=== PATIENT | male | born 1940 | race Caucasian/White ===

== ENCOUNTER 2018-02-01 01:06 | Outpatient (CLI) | payer MEDICARE, OTHER, SELFPAY ==
--- NOTE | 2018-02-01 09:41 | DI.REPORT_ITS ---
SYMPTOM/DIAGNOSIS: PLEURAL EFFUSION J90 PA AND LATERAL CHEST: There is a region of volume loss and/or infiltrate involving the left lower lobe where a small pleural effusion is seen. The right lung is clear. The heart is somewhat enlarged, unchanged when compared with previous images in this patient who is status post CABG. SUMMARY: A small left pleural effusion is demonstrated. There is a question regarding a region of atelectasis and/or infiltrate involving the left lower lobe. Findings raising the possibility of an acute pneumonitis.
== END 2018-02-01 01:07 ==
PROVIDERS: PCP Family Medicine; Visit Provider Internal Medicine Interventional Cardiology
DX: J90 Pleural effusion, not elsewhere classified (principal); J18.9 Pneumonia, unspecified organism; I51.7 Cardiomegaly; Z95.1 Presence of aortocoronary bypass graft
CPT/HCPCS: 71046

== ENCOUNTER 2018-02-06 23:43 | Emergency (ER) | payer MEDICARE, OTHER, SELFPAY ==
--- NOTE | 2018-02-06 00:30 | DI.REPORT_ITS ---
SYMPTOMS/DIAGNOSIS: CHEST PAIN PA AND LATERAL CHEST: The examination is compared with previous examination of 02/01/18. The previously noted left pleural effusion is again seen. The lungs appear grossly clear. No right pleural effusion identified. The heart is enlarged with multiple mediastinal vascular clips consistent with previous CABG surgery. CONCLUSION: Stable left pleural effusion.
[2018-02-07 00:09] VITALS: BP 118/53; PULSE 85; RESP 12; TEMP 36.6; O2SAT 97
[2018-02-07] MEDS: Aspirin 81 MG CHEW 324 MG CH (00:14)
[2018-02-07 00:39] LABS: Abs Immature Grans 0.02 k/cumm (0.0-0.09); Absolute Basophil Count 0.02 k/cumm (0.0-0.2); Absolute Eosinophil Count 0.07 k/cumm (0.0-0.7); Absolute Lymphocyte Count 0.47 k/cumm (1.2-3.4); Absolute Monocyte Count 0.66 k/cumm (0.11-0.7); Absolute Neutrophil Count 4.92 k/cumm (1.2-6.7); Basophils % 0.3; Eosinophils % 1.1; HCT 36.8 % (40.0-50.0); HGB 11.5 g/dL (13.5-17.5); Immature Grans % 0.3; Lymphocytes % 7.6; Mean Corp. HGB Concentration 31.3 g/dL (32.0-36.0); Mean Corpuscular Hemoglobin 23.7 pg (27.0-33.0); Mean Corpuscular Volume 75.7 fL (80-95); Mean Platelet Volume 9.2 fL (8.0-11.0); Monocytes % 10.7; Platelet Count 135 x1000/uL (130-400); RBC 4.86 m/cumm (4.50-6.00); RBC Distribution Width 18.1 % (11.8-14.1); White Blood Cell Count 6.16 k/cumm (4.4-10.8)
--- NOTE | 2018-02-07 00:47 | ED.GENADUL ---
Disposition Clinical Impression: NSTEMI (non-ST elevated myocardial infarction), Diaphoresis, Hypokalemia Disposition: STEVE ROBERTO ([facility]) Condition: Stable Medical Decision Making - Medical Decision Making This is a 77-year-old male who presents for evaluation of epigastric pressure. He presents with diaphoresis, subjective fever at home of 100.6, no documentation of the fever here. He has decrease in his appetite, as well as mild fatigue. Patient certainly minimizes his symptoms, he denies any chest pain arm pain or neck pain. He had no pain when he had his previous open heart surgery. With the patient's diaphoresis, as well as epigastric pressure was concern for potential myocardial infarction. EKG does show notable hyperacute T-wave changes in the lateral leads. No evidence of ST elevations at this time. Bedside ultrasound was performed and demonstrated a trace pericardial effusion, but EKG shows no signs of electrical art alterations, there is no evidence of ventricular compromise secondary to the patient's trace pericardial effusion. And concern for potential cardiac etiology for symptomatology. We have given him aspirin, chest x-ray appears to show nothing significant at this time. We are awaiting virtual radiology read. With the patient's symptomatology am concerned that he will need transfer for further cardiac evaluation as we have no current open rooms in the hospital. EKG 02/07/18 12:04 AM Rate 84, RI 218, QTc 456, QRS 100, sinus rhythm. No ST elevations or depressions. Inverted T waves in V5, V6, and lead III and aVF and lead II. Review of prior EKG from 12/25/17 reveals that these T-wave changes are all acute in nature. 1: 30 2 AM Chest x-ray results have returned from virtual radiology and show persistent suspected left pleural effusion which appears unchanged in volume, no acute findings are detected, no significant interval change. Patient's troponin has returned at 0.04, his potassium is slightly low and we will correct this year. With the patient's equivocal troponin, his EKG changes, his diaphoresis and other clinical symptoms examined concern for an N STEMI. We will contact [facility], start heparin, and transfer the patient. I feel that this is indicated secondary to his known cardiac disease, his recent CABG, other symptoms. Of note differential does include potential viral myocarditis with his mild fever that he had at home, as well as his elevated troponin EKG changes. EKG 02/07/18 time 1: 33am Rate 72, RI 230, QTc 460, QRS 102 sinus rhythm with a first-degree AV block, inverted T waves in V5 and V6, as well as 2, 3, and aVF. 1:58 am I did discuss the case with Bina, Dr. Jack who did recommend cardiology evaluation, however [facility] is completely [facility] and they were unable to accept the patient. He did recommend starting a heparin infusion at this time we will start with 1000 U/h of heparin infusion. I did contact the [facility] discussed the case with of cardiology, who agreed with the assessment and plan. They to recommended transfer to the [facility] for cardiology evaluation, serial troponins, and potential cardiac catheterization. Due to bed placement issues they have agreed to ER to ER transfer in the meantime until a bed opens up. Patient will be transferred. I have extensively reviewed the treatment plan with the patient. I have addressed all patient concerns at this time. I have also discussed the plan with the admitting physician and they agree with the current assessment and plan and have agreed to assume responsibility for the patient. All parties demonstrate verbal understanding and agreement with our assessment and plan at this time. History of Present Illness - General Chief complaint: Fever Stated complaint: UNKNOWN Time Seen by Provider: 02/06/18 23:44 - History of Present Illness Initial comments: Is a 77-year-old male with a past medical history of open heart surgery in August for which she received double bypass at [facility], pericardial effusion, polycystic kidney disease, hypertension, and sleep apnea as well as mild obesity. He presents today for evaluation of mild epigastric pain, pressure in his lower chest, decrease in appetite, as well as diaphoresis and a fever of 100.6 subjectively at home. He did take Tylenol prior to arrival. Patient's symptoms are not made worse with exertion. He has been notably diaphoretic over the last 2 hours. Patient denies any arm pain, shoulder pain or neck pain. He denies any cough or shortness of breath. He has no other complaints at this time. For his previous myocardial infarction he had no chest pain at that time, already other significant symptoms. Patient did take 81 mg of aspirin earlier today. Patient denies any other recent surgeries. He no longer smokes tobacco. He denies any IV or illicit drug use. He has no other complaints at this time. - Related Data RX: Cholecalciferol (Vitamin D3) [Vitamin D3] 1,000 unit PO DAILY NS 05/22/13 RX: Glucosamine Sulfate Dipot Chlr [Glucosamine] 1,000 mg PO DAILY NS 05/22/13 RX: Aspirin [Aspir 81] 81 mg PO DAILY 10/30/15 RX: Omeprazole [PriLOSEC] 20 mg PO DAILY 10/30/15 RX: Selenium [Selenium 200MCG] 100 mcg PO .EVERY OTHER DAY 10/30/15 RX: Chlorthalidone [Hygroton] 25 mg PO DAILY tab-cap 06/21/17 Bisoprolol Fumarate [Zebeta] 2.5 mg PO DAILY 12/05/17 RX: Acetaminophen [Pain Reliever] 1,000 mg PO Q6H PRN PRN 12/05/17 RX: Rosuvastatin [Crestor] 20 mg PO DAILY 12/05/17 RX: Allopurinol 200 mg PO DAILY 02/07/18 Allergies Allergy/AdvReac Type Severity Reaction Status Date / Time fentanyl AdvReac vomiting Unverified 02/07/18 01:02 Review of Systems Other: 10 point review of systems was performed, pertinent positives and negatives are noted in the history of present illness. Past Medical History - Past Medical History Medical history: arthritis, CAD, hyperlipidemia, hypertension Gout, obesity, MALCOM, polycystic kidney disease, esophageal stricture Surgical history: coronary bypass surgery General Exam - Other Other exam information: 1.Const: Well-nourished, Well-developed, appearing stated age, and notably diaphoretic. Patient demonstrates profuse sweating from the head. 2.Eyes: PERRL, no conjunctival injection, and symmetrical lids. 3.ENT: Atraumatic external nose and ears. Moist MM. Neck: Symmetric, trachea midline, No thyromegaly. 4.CVS: +S1/S2, No murmurs or gallops. Peripheral pulses 2+ and equal in all extremities. Brisk capillary refill in all extremities. 5.RESP: Unlabored respiratory effort. Clear to auscultation bilaterally. No wheezes rales or rhonchi, no evidence of friction rub, or other abnormality. 6.GI: Soft, Nontender/Nondistended, No hepatosplenomegaly. No guarding or rebound. Minimal pressure on palpation of the epigastric region. 7.MSK: Normocephalic/Atraumatic, Extremities w/o deformity or ttp No cyanosis or clubbing, Normal movement of all extremities 8.Skin: Warm, diaphoretic. No rashes or lesions. 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 Sensation grossly intact, no focal neurologic deficits. 10.Psych: (AAO) x3. Appropriate mood and affect Course Vital Signs - 24 hr 02/07/18 00:09 Temperature 36.6 C Pulse 85 Respiratory 12 Rate Blood Pressure 118/53 Pulse Oximetry 97
--- NOTE | 2018-02-07 00:50 | ED.GENADUL_ITS ---
Disposition Clinical Impression: NSTEMI (non-ST elevated myocardial infarction), Diaphoresis, Hypokalemia Disposition: STEVE ROBERTO ([facility]) Condition: Stable Medical Decision Making - Medical Decision Making This is a 77-year-old male who presents for evaluation of epigastric pressure. He presents with diaphoresis, subjective fever at home of 100.6, no documentation of the fever here. He has decrease in his appetite, as well as mild fatigue. Patient certainly minimizes his symptoms, he denies any chest pain arm pain or neck pain. He had no pain when he had his previous open heart surgery. With the patient's diaphoresis, as well as epigastric pressure was concern for potential myocardial infarction. EKG does show notable hyperacute T -wave changes in the lateral leads. No evidence of ST elevations at this time. Bedside ultrasound was performed and demonstrated a trace pericardial effusion , but EKG shows no signs of electrical art alterations, there is no evidence of ventricular compromise secondary to the patient's trace pericardial effusion. And concern for potential cardiac etiology for symptomatology. We have given him aspirin, chest x-ray appears to show nothing significant at this time. We are awaiting virtual radiology read. With the patient's symptomatology am concerned that he will need transfer for further cardiac evaluation as we have no current open rooms in the hospital. EKG 02/07/18 12:04 AM Rate 84, ND 218, QTc 456, QRS 100, sinus rhythm. No ST elevations or depressions. Inverted T waves in V5, V6, and lead III and aVF and lead II. Review of prior EKG from 12/25/17 reveals that these T-wave changes are all acute in nature. 1: 30 2 AM Chest x-ray results have returned from virtual radiology and show persistent suspected left pleural effusion which appears unchanged in volume, no acute findings are detected, no significant interval change. Patient's troponin has returned at 0.04, his potassium is slightly low and we will correct this year. With the patient's equivocal troponin, his EKG changes, his diaphoresis and other clinical symptoms examined concern for an N STEMI. We will contact [facility], start heparin, and transfer the patient. I feel that this is indicated secondary to his known cardiac disease, his recent CABG, other symptoms. Of note differential does include potential viral myocarditis with his mild fever that he had at home, as well as his elevated troponin EKG changes. EKG 02/07/18 time 1: 33am Rate 72, ND 230, QTc 460, QRS 102 sinus rhythm with a first-degree AV block, inverted T waves in V5 and V6, as well as 2, 3, and aVF. 1:58 am I did discuss the case with Bina, Dr. Jack who did recommend cardiology evaluation, however [facility] is completely [facility] and they were unable to accept the patient. He did recommend starting a heparin infusion at this time we will start with 1000 U/h of heparin infusion. I did contact the [facility] discussed the case with of cardiology, who agreed with the assessment and plan. They to recommended transfer to the [facility] for cardiology evaluation, serial troponins, and potential cardiac catheterization. Due to bed placement issues they have agreed to ER to ER transfer in the meantime until a bed opens up. Patient will be transferred. I have extensively reviewed the treatment plan with the patient. I have addressed all patient concerns at this time. I have also discussed the plan with the admitting physician and they agree with the current assessment and plan and have agreed to assume responsibility for the patient. All parties demonstrate verbal understanding and agreement with our assessment and plan at this time. History of Present Illness - General Chief complaint: Fever Stated complaint: UNKNOWN Time Seen by Provider: 02/06/18 23:44 - History of Present Illness Initial comments: Is a 77-year-old male with a past medical history of open heart surgery in August for which she received double bypass at [facility], pericardial effusion, polycystic kidney disease, hypertension, and sleep apnea as well as mild obesity. He presents today for evaluation of mild epigastric pain, pressure in his lower chest, decrease in appetite, as well as diaphoresis and a fever of 100.6 subjectively at home. He did take Tylenol prior to arrival. Patient's symptoms are not made worse with exertion. He has been notably diaphoretic over the last 2 hours. Patient denies any arm pain, shoulder pain or neck pain. He denies any cough or shortness of breath. He has no other complaints at this time. For his previous myocardial infarction he had no chest pain at that time, already other significant symptoms. Patient did take 81 mg of aspirin earlier today. Patient denies any other recent surgeries. He no longer smokes tobacco. He denies any IV or illicit drug use. He has no other complaints at this time. - Related Data RX: Cholecalciferol (Vitamin D3) [Vitamin D3] 1,000 unit PO DAILY NS 05/22/13 RX: Glucosamine Sulfate Dipot Chlr [Glucosamine] 1,000 mg PO DAILY NS 05/22/13 RX: Aspirin [Aspir 81] 81 mg PO DAILY 10/30/15 RX: Omeprazole [PriLOSEC] 20 mg PO DAILY 10/30/15 RX: Selenium [Selenium 200MCG] 100 mcg PO .EVERY OTHER DAY 10/30/15 RX: Chlorthalidone [Hygroton] 25 mg PO DAILY tab-cap 06/21/17 Bisoprolol Fumarate [Zebeta] 2.5 mg PO DAILY 12/05/17 RX: Acetaminophen [Pain Reliever] 1,000 mg PO Q6H PRN PRN 12/05/17 RX: Rosuvastatin [Crestor] 20 mg PO DAILY 12/05/17 RX: Allopurinol 200 mg PO DAILY 02/07/18 Allergies Allergy/AdvReac Type Severity Reaction Status Date / Time fentanyl AdvReac vomiting Unverified 02/07/18 01:02 Review of Systems Other: 10 point review of systems was performed, pertinent positives and negatives are noted in the history of present illness. Past Medical History - Past Medical History Medical history: arthritis, CAD, hyperlipidemia, hypertension Gout, obesity, MALCOM, polycystic kidney disease, esophageal stricture Surgical history: coronary bypass surgery General Exam - Other Other exam information: 1.Const: Well-nourished, Well-developed, appearing stated age, and notably diaphoretic. Patient demonstrates profuse sweating from the head. 2.Eyes: PERRL, no conjunctival injection, and symmetrical lids. 3.ENT: Atraumatic external nose and ears. Moist MM. Neck: Symmetric, trachea midline, No thyromegaly. 4.CVS: +S1/S2, No murmurs or gallops. Peripheral pulses 2+ and equal in all extremities. Brisk capillary refill in all extremities. 5.RESP: Unlabored respiratory effort. Clear to auscultation bilaterally. No wheezes rales or rhonchi, no evidence of friction rub, or other abnormality. 6.GI: Soft, Nontender/Nondistended, No hepatosplenomegaly. No guarding or rebound. Minimal pressure on palpation of the epigastric region. 7.MSK: Normocephalic/Atraumatic, Extremities w/o deformity or ttp No cyanosis or clubbing, Normal movement of all extremities 8.Skin: Warm, diaphoretic. No rashes or lesions. 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 Sensation grossly intact, no focal neurologic deficits. 10.Psych: (AAO) x3. Appropriate mood and affect Course Vital Signs - 24 hr 02/07/18 00:09 Temperature 36.6 C Pulse 85 Respiratory 12 Rate Blood Pressure 118/53 Pulse Oximetry 97
[2018-02-07 01:00] LABS: ALT 12 U/L (12-78); AST 11 U/L (15-37); Albumin 3.4 g/dL (3.4-5.0); Alkaline Phosphatase 65 U/L (46-116); Anion Gap 12.5 mmol/L (3-11); BUN 17 mg/dL (7-18); Bilirubin, Total 1.3 mg/dL (0.2-1.0); CO2 23.5 mmol/L (21.0-32.0); CREATININE 1.44 mg/dL (0.70-1.30); Calcium 9.4 mg/dL (8.5-10.1); Chloride 102 mmol/L (98-107); Estimated GFR 47.57 (mL/min/1.73m2); Glucose 145 mg/dL (70-100); Lipase 148 U/L (73-393); Potassium 3.1 mmol/L (3.5-5.1); Sodium 138 mmol/L (136-145); Troponin I 0.04 ng/mL (0.00-0.06)
[2018-02-07 01:07] LABS: Anisocytosis 1+; Diff Comment RBC Morph Reviewed
[2018-02-07] MEDS: Potassium Chloride 20 MEQ TABCR 40 MEQ PO (01:15)
--- NOTE | 2018-02-07 01:27 | DI.VRAD_ITS ---
EXAM: XR Chest, 2 Views EXAM DATE/TIME: 02/06/2018 12:33 AM CLINICAL HISTORY: 77 years old, male; Signs and symptoms; Fever; Prior surgery; Surgery date: 1-6 months; Surgery type: Bypass surgery in august; Patient HX: Fever, states no chest pain TECHNIQUE: XR of the chest, 2 views. COMPARISON: CR - CHEST 2 VIEWS PA,LAT 2018-02-01 09:40 FINDINGS: Lungs: Unremarkable. No consolidation. Pleural space: There remains obscuration of the left hemidiaphragm and opacity of the left lung base thought consistent with pleural effusion. Heart/Mediastinum: There is evidence of previous CABG surgery. Cardiac size is within normal limits. Vasculature: There is atherosclerotic plaque is seen within the aortic arch. Bones/joints: The osseous structures appear to be diffusely osteopenic and unchanged. Marginal osteophytic spurring is present throughout the thoracic vertebrae. Other findings: This finding appears unchanged in volume. IMPRESSION: 1. Persistent suspected left pleural effusion appears unchanged in volume. 2. No acute findings are detected. 3. No significant interval change. Dictated and Authenticated by: Roderick Villanueva MD. Ordering:ESCOBAR YANG MD
== END 2018-02-07 02:50 | disposition short-term general hospital (02) ==
PROVIDERS: Emergency Provider Student in an Organized Health Care Education/Training Program; PCP Family Medicine
DX: I21.4 Non-ST elevation (NSTEMI) myocardial infarction (principal); R61 Generalized hyperhidrosis; E87.6 Hypokalemia; R94.31 Abnormal electrocardiogram [ECG] [EKG]; Z95.828 Presence of other vascular implants and grafts; I10 Essential (primary) hypertension; I25.810 Atherosclerosis of coronary artery bypass graft(s) without angina pectoris; Z95.1 Presence of aortocoronary bypass graft
CPT/HCPCS: 36591; 71046; 93005; 96365; 96376; 99285 ×2; 36415; 80053; 83690; 84484; 85025; 93010

== ENCOUNTER 2018-02-12 10:24 | Outpatient (CLI) | payer MEDICARE, OTHER, SELFPAY | END 2018-02-12 10:25 | PROVIDERS: PCP Family Medicine; Visit Provider Internal Medicine Interventional Cardiology | DX: I49.3 Ventricular premature depolarization (principal); I25.10 Atherosclerotic heart disease of native coronary artery without angina pectoris | CPT/HCPCS: 93005; 93010; 99213 ==

== ENCOUNTER 2018-02-12 10:30 | Outpatient (CLI) | payer MEDICARE, OTHER, SELFPAY | END 2018-02-12 10:31 | PROVIDERS: PCP Family Medicine; Visit Provider Internal Medicine Interventional Cardiology | DX: I25.810 Atherosclerosis of coronary artery bypass graft(s) without angina pectoris (principal); I31.3 Pericardial effusion (noninflammatory); R06.09 Other forms of dyspnea; G47.30 Sleep apnea, unspecified; I10 Essential (primary) hypertension | CPT/HCPCS: 99213 ==

== ENCOUNTER 2018-02-22 14:08 | Outpatient (REF) | payer MEDICARE, OTHER, SELFPAY ==
[2018-02-22 19:23] LABS: Bilirubin Small (Negative); Blood Moderate (Negative); Clarity Cloudy; Glucose Negative (Negative); Ketones Negative (Negative); Leukocyte Esterase Moderate (Negative); Nitrite Negative (Negative); Specific Gravity 1.025 (1.005-1.025); pH 5.5 (5-8)
[2018-02-22 19:48] LABS: WBC >50 HPF (0-5)
[2018-02-22 19:49] LABS: Bacteria Many HPF (Negative); C & S Indicated? C&S Done As Ordered
== END 2018-02-22 14:09 ==
LOC: NCHCN 14:08
PROVIDERS: PCP Family Medicine; Visit Provider Family Medicine
DX: N39.0 Urinary tract infection, site not specified (principal)
CPT/HCPCS: 87077; 81003; 81015; 87086; 87186

== ENCOUNTER → 2018-03-08 10:52 | Outpatient (BNVA) | payer MEDICARE, OTHER, SELFPAY | PROVIDERS: PCP Family Medicine; Visit Provider Nurse Practitioner Gerontology | DX: N40.1 Benign prostatic hyperplasia with lower urinary tract symptoms (principal); R39.198 Other difficulties with micturition; Z80.42 Family history of malignant neoplasm of prostate; Z87.440 Personal history of urinary (tract) infections; I10 Essential (primary) hypertension | CPT/HCPCS: 36415; 81003; 84153; 99204; 99214 ==

== ENCOUNTER 2018-03-08 12:17 | Outpatient (CLI) | payer MEDICARE, OTHER, SELFPAY ==
[2018-03-09 09:09] LABS: PSA, Screening 2.1 ng/ml (0-6.5)
== END 2018-03-08 12:37 ==
PROVIDERS: PCP Family Medicine; Visit Provider Nurse Practitioner Gerontology
DX: Z12.5 Encounter for screening for malignant neoplasm of prostate (principal); Z80.42 Family history of malignant neoplasm of prostate
CPT/HCPCS: 36415; 84153

== ENCOUNTER → 2018-03-14 13:24 | Outpatient (BNVA) | payer MEDICARE, OTHER, SELFPAY | PROVIDERS: PCP Family Medicine; Visit Provider Nurse Practitioner Gerontology | DX: N40.1 Benign prostatic hyperplasia with lower urinary tract symptoms (principal); R39.198 Other difficulties with micturition | CPT/HCPCS: 99213 ==

== ENCOUNTER 2018-05-14 10:09 | Outpatient (CLI) | payer MEDICARE, OTHER, SELFPAY | END 2018-05-14 10:29 | PROVIDERS: PCP Family Medicine; Visit Provider Internal Medicine Interventional Cardiology | DX: I25.810 Atherosclerosis of coronary artery bypass graft(s) without angina pectoris (principal); I31.3 Pericardial effusion (noninflammatory); I77.819 Aortic ectasia, unspecified site; R06.00 Dyspnea, unspecified; I10 Essential (primary) hypertension; G47.30 Sleep apnea, unspecified | CPT/HCPCS: 93005; 93010; 99213 ==

== ENCOUNTER 2018-05-28 01:28 | Outpatient (CLI) | payer MEDICARE, OTHER, SELFPAY ==
[2018-05-28 14:46] LABS: Hemoglobin A1C 6.3 % (4.5-6.2)
[2018-05-28 15:44] LABS: BUN 26 mg/dL (7-18); CREATININE 1.27 mg/dL (0.70-1.30); Calcium 9.7 mg/dL (8.5-10.1); Chloride 104 mmol/L (98-107); Estimated GFR 54.99 (mL/min/1.73m2); Glucose 105 mg/dL (70-100); Potassium 4.6 mmol/L (3.5-5.1); Sodium 141 mmol/L (136-145)
[2018-06-03 08:12] LABS: Uric Acid 5.9 mg/dL (3.5-7.2)
== END 2018-05-28 01:48 ==
PROVIDERS: PCP Family Medicine; Visit Provider Family Medicine
DX: I10 Essential (primary) hypertension (principal); R73.01 Impaired fasting glucose
CPT/HCPCS: 36415; 80048; 83036; 84550

== ENCOUNTER 2018-06-07 11:00 | Outpatient (RCR) | payer SELFPAY ==
--- NOTE | 2018-06-05 12:14 | PR3E_ITS ---
77 year old male who graduated Cardiac Rehabilitation Phase 2 on January 22, 2018, s/p CABG 08/2017, voluntarily enrolled in maintenance Phase 3, 2 days per week. PMH: CABGx3 (09/11/17), HTN, HLD, CAD, MALCOM (CPAP compliant), osteoarthritis, gout , esophageal stricture, pituitary microadenoma. First day of exercise: 05/29/18: NuStep 10 minutes, UBE 10 minutes, Treadmill 10 minutes and Second UBE 10 minutes. Weight 288, BMI 31.70. BP at rest 154/80, HR rest 89bpm. HR with exercise 89-100 bpm, BP with exercise 119-165/64-72. ERI RPE scores 10-13. Tolerated exercise regimen without any adverse signs or symptoms. No concerns at this time, will continue to progress as tolerated.
== END 2018-06-25 23:59 ==
LOC: CR 11:00
PROVIDERS: PCP Family Medicine; Visit Provider Family Medicine
DX: Z95.1 Presence of aortocoronary bypass graft (principal); I25.10 Atherosclerotic heart disease of native coronary artery without angina pectoris; I10 Essential (primary) hypertension; Z51.89 Encounter for other specified aftercare

== ENCOUNTER 2018-06-21 07:56 | Outpatient (CLI) | payer MEDICARE, OTHER, SELFPAY ==
--- NOTE | 2018-06-21 11:03 | DI.RAD_ITS ---
SYMPTOM/DIAGNOSIS: ACUTE BRONCHITIS WITH BRONCHOSPASM, J20.9, DYSPNEA ON EXERTION PA AND LATERAL CHEST: The lungs are free of infiltrate. There is no pleural effusion. The cardiovascular structures are intact. The patient is status post CABG and coronary artery calcification is demonstrated. SUMMARY: No evidence of acute cardiopulmonary disease.
== END 2018-06-21 08:16 ==
PROVIDERS: PCP Family Medicine; Visit Provider Family Medicine
DX: J20.9 Acute bronchitis, unspecified (principal); R06.09 Other forms of dyspnea; Z95.1 Presence of aortocoronary bypass graft
CPT/HCPCS: 71046

== ENCOUNTER 2018-07-26 11:00 | Outpatient (RCR) | payer SELFPAY | END 2018-07-26 23:59 | disposition home or self-care (01) | LOC: CR 11:00 | PROVIDERS: PCP Family Medicine; Visit Provider Family Medicine | DX: Z95.1 Presence of aortocoronary bypass graft (principal); I25.10 Atherosclerotic heart disease of native coronary artery without angina pectoris; I10 Essential (primary) hypertension; Z51.89 Encounter for other specified aftercare ==

== ENCOUNTER 2018-08-13 20:14 | Outpatient (REF) | payer MEDICARE, OTHER, SELFPAY ==
[2018-08-13 20:28] LABS: Bilirubin Negative (Negative); Blood Moderate (Negative); Clarity Cloudy; Glucose Negative (Negative); Ketones Negative (Negative); Leukocyte Esterase Moderate (Negative); Nitrite Negative (Negative); Urobilinogen 0.2 EU/dL (Up TO 0.2); pH 5.5 (5-8)
[2018-08-13 20:40] LABS: C & S Indicated? Yes; WBC >50 HPF (0-5)
== END 2018-08-13 20:34 ==
LOC: NCHCN 20:14
PROVIDERS: PCP Family Medicine; Visit Provider Family Medicine
DX: Q61.3 Polycystic kidney, unspecified (principal)
CPT/HCPCS: 87077; 81003; 81015; 87086; 87186

== ENCOUNTER 2018-08-17 01:21 | Outpatient (CLI) | payer MEDICARE, OTHER, SELFPAY ==
--- NOTE | 2018-08-17 21:28 | PFT_ITS ---
DATE OF SERVICE: 08/17/18 REQUESTING PROVIDER: Devorah Epstein M.D. Spirometry shows no evidence of obstructive airways disease. No bronchodilator testing was carried out. Lung volumes show no evidence of restriction. Diffusion capacity mildly reduced, even when corrected to alveolar volume. Airways resistance normal. IMPRESSION: Isolated mild diffusion defect. Clinical correlation recommended. If the diagnosis of cough variant asthma is in question, proceeding with methylcholine challenge testing may prove to be useful.
== END 2018-08-17 01:41 ==
PROVIDERS: PCP Family Medicine; Visit Provider Family Medicine
DX: R05 Cough (principal)
CPT/HCPCS: 94150; 94726; 94729; 94010

== ENCOUNTER 2018-08-23 12:53 | Outpatient (RCR) | payer SELFPAY | END 2018-08-23 23:59 | disposition home or self-care (01) | LOC: CR 12:53 | PROVIDERS: PCP Family Medicine; Visit Provider Family Medicine | DX: Z95.1 Presence of aortocoronary bypass graft (principal); I25.10 Atherosclerotic heart disease of native coronary artery without angina pectoris; I10 Essential (primary) hypertension; Z51.89 Encounter for other specified aftercare ==

== ENCOUNTER 2018-09-11 11:00 | Outpatient (RCR) | payer SELFPAY | END 2018-09-23 23:59 | disposition home or self-care (01) | LOC: CR 11:00 | PROVIDERS: PCP Family Medicine; Visit Provider Family Medicine | DX: Z95.1 Presence of aortocoronary bypass graft (principal); I25.10 Atherosclerotic heart disease of native coronary artery without angina pectoris; I10 Essential (primary) hypertension; Z51.89 Encounter for other specified aftercare ==

== ENCOUNTER 2018-09-18 12:33 | Outpatient (REF) | payer MEDICARE, OTHER, SELFPAY ==
[2018-09-18 12:55] LABS: NT-proBNP 2437 pg/mL
== END 2018-09-18 12:53 ==
LOC: NCHCN 12:33
PROVIDERS: PCP Family Medicine; Visit Provider Family Medicine
DX: R06.02 Shortness of breath (principal); J20.9 Acute bronchitis, unspecified
CPT/HCPCS: 83880

== ENCOUNTER 2018-09-21 15:46 | Outpatient (CLI) | payer MEDICARE, OTHER, SELFPAY ==
--- NOTE | 2018-09-21 16:11 | DI.RAD_ITS ---
SYMPTOM/DIAGNOSIS: SOB, R06/02, ELEVATED BNAP PA AND LATERAL CHEST: There are multiple mediastinal vascular clips consistent with previous CABG surgery. Cardiac size is within normal limits. Lungs are clear. No pleural effusion is seen. CONCLUSION: No evidence of acute disease.
== END 2018-09-21 16:06 ==
PROVIDERS: PCP Family Medicine; Visit Provider Family Medicine
DX: R06.02 Shortness of breath (principal); R79.89 Other specified abnormal findings of blood chemistry
CPT/HCPCS: 71046

== ENCOUNTER 2018-09-25 03:04 | Outpatient (RCR) | payer SELFPAY | END 2018-10-23 23:59 | disposition home or self-care (01) | LOC: CR 03:04 | PROVIDERS: PCP Family Medicine; Visit Provider Family Medicine | DX: Z95.1 Presence of aortocoronary bypass graft (principal); I25.10 Atherosclerotic heart disease of native coronary artery without angina pectoris; I10 Essential (primary) hypertension; Z51.89 Encounter for other specified aftercare ==

== ENCOUNTER 2018-10-02 00:53 | Outpatient (CLI) | payer MEDICARE, SELFPAY ==
--- NOTE | 2018-10-02 10:30 | MERGE_ITS ---
*[facility]* *[facility]* [address] [place] [address] Date of study: 10/02/2018 Transthoracic Echocardiography M-mode, complete 2D, complete spectral Doppler, and color Doppler *STUDY CONCLUSIONS* Summary: 1. Left ventricle: The cavity size was normal. Wall thickness was increased in a pattern of moderate LVH. There was severe asymmetric hypertrophy of the septum. Systolic function was hyperdynamic. The estimated ejection fraction was 65-70%. There was no dynamic obstruction. Wall motion was normal; there were no regional wall motion abnormalities. Septal thickness, ED (PLAX): 2.0cm. 2. Aortic valve: Trileaflet; moderately calcified leaflets. There was mild stenosis. There was mild regurgitation. Peak velocity (S): 2.2m/sec. Mean gradient (S): 11.1mm Hg. Valve area (VTI): 2cm^2. 3. 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 The maximal diameter was 4.5cm. 4. Left atrium: The atrium was mildly dilated. 5. Right ventricle: The cavity size was dilated. Wall thickness was normal. Systolic function was normal. Minor axis dimension, ED (basilar, A4C): 5.7cm. 6. Right atrium: The atrium was dilated. Area ES (A4C): 25.3cm^2. *PATIENT PRESENTATION* Height: 182.9cm ((72in) ) S/D Pressure: 135 / 74 Weight: 126.6kg ((278.4lb) ) BSA: 2.58m^2 Test start time: 10:40 AM. Test stop time: 11:40 AM. CONSULTING Devorah Epstein PERFORMING Unknown PERFORMING [facility] PLASTIC EXTRUDING MACHINE OPERATOR Virgen Strauss RT JonelR)(CT), [facility] ORDERING Gerald Rutledge REFERRING Gerald Rutledge *PROCEDURE DATA* Procedure information: This study was interpreted by [facility]. Pertinent images and digital data are archived for permanent storage and are available for subsequent review. Comparison was made to the study of May 2017. Study status: Routine. Transthoracic echocardiography. M-mode, complete 2D, complete spectral Doppler, and color Doppler. A Transthoracic Echocardiogram was performed. Scanning was performed from the parasternal, apical, subcostal, and suprasternal notch acoustic windows. Images were obtained using an [id number] cardiac ultrasound machine. Image quality was adequate. Study completion: The patient tolerated the procedure well. There were no complications. History: PMH: Increasing SOB. elevated BNaP. r06.02 CAD. *CARDIAC ANATOMY* Left ventricle: The cavity size was normal. Wall thickness was increased in a pattern of moderate LVH. There was severe asymmetric hypertrophy of the septum. Systolic function was hyperdynamic. The estimated ejection fraction was 65-70%. There was no dynamic obstruction. Wall motion was normal; there were no regional wall motion abnormalities. Diastolic parameters were normal for age. Aortic valve: Trileaflet; moderately calcified leaflets. Valve mobility was restricted. Doppler: There was mild stenosis. There was mild regurgitation. VTI ratio of LVOT to aortic valve: 0.56. Valve area (VTI): 2cm^2. Indexed valve area (VTI): 0.8cm^2/m^2. Peak velocity ratio of LVOT to aortic valve: 0.43. Valve area (Vmax): 1.6cm^2. Indexed valve area (Vmax): 0.6cm^2/m^2. Mean velocity ratio of LVOT to aortic valve: 0.51. Valve area (Vmean): 1.8cm^2. Indexed valve area (Vmean): 0.7cm^2/m^2. Mean gradient (S): 11.1mm Hg. Peak gradient (S): 19.6mm Hg. 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 The maximal diameter was 4.5cm. Aortic root: The aortic root was moderately dilated. 4.5 cm. Ascending aorta: The ascending aorta was moderately dilated. 4.5 cm. Aortic arch: The aortic arch was normal in size. Mitral valve: Structurally normal valve. Mobility was not restricted. Doppler: Transvalvular velocity was within the normal range. There was no evidence for stenosis. There was no significant regurgitation. Valve area by pressure half-time: 3cm^2. Indexed valve area by pressure half-time: 1.1cm^2/m^2. Peak gradient (D): 3.8mm Hg. Left atrium: The atrium was mildly dilated. Right ventricle: The cavity size was dilated. Wall thickness was normal. Systolic function was normal. Pulmonic valve: Doppler: Transvalvular velocity was within the normal range. There was no evidence for stenosis. There was no significant regurgitation. Tricuspid valve: Structurally normal valve. Doppler: Transvalvular velocity was within the normal range. There was no evidence for stenosis. There was no significant regurgitation. Pulmonary artery: Systolic pressure could not be accurately estimated. Right atrium: The atrium was dilated. Pericardium: There was no pericardial effusion. Systemic veins: Inferior vena cava: Well visualized. The vessel was patent and normal in size. The respirophasic diameter changes were in the normal range (greater than or equal to 50%). Baseline ECG: Sinus bradycardia. Measurements Left ventricle Value 06/08/2017 Reference LV ID, ED, PLAX 5.0 cm 4.2 3.5 - 6.0 LV ID, ES, PLAX 3.1 cm 3.0 2.1 - 4.0 LV PW thickness, ED, PLAX 1.4 cm 1.6 LV end-diastolic volume, 119 ml 79 1-p A2C LV ejection fraction, 1-p 64 % 59 A2C LV end-diastolic volume, 103 ml 103 1-p A4C LV ejection fraction, 1-p 71 % 48 A4C LV e', lateral 0.101 m/sec LV E/e', lateral 10 LV e', medial 0.072 m/sec LV E/e', medial 14 LV e', average 0.087 m/sec LV E/e', average 11 Ventricular septum Value 06/08/2017 Reference IVS thickness, ED, PLAX 2.0 cm 1.9 LVOT Value 06/08/2017 Reference LVOT ID, A-P 2.1 cm 2.2 LVOT area 3.6 cm^2 3.9 LVOT peak velocity, S 0.96 m/sec 1.07 LVOT mean velocity, S 0.8 m/sec LVOT VTI, S 25.2 cm 24.3 LVOT peak gradient, S 3.7 mm Hg LVOT mean gradient, S 2.7 mm Hg 2.9 Stroke volume (SV), LVOT 90 ml DP Stroke index (SV/bsa), 35 ml/m^2 LVOT DP Aortic valve Value 06/08/2017 Reference Aortic valve peak 2.2 m/sec velocity, S Aortic valve mean 1.57 m/sec 0.01 velocity, S Aortic valve VTI, S 45.0 cm Aortic mean gradient, S 11.1 mm Hg 8.3 Aortic peak gradient, S 19.6 mm Hg VTI ratio, LVOT/AV 0.56 Aortic valve area, VTI 2 cm^2 Velocity ratio, peak, 0.43 LVOT/AV Aortic valve area, peak 1.6 cm^2 velocity Velocity ratio, mean, 0.51 LVOT/AV Aortic valve area, mean 1.8 cm^2 velocity Aortic valve area/bsa, 0.7 cm^2/m^2 mean velocity Aorta Value 06/08/2017 Reference Aortic root ID, ED 4.5 cm Ascending aorta ID, A-P, S 4.5 cm 4.6 Left atrium Value 06/08/2017 Reference LA ID, A-P, ES 4.1 cm LA ID/bsa, A-P 1.6 cm/m^2 <=2.2 LA area, ES, A4C (H) 24.3 cm^2 8.8 - 23.4 LA area, ES, A2C 26 cm^2 LA volume/bsa, ES, 1-p A4C 35 ml/m^2 LA volume, ES, 2-p 84 ml LA volume/bsa, ES, 2-p 32 ml/m^2 LA/aortic root ratio 0.91 1.05 Mitral valve Value 06/08/2017 Reference Mitral E-wave peak 0.98 m/sec 0.57 velocity Mitral A-wave peak 0.74 m/sec 0.85 velocity Mitral deceleration time (H) 257 ms 315 150 - 230 Mitral pressure half-time 75 ms 91 Mitral peak gradient, D 3.8 mm Hg Mitral E/A ratio, peak 1.33 0.67 Mitral valve area, PHT, DP 3 cm^2 2.4 Pulmonary veins Value 06/08/2017 Reference Pulmonary vein peak 0.43 m/sec 0.47 velocity, S Pulmonary vein peak 0.69 m/sec 0.36 velocity, D Pulmonary vein velocity 0.62 1.3 ratio, peak, S/D Tricuspid valve Value 06/08/2017 Reference Tricuspid regurg peak 2.7 m/sec 2.6 velocity Tricuspid peak RV-RA 29.2 mm Hg 26.5 gradient Right atrium Value 06/08/2017 Reference RA area, ES, A4C (H) 25.3 cm^2 8.3 - 19.5 Right ventricle Value 06/08/2017 Reference RV ID, minor axis, ED, A4C 5.7 cm base Legend: (L) and (H) issac values outside specified reference range. I have personally reviewed the images and have reviewed and edited the reported findings. Electronically signed by Maxwell Marks 10/02/2018 12:58
== END 2018-10-02 01:13 ==
PROVIDERS: PCP Family Medicine; Visit Provider Family Medicine
DX: R06.02 Shortness of breath (principal); I25.10 Atherosclerotic heart disease of native coronary artery without angina pectoris; I06.2 Rheumatic aortic stenosis with insufficiency; I71.2 Thoracic aortic aneurysm, without rupture; I51.7 Cardiomegaly
CPT/HCPCS: 93306

== ENCOUNTER 2018-10-08 09:25 | Outpatient (CLI) | payer MEDICARE, OTHER, SELFPAY | END 2018-10-08 09:45 | PROVIDERS: PCP Family Medicine; Visit Provider Internal Medicine Interventional Cardiology | DX: I25.10 Atherosclerotic heart disease of native coronary artery without angina pectoris (principal); I31.3 Pericardial effusion (noninflammatory); R06.00 Dyspnea, unspecified; I10 Essential (primary) hypertension; R05 Cough | CPT/HCPCS: 99214; 99215; 93005; 93010 ==

== ENCOUNTER 2018-10-22 12:29 | Outpatient (CLI) | payer MEDICARE, OTHER, SELFPAY ==
[2018-10-22 13:10] LABS: HCT 27.3 % (40.0-50.0); HGB 7.6 g/dL (13.5-17.5); Mean Corp. HGB Concentration 27.8 g/dL (32.0-36.0); Mean Corpuscular Hemoglobin 18.9 pg (27.0-33.0); Mean Corpuscular Volume 67.9 fL (80-95); Platelet Count 260 x1000/uL (130-400); RBC 4.02 m/cumm (4.50-6.00); RBC Distribution Width 18.8 % (11.8-14.1); White Blood Cell Count 5.56 k/cumm (4.4-10.8)
[2018-10-22 14:13] LABS: Anion Gap 13.2 mmol/L (3-11); BUN 25 mg/dL (7-18); CO2 23.8 mmol/L (21.0-32.0); CREATININE 1.44 mg/dL (0.70-1.30); Calcium 9.2 mg/dL (8.5-10.1); Chloride 103 mmol/L (98-107); Estimated GFR 47.45 (mL/min/1.73m2); Glucose 141 mg/dL (70-100); Potassium 3.8 mmol/L (3.5-5.1); Sodium 140 mmol/L (136-145)
[2018-10-22 14:16] LABS: NT-proBNP 2000 pg/mL
[2018-10-22 18:23] LABS: Iron 11 ug/dL (50-175); Total Iron Binding Capacity 329 ug/dL (250-450); Transferrin Sat 3 % (20-55)
[2018-10-22 18:50] LABS: Ferritin 37 ng/mL (8-388); Folate 19.8 ng/mL (8.6-20.0); Vitamin B12 382 pg/mL (193-986)
== END 2018-10-22 12:49 ==
PROVIDERS: PCP Family Medicine; Visit Provider Internal Medicine Interventional Cardiology
DX: I48.91 Unspecified atrial fibrillation (principal); R06.02 Shortness of breath; D64.9 Anemia, unspecified; I10 Essential (primary) hypertension
CPT/HCPCS: 36415; 80048; 80051; 84520; 85027; 82565; 82607; 82728; 82746; 83540; 83550; 83880

== ENCOUNTER 2018-10-22 16:06 | Outpatient (REF) | payer MEDICARE, OTHER, SELFPAY | END 2018-10-22 16:26 | LOC: NCHCN 16:06 | PROVIDERS: PCP Family Medicine; Visit Provider Family Medicine | DX: R05 Cough (principal) | CPT/HCPCS: 87077; 87070; 87205 ==

== ENCOUNTER 2018-10-24 01:14 | Outpatient (CLI) | payer MEDICARE, OTHER, SELFPAY ==
--- NOTE | 2018-10-24 08:00 | DI.CT_ITS ---
SYMPTOM/DIAGNOSIS: CHRONIC COUGH, R05, FEVER, ? PNEUMONIA, EMPYEMA, PLEURAL EFFUSION CHEST CT: CT scan of the chest was performed without intravenous contrast material. Comparison is made with 06/16/17 and 12/05/17. There is atherosclerosis of the thoracic aorta. Heart size is within normal limits. No significant pericardial effusion is seen. The patient appears to be status post CABG. Sternal wires are in place. No significant thoracic adenopathy is appreciated. No pleural effusion or pneumothorax is identified. There is scarring or atelectasis seen in the right lung base. No focal consolidating infiltrates or pulmonary nodules are identified. The tracheobronchial tree is unremarkable. There are degenerative changes seen in the spine. Marked degenerative changes are seen in the shoulders bilaterally. IMPRESSION: No acute pulmonary process. No evidence of pleural effusion, consolidating infiltrate or focal fluid collection to suggest an empyema.
== END 2018-10-24 01:34 ==
PROVIDERS: PCP Family Medicine; Visit Provider Family Medicine
DX: R50.9 Fever, unspecified (principal); Z95.1 Presence of aortocoronary bypass graft
CPT/HCPCS: 71250

== ENCOUNTER 2018-10-24 05:36 | Outpatient (RCR) | payer SELFPAY | END 2018-11-23 23:59 | disposition home or self-care (01) | LOC: CR 05:36 | PROVIDERS: PCP Family Medicine; Visit Provider Family Medicine | DX: Z95.1 Presence of aortocoronary bypass graft (principal); I25.10 Atherosclerotic heart disease of native coronary artery without angina pectoris; I10 Essential (primary) hypertension; Z51.89 Encounter for other specified aftercare ==

== ENCOUNTER 2018-10-25 01:25 | Outpatient (CLI) | payer MEDICARE, OTHER, SELFPAY ==
[2018-10-25 12:15] LABS: HGB 7.7 g/dL (13.5-17.5); Mean Corp. HGB Concentration 27.5 g/dL (32.0-36.0); Mean Platelet Volume 8.8 fL (8.0-11.0); Platelet Count 238 x1000/uL (130-400); RBC 4.06 m/cumm (4.50-6.00); RBC Distribution Width 19.1 % (11.8-14.1); White Blood Cell Count 4.46 k/cumm (4.4-10.8)
[2018-10-26 12:38] LABS: IgA 183 mg/dL (85-499); Interpretation SEE COMMENTS; Tissue Transglutaminase IgA <1.2 U/mL (<4.0)
== END 2018-10-25 01:45 ==
PROVIDERS: PCP Family Medicine; Visit Provider Family Medicine
DX: D64.9 Anemia, unspecified (principal)
CPT/HCPCS: 36415; 82784; 83516; 85027

== ENCOUNTER 2018-10-31 01:23 | Outpatient (CLI) | payer MEDICARE, OTHER, SELFPAY ==
[2018-10-31 12:17] LABS: HCT 31.9 % (40.0-50.0); HGB 8.7 g/dL (13.5-17.5); Mean Corp. HGB Concentration 27.3 g/dL (32.0-36.0); Mean Corpuscular Hemoglobin 19.3 pg (27.0-33.0); Mean Corpuscular Volume 70.9 fL (80-95); Mean Platelet Volume 8.7 fL (8.0-11.0); RBC Distribution Width 21.7 % (11.8-14.1); White Blood Cell Count 7.97 k/cumm (4.4-10.8)
[2018-10-31 12:22] LABS: Platelet Count 284 x1000/uL (130-400)
[2018-10-31 14:40] LABS: Ferritin 18 ng/mL (8-388)
== END 2018-10-31 01:43 ==
PROVIDERS: PCP Family Medicine; Visit Provider Family Medicine
DX: D50.9 Iron deficiency anemia, unspecified (principal)
CPT/HCPCS: 36415; 85027; 86850; 86900; 86901; 82728

== ENCOUNTER 2018-11-07 08:03 | Outpatient (CLI) | payer MEDICARE, OTHER, SELFPAY | END 2018-11-07 08:23 | PROVIDERS: PCP Family Medicine; Visit Provider Internal Medicine Interventional Cardiology | DX: I25.10 Atherosclerotic heart disease of native coronary artery without angina pectoris (principal); I31.3 Pericardial effusion (noninflammatory); I77.819 Aortic ectasia, unspecified site; I10 Essential (primary) hypertension; R06.09 Other forms of dyspnea; R05 Cough | CPT/HCPCS: 99214; 93005; 93010; 99213 ==

== ENCOUNTER 2018-11-21 02:01 | Outpatient (CLI) | payer MEDICARE, OTHER, SELFPAY ==
[2018-11-21 10:58] LABS: Abs Immature Grans 0.01 k/cumm (0.0-0.09); Absolute Basophil Count 0.02 k/cumm (0.0-0.2); Absolute Eosinophil Count 0.28 k/cumm (0.0-0.7); Absolute Lymphocyte Count 0.78 k/cumm (1.2-3.4); Absolute Monocyte Count 0.32 k/cumm (0.11-0.7); Basophils % 0.7; Eosinophils % 10.3; HCT 37.7 % (40.0-50.0); HGB 10.9 g/dL (13.5-17.5); Immature Grans % 0.4; Lymphocytes % 28.8; Mean Corp. HGB Concentration 28.9 g/dL (32.0-36.0); Mean Corpuscular Hemoglobin 23.4 pg (27.0-33.0); Mean Corpuscular Volume 81.1 fL (80-95); Mean Platelet Volume 8.4 fL (8.0-11.0); Monocytes % 11.8; Platelet Count 145 x1000/uL (130-400); RBC 4.65 m/cumm (4.50-6.00); White Blood Cell Count 2.71 k/cumm (4.4-10.8)
[2018-11-21 11:42] LABS: Anisocytosis 3+; Diff Comment Diff Reviewed; Ovalocytes 2+; Polychromasia Present
[2018-11-21 11:43] LABS: Poikilocytes 2+
[2018-11-21 11:58] LABS: Ferritin 41 ng/mL (8-388)
== END 2018-11-21 02:21 ==
PROVIDERS: PCP Family Medicine; Visit Provider Family Medicine
DX: D50.9 Iron deficiency anemia, unspecified (principal)
CPT/HCPCS: 36415; 82728; 85025

== ENCOUNTER 2018-12-20 11:26 | Outpatient (RCR) | payer SELFPAY | END 2018-12-23 23:59 | disposition home or self-care (01) | LOC: CR 11:26 | PROVIDERS: PCP Family Medicine; Visit Provider Family Medicine | DX: Z95.1 Presence of aortocoronary bypass graft (principal); I25.10 Atherosclerotic heart disease of native coronary artery without angina pectoris; I10 Essential (primary) hypertension; Z51.89 Encounter for other specified aftercare ==

== ENCOUNTER 2018-12-25 14:02 | Outpatient (CLI) | payer MEDICARE, OTHER, SELFPAY ==
[2018-12-25 16:03] LABS: Anion Gap 11.4 mmol/L (3-11); BUN 20 mg/dL (7-18); CO2 23.6 mmol/L (21.0-32.0); CREATININE 1.26 mg/dL (0.70-1.30); Calcium 9.5 mg/dL (8.5-10.1); Calculated LDL 38 mg/dL; Chloride 110 mmol/L (98-107); Cholesterol 97 mg/dL (50-200); Estimated GFR 55.35 (mL/min/1.73m2); Glucose 97 mg/dL (70-100); HDL Cholesterol 36 mg/dL (40-60); Potassium 4.3 mmol/L (3.5-5.1); Sodium 145 mmol/L (136-145); Triglyceride 116 mg/dL (30-150)
[2018-12-25 17:31] LABS: Hemoglobin A1C 5.5 % (4.5-6.2)
== END 2018-12-25 14:22 ==
PROVIDERS: PCP Family Medicine; Visit Provider Family Medicine
DX: I10 Essential (primary) hypertension (principal); R73.01 Impaired fasting glucose; N18.3 Chronic kidney disease, stage 3 (moderate); D50.9 Iron deficiency anemia, unspecified
CPT/HCPCS: 36415; 80048; 80061; 83721; 83036

== ENCOUNTER 2019-01-03 01:32 | Outpatient (CLI) | payer MEDICARE, OTHER, SELFPAY ==
[2019-01-03 12:41] LABS: HCT 45.9 % (40.0-50.0); HGB 14.4 g/dL (13.5-17.5); Mean Corp. HGB Concentration 31.4 g/dL (32.0-36.0); Mean Corpuscular Hemoglobin 27.3 pg (27.0-33.0); Mean Corpuscular Volume 87.1 fL (80-95); Mean Platelet Volume 9.7 fL (8.0-11.0); Platelet Count 140 x1000/uL (130-400); RBC 5.27 m/cumm (4.50-6.00); RBC Distribution Width 18.1 % (11.8-14.1); White Blood Cell Count 4.61 k/cumm (4.4-10.8)
== END 2019-01-03 01:52 ==
PROVIDERS: PCP Family Medicine; Visit Provider Family Medicine
DX: D50.9 Iron deficiency anemia, unspecified (principal)
CPT/HCPCS: 36415; 85027

== ENCOUNTER 2019-01-08 11:08 | Emergency (ER) | payer MEDICARE, OTHER, SELFPAY ==
[2019-01-08] VITALS (47 sets, daily range): BP systolic 148–177; BP diastolic 79–100; PULSE 60–124; RESP 10–25; TEMP 37.3; O2SAT 93–97
--- NOTE | 2019-01-08 11:25 | DI.RAD_ITS ---
SYMPTOMS/DIAGNOSIS: CHEST PAIN CHEST: Frontal and lateral views. Comparison 06/21/18 and 09/21/17. The cardiac silhouette is within normal limits. There are sternal wires and mediastinal clips in place. There is slight increased in the interstitial prominence particularly in the lung bases when compared to the prior examination. This may be due to vascular overcrowding but the possibility of an interstitial pneumonitis or edema should be considered. No focal consolidating infiltrates or effusions are seen. No pneumothorax is identified. Degenerative changes are seen in the spine. IMPRESSION: Mild interstitial prominence. This may represent an interstitial pneumonia, edema or vascular overcrowding.
--- NOTE | 2019-01-08 11:26 | W.ED.GENAD ---
Discharge Plan Disposition Patient Disposition: HOME Condition: Fair Discharge Details Chief Complaint: Chest Pain Clinical Impression: Atrial tachycardia Primary Care Provider: Devorah Epstein ED Provider: Ruth Ya Home Meds and New Rx's Prescriptions: Continued Dulera 100-5 mcg/actuation HFA aerosol inhaler 2 puff IH BID RF: 0 albuterol sulfate [ProAir HFA] 90 mcg/actuation HFA aerosol inhaler 1 puff IH Q6H PRNRF: 0 glucosamine sulfate 2KCl 1,000 MG tablet 1,000 mg PO DAILY RF: 0 cholecalciferol (vitamin D3) 1,000 UNIT tablet 1,000 unit PO DAILY RF: 0 tamsulosin [Flomax] 0.4 mg capsule 0.4 mg PO DAILY Qty: 90 RF: 2 hydralazine 10 mg tablet 20 mg PO TID Qty: 180 RF: 0 furosemide [Lasix] 20 mg tablet 20 mg PO DAILY Qty: 30 RF: 11 aspirin [Aspir-81] 81 MG tablet,delayed release (DR/EC) 81 mg PO DAILY RF: 0 omeprazole 20 MG capsule,delayed release(DR/EC) 20 mg PO DAILY RF: 0 selenium 200 mcg tablet 200 mcg PO DAILY RF: 0 bisoprolol fumarate 5 MG tablet 2.5 mg PO DAILY RF: 0 rosuvastatin [Crestor] 20 MG tablet 20 mg PO DAILY RF: 0 allopurinol 100 MG tablet 200 mg PO DAILY RF: 0 Discharge Instructions Instructions: Atrial Tachycardia (ED), Valsalva Maneuver (ED) Additional Instructions: Please continue with medications as previously prescribed. 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 Keep upcoming appointment with cardiology. If you develop recurrent symptoms please attempt valsalva technique as discussed, attached is description for this. If you develop fevers/chills, chest pain, shortness of breath, difficulty breathing or other new/worsening symptosm please seek care urgently once again. Referrals: Cristobal Marie MD [ [facility] STAFF PHYSICIAN] - Devorah Epstein MD [Primary Care Provider] - Medical Decision Making Patient is a 78-year-old male with history of CAD, gout, hypertension, hyperlipidemia, obesity, MALCOM, cystic kidney disease, esophageal stricture, pituitary microadenoma, [place]. Patient underwent a bypass at [facility] in August 2017. Patient was here being treated at cardiac rehab when he developed feeling of tightness in the right side of his upper breast. Patient initially was evaluated, he was noted to be slightly hypertensive, baseline for the patient, with normal heart rate. However, when the symptoms began the patient was reevaluated and noted to have a heart rate of 126. EKG was obtained at that time showing diffuse ST depression. Patient reports that he was sitting at the time the onset of symptoms and symptoms spontaneously resolved next 10 minutes after their onset. At this time, he is asymptomatic. Denies any chest pain or shortness of breath. No recent travel. Patient does report that after his CABG, he developed fluid around the heart and had to have 1 L taken off. States that this does not feel like he felt at that time. States at that point he was feeling quite fatigued but that he does not have any symptoms at this time. Patient states he has had one similar incident approximately 1 month ago. At that point, the patient had been exercising, had stopped and allowed his heart rate did come down and then symptoms developed. Again, the symptoms lasted approximately 10 to 15 minutes and spontaneously resolved. On exam, patient appears obese, he is in a regular rate and rhythm with a heart rate of 86 at this time. Patient is noted to be hypertensive with a blood pressure of 176/100. He has bilateral pitting edema. Oxygen is maintained at 95% on room air. He is afebrile and nontoxic-appearing EKG was reviewed by Dr. Ramos. Were able to compare a old EKG, the one from cardiac rehab as well as one obtained here. Patient at this time is in normal sinus rhythm with a rate of 86. He has nonspecific ST depression and T wave abnormality. At the time the EKG was completed in cardiac rehab, patient had similar ST depressions with a rate of 126. Patient takes 80 mg of aspirin daily, we will augment this for a full dosing for the patient. The patient is asymptomatic this time, will not pursue further treatment at this point. Plan for labs, chest x-ray and discussion with cardiology. Lab work reviewed. No blood cell count is slightly low at 3.9, patient has been low historically. PT PTT within normal limits. BUN is slightly elevated at 20. Patient's BNP is 952, this is not atypical for the patient. He has been elevated to over 2000 historically. His troponin is less than 0.05. Patient is resting comfortably, his blood pressures down. He remains asymptomatic. Plan to consult cardiology. Reviewed from radiologist is still pending. Consulted with Dr. Marks. He advised patient is demonstrating atrial tachycardia. He advised 30 day event monitor and f/u with cardiology after monitor. Advised teaching patient how to valsalva if symptoms recur. Did not recommend hospitalization, questioned this specifically with the ST depression. Repeat troponin pending. Repeat troponin 0.05. Patient remains asymptomatic. Will follow cardiology recommendations with [employer] placement. Will repeat EKG. Repeat EKG reviewed by Dr. Ramos with no acute changes noted. Patient feels comfortable with discharge, prefers discharge. Is able to return with new/worsneing symptoms. He was given strict return precautions. He has family with him in agreement iwth this plan. All of his questions and concerns were addressed, he is in agreement with this plan. HPI General Mode of arrival: ambulatory. Date/Time Provider Initiated Documentation: 01/08/19 11:15. Limitations to Documentation: no limitations. Information obtained by: patient, family, RN/MD (nursing staff from cardiac rehab) and RN notes reviewed. History of Present Illness 78 year old M presents to the emergency department with the chief complaint of chest tightness, described as similar to prior episodes (has had one similar episode one month ago), with intensity rated at 1 (denies pain). Quality is described as other (tightness), and is localized to the chest (superior right side of chest). Patient reports no radiation. Patient started experiencing this minute(s) and it has been now resolved (last 10 minutes). No relieving factors improve symptom(s), No exacerbating factors reported . Patient notes no other symptoms.. Patient did receive the following treatments prior to arrival, none Related Data Home Medications Medication Instructions Recorded Confirmed cholecalciferol (vitamin D3) 1,000 unit PO DAILY NS 05/22/13 01/08/19 glucosamine sulfate 2KCl 1,000 mg PO DAILY NS 05/22/13 01/08/19 aspirin [Aspir-81] 81 mg PO DAILY 10/30/15 01/08/19 omeprazole 20 mg PO DAILY 10/30/15 01/08/19 bisoprolol fumarate 2.5 mg PO DAILY 12/05/17 01/08/19 rosuvastatin [Crestor] 20 mg PO DAILY 12/05/17 01/08/19 allopurinol 200 mg PO DAILY 02/07/18 01/08/19 tamsulosin 0.4 mg capsule 0.4 mg PO DAILY #90 cap 08/23/18 01/08/19 albuterol sulfate 90 mcg/actuation 1 puff IH Q6H PRN 10/08/18 01/08/19 aerosol inhaler mometasone-formoterol HFA 100 2 puff IH BID 10/08/18 01/08/19 mcg-5 mcg/actuation aerosol inhaler selenium 200 mcg tablet 200 mcg PO DAILY tab 10/08/18 01/08/19 hydralazine 10 mg tablet 20 mg PO TID #180 tab 12/11/18 01/08/19 furosemide 20 mg tablet 20 mg PO DAILY #30 tab 01/03/19 01/08/19 Previous Rx's Medication Instructions Recorded tamsulosin 0.4 mg capsule 0.4 mg PO DAILY #90 cap 08/23/18 hydralazine 10 mg tablet 20 mg PO TID #180 tab 12/11/18 furosemide 20 mg tablet 20 mg PO DAILY #30 tab 01/03/19 Allergies Allergy/AdvReac Type Severity Reaction Status Date / Time fentanyl AdvReac vomiting Verified 01/08/19 11:36 General Stated Complaint: Chest Pain KEEGAN: 2 Review of Systems Constitutional Reports as per HPI, Denies chills, Denies fever(s), Denies headache(s), Denies lethargy and Denies poor appetite Eyes Denies change in vision ENT Denies dizziness and Denies headache(s) Cardiovascular Reports as per HPI, Reports chest pain (intermittent, has had 2 episodes), Reports chest pain at rest (was seated both times this has occured), Denies chest pain with activity, Denies diaphoresis, Denies syncope, Denies rapid heart rate, Reports pedal edema, Denies irregular heart rhythm, Denies claudication, Denies lightheadedness, Denies radiating jaw, neck or arm pain, Denies palpitations, Denies dyspnea and Denies dyspnea on exertion Respiratory Reports as per HPI, Denies chest congestion, Denies cough, Denies pain on inspiration, Denies pain with cough, Denies dyspnea, Denies dyspnea on exertion and Denies wheezing Gastrointestinal Reports as per HPI, Denies abdominal pain, Denies diarrhea, Denies nausea and Denies vomiting Genitourinary Denies system reviewed and no additional complaints, except as docu (denies change in urinary habits) Musculoskeletal Reports as per HPI and Denies back pain Integumentary/Breasts Reports as per HPI and Denies rash Neurologic Reports as per HPI, Denies dizziness, Denies syncope and Denies headache(s) Endocrine Denies palpitations Allergic/Immunologic Denies wheezing [facility] Surgical History Colonoscopy - MAC (06/03/16) Social History Smoking/Tobacco Use Status: Former Tobacco Use Alcohol Intake: never Drug use: Never Substance use type: does not use Do you feel safe at home: Yes Do you feel safe in your relationship?: Yes Exam Const General: cooperative, healthy appearing, comfortable, no acute distress and well developed Nutritional Appearance: average body habitus and well nourished Orientation: alert, awake and oriented x3 HENMT Head: normal to inspection Ears: hearing grossly normal bilaterally Mouth: moist mucous membranes Chest Chest: normal inspection of the chest, normal palpation of entire chest wall and no crepitus Resp Effort & Inspection: normal respiratory effort, able to speak in complete sentences and no respiratory distress Auscultation: clear to auscultation bilaterally, no rales, no rhonchi and no wheezes Cardio Rate: regular rate Rhythm: regular rhythm Heart Sounds: S1 normal and S2 normal GI Inspection: normal to inspection, no edema and non-distended Palpation: soft, no hepatosplenomegaly, not firm, no guarding, not rigid and nontender Auscultation: normal bowel sounds Back/Spine/Pelvis Back: no CVA tenderness Thoracic/Lumbar Spine: thoracic and lumbar spine normal to inspection Skin General skin exam: no rashes or lesions noted Trauma: no lacerations or abrasions Neuro General: alert, awake and oriented x3 Cognition: normal cognition Speech: speech normal Gait: normal gait Extrem General: normal to inspection, normal capillary refill, no calf tenderness, normal gait and edema Laterality: bilateral Psych Appearance: grossly normal and well kempt Mental Status: mental status grossly normal Speech and Movement: speech and movement normal Course Vital Signs Temperature 37.3 C 01/08/19 11:16 Pulse 86 01/08/19 11:16 Respiratory Rate 22 01/08/19 11:16 Blood Pressure 176/100 H 01/08/19 11:16 Pulse Oximetry 95 01/08/19 11:16 Temperature 37.3 C 01/08/19 11:16 Temperature Source Temporal Artery Scan 01/08/19 11:16 Pulse 86 01/08/19 11:16 Respiratory Rate 22 01/08/19 11:16 Blood Pressure 176/100 H 01/08/19 11:16 Blood Pressure Position Supine 01/08/19 11:16 Pulse Oximetry 95 01/08/19 11:16 Oxygen Delivery Method Room Air 01/08/19 11:16 Oxygen Flow Rate 0 01/08/19 11:16 Pain Level 0 01/08/19 11:16
[2019-01-08] MEDS: Aspirin 81 MG CHEW 243 MG CH (11:27)
[2019-01-08 11:38] LABS: Abs Immature Grans 0.01 k/cumm (0.0-0.09); Absolute Basophil Count 0.02 k/cumm (0.0-0.2); Absolute Eosinophil Count 0.16 k/cumm (0.0-0.7); Absolute Lymphocyte Count 0.66 k/cumm (1.2-3.4); Absolute Monocyte Count 0.34 k/cumm (0.11-0.7); Absolute Neutrophil Count 2.73 k/cumm (1.2-6.7); Basophils % 0.5; Eosinophils % 4.1; HCT 44.5 % (40.0-50.0); HGB 13.9 g/dL (13.5-17.5); Immature Grans % 0.3; Lymphocytes % 16.8; Mean Corp. HGB Concentration 31.2 g/dL (32.0-36.0); Mean Corpuscular Hemoglobin 27.4 pg (27.0-33.0); Mean Corpuscular Volume 87.6 fL (80-95); Monocytes % 8.7; Neutrophils % 69.6; Platelet Count 117 x1000/uL (130-400); RBC 5.08 m/cumm (4.50-6.00); RBC Distribution Width 17.2 % (11.8-14.1); White Blood Cell Count 3.92 k/cumm (4.4-10.8)
[2019-01-08 11:59] LABS: PTT Activated 24.1 sec (21.0-31.4); Prothrombin Time 10.2 sec (9.3-11.0)
[2019-01-08 12:08] LABS: ALT 23 U/L (12-78); AST 14 U/L (15-37); Albumin 3.9 g/dL (3.4-5.0); Alkaline Phosphatase 75 U/L (46-116); Anion Gap 8.9 mmol/L (3-11); BUN 20 mg/dL (7-18); Bilirubin, Total 0.6 mg/dL (0.2-1.0); CO2 26.1 mmol/L (21.0-32.0); Calcium 9.8 mg/dL (8.5-10.1); Chloride 109 mmol/L (98-107); Estimated GFR 58.56 (mL/min/1.73m2); Glucose 119 mg/dL (70-100); Magnesium 1.9 mg/dL (1.8-2.4); NT-proBNP 952 pg/mL; Potassium 4.5 mmol/L (3.5-5.1); Sodium 144 mmol/L (136-145)
[2019-01-08 12:17] LABS: Troponin I < 0.05 ng/mL (0.00-0.06)
[2019-01-08 15:49] LABS: Troponin I 0.05 ng/mL (0.00-0.06)
--- NOTE | 2019-02-12 11:56 | CER_ITS ---
[employer] MONITOR DEVICE INTERPRETATION DATE OF DICTATION February 11, [address] January 09- February 07, 2019 Baseline rhythm sinus. No atrial fibrillation. Less than 1% ventricular ectopy. No significant bradycardia. EVENTS: 11 stable events, no critical or serious events. Automatically detected events include sinus rhythm with first-degree AV block plus/minus PACs, PVCs. 4 runs NSVT identified. Longest 6 beat duration. VT events all occurred during daytime hours. 4 manually detected events during sinus rhythm plus/minus first degree AV block, PAC. SYMPTOMS Rapid heart rate noted once during sinus rhythm with PACs, 54 BPM. Cristobal Marie M.D. DARWIN/brian T - 02/12/2019
== END 2019-01-08 16:52 | disposition home or self-care (01) ==
PROVIDERS: Emergency Provider Physician Assistant; PCP Family Medicine
DX: I47.1 Supraventricular tachycardia (principal); I10 Essential (primary) hypertension; Z95.1 Presence of aortocoronary bypass graft
CPT/HCPCS: 36415; 80053; 93005; 93270; 99285; 71046; 83735; 83880; 84484; 85025; 85610; 85730; 93010

== ENCOUNTER 2019-01-14 08:40 | Outpatient (CLI) | payer MEDICARE, OTHER, SELFPAY | END 2019-01-14 09:00 | PROVIDERS: PCP Family Medicine; Visit Provider Internal Medicine Interventional Cardiology | DX: I25.10 Atherosclerotic heart disease of native coronary artery without angina pectoris (principal); I31.3 Pericardial effusion (noninflammatory); R06.09 Other forms of dyspnea; R05 Cough; I10 Essential (primary) hypertension | CPT/HCPCS: 99214 ==

== ENCOUNTER 2019-01-21 01:10 | Outpatient (CLI) | payer MEDICARE, OTHER, SELFPAY ==
[2019-01-21 16:18] LABS: Prothrombin Time 10.2 sec (9.3-11.0)
[2019-01-21 16:31] LABS: HCT 45.2 % (40.0-50.0); HGB 14.5 g/dL (13.5-17.5); Mean Corp. HGB Concentration 32.1 g/dL (32.0-36.0); Mean Corpuscular Hemoglobin 28.2 pg (27.0-33.0); Mean Corpuscular Volume 87.8 fL (80-95); Mean Platelet Volume 9.7 fL (8.0-11.0); Platelet Count 130 x1000/uL (130-400); RBC 5.15 m/cumm (4.50-6.00); RBC Distribution Width 15.1 % (11.8-14.1); White Blood Cell Count 4.41 k/cumm (4.4-10.8)
[2019-01-21 16:59] LABS: BUN 16 mg/dL (7-18); CREATININE 1.34 mg/dL (0.70-1.30); Estimated GFR 51.55 (mL/min/1.73m2)
== END 2019-01-21 01:30 ==
PROVIDERS: PCP Family Medicine; Visit Provider Internal Medicine
DX: R04.2 Hemoptysis (principal)
CPT/HCPCS: 36415; 84520; 85027; 82565; 85610; 87070; 87205

== ENCOUNTER 2019-01-21 16:07 | Outpatient (REF) | payer MEDICARE, OTHER, SELFPAY | END 2019-01-21 16:27 | LOC: LBN 16:07 | PROVIDERS: PCP Family Medicine; Visit Provider Internal Medicine | DX: R04.2 Hemoptysis (principal) | CPT/HCPCS: 87070; 87205 ==

== ENCOUNTER 2019-01-22 13:28 | Outpatient (RCR) | payer SELFPAY | END 2019-01-23 23:59 | disposition home or self-care (01) | LOC: CR 13:28 | PROVIDERS: PCP Family Medicine; Visit Provider Family Medicine | DX: Z95.1 Presence of aortocoronary bypass graft (principal); I25.10 Atherosclerotic heart disease of native coronary artery without angina pectoris; I10 Essential (primary) hypertension; Z51.89 Encounter for other specified aftercare ==

== ENCOUNTER 2019-02-11 17:51 | Outpatient (CLI) | payer MEDICARE, OTHER, SELFPAY | END 2019-02-11 18:11 | PROVIDERS: PCP Family Medicine; Referring Provider Family Medicine; Visit Provider Internal Medicine Interventional Cardiology | DX: I49.3 Ventricular premature depolarization (principal); I44.0 Atrioventricular block, first degree; I47.1 Supraventricular tachycardia | CPT/HCPCS: 93228 ==

== ENCOUNTER 2019-02-21 11:00 | Outpatient (RCR) | payer SELFPAY | END 2019-02-23 23:59 | disposition home or self-care (01) | LOC: CR 11:00 | PROVIDERS: PCP Family Medicine; Visit Provider Family Medicine | DX: Z95.1 Presence of aortocoronary bypass graft (principal); I25.10 Atherosclerotic heart disease of native coronary artery without angina pectoris; I10 Essential (primary) hypertension; Z51.89 Encounter for other specified aftercare ==

== ENCOUNTER 2019-03-13 13:31 | Outpatient (CLI) | payer MEDICARE, OTHER, SELFPAY ==
[2019-03-14 11:15] LABS: PSA, Screening 1.8 ng/ml (0-6.5)
== END 2019-03-13 13:51 ==
PROVIDERS: Nurse Practitioner Gerontology; PCP Family Medicine; Visit Provider Urology
DX: N40.0 Benign prostatic hyperplasia without lower urinary tract symptoms (principal); Z80.42 Family history of malignant neoplasm of prostate; Z12.5 Encounter for screening for malignant neoplasm of prostate
CPT/HCPCS: 36415; 51798; 84153; 99213

== ENCOUNTER 2019-03-21 11:58 | Outpatient (RCR) | payer SELFPAY | END 2019-03-25 23:59 | disposition home or self-care (01) | LOC: CR 11:58 | PROVIDERS: PCP Family Medicine; Visit Provider Family Medicine | DX: Z95.1 Presence of aortocoronary bypass graft (principal); I25.10 Atherosclerotic heart disease of native coronary artery without angina pectoris; I10 Essential (primary) hypertension; Z51.89 Encounter for other specified aftercare ==

== ENCOUNTER → 2019-04-01 09:22 | Outpatient (BNVA) | payer MEDICARE, OTHER, SELFPAY | PROVIDERS: PCP Family Medicine; Referring Provider Family Medicine; Visit Provider Internal Medicine Cardiovascular Disease | DX: I25.10 Atherosclerotic heart disease of native coronary artery without angina pectoris (principal); I51.7 Cardiomegaly; I77.810 Thoracic aortic ectasia; I10 Essential (primary) hypertension | CPT/HCPCS: 99205; 99215 ==

== ENCOUNTER 2019-04-06 13:26 | Outpatient (REF) | payer MEDICARE, OTHER, SELFPAY | END 2019-04-06 13:46 | LOC: LBN 13:26 | PROVIDERS: PCP Family Medicine; Visit Provider Internal Medicine | DX: J20.9 Acute bronchitis, unspecified (principal) | CPT/HCPCS: 87077; 87070; 87186; 87205 ==

== ENCOUNTER 2019-04-25 02:13 | Outpatient (CLI) | payer MEDICARE, OTHER, SELFPAY ==
[2019-04-25 14:29] LABS: Ferritin 92 ng/mL (8-388)
== END 2019-04-25 02:33 ==
PROVIDERS: PCP Family Medicine; Visit Provider Family Medicine
DX: D50.9 Iron deficiency anemia, unspecified (principal)
CPT/HCPCS: 36415; 82728

== ENCOUNTER 2019-04-25 12:01 | Outpatient (RCR) | payer SELFPAY | END 2019-04-25 23:59 | disposition home or self-care (01) | LOC: CR 12:01 | PROVIDERS: PCP Family Medicine; Visit Provider Family Medicine | DX: Z95.1 Presence of aortocoronary bypass graft (principal); I25.10 Atherosclerotic heart disease of native coronary artery without angina pectoris; I10 Essential (primary) hypertension; Z51.89 Encounter for other specified aftercare ==

== ENCOUNTER 2019-05-06 19:03 | Outpatient (REF) | payer MEDICARE, OTHER, SELFPAY | END 2019-05-06 19:23 | LOC: LBN 19:03 | PROVIDERS: PCP Family Medicine; Visit Provider Internal Medicine | DX: J20.9 Acute bronchitis, unspecified (principal) | CPT/HCPCS: 87070; 87205 ==

== ENCOUNTER 2019-05-21 15:16 | Outpatient (RCR) | payer SELFPAY | END 2019-05-25 23:59 | disposition home or self-care (01) | LOC: CR 15:16 | PROVIDERS: PCP Family Medicine; Visit Provider Family Medicine | DX: Z95.1 Presence of aortocoronary bypass graft (principal); I25.10 Atherosclerotic heart disease of native coronary artery without angina pectoris; I10 Essential (primary) hypertension; Z51.89 Encounter for other specified aftercare ==

== ENCOUNTER 2019-06-20 11:00 | Outpatient (RCR) | payer SELFPAY | END 2019-06-25 23:59 | disposition home or self-care (01) | LOC: CR 11:00 | PROVIDERS: PCP Family Medicine; Visit Provider Family Medicine | DX: Z95.1 Presence of aortocoronary bypass graft (principal); I25.10 Atherosclerotic heart disease of native coronary artery without angina pectoris; I10 Essential (primary) hypertension; Z51.89 Encounter for other specified aftercare ==

== ENCOUNTER → 2019-07-02 10:36 | Outpatient (BNVA) | payer MEDICARE, OTHER, SELFPAY | PROVIDERS: PCP Family Medicine; Referring Provider Family Medicine; Visit Provider Internal Medicine Cardiovascular Disease | DX: I77.810 Thoracic aortic ectasia (principal); I51.7 Cardiomegaly; I25.10 Atherosclerotic heart disease of native coronary artery without angina pectoris; I10 Essential (primary) hypertension; G47.30 Sleep apnea, unspecified; R60.0 Localized edema | CPT/HCPCS: 99214 ==

== ENCOUNTER 2019-07-15 01:13 | Outpatient (CLI) | payer MEDICARE, OTHER, SELFPAY ==
[2019-07-15 12:14] LABS: Anion Gap 9.4 mmol/L (3-11); BUN 21 mg/dL (7-18); CO2 27.6 mmol/L (21.0-32.0); CREATININE 1.46 mg/dL (0.70-1.30); Calcium 9.5 mg/dL (8.5-10.1); Chloride 107 mmol/L (98-107); Glucose 129 mg/dL (74-106); Potassium 4.5 mmol/L (3.5-5.1); Sodium 144 mmol/L (136-145)
== END 2019-07-15 01:33 ==
PROVIDERS: PCP Family Medicine; Visit Provider Internal Medicine Cardiovascular Disease
DX: I10 Essential (primary) hypertension (principal); I25.10 Atherosclerotic heart disease of native coronary artery without angina pectoris; I48.91 Unspecified atrial fibrillation; Z79.01 Long term (current) use of anticoagulants
CPT/HCPCS: 36415; 80048

== ENCOUNTER 2019-07-16 00:33 | Outpatient (CLI) | payer MEDICARE, OTHER, SELFPAY ==
--- NOTE | 2019-07-16 11:03 | DI.CT_ITS ---
EXAM: CT THORAX CTA CLINICAL HISTORY: dilated aortic root,i77.810,thoracic aortic ectasia TECHNIQUE: The exam was performed according to the usual protocol. COMPARISON: CHEST ABD PELVIS WITH CONTRAST from 12/05/2017 FINDINGS: CT angiography of the chest was performed with bolus infusion of 100 cc of Omnipaque 350. Images obt ained through the upper abdomen show probable hepatic steatosis and grossly unremarkable appearance o f the spleen. No mediastinal or hilar adenopathy. Tracheobronchial tree appears intact. No pleural effusion or pl eural-based mass. No pulmonary consolidation. Patient reportedly has a history of ectatic thoracic aorta. Ascending aorta measured at 4.5 to 4.6 c m in diameter on today's examination, this is unchanged from prior study of November 2017. Aortic arch d iameter is about 3.6 cm maximum. No evidence of dissection. Pulmonary arteries not ideally opacifie d but grossly unremarkable. 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 No additional significant findings
[2019-07-16] MEDS: Omnipaque 350 MG/ML 100 ML BTL IJ (11:22)
== END 2019-07-16 00:53 ==
PROVIDERS: PCP Family Medicine; Visit Provider Internal Medicine Cardiovascular Disease
DX: I77.810 Thoracic aortic ectasia (principal)
CPT/HCPCS: 71275; J3490

== ENCOUNTER 2019-07-25 11:00 | Outpatient (RCR) | payer SELFPAY | END 2019-07-26 23:59 | disposition home or self-care (01) | LOC: CR 11:00 | PROVIDERS: PCP Family Medicine; Visit Provider Family Medicine | DX: Z95.1 Presence of aortocoronary bypass graft (principal); I25.10 Atherosclerotic heart disease of native coronary artery without angina pectoris; I10 Essential (primary) hypertension; Z51.89 Encounter for other specified aftercare ==

== ENCOUNTER 2019-08-08 11:00 | Outpatient (RCR) | payer SELFPAY | END 2019-08-24 23:59 | disposition home or self-care (01) | LOC: CR 11:00 | PROVIDERS: PCP Family Medicine; Visit Provider Family Medicine | DX: Z95.1 Presence of aortocoronary bypass graft (principal); I25.10 Atherosclerotic heart disease of native coronary artery without angina pectoris; I10 Essential (primary) hypertension; Z51.89 Encounter for other specified aftercare ==

== ENCOUNTER 2019-08-14 23:26 | Outpatient (REF) | payer MEDICARE, OTHER, SELFPAY | END 2019-08-14 23:46 | LOC: NCHCN 23:26 | PROVIDERS: PCP Family Medicine; Visit Provider Family Medicine | DX: R05 Cough (principal) | CPT/HCPCS: 87077; 87070; 87205 ==

== ENCOUNTER 2019-08-22 13:35 | Outpatient (REF) | payer MEDICARE, OTHER, SELFPAY | END 2019-08-22 13:55 | LOC: NCHCN 13:35 | PROVIDERS: PCP Family Medicine; Visit Provider Family Medicine | DX: R05 Cough (principal) | CPT/HCPCS: 87070; 87205 ==

== ENCOUNTER 2019-08-22 14:21 | Outpatient (CLI) | payer MEDICARE, OTHER, SELFPAY ==
--- NOTE | 2019-08-22 13:45 | DI.RAD_ITS ---
EXAM: XR CHEST 2V PA AND LATERAL INDICATION: COUGH, R05, MORAXELLA CATARRHALIS. COMPARISON: XR CHEST 2V PA LATERAL from 01/08/2019 TECHNIQUE: 2D digital imaging was performed. FINDINGS: The heart size is normal. The patient is status post CABG. Mild scarring is noted at the heart apex . There has been interval clearing of previously noted infiltrates in the left lower lobe. No new a bnormalities are seen. Degenerative changes are again noted in the spine. IMPRESSION: Clearing of left lower lobe infiltrate. No acute abnormality. DATA REPOSITORY: RADIATION DOSE DELIVERED:
== END 2019-08-22 14:41 ==
PROVIDERS: PCP Family Medicine; Visit Provider Family Medicine
DX: R05 Cough (principal); R91.8 Other nonspecific abnormal finding of lung field; Z95.1 Presence of aortocoronary bypass graft
CPT/HCPCS: 71046

== ENCOUNTER 2019-08-25 03:40 | Outpatient (RCR) | payer SELFPAY | END 2019-09-24 23:59 | disposition home or self-care (01) | LOC: CR 03:40 | PROVIDERS: PCP Family Medicine; Visit Provider Family Medicine | DX: Z95.1 Presence of aortocoronary bypass graft (principal); I25.10 Atherosclerotic heart disease of native coronary artery without angina pectoris; I10 Essential (primary) hypertension; Z51.89 Encounter for other specified aftercare ==

== ENCOUNTER 2019-08-30 08:41 | Outpatient (CLI) | payer MEDICARE, OTHER, SELFPAY ==
[2019-08-30 09:54] LABS: HCT 45.1 % (40.0-50.0); HGB 15.2 g/dL (13.5-17.5); Mean Corp. HGB Concentration 33.7 g/dL (32.0-36.0); Mean Corpuscular Hemoglobin 31.4 pg (27.0-33.0); Mean Corpuscular Volume 93.2 fL (80-95); Platelet Count 117 x1000/uL (130-400); RBC 4.84 m/cumm (4.50-6.00); RBC Distribution Width 13.9 % (11.8-14.1); White Blood Cell Count 3.73 k/cumm (4.4-10.8)
[2019-08-30 10:39] LABS: COMMENT (LAB VIEW ONLY) 237.64 mg/dL; Microalb ug/mg Crea 38.1 ug/mg Cr
[2019-08-30 10:51] LABS: ALT 27 U/L (16-63); AST 16 U/L (15-37); Albumin 3.8 g/dL (3.4-5.0); Alkaline Phosphatase 73 U/L (46-116); Anion Gap 7.7 mmol/L (3-11); BUN 24 mg/dL (7-18); Bilirubin, Total 0.8 mg/dL (0.2-1.0); CO2 27.3 mmol/L (21.0-32.0); CREATININE 1.42 mg/dL (0.70-1.30); Calcium 9.3 mg/dL (8.5-10.1); Calculated LDL 44 mg/dL (<100); Chloride 109 mmol/L (98-107); Cholesterol 105 mg/dL (<200); Estimated GFR 48.09 (mL/min/1.73m2); Ferritin 126 ng/mL (26-388); Glucose 121 mg/dL (74-106); HDL Cholesterol 36 mg/dL (40-60); Potassium 4.3 mmol/L (3.5-5.1); Sodium 144 mmol/L (136-145); Total Protein 6.6 g/dL (6.4-8.2); Triglyceride 126 mg/dL (<150)
[2019-08-30 11:10] LABS: Hemoglobin A1C 6.2 % (3.8-5.6)
== END 2019-08-30 09:01 ==
PROVIDERS: PCP Family Medicine; Visit Provider Family Medicine
DX: D50.9 Iron deficiency anemia, unspecified (principal); I10 Essential (primary) hypertension; R73.03 Prediabetes; N18.3 Chronic kidney disease, stage 3 (moderate)
CPT/HCPCS: 36415; 80053; 80061; 85027; 82043; 82570; 82728; 83036

== ENCOUNTER 2019-10-03 23:07 | Outpatient (REF) | payer MEDICARE, OTHER, SELFPAY | END 2019-10-03 23:27 | LOC: NCHCN 23:07 | PROVIDERS: PCP Family Medicine; Visit Provider Internal Medicine | DX: R07.9 Chest pain, unspecified (principal) | CPT/HCPCS: 87070; 87205 ==

== ENCOUNTER → 2019-12-03 13:22 | Outpatient (BNVA) | payer MEDICARE, OTHER, SELFPAY | PROVIDERS: PCP Family Medicine; Referring Provider Family Medicine; Visit Provider Internal Medicine Cardiovascular Disease | DX: I25.10 Atherosclerotic heart disease of native coronary artery without angina pectoris (principal); I48.91 Unspecified atrial fibrillation; I10 Essential (primary) hypertension; I77.810 Thoracic aortic ectasia; I51.7 Cardiomegaly; G47.30 Sleep apnea, unspecified | CPT/HCPCS: 99214; 99443 ==

== ENCOUNTER 2019-12-06 01:53 | Outpatient (CLI) | payer MEDICARE, OTHER, SELFPAY ==
--- NOTE | 2019-12-30 09:37 | W.ZIOMONITOR ---
Date of service: 12/30/19 Time of Service: 09:37 ZIO Patch Auto Body Estimator Note: This is a 14-day ZIO patch report The predominant rhythm was sinus, average heart rate 61 bpm. There was first-degree AV block and an interventricular conduction delay. There were multiple runs of what was called supraventricular tachycardia, but what appears to be paroxysmal atrial fibrillation. The longest episode lasted 31 minutes and 58 seconds with an average heart rate of 131 bpm. These episodes corresponded to patient symptoms. There were rare ventricular ectopic beats. At least one episode labeled ventricular tachycardia appeared to be SVT with aberrancy. There were no pauses greater than 2 seconds. There was no significant bradycardia
== END 2019-12-06 02:13 ==
PROVIDERS: PCP Family Medicine; Visit Provider Internal Medicine Cardiovascular Disease
DX: I48.20 Chronic atrial fibrillation, unspecified (principal); I44.0 Atrioventricular block, first degree; I45.9 Conduction disorder, unspecified; I49.3 Ventricular premature depolarization; I47.1 Supraventricular tachycardia
CPT/HCPCS: 0296T

== ENCOUNTER 2019-12-12 23:25 | Outpatient (REF) | payer MEDICARE, OTHER, SELFPAY | END 2019-12-12 23:45 | LOC: LBN 23:25 | PROVIDERS: PCP Family Medicine; Visit Provider Internal Medicine | DX: J20.9 Acute bronchitis, unspecified (principal) | CPT/HCPCS: 87070; 87205 ==

== ENCOUNTER 2019-12-30 09:37 | Outpatient (CLI) | payer MEDICARE, OTHER, SELFPAY ==
--- NOTE | 2020-01-13 08:55 | W.ZIOMONITOR ---
Date of service: 01/13/20 Time of Service: 08:55 ZIO Patch White Kid Buffer Referring Provider:: D[place]en Indications:: Atrial fibrillation Note: There is a 2-week ZIO patch ordered for indication of atrial fibrillation. ?The patient was in normal sinus rhythm for the majority of the recording with an average heart rate of 61 bpm. ?The patient had 117 episodes of supraventricular tachycardia with the longest lasting 31 minutes (heart rate of 131). ?There were no episodes of clear atrial fibrillation, no pauses greater than 3 seconds no evidence of high degree heart block. ?There were 2 episodes of ventricular tachycardia with the longest lasting 10 beats. ?There were rare isolated supraventricular ectopic beats as well as ventricular ectopic beats. ?Patient triggered events were associated with SVT as well as sinus rhythm.
== END 2019-12-30 09:57 ==
PROVIDERS: PCP Family Medicine; Visit Provider Internal Medicine Cardiovascular Disease
DX: I48.20 Chronic atrial fibrillation, unspecified (principal); I44.0 Atrioventricular block, first degree; I45.9 Conduction disorder, unspecified; I49.3 Ventricular premature depolarization; I47.1 Supraventricular tachycardia
CPT/HCPCS: 0298T

== ENCOUNTER → 2020-01-13 14:17 | Outpatient (BNVA) | payer MEDICARE, OTHER, SELFPAY | PROVIDERS: PCP Family Medicine; Referring Provider Family Medicine; Visit Provider Internal Medicine Cardiovascular Disease | DX: I25.10 Atherosclerotic heart disease of native coronary artery without angina pectoris (principal); I51.7 Cardiomegaly; I48.0 Paroxysmal atrial fibrillation; Z95.1 Presence of aortocoronary bypass graft; I10 Essential (primary) hypertension | CPT/HCPCS: 99214 ==

== ENCOUNTER 2020-02-07 12:56 | Outpatient (REF) | payer MEDICARE, OTHER, SELFPAY ==
[2020-02-07 20:44] LABS: HCT 46.8 % (40.0-50.0); HGB 15.6 g/dL (13.5-17.5); MCH 31.3 pg (27.0-33.0); MCHC 33.3 % (32.0-36.0); MPV 10.3 fL (8.0-11.0); Platelet Count 115 10^3/uL (130-400); RBC 4.98 10^6/uL (4.36-5.78); RDW 13.4 % (11.8-14.1); RDW-SD 46.1 fL; WBC 4.14 10^3/uL (4.4-10.8)
[2020-02-07 21:15] LABS: ALT 35 U/L (16-63); AST 19 U/L (15-37); Alkaline Phosphatase 69 U/L (46-116); Anion Gap 8.9 mmol/L (3-11); BUN 27 mg/dL (7-18); Bilirubin, Total 0.7 mg/dL (0.2-1.0); CO2 25.1 mmol/L (21.0-32.0); CREATININE 1.58 mg/dL (0.70-1.30); Calcium 9.7 mg/dL (8.5-10.1); Chloride 108 mmol/L (98-107); Estimated GFR 42.52 (mL/min/1.73m2); Ferritin 91 ng/mL (26-388); Glucose 133 mg/dL (74-106); Magnesium 1.8 mg/dL (1.8-2.4); Potassium 4.3 mmol/L (3.5-5.1); Sodium 142 mmol/L (136-145); Total Protein 6.7 g/dL (6.4-8.2)
[2020-02-07 21:31] LABS: Uric Acid 6.9 mg/dL (3.5-7.2)
== END 2020-02-07 13:16 ==
LOC: NCHCN 12:56
PROVIDERS: PCP Family Medicine; Visit Provider Family Medicine
DX: I10 Essential (primary) hypertension (principal); R25.2 Cramp and spasm; Z86.2 Personal history of diseases of the blood and blood-forming organs and certain disorders involving the immune mechanism; M10.9 Gout, unspecified
CPT/HCPCS: 80053; 85027; 82728; 83735; 84550

== ENCOUNTER → 2020-02-17 13:36 | Outpatient (BNVA) | payer MEDICARE, OTHER, SELFPAY | PROVIDERS: PCP Family Medicine; Referring Provider Family Medicine; Visit Provider Internal Medicine Cardiovascular Disease | DX: I25.10 Atherosclerotic heart disease of native coronary artery without angina pectoris (principal); I48.0 Paroxysmal atrial fibrillation; I10 Essential (primary) hypertension; I77.810 Thoracic aortic ectasia | CPT/HCPCS: 99214 ==

== ENCOUNTER → 2020-07-23 12:53 | Outpatient (BNVA) | payer MEDICARE, OTHER, SELFPAY | PROVIDERS: PCP Family Medicine; Referring Provider Family Medicine; Visit Provider Internal Medicine Cardiovascular Disease | DX: I25.10 Atherosclerotic heart disease of native coronary artery without angina pectoris (principal); I48.0 Paroxysmal atrial fibrillation; I10 Essential (primary) hypertension; I77.810 Thoracic aortic ectasia; I51.7 Cardiomegaly; G47.30 Sleep apnea, unspecified; R60.0 Localized edema | CPT/HCPCS: 99214 ==

== ENCOUNTER 2020-07-27 15:21 | Outpatient (REF) | payer MEDICARE, OTHER, SELFPAY ==
[2020-07-27 19:44] LABS: Abs Immature Grans 0.03 10^3/uL (0.0-0.06); Absolute Basophil Count 0.05 10^3/uL (0.0-0.2); Absolute Eosinophil Count 0.14 10^3/uL (0.0-0.7); Absolute Lymphocyte Count 0.95 10^3/uL (1.2-3.4); Absolute Monocyte Count 0.39 10^3/uL (0.1-0.8); Absolute Neutrophil Count 3.17 10^3/uL (1.2-6.7); Basophils % 1.1; HCT 50.6 % (40.0-50.0); HGB 16.4 g/dL (13.5-17.5); Immature Grans % 0.6; Lymphocytes % 20.1; MCH 30.3 pg (27.0-33.0); MCHC 32.4 % (32.0-36.0); MCV 93.5 fL (80-95); MPV 10.1 fL (8.0-11.0); Monocytes % 8.2; Nucleated RBC 0 %; Platelet Count 121 10^3/uL (130-400); RBC 5.41 10^6/uL (4.36-5.78); RDW 13.1 % (11.8-14.1); RDW-SD 44.7 fL; WBC 4.73 10^3/uL (4.4-10.8)
[2020-07-27 20:03] LABS: Hemoglobin A1C 6.2 % (<5.7)
[2020-07-27 20:06] LABS: ALT 28 U/L (16-63); AST 19 U/L (15-37); Albumin 3.9 g/dL (3.4-5.0); Alkaline Phosphatase 76 U/L (46-116); Anion Gap 9.6 mmol/L (3-11); BUN 21 mg/dL (7-18); Bilirubin, Total 0.8 mg/dL (0.2-1.0); CO2 23.4 mmol/L (21.0-32.0); CREATININE 1.5 mg/dL (0.70-1.30); Calcium 9.5 mg/dL (8.5-10.1); Calculated LDL 23 mg/dL (<100); Chloride 109 mmol/L (98-107); Cholesterol 88 mg/dL (<200); Estimated GFR 45.14 (mL/min/1.73m2); Glucose 157 mg/dL (74-106); HDL Cholesterol 34 mg/dL (40-60); Potassium 4.6 mmol/L (3.5-5.1); Sodium 142 mmol/L (136-145); Triglyceride 157 mg/dL (<150)
[2020-07-27 20:21] LABS: Total Protein 6.8 g/dL (6.4-8.2); Uric Acid 6.4 mg/dL (3.5-7.2)
== END 2020-07-27 15:41 ==
LOC: NCHCN 15:21
PROVIDERS: PCP Family Medicine; Visit Provider Family Medicine
DX: Z86.2 Personal history of diseases of the blood and blood-forming organs and certain disorders involving the immune mechanism (principal); R73.03 Prediabetes; I10 Essential (primary) hypertension; E78.5 Hyperlipidemia, unspecified
CPT/HCPCS: 80053; 80061; 83036; 84550; 85025

== ENCOUNTER 2020-10-21 16:48 | Outpatient (REF) | payer MEDICARE, OTHER, SELFPAY | END 2020-10-21 16:49 | disposition home or self-care (01) | LOC: NCHCN 16:48 | PROVIDERS: PCP Family Medicine; Visit Provider Family Medicine | DX: R05 Cough (principal); R09.3 Abnormal sputum | CPT/HCPCS: 87070; 87205 ==

== ENCOUNTER → 2020-12-14 15:06 | Outpatient (BNVA) | payer MEDICARE, OTHER, SELFPAY | PROVIDERS: PCP Family Medicine; Referring Provider Family Medicine; Visit Provider Student in an Organized Health Care Education/Training Program | DX: M17.11 Unilateral primary osteoarthritis, right knee (principal) | CPT/HCPCS: 20610; 99213; J1040 ==

== ENCOUNTER → 2021-01-15 09:56 | Outpatient (BNVA) | payer MEDICARE, OTHER, SELFPAY | PROVIDERS: PCP Family Medicine; Referring Provider Family Medicine; Visit Provider Internal Medicine Cardiovascular Disease | DX: I25.10 Atherosclerotic heart disease of native coronary artery without angina pectoris (principal); I48.91 Unspecified atrial fibrillation; I10 Essential (primary) hypertension | CPT/HCPCS: 99214; 99213 ==

== ENCOUNTER 2021-01-25 15:42 | Outpatient (REF) | payer MEDICARE, OTHER, SELFPAY ==
[2021-01-25 20:11] LABS: Anion Gap 12.4 mmol/L (3-11); BUN 19 mg/dL (7-18); CO2 22.6 mmol/L (21.0-32.0); CREATININE 1.3 mg/dL (0.70-1.30); Calcium 9.5 mg/dL (8.5-10.1); Chloride 109 mmol/L (98-107); Estimated GFR 53.12 (mL/min/1.73m2); Glucose 149 mg/dL (74-106); Potassium 4.1 mmol/L (3.5-5.1); Sodium 144 mmol/L (136-145)
[2021-01-25 20:14] LABS: Hemoglobin A1C 6.2 % (<5.7)
== END 2021-01-25 15:43 | disposition home or self-care (01) ==
LOC: LBN 15:42
PROVIDERS: PCP Family Medicine; Visit Provider Family Medicine
DX: R73.03 Prediabetes (principal); I10 Essential (primary) hypertension; N18.30 Chronic kidney disease, stage 3 unspecified
CPT/HCPCS: 80048; 83036

== ENCOUNTER 2021-02-04 02:57 | Outpatient (CLI) | payer MEDICARE, OTHER, SELFPAY ==
--- NOTE | 2021-02-04 06:30 | DI.US_ITS ---
APPROVED REPORT EXAM: Comprehensive 2D, Doppler, and color-flow Echocardiogram Patient Location: Out-Patient Parts Facilitator: Annmarie Echavarria RDCS (AE) Indications: LVH, CAD Other Information Study Quality: Fair. Technically limited study due to body habitus. Conclusion Left Ventricle : The left ventricle is normal size. The left ventricular ejection fraction is within the normal range. Moderate to severe concentric left ventricular hypertrophy. There is normal LV segm ental wall motion. LVEF is 55%. Right Ventricle : The right ventricle is normal size. The right ventricular systolic function is norm al. The RVSP is 19.9 mmHg. Atria : The left atrium size is normal. The right atrium size is normal. Aortic Valve : Aortic valve is calcified. Aortic valve is probably trileaflet. Aortic valve is thicke ca but has adequate excursion. No hemodynamically significant valvular aortic stenosis. Trace aortic regurgitation. Great Vessels : The aortic root is normal in size. 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 A ortic arch is not well visualized. IVC is normal in size and collapses >50% with inspiration. Compared to study from 10/02/2018, the ascending aorta has increased in size from 4.5 to 4.6 cm. There are no other significant changes. Wall motion Left Ventricle The left ventricle is normal size. The left ventricular ejection fraction is within the normal range. Moderate to severe concentric left ventricular hypertrophy. There is normal LV segmental wall motion . There is no ventricular septal defect visualized. LVEF is 55%. Right Ventricle The right ventricle is normal size. The right ventricular systolic function is normal. The RVSP is 19 .9 mmHg. Atria The left atrium size is normal. The right atrium size is normal. The interatrial septum is intact wit h no evidence for an atrial septal defect. Aortic Valve Aortic valve is calcified. Aortic valve is probably trileaflet. Aortic valve is thickened but has emilee quate excursion. No hemodynamically significant valvular aortic stenosis. Trace aortic regurgitation. Mitral Valve Mild mitral annular calcification. No evidence of mitral valve stenosis. Trace mitral regurgitation. Tricuspid Valve The tricuspid valve is normal in structure. There is no tricuspid valve stenosis. Trace tricuspid reg urgitation. Pulmonic Valve The pulmonary valve is normal in structure. There is no pulmonic valvular stenosis. Trace pulmonic re gurgitation. Great Vessels The aortic root is normal in size. 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 Aortic arch is no t well visualized. IVC is normal in size and collapses >50% with inspiration. 2D Dimensions IVSD d PLAX 1.42 cm M: 0.6-1.2 LV Vol A2C d MOD 166.4 mL LVPW d PLAX 1.42 cm M: 0.6 - 1.2 LV Vol A4C d MOD 108.6 mL LVID d PLAX 4.47 cm M: 4.2 - 5.8 LA vol/ BSA A2C s A-L 25.7 mL/m2 LVDs 3.45 cm M: 2.5 - 4.0 LA vol/ BSA A4C s A-L 39.4 mL/m2 Ao Root d 3.69 cm M: 3.1 - 3.7 LA Vol/ BSA Biplane s A-L 32.2 mL/m2 RA Area A4C 17.46 cm2 LA Area A4C s MOD 25.42 cm2 RA Vol/ BSA A4C s A-L 19.8 mL/m2 LA Area A2C s MOD 20.33 cm2 Ao Asc Diam d 4.67 cm M: 2.6 - 3.4 LV EF A4C MOD 59.1 % LV EF Teichholz 45.8 % LV EF A2C MOD 55.1 % LVEF (Reilly's) 54.79 % M: 52 - 72 LV EF Biplane MOD 54.8 % LV Volume 96.55 mL M: 62 - 150 SV 74.15 mL LV Volume Index 41.26 mL/m2 M: 34 - 74 SV Index 31.66 mL/m2 LV Vol Biplane MOD 135.3 mL FS 22.70 % M-Mode TAPSE 0.97 cm (M/F) >1.7 LV Diastology MV E' medial 0.060 (>0.07 m/s) MV E Vmax 0.83 (0.4-1.3 m/s) LV E/e MED 13.85 (<14) MV E' lateral 0.082 (>0.1 m/s) LV E/e LAT 10.05 (<14) MV E/E' medial 13.85 MV E/E' lateral 10.06 Aortic Valve LVOT Area 4.32 cm2 AoV Area Vmax 2.29 cm2 LVOT Vmax 1.06 m/s AoV Area/ BSA (Vmax) 0.98 cm2/m2 LVOT Mean Juan Alberto. 0.73 m/s MICHAEL Mean Juan Alberto. 1.94 cm2 LVOT Peak Grad 4.5 mmHg MICHAEL Mean Juan Alberto. Index 0.83 cm2/m2 LVOT Mean Grad 2.4 mmHg LVOT VTI 0.194 m LVOT Diam s 2.30 cm AoV Vmax 2.00 m/s Velocity Ratio 0.53 AoV Mean Juan Alberto. 1.63 m/s AoV Peak Grad 16.1 mmHg LVOT SV 83.66 mL AoV Mean Grad 11.0 mmHg AoV VTI 0.378 m AoV Area VTI 2.22 cm2 AoV Area/ BSA (VTI) 0.95 cm/m2 Mitral Valve MV DT 314 (160-240 msec) MV PHT 91 msec MV Area PHT 2.41 cm2 MV VTI 0.190 m MV VTI Annulus 0.208 m MV Area VTI 4.86 (4.0-6.0 cm2) Pulmonary Valve PV Vmax 0.87 (0.5-1.5 m/s) RVOT Peak Gr. 1.48 mmHg PV Peak Grad 3.0 mmHg RVOT Mean Gr. 0.80 mmHg PV Mean Grad 1.9 mmHg RVOT VTI 0.109 m PV VTI 0.159 m RVOT Vmax 0.61 m/s Tricuspid Valve TR Peak Grad 16.8 mmHg TR Vmax 2.05 m/s RA Pressure 3.00 mmHg RVSP (TR) 19.9 mmHg
== END 2021-02-04 03:17 ==
PROVIDERS: PCP Family Medicine; Visit Provider Internal Medicine Cardiovascular Disease
DX: I25.10 Atherosclerotic heart disease of native coronary artery without angina pectoris (principal); I77.810 Thoracic aortic ectasia
CPT/HCPCS: 93306

== ENCOUNTER 2021-03-22 15:44 | Outpatient (REF) | payer MEDICARE, OTHER, SELFPAY ==
[2021-03-24 09:00] LABS: IgE 15 IU/mL (<158)
[2021-03-24 09:26] LABS: IgA 190 mg/dL (85-499); IgG 760 mg/dL (610-1,616); IgM 23 mg/dL (35-242)
== END 2021-03-22 15:45 | disposition home or self-care (01) ==
LOC: LBN 15:44
PROVIDERS: PCP Family Medicine; Visit Provider Student in an Organized Health Care Education/Training Program
DX: J18.9 Pneumonia, unspecified organism (principal)
CPT/HCPCS: 82784; 82785; 82787

== ENCOUNTER 2021-03-24 13:40 | Outpatient (REF) | payer MEDICARE, OTHER, SELFPAY | END 2021-03-24 13:41 | disposition home or self-care (01) | LOC: LBN 13:40 | PROVIDERS: PCP Family Medicine; Visit Provider Student in an Organized Health Care Education/Training Program | DX: J40 Bronchitis, not specified as acute or chronic (principal) | CPT/HCPCS: 87116; 87206 ==

== ENCOUNTER 2021-03-25 14:04 | Outpatient (REF) | payer MEDICARE, OTHER, SELFPAY | END 2021-03-25 14:05 | disposition home or self-care (01) | LOC: LBN 14:04 | PROVIDERS: PCP Family Medicine; Visit Provider Student in an Organized Health Care Education/Training Program | DX: J18.8 Other pneumonia, unspecified organism (principal) | CPT/HCPCS: 87116; 87206 ==

== ENCOUNTER 2021-03-26 13:21 | Outpatient (REF) | payer MEDICARE, SELFPAY | END 2021-03-26 13:22 | disposition home or self-care (01) | LOC: LBN 13:21 | PROVIDERS: PCP Family Medicine; Visit Provider Student in an Organized Health Care Education/Training Program | DX: J18.9 Pneumonia, unspecified organism (principal) | CPT/HCPCS: 87116; 87206; 87070; 87205 ==

== ENCOUNTER 2021-04-01 01:39 | Outpatient (CLI) | payer MEDICARE, OTHER, SELFPAY ==
--- NOTE | 2021-04-01 08:30 | DI.CT_ITS ---
Exam(s) CT CHEST HIGH RESOLUTION EXAM: CT CHEST HIGH RESOLUTION CLINICAL HISTORY: concern for bronchiectasis/ILD,RECURRENT PNEUMONIA, J18.9. TECHNIQUE: Imaging protocol: Axial computed tomography images were obtained and coronal and sagittal reformatted images were created and reviewed. COMPARISON: CT CHEST ABD PELVIS WITH CONTRAST from 12/05/2017 CT CHEST ABD PELVIS WITH CONTRAST from 12/05/[address] CHEST WO from 10/24/[address] THORAX CTA from 07/16/[address] THORAX CTA from 07/16/2019 FINDINGS: Tracheobronchial tree: Patent where visualized. Pulmonary parenchyma: There are scattered small opacities in the left lung base. These may represent areas of atelectasis. Pneumonia or pulmonary nodules cannot be entirely excluded. No architectural distortion. Mediastinum and Gauri: No dominant adenopathy or fluid collection. No evidence of bronchiectasis. Thyroid gland: Unremarkable. Pleura: No effusion or pneumothorax. Heart: The heart is not dilated. Coronary artery calcifications. No pericardial effusion. Aorta: Thoracic aorta non-dilated. Atherosclerosis. Upper abdomen: Fatty infiltration of the liver. Bilateral renal cysts. There is an incompletely im aged peripherally calcified mass in the left kidney. This lesion is unchanged in size compared to th e prior examination. Left renal ultrasound or MRI should be considered for re-evaluation. Lymph nodes: Within normal limits. Soft tissues: Unremarkable. Bones:Within normal limits for the patient's age. Sternal wires are in place. Marked degenerative c hanges are seen in the shoulders, right greater than left. IMPRESSION: 1. No evidence of bronchiectasis 2. Small opacities in the left lung base. Differential considerations include atelectasis, pneumonia or pulmonary nodules. A follow-up CT scan of the chest is recommended for re-evaluation. Incidental Findings RADIATION DOSE DELIVERED: 1,797.06mGy.cm Total DLP 1,797.06mGy.cm Total DLP DATA REPOSITORY: All CT scans at this facility are submitted to the National Radiology Data Registry (NRDR) Dose Index Registry (DIR) with the [employer] (A[employer]). RADIATION OPTIMIZATION: All CT scans at this facility use at least one of these dose optimization te chniques: automated exposure control; mA and/or kV adjustment per patient size (includes targeted exa ms where dose is matched to clinical indication); or iterative reconstruction.
== END 2021-04-01 01:59 ==
PROVIDERS: PCP Family Medicine; Visit Provider Student in an Organized Health Care Education/Training Program
DX: J18.9 Pneumonia, unspecified organism (principal); R91.8 Other nonspecific abnormal finding of lung field
CPT/HCPCS: 71250

== ENCOUNTER 2021-05-24 14:49 | Outpatient (REF) | payer MEDICARE, SELFPAY ==
[2021-05-24 21:39] LABS: Rheumatoid Factor <8.6 IU/mL (<12.0)
[2021-05-25 09:58] LABS: Cyclic Citrullinated Peptide <2.5 U/mL (<5.0)
[2021-05-25 11:56] LABS: ANA Interpretation Positive (Negative); ANA Titer Pattern 1:320 Homogeneous
[2021-05-25 12:51] LABS: dsDNA Ab, IgG 20.5 IU/mL (<30.0)
== END 2021-05-24 14:50 | disposition home or self-care (01) ==
LOC: LBN 14:49
PROVIDERS: PCP Family Medicine; Visit Provider Student in an Organized Health Care Education/Training Program
DX: J84.9 Interstitial pulmonary disease, unspecified (principal)
CPT/HCPCS: 86200; 86038; 86225; 86431

== ENCOUNTER 2021-05-31 02:36 | Outpatient (CLI) | payer MEDICARE, OTHER, SELFPAY ==
[2021-05-31] MEDS: Albuterol HFA 18 GM 200 PUFF INH IH (15:51)
[2021-05-31] MEDS: Inhaler, Assist Device 1 EACH MC (15:52)
--- NOTE | 2021-06-01 10:04 | W.PFT ---
Date of service: 05/31/21 Time of Service: 15:03 Pulmonary Function Test Result Requesting Provider Duchene Indications: ILD Interpretation Spirometry: There is no airflow limitation. No significant bronchodilator response. Lung Volumes: Lung volumes are normal Diffusion Capacity: Diffusion is normal Airway Pressure: Airways resistance is normal Impression Normal pulmonary function test Note: When compared to 08/17/18, the FEV1 has decreased, with FVC remaining unchanged. The diffusion has slightly decreased. There is no longer air trapping or hyperinflation present. Clinical Correlation therefore is recommended.
== END 2021-05-31 02:37 | disposition home or self-care (01) ==
LOC: RT 02:37
PROVIDERS: PCP Family Medicine; Visit Provider Student in an Organized Health Care Education/Training Program
DX: J84.9 Interstitial pulmonary disease, unspecified (principal); J47.9 Bronchiectasis, uncomplicated; Z87.891 Personal history of nicotine dependence
CPT/HCPCS: 94060; 94726; 94729

== ENCOUNTER → 2021-07-05 10:27 | Outpatient (BNVA) | payer MEDICARE, OTHER, SELFPAY | PROVIDERS: PCP Family Medicine; Referring Provider Family Medicine; Visit Provider Nurse Practitioner Gerontology | DX: N40.0 Benign prostatic hyperplasia without lower urinary tract symptoms (principal); Z80.42 Family history of malignant neoplasm of prostate; Z79.899 Other long term (current) drug therapy | CPT/HCPCS: 99214 ==

== ENCOUNTER → 2021-07-16 09:56 | Outpatient (BNVA) | payer MEDICARE, OTHER, SELFPAY | PROVIDERS: PCP Family Medicine; Visit Provider Internal Medicine Cardiovascular Disease | DX: I25.10 Atherosclerotic heart disease of native coronary artery without angina pectoris (principal); I10 Essential (primary) hypertension; I51.7 Cardiomegaly; I77.810 Thoracic aortic ectasia; J84.9 Interstitial pulmonary disease, unspecified | CPT/HCPCS: 99214 ==

== ENCOUNTER 2021-12-20 03:57 | Outpatient (CLI) | payer MEDICARE, OTHER, SELFPAY ==
[2021-12-20] MEDS: Albuterol HFA 18 GM 200 PUFF INH IH (14:06)
[2021-12-20] MEDS: Inhaler, Assist Device 1 EACH MC (14:07)
--- NOTE | 2021-12-21 10:02 | W.PFT ---
Date of service: 12/20/21 Time of Service: 13:13 Pulmonary Function Test Result Requesting Provider Duchene Indications: ILD Interpretation Spirometry: There is no airflow limitation. There is no significant bronchodilator effect. Lung Volumes: Normal lung volumes Diffusion Capacity: Normal diffusion. Airway Pressure: Normal airways resistance. Impression Normal pulmonary function testing. When compared to 12/01/21 the FVC and FEV1 are much improved lending to an erroneous prior spirometry. Clinical Correlation therefore is recommended.
== END 2021-12-20 03:58 | disposition home or self-care (01) ==
LOC: RT 03:58
PROVIDERS: PCP Family Medicine; Visit Provider Student in an Organized Health Care Education/Training Program
DX: J84.9 Interstitial pulmonary disease, unspecified (principal); R05.3 Chronic cough; Z87.891 Personal history of nicotine dependence
CPT/HCPCS: 94060; 94726; 94729

== ENCOUNTER 2022-01-14 08:33 | Outpatient (CLI) | payer MEDICARE, OTHER, SELFPAY ==
--- NOTE | 2022-01-14 08:30 | RT.EKG_ITS ---
APPROVED REPORT Exam: Resting ECG Reason for Exam: CAD, afib Patient Location: O HR:50 bpm ECG Measurements Heart Rate 50 AXIS [place] [id number] P [id number] QRSd 174 QRS 100 QT 504 T -40 QTc 460 Conclusion Atrial fibrillation...V-rate 46- 54, irreg A-activity Right bundle branch block...QRSd>120, terminal axis(90,270) LPFB
== END 2022-01-14 08:34 | disposition home or self-care (01) ==
LOC: DI.CARD 08:34
PROVIDERS: PCP Family Medicine; Visit Provider Internal Medicine Cardiovascular Disease
DX: I25.10 Atherosclerotic heart disease of native coronary artery without angina pectoris (principal); I48.91 Unspecified atrial fibrillation; R94.31 Abnormal electrocardiogram [ECG] [EKG]; I45.10 Unspecified right bundle-branch block
CPT/HCPCS: 93010

== ENCOUNTER → 2022-01-14 09:50 | Outpatient (BNVA) | payer MEDICARE, OTHER, SELFPAY | PROVIDERS: PCP Family Medicine; Visit Provider Internal Medicine Cardiovascular Disease | DX: I25.10 Atherosclerotic heart disease of native coronary artery without angina pectoris (principal); I48.91 Unspecified atrial fibrillation; I10 Essential (primary) hypertension; I51.7 Cardiomegaly; I77.810 Thoracic aortic ectasia; J84.9 Interstitial pulmonary disease, unspecified; J47.9 Bronchiectasis, uncomplicated | CPT/HCPCS: 93005; 99214; 99215 ==

== ENCOUNTER 2022-02-25 08:18 | Outpatient (REF) | payer MEDICARE, OTHER, SELFPAY ==
[2022-02-25 16:57] LABS: HGB 16.5 g/dL (13.5-17.5); MCV 94 fL (80-95); MPV 10.3 fL (8.0-11.0); Platelet Count 106 10^3/uL (130-400); RBC 5.33 10^6/uL (4.36-5.78); RDW 13.3 % (11.8-14.1); RDW-SD 45.7 fL
[2022-02-25 16:58] LABS: Anion Gap 9.3 mmol/L (3-11); BUN 26 mg/dL (7-18); CO2 27.7 mmol/L (21.0-32.0); CREATININE 1.6 mg/dL (0.70-1.30); Calcium 9.3 mg/dL (8.5-10.1); Chloride 106 mmol/L (98-107); Estimated GFR 43.02 (mL/min/1.73m2); Glucose 129 mg/dL (74-106); Potassium 4.3 mmol/L (3.5-5.1); Sodium 143 mmol/L (136-145)
[2022-02-25 17:41] LABS: Hemoglobin A1C 6.1 % (<5.7)
== END 2022-02-25 08:19 | disposition home or self-care (01) ==
LOC: NCHCN 08:18
PROVIDERS: PCP Family Medicine; Visit Provider Family Medicine
DX: I10 Essential (primary) hypertension (principal); R73.03 Prediabetes; N18.30 Chronic kidney disease, stage 3 unspecified
CPT/HCPCS: 80048; 85027; 83036

== ENCOUNTER → 2022-07-04 10:22 | Outpatient (BNVA) | payer MEDICARE, OTHER, SELFPAY | PROVIDERS: PCP Family Medicine; Visit Provider Nurse Practitioner Gerontology | DX: N40.1 Benign prostatic hyperplasia with lower urinary tract symptoms (principal); R39.89 Other symptoms and signs involving the genitourinary system | CPT/HCPCS: 36415; 51798; 81003; 99213 ==

== ENCOUNTER 2022-07-04 14:47 | Outpatient (REF) | payer MEDICARE, OTHER, SELFPAY ==
[2022-07-04 23:01] LABS: PSA, Screening 2.4 ng/mL (<=6.5)
== END 2022-07-04 14:48 | disposition home or self-care (01) ==
LOC: LBN 14:47
PROVIDERS: PCP Family Medicine; Visit Provider Nurse Practitioner Gerontology
DX: N40.0 Benign prostatic hyperplasia without lower urinary tract symptoms (principal); Z12.5 Encounter for screening for malignant neoplasm of prostate
CPT/HCPCS: 84153

== ENCOUNTER → 2022-09-08 09:52 | Outpatient (BNVA) | payer MEDICARE, OTHER, SELFPAY | PROVIDERS: PCP Family Medicine; Visit Provider Internal Medicine Cardiovascular Disease | DX: I25.10 Atherosclerotic heart disease of native coronary artery without angina pectoris (principal); I48.91 Unspecified atrial fibrillation; I77.810 Thoracic aortic ectasia; J47.9 Bronchiectasis, uncomplicated | CPT/HCPCS: 99214 ==

== ENCOUNTER 2022-09-19 11:59 | Outpatient (REF) | payer MEDICARE, OTHER, SELFPAY ==
[2022-09-19 15:23] LABS: HCT 49.1 % (40.0-50.0); HGB 15.7 g/dL (13.5-17.5); MCH 29.7 pg (27.0-33.0); MCV 93 fL (80-95); MPV 10.2 fL (8.0-11.0); Platelet Count 106 10^3/uL (130-400); RBC 5.29 10^6/uL (4.36-5.78); RDW-SD 47.4 fL; WBC 3.86 10^3/uL (4.4-10.8)
[2022-09-19 15:55] LABS: Hemoglobin A1C 6.4 % (<5.7)
[2022-09-19 17:45] LABS: Anion Gap 10.7 mmol/L (3-11); BUN 27 mg/dL (7-18); CO2 24.3 mmol/L (21.0-32.0); CREATININE 1.5 mg/dL (0.70-1.30); Calcium 9.9 mg/dL (8.5-10.1); Chloride 110 mmol/L (98-107); Estimated GFR 46.19 (mL/min/1.73m2); Glucose 135 mg/dL (74-106); Potassium 4.7 mmol/L (3.5-5.1); Sodium 145 mmol/L (136-145); Uric Acid 5.4 mg/dL (3.5-7.2)
== END 2022-09-19 12:00 | disposition home or self-care (01) ==
LOC: NCHCN 11:59
PROVIDERS: PCP Family Medicine; Visit Provider Family Medicine
DX: R73.03 Prediabetes (principal); N18.30 Chronic kidney disease, stage 3 unspecified; M10.9 Gout, unspecified
CPT/HCPCS: 80048; 85027; 83036; 84550

== ENCOUNTER 2022-10-13 17:44 | Outpatient (REF) | payer MEDICARE, OTHER, SELFPAY | END 2022-10-13 17:45 | disposition home or self-care (01) | LOC: NCHCN 17:44 | PROVIDERS: PCP Family Medicine; Visit Provider Family Medicine | DX: R04.2 Hemoptysis (principal) | CPT/HCPCS: 87077; 87070; 87186; 87205 ==

== ENCOUNTER 2022-12-30 02:37 | Outpatient (CLI) | payer MEDICARE, OTHER, SELFPAY ==
[2022-12-30] MEDS: Albuterol HFA 18 GM 200 PUFF INH IH (13:48)
[2022-12-30] MEDS: Inhaler, Assist Device 1 EACH MC (13:48)
--- NOTE | 2022-12-30 14:14 | W.PFT ---
Date of service: 12/30/22 Time of Service: 12:53 Pulmonary Function Test Result Indications: ILD Interpretation Spirometry: There is no airflow limitation. There is no significant bronchodilator response. Lung Volumes: Normal lung volumes Diffusion Capacity: Normal diffusion. Airway Pressure: Normal airways resistance Impression Normal pulmonary function testing Note: When compared to 12/20/21, lung function is stable Clinical Correlation therefore is recommended.
== END 2022-12-30 02:38 | disposition home or self-care (01) ==
LOC: RT 02:38
PROVIDERS: PCP Family Medicine; Visit Provider Physician Assistant Surgical
DX: J84.9 Interstitial pulmonary disease, unspecified (principal); J47.9 Bronchiectasis, uncomplicated
CPT/HCPCS: 94060; 94726; 94729

== ENCOUNTER → 2023-03-29 02:04 | Outpatient (CLI) | payer MEDICARE, OTHER, SELFPAY ==
--- NOTE | 2023-03-29 14:00 | DI.US_ITS ---
APPROVED REPORT EXAM: Comprehensive 2D, Doppler, and color-flow Echocardiogram Patient Location: Out-Patient Synchronous Motor Assembler: Annmarie Echavarria RDCS (AE) Indications: Aortic root dimension, Atrial fibrillation, CAD, Other Information Study Quality: Adequate Conclusion Severe concentric left ventricular hypertrophy. Ejection fraction is 45 to 50%. There are no segmen tawny wall motion abnormalities Normal right ventricular size and systolic function Both atria are moderately enlarged Aortic valve is sclerotic and probably trileaflet with mild regurgitation Mildly thickened mitral leaflets with moderate regurgitation Normal tricuspid valve with mild regurgitation. Estimated right ventricular systolic pressure is 43 mmHg Dilated ascending aorta measuring 4.5 cm Wall motion Left Ventricle The left ventricle is normal size. Left ventricular systolic function is mildly decreased Severe conc entric left ventricular hypertrophy. LV is stiff and globally hypocontractile There is no ventricular septal defect visualized. LVEF is 45-50 Right Ventricle The right ventricle is normal size. The right ventricular systolic function is normal. Atria Left atrium is moderately dilated. Right atrium is moderately dilated. The interatrial septum is inta ct with no evidence for an atrial septal defect. Aortic Valve Aortic valve is calcified. Aortic valve is probably trileaflet. No hemodynamically significant valvul ar aortic stenosis. Mild aortic regurgitation. Mitral Valve Mitral valve leaflets are mildly thickened. No evidence of mitral valve stenosis. Moderate mitral re gurgitation. Tricuspid Valve The tricuspid valve is normal in structure. There is no tricuspid valve stenosis. Mild tricuspid regu rgitation. Pulmonic Valve The pulmonary valve is normal in structure. There is no pulmonic valvular stenosis. There is no pulmo shai valvular regurgitation. Great Vessels Aortic root is mildly dilated. The ascending aorta is moderately dilated. Aortic arch is not well vis ualized. The IVC collapses <50% with inspiration. Pericardium There is no pericardial effusion. 2D Dimensions IVSD d PLAX 1.74 cm M: 0.6-1.2 Ao Root d 3.81 cm M: 3.1 - 3.7 LVPW d PLAX 1.66 cm M: 0.6 - 1.2 Ao Asc Diam d 4.50 cm M: 2.6 - 3.4 LVID d PLAX 4.33 cm M: 4.2 - 5.8 LVDs 3.52 cm M: 2.5 - 4.0 LV EF Teichholz 38.8 % FS 18.66 % LV EDV (Teich) 84.2 mL LV ESV (Teich) 51.5 mL M-Mode TAPSE 1.52 cm (M/F) >1.7 Auto EF LV EDV A4C 186.7 mL LV EDV A2C 276.5 mL LV EDV BP 227.3 mL LV ESV A4C 109.5 mL LV ESV A2C 164.1 mL LV ESV BP 132.1 mL LVEF(%) A4C 41.4 % LVEF(%) A2C 40.6 % LVEF(%) BP 41.9 % LV SV A4C 77.2 ml LV SV A2C 112.3 ml LV SV BP 95.2 ml LV CO A4C 3.8 L/min LV CO A2C 5.1 L/min LV CO BP 4.5 L/min HR A4C 49.45 BPM HR A2C 45.63 BPM LV EDV Index (BP) LV Volumes - Method of Disks (Reilly's) Single Plane 2D LV Volumes Biplane 2D LV Volumes LV EDV A4C 111.8 mL LV EDV BP LV ESV A4C 67.9 mL LV ESV BP LVEF(%) A4C 39.2 % LVEF(%) BP LA Volume LA Length A4C 5.8 cm LA Length A2C 6.1 cm LA Area A4C s 25.28 cm2 LA Area A2C s 29.27 cm2 LA Vol A4C A-L 92.76 mL LA Vol A2C A-L 119.17 mL LA Vol Biplane A-L 107.4 mL LA Vol/BSA A4C A-L LA Vol/BSA A2C A-L LA Vol/BSA BP A-L 43.1 mL/m2 LA Vol A4C MOD 83.3 mL LA Vol A2C MOD 108.7 mL LA Vol BP MOD 97.1 mL RA Volume RA Area A4C 23.2 cm2 RA ESV A4C (A-L) 76.9mL RA Vol/BSA A4C A-L RA Length A4C 5.9 cm RA ESV A4C (MOD) 72.6mL LV Diastology MV E' medial 0.043 (>0.07 m/s) MV E' lateral 0.074 (>0.1 m/s) Aortic Valve AoV Vmax 2.15 m/s LVOT Vmax 1.08 m/s AoV Peak Grad 18.4 mmHg LVOT Peak Grad 4.7 mmHg AoV Area (Vmax) 1.55 cm2 LVOT VTI 0.204 m AoV VTI 0.461 m LVOT Mean Grad 2.2 mmHg AoV Mean Juan Alberto. 1.62 m/s LVOT SV 62.97 mL AoV Mean Grad 11.7 mmHg LVOT Diam s 1.95 cm AoV Area (VTI) 1.37 cm2 Velocity Ratio 0.50 Mitral Valve MV Vmax TIPS 1.14 m/s MV Mean Grad 1.6 (<2mmHg) MV VTI 0.332 m Pulmonary Valve PV Vmax 0.83 (0.5-1.5 m/s) RVOT Vmax 0.66 m/s PV Peak Grad 2.8 mmHg RVOT Peak Gr. 1.7 mmHg PV Mean Juan Alberto 0.61 m/s RVOT VTI 0.126 m PV Mean Grad 1.7 mmHg RVOT Mean Gr. 0.8 mmHg Tricuspid Valve RA Pressure 3.00 mmHg TR Vmax 3.16 m/s TV S' 0.08 m/s TR Peak Grad 39.8 mmHg RVSP (TR) 42.9 mmHg
== END ==
PROVIDERS: PCP Family Medicine; Visit Provider Internal Medicine Cardiovascular Disease
DX: I25.10 Atherosclerotic heart disease of native coronary artery without angina pectoris (principal); I48.91 Unspecified atrial fibrillation; I77.810 Thoracic aortic ectasia
CPT/HCPCS: 93306

== ENCOUNTER 2023-04-11 19:55 | Outpatient (REF) | payer MEDICARE, OTHER, SELFPAY | END 2023-04-11 19:56 | disposition home or self-care (01) | LOC: LBN 19:55 | PROVIDERS: PCP Family Medicine; Visit Provider Student in an Organized Health Care Education/Training Program | DX: J47.9 Bronchiectasis, uncomplicated (principal) | CPT/HCPCS: 87070; 87205 ==

== ENCOUNTER → 2023-04-24 14:42 | Outpatient (BNVA) | payer MEDICARE, OTHER, SELFPAY | PROVIDERS: PCP Family Medicine; Referring Provider Family Medicine; Visit Provider Student in an Organized Health Care Education/Training Program | DX: M17.11 Unilateral primary osteoarthritis, right knee (principal) | CPT/HCPCS: 20610; J1040 ==

== ENCOUNTER → 2023-04-25 09:45 | Outpatient (BNVA) | payer MEDICARE, OTHER, SELFPAY | PROVIDERS: PCP Family Medicine; Visit Provider Internal Medicine Cardiovascular Disease | DX: I48.19 Other persistent atrial fibrillation (principal); I25.810 Atherosclerosis of coronary artery bypass graft(s) without angina pectoris; I77.810 Thoracic aortic ectasia; I10 Essential (primary) hypertension | CPT/HCPCS: 99214 ==

== ENCOUNTER → 2023-07-11 10:21 | Outpatient (BNVA) | payer MEDICARE, OTHER, SELFPAY | PROVIDERS: PCP Family Medicine; Referring Provider Family Medicine; Visit Provider Student in an Organized Health Care Education/Training Program | DX: J84.9 Interstitial pulmonary disease, unspecified (principal); J47.9 Bronchiectasis, uncomplicated; R05.3 Chronic cough; Z87.01 Personal history of pneumonia (recurrent) | CPT/HCPCS: 99214 ==

== ENCOUNTER → 2023-07-26 13:06 | Outpatient (BNVA) | payer MEDICARE, OTHER, SELFPAY | PROVIDERS: PCP Family Medicine; Visit Provider Nurse Practitioner Gerontology | DX: R39.89 Other symptoms and signs involving the genitourinary system (principal); N40.0 Benign prostatic hyperplasia without lower urinary tract symptoms | CPT/HCPCS: 51798; 99213 ==

== ENCOUNTER 2023-09-16 15:01 | Emergency (ER) | payer MEDICARE, OTHER, SELFPAY ==
[2023-09-16] VITALS (7 sets, daily range): BP systolic 131–177; BP diastolic 66–78; PULSE 57–85; RESP 14–16; TEMP 36.7; O2SAT 96–98
--- NOTE | 2023-09-16 15:45 | DI.RAD_ITS ---
Exam(s) XR TIB/FIB RT EXAM: XR TIB/FIB RT CLINICAL HISTORY: chronic wound infected, anterior mid. TECHNIQUE: 2D digital imaging was performed. Two views. COMPARISON: CR RIGHT KNEE 3 VIEWS from 03/22/2017 FINDINGS: BONES: No acute fracture is present. No bony destructive lesion is seen. Severe degenerative changes of the right knee, greater at the medial femoral tibial compartment. Chronic appearing bony densiti es beneath the malleoli. SOFT TISSUE: Vascular calcifications. No abnormal gas collection. Vascular clips medially at the le georgina of the knee. Soft tissue swelling. IMPRESSION: Soft tissue swelling. No acute bony abnormality. Advanced degenerative changes. DATA REPOSITORY: RADIATION DOSE DELIVERED:
[2023-09-16] MEDS: Cephalexin 500 MG CAP PO (16:21)
[2023-09-16] MEDS: levoFLOXacin 500 MG, levoFLOXacin 250 MG 750 MG PO (16:22)
--- NOTE | 2023-09-16 16:33 | DI.VRAD_ITS ---
PROCEDURE INFORMATION: Exam: XR Right Tibia and Fibula Exam date and time: 09/16/2023 4:03 PM Age: 83 years old Clinical indication: Other: Chronic wound infected, anterior mid TECHNIQUE: Imaging protocol: Radiologic exam of the right tibia and fibula. Views: 2 views. COMPARISON: CR RIGHT KNEE 3 VIEWS 03/22/2017 2:44 PM FINDINGS: Bones/joints: Tricompartmental joint space narrowing and osteophyte formation consistent with degenerative changes. Joint space narrowing more severe in the medial compartment. There is no evidence of acute fracture.There is no evidence of malalignment or dislocation. Degenerative changes in the medial and lateral malleolus. Degenerative changes in the tarsal bones. Well corticated ossific fragments adjacent to the distal fibula.. No definite osteolytic process Soft tissues: Soft tissue swelling of the ankle. IMPRESSION: 1. There is no evidence of acute fracture.There is no evidence of malalignment or dislocation. 2. Well corticated ossific fragments adjacent to the distal fibula consistent with old avulsion fractures.. 3 no definite osteolytic process Dictated and Authenticated by: Tan Hernandez MD. Ordering:BEULAH Hoffman MD
--- NOTE | 2023-09-16 16:42 | ED.GENADUL_ITS ---
Discharge Plan Disposition Patient Disposition: Home Condition: Stable Discharge Details Clinical Impression: Chronic wound, Cellulitis of right anterior lower leg, Wound infection Primary Care Provider: Devorah Epstein ED Provider: Dalton Ramos Home Meds and New Rx's Prescriptions: New levofloxacin 750 mg tablet 750 mg PO DAILY Qty: 7 0RF cephalexin 500 mg capsule 500 mg PO QID Qty: 39 0RF Continued aspirin 81 mg tablet,delayed release (DR/EC) 81 mg PO .QOD guaifenesin [Mucinex] 600 mg tablet extended release 12hr 1,200 mg PO BID cetirizine [Zyrtec] 10 mg tablet 10 mg PO DAILY PRN furosemide 20 mg tablet 20 mg PO Q OTHER DAY Patient Comments: opposite of 40 mg M,W, 09/07/22 RH this week taking 40 mg daily, has helped with swelling, 09/15 furosemide 20 mg tablet 40 mg PO Q OTHER DAY Patient Comments: alternated with 20 mg every other day. RH Dulera 50-5 mcg/actuation HFA aerosol inhaler 2 puff inhalation Q12H Qty: 13 12RF Patient Comments: hasn't taken r/t insurance issues cholecalciferol (vitamin D3) 1,000 UNIT tablet 1,000 unit PO DAILY tamsulosin [Flomax] 0.4 mg capsule 0.4 mg PO DAILY Qty: 90 3RF bisoprolol fumarate 5 mg tablet 5 mg PO DAILY Qty: 90 5RF losartan 100 mg tablet 100 mg PO DAILY Qty: 90 6RF omeprazole 20 MG capsule,delayed release(DR/EC) 20 mg PO DAILY selenium 200 mcg tablet 200 mcg PO DAILY rosuvastatin [Crestor] 20 MG tablet 20 mg PO DAILY allopurinol 100 MG tablet 200 mg PO DAILY No Action (DME) CPAP 0 .Route .MEDSUPPLY Qty: 1 omega 4-ixp-mkt-fish oil [Fish Oil] 60-90-500 mg capsule 1 cap PO DAILY Discharge Instructions Instructions: Wound Infection (ED), Cellulitis (ED) Additional Instructions: Please follow-up with the behavioral intervention specialist as soon as possible next week. Take full course of antibiotic as prescribed. Be sure to use probiotic while you are taking antibiotic. Please contact your primary care physician to arrange follow-up. Call on Monday. Return to the ER immediately for any worsening or new concerning symptoms. Referrals: Devorah Epstein MD [Primary Care Provider] - Discharge Data Discharge Date/Time-TO BE ENTERED AT DEPARTURE: 09/16/23 17:07 HPI General Mode of arrival: ambulatory . Date/Time Provider Initiated Documentation: 09/16/23 15:23 . Limitations to Documentation: no limitations . Information obtained by: patient and family . HPI Narrative: 83-year-old male presents with chief complaint of right leg infection. Patient notes chronic ulcer right anterior lower leg for the past few months. Wound has not been healing. He has intermittent redness around the wound. Redness worse with associated pain over the past couple weeks. Wound is now with foul- smelling discharge. He has had some increased leg swelling bilaterally and has increased his dose of Lasix over the past week and swelling has significantly improved. He has no associated fever. No shortness of breath or chest discomfort. Unsure of last tetanus shot. Related Data Home Medications Medication Instructions Recorded Confirmed cholecalciferol (vitamin D3) 25 1,000 unit PO DAILY 05/22/13 09/16/23 mcg (1,000 unit) tablet omeprazole 20 mg capsule,delayed 20 mg PO DAILY 10/30/15 09/16/23 release rosuvastatin 20 mg tablet (Crestor) 20 mg PO DAILY 12/05/17 09/16/23 allopurinol 100 mg tablet 200 mg PO DAILY 02/07/18 09/16/23 selenium 200 mcg tablet 200 mcg PO DAILY 10/08/18 09/16/23 CPAP #1 ea 03/19/21 07/11/23 tamsulosin 0.4 mg capsule (Flomax) 0.4 mg PO DAILY #90 caps 06/29/21 09/16/23 aspirin 81 mg tablet,delayed 81 mg PO .QOD 07/16/21 09/16/23 release bisoprolol fumarate 5 mg tablet 5 mg PO DAILY #90 tabs 08/19/21 09/16/23 losartan 100 mg tablet 100 mg PO DAILY #90 tabs 08/19/21 09/16/23 cetirizine 10 mg tablet (Zyrtec) 10 mg PO DAILY PRN 11/30/21 09/16/23 guaifenesin 600 mg tablet, 1,200 mg PO BID 11/30/21 09/16/23 extended release 12 hr (Mucinex) furosemide 20 mg tablet 20 mg PO Q OTHER DAY 09/08/22 09/16/23 omega 2-ovi-epv-fish oil 60 mg-90 1 cap PO DAILY 09/08/22 09/16/23 mg-500 mg capsule (Fish Oil) furosemide 20 mg tablet 40 mg PO Q OTHER DAY 04/25/23 09/16/23 mometasone-formoterol HFA 50 mcg-5 2 puff inhalation Q12H #13 grams 07/11/23 09/16/23 mcg/actuation aerosol inhaler (Dulera) cephalexin 500 mg capsule 500 mg PO QID #39 caps 09/16/23 levofloxacin 750 mg tablet 750 mg PO DAILY #7 tabs 09/16/23 Previous Rx's Medication Instructions Recorded tamsulosin 0.4 mg capsule (Flomax) 0.4 mg PO DAILY #90 caps 06/29/21 bisoprolol fumarate 5 mg tablet 5 mg PO DAILY #90 tabs 08/19/21 losartan 100 mg tablet 100 mg PO DAILY #90 tabs 08/19/21 mometasone-formoterol HFA 50 mcg-5 2 puff inhalation Q12H #13 grams 07/11/23 mcg/actuation aerosol inhaler (Dulera) cephalexin 500 mg capsule 500 mg PO QID #39 caps 09/16/23 levofloxacin 750 mg tablet 750 mg PO DAILY #7 tabs 09/16/23 Allergies Allergy/AdvReac Type Severity Reaction Status Date / Time fentanyl AdvReac vomiting Verified 09/16/23 15:24 General Stated Complaint: Cellulitis KEEGAN: 3 Review of Systems All systems reviewed & are unremarkable except as noted in HPI and below Constitutional Constitutional: Denies fever(s) Integumentary/Breasts Skin/Breast: Reports as per HPI Exam Const General: cooperative and no acute distress HENMO Mouth: moist mucous membranes Resp Auscultation: clear to auscultation bilaterally, no rales, no rhonchi and no wheezes Cardio Rate: regular rate and not tachycardic Rhythm: regular rhythm Skin Wounds: wounds noted (3cm circular ulcer with foul smelling gree/garcia discharge ) Neuro General: patient alert, patient awake and tone normal Extrem General: edema Laterality: bilateral (1+ to lower legs) Right lower extremity: lower leg Details: erythema (surrounding wound) and foot Details: normal capillary refill and vascular exam (2+ dp) Psych Appearance: grossly normal Mental Status: mental status grossly normal Course Vital Signs Vital signs: Vital Signs Temperature 36.7 C 09/16/23 15:10 Pulse 85 09/16/23 15:10 Respiratory Rate 16 09/16/23 15:10 Blood Pressure 177/66 H 09/16/23 15:10 Pulse Oximetry 97 09/16/23 15:10 Temperature 36.7 C 09/16/23 15:10 Temperature Source Temporal Artery Scan 09/16/23 15:10 Pulse 57 L 09/16/23 16:19 Respiratory Rate 16 09/16/23 15:15 Blood Pressure 142/71 H 09/16/23 16:19 Blood Pressure Mean 94 09/16/23 16:19 Blood Pressure Position Supine 09/16/23 15:15 Pulse Oximetry 97 09/16/23 16:20 Oxygen Delivery Method Room Air 09/16/23 15:15 Oxygen Flow Rate 0 09/16/23 15:10 Pain Level 5 09/16/23 15:15 Medical Decision Making 83-year-old male with chronic anterior right lower leg ulcer, now with foul- smelling discharge and surrounding erythema. Concern for wound infection. I am worried about Pseudomonas. Patient is afebrile with no systemic symptoms. Patient has history of prediabetes. Fingerstick today not significantly elevated. X-ray of the right tib-fib reviewed and interpreted by radiology: No definite osteolytic process, no acute fracture. Old avulsion fracture of the distal fibula noted. Concern for Pseudomonas versus polymicrobial. Plan to treat with Keflex and Levaquin. Patient provided informed consent to treat with antibiotics. Initial dose of antibiotics were provided here. Xeroform gauze dressing applied. Plan for outpatient follow-up with behavioral intervention specialist. Patient should be seen next week for reassessment. Tetanus immunization last known 2011 will provide booster today. Quality:SDOH Health Related Social Needs: No Data to Display PFSH All Active Problems Wound infection (Acute) Cellulitis of right anterior lower leg (Acute) Chronic wound (Acute) Sinusitis (Acute) Interstitial lung disease (Acute) Bronchiectasis (Acute) Recurrent pneumonia (Acute) Tracheobronchitis (Acute) Atrial fibrillation (Chronic) Hypertension (Chronic) Dilated aortic root (Acute) Left ventricular hypertrophy (Acute) Coronary artery disease (Chronic) Family history of prostate cancer in father (Acute) Tubular adenoma of colon (Acute 06/03/16) Primary osteoarthritis of right knee (Acute 04/26/17) injection: 12/14/2020; 04/24/23 Has had Synvisc injections previously by [facility] with minimal relief. Family history of cancer of digestive system (Acute) BPH (benign prostatic hyperplasia) (Chronic) Medical History Pericardial effusion Surgical History Colonoscopy - [facility] (06/03/16) Family History Mother Colon cancer Father Prostate cancer Social History Smoking/Tobacco Use Status: Former Tobacco Use Quit Date: 06/26/99 Pack-years: 30 Smoking risk assessment performed?: Yes Alcohol Intake: never Drug use: Never Substance use type: does not use Housing: house Do you feel safe at home: Yes Do you feel safe in your relationship?: Yes
--- NOTE | 2023-09-16 16:53 | NUR.NOTE ---
Referral given to Care Managers to assist Pt in setting up an appointment with a Alternative Energy Engineer sometime next week for an injury on lower right legNursing Note:
== END 2023-09-16 17:07 | disposition home or self-care (01) ==
PROVIDERS: Emergency Provider Student in an Organized Health Care Education/Training Program; PCP Family Medicine
DX: L03.115 Cellulitis of right lower limb (principal); L97.819 Non-pressure chronic ulcer of other part of right lower leg with unspecified severity; L08.89 Other specified local infections of the skin and subcutaneous tissue; Z86.39 Personal history of other endocrine, nutritional and metabolic disease
CPT/HCPCS: 36416; 82962; 87077; 90471; 90715; 99283; 73590; 87070; 87075; 87186

== ENCOUNTER 2023-09-20 10:15 | Emergency (ER) | payer MEDICARE, OTHER, SELFPAY ==
[2023-09-20] VITALS (30 sets, daily range): BP systolic 138; BP diastolic 64; PULSE 47–80; RESP 15–21; TEMP 36.4–37; O2SAT 95–100
--- NOTE | 2023-09-20 10:15 | RT.EKG_ITS ---
APPROVED REPORT Exam: Resting ECG Reason for Exam: SOB Patient Location: E HR:66 bpm ECG Measurements Heart Rate 66 AXIS AL [id number] P [id number] QRSd 176 QRS 109 QT 524 T -67 QTc 551 Conclusion Atrial fibrillation...V-rate 50- 57, irreg A-activity Ventricular premature complex...V complex w/ short R-R interval Right bundle branch block...QRSd>120, terminal axis(90,270) Borderline ST depression, lateral leads...ST <-0.07mV, I aVL V5 V6
--- NOTE | 2023-09-20 10:43 | ED.GENADUL_ITS ---
Discharge Plan Disposition Patient Disposition: Against Medical Advice Condition: Serious Discharge Details Clinical Impression: Atrial fibrillation, Non-ST elevation NE (NSTEMI) Primary Care Provider: Devorah Epstein ED Provider: Coleen Medina Home Meds and New Rx's Prescriptions: Continued aspirin 81 mg tablet,delayed release (DR/EC) 81 mg PO .QOD guaifenesin [Mucinex] 600 mg tablet extended release 12hr 1,200 mg PO BID (DME) CPAP 0 .Route .MEDSUPPLY Qty: 1 cetirizine [Zyrtec] 10 mg tablet 10 mg PO DAILY PRN omega 4-yta-ail-fish oil [Fish Oil] 60-90-500 mg capsule 1 cap PO DAILY furosemide 20 mg tablet 20 mg PO Q OTHER DAY Patient Comments: opposite of 40 mg M,W, 09/07/22 RH this week taking 40 mg daily, has helped with swelling, 09/15 furosemide 20 mg tablet 40 mg PO Q OTHER DAY Patient Comments: alternated with 20 mg every other day. RH Dulera 50-5 mcg/actuation HFA aerosol inhaler 2 puff inhalation Q12H Qty: 13 12RF Patient Comments: hasn't taken r/t insurance issues cholecalciferol (vitamin D3) 1,000 UNIT tablet 1,000 unit PO DAILY tamsulosin [Flomax] 0.4 mg capsule 0.4 mg PO DAILY Qty: 90 3RF bisoprolol fumarate 5 mg tablet 5 mg PO DAILY Qty: 90 5RF losartan 100 mg tablet 100 mg PO DAILY Qty: 90 6RF omeprazole 20 MG capsule,delayed release(DR/EC) 20 mg PO DAILY selenium 200 mcg tablet 200 mcg PO DAILY rosuvastatin [Crestor] 20 MG tablet 20 mg PO DAILY allopurinol 100 MG tablet 200 mg PO DAILY levofloxacin 750 mg tablet 750 mg PO DAILY Qty: 7 0RF cephalexin 500 mg capsule 500 mg PO QID Qty: 39 0RF Discharge Instructions Instructions: Heart Attack (DC), Heart Healthy Diet (ED) Additional Instructions: Please take a 81 mg chewable baby aspirin a day for the next week. Please follow-up with Dr. Duarte manpower development advisor next week. You are placed on the care management list to assist again ambulating and getting a follow-up appointment. At this time I have advised admission which you have declined at this time and you have opted to leave against medical advice. Please return to the ER if you change your mind or have any chest pain or feel shortness of breath dizziness or any other symptoms as previously discussed. At this time you have understood the risk of having worsening heart attack acuminate including disability or . Referrals: Corina Hernandez MD [ [facility] STAFF PHYSICIAN] - 5 days HPI General Mode of arrival: ambulatory . Date/Time Provider Initiated Documentation: 09/20/23 10:22 . Limitations to Documentation: no limitations . Information obtained by: patient, family, RN notes reviewed and old records reviewed . HPI Narrative: 83-year-old male with past medical history of CHF and right lower extremity cellulitis which was seen on Monday presents to the ER with a chief complaint of dyspnea, lightheadedness which began on Monday. Patient has been taking the antibiotics as prescribed for his extremity. He reports that he presented today for a PCP appointment and was feeling more dyspneic. He does have chronic back pain. History of pericardial effusion denies any cough or coughing any productive sputum up. He has been taking his home medications as prescribed. Related Data Home Medications Medication Instructions Recorded Confirmed cholecalciferol (vitamin D3) 25 1,000 unit PO DAILY 05/22/13 09/16/23 mcg (1,000 unit) tablet omeprazole 20 mg capsule,delayed 20 mg PO DAILY 10/30/15 09/16/23 release rosuvastatin 20 mg tablet (Crestor) 20 mg PO DAILY 12/05/17 09/16/23 allopurinol 100 mg tablet 200 mg PO DAILY 02/07/18 09/16/23 selenium 200 mcg tablet 200 mcg PO DAILY 10/08/18 09/16/23 CPAP #1 ea 03/19/21 07/11/23 tamsulosin 0.4 mg capsule (Flomax) 0.4 mg PO DAILY #90 caps 06/29/21 09/16/23 aspirin 81 mg tablet,delayed 81 mg PO .QOD 07/16/21 09/16/23 release bisoprolol fumarate 5 mg tablet 5 mg PO DAILY #90 tabs 08/19/21 09/16/23 losartan 100 mg tablet 100 mg PO DAILY #90 tabs 08/19/21 09/16/23 cetirizine 10 mg tablet (Zyrtec) 10 mg PO DAILY PRN 11/30/21 09/16/23 guaifenesin 600 mg tablet, 1,200 mg PO BID 11/30/21 09/16/23 extended release 12 hr (Mucinex) furosemide 20 mg tablet 20 mg PO Q OTHER DAY 09/08/22 09/16/23 omega 5-diq-tyk-fish oil 60 mg-90 1 cap PO DAILY 09/08/22 09/16/23 mg-500 mg capsule (Fish Oil) furosemide 20 mg tablet 40 mg PO Q OTHER DAY 04/25/23 09/16/23 mometasone-formoterol HFA 50 mcg-5 2 puff inhalation Q12H #13 grams 07/11/23 09/16/23 mcg/actuation aerosol inhaler (Dulera) cephalexin 500 mg capsule 500 mg PO QID #39 caps 09/16/23 levofloxacin 750 mg tablet 750 mg PO DAILY #7 tabs 09/16/23 Previous Rx's Medication Instructions Recorded tamsulosin 0.4 mg capsule (Flomax) 0.4 mg PO DAILY #90 caps 06/29/21 bisoprolol fumarate 5 mg tablet 5 mg PO DAILY #90 tabs 08/19/21 losartan 100 mg tablet 100 mg PO DAILY #90 tabs 08/19/21 mometasone-formoterol HFA 50 mcg-5 2 puff inhalation Q12H #13 grams 07/11/23 mcg/actuation aerosol inhaler (Dulera) cephalexin 500 mg capsule 500 mg PO QID #39 caps 09/16/23 levofloxacin 750 mg tablet 750 mg PO DAILY #7 tabs 09/16/23 Allergies Allergy/AdvReac Type Severity Reaction Status Date / Time fentanyl AdvReac vomiting Verified 09/16/23 15:24 General Stated Complaint: RespSymp KEEGAN: 3 Review of Systems All systems reviewed & are unremarkable except as noted in HPI and below Cardiovascular Cardiovascular: Reports as per HPI, Denies chest pain, Denies chest pain at rest, Denies chest pain with activity, Reports pedal edema and Reports dyspnea on exertion Respiratory Respiratory: Reports dyspnea on exertion Gastrointestinal Gastrointestinal: Denies diarrhea, Denies nausea and Denies vomiting Exam Narrative Exam Narrative: Constitutional: Alert and oriented x3. Appears stated age. Obese body habitus. Head: Normocephalic, no trauma. Eyes: Pupils PERRL, Red reflex noted, EOM's intact. Eyelids symmetrical without lesions, discharge, or swelling. ENT: Bilateral TM's WNL, External ear normal to inspection, no mastoid TTP, swelling, or erythema, Nasal turbinates WNL, no nasal discharge. Normal dentition, Posterior pharynx WNL, no exudate. Chest: RRR, Normal S1, S2, distal pulses intact. Resp: Lungs clear to auscultation bilaterally, no wheezes, rales, or rhonchi. Abdomen: Soft, non-distended, Normoactive bowel sounds all 4 quads. Musculoskeletal: Normal gait, Skin: No suspicious rashes or lesions. Capillary refill less than 2 sec. Neurologic: Cranial nerves II-XII intact. Alert and oriented x 3. Motor: No deficits noted. Sensory: Intact bilaterally all 4 extremities. Hematologic/Lymphatic: No ecchymosis, no lymphadenopathy. Course Vital Signs Vital signs: Vital Signs Pulse 69 09/20/23 10:20 Respiratory Rate 20 09/20/23 10:20 Blood Pressure 138/64 09/20/23 10:20 Pulse Oximetry 100 09/20/23 10:20 Temperature 37.0 C 09/20/23 10:21 Temperature Source Temporal Artery Scan 09/20/23 10:21 Pulse 69 09/20/23 10:21 Respiratory Rate 20 09/20/23 10:21 Respiratory Effort Short of Breath 09/20/23 10:21 Respiratory Depth Normal 09/20/23 10:21 Blood Pressure 138/64 09/20/23 10:21 Blood Pressure Position Sitting 09/20/23 10:21 Pulse Oximetry 100 09/20/23 10:21 Oxygen Delivery Method Room Air 09/20/23 10:21 Oxygen Flow Rate 0 09/20/23 10:20 Pain Level 0 09/20/23 10:21 Medical Decision Making 83-year-old male with past medical history of CHF and right lower extremity cellulitis which was seen on Monday presents to the ER with a chief complaint of dyspnea, lightheadedness which began on Monday. Patient has been taking the antibiotics as prescribed for his extremity. He reports that he presented today for a PCP appointment and was feeling more dyspneic. He does have chronic back pain. History of pericardial effusion denies any cough or coughing any productive sputum up. He has been taking his home medications as prescribed. Troponin is slightly bumped at a rate of 62, proBNP 3004 and 56. An additional 20 mg of furosemide IV ordered. Hemoglobin A1c is elevated at 6.6, no beau kocytosis, platelets are low at 116, patient does have a history of thrombocytopenia. BUN is 23 creatinine 1.5, glucose 139. Fluvid is negative. CT chest is negative for PE. At this time pending serial troponin. I do suspect troponin is from CHF exacerbation. Serial troponin slightly more elevated at 71, patient reports he has not had any chest pain for the remainder of his stay here. He did not take any aspirin today. 324 mg chewable baby aspirin given. Repeat EKG ordered. I did discuss my concerns. He does states cardiology here and [facility]. I told them that I would like to consult with cardiology. Patient is requesting to be discharged home he reports that he feels much better since being here. He did receive an additional 20 mg of Lasix here. Cardiology paged. They are not in house at this time, will consult [place] [facility] 1440: Transfer center contacted, they report the listing for tomorrow is full regarding capacity. Will get me cardiology, will consider heparin after speaking with Cardiology. 1529: [place]. Elma Saexna with [facility] [place], she recommends admission at the least for diuresis, and echocardiogram, trending troponins. Discussed antico agulation, however upon chart review they opted out of anticoagulation due to bloody sputum in past. Will speak with patient and offer admission and page hospitalist. Spoke at length with patient and family regarding recommendations for admission for NSTEMI. Patient is declining admission at this time. I did discuss with him and for medication including the risk of worsening heart damage and possibly and myocardial infarction, he verbalizes understanding. He does not appear to be under the influence he does appear to have the capacity to make his own decisions. His family members are at bedside and also verbalized understanding of his condition. I did recommend that he take a chewable baby aspirin daily. They are concerned due to previous bloody sputum in the past. However with his current heart condition I do recommend a 81 mg of chewable aspirin. I did also encourage them to return to ED if any worsening, they are agreeable to return or follow up with Dr. Hernandez. Will place patient on care management list to be seen by Dr. Hernandez in next 3-5 days. Patient requesting to leave AMA. The patient appears clinically sober and is not under the influence of any known substances. Discussed risks and benefits with patient. Patient verbalizes understanding of situation and the risks of leaving including worsening condition, developing disability, including but not limited to . Discussed results of labs and imaging, if they were performed and recommendations for further treatment and/or observation. The patient verbalizes understanding of the results discussed. Every effort was made to involve family and situation discussed. At this time patient has opted to leave against medical advice. Patient is alert and oriented and has the capacity to make own decisions. This text was generated using [email or web address] system, please disregard any oddities of phrase or misspellings. Medical Records Medical records reviewed: Yes I reviewed the patient's medical records. Medical records narrative: FINDINGS: Pulmonary Arteries: No evidence of filling defect to suggest pulmonary emboli. Tracheobronchial tree: No mucous plugging. Mediastinum and Gauri: No dominant adenopathy or fluid collection. Pulmonary parenchyma: Evaluation somewhat limited due to expiratory changes and respiratory motion. No consolidation or dominant measurable mass. Pleura: No effusion or pneumothorax. Heart: The heart is mildly dilated. Severe coronary artery calcifications are seen. Status post CABG. Aorta: Thoracic aorta non-dilated. No dissection. Sclerotic changes. Upper abdomen: No acute findings. Bones: Sternal wires. Degenerative changes in the spine and shoulders. Tubes, Catheters, and Lines: None Soft tissues: Unremarkable. IMPRESSION: No evidence of pulmonary embolism. No acute pulmonary abnormality. Lab Data Lab results reviewed: Yes I reviewed the patient's lab results. Labs: Laboratory Tests Range/Units 09/20/23 09/20/23 09/20/23 11:15 11:15 11:30 WBC (4.4-10.8) 10^3/uL 4.86 RBC (4.36-5.78) 10^6/uL 4.66 Hgb (13.5-17.5) g/dL 13.7 Hct (40.0-50.0) % 43.2 MCV (80-95) fL 93 MCH (27.0-33.0) pg 29.4 MCHC (32.0-36.0) % 31.7 L RDW (11.8-14.1) % 14.3 H Plt Count (130-400) 10^3/uL 116 L MPV (8.0-11.0) fL 9.9 Immature Gran % 0.4 Neutrophils % 77.0 Lymphocytes % 11.5 Monocytes % 8.4 Eosinophils % 2.3 Basophils % 0.4 Nucleated RBC % (0.0-0.3) % 0.0 Absolute Neutrophils (1.2-6.7) 10^3/uL 3.74 Absolute Lymphocytes (1.2-3.4) 10^3/uL 0.56 L Absolute Monocytes (0.1-0.8) 10^3/uL 0.41 Absolute Eosinophils (0.0-0.7) 10^3/uL 0.11 Absolute Basophils (0.0-0.2) 10^3/uL 0.02 Sodium (136-145) mmol/L 141 Potassium (3.5-5.1) mmol/L 4.4 Chloride (98-107) mmol/L 106 Carbon Dioxide (21.0-32.0) mmol/L 25.7 Anion Gap (3-11) mmol/L 9.3 BUN (7-18) mg/dL 23 H Creatinine (0.70-1.30) mg/dL 1.5 H Est GFR (CKD-EPI 2020) (mL/min/1.73m2) 45.91 Glucose (74-106) mg/dL 139 H Hemoglobin A1c (<5.7) % 6.6 H Calcium (8.5-10.1) mg/dL 9.4 Total Bilirubin (0.2-1.0) mg/dL 0.9 AST (15-37) U/L 18 ALT (16-63) U/L 19 Alkaline Phosphatase (46-116) U/L 83 Troponin I (< or =60) ng/L 62 H* Cancelled NT-Pro-B Natriuret Pep (<300) pg/mL 3456 H Total Protein (6.4-8.2) g/dL 6.6 Albumin (3.4-5.0) g/dL 3.3 L COVID-19 Source Nasopharynx SARS-CoV-2 (PCR) (Negative) Negative Influenza Type A (PCR) (Negative) Negative Influenza Type B (PCR) (Negative) Negative RSV (PCR) (Negative) Negative Range/Units 09/20/23 13:32 WBC (4.4-10.8) 10^3/uL RBC (4.36-5.78) 10^6/uL Hgb (13.5-17.5) g/dL Hct (40.0-50.0) % MCV (80-95) fL MCH (27.0-33.0) pg MCHC (32.0-36.0) % RDW (11.8-14.1) % Plt Count (130-400) 10^3/uL MPV (8.0-11.0) fL Immature Gran % Neutrophils % Lymphocytes % Monocytes % Eosinophils % Basophils % Nucleated RBC % (0.0-0.3) % Absolute Neutrophils (1.2-6.7) 10^3/uL Absolute Lymphocytes (1.2-3.4) 10^3/uL Absolute Monocytes (0.1-0.8) 10^3/uL Absolute Eosinophils (0.0-0.7) 10^3/uL Absolute Basophils (0.0-0.2) 10^3/uL Sodium (136-145) mmol/L Potassium (3.5-5.1) mmol/L Chloride (98-107) mmol/L Carbon Dioxide (21.0-32.0) mmol/L Anion Gap (3-11) mmol/L BUN (7-18) mg/dL Creatinine (0.70-1.30) mg/dL Est GFR (CKD-EPI 2020) (mL/min/1.73m2) Glucose (74-106) mg/dL Hemoglobin A1c (<5.7) % Calcium (8.5-10.1) mg/dL Total Bilirubin (0.2-1.0) mg/dL AST (15-37) U/L ALT (16-63) U/L Alkaline Phosphatase (46-116) U/L Troponin I (< or =60) ng/L 71 H* NT-Pro-B Natriuret Pep (<300) pg/mL Total Protein (6.4-8.2) g/dL Albumin (3.4-5.0) g/dL COVID-19 Source SARS-CoV-2 (PCR) (Negative) Influenza Type A (PCR) (Negative) Influenza Type B (PCR) (Negative) RSV (PCR) (Negative) Quality:SDOH Health Related Social Needs: No Data to Display Critical Care Time Critical Care Time Critical Care Time: Yes Total Critical Care Time: 30 Attestation: I spent greater than 35 minutes addressing this patient's acute life threatening illness and re-evaluation and consultations. This time was spent engaged in actions directly related to the patient's care. Failure to initiate these interventions would have likely resulted in clinically significant or life threatening deterioration in the patients condition. PFSH All Active Problems (Updated 09/20/23 @ 15:54 by Coleen Medina NP) Non-ST elevation NE (NSTEMI) (Acute) Wound infection (Acute) Cellulitis of right anterior lower leg (Acute) Chronic wound (Acute) Sinusitis (Acute) Interstitial lung disease (Acute) Bronchiectasis (Acute) Recurrent pneumonia (Acute) Tracheobronchitis (Acute) Atrial fibrillation (Chronic) Hypertension (Chronic) Dilated aortic root (Acute) Left ventricular hypertrophy (Acute) Coronary artery disease (Chronic) Family history of prostate cancer in father (Acute) Tubular adenoma of colon (Acute 06/03/16) Primary osteoarthritis of right knee (Acute 04/26/17) injection: 12/14/2020; 04/24/23 Has had Synvisc injections previously by [facility] with minimal relief. Family history of cancer of digestive system (Acute) BPH (benign prostatic hyperplasia) (Chronic) Medical History (Updated 09/20/23 @ 15:54 by Coleen Medina NP) Pericardial effusion Surgical History Colonoscopy - MAC (06/03/16) Family History Mother Colon cancer Father Prostate cancer Social History Smoking/Tobacco Use Status: Former Tobacco Use Quit Date: 06/26/99 Pack-years: 30 Smoking risk assessment performed?: Yes Alcohol Intake: never Drug use: Never Substance use type: does not use Housing: house Do you feel safe at home: Yes Do you feel safe in your relationship?: Yes
--- NOTE | 2023-09-20 10:45 | DI.CT_ITS ---
Exam(s) CT CHEST PE CTA EXAM: CT CHEST PE CTA CLINICAL HISTORY: Dyspnea,. TECHNIQUE: Imaging Protocol: Axial CT angiography was performed with multi-slice acquisition and mu lti-planar reconstructions as well as axial, coronal and sagittal MIP reconstructions. CONTRAST MATERIAL: Intravenous: Omnipaque 350 Contrast volume:100 ml COMPARISON: CT CHEST ABD PELVIS WITH CONTRAST from 12/05/[address] THORAX CTA from 07/16/[address] CHEST HIGH RESOLUTION from 04/01/2021 FINDINGS: Pulmonary Arteries: No evidence of filling defect to suggest pulmonary emboli. Tracheobronchial tree: No mucous plugging. Mediastinum and Gauri: No dominant adenopathy or fluid collection. Pulmonary parenchyma: Evaluation somewhat limited due to expiratory changes and respiratory motion. No consolidation or dominant measurable mass. Pleura: No effusion or pneumothorax. Heart: The heart is mildly dilated. Severe coronary artery calcifications are seen. Status post CAB G. Aorta: Thoracic aorta non-dilated. No dissection. Sclerotic changes. Upper abdomen: No acute findings. Bones: Sternal wires. Degenerative changes in the spine and shoulders. Tubes, Catheters, and Lines: None Soft tissues: Unremarkable. IMPRESSION: No evidence of pulmonary embolism. No acute pulmonary abnormality. RADIATION DOSE DELIVERED: Total DLP DATA REPOSITORY: All CT scans at this facility are submitted to the National Radiology Data Registry (NRDR) Dose Index Registry (DIR) with the [employer] (ACR). RADIATION OPTIMIZATION: All CT scans at this facility use at least one of these dose optimization te chniques: automated exposure control; mA and/or kV adjustment per patient size (includes targeted exa ms where dose is matched to clinical indication); or iterative reconstruction.
[2023-09-20] MEDS: Cephalexin 500 MG CAP PO (11:16)
[2023-09-20] MEDS: levoFLOXacin 500 MG, levoFLOXacin 250 MG 750 MG PO (11:16)
[2023-09-20 11:29] LABS: Abs Immature Grans 0.02 10^3/uL (0.0-0.06); Absolute Basophil Count 0.02 10^3/uL (0.0-0.2); Absolute Eosinophil Count 0.11 10^3/uL (0.0-0.7); Absolute Lymphocyte Count 0.56 10^3/uL (1.2-3.4); Absolute Monocyte Count 0.41 10^3/uL (0.1-0.8); Absolute Neutrophil Count 3.74 10^3/uL (1.2-6.7); Basophils % 0.4; Eosinophils % 2.3; HCT 43.2 % (40.0-50.0); HGB 13.7 g/dL (13.5-17.5); Immature Grans % 0.4; Lymphocytes % 11.5; MCH 29.4 pg (27.0-33.0); MCHC 31.7 % (32.0-36.0); MCV 93 fL (80-95); MPV 9.9 fL (8.0-11.0); Monocytes % 8.4; Platelet Count 116 10^3/uL (130-400); RBC 4.66 10^6/uL (4.36-5.78); RDW 14.3 % (11.8-14.1); RDW-SD 47.8 fL; WBC 4.86 10^3/uL (4.4-10.8)
[2023-09-20 11:54] LABS: ALT 19 U/L (16-63); AST 18 U/L (15-37); Albumin 3.3 g/dL (3.4-5.0); Alkaline Phosphatase 83 U/L (46-116); Anion Gap 9.3 mmol/L (3-11); BUN 23 mg/dL (7-18); Bilirubin, Total 0.9 mg/dL (0.2-1.0); CO2 25.7 mmol/L (21.0-32.0); CREATININE 1.5 mg/dL (0.70-1.30); Calcium 9.4 mg/dL (8.5-10.1); Chloride 106 mmol/L (98-107); Estimated GFR 45.91 (mL/min/1.73m2); Glucose 139 mg/dL (74-106); NT-proBNP 3456 pg/mL (<300); Potassium 4.4 mmol/L (3.5-5.1); Sodium 141 mmol/L (136-145); Total Protein 6.6 g/dL (6.4-8.2)
[2023-09-20 11:58] LABS: Troponin I 62 ng/L (< or =60)
[2023-09-20 12:03] LABS: Hemoglobin A1C 6.6 % (<5.7)
[2023-09-20 12:15] LABS: COVID-19 PCR Negative (Negative); Influenza A PCR Negative (Negative); Influenza B PCR Negative (Negative); RSV PCR Negative (Negative)
[2023-09-20 12:17] LABS: Source Nasopharynx
[2023-09-20] MEDS: Normal Saline - Diluent 50 ML VIAL IJ (12:55)
[2023-09-20] MEDS: Omnipaque 350 MG/ML 100 ML BTL IJ (12:56)
[2023-09-20] MEDS: Furosemide 20 MG/2 ML VIAL IVP (13:28)
[2023-09-20 14:05] LABS: Troponin I 71 ng/L (< or =60)
--- NOTE | 2023-09-20 14:15 | RT.EKG_ITS ---
APPROVED REPORT Exam: Resting ECG Reason for Exam: Repeat, dyspnea Patient Location: E HR:59 bpm ECG Measurements Heart Rate 59 AXIS IN [id number] P [id number] QRSd 175 QRS 104 QT 507 T -62 QTc 502 Conclusion Atrial fibrillation...V-rate 49- 63, irreg A-activity Right bundle branch block...QRSd>120, terminal axis(90,270) Borderline ST depression, lateral leads...ST <-0.07mV, I aVL V5 V6 Lateral precordial ST depression on this EKG and the one done earlier today is new compared to previo us EKGs. No STEMI criteria. RBBB is old.
[2023-09-20] MEDS: Aspirin 81 MG CHEW 324 MG CH (15:11)
--- NOTE | 2023-09-20 15:52 | NUR.NOTE ---
Referral faxed to Dr Hernandez for follow up within 3-5 days for a NSTEMI
== END 2023-09-20 16:06 | disposition left against medical advice (07) ==
PROVIDERS: Emergency Provider Registered Nurse Emergency; PCP Family Medicine
DX: I48.91 Unspecified atrial fibrillation (principal); I21.4 Non-ST elevation (NSTEMI) myocardial infarction; I11.0 Hypertensive heart disease with heart failure; I50.9 Heart failure, unspecified; I45.19 Other right bundle-branch block; Z11.52 Encounter for screening for COVID-19; Z87.891 Personal history of nicotine dependence; Z53.29 Procedure and treatment not carried out because of patient's decision for other reasons
CPT/HCPCS: 36415; 71275; 80053; 87637; 93005; 99285; 83036; 83880; 84484; 85025; 93010; 99284; J1941; J3490

== ENCOUNTER → 2023-09-22 11:39 | Outpatient (BNVA) | payer MEDICARE, OTHER, SELFPAY | PROVIDERS: PCP Family Medicine; Referring Provider Family Medicine; Visit Provider Internal Medicine Cardiovascular Disease | DX: I48.19 Other persistent atrial fibrillation (principal); I25.810 Atherosclerosis of coronary artery bypass graft(s) without angina pectoris; J84.9 Interstitial pulmonary disease, unspecified | CPT/HCPCS: 99213 ==

== ENCOUNTER → 2023-10-13 01:11 | Outpatient (CLI) | payer MEDICARE, OTHER, SELFPAY ==
--- NOTE | 2023-10-13 14:24 | DI.US_ITS ---
APPROVED REPORT EXAM: Comprehensive 2D, Doppler, and color-flow Echocardiogram Patient Location: Out-Patient Systems Security Analyst: Annmarie Echavarria RDCS (AE) Indications: LV and RV function, Atrial fibrillation Other Information Study Quality: Adequate Conclusion Concentric left ventricular hypertrophy. EF is 50%. Wall motion is normal Normal right ventricular size and function Both atria are mildly dilated The aortic valve is calcified and trileaflet with mild regurgitation Mildly thickened mitral leaflets. Mild mitral regurgitation Mild tricuspid regurgitation . Estimated right ventricular systolic pressure is 39 mmHg Dilated aortic root 3.91 cm Dilated ascending aorta 4.46 cm Wall motion Left Ventricle The left ventricle is normal size. The overall left ventricular systolic function appears normal. Sev ere concentric left ventricular hypertrophy. No segmental wall motion abnormalities There is no ventr icular septal defect visualized. LVEF is 50%. Right Ventricle The right ventricle is normal size. The right ventricular systolic function is normal. Atria Left atrium is mildly dilated. Right atrium is mildly dilated. The interatrial septum is intact with no evidence for an atrial septal defect. Aortic Valve Aortic valve is calcified. Aortic valve is trileaflet. No hemodynamically significant valvular aortic stenosis. Mild aortic regurgitation. Mitral Valve Mitral valve leaflets are mildly thickened. No evidence of mitral valve stenosis. Mild mitral regurg itation. Tricuspid Valve The tricuspid valve is normal in structure. There is no tricuspid valve stenosis. Mild tricuspid regu rgitation. The RVSP is 38.8mmHg. Pulmonic Valve The pulmonary valve is normal in structure. There is no pulmonic valvular stenosis. Trace pulmonic re gurgitation. Great Vessels Aortic root is mildly dilated. The ascending aorta is moderate to Aortic arch is not well visualized .severely dilated. The IVC collapses <50% with inspiration. Pericardium There is no pericardial effusion. 2D Dimensions IVSD d PLAX 1.67 cm M: 0.6-1.2 Ao Root d 3.91 cm M: 3.1 - 3.7 LVPW d PLAX 1.68 cm M: 0.6 - 1.2 Ao Asc Diam d 4.46 cm M: 2.6 - 3.4 LVID d PLAX 4.62 cm M: 4.2 - 5.8 LVDs 3.58 cm M: 2.5 - 4.0 LV EF Teichholz 45.2 % FS 22.43 % LV EDV (Teich) 98.4 mL LV ESV (Teich) 53.9 mL Auto EF LV EDV A4C 191.5 mL LV EDV A2C 263.0 mL LV EDV BP 224.5 mL LV ESV A4C 98.8 mL LV ESV A2C 140.4 mL LV ESV BP 118.6 mL LVEF(%) A4C 48.4 % LVEF(%) A2C 46.6 % LVEF(%) BP 47.2 % LV SV A4C 92.7 ml LV SV A2C 122.6 ml LV SV BP 105.9 ml LV CO A4C 4.4 L/min LV CO A2C 6.4 L/min LV CO BP 5.4 L/min HR A4C 47.12 BPM HR A2C 52.03 BPM LV EDV Index (BP) LA Volume LA Length A4C 6.9 cm LA Length A2C 6.2 cm LA Area A4C s 27.96 cm2 LA Area A2C s 26.56 cm2 LA Vol A4C A-L 96.65 mL LA Vol A2C A-L 96.83 mL LA Vol Biplane A-L 101.9 mL LA Vol/BSA A4C A-L LA Vol/BSA A2C A-L LA Vol/BSA BP A-L 41.3 mL/m2 LA Vol A4C MOD 84.5 mL LA Vol A2C MOD 91.8 mL LA Vol BP MOD 92.6 mL RA Volume RA Area A4C 27.0 cm2 RA ESV A4C (A-L) 93.9mL RA Vol/BSA A4C A-L RA Length A4C 6.6 cm RA ESV A4C (MOD) 90.8mL LV Diastology MV E' lateral 0.088 (>0.1 m/s) MV E Vmax 1.16 (0.4-1.3 m/s) MV E/E' LAT 13.13 (<14) Aortic Valve AoV Vmax 2.13 m/s LVOT Vmax 0.87 m/s AoV Peak Grad 36.0 mmHg LVOT Peak Grad 3.0 mmHg AoV Area (Vmax) 1.39 cm2 LVOT VTI 0.202 m AoV VTI 0.421 m LVOT Mean Grad 1.5 mmHg AoV Mean Juan Alberto. 1.52 m/s LVOT SV 68.59 mL AoV Mean Grad 10.3 mmHg LVOT Diam s 2.05 cm AoV Area (VTI) 1.63 cm2 AV Regurg Peak Gr. 53.80 mmHg Velocity Ratio 0.41 AR Decel Angelina 1.1m/sec2 AR DT 3377 msec AR PHT 979 msec AR Vmax 3.67 m/s Mitral Valve MV DT 177 (160-240 msec) MV Vmax TIPS 1.19 m/s MV Mean Grad 1.6 (<2mmHg) MV VTI 0.283 m Pulmonary Valve PV Vmax 0.93 (0.5-1.5 m/s) RVOT Vmax 0.74 m/s PV Peak Grad 3.4 mmHg RVOT Peak Gr. 2.2 mmHg PV Mean Juan Alberto 0.57 m/s RVOT VTI 0.130 m PV Mean Grad 1.6 mmHg RVOT Mean Gr. 1.0 mmHg Tricuspid Valve RA Pressure 8.00 mmHg TR Vmax 2.77 m/s TV S' 0.11 m/s TR Peak Grad 30.7 mmHg RVSP (TR) 38.8 mmHg
== END ==
PROVIDERS: PCP Family Medicine; Visit Provider Internal Medicine Cardiovascular Disease
DX: I48.91 Unspecified atrial fibrillation (principal)
CPT/HCPCS: 93306

== ENCOUNTER → 2023-10-20 13:04 | Outpatient (BNVA) | payer MEDICARE, OTHER, SELFPAY | PROVIDERS: PCP Family Medicine; Referring Provider Family Medicine; Visit Provider Internal Medicine Cardiovascular Disease | DX: I48.19 Other persistent atrial fibrillation (principal); I50.32 Chronic diastolic (congestive) heart failure | CPT/HCPCS: 99213 ==

== ENCOUNTER 2023-11-21 11:14 | Outpatient (CLI) | payer MEDICARE, OTHER, SELFPAY ==
--- NOTE | 2023-11-21 11:15 | RT.EKG_ITS ---
APPROVED REPORT Exam: Resting ECG Reason for Exam: CAD Patient Location: O HR:61 bpm ECG Measurements Heart Rate 61 AXIS IL [id number] P [id number] QRSd 186 QRS 103 QT 516 T -48 QTc 520 Conclusion Atrial fibrillation...V-rate 56- 65, irreg A-activity Right bundle branch block...QRSd>120, terminal axis(90,270) Nondiagnostic ST-T abnormalities
== END 2023-11-21 11:15 | disposition home or self-care (01) ==
LOC: DI.CARD 11:21
PROVIDERS: PCP Family Medicine; Referring Provider Family Medicine; Visit Provider Internal Medicine Cardiovascular Disease
DX: I48.19 Other persistent atrial fibrillation (principal); I25.810 Atherosclerosis of coronary artery bypass graft(s) without angina pectoris
CPT/HCPCS: 93010

== ENCOUNTER → 2023-11-21 11:14 | Outpatient (BNVA) | payer MEDICARE, OTHER, SELFPAY | PROVIDERS: PCP Family Medicine; Referring Provider Family Medicine; Visit Provider Internal Medicine Cardiovascular Disease | DX: R94.31 Abnormal electrocardiogram [ECG] [EKG] (principal); I48.19 Other persistent atrial fibrillation; I25.810 Atherosclerosis of coronary artery bypass graft(s) without angina pectoris; J84.9 Interstitial pulmonary disease, unspecified | CPT/HCPCS: 93005; 99213 ==

== ENCOUNTER 2023-12-02 15:09 | Emergency (ER) | payer MEDICARE, OTHER, SELFPAY ==
--- NOTE | 2023-12-02 15:00 | RT.EKG_ITS ---
APPROVED REPORT Exam: Resting ECG Reason for Exam: low heart rate Patient Location: E HR:30 bpm ECG Measurements Heart Rate 30 AXIS SC [id number] P [id number] QRSd 193 QRS 113 QT 678 T -57 QTc 480 Conclusion Atrial fibrillation...V-rate 30- 30, irreg A-activity Right bundle branch block...QRSd>120, terminal axis(90,270) ST depr, consider ischemia, inferior leads...ST <-0.10mV, II III aVF
[2023-12-02 15:13] VITALS: BP 163/65; PULSE 33; RESP 18; TEMP 36.7; O2SAT 96
--- NOTE | 2023-12-02 15:15 | DI.RAD_ITS ---
Exam(s) XR PORTABLE CHEST AP EXAM: XR PORTABLE CHEST AP CLINICAL HISTORY: dyspnea. TECHNIQUE: 2D digital imaging was performed. COMPARISON: Prior chest x-ray 08/22/2019 FINDINGS: Single AP portable view. Cardiac patent place and chest leads. Sternotomy wires. Heart size is upper normal. The mediastinum is not widened. Lungs are clear. No infiltrates nor obvious pleural effusions. No fractures evident. IMPRESSION: No acute pulmonary findings on this single AP portable view of the chest. Sternotomy wires. DATA REPOSITORY: RADIATION DOSE DELIVERED:
--- NOTE | 2023-12-02 15:23 | W.ED.GENAD ---
Discharge Plan Disposition Specific Acute Inpt Facility: [facility] Condition: Serious Discharge Details Chief Complaint: Dizzy/Sync Clinical Impression: Bradycardia Primary Care Provider: Devorah Epstein ED Provider: Cristobal Sanchez Home Meds and New Rx's Prescriptions: No Action aspirin 81 mg tablet,delayed release (DR/EC) 81 mg PO DAILY furosemide 20 mg tablet 40 mg PO DAILY Patient Comments: alternated with 20 mg every other day. RH guaifenesin [Mucinex] 600 mg tablet extended release 12hr 1,200 mg PO BID (DME) CPAP 0 .Route .MEDSUPPLY Qty: 1 cetirizine [Zyrtec] 10 mg tablet 10 mg PO DAILY PRN omega 2-ids-rso-fish oil [Fish Oil] 60-90-500 mg capsule 1 cap PO DAILY Dulera 50-5 mcg/actuation HFA aerosol inhaler 2 puff inhalation Q12H Qty: 13 12RF Patient Comments: hasn't taken r/t insurance issues cholecalciferol (vitamin D3) 1,000 UNIT tablet 1,000 unit PO DAILY tamsulosin [Flomax] 0.4 mg capsule 0.4 mg PO DAILY Qty: 90 3RF bisoprolol fumarate 5 mg tablet 5 mg PO DAILY Qty: 90 5RF losartan 100 mg tablet 100 mg PO DAILY Qty: 90 6RF omeprazole 20 MG capsule,delayed release(DR/EC) 20 mg PO DAILY selenium 200 mcg tablet 200 mcg PO DAILY rosuvastatin [Crestor] 20 MG tablet 20 mg PO DAILY allopurinol 100 MG tablet 200 mg PO DAILY HPI General Mode of arrival: ambulatory. Date/Time Provider Initiated Documentation: 12/02/23 15:12. Limitations to Documentation: no limitations. Information obtained by: patient. History of Present Illness 83 year old M presents to the emergency department with the chief complaint of epigastric pressure and lightheded when walking, described as moderate, and it has been constant. No relieving factors improve symptom(s), No exacerbating factors reported . Patient notes denies chest pain, fever/chills and syncope. Patient did receive the following treatments prior to arrival, none Related Data Home Medications Medication Instructions Recorded Confirmed cholecalciferol (vitamin D3) 25 1,000 unit PO DAILY 05/22/13 11/21/23 mcg (1,000 unit) tablet omeprazole 20 mg capsule,delayed 20 mg PO DAILY 10/30/15 11/21/23 release rosuvastatin 20 mg tablet (Crestor) 20 mg PO DAILY 12/05/17 11/21/23 allopurinol 100 mg tablet 200 mg PO DAILY 02/07/18 11/21/23 selenium 200 mcg tablet 200 mcg PO DAILY 10/08/18 11/21/23 CPAP #1 ea 03/19/21 11/21/23 tamsulosin 0.4 mg capsule (Flomax) 0.4 mg PO DAILY #90 caps 06/29/21 11/21/23 bisoprolol fumarate 5 mg tablet 5 mg PO DAILY #90 tabs 08/19/21 11/21/23 losartan 100 mg tablet 100 mg PO DAILY #90 tabs 08/19/21 11/21/23 cetirizine 10 mg tablet (Zyrtec) 10 mg PO DAILY PRN 11/30/21 11/21/23 guaifenesin 600 mg tablet, 1,200 mg PO BID 11/30/21 11/21/23 extended release 12 hr (Mucinex) omega 8-mag-njx-fish oil 60 mg-90 1 cap PO DAILY 09/08/22 11/21/23 mg-500 mg capsule (Fish Oil) mometasone-formoterol HFA 50 mcg-5 2 puff inhalation Q12H #13 grams 07/11/23 11/21/23 mcg/actuation aerosol inhaler (Dulera) furosemide 20 mg tablet 40 mg PO DAILY 09/22/23 11/21/23 aspirin 81 mg tablet,delayed 81 mg PO DAILY 10/20/23 11/21/23 release Previous Rx's Medication Instructions Recorded tamsulosin 0.4 mg capsule (Flomax) 0.4 mg PO DAILY #90 caps 06/29/21 bisoprolol fumarate 5 mg tablet 5 mg PO DAILY #90 tabs 08/19/21 losartan 100 mg tablet 100 mg PO DAILY #90 tabs 08/19/21 mometasone-formoterol HFA 50 mcg-5 2 puff inhalation Q12H #13 grams 07/11/23 mcg/actuation aerosol inhaler (Dulera) Allergies Allergy/AdvReac Type Severity Reaction Status Date / Time [facility] Allergy Severe Dizziness/L Verified 11/21/23 11:32 ighthead fentanyl AdvReac vomiting Verified 11/21/23 11:32 General Stated Complaint: Dizzy/Sync KEEGAN: 2 Review of Systems All systems reviewed & are unremarkable except as noted in HPI and below Constitutional Constitutional: Denies chills, Denies fever(s) and Denies weakness Cardiovascular Cardiovascular: Denies chest pain and Reports dyspnea on exertion Respiratory Respiratory: Denies cough and Reports dyspnea on exertion Gastrointestinal Gastrointestinal: Reports abdominal pain, Denies nausea and Denies vomiting Musculoskeletal Musculoskeletal: Denies joint swelling Neurologic Neurologic: Denies weakness Exam Const General: no acute distress Orientation: alert HENMT Head: normal to inspection Ears: external ears normal General nose exam: external nose normal Mouth: moist mucous membranes Eyes General: appearance normal, both eyes and all related structures Neck Neck: normal visual inspection Resp Effort & Inspection: normal respiratory effort and able to speak in complete sentences Auscultation: clear to auscultation bilaterally Cardio Jugular venous pressure: no JVD Rate: bradycardic GI Palpation: soft and nontender Skin General skin exam: no rashes or lesions noted Neuro General: patient alert and patient oriented x3 Extrem General: normal to inspection Psych Mental Status: mental status grossly normal Course Vital Signs Vital signs: Vital Signs Temperature 36.7 C 12/02/23 15:13 Pulse 33 L 12/02/23 15:13 Respiratory Rate 18 12/02/23 15:13 Blood Pressure 163/65 H 12/02/23 15:13 Pulse Oximetry 96 12/02/23 15:13 Temperature 36.7 C 12/02/23 15:13 Pulse 33 L 12/02/23 15:13 Respiratory Rate 18 12/02/23 15:13 Blood Pressure 163/65 H 12/02/23 15:13 Pulse Oximetry 96 12/02/23 15:13 Medical Decision Making 83-year-old male with a history of coronary artery disease, A-fib, who comes in with several weeks of dyspnea with exertion and gets epigastric pain with this. Today his family member checked his pulse and it was in the 30s to 40s so was brought him here. He denies any chest pain, at rest has no difficulty breathing, no fevers, no chills. He is noted to be in A-fib with rates in the 30s to low 40s. He is alert and oriented x 4 speaking in full sentences laying in the bed in no distress intermittently laughing. He says when he is laying down he has absolutely no symptoms. He has a soft nontender abdomen. Clear lung sounds. Given his dyspnea on exertion with epigastric pain concern for possible ACS equivalent. Given he has stable vital signs and is asymptomatic currently will hold on atropine and pacing. Will check a troponin, CBC, CMP and consult with cardiology. Had a negative CTA for PE and August of this year has no evidence of DVT on exam or pleuritic chest pain. So doubt PE at this time. HE is on a beta kady which could be contributing to his bradycardia. Patient continues to feel well laying in the bed, rates are still in the 30s primarily. Labs show a troponin of 80, last time was checked within the 70s, still having no active chest pain. Will consult with cardiology at [facility]. Transfer center called back, still awaiting cardiology consult as they are dealing with other consults. They are still planning on calling back and per transfer center suspect they will accept patient in transfer patient still in the heart rate of 30s, otherwise stable blood pressure and still feels well. Patient stable, still with heart rates in 30s but stable blood pressure mental status. Spoke with Dr. Madrid from cardiology at [facility], she reviewed the case and feels the patient should be transferred there. Likely will need a pacemaker. They are unsure if they will have a bed tonight however felt to wait till tomorrow. Will wait to get confirmation of bed status. Patient updated and is in agreement with this plan. Accepting provider is Dr. Oreilly Differential Diagnosis Differential Diagnosis: ACS, electrolyte abnormality, symptomatic bradycardia Medical Records Medical records reviewed: Yes I reviewed the patient's medical records. Imaging Data Radiologic Study: Attestation: I personally reviewed and interpreted this imaging study as follows: Imaging: X-Ray Radiologist's impression: No acute findings Lab Data Lab results reviewed: Yes I reviewed the patient's lab results. ECG Data Attestation: I personally reviewed and interpreted this ECG (s) as follows: Prior ECG tracings: available for review Interpretation: A-fib with a rate of 30, QTc 480, no STEMI Quality:SDOH Health Related Social Needs: No Data to Display PFSH All Active Problems (Updated 12/02/23 @ 18:13 by Cristobal Sanchez MD) Bradycardia (Acute) Diastolic heart failure (Acute) Sinusitis (Acute) Interstitial lung disease (Acute) Bronchiectasis (Acute) Recurrent pneumonia (Acute) Tracheobronchitis (Acute) Atrial fibrillation (Chronic) Hypertension (Chronic) Dilated aortic root (Acute) Left ventricular hypertrophy (Acute) Coronary artery disease (Chronic) Family history of prostate cancer in father (Acute) Tubular adenoma of colon (Acute 06/03/16) Primary osteoarthritis of right knee (Acute 04/26/17) injection: 12/14/2020; 04/24/23 Has had Synvisc injections previously by [facility] with minimal relief. Family history of cancer of digestive system (Acute) BPH (benign prostatic hyperplasia) (Chronic) Surgical History Colonoscopy - MAC (06/03/16) Family History Mother Colon cancer Father Prostate cancer Social History Smoking/Tobacco Use Status: Former Tobacco Use Quit Date: 06/26/99 Pack-years: 30 Smoking risk assessment performed?: Yes Alcohol Intake: never Drug use: Never Substance use type: does not use Housing: house Do you feel safe at home: Yes Do you feel safe in your relationship?: Yes
[2023-12-02 15:36] LABS: Abs Immature Grans 0.03 10^3/uL (0.0-0.06); Absolute Basophil Count 0.02 10^3/uL (0.0-0.2); Absolute Lymphocyte Count 0.86 10^3/uL (1.2-3.4); Absolute Monocyte Count 0.48 10^3/uL (0.1-0.8); Absolute Neutrophil Count 3.48 10^3/uL (1.2-6.7); Basophils % 0.4 %; HCT 45.6 % (40.0-50.0); HGB 14.2 g/dL (13.5-17.5); Immature Grans % 0.6 %; Lymphocytes % 17.3 %; MCHC 31.1 % (32.0-36.0); MCV 93 fL (80-95); MPV 9.9 fL (8.0-11.0); Monocytes % 9.7 %; Platelet Count 114 10^3/uL (130-400); RDW 15.3 % (11.8-14.1); RDW-SD 52.4 fL; WBC 4.97 10^3/uL (4.4-10.8)
[2023-12-02 15:48] LABS: INR 1.2 (0.9-1.1); PTT Activated 23.1 sec (23.6-32.8); Prothrombin Time 11.6 sec (9.1-11.1)
[2023-12-02 15:59] LABS: ALT 27 U/L (16-63); AST 22 U/L (15-37); Alkaline Phosphatase 81 U/L (46-116); Anion Gap 12.7 mmol/L (3-11); BUN 35 mg/dL (7-18); Bilirubin, Total 1.1 mg/dL (0.2-1.0); CO2 25.3 mmol/L (21.0-32.0); CREATININE 1.9 mg/dL (0.70-1.30); Calcium 9.9 mg/dL (8.5-10.1); Chloride 106 mmol/L (98-107); Estimated GFR 34.57 (mL/min/1.73m2); Glucose 125 mg/dL (74-106); Lipase 64 U/L (16-77); Magnesium 2.1 mg/dL (1.8-2.4); NT-proBNP 3992 pg/mL (<300); Potassium 4.5 mmol/L (3.5-5.1); Sodium 144 mmol/L (136-145); TSH (W/Ref FT4) 1.39 uIU/mL (0.36-3.74); Total Protein 7.2 g/dL (6.4-8.2)
[2023-12-02 16:00] LABS: Troponin I 82 ng/L (< or =60)
[2023-12-02] MEDS: Aspirin 81 MG CHEW 243 MG PO (16:11)
[2023-12-02 16:21] VITALS: BP 123/66; PULSE 33; RESP 16; O2SAT 95
--- NOTE | 2023-12-02 16:43 | DI.VRAD_ITS ---
PROCEDURE INFORMATION: Exam: XR Chest Exam date and time: 12/02/2023 3:43 PM Age: 83 years old Clinical indication: Dyspnea TECHNIQUE: Imaging protocol: Radiologic exam of the chest. Views: 1 view. COMPARISON: CT CHEST PE CTA 09/20/2023 12:59 PM FINDINGS: Tubes, catheters and devices: Sternal wires Lungs: Lungs are clear with no infiltrate or nodule. Pleural spaces: Unremarkable. No pleural effusion. No pneumothorax. Heart/Mediastinum: Cardiomegaly Vasculature: Calcified aorta Bones/joints: Unremarkable. IMPRESSION: Cardiomegaly with no acute abnormality. Dictated and Authenticated by: Anibal Coronado MD. Ordering:JOEY Jain MD
[2023-12-02 16:53] VITALS: RESP 16
[2023-12-02 19:34] LABS: Troponin I 85 ng/L (< or =60)
[2023-12-02 19:46] VITALS: BP 146/64; PULSE 33; RESP 16; O2SAT 98
[2023-12-02 21:42] VITALS: BP 146/64; PULSE 33; RESP 16; TEMP 36.7; O2SAT 98
[2023-12-04 10:32] LABS: Lyme Ab w Rflx to Lyme Confirm Negative (Negative)
[2023-12-05 20:26] LABS: Anaplasma phagocytophilum Negative (Negative); B. miyamotoi PCR Negative (Negative); Babesia divergens/MO-1 Negative (Negative); Babesia duncani Negative (Negative); Babesia microti Negative (Negative); Ehrlichia chaffeensis Negative (Negative); Ehrlichia ewingii/canis Negative (Negative); Ehrlichia muris eauclairensis Negative (Negative)
== END 2023-12-02 21:42 ==
LOC: ER 15:34
PROVIDERS: Emergency Provider Emergency Medicine; PCP Family Medicine
DX: R42 Dizziness and giddiness (principal); R00.1 Bradycardia, unspecified; J84.9 Interstitial pulmonary disease, unspecified; I25.10 Atherosclerotic heart disease of native coronary artery without angina pectoris; I48.91 Unspecified atrial fibrillation; Z79.82 Long term (current) use of aspirin; Z87.891 Personal history of nicotine dependence
CPT/HCPCS: 36415; 80053; 83690; 87798; 93005; 99285; 71045; 83735; 83880; 84443; 84484; 85025; 85610; 85730; 86618; 93010; 99284

== ENCOUNTER → 2023-12-13 10:53 | Outpatient (BNVA) | payer MEDICARE, OTHER, SELFPAY | PROVIDERS: PCP Family Medicine; Referring Provider Family Medicine; Visit Provider Student in an Organized Health Care Education/Training Program | DX: Z95.810 Presence of automatic (implantable) cardiac defibrillator (principal); R00.1 Bradycardia, unspecified; I48.19 Other persistent atrial fibrillation | CPT/HCPCS: 93279 ==

== ENCOUNTER → 2024-01-08 12:42 | Outpatient (BNVA) | payer MEDICARE, OTHER, SELFPAY | PROVIDERS: PCP Family Medicine; Referring Provider Family Medicine; Visit Provider Physician Assistant Surgical | DX: J84.9 Interstitial pulmonary disease, unspecified (principal); J47.9 Bronchiectasis, uncomplicated; J32.9 Chronic sinusitis, unspecified; Z87.01 Personal history of pneumonia (recurrent) | CPT/HCPCS: 99214 ==

== ENCOUNTER 2024-01-22 02:42 | Outpatient (CLI) | payer MEDICARE, OTHER, SELFPAY ==
--- OUTSIDE RECORDS SUMMARY | 2024-01-22 02:58 | XMS_ITS | Continuity of Care Document ---
Author Organization [facility] Address [address] [place] [address] Phone Care Team Providers Care Mill Oiler Name Role Phone CASSI Cabrera Primary Care Provider [phone] KAE Peres Attending Provider DAVID Muñiz Attending Provider [phone] James Su Attending Provider Unavailable [email or web address]) Attending Provider Lily Booth Attending Provider Unavailable Care Teams Patient Care Team Team Status: Active Member Role Status Dates CASSI Chaparro Primary Care Provider Active Visit Care Team Team Status: Inactive Member Role Status Dates CASSI Chaparro Primary Care Provi gavin, Referring Provider Active Start: October 25, 2023 End: October 25, 2023 Marlin Peres DPM Attending Provider Active Start: October 25, 2023 End: October 25, 2023 Visit Care Team Team Status: Inactive Member Role Status Dates CASSI Chaparro Primary Care Provi gavin, Referring Provider Active Start: November 01, 2023 End: November 01, 2023 DAVID Mckeon Attending Provider Active Start: November 01, 2023 End: November 01, 2023 Visit Care Team Team Status: Active Member Role Status Dates CASSI Chaparro Primary Care Provider Active Start: November 06, 2023 James Su Attending Provider Active Start: Vt 2023 Visit Care Team Team Status: Inactive Member Role Status Dates CASSI Chaparro Primary Care Provi gavin, Referring Provider Active Start: November 08, 2023 End: November 08, 2023 Aye Mojica([facility]) QI Liu Attending Provider Active Start: November 08, 2023 End: November 08, 2023 Visit Care Team Team Status: Inactive Member Role Status Dates CASSI Chaparro Primary Care Provi gavin, Referring Provider Active Start: November 15, 2023 End: November 15, 2023 Marlin Peres DPM Attending Provider Active Start: November 15, 2023 End: November 15, 2023 Visit Care Team Team Status: Inactive Member Role Status Dates CASSI Chaparro Primary Care Provi gavin, Referring Provider Active Start: November 22, 2023 End: November 22, 2023 Marlin Peres DPM Attending Provider Active Start: November 22, 2023 End: November 22, 2023 Visit Care Team Team Status: Inactive Member Role Status Dates CASSI Chaparro Primary Care Provi gavin, Referring Provider Active Start: November 29, 2023 End: November 29, 2023 Marlin Peres DPM Attending Provider Active Start: November 29, 2023 End: November 29, 2023 Visit Care Team Team Status: Active Member Role Status Dates CASSI Chaparro Primary Care Provider Active Start: December 13, 2023 Lily Booth Attending Provider Active Start: December 13, 2023 Visit Care Team Team Status: Inactive Member Role Status Dates CASSI Chaparro Primary Care Provi gavin, Referring Provider Active Start: December 13, 2023 End: December 13, 2023 Marlin Peres DPM Attending Provider Active Start: December 13, 2023 End: December 13, 2023 Patient Care Team Team Status: Inactive Member Role Status Dates CASSI Chaparro Primary Care Provi gavin, Referring Provider Active Start: December 20, 2023 End: December 20, 2023 Marlin Peres DPM Attending Provider Active Start: December 20, 2023 End: December 20, 2023 Chief Complaint and Reason for Visit Chief Complaint wound care wound care Amb Documentation wound care wound care wound care wound care Amb Documentation wound care wound care Allergies, Adverse Reactions, Alerts No known allergies Social History Smoking Status Unknown if ever smoked Additional Data Assigned Sex Male Family History Relationship Condition Age at Onset Recorded Date/T tari mother Malignant neoplasm of colon Unknown father Malignant neoplasm of prostate Unknown Problems Active Problems Medical Problem Onset Date Status Benign prostatic hyperplasia Act quirino Chronic venous hypertension (idiopathic) with ulcer of right lower extremity Active Chronic wound Active Primary osteoarthritis of right knee April Active Cellulitis of right anterior lower leg Active 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 Local infection of wound Active Family history of malignant neoplasm of gastrointestinal tract Active Coronary artery disease Active Atrial fibrillation Active Left ventricular hypertrophy Act quirino Non-ST elevation myocardial infarction (NSTEMI) Active Pericardial effusion Active Family history of malignant neoplasm of prostate in father Active Sinusitis Active Aortic root dilatation Active Tracheobronchitis Active Bronchiectasis Active Tubular adenoma of colon June 03, 2016 Acti ve Recurrent pneumonia Active Hypertension Active Interstitial lung disease Active Inactive/Resolved Problems Medical Problem Onset Date Status 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 Insomnia Resolved Obstructive sleep apnea Resolved H/O inguinal hernia repair Resol dariusz Cellulitis of right lower limb R esolved Osteoarthritis of knee, unspecified Resolved History of release of tendon Res olved Low back pain, unspecified Resol dariusz Family history of prostate cancer Resolved Arteriosclerosis of arterial coronary artery byp ass graft Resolved Gout Resolved Family history of malignant neoplasm of digestiv e organs Resolved Chronic kidney disease, stage 3 Resolved Cardiomegaly Resolved Amnesia Resolved ASCVD (arteriosclerotic cardiovascular disease) Resolved Dyspnea Resolved Edema Resolved History of carpal tunnel surgery of left wrist Resolved Umbilical hernia Resolved Hyperlipidemia, unspecified Reso lved Unspecified osteoarthritis, unspecified site Resolved Periodic limb movement disorder Resolved Essential hypertension Resolved Benign prostatic hyperplasia without lower urina ry tract symptoms Resolved Prediabetes Resolved Tight chest Resolved History of tonsillectomy Resolve d Pain in left shoulder Resolved History of rotator cuff surgery Resolved Venous stasis Resolved Benign neoplasm of pituitary gland Resolved Paroxysmal atrial fibrillation R esolved History of cataract surgery Reso lved History of blood disorder Resolv ed Hx of CABG Resolved Obstruction of esophagus Resolve d Allergic rhinitis Resolved Bronchitis Resolved Obesity Resolved Cholelithiasis Resolved Thoracic aortic ectasia Resolved Medications Medication Status Dose Units Route Directions Qty Days St art Date End Date Instructions Aspirin (Adult Aspirin Regimen) 81 mg tablet,delayed release (DR/EC) Active 81 MG PO daily September 27, 2023 12:00a m Furosemide Discontinu ed 20 MG PO daily September 27, 2023 12:00a m December 13, 2023 8:51a m take 2 tabs by mouth three times a week on Monday,, Monday. Take one tab daily on remaining days Omeprazole Active 20 MG PO daily September 27, 2023 12:00a m Rosuvastatin Active 20 MG PO daily Apri l 2023 12:00a m Tamsulosin Discontinu ed 0.4 MG PO daily September 27, 2023 12:00a m December 13, 2023 8:51a m Tamsulosin Active 0.8 MG PO daily December 13, 2023 8:48am Furosemide Active 40 MG PO daily December 13, 2023 8:51am Acetaminophen Active 1000 MG PO Q6H Nov 12:00a m Losartan Active 100 MG PO daily December 13, 2023 12:00a m Metoprolol Succinate Active 25 MG PO daily December 13, 2023 12:00a m Sennosides-Doc usate Sodium Active 2 TAB-CA P PO daily December 13, 2023 12:00a m Polyethylene Glycol 3350 (Miralax) 17 gram/dose powder Active 17 GM PO daily December 13, 2023 12:00a m Immunizations Immunization Event Date Not Given Reason Dose Number Cutting Machine Offbearer Lot Number Vaccine Information Statement (VIS) Detail Tdap (Boostrix, Adacel) February 01, 2012 Tdap (Boostrix, Adacel) September 16, 2023 *Pneumococcal Conjugate PCV 13 (Prevnar) October 07, 2015 *Zoster (Shingles), unspecified formulation November 29, 2012 *Pneumococcal Polysaccharide [id number] October 08, 2012 *Influenza, unspecified formulation April 04, 2018 *Influenza, unspecified formulation June 10, 2019 *Influenza, unspecified formulation March 22, 2017 *Influenza, unspecified formulation March 25, 2016 Insurance Providers Guarantor SERGE MARKS Address [address] [address] Contact Info. Home Phone: Payer Policy Id Coverage Id Subscriber's Name Subscriber Id Effective Date Expiration Date MEDICARE [id number] SERGE MARKS [id number] [place] [id number] SERGE MARKS [id number] [facility] [id number] SERGE MARKS [id number] Encounters Encounter Location(s) Arrival/Admit Date Discharge/Depart Date Provider(s) Departed Referred [facility] [place] October 25, 2023 1:31pm October 25, 2023 1:32pm Marlin Peres DPM Departed Referred [facility] [place] November 01, 2023 1:39pm November 01, 2023 1:40pm DAVID Palacios Non-patient / Non-visit [facility] Nonvisit November 06, 2023 1:44pm James Su Departed Referred [facility] November 08, 2023 1:14pm November 08, 2023 1:15pm Yovani Morales APRN Departed Referred [facility] November 15, 2023 1:22pm November 15, 2023 1:23pm Marlin Peres DPM Departed Referred [facility] November 22, 2023 1:27pm November 22, 2023 1:28pm Marlin Peres DPM Departed Referred [facility] November 29, 2023 1:24pm November 29, 2023 1:25pm Marlin Peres DPM Non-patient / Non-visit [facility] Nonvisit December 13, 2023 8:43am Lily Booth RN Departed Referred [facility] [place] December 13, 2023 12:55pm December 13, 2023 12:56pm Marlin Peres DPM Departed Referred [facility] [place] December 20, 2023 1:01pm December 20, 2023 1:02pm Marlin Peres DPM
--- OUTSIDE RECORDS SUMMARY | 2024-01-22 02:58 | XMS_ITS | Continuity of Care Document ---
Author Organization [facility] Address [address] [place] [address] Phone Care Team Providers Care Neurology Physician Name Role Phone CASSI Cabrera Primary Care Provider DAVID Muñiz Attending Provider [phone] James Su Attending Provider Unavailable [email or web address]@([email or web address]) Attending Provider KAE Peres Attending Provider Lily Booth Attending Provider Unavailable Care Teams Patient Care Team Team Status: Active Member Role Status Dates CASSI Chaparro Primary Care Provider Active Visit Care Team Team Status: Inactive Member Role Status Dates CASSI Chaparro Primary Care Provi gavin, Referring Provider Active Start: November 01, 2023 End: November 01, 2023 DAVID Mckoen Attending Provider Active Start: November 01, 2023 End: November 01, 2023 Visit Care Team Team Status: Active Member Role Status Dates CASSI Chaparro Primary Care Provider Active Start: November 06, 2023 James Su Attending Provider Active Start: [place] 2023 Visit Care Team Team Status: Inactive Member Role Status Dates CASSI Chaparro Primary Care Provi gavin, Referring Provider Active Start: November 08, 2023 End: November 08, 2023 Aye Pina@([facility]) QI Liu Attending Provider Active Start: [...] December 13, 2023 End: December 13, 2023 Visit Care Team Team Status: Inactive Member Role Status Dates CASSI Chaparro Primary Care Provi gavin, Referring Provider Active Start: December 20, 2023 End: December 20, 2023 Marlin Peres DPM Attending Provider Active Start: December 20, 2023 End: December 20, 2023 Patient Care Team Team Status: Inactive Member Role Status Dates CASSI Chaparro Primary Care Provi gavin, Referring Provider Active Start: December 27, 2023 End: December 27, 2023 Marlin Peres DPM Attending Provider Active Start: December 27, 2023 End: December 27, 2023 Chief Complaint and Reason for Visit Chief Complaint wound care Amb Documentation wound care wound care wound care wound care Amb Documentation wound care wound care wound care Allergies, Adverse Reactions, [...] Event Date Not Given Reason Dose Number Refrigeration Service Technician Lot Number Vaccine Information Statement (VIS) Detail Tdap (Boostrix, Adacel) February 01, 2012 Tdap (Boostrix, Adacel) September 16, 2023 *Pneumococcal Conjugate PCV 13 (Prevnar) October 07, 2015 *Zoster (Shingles), unspecified formulation November 29, 2012 *Pneumococcal Polysaccharide [id number] October 08, 2012 *Influenza, unspecified formulation April 04, 2018 *Influenza, unspecified formulation June 10, 2019 *Influenza, unspecified formulation March 22, 2017 *Influenza, unspecified formulation March 25, 2016 Insurance Providers Guarantor SERGE MARKS Address [address] [facility] [address] Contact Info. Home Phone: Payer Policy Id Coverage Id Subscriber's Name Subscriber Id Effective Date Expiration Date MEDICARE [id number] SERGE MARKS [id number] MED[place]VANTAGE [place] [id number] SERGE MARKS [id number] [facility] [id number] SERGE MARKS [id number] Encounters Encounter Location(s) Arrival/Admit Date Discharge/Depart Date Provider(s) Departed Referred [facility] [place] November 01, 2023 1:39pm November 01, 2023 1:40pm DAVID Palacios Non-patient / Non-visit [facility] Nonvisit November 06, 2023 1:44pm James Su Departed Referred [facility] November 08, 2023 1:14pm November 08, 2023 1:15pm Yovani Morales APRN Departed [facility]erred [facility] November 15, 2023 1:22pm November 15, 2023 1:23pm Marlin Peres DPM Departed [facility] November 22, 2023 1:27pm November 22, 2023 1:28pm Marlin Peres DPM Departed Referred [facility] November 29, 2023 1:24pm November 29, 2023 1:25pm Marlin Peres DPM Non-patient / Non-visit [facility] Nonvisit December 13, 2023 8:43am Lily Booth RN Departed Referred [facility] [place] December 13, 2023 12:55pm December 13, 2023 12:56pm Marlin Peres DPM Departed Referred [facility] [place] December 20, 2023 1:01pm December 20, 2023 1:02pm Marlin Peres DPM Departed Referred [facility] [place] December 27, 2023 12:59pm December 27, 2023 1:00pm Marlin Peres DPM
--- OUTSIDE RECORDS SUMMARY | 2024-01-22 02:58 | XMS_ITS | Continuity of Care Document ---
Author Organization [facility] Address [address] [place] [address] Phone Care Team Providers Care Sales Representative Graphic Art Name Role Phone CASSI Cabrera Primary Care Provider [phone] UNKNOWN Attending Provider Unavailable Lily Booth Attending Provider Unavailable KAE Peres Attending Provider MD Tommy Leigh Attending Provider DAVID Muñiz Attending Provider James Su Attending Provider Unavailable [email or web address]) Attending Provider Care Teams Patient Care Team Team Status: Active Member Role Status Dates CASSI Chaparro Primary Care Provider Active Visit Care Team Team Status: Active Member Role Status Dates CASSI Chaparro Primary Care Provider Active Start: September 20, 2023 UNKNOWN Attending Provider Active Start: [facility] 2023 Visit Care Team Team Status: Active Member Role Status Dates CASSI Chaparro Primary Care Provider Active Start: September 27, 2023 Lily Booth Attending Provider Active Start: September 27, 2023 Visit Care Team Team Status: Inactive Member Role Status Dates CASSI Chaparro Primary Care Provi gavin Referring Provider Active Start: October 04, 2023 End: October 04, 2023 Marlin Peres DPM Attending Provider Active Start: October 04, 2023 End: October 04, 2023 Visit Care Team Team Status: Inactive Member Role Status Dates CASSI Chaparro Primary Care Provi gavin, Referring Provider Active Start: October 10, 2023 End: October 10, 2023 Tommy Leigh MD Attending Provider Active Start: October 10, 2023 End: October 10, 2023 Visit Care Team Team Status: Inactive Member Role Status Dates CASSI Chaparro Primary Care Provi gavin, Referring Provider Active Start: October 11, 2023 End: October 11, 2023 Marlin Peres DPM Attending Provider Active Start: October 11, 2023 End: October 11, 2023 Visit Care Team Team Status: Inactive Member Role Status Dates Henrique Cabrera , PA Primary Care Provi gavin, Referring Provider Active Start: October 18, 2023 End: October 18, 2023 Marlin Peres DPM Attending Provider Active Start: October 18, 2023 End: October 18, 2023 Visit Care Team Team Status: Inactive Member Role Status Dates Henrique Cabrera , PA Primary Care Provi gavin, Referring Provider Active [...] November 01, 2023 End: November 01, 2023 Patient Care Team Team Status: Active Member Role Status Dates CASSI Chaparro Primary Care Provider Active Start: November 06, 2023 James Su Attending Provider Active Start: Ame yo 2023 Patient Care Team Team Status: Inactive Member Role Status Dates CASSI Chaparro Primary Care Provi gavin, Referring Provider Active Start: November 08, 2023 End: November 08, 2023 Aye Mojica[facility] APRN Attending Provider Active Start: November 08, 2023 End: November 08, 2023 Chief Complaint and Reason for Visit Chief Complaint Amb Documentation new patient Chronic venous hypertension WOUND CARE wound care wound care wound care Amb Documentation wound care Reason for Visit Chronic venous hyper tension (idiopathic) with ulcer of right lower extremity Allergies, Adverse Reactions, Alerts No known allergies [...] Days St art Date End Date Instructions Allopurinol Active 200 MG PO daily September 27, 2023 12:00a m Aspirin (Adult Aspirin Regimen) 81 mg tablet,delayed release (DR/EC) Active 81 MG PO daily September 27, 2023 12:00a m Bisoprolol Fumarate Active 5 MG PO daily September 27, 2023 12:00a m Cephalexin Active 500 MG PO 4 times p er day September 27, 2023 12:00a m Cetirizine (All Day Allergy (Cetirizine)) 10 mg tablet Active 10 MG PO daily September 27, 2023 12:00a m Cholecalciferol (Vitamin D3) Active 25 MCG PO daily September 27, 2023 12:00a m Furosemide Active 20 MG PO daily September 27, 2023 12:00a m take 2 tabs by mouth three times a week on Monday,, Monday. Take one tab daily on remaining days Levofloxacin Active 750 MG PO daily 2023 12:00a m Dextromethorphan- Guaifenesin (Mucinex Dm) 60-1,200 mg tablet extended release 12 hr Active 1 TAB PO Q12H September 27, 2023 12:00a m Omeprazole Active 20 MG PO daily September 27, 2023 12:00a m Rosuvastatin Active 20 MG PO daily 2023 12:00a m Tamsulosin Active 0.4 MG PO daily September 27, 2023 12:00a m Immunizations Immunization Event Date Not Given Reason Dose Number Crt Lot Number Vaccine Information Statement (VIS) Detail Tdap (Boostrix, Adacel) February 01, 2012 Tdap (Boostrix, Adacel) September 16, 2023 *Pneumococcal Conjugate PCV 13 (Prevnar) October 07, 2015 *Zoster (Shingles), unspecified formulation November 29, 2012 *Pneumococcal Polysaccharide [id number] October 08, 2012 *Influenza, unspecified formulation April 04, 2018 *Influenza, unspecified formulation June 10, 2019 *Influenza, unspecified formulation March 22, 2017 *Influenza, unspecified formulation March 25, 2016 Vital Signs Vital Reading Result Reference Range Collection Date/Time Height 73 [in_i] October 09 2:21pm Weight 168.00 [lb_av] October 09 024 2:21pm Body Temperature 97.2 [degF] 97.6-99.6 October 10, 2023 2:21pm Heart Rate 57 /min 60-100 [place] [address], 202 4 2:21pm Respiratory rate 18 /min 12-18 October 10, 2023 2:21pm Oxygen saturation by Pulse oximetry 95 % 92-100 October 10, 2023 2:2 1pm BP Systolic 118 mm[Hg] 90-130 October 09 2:21pm BP Diastolic 66 mm[Hg] 70-80 October 09 2:21pm BMI (Body Mass Index) 22.1 kg/m2 October 10, 2023 2:21pm Insurance Providers Guarantor SERGE MARKS Address [address] [facility] [address] Contact Info. Home Phone: Payer Policy Id Coverage Id Subscriber's Name Subscriber Id Effective Date Expiration Date MEDICARE [id number] SERGE MARKS [id number] [place]ANTAGE [place] [id number] SERGE MARKS [id number] [facility] [id number] SERGE MARKS [id number] Encounters Encounter Location(s) Arrival/Admit Date Discharge/Depart Date Provider(s) Non-patient / Non-visit [facility] September 20, 2023 11:59pm Unknown Non-patient / Non-visit [facility] Nonvisit September 27, 2023 8:37am Lily Booth RN Departed Referred [facility] October 04, 2023 12:57pm October 04, 2023 12:58pm Marlin Peres DPM Departed Physician/Prov ider Office Visit [facility] October 10, 2023 1:55pm October 10, 2023 11:59pm Tommy Leigh MD Departed Referred [facility] October 11, 2023 1:01pm October 11, 2023 1:02pm Marlin Peres DPM Departed Referred [facility] W[facility] October 18, 2023 1:53pm October 18, 2023 1:54pm Marlin Peres DPM Departed Referred [facility] W[facility] October 25, 2023 1:31pm October 25, 2023 1:32pm Marlin Peres DPM Departed Referred [facility]ound [place] November 01, 2023 1:39pm November 01, 2023 1:40pm DAVID Palacios Non-patient / Non-visit [facility] Nonvisit November 06, 2023 1:44pm James Su Departed Referred [facility] November 08, 2023 1:14pm November 08, 2023 1:15pm Yovani Morales APRN Recent Diagnosis Onset Date Chronic venous hypertension (idiopathic) with ulcer of right lower extremity Assessments Diagnosis Onset Date Resolution Status Chronic venous hypertension (idiopathic) with ulcer of right lower extremity acute Plan of Treatment Author Tommy Butlertatiana [facility] Authored October 10, 2023 3:3 5pm This patient has I believe c lassic venous hypertension with symptoms of chronic dependent edema and more recently a ulceration of his right pretibial area and area that is very consistent with venous hypertension. He does not have evidence of infection at this time. He has good arterial pulses both sides with biphasic posterior tibial and dorsalis pedis signals. I do not believe that he has significant arterial vascular disease. On the other hand he has a history of atherosclerotic coronary artery disease. He does not seem to be debilitated. I think that the patient should continue with his compression garment on the right side and on the left side. I am not aware of what his cardiac function is like but I think would be appropriate at this point anyhow to put him in a 20-30 mm knee-high compression stocking after healing in his right side and they are currently utilizing an Unna boot. He should have a compression garment on his left side which she does have again 20-30 mm compression. This should be worn during the course of the day. He should avoid prolonged periods of sitting or standing in 1 position. Walking is beneficial. I will see the patient back on an as-needed basis per request of the wound center. Future Tests Future scheduled test information is unavailable Pending Tests Pending diagnostic test information is unavailable Future Visits Future appointment information is unavailable Referrals to Other Providers Referral information is unavailable Future Procedures Future procedure information is unavailable Future Medications Future medication information is unavailable Patient Instructions Patient instructions are unavailable
--- OUTSIDE RECORDS SUMMARY | 2024-01-22 02:58 | XMS_ITS | Continuity of Care Document ---
Author Organization [facility] Address [address] [place] [address] Phone Care Team Providers Care Jig Operator Name Role Phone CASSI Cabrera Primary Care Provider [phone] James Su Attending Provider Unavailable [email or web address]@([email or web address]) Attending Provider KAE Peres Attending Provider Lily Booth Attending Provider Unavailable Care Teams Patient Care Team Team Status: Active Member Role Status Dates CASSI Chaparro Primary Care Provider Active Visit Care Team Team Status: Active Member Role Status Dates CASSI Chaparro Primary Care Provider Active Start: November 06, 2023 James Su Attending Provider Active Start: 2023 Visit Care Team Team Status: Inactive Member Role Status Dates CASSI Chaparro Primary Care Provi gavin, Referring Provider Active Start: November 08, 2023 End: November 08, 2023 Aye Pina@([facility]) QI Liu Attending Provider Active Start: November [...] December 20, 2023 End: December 20, 2023 Visit Care Team Team Status: Inactive Member Role Status Dates CASSI Chaparro Primary Care Provi gavin, Referring Provider Active Start: December 27, 2023 End: December 27, 2023 Marlin Peres DPM Attending Provider Active Start: December 27, 2023 End: December 27, 2023 Patient Care Team Team Status: Inactive Member Role Status Dates CASSI Chaparro Primary Care Provi gavin, Referring Provider Active Start: January 03, 2024 End: January 03, 2024 Marlin Peres DPM Attending Provider Active Start: January 03, 2024 End: January 03, 2024 Chief Complaint and Reason for Visit Chief Complaint Amb Documentation wound care wound care wound care wound care Amb Documentation wound care wound care wound care wound care Allergies, [...] 8:51am Acetaminophen Active 1000 MG PO Q6H Dagoberto e 2023 12:00a m Losartan Active 100 MG PO [...] Event Date Not Given Reason Dose Number Associate Product Manager Lot Number Vaccine Information Statement (VIS) Detail Tdap (Boostrix, Adacel) February 01, 2012 Tdap (Boostrix, Adacel) September 16, 2023 *Pneumococcal Conjugate PCV 13 (Prevnar) October 07, 2015 *Zoster (Shingles), unspecified formulation November 29, 2012 *Pneumococcal Polysaccharide [id number] October 08, 2012 *Influenza, unspecified formulation April 04, 2018 *Influenza, unspecified formulation June 10, 2019 *Influenza, unspecified formulation March 22, 2017 *Influenza, unspecified formulation March 25, 2016 Insurance Providers Guarantor SERGE MARKS Address [address] [facility] [address] Contact Info. Home Phone: Payer Policy Id Coverage Id Subscriber's Name Subscriber Id Effective Date Expiration Date MEDICARE [id number] SERGE MARKS [id number] MEDICARE ADVANTAGE [place] [id number] SERGE MARKS [id number] [facility] [id number] SERGE Thomas KENDRICK [id number] Encounters Encounter Location(s) Arrival/Admit Date Discharge/Depart Date Provider(s) Non-patient / Non-visit [facility] Nonvisit November 06, 2023 1:44pm James Su Departed Referred [facility]ound [place] November 08, 2023 1:14pm November 08, 2023 1:15pm Yovani Morales APRN Departed Referred [facility]ound [place] November 15, 2023 1:22pm November 15, 2023 1:23pm Marlin Peres DPM Departed Referred [facility] November 22, 2023 1:27pm November 22, 2023 1:28pm Marlin Peres DPM Departed Referred [facility] November 29, 2023 1:24pm November 29, 2023 1:25pm Marlin Peres DPM Non-patient / Non-visit [facility] Nonvisit December 13, 2023 8:43am Lily Booth , LENY Departed Referred [facility]ound [place] December 13, 2023 12:55pm December 13, 2023 12:56pm Marlin Peres DPM Departed Referred [facility]ound [place] December 20, 2023 1:01pm December 20, 2023 1:02pm Marlin Peres DPM Departed Referred [facility] [place] December 27, 2023 12:59pm December 27, 2023 1:00pm Marlin Peres DPM Departed Referred [facility] [place] January 03, 2024 1:07pm January 03, 2024 1:08pm Marlin Peres DPM
--- OUTSIDE RECORDS SUMMARY | 2024-01-22 02:58 | XMS_ITS | Continuity of Care Document ---
Author Organization [facility] Address [address] [place] [address] Phone Care Team Providers Care Agent Licensing Clerk Name Role Phone CASSI Cabrera Primary Care Provider [phone] KAE Peres Attending Provider Lily Booth Attending [...] December 27, 2023 End: December 27, 2023 Visit Care Team Team Status: Inactive Member Role Status Dates CASSI Chaparro Primary Care Provi gavin, Referring Provider Active Start: January 03, 2024 End: January 03, 2024 Marlin Peres DPM Attending Provider Active Start: January 03, 2024 End: January 03, 2024 Patient Care Team Team Status: Inactive Member Role Status Dates CASSI Chaparro Primary Care Provi gavin, Referring Provider Active Start: January 10, 2024 End: January 10, 2024 Marlin Peres DPM Attending Provider Active Start: January 10, 2024 End: January 10, 2024 Chief Complaint and Reason for Visit Chief Complaint wound care wound care wound care Amb Documentation wound care wound care wound care wound care wound [...] Active Primary osteoarthritis of right knee April 1s 2016 Active Cellulitis of right anterior lower leg [...] by mouth three times a week on Monday, day, Monday. Take one tab daily on remaining [...] Acetaminophen Active 1000 MG PO Q6H Dagoberto 2023 12:00a m Losartan Active 100 MG [...] Event Date Not Given Reason Dose Number Brand Designer Lot Number Vaccine Information Statement (VIS) Detail Tdap (Boostrix, Adacel) February 01, 2012 Tdap (Boostrix, Adacel) September 16, 2023 *Pneumococcal Conjugate PCV 13 (Prevnar) October 07, 2015 *Zoster (Shingles), unspecified formulation November 29, 2012 *Pneumococcal Polysaccharide [id number] October 08, 2012 *Influenza, unspecified formulation April 04, 2018 *Influenza, unspecified formulation June 10, 2019 *Influenza, unspecified formulation March 22, 2017 *Influenza, unspecified formulation March 25, 2016 Insurance Providers Guarantor SERGE MARKS Address [address] [place] [address] Contact Info. Home Phone: Payer Policy Id Coverage Id Subscriber's Name Subscriber Id Effective Date Expiration Date MEDICARE [id number] SERGE MARKS [id number] MEDICARE ADVANTAGE [place] [id number] SERGE MARKS [id number] [employer] [id number] SERGE MARKS [id number] Encounters Encounter Location(s) Arrival/Admit Date Discharge/Depart Date Provider(s) Departed [facility] November 15, 2023 1:22pm November 15, 2023 1:23pm Marlin Peres DPM Departed Referred [facility] Wound [place] November 22, 2023 1:27pm November 22, 2023 1:28pm Marlin Peres DPM Departed Referred [facility] W[facility] [place] November 29, 2023 1:24pm November 29, 2023 1:25pm Mariln Peres DPM Non-patient / Non-visit [facility] Nonvisit December 13, 2023 8:43am Lily Booth RN Departed Referred [facility] [place] December 13, 2023 12:55pm December 13, 2023 12:56pm Marlin Peres DPM Departed Referred [facility] [place] December 20, 2023 1:01pm December 20, 2023 1:02pm Marlin Peres DPM Departed Referred [facility] [place] December 27, 2023 12:59pm December 27, 2023 1:00pm Marlin Peres DPM Departed Referred [facility] [place] January 03, 2024 1:07pm January 03, 2024 1:08pm Marlin Peres DPM Departed Referred [facility] [place] January 10, 2024 1:11pm January 10, 2024 1:12pm Marlin Peres DPM
--- OUTSIDE RECORDS SUMMARY | 2024-01-22 02:58 | XMS_ITS | Continuity of Care Document ---
Author Organization [facility] Address [address] [place] [address] Phone Care Team Providers Care Top Carrier Name Role Phone CASSI Cabrera Primary Care Provider UNKNOWN Attending Provider Unavailable Lily Booth Attending Provider Unavailable KAE Peres Attending Provider MD Tommy Leigh Attending Provider [phone] Care Teams Patient Care Team Team Status: Active Member Role Status Dates CASSI Chaparro Primary Care Provider Active Visit Care Team Team Status: Active Member Role Status Dates CASSI Chaparro Primary Care Provider Active Start: September 20, 2023 UNKNOWN Attending Provider Active Start: [facility] 2023 Visit Care Team Team Status: Active Member Role Status Dates CASSI Chaparro Primary Care Provider Active Start: September 27, 2023 Lily Booth Attending Provider Active Start: September 27, 2023 Visit Care Team Team Status: Inactive Member Role Status Dates CASSI Chaparro Primary Care Provi gavin, Referring Provider Active Start: October 04, 2023 [...] October 11, 2023 End: October 11, 2023 Patient Care Team Team Status: Inactive Member Role Status Dates CASSI Chaparro Primary Care Provi gavin, Referring Provider Active Start: October 18, 2023 End: October 18, 2023 Marlin Peres DPM Attending Provider Active Start: October 18, 2023 End: October 18, 2023 Chief Complaint and Reason for Visit Chief Complaint Amb Documentation new patient Chronic venous hypertension WOUND CARE wound care Reason for Visit Chronic venous hyper tension (idiopathic) with ulcer of right lower extremity Allergies, Adverse Reactions, Alerts No known allergies Social History Smoking Status Unknown if ever smoked Additional Data Assigned Sex Male Problems Active Problems Medical Problem Onset Date Status Chronic venous hypertension (idiopathic) with ulcer of right lower extremity Active 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 Inactive/Resolved Problems Medical Problem Onset Date [...] days Levofloxacin Active 750 MG PO daily Apr2023 12:00a m Dextromethorphan- Guaifenesin (Mucinex Dm) 60-1,200 mg tablet extended release 12 hr Active 1 TAB PO Q12H September 27, 2023 12:00a m Omeprazole Active 20 MG PO daily September 27, 2023 12:00a m Rosuvastatin Active 20 MG PO daily 2023 12:00a m Tamsulosin Active 0.4 MG PO daily September 27, 2023 12:00a m Vital Signs Vital Reading Result Reference Range Collection Date/Time Height 73 [in_i] October 09 2:21pm Weight 168.00 [lb_av] October 09, 2:21pm Body Temperature 97.2 [degF] 97.6-99.6 October 10, 2023 2:21pm Heart Rate 57 /min 60-100 October 09 2:21pm Respiratory rate 18 /min 12-18 October 10, 2023 2:21pm Oxygen saturation by Pulse oximetry 95 % 92-100 October 10, 2023 2:2 1pm BP Systolic 118 mm[Hg] 90-130 October 09 2:21pm BP Diastolic 66 mm[Hg] 70-80 October 09 2:21pm BMI (Body Mass Index) 22.1 kg/m2 October 10, 2023 2:21pm Insurance Providers Guarantor SERGE MARKS Address [address] [place] [place] [address] Contact Info. Home Phone: Payer Policy Id Coverage Id Subscriber's Name Subscriber Id Effective Date Expiration Date MEDICARE [id number] SERGE MARKS [id number] [place]IC[place]ANTAGE [place] [id number] SERGE MARKS [id number] [facility] [id number] SERGE MARKS [id number] Encounters Encounter Location(s) Arrival/Admit Date Discharge/Depart Date Provider(s) Non-patient / Non-visit [facility] September 20, 2023 11:59pm Unknown Non-patient / Non-visit [facility] Nonvisit September 27, 2023 8:37am Lily Booth RN Departed Referred [facility] October 04, 2023 12:57pm October 04, 2023 12:58pm Marlin Peres DPM Departed Physician/Prov ider Office Visit [facility] General Surgery Office October 10, 2023 1:55pm October 10, 2023 11:59pm Tommy Leigh MD Departed Referred [facility] [place] October 11, 2023 1:01pm October 11, 2023 1:02pm Marlin Peres DPM Departed Referred [facility] [place] October 18, 2023 1:53pm October 18, 2023 1:54pm Marlin Peres DPM Recent Diagnosis Onset Date Chronic venous hypertension (idiopathic) with ulcer of right lower extremity Assessments Diagnosis Onset Date Resolution Status Chronic venous hypertension (idiopathic) with ulcer of right lower extremity acute Plan of Treatment Author [facility] Authored October 10, 2023 3:3 5pm [...]
--- OUTSIDE RECORDS SUMMARY | 2024-01-22 02:59 | XMS_ITS | Encounter Summary ---
Author Organization [facility] Address [address] [place] [address] Care Team Providers Care Plate Setter Name Role Phone Devorah Epstein MD Primary Care Provider [phone] Encounter Details Date Type Department Care Team (Late st Contact Info) Description 04/15/2019 Results Only [facility] [phone] Siena Valenzuela, DO [address] [phone] Social History Tobacco Use Types Packs/Day Years Used Date Smoking Tobacco: Never Smokeless Tobacco: Never Alcohol Use Standard Drinks/Week Comments No 0 (1 standard drink = 0.6 oz pur e alcohol) Sex and Gender Information Value Date Recorded Sex Assigned at Not on file Gender Identity Not on file Sexual Orientation Not on file documented as of this encounter Plan of Treatment Not on file documented as of this encounter Procedures Procedure Name Priority Date/Time Associated Diagnosis Comments SURGICAL PATHOLOGY Routine 04/15/2019 15 :59 EDT documented in this encounter Results * SURGICAL PATHOLOGY (04/15/2019 15:59 EDT) Pathology Report: SURGICAL PATHOLOGY REPORT Reports generated via electronic interface contain original data; however they are lacking the format of the original report. Caution should be taken when reading/interpret ing unformatted reports. Name: ? SERGE MARKS ? Accession #: ? [id number] ? : ? 1940 (Age: 78) ??M ? Collect Date: ? 04/15/2019 ? Location: ? [facility] ? Receive Date: ? 04/16/2019 ? Provider: SIENA VALENZUELA DO Copy to: ? Final Pathologic Diagnosis: A. SMALL INTESTINE, BIOPSY: - Duodenal mucosa with no significant diagnostic abnormality. B. ESOPHAGUS, DISTAL, BIOPSY: - Gastric-type mucosa with mild chronic inflammation. - Negative for intestinal metaplasia and dysplasia. - Squamous mucosa with mild reflux changes. Document reviewed and electronically signed by: MARTINEZ ZAYAS MD Report ??Date: 04/17/2019 14:54 By the signature above, the attending physician certifies that he/she has personally conducted a gross and/or microscopic examination of the described specimens and rendered or confirmed the above diagnosis. Specimen(s) Received: A. ??Small bowel bx B. ??Distal esophagus bx Clinical History: Fe def anemia, hx of polyps; clinical diagnosis code: Z12.11, D50.8, Z86.010 Gross Description: A. ?Received in formalin labelled with proper patient identification (initials C, P) and small bowel BX is a single pink-cruz tissue fragment (0.4 x 0.2 x 0.2 cm). Submitted intact in A1. B. ?Received in formalin labelled with proper patient identification (initials C, P) and distal esophagus BX are two pink-cruz tissues (0.1 x 0.1 x 0.1 cm and 0.3 x 0.2 x 0.2 cm). Entirely submitted in B1. CASSI Cook (ASCP) 04/16/2019 4:20 PM End of Report [facility] 04/15/2019 15:5 9 EDT 04/16/2019 15:59 EDT Siena Valenzuela DO PATHOLOGY ORDERABLES [facility] [address] [place] [address] documented in this encounter Visit Diagnoses Not on filedocumented in this encounter Care Teams Plate Setter Relationship Specialty Start Date End Date Devorah Epstein MD [address] [place] [phone] PCP - General 11/04/15 documented as of this encounter
--- OUTSIDE RECORDS SUMMARY | 2024-01-22 02:59 | XMS_ITS | Referral Summary ---
Author Organization [facility] Address [address] [place] [address] Care Team Providers Care Treasury Analyst Name Role Phone Devorah Epstein MD Primary Care Provider [phone] Encounters Date Type Department Care Team Description 12/03/2023 Lab Requisition [facility] Pathology & Laboratory Medicine - [address] [address] Outr Resulting Lab, Provider from Last 3 Months Allergies Active Allergy Reactions Criticality Noted Date Comments Fentanyl Nausea And Vomiting 02/07/2018 Medications Medication Sig Dispensed Refills Start Date End Date Status acetaminophen (TYLENOL) 500 mg tablet Take 500 mg by mouth every 6 hours as needed for Pain. Active allopurinol (ZYLOPRIM) 100 mg tablet Take 200 mg by mouth daily. Active aspirin chewable 81 mg tablet Take 81 mg by mouth daily. Active bisoprolol fumarate (ZEBETA ORAL) Take 2.5 mg by mouth daily. Active chlorthalidone (HYGROTON) 25 mg tablet Take 25 mg by mouth daily. Active ergocalciferol, vitamin D2, (VITAMIN D ORAL) Take by mouth. Active glucosamine HCl (GLUCOSAMINE, BULK, MISC) by misc (non-drug; combo route) route. Active omeprazole (PRILOSEC) 20 mg capsule Take 20 mg by mouth daily. Active rosuvastatin (CRESTOR) 10 mg tablet Take 20 mg by mouth daily. Active selenium 100 mcg tablet Take 200 mcg by mouth daily. Active losartan (COZAAR) 25 mg tablet Take 25 mg by mouth daily. Active Active Problems Problem Noted Date Diagnosed Date NSTEMI (non-ST elevated myocardial infarction) ( [facility]) 02/07/2018 MALCOM on CPAP 02/07/2018 Hypertension 02/07/2018 Polycystic kidney disease 02/07/2018 CAD (coronary artery disease) 02/07/2018 Elevated troponin 02/07/2018 Social History Tobacco Use Types Packs/Day Years Used Date Smoking Tobacco: Never Smokeless Tobacco: Never Alcohol Use Standard Drinks/Week Comments No 0 (1 standard drink = 0.6 oz pur e alcohol) Interpersonal Safety Answer Date Record ed Physically Hurt Never 01/27/2020 Verbally Threaten Not on file 01/27/2020 Sex and Gender Information Value Date Recorded Sex Assigned at Not on file Gender Identity Not on file Sexual Orientation Not on file Last Filed Vital Signs Vital Sign Reading Time Taken Comments Blood Pressure 129/71 02/07/2018 0821 EDT Pulse - - Temperature 36.9 ??C (98.4 ??F) 02/07/2018 08 EDT Respiratory Rate 18 02/07/2018 0832 EDT Oxygen Saturation 96% 02/07/2018 08 EDT Inhaled Oxygen Concentration - - Weight 125.2 kg (276 lb) 02/07/2018 041 EDT Height 182.9 cm (6') 02/07/2018 0417 EDT Body Mass Index 37.43 02/07/2018 0417 EDT Plan of Treatment Not on file Procedures Procedure Name Priority Date/Time Associated Diagnosis Comments LYME AB Routine 12/02/2023 15:25 EDT from Last 3 Months Results * LYME AB (12/02/2023 15:25 EDT) Lyme Ab Negative Negative 12/04/2023 10:26 EDT [facility] Blood VENOUS BLOOD / Unknown 12/02/2023 15:25 EDT 12/03/2023 15:46 EDT Provider Outr Resulting Lab IMMUNOLOGY A ND SEROLOGY ORDERABLES [facility] [address] [place], [place] [id number] from Last 3 Months Advance Directives For more information, please contact: [phone] * Full Code (Latest Code Status on File) Date Activated Date Inactivated Comments 02/07/2018 4:31 02/07/2018 17:44 Question Answer Comments Reason for decision includes: Full code consistent with overall plan of care Who participated in the discussion? Not Discusse d Care Teams Treasury Analyst Relationship Specialty Start Date End Date Devorah Epstein MD [address] [place] [phone] PCP - General 11/04/15
--- OUTSIDE RECORDS SUMMARY | 2024-01-22 02:59 | XMS_ITS | Encounter Summary ---
Author Organization [facility] Address [address] [place] [address] Care Team Providers Care Showroom Sales Assistant Name Role Phone Devorah Epstein MD Primary Care Provider [phone] Encounter Details Date Type Department Care Team (Late st Contact Info) Description 05/24/2021 Lab Requisition [facility] Pathology & Laboratory Medicine - [address] [address] Outr Resulting Lab, Provider Social History Tobacco Use Types Packs/Day Years [...] Procedure Name Priority Date/Time Associated Diagnosis Comments CCP ANTIBODIES Routine 05/24/2021 14:15 EST DOUBLE STRANDED DNA ANTIBODY, IGG Routine 05/24/2021 14:15 EST RHEUMATOID FACTOR Routine 05/24/2021 14: 15 EST ANTI NUCLEAR AB (CAITLIN), IFA Routine 05/24/2021 14:15 EST documented in this encounter Results * RHEUMATOID FACTOR (05/24/2021 14:15 EST) Pathologist [facility] Rheumatoid Factor <8.6 <12.0 IU/mL 05/24/2021 21:33 EST [facility] Blood VENOUS BLOOD / Unknown 05/24/2021 14:15 EST 05/24/2021 20:58 EST Provider Outr Resulting Lab CHEMISTRY & BLOOD GAS ORDERABLES Performing Organization Address [facility] de Phone Number [facility] [address] [place] [address] * ANTI DNA (DOUBLE STRANDED) (05/24/2021 14:15 EST) Pathologist [facility] Anti-DNA (Double Stranded) 20.5 <30.0 IU/mL 05/25/2021 12:46 EST [facility] Comment: ? Negative: ??<30.0 IU/mL ? Borderline Positive: ??30.0 - 75.0 IU/mL ? Positive: ??>75.0 IU/mL Results were obtained with the [employer] Lite dsDNA SC ZOEY assay on the [employer]. Blood VENOUS BLOOD / Unknown 05/24/2021 14:15 EST 05/24/2021 20:58 EST Provider Outr Resulting Lab IMMUNOLOGY A ND SEROLOGY ORDERABLES Performing Organization Address [facility] de Phone Number [facility] [address] [place] [address] * (ABNORMAL) ANTI NUCLEAR AB (CAITLIN), IFA (05/24/2021 14:15 EST) [facility] CAITLIN Interpretation Positive(A) Negative 05/25/2021 11:50 EST [facility] Comment: For titers greater than or equal to 1:160 (except the centromere and nucleolar patterns) it is recommended that specific follow-up autoantibody testing ??(such as for dsDNA and Extractable Nuclear Antigens) be performed on all diffuse and/or speckled patterns NOTE: For add-on testing dsDNA is stable for 7 days refrigerated while Extractable Nuclear Antigens are only stable for 48 hours refrigerated. CAITLIN Titer and Pattern 1 1:320 Homogeneous 05/25/2021 11:50 EST [facility] Blood VENOUS BLOOD / Unknown 05/24/2021 14:15 EST 05/24/2021 20:58 EST Narrative [facility] - 05/25/2021 11:50 EST Results were obtained with the [employer] N[employer] Lite HEp-2 CAITLIN Kit by indirect immunofluorescence. Provider Outr Resulting Lab IMMUNOLOGY A ND SEROLOGY ORDERABLES Performing Organization Address City/[facility]/ZIP Co de Phone Number [facility] [address] [place] [address] * CCP ANTIBODIES (05/24/2021 14:15 EST) CCP Antibodies <2.5 <5.0 U/mL 05/25/2021 9:54 EST [facility] Blood VENOUS BLOOD / Unknown 05/24/2021 14:15 EST 05/24/2021 20:58 EST Provider Outr Resulting Lab IMMUNOLOGY A ND SEROLOGY ORDERABLES Performing Organization Address City/[facility]/ZIP Co de Phone Number [facility] [address] [place] [phone] documented in this encounter Visit Diagnoses Not on filedocumented in this encounter Care Teams Showroom Sales Assistant Relationship Specialty Start Date End Date Devorah Epstein MD [address] [place] [phone] PCP - General 11/04/15 documented as of this encounter
--- OUTSIDE RECORDS SUMMARY | 2024-01-22 02:59 | XMS_ITS | Encounter Summary ---
Author Organization [facility] Address [address] [place] [address] Care Team Providers Care Human Resources District Manager Name Role Phone Devorah Epstein MD Primary Care Provider [phone] Encounter Details Date Type Department Care Team (Late st Contact Info) Description 03/23/2021 Lab Requisition [facility] Pathology & Laboratory Medicine - [address] [address] Outr Resulting Lab, Provider Social History Tobacco [...] Procedure Name Priority Date/Time Associated Diagnosis Comments IMMUNOGLOBULINS Routine 03/22/2021 14:23 EDT IGE Routine 03/22/2021 14:23 EDT documented in this encounter Results * IGE (03/22/2021 14:23 EDT) IgE 15 <158 IU/mL 03/24/2021 8:56 EDT [facility] Blood VENOUS BLOOD / Unknown 03/22/2021 14:23 EDT 03/23/2021 16:25 EDT Provider Outr Resulting Lab CHEMISTRY & BLOOD GAS ORDERABLES Performing Organization Address City/[facility] Co de Phone Number [facility] [address] [place] [address] * (ABNORMAL) IMMUNOGLOBULINS (03/22/2021 14:23 EDT) IgG 760 610-1,616 mg/dL 03/24/2021 9:22 EDT [facility] IgA 190 85 - 499 mg/dL 03/24/2021 9:22 EDT [facility] IgM 23(L) 35 - 242 mg/dL 03/24/2021 9:22 EDT [facility] Blood VENOUS BLOOD / Unknown 03/22/2021 14:23 EDT 03/23/2021 16:25 EDT Provider Outr Resulting Lab CHEMISTRY & BLOOD GAS ORDERABLES Performing Organization Address [facility] de Phone Number [facility] [address] [place] [address] documented in this encounter Visit Diagnoses Not on filedocumented in this encounter Care Teams Human Resources District Manager Relationship Specialty Start Date End Date Devorah Epstein MD [address] [place] [phone] PCP - General 11/04/15 documented as of this encounter
--- OUTSIDE RECORDS SUMMARY | 2024-01-22 02:59 | XMS_ITS | Encounter Summary ---
Author Organization [facility] Address [address] [place] [address] Care Team Providers Care Compliance Engineer Products Name Role Phone Devorah Epstein MD Primary Care Provider [phone] Encounter Details Date Type Department Care Team (Latest Contact Info) Description 04/15/2019 14:44 EDT - 04/15/2019 23:59 EDT Hospital Encounter [address] [address] Unknown, Provider, Discharge Disposition: Home or Self Care Social History Tobacco Use Types Packs/Day Years Used Date Smoking Tobacco: Never Smokeless Tobacco: Never Alcohol Use Standard Drinks/Week Comments No 0 (1 standard drink = 0.6 oz pur e alcohol) Sex and Gender Information Value Date Recorded Sex Assigned at Not on file Gender Identity Not on file Sexual Orientation Not on file documented as of this encounter Medications at Time of Discharge Medication Sig Dispensed Refills Start Date End Date acetaminophen (TYLENOL) 500 mg tablet Take 500 mg by mouth every 6 hours as needed for Pain. allopurinol (ZYLOPRIM) 100 mg tablet Take 200 mg by mouth daily. aspirin chewable 81 mg tablet Take 81 mg by mouth daily. bisoprolol fumarate (ZEBETA ORAL) Take 2.5 mg by mouth daily. chlorthalidone (HYGROTON) 25 mg tablet Take 25 mg by mouth daily. ergocalciferol, vitamin D2, (VITAMIN D ORAL) Take by mouth. glucosamine HCl (GLUCOSAMINE, BULK, MISC) by misc (non-drug; combo route) route. losartan (COZAAR) 25 mg tablet Take 25 mg by mouth daily. omeprazole (PRILOSEC) 20 mg capsule Take 20 mg by mouth daily. rosuvastatin (CRESTOR) 10 mg tablet Take 20 mg by mouth daily. selenium 100 mcg tablet Take 200 mcg by mouth daily. documented as of this encounter Discharge Disposition Disposition Code Departure Means Destination Home or Self [facility]dc documented in this encounter Plan of Treatment Not on file documented as of this encounter Visit Diagnoses Not on filedocumented in this encounter Care Teams Compliance Engineer Products Relationship Specialty Start Date End Date Devorah Epstein MD [address] [place] [phone] PCP - General 11/04/15 documented as of this encounter
--- OUTSIDE RECORDS SUMMARY | 2024-01-22 02:59 | XMS_ITS | Continuity of Care Document ---
Author Organization [facility] Address [address] [place] [address] Phone Care Team Providers Care Centrifugal Extractor Operator Name Role Phone CASSI Cabrera Primary Care Provider [phone] KAE Peres Attending Provider MD Tommy Leigh Attending Provider DAVID Muñiz Attending Provider James Su Attending Provider Unavailable QI Liu@([facility]) Attending Provider [phone] Care Teams Patient Care Team Team Status: [...] Team Status: Active Member Role Status Dates Henrique Cabrera PA Primary Care Provider Active Start: November 06, 2023 James Su Attending Provider Active Start: 2023 Visit Care Team Team Status: Inactive Member Role Status Dates CASSI Chaparro Primary Care Provi gavin, Referring Provider Active Start: November 08, 2023 End: November 08, 2023 Aye Mojica([facility]) QI Liu Attending Provider Active Start: November [...] November 22, 2023 End: November 22, 2023 Patient Care Team Team Status: Inactive Member Role Status Dates CASSI Chaparro Primary Care Provi gavin, Referring Provider Active Start: November 29, 2023 End: November 29, 2023 Marlin Peres DPM Attending Provider Active Start: November 29, 2023 End: November 29, 2023 Chief Complaint and Reason for Visit Chief Complaint new patient Chronic venous hypertension WOUND CARE wound care wound care wound care Amb Documentation wound care wound care wound care wound care Reason for Visit Chronic venous [...] daily Apri l 2023 12:00a m Tamsulosin Active 0.4 MG PO daily September 27, 2023 12:00a m Immunizations Immunization Event Date Not Given Reason Dose Number Search Marketing Specialist Lot Number Vaccine Information Statement (VIS) Detail Tdap (Boostrix, Adacel) February 01, 2012 Tdap (Boostrix, Adacel) September 16, 2023 *Pneumococcal Conjugate PCV 13 (Prevnar) October 07, 2015 *Zoster (Shingles), unspecified formulation November 29, 2012 *Pneumococcal Polysaccharide [id number] October 08, 2012 *Influenza, unspecified formulation April 04, 2018 *Influenza, unspecified formulation June 10, 2019 *Influenza, unspecified formulation March 22, 2017 *Influenza, unspecified formulation March 25, 2016 Vital Signs Vital Reading Result Reference Range Collection Date/Time Height 73 [in_i] October 09 2:21pm Weight 168.00 [lb_av] October 09 2:21pm Body Temperature 97.2 [degF] 97.6-99.6 October [...] 2:21pm Insurance Providers Guarantor SERGE MARKS Address [address] [place] [address] Contact Info. Home Phone: Payer Policy Id Coverage Id Subscriber's Name Subscriber Id Effective Date Expiration Date MEDICARE [id number] SERGE MARKS [id number] MEDIC[place]VANTAGE [place] [id number] SERGE MARKS [id number] [employer] [facility] [facility] [id number] SERGE MARKS [id number] Encounters Encounter Location(s) Arrival/Admit Date Discharge/Depart Date Provider(s) Departed Referred [facility] Wound Center October 04, 2023 12:57pm October 04, 2023 12:58pm Marlin Peres DPM Departed Physician/Prov ider Office Visit [facility] Practices[facility] General Surgery Office October 10, 2023 1:55pm October 10, 2023 11:59pm Tommy Leigh MD Departed Referred [facility] Wound Center October 11, 2023 1:01pm October 11, 2023 1:02pm Marlin Peres DPM Departed Referred [facility] [place] October 18, 2023 1:53pm October 18, 2023 1:54pm Marlin Peres DPM Departed Referred [facility] Wound [place] October 25, 2023 1:31pm October 25, 2023 1:32pm Marlin Peres DPM Departed Referred [facility] Wound [place] November 01, 2023 1:39pm November 01, 2023 1:40pm DAVID Palacios Non-patient / Non-visit [facility] Nonvisit November 06, 2023 1:44pm James Su Departed Referred [facility] November 08, 2023 1:14pm November 08, 2023 1:15pm Yovani Morales APRN Departed Referred [facility] Wound [place] November 15, 2023 1:22pm November 15, 2023 1:23pm Marlin Peres DPM Departed Referred [facility] Wound [place] November 22, 2023 1:27pm November 22, 2023 1:28pm Marlin Peres DPM Departed Referred [facility] Wound [place] November 29, 2023 1:24pm November 29, 2023 1:25pm Marlin Peres DPM Recent Diagnosis Onset Date Chronic venous hypertension (idiopathic) with ulcer of right lower extremity Assessments Diagnosis Onset Date Resolution Status Chronic venous hypertension (idiopathic) with ulcer of right lower extremity acute Plan of Treatment Author Tommy Leigh [facility] Authored October 10, 2023 3:3 5pm [...]
--- OUTSIDE RECORDS SUMMARY | 2024-01-22 02:59 | XMS_ITS | Continuity of Care Document ---
Author Organization [facility] Address [address] [place] [address] Phone Care Team Providers Care Director Insurance Name Role Phone CASSI Cabrera Primary Care Provider [phone] UNKNOWN Attending Provider Unavailable Lily Booth Attending Provider Unavailable KAE Peres Attending Provider MD Tommy Leigh Attending Provider DAVID Muñiz Attending Provider Care Teams Patient Care Team Team Status: Active Member Role Status Dates CASSI Chaparro Primary Care Provider Active Visit Care Team Team Status: Active Member Role Status Dates CASSI Chaparro Primary Care Provider Active Start: September 20, 2023 UNKNOWN Attending Provider Active Start: [facility] 2023 Visit Care Team Team Status: Active [...] October 25, 2023 End: October 25, 2023 Patient Care Team Team Status: Inactive Member Role Status Dates CASSI Chaparro Primary Care Provi gavin, Referring Provider Active Start: November 01, 2023 End: November 01, 2023 DAVID Mckeon Attending Provider Active Start: November 01, 2023 End: November 01, 2023 Chief Complaint and Reason for Visit Chief Complaint Amb Documentation new patient Chronic venous hypertension WOUND CARE wound care wound care wound care Reason [...] Reference Range Collection Date/Time Height 73 [in_i] [place] [address], 202 4 2:21pm Weight 168.00 [lb_av] October 09 2:21pm [...] 2:21pm Insurance Providers Guarantor SERGE MARKS Address [address] [place] [id number] Contact Info. Home Phone: Payer Policy Id Coverage Id Subscriber's Name Subscriber Id Effective Date Expiration Date MEDICARE [id number] SERGE MARKS [id number] [place] [id number] SERGE MARKS [id number] [employer] [id number] SERGE MARKS [id number] Encounters Encounter Location(s) Arrival/Admit Date Discharge/Depart Date Provider(s) Non-patient / Non-visit [facility] September 20, 2023 11:59pm Unknown Non-patient / Non-visit [facility] Nonvisit September 27, 2023 8:37am Lily Booth RN Departed Referred [facility] Wound Center October 04, 2023 12:57pm October 04, 2023 12:58pm Marlin Peres DPM Departed Physician/Prov ider Office Visit [facility] General Surgery Office October 10, 2023 1:55pm October 10, 2023 11:59pm Tommy Leigh MD Departed Referred [facility] Wound Center October 11, 2023 1:01pm October 11, 2023 1:02pm Marlin Peres DPM Departed Referred [facility] Wound Center October 18, 2023 1:53pm October 18, 2023 1:54pm Marlin Peres DPM Departed Referred [facility] Wound Center October 25, 2023 1:31pm October 25, 2023 1:32pm Marlin Peres DPM Departed Referred [facility] Wound Center November 01, 2023 1:39pm November 01, 2023 1:40pm DAVID Palacios Recent Diagnosis Onset Date Chronic venous hypertension (idiopathic) with ulcer of right lower extremity Assessments Diagnosis Onset Date Resolution Status Chronic venous hypertension (idiopathic) with ulcer of right lower extremity acute Plan of Treatment Author Tommy [facility] Authored October 10, 2023 3:3 5pm This [...]
--- OUTSIDE RECORDS SUMMARY | 2024-01-22 02:59 | XMS_ITS | Encounter Summary ---
Author Organization [facility] Address [address] [place] [address] Care Team Providers Care Radiation Safety Officer Name Role Phone Devorah Epstein MD Primary Care Provider [phone] Encounter Details Date Type Department Care Team (Late st Contact Info) Description 03/26/2021 Lab Requisition [facility] Pathology & Laboratory Medicine - [address] [address] Outr Resulting Lab, Provider Social History Tobacco [...] Procedure Name Priority Date/Time Associated Diagnosis Comments AFB CULTURE/SMEAR, OTHER Routine 03/25/2021 11:30 EDT documented in this encounter Results * AFB CULTURE/SMEAR, OTHER (03/25/2021 11:30 EDT) Organism ID No acid-fast bacilli isolated VITEK SUSCEPTIBILITY 05/24/2021 10:00 [facility] AFB Smear No Acid Fast Bacilli Seen 05/24/2021 10:00 [facility] Sputum COLLECTION OF INDUCED SPUTUM / Unknown 03/25/2021 11:30 EDT 03/26/2021 18:46 EDT Provider Outr Resulting Lab MICROBIOLOGY - GENERAL ORDERABLES [facility] [address] [place] [address] documented in this encounter Visit Diagnoses Not on filedocumented in this encounter Care Teams Radiation Safety Officer Relationship Specialty Start Date End Date Devorah Epstein MD [address] [place] [phone] PCP - General 11/04/15 documented as of this encounter
--- OUTSIDE RECORDS SUMMARY | 2024-01-22 02:59 | XMS_ITS | Encounter Summary ---
Author Organization [facility] Address [address] [place] [address] Care Team Providers Care Hairpiece Stylist Name Role Phone Devorah Epstein MD Primary Care Provider [phone] Encounter Details Date Type Department Care Team (Late st Contact Info) Description 07/04/2022 Lab Requisition [facility] Pathology & Laboratory Medicine - [address] [address] Outr Resulting Lab, Provider Social History Tobacco [...] Procedure Name Priority Date/Time Associated Diagnosis Comments PSA TOTAL, DIAGNOSTIC Routine 07/04/2022 11:15 EST documented in this encounter Results * PSA TOTAL, DIAGNOSTIC (07/04/2022 11:15 EST) PSA 2.4 <=6.5 ng/mL 07/04/2022 22:58 EST [facility] Blood VENOUS BLOOD / Unknown 07/04/2022 11:15 EST 07/04/2022 17:01 EST Narrative [facility] - 07/04/2022 22:58 EST NOTE: Serum PSA concentration should not be interpreted as absolute evidence for the presence or absence of malignant disease. Assayed on Siemens ADVIA Refined Labsaur XPT using chemiluminescent technology.??Values obtained by using different assay methods cannot be used interchangeably. Provider Outr Resulting Lab CHEMISTRY & BLOOD GAS ORDERABLES [facility] [address] [place] [address] documented in this encounter Visit Diagnoses Not on filedocumented in this encounter Care Teams Hairpiece Stylist Relationship Specialty Start Date End Date Devorah Epstein MD [address] [place] [phone] PCP - General 11/04/15 documented as of this encounter
--- OUTSIDE RECORDS SUMMARY | 2024-01-22 02:59 | XMS_ITS | Clinical Summary ---
Author Organization [facility] Address [address] [place] [address] Care Team Providers Care Equipment Operating Engineer Name Role Phone Devorah Epstein MD Primary Care Provider [phone] Allergies Active Allergy Reactions Criticality Noted Date [...] Date NSTEMI (non-ST elevated myocardial infarction) ( [facility]) 02/07/2018 MALCOM on CPAP 02/07/2018 Hypertension 02/07/2018 Polycystic kidney disease 02/07/2018 CAD (coronary artery disease) 02/07/2018 Elevated troponin 02/07/2018 Encounters Date Type Department Care Team Description 12/03/[address] [facility] Pathology & Laboratory Medicine [address] [address] Outr Resulting Lab, Provider from Last 3 Months Surgical History Surgery Date Site/Laterality Comments CORONARY ARTERY BYPASS GRAFT ROTATOR CUFF REPAIR Bilateral Medical History Medical History Date Comments Gout Hypertension GERD (gastroesophageal reflux disease) Diverticulitis Social History Tobacco Use Types Packs/Day Years [...] on file Sexual Orientation Not on file Obstetrics History Last Filed Vital Signs Vital Sign Reading Time Taken Comments Blood Pressure 129/71 02/07/2018 0821 EDT Pulse - - Temperature 36.9 ??C (98.4 ??F) 02/07/2018 0821 EDT Respiratory Rate 18 02/07/2018 0832 EDT Oxygen Saturation 96% 02/07/2018 0821 EDT Inhaled Oxygen Concentration - - Weight 125.2 kg (276 lb) 02/07/2018 0417 EDT Height 182.9 cm (6') 02/07/2018 0417 EDT Body Mass Index 37.43 02/07/2018 0417 EDT Plan of Treatment Health Maintenance Due Date Last Done Comments RSV Immunization ( o r 60+ Years) (1 - 1-dose 60+ series) 2000 Fall Risk Screening 2005 COVID-19 Vaccine ( season) 2023 Procedures Procedure Name Priority Date/Time Associated Diagnosis Comments LYME AB Routine 12/02/2023 15:25 EDT from Last 3 Months Results * LYME AB (12/02/2023 15:25 EDT) Lyme Ab Negative Negative 12/04/2023 10:26 EDT [facility] Blood VENOUS BLOOD / Unknown 12/02/2023 15:25 EDT 12/03/2023 15:46 EDT Provider Outr Resulting Lab IMMUNOLOGY A ND SEROLOGY ORDERABLES [facility] [address] [place], [place] [address] from Last 3 Months Advance Directives For more information, please contact: [phone] * Full Code (Latest Code Status on File) Date Activated Date Inactivated Comments 02/07/2018 4:31 02/07/2018 17:44 Question Answer Comments Reason for decision includes: Full code consistent with overall plan of care Who participated in the discussion? Not Discusse d Care Teams Equipment Operating Engineer Relationship Specialty Start Date End Date Devorah Epstein MD [address] [place] [phone] PCP - General 11/04/15
--- OUTSIDE RECORDS SUMMARY | 2024-01-22 02:59 | XMS_ITS | Continuity of Care Document ---
Author Organization [facility] Address [address] [place] [address] Phone Care Team Providers Care Medication Technician Name Role Phone CASSI Cabrera Primary Care Provider UNKNOWN Attending Provider Unavailable Lily Booth Attending Provider Unavailable KAE Peres Attending Provider MD Tommy Leigh Attending Provider Care Teams Patient Care Team Team Status: Active Member Role Status Dates CASSI Chaparro Primary Care Provider Active Visit Care Team Team Status: Active Member Role Status Dates CASSI Chaparro Primary Care Provider Active Start: September 20, 2023 UNKNOWN Attending Provider Active Start: [facility] 2023 Visit Care Team [...] October 10, 2023 End: October 10, 2023 Patient Care Team Team Status: Inactive Member Role Status Dates CASSI Chaparro Primary Care Provi gavin, Referring Provider Active Start: October 11, 2023 End: October 11, 2023 Marlin Peres DPM Attending Provider Active Start: October 11, 2023 End: October 11, 2023 Chief Complaint and Reason for Visit Chief Complaint Amb Documentation new patient Chronic venous hypertension WOUND CARE Reason for Visit Chronic venous hyper tension [...] 2:21pm Insurance Providers Guarantor SERGE MARKS Address [address] [place] [address] Contact Info. Home Phone: Payer Policy Id Coverage Id Subscriber's Name Subscriber Id Effective Date Expiration Date MEDICARE [id number] SERGE ELISTAN [id number] [place]AGE [place] [id number] SERGE MARKS [id number] [facility] [id number] SERGE MARKS [id number] Encounters Encounter Location(s) Arrival/Admit Date Discharge/Depart Date Provider(s) Non-patient / Non-visit [facility] September 20, 2023 11:59pm Unknown Non-patient / Non-visit [facility] Nonvisit September 27, 2023 8:37am Lily Booth RN Departed Referred [facility] Wound Center October 04, 2023 12:57pm October 04, 2023 12:58pm Marlin Peres DPM Departed Physician/Prov ider Office Visit [facility] General Surgery Office October 10, 2023 1:55pm October 10, 2023 11:59pm Tommy Leigh MD Departed Referred [facility] Wound Center October 11, 2023 1:01pm October 11, 2023 1:02pm Marlin Peres DPM Recent Diagnosis Onset Date Chronic venous hypertension (idiopathic) with ulcer of right lower extremity Assessments Diagnosis Onset Date Resolution Status Chronic venous hypertension (idiopathic) with ulcer of right lower extremity acute Plan of Treatment Author Tommy Leigh [facility] Authored October 10, 2023 3:3 5pm [...]
--- OUTSIDE RECORDS SUMMARY | 2024-01-22 02:59 | XMS_ITS | Encounter Summary ---
Author Organization [facility] Address [address] [place] [address] Care Team Providers Care Gear Grinding Machine Operator Name Role Phone Devorah Epstein MD Primary Care Provider [phone] Encounter Details Date Type Department Care Team (Late st Contact Info) Description 12/03/2023 Lab Requisition [facility] Pathology & Laboratory Medicine - [address] [address] Outr Resulting Lab, Provider Social History Tobacco [...] Comments LYME AB Routine 12/02/2023 15:25 EDT documented in this encounter Results * LYME AB (12/02/2023 15:25 EDT) Lyme Ab Negative Negative 12/04/2023 10:26 EDT [facility] Blood VENOUS BLOOD / Unknown 12/02/2023 15:25 EDT 12/03/2023 15:46 EDT Provider Outr Resulting Lab IMMUNOLOGY A ND SEROLOGY ORDERABLES [facility] [address] [place] [address] documented in this encounter Visit Diagnoses Not on filedocumented in this encounter Care Teams Gear Grinding Machine Operator Relationship Specialty Start Date End Date Devorah Epstein MD [address] [place] [phone] PCP - General 11/04/15 documented as of this encounter
--- OUTSIDE RECORDS SUMMARY | 2024-01-22 02:59 | XMS_ITS | Continuity of Care Document ---
Author Organization [facility] Address [address] [place] [address] Phone Care Team Providers Care Water Proofer Name Role Phone CASSI Cabrera Primary Care Provider UNKNOWN Attending Provider Unavailable Lily Booth Attending Provider Unavailable KAE Peres Attending Provider Care Teams Patient Care Team Team Status: Active Member Role Status Dates CASSI Chaparro Primary Care Provider Active Patient Care Team Team Status: Active Member Role Status Dates CASSI Chaparro Primary Care Provider Active Start: September 20, 2023 UNKNOWN Attending Provider Active Start: [facility] 2023 Patient Care Team Team Status: Active Member Role Status Dates CASSI Chaparro Primary Care Provider Active Start: September 27, 2023 Lily Booth Attending Provider Active Start: September 27, 2023 Patient Care Team Team Status: Inactive Member Role Status Dates CASSI Chaparro Primary Care Provi gavin, Referring Provider Active Start: October 04, 2023 End: October 04, 2023 Marlin Peres DPM Attending Provider Active Start: October 04, 2023 End: October 04, 2023 Chief Complaint and Reason for Visit Chief Complaint Amb Documentation new patient Allergies, Adverse Reactions, Alerts No known allergies [...] days Levofloxacin Active 750 MG PO daily Apr l 2023 12:00a m Dextromethorphan- Guaifenesin (Mucinex Dm) 60-1,200 mg tablet extended release 12 hr Active 1 TAB PO Q12H September 27, 2023 12:00a m Omeprazole Active 20 MG PO daily September 27, 2023 12:00a m Rosuvastatin Active 20 MG PO daily Sepi 2023 12:00a m Tamsulosin Active 0.4 MG PO daily September 27, 2023 12:00a m Insurance Providers Guarantor SERGE MARKS Address [address] [place] [address] Contact Info. Home Phone: Payer Policy Id Coverage Id Subscriber's Name Subscriber Id Effective Date Expiration Date MEDICARE [id number] SERGE MARKS [id number] [place] [id number] SERGE MARKS [id number] [facility] [id number] SERGE MARKS [id number] Encounters Encounter Location(s) Arrival/Admit Date Discharge/Depart Date Provider(s) Non-patient / Non-visit [facility] September 20, 2023 11:59pm Unknown Non-patient / Non-visit [facility] Nonvisit September 27, 2023 8:37am Lily Booth RN Departed Referred [facility] Wound Center October 04, 2023 12:57pm October 04, 2023 12:58pm Marlin Peres DPM
--- OUTSIDE RECORDS SUMMARY | 2024-01-22 02:59 | XMS_ITS | Continuity of Care Document ---
Author Organization [facility] Address [address] [place] [address] Phone Care Team Providers Care Senior Vice President Name Role Phone CASSI Cabrera Primary Care Provider [phone] KAE Peres Attending Provider Lily Booth Attending [...] January 03, 2024 End: January 03, 2024 Visit Care Team Team Status: Inactive Member Role Status Dates CASSI Chaparro Primary Care Provi gavin, Referring Provider Active Start: January 10, 2024 End: January 10, 2024 Marlin Peres DPM Attending Provider Active Start: January 10, 2024 End: January 10, 2024 Patient Care Team Team Status: Inactive Member Role Status Dates CASSI Chaparro Primary Care Provi gavin, Referring Provider Active Start: January 17, 2024 End: January 17, 2024 Marlin Peres DPM Attending Provider Active Start: January 17, 2024 End: January 17, 2024 Chief Complaint and Reason for Visit [...] Event Date Not Given Reason Dose Number Civil Cad Designer Lot Number Vaccine Information Statement (VIS) Detail Tdap (Boostrix, Adacel) February 01, 2012 Tdap (Boostrix, Adacel) September 16, 2023 *Pneumococcal Conjugate PCV 13 (Prevnar) October 07, 2015 *Zoster (Shingles), unspecified formulation November 29, 2012 *Pneumococcal Polysaccharide [id number] October 08, 2012 *Influenza, unspecified formulation April 04, 2018 *Influenza, unspecified formulation June 10, 2019 *Influenza, unspecified formulation March 22, 2017 *Influenza, unspecified formulation March 25, 2016 Insurance Providers Guarantor SERGE MARKS Address [address] [place] [address] Contact Info. Home Phone: Payer Policy Id Coverage Id Subscriber's Name Subscriber Id Effective Date Expiration Date MEDICARE [id number] SERGE MARKS [id number] MEDICARE ADVANTAGE [place] [id number] SERGE MARKS [id number] UNITED [employer] [id number] SERGE MARKS [id number] Encounters Encounter Location(s) Arrival/Admit Date Discharge/Depart Date Provider(s) [facility] November 22, 2023 1:27pm November 22, 2023 1:28pm Marlin Peres DPM Departed Referred [facility] [place] November 29, 2023 1:24pm November 29, 2023 1:25pm Marlin Peres DPM Non-patient / Non-visit [facility] Nonvisit December 13, 2023 8:43am Lily Booth RN Departed Referred [facility] [place] December 13, 2023 12:55pm December 13, 2023 12:56pm Marlin Peres DPM Departed Referred [facility] [place] December 20, 2023 1:01pm December 20, 2023 1:02pm Marlin Peres DPM Departed Referred [facility] [place] December 27, 2023 12:59pm December 27, 2023 1:00pm Marlin Peres DPM Departed Referred [facility] [place] January 03, 2024 1:07pm January 03, 2024 1:08pm Marlin Peres DPM Departed Referred [facility] [place] January 10, 2024 1:11pm January 10, 2024 1:12pm Marlin Peres DPM Departed Referred [facility] [place] January 17, 2024 1:05pm January 17, 2024 1:06pm Marlin Peres DPM
--- OUTSIDE RECORDS SUMMARY | 2024-01-22 02:59 | XMS_ITS | Encounter Summary ---
Author Organization [facility] Address [address] [place] [address] Care Team Providers Care Bread Pan Greaser Name Role Phone Devorah Epstein MD Primary Care Provider [phone] Encounter Details Date Type Department Care Team (Late st Contact Info) Description 03/24/2021 Lab Requisition [facility] Pathology & Laboratory Medicine - [address] [address] Outr Resulting Lab, Provider Social History Tobacco [...] Associated Diagnosis Comments AFB CULTURE/SMEAR, OTHER Routine 03/24/2021 10:40 EDT documented in this encounter Results * AFB CULTURE/SMEAR, OTHER (03/24/2021 10:40 EDT) Organism ID No acid-fast bacilli isolated [facility] SUSCEPTIBILITY 05/19/2021 13:29 [facility] AFB Smear No Acid Fast Bacilli Seen 05/19/2021 13:29 [facility] Sputum COLLECTION OF INDUCED SPUTUM / Unknown 03/24/2021 10:40 EDT 03/24/2021 22:23 EDT Provider Outr Resulting Lab MICROBIOLOGY - GENERAL ORDERABLES [facility] [address] [place] [address] documented in this encounter Visit Diagnoses Not on filedocumented in this encounter Care Teams Bread Pan Greaser Relationship Specialty Start Date End Date Devorah Epstein MD [address] [place] [phone] PCP - General 11/04/15 documented as of this encounter
--- OUTSIDE RECORDS SUMMARY | 2024-01-22 02:59 | XMS_ITS | Continuity of Care Document ---
Author Organization [facility] Address [address] [place] [address] Phone Care Team Providers Care Bridge Game Director Name Role Phone CASSI Cabrera Primary Care Provider Lily Booth Attending Provider Unavailable KAE Peres Attending Provider MD Tommy Leigh Attending Provider DAVID Muñiz Attending Provider James Su Attending Provider Unavailable [email or web address]([facility]) Attending Provider Care Teams Patient Care [...] Inactive Member Role Status Dates Henrique Cabrera PA Primary Care Provi gavin, Referring Provider Active Start: October 18, 2023 End: October 18, 2023 Marlin Peres DPM Attending Provider Active Start: October 18, 2023 End: October 18, 2023 Visit Care Team Team Status: Inactive Member Role Status Dates Henrique Cabrera PA Primary Care Provi gavin, Referring Provider Active Start: October 25, 2023 End: October 25, 2023 Marlin Peres DPM Attending Provider Active Start: October 25, 2023 End: October 25, 2023 Visit Care Team Team Status: Inactive Member Role Status Dates Henrique Cabrera PA Primary Care Provi gavin, Referring Provider [...] 08, 2023 End: November 08, 2023 Aye Mojica([facility] APRN Attending Provider Active Start: November 08, 2023 End: November 08, 2023 Visit Care Team Team Status: Inactive Member Role Status Dates CASSI Chaparro Primary Care Provi gavin, Referring Provider Active Start: November 15, 2023 End: November 15, 2023 Marlin Peres DPM Attending Provider Active Start: November 15, 2023 End: November 15, 2023 Patient Care Team Team Status: Inactive Member Role Status Dates CASSI Chaparro Primary Care Provi gavin, Referring Provider Active Start: November 22, 2023 End: November 22, 2023 Marlin Peres DPM Attending Provider Active Start: November 22, 2023 End: November 22, 2023 Chief Complaint and Reason for Visit Chief Complaint Amb Documentation new patient Chronic venous hypertension WOUND CARE wound care wound care wound care Amb Documentation wound care wound care wound care Reason [...] days Levofloxacin Active 750 MG PO daily Apri l 2023 12:00a m Dextromethorphan- Guaifenesin (Mucinex [...] Event Date Not Given Reason Dose Number Pipe Processor Lot Number Vaccine Information Statement (VIS) Detail Tdap (Boostrix, Adacel) February 01, 2012 Tdap (Boostrix, Adacel) September 16, 2023 *Pneumococcal Conjugate PCV 13 (Prevnar) October 07, 2015 *Zoster (Shingles), unspecified formulation November 29, 2012 *Pneumococcal Polysaccharide [id number] October 08, 2012 *Influenza, unspecified formulation April [...] 2:21pm Insurance Providers Guarantor SERGE MARKS Address [address] [place] [address] Contact Info. Home Phone: Payer Policy Id Coverage Id Subscriber's Name Subscriber Id Effective Date Expiration Date MEDICARE [id number] SERGE MARKS [id number] [place]IC[place]VANTAGE [place] [id number] SERGE MARKS [id number] [facility] [id number] SERGE MARKS [id number] Encounters Encounter Location(s) Arrival/Admit Date Discharge/Depart Date Provider(s) Non-patient / Non-visit [facility] Nonvisit September 27, 2023 8:37am Lily Booth RN Departed Referred [facility] October 04, 2023 12:57pm October 04, 2023 12:58pm Marlin Peres DPM Departed Physician/Prov ider Office Visit [facility] General Surgery Office October 10, 2023 1:55pm October 10, 2023 11:59pm Tommy Leigh MD Departed Referred [facility] October 11, 2023 1:01pm October 11, 2023 1:02pm Marlin Peres DPM Departed Referred [facility] [place] October 18, 2023 1:53pm October 18, 2023 1:54pm Marlin Peres DPM Departed Referred [facility] [place] October 25, 2023 1:31pm October 25, 2023 1:32pm Marlin Peres DPM Departed Referred [facility] [place] November 01, 2023 1:39pm November 01, 2023 1:40pm DAVID Palacios Non-patient / Non-visit [facility] Nonvisit November 06, 2023 1:44pm James Su Departed Referred [facility] November 08, 2023 1:14pm November 08, 2023 1:15pm Yovani Morales APRN Departed Referred [facility] November 15, 2023 1:22pm November 15, 2023 1:23pm Marlin Peres DPM Departed Referred [facility] [place] November 22, 2023 1:27pm November 22, 2023 1:28pm Marlin Peres DPM Recent Diagnosis Onset Date Chronic venous hypertension (idiopathic) with ulcer of right lower extremity Assessments Diagnosis Onset Date Resolution Status Chronic venous hypertension (idiopathic) with ulcer of right lower extremity acute Plan of Treatment Author [facility] Authored October 10, 2023 3:3 5pm [...]
--- OUTSIDE RECORDS SUMMARY | 2024-01-22 02:59 | XMS_ITS | Encounter Summary ---
Author Organization [facility] Address [address] [place] [address] Care Team Providers Care Photonics Engineering Technologist Name Role Phone Devorah Epstein MD Primary Care Provider [phone] Reason for Visit * Reason Onset Date Comments Other 02/09/2018 Encounter Details Date Type Department Care Team (Late st Contact Info) Description 02/09/2018 Telephone [facility] Cardiology - [address] [place] [address] Sergei Cristobal MD [address] [place] [address] [address] [place] [address] Other Social History Tobacco Use Types Packs/Day Years Used Date Smoking Tobacco: Never Smokeless Tobacco: Never Alcohol Use Standard Drinks/Week Comments No 0 (1 standard drink = 0.6 oz pur e alcohol) Sex and Gender Information Value Date Recorded Sex Assigned at Not on file Gender Identity Not on file Sexual Orientation Not on file documented as of this encounter Miscellaneous Notes * Telephone Encounter - Amparo Sim RN - 02/09/2018 0911 EDT Noted. Thanks AMPARO SIM RN * Telephone Encounter - JadeSahra - 02/09/[address] Gerald Caceres's office received 3 faxes for office notes on this patient. She wanted to alert whomever sent it over as this is not a Patient at there office. She states the office notes came from Dr. Blanc's office. documented in this encounter Plan of Treatment Not on file documented as of this encounter Visit Diagnoses Not on filedocumented in this encounter Care Teams Photonics Engineering Technologist Relationship Specialty Start Date End Date Devorah Epstein MD [address] [place] [phone] PCP - General 11/04/15 documented as of this encounter
--- OUTSIDE RECORDS SUMMARY | 2024-01-22 02:59 | XMS_ITS | Continuity of Care Document ---
Author Organization [facility] Address [address] [place] [address] Phone Care Team Providers Care Drum Filler Name Role Phone CASSI Cabrera Primary Care Provider UNKNOWN Attending Provider Unavailable Lily Booth Attending Provider Unavailable KAE Peres Attending Provider MD Tommy Leigh Attending Provider [phone] Care Teams Patient Care Team Team Status: Active Member Role Status Dates CASSI Chaparro Primary Care Provider Active Visit Care Team Team Status: Active Member Role Status Dates CASSI Chaparro Primary Care Provider Active Start: September 20, 2023 UNKNOWN Attending Provider Active Start: [facility] 2023 Visit Care Team Team Status: [...] October 18, 2023 End: October 18, 2023 Patient Care Team Team Status: Inactive Member Role Status Dates CASSI Chaparro Primary Care Provi gavin, Referring Provider Active Start: October 25, 2023 End: October 25, 2023 Marlin Peres DPM Attending Provider Active Start: October 25, 2023 End: October 25, 2023 Chief Complaint and Reason for Visit Chief Complaint Amb Documentation new patient Chronic venous hypertension WOUND CARE wound care wound care Reason for Visit [...] Insurance Providers Guarantor SERGE MARKS Address [address] [facility] [address] Contact Info. Home Phone: Payer Policy Id Coverage Id Subscriber's Name Subscriber Id Effective Date Expiration Date MEDICARE [id number] SERGE MARKS [id number] [place]IC[place]VANTAGE [place] [id number] SERGE MARKS [id number] UNITED [place] [employer] [id number] SERGE MARKS [id number] Encounters Encounter Location(s) Arrival/Admit Date Discharge/Depart Date Provider(s) Non-patient / Non-visit [facility] September 20, 2023 11:59pm Unknown Non-patient / Non-visit [facility] Nonvisit September 27, 2023 8:37am Lily Booth RN Departed Referred [facility] [place] October 04, 2023 12:57pm October 04, 2023 12:58pm Marlin Peres DPM Departed Physician/Prov ider Office Visit [facility] General Surgery Office October 10, 2023 1:55pm October 10, 2023 11:59pm Tommy Leigh MD Departed Referred [facility] [place] October 11, 2023 1:01pm October 11, 2023 1:02pm Marlin Peres DPM Departed Referred [facility] [place] October 18, 2023 1:53pm October 18, 2023 1:54pm Marlin Peres DPM Departed Referred [facility] [place] October 25, 2023 1:31pm October 25, 2023 1:32pm Marlin Peres DPM Recent Diagnosis Onset Date Chronic venous hypertension (idiopathic) with ulcer of right lower extremity Assessments Diagnosis Onset Date Resolution Status Chronic venous hypertension (idiopathic) with ulcer of right lower extremity acute Plan of Treatment Author Tommy Leigh [facility] Authored October 10, 2023 3:3 5pm This [...]
--- OUTSIDE RECORDS SUMMARY | 2024-01-22 02:59 | XMS_ITS | Continuity of Care Document ---
Author Organization [facility] Address [address] [place] [address] Phone Care Team Providers Care Real Estate Investment Analyst Name Role Phone CASSI Cabrera Primary Care Provider [phone] KAE Peres Attending Provider DAVID Muñiz Attending Provider James Su Attending Provider Unavailable [email or web address]([email or web address]) Attending Provider Lily Booth Attending Provider Unavailable [...] Team Status: Inactive Member Role Status Dates ACSSI Chaparro Primary Care Provi gavin, Referring Provider Active Start: November 01, 2023 End: November 01, 2023 DAVID Mckeon Attending Provider Active Start: November 01, 2023 End: November 01, 2023 Visit Care Team Team Status: Active Member Role Status Dates CASSI Chaparro Primary Care Provider Active Start: November 06, 2023 James Su Attending Provider Active Start: Ame yo 2023 Visit Care Team Team Status: Inactive Member Role Status Dates CASSI Chaparro Primary Care Provi gavin, Referring Provider Active Start: November 08, 2023 End: November 08, 2023 Aye Mojica([facility]) QI Liu Attending Provider Active Start: [...] November 29, 2023 End: November 29, 2023 Patient Care Team Team Status: Active Member Role Status Dates CASSI Chaparro Primary Care Provider Active Start: December 13, 2023 Lily Booth Attending Provider Active Start: December 13, 2023 Patient Care Team Team Status: Inactive Member Role Status Dates CASSI Chaparro Primary Care Provi gavin, Referring Provider Active Start: December 13, 2023 End: December 13, 2023 Marlin Peres DPM Attending Provider Active Start: December 13, 2023 End: December 13, 2023 Chief Complaint and Reason for Visit Chief Complaint wound care wound care wound care Amb Documentation wound care wound care wound care wound care Amb Documentation wound care Allergies, Adverse Reactions, Alerts No [...] Event Date Not Given Reason Dose Number Oyster Buyer Lot Number Vaccine Information Statement (VIS) Detail Tdap (Boostrix, Adacel) February 01, 2012 Tdap (Boostrix, Adacel) September 16, 2023 *Pneumococcal Conjugate PCV 13 (Prevnar) October 07, 2015 *Zoster (Shingles), unspecified formulation November 29, 2012 *Pneumococcal Polysaccharide [id number] October 08, 2012 *Influenza, unspecified formulation April 04, 2018 *Influenza, unspecified formulation June 10, 2019 *Influenza, unspecified formulation March 22, 2017 *Influenza, unspecified formulation March 25, 2016 Insurance Providers Guarantor SERGE MARKS Address [address] [facility] [address] Contact Info. Home Phone: Payer Policy Id Coverage Id Subscriber's Name Subscriber Id Effective Date Expiration Date MEDICARE [id number] SERGE MARKS [id number] MEDICARE [place]VANTAGE [place] [id number] SERGE MARKS [id number] [facility] [id number] SERGE MARKS [id number] Encounters Encounter Location(s) Arrival/Admit Date Discharge/Depart Date Provider(s) Departed Referred [facility] [place] October 18, 2023 1:53pm October 18, 2023 1:54pm Marlin Peres DPM Departed Referred [facility] [place] October 25, 2023 1:31pm October 25, 2023 1:32pm Marlin Peres DPM Departed Referred [facility] November 01, 2023 1:39pm November 01, 2023 1:40pm DAVID Palacios Non-patient / Non-visit [facility] Nonvisit November 06, 2023 1:44pm James Su Departed Referred [facility] November 08, 2023 1:14pm November 08, 2023 1:15pm Yovani Morales APRN Departed Referred [facility] November 15, 2023 1:22pm November 15, 2023 1:23pm Marlin Peres DPM Departed Referred [facility] November 22, 2023 1:27pm November 22, 2023 1:28pm Marlin Peres DPM Departed Referred [facility] [place] November 29, 2023 1:24pm November 29, 2023 1:25pm Marlin Peres DPM Non-patient / Non-visit [facility] Nonvisit December 13, 2023 8:43am Lily Booth RN Departed Referred [facility] December 13, 2023 12:55pm December 13, 2023 12:56pm Marlin Peres DPM
--- OUTSIDE RECORDS SUMMARY | 2024-01-22 02:59 | XMS_ITS | Continuity of Care Document ---
Author Organization [facility] Address [address] [place] [address] Phone Care Team Providers Care Story Editor Name Role Phone CASSI Cabrera Primary Care Provider [phone] UNKNOWN Attending Provider Unavailable Lily Booth Attending Provider Unavailable KAE Peres Attending Provider MD Tommy Leigh Attending Provider DAVID Muñiz Attending Provider James Su Attending Provider Unavailable [email or web address]) Attending Provider Care Teams Patient Care Team Team Status: Active Member Role Status Dates CASSI Chaparro Primary Care Provider Active Visit Care Team Team Status: Active Member Role Status Dates CASSI Chaparro Primary Care Provider Active Start: September 20, 2023 UNKNOWN Attending Provider Active Start: [facility] 2023 Visit Care Team [...] Active Member Role Status Dates Henrique Cabrera , PA Primary Care Provider Active Start: November 06, 2023 James Su Attending Provider Active Start: Ame yo 2023 Visit Care Team Team Status: Inactive Member Role Status Dates Henrique Cabrera PA Primary Care Provi gavin, Referring Provider Active Start: November 08, 2023 End: November 08, 2023 Aye Mojica([facility] APRN Attending Provider Active Start: November 08, 2023 End: November 08, 2023 Patient Care Team Team Status: Inactive Member Role Status Dates Henrique Cabrera , PA Primary Care Provi gavin, Referring Provider Active Start: November 15, 2023 End: November 15, 2023 Marlin Peres DPM Attending Provider Active Start: November 15, 2023 End: November 15, 2023 Chief Complaint and Reason for Visit Chief Complaint Amb Documentation new patient Chronic venous hypertension WOUND CARE wound care wound care wound care Amb Documentation wound care wound care Reason for Visit [...] Event Date Not Given Reason Dose Number Program Supervisor Lot Number Vaccine Information Statement (VIS) Detail Tdap (Boostrix, Adacel) February 01, 2012 Tdap (Boostrix, Adacel) September 16, 2023 *Pneumococcal Conjugate PCV 13 (Prevnar) October 07, 2015 *Zoster (Shingles), unspecified formulation November 29, 2012 *Pneumococcal Polysaccharide [id number] October 08, 2012 *Influenza, unspecified formulation April [...] 2:21pm Insurance Providers Guarantor SERGE MARKS Address [address] [place] [address] Contact Info. Home Phone: Payer Policy Id Coverage Id Subscriber's Name Subscriber Id Effective Date Expiration Date MEDICARE [id number] SERGE MARKS [id number] MEDIC[place]VANTAGE [place] [id number] SERGE MARKS [id number] [place] [facility] [id number] SERGE MARKS [id number] Encounters Encounter Location(s) Arrival/Admit Date Discharge/Depart Date Provider(s) Non-patient / Non-visit [facility] September 20, 2023 11:59pm Unknown Non-patient / Non-visit [facility] Nonvisit September 27, 2023 8:37am Lily Booth RN Departed Referred [facility] October 04, 2023 12:57pm October 04, 2023 12:58pm Marlin Peres DPM Departed Physician/Prov ider Office Visit [facility] General Surgery Office October 10, 2023 1:55pm October 10, 2023 11:59pm Tommy Leigh MD Departed Referred [facility] October 11, 2023 1:01pm October 11, 2023 1:02pm Marlin Peres DPM Departed Referred [facility] October 18, 2023 1:53pm October 18, 2023 1:54pm Marlin Peres DPM Departed Referred [facility] [place] October 25, 2023 1:31pm October 25, 2023 1:32pm Marlin Peres DPM Departed Referred [facility] [place] November 01, 2023 1:39pm November 01, 2023 1:40pm DAVID Palacios Non-patient / Non-visit [facility] Nonvisit November 06, 2023 1:44pm James Su Departed Referred [facility] [place] November 08, 2023 1:14pm November 08, 2023 1:15pm Yovani Morales APRN Departed Referred [facility] [place] November 15, 2023 1:22pm November 15, 2023 1:23pm Marlin Peres DPM Recent Diagnosis Onset Date Chronic venous hypertension (idiopathic) with ulcer of right lower extremity Assessments Diagnosis Onset Date Resolution Status Chronic venous hypertension (idiopathic) with ulcer of right lower extremity acute Plan of Treatment Author Tommy Leigh [facility] Authored October 10, 2023 3:3 5pm [...]
--- OUTSIDE RECORDS SUMMARY | 2024-01-22 02:59 | XMS_ITS | Encounter Summary ---
Author Organization [facility] Address [address] [place] [address] Care Team Providers Care Scarfing Machine Operator Name Role Phone Devorah Epstein MD Primary Care Provider [phone] Encounter Details Date Type Department Care Team (Late st Contact Info) Description 03/26/2021 Lab Requisition [facility] Pathology & Laboratory Medicine - [address] [address] Outr Resulting Lab, Provider Social History Tobacco [...] Procedure Name Priority Date/Time Associated Diagnosis Comments CULTURE REFERRED FOR ID, MYCOBACTERIUM Today 03/26/2021 11:15 EDT AFB CULTURE/SMEAR, OTHER Today 03/26/2021 11:15 EDT documented in this encounter Results * (ABNORMAL) CULTURE REFERRED FOR ID, MYCOBACTERIUM (03/26/2021 11:15 EDT) Mycobacteria Culture Referred for ID SEE NOTE(A) 05/06/2021 13:41 EST [facility] Comment: SOURCE: SPUTUM, Sputum- slow growing gram positive bacilli, kinyoun positive, clear and colorless colonies on 7H11 agar CULTURE REFER FOR ID, MYCOBACTERIUM ?FINAL ??MYCOBACTERIUM AVIUM COMPLEX ?? Test Performed by: [facility] [address] [facility], [place] [address] Linen Room Supervisor: Tommy Kurtz M.D. 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 05/24/2021 10:01 EST [facility] Comment:Assayed by [facility], [place], [place] AFB Smear No Acid Fast Bacilli Seen 05/24/2021 10:01 EST [facility] Sputum COLLECTION OF INDUCED SPUTUM / Unknown 03/26/2021 11:15 EDT 03/26/2021 22:31 EDT Provider Outr Resulting Lab MICROBIOLOGY - GENERAL ORDERABLES [facility] [address] [place] [address] documented in this encounter Visit Diagnoses Not on filedocumented in this encounter Care Teams Scarfing Machine Operator Relationship Specialty Start Date End Date Devorah Epstein MD [address] [place] [address] [phone] PCP - General 11/04/15 documented as of this encounter
--- OUTSIDE RECORDS SUMMARY | 2024-01-22 03:00 | XMS_ITS | Encounter Summary ---
Author Organization [facility] Address [address] [place] [address] Care Team Providers Care Engraver Flatware Name Role Phone Devorah Epstein MD Primary Care Provider [phone] Reason for Referral * Consult (Routine) - New Request Specialty Diagnoses / Procedures Referred By Contac t Referred To Contact Diagnoses Elevated troponin Coronary artery disease involving other coronary artery bypass graft without [place] [address] [place] [address] [place] [address] Cristobal Marie MD [address] [place] [id number] Referral ID Status Reason Start Date Expiration Date Visits Requested Visits Authorized [id number] New Request Specialty Services Required 02/07/2018 1 1 Question Answer Reason for Request: Follow up hospital stay for elevated troponin, normal echo Reason for Visit * Reason Comments Chest Pain arrived via EMS from [facility]. +NSTEMI. had bypass in August 2018. denies current CP. is in NAD at this time Encounter Details Date Type Department Care Team (Late st Contact Info) Description 02/07/2018 4:31 EDT - 02/07/2018 15:37 EDT Hospital Encounter [facility] Emergency Department - Main [address] [address] Lisa Ashley MD [address] [place] [address], [address] [place] [address] Sergei Cristobal MD [address] [place] [address], [address] [place] [address] NSTEMI (non-ST elevated myocardial infarction) ([facility]) (Primary Dx); Elevated troponin; Coronary artery disease involving other coronary artery bypass graft without angina pectoris; Coronary artery disease involving shoalwater coronary artery of shoalwater heart, angina presence unspecified Discharge Disposition: Home or Self Care Social [...] on file documented as of this encounter Last Filed Vital Signs Vital Sign Reading [...] Body Mass Index 37.43 02/07/2018 0417 EDT documented in this encounter Discharge Diagnoses Diagnosis R79.89 Other specified abnormal findings of blood chemistry-R79.89[ICD-10-CM] Q61.3 Polycystic kidney, unspecified-Q61.3[ICD-10-CM] I25.10 Atherosclerotic heart disease of shoalwater coronary artery without angina pectoris-I25.10[ICD-10-CM] I10 Essential (primary) hypertension-I10[ICD-10-CM] M1A.9XX0 Chronic gout, unspecified, without tophus (tophi)-M1A.9XX0[ICD-10-CM] K21.9 Gastro-esophageal reflux disease without esophagitis-K21.9[ICD-10-CM] G47.33 Obstructive sleep apnea (adult) (pediatric)-G47.33[ICD-10-CM] E66.01 Morbid (severe) obesity due to excess calories-E66.01[ICD-10-CM] Z95.1 Presence of aortocoronary bypass graft-Z95.1[ICD-10-CM] Z79.82 custodial (current) use of aspirin-Z79.82[ICD-10-CM] Z87.891 Personal history of nicotine dependence-Z87.891[ICD-10-CM] Z68.37 Body mass index (BMI) 37.0-37.9, adult-Z68.37[ICD-10-CM] documented in this encounter Discharge Summaries * Sergei Cristobal MD - 02/07/2018 1537 EDT Cardiology Discharge Summary Primary Care Provider: Devorah Epstein Attending Physician: No att. providers found Admit Date: 02/07/2018 Discharge Date: 02/07/2018 Disposition: Home or self care Problems and Procedures Admitting Diagnosis: NSTEMI (non-ST elevated myocardial infarction) ([facility]) Final Hospital Diagnosis: Elevated troponin Additional Problems Managed in the Hospital Active Hospital Problems Diagnosis Date Noted ??? *Elevated troponin 02/07/2018 ??? CAD (coronary artery disease) 02/07/2018 Resolved Hospital Problems Diagnosis Date Noted Date Resolved No resolved problems to display. Hospital Course Serge Cabrera is a 77 y.o. male with a PMHx of CAD s/p CABG x 2 08/2017, pericardial effusion requiring pericardiocentesis 11/2017, PCKD, HTN, gout, GERD and MALCOM on CPAP who presents in transfer due to concern for ACS. Upon presentation to the OSH ED, he was afebrile and hemodynamically stable. Labs showed WBC 6.1, Hb 11.5, PLT 135, K+ 3.1, CO@ 23, Cr 1.44, troponin of 0.04 (negetive per OSH lab). There was concern that his EKG had new ST depressions laterally (please refer to scanned documents) compared to priors on file and he was subsequently transferred to [facility] for further evaluation. Workup at [facility] ED showed an ECHO with EF of 65-70% with no wall motion abnormalities noted. No pericardial effusion noted. Troponin peaked at 0.103. Patient continued to remain asymptomatic and improved. Was felt that the patient was low risk for ACS at this time. Instructed to follow up primary border patrol agent Dr. Marie following hospitalization.?? Allergies and Immunizations Allergies Allergen Reactions ??? Fentanyl Nausea And Vomiting There is no immunization history on file for this patient. Transition of Care Plans Condition at Discharge Fair Assessment at Discharge Vital signs: Patient Vitals for the past 12 hrs: BP Heart Rate Resp Temp SpO2 O2 Device 02/07/18 0832 - - 18 - - None 02/07/18 0821 129/71 63 BPM 19 36.9 ??C (98.4 ??F) 96 % None 02/07/18 0628 122/64 68 BPM 16 36.3 ??C (97.3 ??F) 98 % None 02/07/18 0500 120/61 67 BPM 23 - 99 % None Discharge Medications: CONTINUE taking these medications Sig allopurinol 100 mg tablet Commonly known as: ZYLOPRIM Take 200 mg by mouth daily. aspirin chewable 81 mg tablet Take 81 mg by mouth daily. chlorthalidone 25 mg tablet Commonly known as: HYGROTON Take 25 mg by mouth daily. GLUCOSAMINE (BULK) MISC by misc (non-drug; combo route) route. losartan 25 mg tablet Commonly known as: COZAAR Take 25 mg by mouth daily. omeprazole 20 mg capsule Commonly known as: PRILOSEC Take 20 mg by mouth daily. rosuvastatin 10 mg tablet Commonly known as: CRESTOR Take 20 mg by mouth daily. selenium 100 mcg tablet Take 200 mcg by mouth daily. VITAMIN D ORAL Take by mouth. ZEBETA ORAL Take 2.5 mg by mouth daily. ASK your doctor about these medications Sig acetaminophen 500 mg tablet Commonly known as: TYLENOL Take 500 mg by mouth every 6 hours as needed for Pain. Is the patient being discharged with a diagnosis of Systolic Heart Failure? No Coumadin Management N/A Results Pending at Discharge Test results still pending from this admission Procedure Component Value Units Date/Time Bacterial Culture, Urine [[id number]] Collected: 02/07/18 0578 Lab Status: In process Updated: 02/07/18804 Last Lab Results at Discharge BUN: Lab Results Component Value Date BUN 19 02/07/2018 Creatinine: Lab Results Component Value Date CREATININE 1.14 02/07/2018 CBC: Lab Results Component Value Date WBC 7.14 02/07/2018 RBC 4.92 02/07/2018 HGB 11.8 (L) 02/07/2018 HCT 37.3 (L) 02/07/2018 MCV 76 (L) 02/07/2018 MCH 24.0 (L) 02/07/2018 MCHC 31.6 (L) 02/07/2018 PLT 150 02/07/2018 DIFFTYPE Automated 02/07/2018 Electrolytes: Lab Results Component Value Date NA 137 02/07/2018 K 3.6 02/07/2018 CL 102 02/07/2018 CO2 24 02/07/2018 Lab Results Component Value Date HGBA1C 6.3 02/07/2018 Discharge Follow Up Appointments Outside of [facility] We Will Schedule Follow-up appointments and procedures Amb Consult/Follow Up Cardiology Reason for Request: Follow up hospital stay for elevated troponin, normal echo Authorizing Provider: Jake Rene MD Joseph Boyle, MD 02/07/2018 16:36 Attestation statement::I have seen and examined this patient. I agree with the plan as outlined above. Sergei Cristobal MD documented in this encounter Medications at Time of Discharge [...] tablet Take 200 mcg by mouth daily. cephALEXin (KEFLEX) 500 mg capsule Take 1 Cap by mouth 2 times daily for 7 days. 14 Cap 02/10/2018 02/17/2018 documented as of this encounter Ordered Prescriptions Prescription Sig Dispensed Refills Start Date End Da te cephALEXin (KEFLEX) 500 mg capsule Take 1 Cap by mouth 2 times daily for 7 days. 14 Cap 02/10/2018 02/17/2018 documented in this encounter Discharge Disposition Disposition Code Departure Means Destination Home or Self Care Walk-out Home documented in this encounter Progress Notes * Minh Parra RT - 02/07/2018 2270 EDT Respiratory Consult/Progress Note Indications for Respiratory therapy: MALCOM Data Vitals: Heart Rate: 63 BPM, Resp: 18, SpO2: 96 % FIO2/O2 Device: , , O2 Device: None, RT Orders: CPAP NOC Protocol Scoring: Bronchodilator/Inhalation Therapy Frequency Bronchodialator - Clinical Indications: No clinical indications Breath Sounds: Clear Response: No change / no treatment Pulse: <100 Resp Rate: <18 SOB: None Total Score: 0 Airway Clearance Therapy Frequency Airway Clearance - Clinical Indications: No clinical indications Breath Sounds: Clear / diminished Sputum: Small (tsp) / None Consistency: None Cough Effort: Strong, non-productive Color: None Total Score: 0 Hyperinflation Therapy Frequency Hyperinflation - Clinical Indications: No clinical indications Breath Sounds: Other Surgery: No X-Ray / Atelectasis: No O2 Requirements: O2 at baseline Mobility Status: Mobile / at baseline Total: 1 Action/Events Consult complete. Breath sounds clear Patient does not take any respiratory meds, wer home 02 or smoke. Patient does wear home CPAP. RT Estrada 02/07/18 * Astrid Melendez MD - 02/07/2018 4036 EDT Head Custodian Addendum (please see international affairs vice president/resident H&P for full details) 77yo M with polycystic kidney disease, HTN, MALCOM, obesity, 2-V CABG 09/11/2017 (FRIAS-LAD and SVG-OM) c/b post-op afib on 30 days of amio and no OAC but then had pericardial effusion 11/2017 s/p tap 1100cc sent home with prednisone. He was sent here for NSTEMI given TWI inferior and anterolaterally on ECG there and mild trop elevation. No chest pain but didn't have chest pain before CABG either - hadSOB. He had been doing okay at home but he'd been diaphoretic, upset stomach with abdominal swelling andearly satiety and had a low grade temp at home (febrile at home to 100.6 per family). Trop 0.1 here. TWI inferiorly and anterolaterally stable across multiple ECGs. No orhtopnea/PND, MICHAEL. Cr 1.1, WBC7, Hgb 11.8, plt 150. INR 1.3 At OSH he was loaded with ASA and heparin, no plavix/ticag. On exam, well appearing in no distress. Morbidly obese. Normal rate, reg rhythm, no m/r/g. Can't see JVD. Chest CTAB. Ext WWP, no significant pitting edema. POC echo without significant pericardial effusion although given body habitus windows not great A/P: 77yo M with complicated recent history transferred from OSH for concern for ACS given but alsowith recent history of large pericardial effusion post-cabg and now with fevers and diaphroesis, upset stomach. No significant effusion or constrictive (effusive-constrictive) physiology on my bedside echo so will continue heparin gtt. Will obtain formal echo this AM - added on NTproBNP, hsCRP - trend trops to peak - formal echo in morning - depending on results of echo, will consider LHC to eval grafts and shoalwater vessels. Will give [id number] prior to LHC if that route is decided upon Astrid Melendez, PGY-5 Head Custodian Pager #[phone] Hernandez 01/02/18 TTE: 1. The left ventricular chamber size is normal. Moderate concentric left ventricular hypertrophy is observed. There are no left ventricular segmental wall motion abnormalities. Global left ventricular systolic function appears hyperdynamic. Ejection fraction is estimated to be 80%. 2. The right ventricle is probably normal in size. Right ventricular global systolic function is normal. 3. There is no hemodynamically significant valve disease. 4. There is a small circumferential pericardial effusion. The pericardial effusion is fibrinous. The organized echo free space in the pericardium is smaller than on the prior study from 12/01/17. There is no evidence of constrictive physiology. 5. A left pleural effusion is present. 6. See remainder of report for additional findings. documented in this encounter H&P Notes * Sergei Cristobal MD - 02/07/2018 0449 EDT Cardiology Admitting H&P Admit Date: 02/07/2018 Date of Service: 02/07/2018 PCP: Devorah Epstein Code Status: Full Code Chief Complaint: Diaphoresis HPI: Serge Cabrera is a 77 y.o. male with a PMHx of CAD s/p CABG x 2 08/2017, pericardial effusion requiring pericardiocentesis 11/2017, PCKD, HTN, gout, GERD and MALCOM on CPAP who presents in transfer due to concern for ACS. The patient reports having a stale stomach all day. He also had urinary frequency, but this is not uncommon for him. Later in the day he developed chills and sweats and his temperature was reportedly 100.6. He took Tylenol and shortly thereafter was driven to the ED by his family for further evaluation. Overall, he says that he has been feeling pretty well recently and has been able to progressively walk further distances without getting short of breath. He just finished cardiac rehab last week. Upon presentation to the OSH ED, he was afebrile and hemodynamically stable. Labs showed WBC 6.1, Hb 11.5, PLT 135, K+ 3.1, CO@ 23, Cr 1.44, troponin of 0.04 (negetive per OSH lab). There was concernthat his EKG had new ST depressions laterally (please refer to scanned documents) compared to priors on file and he was subsequently transferred to [facility] for further evaluation. During my interview in the ED, the patient denied any active issues. He stated that he no longer was having urinary frequency, chills, sweats or GI upset. He denies ever having chest pain, pressure or discomfort of any sort. He also denies headache, dizziness, palpitations, nausea, vomiting, dysuria or blood in his stool. He has swelling in his legs on and off and recently stopped taking furosemide due to his renal function. His daughter emphasized the fact that he often plays down his symptoms. She says he was extremely diaphoretic and looked ill when she brought him to the OSH ED, but agrees he looks better now. She notes that his appetite in the past few days was poor. She is very concerned about him since he tends to have subtle presentations for severe issues. The patient is a former smoker and denies alcohol use. Prior Cardiac History: - CABG (FRIAS to LAD and SVG to OM) 08/2017 at [facility] with atrial fibrillation post-operatively - Pericardiocentesis November 2017 with removal of 1100 cc serous blood-tinged fluid and treated with aprednisone tap TTE 01/02/18 at [facility]: 1. The left ventricular chamber size is normal. Moderate concentric left?? ventricular hypertrophy is observed. There are no left ventricular?? segmental wall motion abnormalities. Global left ventricular systolic?? function appears hyperdynamic.?Ejection fraction is estimated to be?? 80%.?? 2. The right ventricle is probably normal in size. Right ventricular?? global systolic function is normal.?? 3. There is no hemodynamically significant valve disease. ?? 4. There is a small circumferential pericardial effusion. The?? pericardial effusion is fibrinous. The organized echo free space in the?? pericardium is smaller than on the prior study from 12/01/17. There is no?? evidence of constrictive physiology.?? 5. A left pleural effusion is present.?? 6. See remainder of report for additional findings.?? PMH PSH Past Medical History: Diagnosis Date ??? Diverticulitis ??? GERD (gastroesophageal reflux disease) ??? Gout ??? Hypertension Past Surgical History: Procedure Laterality Date ??? CORONARY ARTERY BYPASS GRAFT ??? ROTATOR CUFF REPAIR Bilateral Social History Family History Social History Substance Use Topics ??? Smoking status: Never Smoker ??? Smokeless tobacco: Never Used ??? Alcohol use No No family history on file. Medications (Not in a hospital admission) Allergies Allergies Allergen Reactions ??? Fentanyl Nausea And Vomiting Review of Systems: A ten point review of systems was performed. Pertinent positives are listed above in HPI, all others are negative. Objective/Physical Exam: VS: Patient Vitals for the past 8 hrs: BP Heart Rate Resp Temp SpO2 O2 Device 02/07/18 0821 129/71 63 BPM 19 36.9 ??C (98.4 ??F) 96 % None 02/07/18 0628 122/64 68 BPM 16 36.3 ??C (97.3 ??F) 98 % None 02/07/18 0500 120/61 67 BPM 23 - 99 % None 02/07/18 0418 (!) 137/114 73 BPM 15 36.3 ??C (97.4 ??F) 99 % None Pain: Patient Vitals for the past 8 hrs: Numeric Pain Level (Scale 1-10) 02/07/18 0821 0 02/07/18 0648 0 02/07/18 0417 0 Weight: Weight : (!) 125.2 kg (276 lb) Body mass index is 37.43 kg/(m^2). Glucose Readings (last 8 hours): No results for input(s): GLUCOSEFINGE in the last 72 hours. Exam: General: alert, awake, NAD, resting in bed HEENT: head atraumatic, anicteric sclerae, pupils equal Heart: RRR, no murmurs appreciated Lungs: no increased work of breathing, CTAB, no wheezes or crackles Abdomen: obese, active bowel sounds, soft, non-tender to palpation Extremities: no LE edema, 2+ DP pulses Skin: warm, dry, no lesions or rashes Neuro: AAOx3, moving all extremities, no focal deficits noted Data Review: Labs: I have personally reviewed CBC: Lab Results Component Value Date WBC 7.14 02/07/2018 RBC 4.92 02/07/2018 HGB 11.8 (L) 02/07/2018 HCT 37.3 (L) 02/07/2018 MCV 76 (L) 02/07/2018 MCH 24.0 (L) 02/07/2018 MCHC 31.6 (L) 02/07/2018 PLT 150 02/07/2018 NEUTROABS 5.13 02/07/2018 BMP: Lab Results Component Value Date NA 137 02/07/2018 K 3.6 02/07/2018 CL 102 02/07/2018 CO2 24 02/07/2018 BUN 19 02/07/2018 CREATININE 1.14 02/07/2018 CALCIUM 9.9 02/07/2018 MG 1.9 02/07/2018 LABALBU 4.1 02/07/2018 Coagulation: Lab Results Component Value Date PROTIME 15.0 (H) 02/07/2018 Cardiac markers: Lab Results Component Value Date TROPONINI 0.103 (H) 02/07/2018 Other Studies: CXR pending eGFR calculation: GFR, Calculated Date Value Ref Range Status 02/07/2018 62 >60 ml/min/1.73m2 Final Comment: eGFR calculated using CKD-EPI equation for non Americans. Multiply eGFR by 1.16 for Americans. Assessment: Serge Cabrera is a 77 y.o. male with a PMHx of CAD s/p CABG x 2 08/2017, pericardial effusion requiring pericardiocentesis 11/2017, PCKD, HTN, gout, GERD and MALCOM on CPAP who presents in transfer due to concern for ACS. Plan: Elevated Troponin: Unclear if his presentation is truly consistent with ACS as he never had any chest pain. However, it sounds like he was extremely diaphoretic and had some GI upset that could be his anginal equivalent. Troponin was negative at the OSH, but elevated here which could further support NSTEMI. Recurrent pericardial effusion must be ruled out as well. - s/p ASA load - continue ASA 81 mg daily - continue heparin drip for now - hold off on loading with a platelet agent for the moment prior to echo - obtain formal echocardiogram - follow EKGs and trend troponin - add on BNP, CRP and lactate - CXR ordered - keep NPO in case he needs a cath CAD s/p CABG: As above. - continue ASA 81 mg - continue bisoprolol 2.5 mg daily - continue Crestor 20 mg daily HTN - continue chlorthalidone 25 mg daily - continue losartan 25 mg daily GERD - SENIOR MANAGEMENT CONSULTANT PPI replaced with pantoprazole Gout - continue allopurinol 200 mg daily PCKD: Baseline renal function per Care Everywhere appears to be 1.1-1.2. - follow on labs - limit nephrotoxins as able Code: FULL - discussed with the patient's daughter VTE Prophylaxis: Heparin gtt Discharge Plan: Uncertain at this time Discussed with Dr. Melendez. Lisa Champagne, DO Internal Medicine, PGY-2 02/07/2018 8:31 Attestation statement::I have seen and examined this patient. I agree with the plan as outlined above. Sergei Cristobal MD documented in this encounter ED Notes * Jaswant Spaulding - 02/07/2018 1312 EDT IJaswant, notified Dr. Garcia of Unfractionate Heparin 1.26 on 02/07/2018 at 13:12. * Mario Crowell - 02/07/2018 1236 EDT Blood drawn via saline lock per protocol, green tube(s) sent to lab per order. * Marilu Bullock - 02/07/2018 1206 EDT Blood drawn via saline lock per protocol, tiger and purple tube(s) sent to lab per order. * Lisa Ashley MD - 02/07/2018 0808 EDT DOS: 02/07/2018 Chief Complaint Patient presents with ??? Chest Pain arrived via EMS from [facility]. +NSTEMI. had bypass in August 2018. denies current CP. is in NADat this time HPI Evelia Boykin, am scribing for Lisa Ashley MD while he/she is personally performing the service. Evelia Whitmore 02/07/2018 8:08 Serge Cabrera is a 77 y.o. male with a history of MALCOM on CPAP, HTN, polycystic kidney disease,GERD, and diverticulitis presenting via transfer from [facility] with NSTEMI. Patient initially began experiencing diaphoresis and chest pressure yesterday. Troponin at OSH was positive and he wastransferred to [facility] ED for further evaluation. On arrival he endorses improvement in pain. Patienthad a previous CABG in August 2017. Patient has never smoked and does not currently drink ETOH. The history is provided by the patient, the EMS personnel and medical records. Review of Systems Review of Systems Constitutional: Positive for diaphoresis. Negative for fever. Cardiovascular: Positive for chest pain. Gastrointestinal: Negative for vomiting. Skin: Negative for color change and wound. All other systems reviewed and are negative. The patient's past medical, family and social history was reviewed and updated as needed. Allergies Allergen Reactions ??? Fentanyl Nausea And Vomiting Vital Signs Temp: 36.9 ??C (98.4 ??F) Temp src: Oral Heart Rate: 63 BPM Resp: 18 SpO2: 96 % BP: 129/71 BP MAP: 84 mm Hg BP Device: BP Machine Patient Position: Semi fowlers BP Cuff Location: Left arm Physical Exam Constitutional: He is oriented to person, place, and time. He appears well- developed and well-nourished. No distress. HENT: Head: Normocephalic and atraumatic. Eyes: Conjunctivae and EOM are normal. Pupils are equal, round, and reactive to light. Right eye exhibits no discharge. Left eye exhibits no discharge. Neck: Normal range of motion. Neck supple. No tracheal deviation present. Cardiovascular: Normal rate, regular rhythm, normal heart sounds and intact distal pulses. No murmur heard. Pulmonary/Chest: Effort normal and breath sounds normal. No respiratory distress. He has no wheezes. Abdominal: Soft. Bowel sounds are normal. He exhibits no distension. There is no tenderness. Musculoskeletal: Normal range of motion. He exhibits no edema. Neurological: He is alert and oriented to person, place, and time. He exhibits normal muscle tone. Skin: Skin is warm and dry. No rash noted. Psychiatric: He has a normal mood and affect. Nursing note and vitals reviewed. RESULTS EKG orders: EKG 12-LEAD EKG 12-LEAD Radiology orders: CHEST PA AND LATERAL ED Lab Results Labs Reviewed TROPONIN I - Abnormal Result Value Status Troponin I 0.103 (*) Final COMPLETE BLOOD COUNT AND DIFFERENTIAL - Abnormal WBC 7.14 Final RBC 4.92 Final Hemoglobin 11.8 (*) Final HCT 37.3 (*) Final MCV 76 (*) Final MCH 24.0 (*) Final Hypochromia 1+ Final MCHC 31.6 (*) Final RDW-CV 17.8 (*) Final RDW-SD 48.4 (*) Final Anisocytosis 1+ Final PLT 150 Final MPV 9.0 (*) Final Neutrophils 71.8 Final Lymphocytes 15.3 Final Monocytes 10.4 Final Eosinophils 0.8 Final Basophils 0.4 Final Immature Grans 1.3 Final ABS Neutrophils 5.13 Final ABS Lymphs 1.09 Final ABS Monocytes 0.74 Final ABS Eosinophils 0.06 Final ABS Basophils 0.03 Final ABS Immature Grans 0.09 (*) Final Type of Diff: Automated Final COMPREHENSIVE METABOLIC PANEL (CMP) - Abnormal Potassium 3.6 Final Sodium 137 Final Chloride 102 Final CO2 24 Final Total Alkaline Phosphatase 62 Final Bilirubin, Total 1.2 Final AST 19 Final ALT 17 (*) Final Albumin 4.1 Final Total Protein 6.3 Final Creatinine 1.14 Final GFR, Calculated 62 Final BUN 19 Final Calcium 9.9 Final Calculated Calcium 9.8 Final Glucose, Serum 133 (*) Final Fasting? Unknown Final UA, CHEMICAL AND SEDIMENT ANALYSIS (DIPSTICK AND MICROSCOPIC) - Abnormal Color, UA Yellow Final Clarity, UA Clear Final Glucose, UA Neg Final Bilirubin, UA Neg Final Ketones, UA Neg Final Refractometer SG,Urine 1.007 Final Blood, UA 1+ (*) Final pH, UA 6.5 Final Protein, UA Neg Final Urobilinogen, UA Normal Final Nitrite, UA Neg Final Leuk Esterase 2+ (*) Final UA Method Used Final Urine RBC Count Automated 0 to 2 Final Urine WBC Count Automated 11 to 50 (*) Final Urine Squamous Epithelial Cell Count, Automated None seen Final Urine Hyaline Casts, Automated < or = 10 Final Urine Bacteria Count, Automated Moderate (*) Final UA Comment Sediment results Final NT PRO BNP - Abnormal NT Pro BNP 2360 (*) Final PROTIME - Abnormal Pro Time 15.0 (*) Final I.N.R. 1.3 (*) Final BACTERIAL CULTURE, URINE HOLD BLUE TOP Hold Blue Top Final Value: Sample for coagulation will be discarded after 4 hours HOLD SST Hold SST Final Value: Hold for further testing. Specimen will be held for 5 days. HOLD LAVENDER TOP Hold Purple Top Final Value: EDTA for hematology will be discarded after 48 hours, differential not available after 12 hours. ED/URGENT CARE ADD-ON Tests to be added CBC WITH DIFF, CMP Final Number for problems [id number] (ED) Final URINE CULTURE IF UA POSITIVE - NON POCT URINALYSIS ONLY Culture if Indicated Culture indicated by urinalysis results. Final ED/URGENT CARE ADD-ON Tests to be added PT Final Number for problems [id number] (ED) Final MAGNESIUM Magnesium 1.9 Final TSH TSH 0.83 Final INPATIENT ADD-ON Tests to be added NTPROBNP Final Number for problems [id number] Final Accession number Final Value: [id number] FOR CRPP ONLY LET DR LISA CHAMPAGNE KNOW THAT PT HAD NTBNP AND NO OTHER SAMPLE TO ADD ANOTHER ONE TO TROPONIN I COMPLETE BLOOD COUNT HEMOGLOBIN A1C C REACTIVE PROTEIN Relevant Data Procedures ED COURSE A medical screening exam was performed. 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 The patient had an EKG which was independently reviewed and interpreted by me. ST depressions inferolaterally, not acutely changed from OSH. Patient treated with 15 units/kg/hr heparin IV. Patient had labs that were reviewed independently by myself, significant for troponin of 0.103, BNPof 2360, INR of 1.3. POCT urine with 1+ blood, 2+ leuk esterase. Urine micro with 11 to 50 WBC, moderate bacteria. Patient had chest X-ray, which was significant for moderate to large left pleural effusion. Patienthad x-rays that were obtained, reviewed, and interpreted by myself and discussed with a radiologist. Please see radiology report for further details. Patient admitted to Cardiology with telemetry under Dr. Cristobal. 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 benefit of further medications. Upon departure from the Emergency Department, the patient's pain was 0 on a zero to ten scale. Any further pain treatment will be at the discretion of the provider following up with the patient based on their clinical assessment. Condition at departure from the Emergency Department: Stable PCP: Devorah Epstein [facility] 02/08/2018 13:46 No flowsheet data found. This documentation is recorded by Evelia Whitmore acting as Scribe under the direction and presence of Lisa Ashley MD. Lisa Ashley MD: I personally performed the services recorded by the scribe in my presence. I confirm the scribe's documentation has been reviewed by me to accurately and completely record my work, treatment, procedures, and medical decision making. * Tez Hernandez - 02/07/2018 0556 EDT 12 Lead EKG Performed by TEZ HERNANDEZ and shown to Lisa Ashley MD. * Pablo Saba - 02/07/2018 0431 EDT 12 Lead EKG Performed by PABLO SABA and shown to Lisa Ashley MD. * Pablo Saba - 02/07/2018 0430 EDT Blood drawn via saline lock per protocol, rainbow tube(s) sent to lab per order. documented in this encounter Miscellaneous Notes * Plan of Care - Verónica Hamilton RN - 02/07/2018 1531 EDT Nursing Discharge Note D: Patient noted with discharge orders to: home. Hemodynamically stable. A: Reviewed discharge instructions with Patient and Family IV d/c'd. Belongings collected and sent home with patient. R: Patient and Family verbalized understanding of discharge instructions and denied further questions. Verónica Hamilton RN 02/07/2018 15:31 * Plan of Care - Verónica Hamilton RN - 02/07/2018 1429 EDT Patient seen by Cardiology team and as per Dr. Cristobal, patient does not need any intervention atthis time. Heparin gtt stopped and plavix loading dose ordered held per MD. Patient anticipating discharge to home. Awaiting d/c orders. Verónica Hamilton RN 02/07/2018 14:29 * Plan of Care - Verónica Hamilton RN - 02/07/2018 1356 EDT Problem: Daily Care Plan Goals Goal: Care Plan Documentation Outcome: Met This Shift 02/07/18 0821 Care Plan Focus Area of Focus Education Goal This Shift will have good understanding of plan of care for today Data: Patient here for NSTEMI. Denies chest pain. VSS. Afebrile, not diaphoretic, no SOB. SR on telemetry , HR in the 60's. Action: Telemetry monitoring maintained. Heparin gtt infusing per protocol. Reviewed plan of care and treatment plan. Response: Good understanding of treatment plan. Family present at bedside. Plan for heart cath tomorrow, NPO after midnight. Patient and family aware of plan. Awaiting transfer to cardiology unit when room available. Hemodynamically stable at this time. Will continue to monitor. 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 angina pectoris Ordered: 02/07/2018 documented as of this encounter Procedures Procedure Name Priority Date/Time Associated Diagnosis Comments ECG REPORT - SCANNED 02/09/2018 10:53 EDT ECG REPORT - SCANNED 02/08/2018 15:24 EDT HEPARIN LEVEL - UNFRACTIONATED HEPARIN STAT 02/07/2018 12:27 EDT TROPONIN I Routine 02/07/2018 10:54 EDT ECHOCARDIOGRAM Routine 02/07/2018 10:35 EDT CHEST PA AND LATERAL STAT 02/07/2018 6:04 EDT INPATIENT ADD-ON Routine 02/07/2018 6:00 EDT EKG 12-LEAD Routine 02/07/2018 5:55 EDT URINE CULTURE IF POSITIVE Routine 02/07/2018 5:47 EDT URINE CHEMICAL (DIP) & SEDIMENT (MICRO) WITHOUT REFLEX TO CULTURE Routine 02/07/2018 5:47 EDT BACTERIAL CULTURE, URINE Routine 02/07/2018 5:47 EDT ED/URGENT CARE ADD-ON STAT 02/07/2018 5:25 EDT ED/URGENT CARE ADD-ON STAT 02/07/2018 4:40 EDT HOLD SST Routine 02/07/2018 4:23 EDT HOLD LAVENDER TOP Routine 02/07/2018 4:2 3 EDT HOLD BLUE TOP Routine 02/07/2018 4:23 EDT TROPONIN I STAT 02/07/2018 4:23 EDT PROTIME Routine 02/07/2018 4:23 EDT COMPLETE BLOOD COUNT AND DIFFERENTIAL Routine 02/07/2018 4:23 EDT C REACTIVE PROTEIN Routine 02/07/2018 4: 23 EDT TSH Routine 02/07/2018 4:23 EDT NT PRO BNP Routine 02/07/2018 4:23 EDT MAGNESIUM Routine 02/07/2018 4:23 EDT HEMOGLOBIN A1C Routine 02/07/2018 4:23 EDT COMPREHENSIVE METABOLIC PANEL (CMP) Routine 02/07/2018 4:23 EDT EKG 12-LEAD STAT 02/07/2018 4:21 EDT documented in this encounter Results * ECG REPORT - SCANNED (02/09/2018 10:53 EDT) 02/09/2018 10:5 3 EDT Scan 2 Evp Managing Director PROCEDURE/MINOR ADITYA GICAL ORDERABLES * ECG REPORT - SCANNED (02/08/2018 15:24 EDT) 02/08/2018 15:2 4 EDT Scan 2 Evp Managing Director PROCEDURE/MINOR ADITYA GICAL ORDERABLES * (ABNORMAL) HEPARIN LEVEL - UNFRACTIONATED HEPARIN (02/07/2018 12:27 EDT) [facility] Heparin Level-UFH 1.26(HH) IU/mL 018 13:05 EDT [facility] Comment: Unfractionated heparin therapeutic range = 0.3-0.7 IU/ml This test is not intended for monitoring direct Xa inhibitors, direct thrombin inhibitors, or fondaparinux. Exogenous ATIII is NOT supplied in this assay. For unexpected or persistently low levels, consider measuring patient's ATIII level. Elevated heparin levels are due to supra-therapeutic heparin in sample. Check the following to confirm result accurately reflects the patient's unfractionated heparin level: 1. Blood sample obtained from a non-heparinized line and/or line was properly flushed. 2. Collection site was distal to heparin infusion. 3. Concentration of heparin infusion is correct. 4. Infusion rate of heparin is correct. Sample retested, result confirmed Blood specimen (specimen) BLOOD SPECIMEN / Unknown 02/07/2018 12:27 EDT 02/07/2018 12:43 EDT Lisa Ashley MD HEMATOLOGY & PF4 OR DERABLES [facility] [address] [place] [address] * (ABNORMAL) TROPONIN I (02/07/2018 10:54 EDT) Troponin I (ng/mL) 0.102(H) <0.034 ng/ml 02/07/2018 12:49 EDT [facility] Comment: The results of this assay can be falsely lowered due to the consumption of Biotin. Blood specimen (specimen) BLOOD SPECIMEN / Unknown 02/07/2018 10:54 EDT 02/07/2018 12:14 EDT Lisa Champagne DO CHEMISTRY & BLOOD GAS ORDERABLES [facility] [address] [place] [address] * ECHOCARDIOGRAM (02/07/2018 10:35 EDT) Anatomical Region Laterality Modality Other 02/07/2018 10:3 5 EDT Narrative 02/07/2018 11:10 EDT *Interpreting Group:* *[facility]* [address] [place] [address] Date of study: 02/07/2018 Transthoracic Echocardiography M-mode, complete 2D, complete spectral Doppler, and color Doppler *STUDY CONCLUSIONS* Summary: 1. Left ventricle: The cavity size was normal. Wall thickness was ?? increased in a pattern of mild LVH. Systolic function was normal. The ?? estimated ejection fraction was 65-70%. Although no diagnostic ?? regional wall motion abnormality was identified, this possibility ?? cannot be completely excluded on the basis of this study. Lateral ?? annulus E velocity: 0.097m/sec. Ratio of mitral valve peak E velocity ?? to lateral annulus peak E velocity: 8. 2. Right ventricle: The cavity size was normal. Systolic function was ?? normal. 3. Left atrium: The atrium was mildly dilated. Volume/bsa ES (2-p ?? Simpsons): 36ml/m^2. 4. Pulmonary arteries: Systolic pressure could not be accurately ?? estimated. 5. Pericardium, extracardiac: There was a left pleural effusion. *PATIENT PRESENTATION* Height: ? 182.9cm ((72in) ) S/D Pressure: 129 / 71 Weight: ? 125.2kg ((275.4lb) ) BSA: ?2.57m^2 Test start time: ??09:36 AM. Test stop time: ??10:21 AM. ADMITTING ?Sergei Cristobal MD REFERRING ?Devorah Epstein ATTENDING ?Lisa Ashley PERFORMING ?? [employer], AFTER SCHO[employer] PROGRAM ASSISTANT ??Forest Dong ORDERING ? Lisa Champagne Do REFERRING ?Lisa Champagne Do *PROCEDURE DATA* Procedure information: ??The patient was identified by two identifiers. This study was interpreted by [facility]. Pertinent images and digital data are archived for permanent storage and are available for subsequent review. ??Study status: Routine. Transthoracic echocardiography. ??M-mode, complete 2D, complete spectral Doppler, and color Doppler. A Transthoracic Echocardiogram was performed. The parasternal window was low, thus no M-mode measurements were recorded. Scanning was performed from the parasternal, apical, subcostal, and suprasternal notch acoustic windows. Images were obtained using an Lybrateq 11 cardiac ultrasound machine. Image quality was suboptimal. The study was technically limited due to body habitus. Intravenous contrast (Definity) was administered by Forest Dong to enhance delineation of left ventricular endocardial borders. Prior to administration at least two (2) contiguous segments of the left ventricular border were not visualized. Definity amount administered was a total of 2.5ml. One vial was used. ??Study completion: ??The patient tolerated the procedure well. There were no complications. *INDICATIONS AND HISTORY* Indications: ?? NSTEMI I21.4. *CARDIAC ANATOMY* Left ventricle: ??The cavity size was normal. Wall thickness was increased in a pattern of mild LVH. Systolic function was normal. The estimated ejection fraction was 65-70%. Although no diagnostic regional wall motion abnormality was identified, this possibility cannot be completely excluded on the basis of this study. Diastolic parameters were normal. Aortic valve: ??Not well visualized. ??Trileaflet; mildly thickened leaflets. Mobility was not restricted. ??Doppler: ??Transvalvular velocity was within the normal range. There was no stenosis. There was no significant regurgitation. Aorta: ??Aortic root: The aortic root was normal in size. Ascending aorta: The ascending aorta was mildly dilated. Mitral valve: ?? Structurally normal valve. ?? Mobility was not restricted. ??Doppler: ??Transvalvular velocity was within the normal range. There was no evidence for stenosis. There was no significant regurgitation. ?Peak gradient (D): 2.2mm Hg. Left atrium: ??The atrium was mildly dilated. Right ventricle: ??Not well visualized. The cavity size was normal. Systolic function was normal. Pulmonic valve: ?Doppler: ??Transvalvular velocity was within the normal range. There was no evidence for stenosis. There was no significant regurgitation. Tricuspid valve: ?? Structurally normal valve. ?Doppler: ??Transvalvular velocity was within the normal range. There was no evidence for stenosis. There was no significant regurgitation. Pulmonary artery: ?Systolic pressure could not be accurately estimated. Right atrium: ??The atrium was normal in size. Pericardium: ??There was no pericardial effusion. Systemic veins: Inferior vena cava: The vessel was normal in size. Pleura: ??There was a left pleural effusion. Measurements Left ventricle ? Value ?Reference LV ID, ED, PLAX ?4.4 ?? cm ? 3.5 - 6.0 LV ID, ES, PLAX ?3.2 ?? cm ? 2.1 - 4.0 LV PW thickness, ED, PLAX ?1.2 ?? cm ? LV end-diastolic volume, 1-p A2C ? 107 ?? ml ? LV ejection fraction, 1-p A2C ?68 ?% ? LV end-diastolic volume, 1-p A4C ? 100 ?? ml ? LV ejection fraction, 1-p A4C ?71 ?% ? LV IVRT, DP ?81 ?ms ? 60 - 100 LV e', lateral ? 0.097 m/sec ?? LV E/e', lateral ? 8 ? LV e', medial ?0.057 m/sec ?? LV E/e', medial ?13 ? LV e', average ? 0.077 m/sec ?? LV E/e', average ? 10 ? Ventricular septum ? Value ?Reference IVS thickness, ED, PLAX ?1.2 ?? cm ? LVOT ? Value ?Reference LVOT ID, S ? 2.0 ?? cm ? LVOT area ?3.1 ?? cm^2 ?? LVOT peak velocity, S ?0.98 ??m/sec ?? LVOT mean velocity, S ?0.68 ??m/sec ?? LVOT VTI, S ?25.4 ??cm ? LVOT mean gradient, S ?2 ? mm Hg ?? Stroke volume (SV), LVOT DP ?80 ?ml ? Stroke index (SV/bsa), LVOT DP ? 31 ?ml/m^2 Aorta ?Value ?Reference Aortic root ID ? 3.4 ?? cm ? Ascending aorta ID, A-P ?4.0 ?? cm ? Ascending aorta ID, A-P, S ? 4.0 ?? cm ? Left atrium ?Value ?Reference LA ID, A-P, ES ? 4.0 ?? cm ? LA ID/bsa, A-P ? 1.6 ?? cm/m^2 <=2.2 LA area, ES, A4C ? (H) ? 27.7 ??cm^2 ?? 8.8 - 23.4 LA area, ES, A2C ? 25 ?cm^2 ?? LA volume, ES, 2-p ? 92 ?ml ? LA volume/bsa, ES, 2-p ? 36 ?ml/m^2 LA/aortic root ratio ? 1.18 ? Mitral valve ? Value ?Reference Mitral E-wave peak velocity ?0.75 ??m/sec ?? Mitral A-wave peak velocity ?0.67 ??m/sec ?? Mitral deceleration time ? (H) ? 243 ?? ms ? 150 - 230 Mitral peak gradient, D ?2.2 ?? mm Hg ?? Mitral E/A ratio, peak ? 1.1 ? Legend: (L) ??and ??(H) ??issac values outside specified reference range. I have personally reviewed the images and have reviewed and edited the reported findings. Electronically signed by Tommy Mcgowan MD 02/07/2018 11:10 Procedure Note Tommy Mcgowan MD - 02/07/2018 *Interpreting Group:* *[facility]* [address] [place] [address] Date of study: 02/07/2018 Transthoracic Echocardiography M-mode, complete 2D, complete spectral Doppler, and color Doppler *STUDY CONCLUSIONS* Summary: 1. Left ventricle: The cavity size was normal. Wall thickness was increased in a pattern of mild LVH. Systolic function was normal. The estimated ejection fraction was 65-70%. Although no diagnostic regional wall motion abnormality was identified, this possibility cannot be completely excluded on the basis of this study. Lateral annulus E velocity: 0.097m/sec. Ratio of mitral valve peak E velocity to lateral annulus peak E velocity: 8. 2. Right ventricle: The cavity size was normal. Systolic function was normal. 3. Left atrium: The atrium was mildly dilated. Volume/bsa ES (2-p Simpsons): 36ml/m^2. 4. Pulmonary arteries: Systolic pressure could not be accurately estimated. 5. Pericardium, extracardiac: There was a left pleural effusion. *PATIENT PRESENTATION* Height: 182.9cm ((72in) ) S/D Pressure: 129 / 71 Weight: 125.2kg ((275.4lb) ) BSA: 2.57m^2 Test start time: 09:36 AM. Test stop time: 10:21 AM. ADMITTING Sergei Cristobal MD REFERRING Devorah Epstein ATTENDING Lisa Ashley PERFORMING [employer], AFTER S[employer] PROGRAM ASSISTANT Forest Dong ORDERING Lisa Champagne Do REFERRING Lisa Champagne Do *PROCEDURE DATA* Procedure information: The patient was identified by two identifiers. This study was interpreted by [facility]. Pertinent images and digital data are archived for permanent storage and are available for subsequent review. Study status: Routine. Transthoracic echocardiography. M-mode, complete 2D, complete spectral Doppler, and color Doppler. A Transthoracic Echocardiogram was performed. The parasternal window was low, thus no M-mode measurements were recorded. Scanning was performed from the parasternal, apical, subcostal, and suprasternal notch acoustic windows. Images were obtained using an Epiq 11 cardiac ultrasound machine. Image quality was suboptimal. The study was technically limited due to body habitus. Intravenous contrast (Definity) was administered by Forest Dong to enhance delineation of left ventricular endocardial borders. Prior to administration at least two (2) contiguous segments of the left ventricular border were not visualized. Definity amount administered was a total of 2.5ml. One vial was used. Study completion: The patient tolerated the procedure well. There were no complications. *INDICATIONS AND HISTORY* Indications: NSTEMI I21.4. *CARDIAC ANATOMY* Left ventricle: The cavity size was normal. Wall thickness was increased in a pattern of mild LVH. Systolic function was normal. The estimated ejection fraction was 65-70%. Although no diagnostic regional wall motion abnormality was identified, this possibility cannot be completely excluded on the basis of this study. Diastolic parameters were normal. Aortic valve: Not well visualized. Trileaflet; mildly thickened leaflets. Mobility was not restricted. Doppler: Transvalvular velocity was within the normal range. There was no stenosis. There was no significant regurgitation. Aorta: Aortic root: The aortic root was normal in size. Ascending aorta: The ascending aorta was mildly dilated. Mitral valve: Structurally normal valve. Mobility was not restricted. Doppler: Transvalvular velocity was within the normal range. There was no evidence for stenosis. There was no significant regurgitation. Peak gradient (D): 2.2mm Hg. Left atrium: The atrium was mildly dilated. Right ventricle: Not well visualized. The cavity size was normal. Systolic function was normal. Pulmonic valve: Doppler: Transvalvular velocity was within the normal range. There was no evidence for stenosis. There was no significant regurgitation. Tricuspid valve: Structurally normal valve. Doppler: Transvalvular velocity was within the normal range. There was no evidence for stenosis. There was no significant regurgitation. Pulmonary artery: Systolic pressure could not be accurately estimated. Right atrium: The atrium was normal in size. Pericardium: There was no pericardial effusion. Systemic veins: Inferior vena cava: The vessel was normal in size. Pleura: There was a left pleural effusion. Measurements Left ventricle Value Reference LV ID, ED, PLAX 4.4 cm 3.5 - 6.0 LV ID, ES, PLAX 3.2 cm 2.1 - 4.0 LV PW thickness, ED, PLAX 1.2 cm LV end-diastolic volume, 1-p A2C 107 ml LV ejection fraction, 1-p A2C 68 % LV end-diastolic volume, 1-p A4C 100 ml LV ejection fraction, 1-p A4C 71 % LV IVRT, DP 81 ms 60 - 100 LV e', lateral 0.097 m/sec LV E/e', lateral 8 LV e', medial 0.057 m/sec LV E/e', medial 13 LV e', average 0.077 m/sec LV E/e', average 10 Ventricular septum Value Reference IVS thickness, ED, PLAX 1.2 cm LVOT Value Reference LVOT ID, S 2.0 cm LVOT area 3.1 cm^2 LVOT peak velocity, S 0.98 m/sec LVOT mean velocity, S 0.68 m/sec LVOT VTI, S 25.4 cm LVOT mean gradient, S 2 mm Hg Stroke volume (SV), LVOT DP 80 ml Stroke index (SV/bsa), LVOT DP 31 ml/m^2 Aorta Value Reference Aortic root ID 3.4 cm Ascending aorta ID, A-P 4.0 cm Ascending aorta ID, A-P, S 4.0 cm Left atrium Value Reference LA ID, A-P, ES 4.0 cm LA ID/bsa, A-P 1.6 cm/m^2 <=2.2 LA area, ES, A4C (H) 27.7 cm^2 8.8 - 23.4 LA area, ES, A2C 25 cm^2 LA volume, ES, 2-p 92 ml LA volume/bsa, ES, 2-p 36 ml/m^2 LA/aortic root ratio 1.18 Mitral valve Value Reference Mitral E-wave peak velocity 0.75 m/sec Mitral A-wave peak velocity 0.67 m/sec Mitral deceleration time (H) 243 ms 150 - 230 Mitral peak gradient, D 2.2 mm Hg Mitral E/A ratio, peak 1.1 Legend: (L) and (H) issac values outside specified reference range. I have personally reviewed the images and have reviewed and edited the reported findings. Electronically signed by Tommy Mcgowan MD 02/07/2018 11:10 Lisa Champagne DO CARDIAC ECHO ORDER KARENA * CHEST PA AND LATERAL (02/07/2018 6:04 EDT) Anatomical Region Laterality Modality Other 02/07/2018 6:04 EDT 02/07/2018 8:24 EDT Narrative 02/07/2018 8:24 EDT CHEST 2 VIEWS ??02/07/2018 6:04 AM Clinical History/Comments: dyspnea Comparison: None. Technique: Frontal and lateral views of the chest were performed. Findings: Soft tissues: ??Normal. Bones: Sternotomy wires are intact. Degenerative changes are present of both shoulders. Cardiac and mediastinal contours: Prior CABG. Lungs: A small amount of streaky left retrocardiac opacity likely represents atelectasis. ?? Pleura/diaphragms: There is a moderate size left pleural effusion. Impression: Moderate sized left pleural effusion. I have personally reviewed the images and the above interpretation and agree with the findings. Procedure Note Seymour Rick MD - 02/07/2018 CHEST 2 VIEWS 02/07/2018 6:04 AM Clinical History/Comments: dyspnea Comparison: None. Technique: Frontal and lateral views of the chest were performed. Findings: Soft tissues: Normal. Bones: Sternotomy wires are intact. Degenerative changes are present of both shoulders. Cardiac and mediastinal contours: Prior CABG. Lungs: A small amount of streaky left retrocardiac opacity likely represents atelectasis. Pleura/diaphragms: There is a moderate size left pleural effusion. Impression: Moderate sized left pleural effusion. I have personally reviewed the images and the above interpretation and agree with the findings. Astrid Melendez MD IMG DIAGNOSTIC IMAGI NG ORDERABLES * INPATIENT ADD-ON (02/07/2018 6:00 EDT) Tests to be added NTPROBNP 02/07/2018 5:58 EDT [facility] Comment:CRP Number for problems [id number] 02/07/2018 7:26 EDT [facility] Accession number [id number] FOR CRPP ONLY LET DR LISA CHAMPAGNE KNOW THAT PT HAD NTBNP AND NO OTHER SAMPLE TO ADD ANOTHER ONE TO 02/07/2018 7:26 EDT [facility] TOPOGRAPHY UNKNOWN / Unknown 02/07/2018 6:00 EDT 02/07/2018 7:25 EDT Astrid Melendez MD HEMATOLOGY & PF4 ORD ERABLES Performing Organization Address City/State/[facility] [place] Co de Phone Number [facility] [address] [place] [address] * EKG 12-LEAD (02/07/2018 5:55 EDT) 02/07/2018 5:55 EDT Narrative [facility] EKG - 02/08/2018 15:20 EDT ?[facility] ? Test Date: ?2018-02-07 Pat Name: ? SERGE CABRERA ? Department: ?? ED ? Room: ? AC07 Gender: ? Male ? 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 [id number] : ?1940 ? Requested By: EDNA SILVERIO Order Number: [id number] ? Reading : ?? BRIGIDO CHOWDHURY MD ? Measurements Intervals ?[place] ? Rate: ? 65 ? P: ?-30 FL: ? 210 ?QRS: ?64 QRSD: ? 94 ? T: ?-73 QT: ? 437 ? QTc: ?455 ? Interpretive Statements SINUS RHYTHM WITH FIRST DEGREE AV BLOCK ST DEVIATION AND MODERATE T-WAVE ABNORMALITY, CONSIDER INFERIOR ISCHEMIA Compared to ECG 02/07/2018 04:21:24 No significant changes I reviewed the tracing and have either agreed or edited the findings in this report. Electronically Signed On 02-08-2018 15:20:11 EDT by BRIGIDO CHOWDHURY MD. Procedure Note Brigido Chowdhury MD - 02/08/2018 [facility] Emergency Test Date: 2018-02-07 Pat Name: SERGE CABRERA Department: ED Room: [facility] Gender: Male Livestock Handler: [id number] : 1940 Requested By: EDNA SILVERIO Order Number: [id number] Reading MD: BRIGIDO CHOWDHURY MD Measurements Intervals [place] Rate: 65 P: -30 FL: 210 QRS: 64 QRSD: 94 T: -73 QT: 437 QTc: 455 Interpretive Statements SINUS RHYTHM WITH FIRST DEGREE AV BLOCK ST DEVIATION AND MODERATE T-WAVE ABNORMALITY, CONSIDER INFERIOR ISCHEMIA Compared to ECG 02/07/2018 04:21:24 No significant changes I reviewed the tracing and have either agreed or edited the findings inthis report. Electronically Signed On 02-08-2018 15:20:11 EDT by BRIGIDO KAUR. Lisa Champagne DO CARDIAC ECG ORDERA BLES [facility] EKG * BACTERIAL CULTURE, URINE (02/07/2018 5:47 EDT) Result Greater than 100,000 CFU/ml ESCHERICHIA COLI 02/08/2018 13:51 EDT [facility] URINE / Unknown 02/07/2018 5 :47 EDT 02/07/2018 8:04 EDT Narrative Organism Antibiotic Method Susceptibility Greater than 100,000 cfu/ml escherichia coli Ampicillin SUSCEPTIBILITY (VERONICA) Susceptible Greater than 100,000 cfu/ml escherichia coli Gentamicin SUSCEPTIBILITY (VERONICA) Susceptible Greater than 100,000 cfu/ml escherichia coli Trimethoprim-Sulfameth oxazole SUSCEPTIBILITY (VERONICA) Susceptible Greater than 100,000 cfu/ml escherichia coli Nitrofurantoin SUSCEPTIBILITY (VERONICA) Susceptible Greater than 100,000 cfu/ml escherichia coli Tobramycin SUSCEPTIBILITY (VERONICA) Susceptible Greater than 100,000 cfu/ml escherichia coli Ceftriaxone SUSCEPTIBILITY (VERONICA) Susceptible Greater than 100,000 cfu/ml escherichia coli Ciprofloxacin SUSCEPTIBILITY (VERONICA) Susceptible Greater than 100,000 cfu/ml escherichia coli Piperacillin Tazobactam SUSCEPTIBILITY (VERONICA) Susceptible Greater than 100,000 cfu/ml escherichia coli Meropenem SUSCEPTIBILITY (VERONICA) Susceptible Greater than 100,000 cfu/ml escherichia coli Ertapenem SUSCEPTIBILITY (VERONICA) Susceptible Greater than 100,000 cfu/ml escherichia coli Cefazolin SUSCEPTIBILITY (VERONICA) Susceptible Greater than 100,000 cfu/ml escherichia coli Cefazolin SUSCEPTIBILITY (VERONICA) Cefazolin susceptibility results can be used to predict susceptibility results for the following oral cephalosporins when used for therapy of uncomplicated UTIs due to E.coli, K.pneumoniae, and P.mirabilis: cefaclor, cefdinir, cefpodoxime, cefprozil, cefuroxime , cephalexin, loracarbef. Cefdinir, cefpodoxime, and cefuroxime may be tested individually because some isolates may be susceptible to these agents while testing resistant to cefazolin. Please note that only cefpodoxime and cephalexin are on the [facility] inpatient formulary. Sergei Cristobal MD MICROBIOLOGY - GENE RAL ORDERABLES Performing Organization Address [facility] Co de Phone Number [facility] [address] [place] [address] * URINE CULTURE IF UA POSITIVE - NON POCT URINALYSIS ONLY (02/07/2018 5:47 EDT) Culture if Indicated Culture indicated by urinalysis results. 02/07/2018 6:49 EDT [facility] Urine specimen (specimen) TOPOGRAPHY UNKNOWN / Unknown 02/07/2018 5:47 EDT 02/07/2018 6:10 EDT Lisa Champagne DO MICROBIOLOGY - GEN ERAL ORDERABLES Performing Organization Address [facility]/ZIP Co de Phone Number [facility] [address] [place] [address] * (ABNORMAL) UA, CHEMICAL AND SEDIMENT ANALYSIS (DIPSTICK AND MICROSCOPIC) (02/07/2018 5:47 EDT) Color, UA Yellow 02/07/2018 6:49 EDT [facility] Clarity, UA Clear 02/07/2018 6:49 EDT [facility] Glucose, UA Neg Neg 02/07/2018 6:49 EDT [facility] Bilirubin, UA Neg Neg 02/07/2018 6:49 [facility] Ketones, UA Neg Neg 02/07/2018 6:49 [facility] Refractometer SG,Urine 1.007 1.001 - 1.035 02/07/2018 6:49 [facility] Blood, UA 1+(A) Neg 02/07/2018 6:49 [facility] pH, UA 6.5 4.6 - 8.0 02/07/2018 6:49 [facility] Protein, UA Neg Neg 02/07/2018 6:49 [facility] Urobilinogen, UA Normal Normal E.U./dl 02/07/2018 6:49 [facility] Nitrite, UA Neg Neg 02/07/2018 6:49 [facility] Leuk Esterase 2+(A) Neg 02/07/2018 6:49 [facility] UA Method Used 02/07/2018 4:52 [facility] Comment: Testing performed using [employer] AU-4050. Urine RBC Count Automated 0 to 2 0 to 2 /HPF 02/07/2018 6:49 [facility] Urine WBC Count Automated 11 to 50(A) 0 to 3 /HPF 02/07/2018 6:49 [facility] Urine Squamous Epithelial Cell Count, Automated None seen None seen /LPF 02/07/2018 6:49 [facility] Urine Hyaline Casts, Automated < or = 10 < or = 10 /LPF 02/07/2018 6:49 [facility] Urine Bacteria Count, Automated Moderate(A) None seen 02/07/2018 6:49 [facility] UA Comment Sediment results 02/07/2018 6:49 [facility] Comment: are unreliable on urines unrefrig >2hrs or refrig >8hrs. Urine specimen (specimen) URINE / Unknown 02/07/2018 5:47 EDT 02/07/2018 6:10 EDT Lisa Champagne DO URINALYSIS ORDERAB LES [facility] [address] [place] [address] * ED/URGENT CARE ADD-ON (02/07/2018 5:25 EDT) Tests to be added PT 02/07/2018 5:26 EDT [facility] Comment:GLUCOSE, SERUM,MAGNE SIUM,HGB A1C,TSH,BNP Number for problems [id number] (ED) 02/07/2018 5:26 EDT [facility] TOPOGRAPHY UNKNOWN / Unknown 02/07/2018 5:25 EDT 02/07/2018 5:28 EDT Lisa Ashley MD HEMATOLOGY & PF4 OR DERABLES Performing Organization Address [facility] Co de Phone Number [facility] [address] [place] [address] * ED/URGENT CARE ADD-ON (02/07/2018 4:40 EDT) Tests to be added CBC WITH DIFF, CMP 02/07/2018 4:39 EDT [facility] Number for problems [id number] (ED) 02/07/2018 4:39 EDT [facility] TOPOGRAPHY UNKNOWN / Unknown 02/07/2018 4:40 EDT 02/07/2018 4:41 EDT Lisa Ashley MD HEMATOLOGY & PF4 OR DERABLES Performing Organization Address [facility]/ZIP Co de Phone Number [facility] [address] [place] [address] * (ABNORMAL) C REACTIVE PROTEIN (02/07/2018 4:23 EDT) C Reactive Protein 135.4(H) <10.0 mg/L 02/07/2018 8:45 EDT [facility] BLOOD SPECIMEN / Unknown 02/07/2018 4:23 EDT 02/07/2018 4:31 EDT Lisa Ashley MD CHEMISTRY & BLOOD G ORDERABLES Performing Organization Address [facility] Co de Phone Number [facility] [address] [place] [address] * TSH (02/07/2018 4:23 EDT) Pathologist [facility] TSH 0.83 0.47 - 4.68 uIU/ml 02/07/2018 6:47 EDT [facility] Comment: The results of this assay can be falsely lowered due to the consumption of Biotin. BLOOD SPECIMEN / Unknown 02/07/2018 4:23 EDT 02/07/2018 4:31 EDT Lisa Ashley MD CHEMISTRY & BLOOD G ORDERABLES Performing Organization Address [facility] de Phone Number [facility] [address] [place] [address] * (ABNORMAL) PROTIME (02/07/2018 4:23 EDT) [facility] Pro Time 15.0(H) 10.3 - 13.4 secs 02/07/2018 5:42 EDT [facility] I.N.R. 1.3(H) 0.9 - 1.1 Ratio 02/07/2018 5:42 EDT [facility] Comment: Moderate Intensity Coumadin INR = 2.0-3.0 Adjustments in anticoagulant therapy dose should be based upon the INR and NOT the Pro Time. BLOOD SPECIMEN / Unknown 02/07/2018 4:23 EDT 02/07/2018 4:31 EDT Lisa Ashley MD HEMATOLOGY & PF4 OR DERABLES Performing Organization Address [facility] Co de Phone Number [facility] [address] [place] [address] * (ABNORMAL) NT PRO BNP (02/07/2018 4:23 EDT) [facility] NT Pro BNP 2,360(H) <300 pg/ml 02/07/2018 6:35 EDT [facility] Comment: Reference Range: NT-proBNP values less than 300 pg/ml have a 99% negative predictive value for excluding acute congestive heart failure. A diagnostic NT-proBNP cutoff of 900 pg/ml has been suggested in adults over 50 years of age in the absence of renal failure. A cutoff of 1200 pg/ml for patients with an eGFR <60 yields a diagnostic sensitivity and specificity of 89% and 72% for acute congestive failure. The results of this assay can be falsely lowered due to the consumption of Biotin. BLOOD SPECIMEN / Unknown 02/07/2018 4:23 EDT 02/07/2018 4:31 EDT Lisa Ashley MD CHEMISTRY & BLOOD G ORDERABLES Performing Organization Address [facility] Co de Phone Number [facility] [address] [place] [address] * MAGNESIUM (02/07/2018 4:23 EDT) Magnesium 1.9 1.7 - 2.8 mg/dl 02/07/2018 6:17 EDT [facility] BLOOD SPECIMEN / Unknown 02/07/2018 4:23 EDT 02/07/2018 4:31 EDT Lisa Ashley MD CHEMISTRY & BLOOD G ORDERABLES Performing Organization Address [facility] de Phone Number [facility] [address] [place] [address] * HEMOGLOBIN A1C (02/07/2018 4:23 EDT) Hemoglobin A1C 6.3 % 02/07/2018 9:39 EDT [facility] Comment: Reference Range: <5.7% Normal 5.7-6.4% Prediabetes =>6.5% Diagnostic for diabetes (if confirmed) Goals for glycemic control in diabetes ADA 2017 For non adults with diabetes: ?? Target <7.5% For children and adolescents with type 1 diabetes: ?? Target <7.0% More or less stringent targets may be appropriate for individual patients. Est Avg Glucose 134 mg/dl 8 9:39 EDT [facility] Comment: eAG represents the A1c result expressed as average glucose in mg/dl. BLOOD SPECIMEN / Unknown 02/07/2018 4:23 EDT 02/07/2018 4:31 EDT Lisa Ashley MD CHEMISTRY & BLOOD G ORDERABLES [facility] [address] [place] [address] * (ABNORMAL) COMPREHENSIVE METABOLIC PANEL (CMP) (02/07/2018 4:23 EDT) Potassium 3.6 3.5 - 5.0 mEq/L 02/07/2018 5:03 [facility] Sodium 137 136 - 145 mEq/L 02/07/2018 5:03 [facility] Chloride 102 96 - 110 mEq/L 02/07/2018 5:03 [facility] CO2 24 22 - 32 mEq/L 02/07/2018 5:03 [facility] Total Alkaline Phosphatase 62 38 - 126 U/L 02/07/2018 5:03 [facility] Bilirubin, Total 1.2 <1.4 mg/dl 02/08/20 18 5:03 [facility] AST 19 15 - 46 U/L 02/07/2018 5:03 [facility] ALT 17(L) 21 - 72 U/L 02/07/2018 5:03 [facility] Albumin 4.1 3.4 - 4.9 g/dl 02/07/2018 5:03 [facility] Total Protein 6.3 6.3 - 8.2 g/dl 02/07/2018 5:03 [facility] Creatinine 1.14 0.66 - 1.25 mg/dl 02/07/2018 5:03 [facility] GFR, Calculated 62 >60 ml/min/1.7 3m2 02/07/2018 5:03 [facility] Comment: eGFR calculated using CKD-EPI equation for non Americans. Multiply eGFR by 1.16 for Americans. BUN 19 10 - 26 mg/dl 02/07/2018 5:03 [facility] Calcium 9.9 8.5 - 10.5 mg/dl 02/07/2018 5:03 [facility] Calculated Calcium 9.8 8.5 - 10.5 mg/dl 02/07/2018 5:03 [facility] Glucose, Serum 133(H) 70 - 100 mg/dl 02/07/2018 5:03 [facility] Fasting? Unknown 02/07/2018 4:41 [facility] BLOOD SPECIMEN / Unknown 02/07/2018 4:23 EDT 02/07/2018 4:31 EDT Lisa Ashley MD CHEMISTRY & BLOOD G ORDERABLES [facility] [address] [place] [address] * (ABNORMAL) COMPLETE BLOOD COUNT AND DIFFERENTIAL (02/07/2018 4:23 EDT) WBC 7.14 4.0 - 10.4 K/cmm 02/07/2018 4:46 [facility] RBC 4.92 4.36 - 5.78 M/cmm 02/07/2018 4:46 [facility] Hemoglobin 11.8(L) 13.8 - 17.3 gm/dl 02/07/2018 4:46 [facility] HCT 37.3(L) 39.5 - 50.2 % 02/07/2018 4:46 [facility] MCV 76(L) 81 - 95 fl 02/07/2018 4:46 [facility] MCH 24.0(L) 27.6 - 33.0 pg 02/07/2018 4:46 [facility] Hypochromia 1+ 02/07/2018 4:46 [facility] MCHC 31.6(L) 32.8 - 36.4 gm/dl 02/07/2018 4:46 [facility] RDW-CV 17.8(H) <14.2 % 02/07/2018 4:46 [facility] RDW-SD 48.4(H) <46.0 fl 02/07/2018 4:46 [facility] Anisocytosis 1+ 02/07/2018 4:46 [facility] PLT 150 141 - 377 K/cmm 02/07/2018 4:46 [facility] MPV 9.0(L) 9.5 - 12.7 fl 02/07/2018 4:46 [facility] % Neutrophils 71.8 % 02/07/2018 4:46 [facility] % Lymphocytes 15.3 % 02/07/2018 4:46 [facility] % Monocytes 10.4 % 02/07/2018 4:46 [facility] % Eosinophils 0.8 % 02/07/2018 4:46 [facility] % Basophils 0.4 % 02/07/2018 4:46 [facility] % Immature Grans 1.3 % 02/08/20 18 4:46 [facility] ABS Neutrophils 5.13 2.20 - 8.85 K/cmm 02/07/2018 4:46 [facility] ABS Lymphs 1.09 1.09 - 3.30 K/cmm 02/07/2018 4:46 [facility] ABS Monocytes 0.74 0.1 - 0.8 K/cmm 02/07/2018 4:46 [facility] ABS Eosinophils 0.06 0.03 - 0.61 K/cmm 02/07/2018 4:46 [facility] ABS Basophils 0.03 0.01 - 0.11 K/cmm 02/07/2018 4:46 [facility] ABS Immature Grans 0.09(H) 0 - 0.06 K/cmm 02/07/2018 4:46 [facility] Type of Diff: Automated 02/07/2018 4:46 [facility] BLOOD SPECIMEN / Unknown 02/07/2018 4:23 EDT 02/07/2018 4:31 EDT Lisa Ashley MD PACKAGES & DNA PROB E ORDERABLES Performing Organization Address [facility] Co de Phone Number [facility] [address] [place] [address] * HOLD LAVENDER TOP (02/07/2018 4:23 EDT) Hold Purple Top EDTA for hematology will be discarded after 48 hours, differential not available after 12 hours. 02/07/2018 4:15 EDT [facility] Blood specimen (specimen) BLOOD SPECIMEN / Unknown 02/07/2018 4:23 EDT 02/07/2018 4:31 EDT Lisa Ashley MD LAB INFO SERVICE AN D SUPPORT & PHONE RESULT Performing Organization Address [facility] Co de Phone Number [facility] [address] [place] [address] * HOLD SST (02/07/2018 4:23 EDT) Hold SST Hold for further testing. Specimen will be held for 5 days. 02/07/2018 4:15 EDT [facility] Blood specimen (specimen) BLOOD SPECIMEN / Unknown 02/07/2018 4:23 EDT 02/07/2018 4:31 EDT Lisa Ashley MD LAB INFO SERVICE AN D SUPPORT & PHONE RESULT Performing Organization Address [facility]/ZIP Co de Phone Number [facility] [address] [place] [address] * HOLD BLUE TOP (02/07/2018 4:23 EDT) Hold Blue Top Sample for coagulation will be discarded after 4 hours 02/07/2018 4:52 EDT [facility] Blood specimen (specimen) BLOOD SPECIMEN / Unknown 02/07/2018 4:23 EDT 02/07/2018 4:31 EDT Lisa Ashley MD LAB INFO SERVICE AN D SUPPORT & PHONE RESULT [facility] [address] [place] [address] * (ABNORMAL) TROPONIN I (02/07/2018 4:23 EDT) Troponin I (ng/mL) 0.103(H) <0.034 ng/ml 02/07/2018 5:03 EDT [facility] Comment: The results of this assay can be falsely lowered due to the consumption of Biotin. Blood specimen (specimen) BLOOD SPECIMEN / Unknown 02/07/2018 4:23 EDT 02/07/2018 4:30 EDT Lisa Ashley MD CHEMISTRY & BLOOD G ORDERABLES [facility] [address] [place] [address] * EKG 12-LEAD (02/07/2018 4:21 EDT) 02/07/2018 4:21 EDT Narrative [facility] EKG - 02/09/2018 10:49 EDT ?[facility] Emergency ? Test Date: ?2018-02-07 Pat Name: ? SERGE CABRERA ? Department: ?? ED ? Room: ? Gender: ? Male ? 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 [id number] : ?1940 ? Requested By: DELMI Peck Number: [id number] ? Reading MD: ?? JUVE ANGEL ? Measurements Intervals ?[place] ? Rate: ? 74 ? P: ?44 FL: ? 247 ?QRS: ?61 QRSD: ? 97 ? T: ?-75 QT: ? 409 ? QTc: ?454 ? Interpretive Statements SINUS RHYTHM WITH FIRST DEGREE AV BLOCK WITH OCCASIONAL SUPRAVENTRICULAR PREMATURE COMPLEXES ST DEVIATION AND MODERATE T-WAVE ABNORMALITY, CONSIDER LATERAL ISCHEMIA ST DEVIATION AND MODERATE T-WAVE ABNORMALITY, CONSIDER INFERIOR ISCHEMIA No previous ECG available for comparison I reviewed the tracing and have either agreed or edited the findings in this report. Electronically Signed On 02-09-2018 10:49:03 EDT by JUVE ANGEL. Procedure Note Juve Angel MD - 02/09/2018 [facility] Emergency Test Date: 2018-02-07 Pat Name: SERGE CABRERA Department: ED Room: Gender: Male Livestock Handler: [id number] : 1940 Requested By: DELMI Galan Order Number: [id number] Reading MD: JUVE ANGEL Measurements Intervals [place] Rate: 74 P: 44 FL: 247 QRS: 61 QRSD: 97 T: -75 QT: 409 QTc: 454 Interpretive Statements SINUS RHYTHM WITH FIRST DEGREE AV BLOCK WITH OCCASIONAL SUPRAVENTRICULAR PREMATURE COMPLEXES ST DEVIATION AND MODERATE T-WAVE ABNORMALITY, CONSIDER LATERAL ISCHEMIA ST DEVIATION AND MODERATE T-WAVE ABNORMALITY, CONSIDER INFERIOR ISCHEMIA No previous ECG available for comparison I reviewed the tracing and have either agreed or edited the findings inthis report. Electronically Signed On 02-09-2018 10:49:03 EDT by KELSIE. 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 Coronary artery disease involving shoalwater coronary artery of shoalwater heart, angina presence unspecified CAD (coronary artery disease) Coronary atherosclerosis of unspecified type of vessel, shoalwater or graft documented in this encounter Administered Medications Inactive Administered Medications - up to 3 most recent administrations Medication Order MAR Action Action Date Dose Rate Site allopurinol (ZYLOPRIM) tablet 200 mg 200 mg, oral, DAILY, First dose on Mon02/07/18 at 0900, Until Discontinued, Routine Given 02/07/2018 8:31 EDT 200 mg aspirin chewable tablet 81 mg 81 mg, oral, DAILY, First dose on Mon02/07/18 at 0900, Until Discontinued, Routine Given 02/07/2018 8:30 EDT 81 mg bisoprolol (ZEBETA) tablet 2.5 mg 2.5 mg, oral, DAILY, First dose on Mon02/07/18 at 0900, Until Discontinued Given 02/07/2018 8:31 EDT 2.5 mg chlorthalidone (HYGROTON) tablet 25 mg 25 mg, oral, DAILY, First dose on Mon02/07/18 at 0900, Until Discontinued, Routine Given 02/07/2018 8:30 EDT 25 mg clopidogrel (PLAVIX) tablet 75 mg 75 mg, oral, DAILY, First dose on Mon02/08/18 at 0900, Until Discontinued, Routine heparin 1,000 unit/mL injection 3,400 Units 3,400 Units (rounded from 3,381 Units = 35 Units/kg ? 96.6 kg Adjusted weight), intravenous, PRN, Starting on Mon02/07/18 at 0520, Until Mon02/07/18 at 1739, Other, Per Heparin Protocol, Routine heparin 1,000 unit/mL injection 6,800 Units 6,800 Units (rounded from 6,762 Units = 70 Units/kg ? 96.6 kg Adjusted weight), intravenous, PRN, Starting on Mon02/07/18 at 0520, Until Mon02/07/18 at 1739, Other, Per Heparin Protocol, Routine heparin in 1/2 NS 25,000 unit/250 mL infusion 12 Units/kg/hr ? 96.6 kg Adjusted weight (11.592 mL/hr, rounded to 11.6 mL/hr), intravenous, CONTINUOUS, Starting on Mon02/07/18 at 0530, Until Mon02/07/18 at 1739, Routine Rate Documented 02/07/2018 10:06 EDT 15 Units/kg/hr 14.5 mL/hr New Bag 02/07/2018 5:55 EDT 15 Units/kg/hr 14.5 mL/hr losartan (COZAAR) tablet 25 mg 25 mg, oral, DAILY, First dose on Mon02/07/18 at 0900, Until Discontinued, Routine Given 02/07/2018 8:30 EDT 25 mg pantoprazole (PROTONIX) tablet 40 mg 40 mg, oral, DAILY, First dose on Mon02/07/18 at 0900, Until Discontinued Given 02/07/2018 8:30 EDT 40 mg rosuvastatin (CRESTOR) tablet 20 mg 20 mg, oral, DAILY, First dose on Mon02/07/18 at 0900, Until Discontinued, Routine Given 02/07/2018 8:30 EDT 20 mg documented in this encounter Historical Medications * This list may reflect changes made after this encounter. Medication Sig Dispensed Refills Start Date End Date losartan (COZAAR) 25 mg tablet Take 25 mg by mouth daily. selenium 100 mcg tablet Take 200 mcg by mouth daily. rosuvastatin (CRESTOR) 10 mg tablet Take 20 mg by mouth daily. omeprazole (PRILOSEC) 20 mg capsule Take 20 mg by mouth daily. glucosamine HCl (GLUCOSAMINE, BULK, MISC) by misc (non-drug; combo route) route. ergocalciferol, vitamin D2, (VITAMIN D ORAL) Take by mouth. chlorthalidone (HYGROTON) 25 mg tablet Take 25 mg by mouth daily. bisoprolol fumarate (ZEBETA ORAL) Take 2.5 mg by mouth daily. aspirin chewable 81 mg tablet Take 81 mg by mouth daily. allopurinol (ZYLOPRIM) 100 mg tablet Take 200 mg by mouth daily. acetaminophen (TYLENOL) 500 mg tablet Take 500 mg by mouth every 6 hours as needed for Pain. added in this encounter Active and Recently Administered Medications Times are shown in EDT. Scheduled Medication Order 02/05/2018 02/06/2018 02/07/2018 allopurinol (ZYLOPRIM) tablet 200 mg 200 mg, oral, DAILY, First dose on Mon02/07/18 at 0900, Until Discontinued, Routine 0831 (Given - Provid er: Verónica Hamilton RN) aspirin chewable tablet 81 mg 81 mg, oral, DAILY, First dose on Mon02/07/18 at 0900, Until Discontinued, Routine 0830 (Given - Provid er: Verónica Hamilton RN) bisoprolol (ZEBETA) tablet 2.5 mg 2.5 mg, oral, DAILY, First dose on Mon02/07/18 at 0900, Until Discontinued 0831 (Given - Provid er: Verónica Hamilton RN) chlorthalidone (HYGROTON) tablet 25 mg 25 mg, oral, DAILY, First dose on Mon02/07/18 at 0900, Until Discontinued, Routine 0830 (Given - Provid er: Verónica Hamilton RN) clopidogrel (PLAVIX) tablet 300 mg 300 mg, oral, NOW X1, 1 dose, On Mon02/07/18 at 1345, Routine 1423 (Not Given - Pr ovider: Verónica Hamilton RN - Reason: Change in condition - Comment: hold per MD, patient will not need heart cath procedure.) clopidogrel (PLAVIX) tablet 75 mg 75 mg, oral, DAILY, First dose on Kimberly 02/08/18 at 0900, Until Discontinued, Routine losartan (COZAAR) tablet 25 mg 25 mg, oral, DAILY, First dose on Mon02/07/18 at 0900, Until Discontinued, Routine 0830 (Given - Provid er: Verónica Hamilton RN) pantoprazole (PROTONIX) tablet 40 mg 40 mg, oral, DAILY, First dose on Mon02/07/18 at 0900, Until Discontinued 0830 (Given - Provid er: Verónica Hamilton RN) rosuvastatin (CRESTOR) tablet 20 mg 20 mg, oral, DAILY, First dose on Mon02/07/18 at 0900, Until Discontinued, Routine 0830 (Given - Provid er: Verónica Hamilton RN) sodium chloride 0.9 % flush 3 mL 3 mL, intravenous, EVERY 8 HOURS, First dose on Mon02/07/18 at 0800, Until Discontinued, Routine 0814 (Not Given - Pr ovider: Verónica Hamilton RN - Reason: Other - Comment: infusing IV) Continuous Medication Order 02/05/2018 02/06/2018 02/07/2018 heparin in 1/2 NS 25,000 unit/250 mL infusion 12 Units/kg/hr ? 96.6 kg Adjusted weight (11.592 mL/hr, rounded to 11.6 mL/hr), intravenous, CONTINUOUS, Starting on Mon02/07/18 at 0530, Until Mon02/07/18 at 1739, Routine 0555 (New Bag - Prov ider: Cynthia Baker RN)1006 (Rate Documented - Provider: Verónica Hamilton RN)1324 (Paused - Provider: Verónica Hamilton RN - Comment: UFH >1)1424 (Completed - Provider: Verónica Hamilton RN - Comment: hold per MD - patient no longer needs heart cath) PRN Medication Order 02/05/2018 02/06/2018 02/07/2018 acetaminophen (TYLENOL) tablet 650 mg 650 mg, oral, EVERY 4 HOURS PRN, Starting on Mon02/07/18 at 0428, Until Mon02/07/18 at 1739, Pain, Routine heparin 1,000 unit/mL injection 3,400 Units(Linked Group 1) 3,400 Units (rounded from 3,381 Units = 35 Units/kg ? 96.6 kg Adjusted weight), intravenous, PRN, Starting on Mon02/07/18 at 0520, Until Mon02/07/18 at 1739, Other, Per Heparin Protocol, Routine heparin 1,000 unit/mL injection 6,800 Units(Linked Group 1) 6,800 Units (rounded from 6,762 Units = 70 Units/kg ? 96.6 kg Adjusted weight), intravenous, PRN, Starting on Mon02/07/18 at 0520, Until Mon02/07/18 at 1739, Other, Per Heparin Protocol, Routine Linked Groups Order Group 1: heparin 1,000 unit/mL injection 6,800 UnitsJump to med 6,800 Units (rounded from 6,762 Units = 70 Units/kg ? 96.6 kg Adjusted weight), intravenous, PRN, Starting on Mon02/07/18 at 0520, Until Mon02/07/18 at 1739, Other, Per Heparin Protocol, Routine Or heparin 1,000 unit/mL injection 3,400 UnitsJump to med 3,400 Units (rounded from 3,381 Units = 35 Units/kg ? 96.6 kg Adjusted weight), intravenous, PRN, Starting on Mon02/07/18 at 0520, Until Mon02/07/18 at 1739, Other, Per Heparin Protocol, Routine documented in this encounter Orders Medications Ordered That Maxi ht Not Have Been Administered Count Last Ordered Date First Ordered Date acetaminophen (TYLENOL) tablet 650 mg clopidogrel (PLAVIX) tablet 300 mg 2017 clopidogrel (PLAVIX) tablet 75 mg 1 018 heparin 1,000 unit/mL inject ion 3,400 Units 02/07/2018 heparin 1,000 unit/mL inject ion 6,800 Units 02/07/2018 sodium chloride 0.9 % flush 3 mL 1 02/08/20 18 Diet Count Last Ordered Date First Orde red Date DISCHARGE DIET 3 02/07/2018 Nursing Count Last Ordered Date First Orde red Date ACTIVITY INSTRUCTIONS 1 02/07/2018 AMBULATE PATIENT 1 02/07/2018 BATHING INSTRUCTIONS 02/07/2018 ED TELEMETRY MONITORING 02/07/2018 HEIGHT AND WEIGHT 1 02/07/2018 INSERT SALINE LOCK 1 02/07/2018 MEASURE WEIGHT 1 02/07/2018 NOTIFY PHYSICIAN (SPECIFY) 2 02/07/2018 NURSING ORDER: HEPARIN ROQUE COL (CARDIAC INDICATION) 1 02/07/2018 PULSE OXIMETRY 1 02/07/2018 VITAL SIGNS 1 02/07/2018 VTE PHARMACOLOGIC PROPHYLAXI S CURRENTLY ORDERED OR ON ALTERNATIVE THER 1 02/07/2018 WOUND CARE INSTRUCTIONS 2 02/07/2018 Admission Count Last Ordered Date First Orde red Date STATUS: INPATIENT ACUTE ADMISSION 1 018 Transfer Count Last Ordered Date First Orde red Date CHANGE ATTENDING TO: 1 02/07/2018 UR PATIENT STATUS CHANGE 2 02/07/2018 Discharge Count Last Ordered Date First Orde red Date DISCHARGE PATIENT 1 02/07/2018 Legal Count Last Ordered Date First Orde red Date MISCELLANEOUS DISCHARGE INSTRUCTIONS 2 01/24 documented in this encounter Care Teams Engraver Flatware Relationship Specialty Start Date End Date Devorah Epstein MD [address] [place] [phone] PCP - General 11/04/15 documented as of this encounter
--- OUTSIDE RECORDS SUMMARY | 2024-01-22 03:00 | XMS_ITS | Encounter Summary ---
Author Organization [facility] Address [address] [place] [address] Care Team Providers Care Information Coder Name Role Phone Unavailable Primary Care Provider Unavailabl e Encounter Details Date Type Department Care Team (Latest Contact Info) Description 10/30/2015 8:20 EDT - 10/30/2015 23:59 EDT Hospital Encounter [address] [address] Unknown, Provider, Discharge Disposition: Home or Self Care Social History Tobacco Use Types Packs/Day Years Used Date Smoking Tobacco: Never Assessed Sex and Gender Information Value Date Recorded Sex Assigned at Not on file Gender Identity Not on file Sexual Orientation Not on file documented as of this encounter Discharge Disposition Disposition Code Departure Means Destination Home or Self [place] documented in this encounter Plan of Treatment Not on file documented as of this encounter Visit Diagnoses Not on filedocumented in this encounter
--- OUTSIDE RECORDS SUMMARY | 2024-01-22 03:00 | XMS_ITS | Encounter Summary ---
Author Organization [facility] Address [address] [place] [address] Care Team Providers Care Doctor Of Nurse Anesthesia Practice Name Role Phone Unknown, Provider Primary Care Provider [phone] Encounter Details Date Type Department Care Team ([facility] st Contact Info) Description 10/30/2015 Results Only [facility] [phone] Audi Srivastava DPM [address] [place] [phone] Social History Tobacco Use Types Packs/Day Years Used Date Smoking Tobacco: Never Assessed Sex and Gender Information Value Date Recorded Sex Assigned at Not on file Gender Identity Not on file Sexual Orientation Not on file documented as of this encounter Plan of Treatment Not on file documented as of this encounter Procedures Procedure Name Priority Date/Time Associated Diagnosis Comments SURGICAL PATHOLOGY Routine 10/30/2015 10 :38 EDT documented in this encounter Results * SURGICAL PATHOLOGY (10/30/2015 10:38 EDT) Pathology Report: SURGICAL PATHOLOGY REPORT Reports generated via electronic interface contain original data; however they are lacking the format of the original report. Caution should be taken when reading/interpreti ng unformatted reports. Name: ? SERGE MARKS ? Accession #: ? [id number] ? : ? 1940 (Age: 75) ??M ? Collect Date: ? 10/30/2015 ? Location: ? [facility] ? Receive Date: ? 10/31/2015 ? Provider: AUDI SRIVASTAVA DPM Copy to: VIRAJ BAHENA MD ? Final Pathologic Diagnosis: A. SUBMITTED CRYSTALS, RIGHT 2ND TOE: - ??Fragments of skin and soft tissue with tophi. - ??Negatively birefringent needle-shaped crystals diagnostic of urate identified. B. TOE, RIGHT 2ND, AMPUTATION: - ??Epidermal ulceration with extensive underlying tophi consistent with gout, focal acute inflammation and reactive epithelial and stromal changes. - ??Osteocartilagino us tissue with degenerative changes. - ??No evidence of osteomyelitis. - ??Margins of resections appear viable. Document reviewed and electronically signed by: DANIEL CANCINO MD Report ??Date: 11/06/2015 13:53 By the signature above, the attending physician certifies that he/she has personally conducted a gross and/or microscopic examination of the described specimens and rendered or confirmed the above diagnosis. Specimen(s) Received: A. ??Right second toe B. ??Amp right second toe Clinical History: Hammer toe, gout with chronic ulcer; A. Dry crystals, evaluate for gout; B. R/O osteomyelitis, chronic ulcer Gross Description: A. ?Received in 100% ethanol labelled with proper patient identification (initials C, P) and 1 are three cruz-white irregular firm fragments (ranging in size from 0.1 x 0.1 x 0.1 cm to 0.6 x 0.3 x 0.3 cm). The specimen is entirely submitted as A1 and A2 in 100% ethanol. B. ?Received in formalin labelled with proper patient identification (initials C, P) and 2 is a toe amputation of a nodular toe (3.5 cm from proximal to distal x 2.5 cm from medial to lateral x 2.3 cm from dorsal to plantar), that has been amputated through the distal metatarsal joint. ? On the dorsal surface there is a raised cruz-white ulcer (0.5 x 0.4 x 0.1 cm). The underlying bone is hard and intact. The ulcer is 0.9 cm from the proximal soft tissue margin. The unguis is yellow and thickened. The remaining skin is white and scaly. The bone at the proximal margin is normal appearing and the bone and soft tissue at the margin appear viable. The proximal margin is inked black. Serial sectioning reveals a deposition of chalky white firm material underlying the subcutaneous ulceration. ? Director Of Catering sections are submitted as follows: BLOCK VANEGAS B1- ??ulceration to soft tissue margin B2- ??distal bone margin, en face, submitted for decalcification B3- ??cutaneous tissue with chalky cruz-white firm material Dr. Nix 11/02/2015 4:22 PM End of Report [facility] 10/30/2015 10:3 8 EDT 10/31/2015 10:38 EDT Audi Srivastava DPJacquie PATHOLOGY ORDERA CONSUELO [facility] [address] [place] [address] documented in this encounter Visit Diagnoses Not on filedocumented in this encounter Care Teams Doctor Of Nurse Anesthesia Practice Relationship Specialty Start Date End Date Unknown, Provider, PCP - General 11/02/15 11/03/15 documented as of this encounter
--- OUTSIDE RECORDS SUMMARY | 2024-01-22 03:00 | XMS_ITS | Encounter Summary ---
[place] [address] Care Team Providers Care Site Foreman Name Role Phone Devorah Epstein MD Primary Care Provider [phone] Reason for Visit * Reason Onset Date Comments Post Procedure Call 12/12/2023 Encounter Details Date Type Department Care Team (Late st Contact Info) Description 12/12/2023 Notes Only Cardiology at [address] [phone] Jovanna Eduardo, RN Post Procedure Call (/) Social History Tobacco Use Types Packs/Day Years Used Date Smoking Tobacco: Former Smokeless Tobacco: Never Alcohol Use Standard Drinks/Week Comments No 0 (1 standard drink = 0.6 oz pur e alcohol) [facility] Utilities Answer Date Recorded In the past 12 months has [employer], gas, oil, or water [employer] threatened to shut off services in your home? No 12/04/2023 Hunger Vital Sign Answer Date Recorded Within the past 12 months, y ou worried that your food would run out before you got the money to buy more. Never true 12/04/19 24 Within the past 12 months, t he food you bought just didn't last and you didn't have money to get more. Never true 12/04/2023 PRAPARE - Transportation Answer Date Re corded In the past 12 months, has l ack of transportation kept you from medical appointments or from getting medications? No 11/24 In the past 12 months, has l ack of transportation kept you from meetings, work, or from getting things needed for daily living? No 12/04/2023 Housing Stability Vital Sign Answer Alin e Recorded In the last 12 months, was t here a time when you were not able to pay the mortgage or rent on time? No 12/04/2023 In the past 12 months, how m any times have you moved where you were living? 1 12/04/2023 At any time in the past 12 m [facility], were you homeless or living in a longterm (including now)? No 12/04/2023 DH IPV Inpatient Questions Answer Date Recorded Does Anyone Try to Keep You From Having Contact with Others or Doing Things Outside Your Home? no 12/03/2023 Feels Threatened by Someone no 02/2024 Feels Unsafe at Home or Work/School no 12/03/2023 Physical Signs of Abuse Present no 12/03/2023 Sex and Gender Information Value Date Recorded Sex Assigned at Not on file Gender Identity Not on file Sexual Orientation Not on file documented as of this encounter Progress Notes * Jovanna Eduardo, RN - 12/12/2023 9:13 AM EDTSummary: Post Procedure Call: Leadless Pacemaker Implant EP RN Post-Procedure Note: Date of Follow Up Call: 12/12/2023 Spoke With: Patient Unavailable Type: Left Voicemail Procedure Type (choose all that apply): Pacemaker Leadless Pacemaker: Yes Performing : Juanpablo Date of Procedure: 12/05/2023 Date of Discharge: 12/06/2023 Follow Up EP Visit Scheduled?: No No Follow Up Visit Reason: Note sent to EP scheduleing department Intra or Post Procedure Event: Did any Intra or Post Procedure Events Occur?: No Medications at Hospital Discharge: Aspirin: Yes P2Y12 Inhibitor: No Other Antiplatelet: No Warfarin: No DOAC: No Other Anticoagulant: No Beta Barbara (any): Yes Digoxin: No Diltiazem/Verapamil: No Amiodarone: No Dofetilide: No Dronedarone: No Flecainide: No Propafenone: No Sotalol: No PPI: Yes Other Antiarrhythmic: No Assessment: Free Text Note: Follow Up Instruction: Wound Care: Catheter Insertion Area Care - You may take a shower if you wish the morning after the procedure. Wash the area with soap and water. - Look for signs of infection over the next several days. - A little spot of blood at the catheter insertion area is not unusual. A bruise or a small lump under the skin is normal; they generally disappear in three or four days. In some cases you may develop a larger bruise that may appear to extend somewhat down your thigh; this is normal and will resolve, generally within 1-2 weeks. - Expect some mild tenderness over the area where the catheter was inserted. This should improve during the 24 to 48nhours after the procedure. - Take Tylenol if needed and contact your doctor if the discomfort worsens. Avoid higher-dose ibuprofen (greater than 400mg twice daily) due to increased bleeding risk while on blood thinners (does not include aspirin). Problems to Watch For If there is bright red blood flowing from the catheter insertion area STOP what you are doing and lie down. Hold pressure steadily on the area for fifteen minutes. Call for help. If the bleeding does not stop in fifteen minutes, call 911. If there is rapid swelling with a black and blue color at the catheter insertion area, there may be bleeding inside. Call your doctor if there is any increase in size. Check the insertion site for the next few days at home. Signs of infection are: Redness Swelling Yellow, white, green or brown, foul smelling drainage Increased soreness If you think there is an infection, take your temperature. Then call your doctor. The limb on the side where you had the catheter inserted should look and feel normal in its color, sensation and temperature. If your leg becomes cool, pale, blue or changing color with numbness and tingling, contact your doctor. If you feel faint or dizzy, lie down with your feet elevated. Have someone call the doctor. If you are alert, drink fluids. Activity - Do not bend over, strain or lift heavy objects for 48 hours after the procedure. - Do not participate in active sports for 1 week. - Avoid heavy lifting (greater than 10 pounds) for one week following your procedure. Additional discharge instructions: Pt advised to be vigilant for any of the following clinical findings (or anything else out of the ordinary): Bleeding, pain, or swelling at any sheath/catheter insertion site. Sometimes this may develop even days after discharge, and there may then be a need to examine this and alter the anticoagulation medications. It is good to be up and around after the ablation procedure, but heavy lifting and straingshould be avoided for the first 3-5 days. This is not an exhaustive list. If the patient experiences anything out of the ordinary post-procedure, he/she is encouraged to contact his/her physician or the Cardiac Electrophysiology Service ([phone]). Arm Restrictions: - Do not raise your elbow on the operated side above the shoulder for 6 weeks - Do not lift greater than 7 pounds (equal to a gallon of milk) on the operated side for 6 weeks. - Do not fully extend this arm in any direction away from the torso for 6 weeks - You may use your arm on the operated side, but do not make extreme movement (such as stretching or reaching for a heavy object) for 6 weeks - No driving for maximum of 1 week documented in this encounter Plan of Treatment Upcoming Encounters Date Type Department Care Team (Late st Contact Info) Description 03/28/2024 10:00 AM EDT Hospital Encounter Non-[place] [phone] Arrived documented as of this encounter Visit Diagnoses Not on filedocumented in this encounter Care Teams Site Foreman Relationship Specialty Start Date End Date Devorah Epstein MD [address] [place] [address] PCP - General Family Medicine 09/01/17 documented as of this encounter
--- OUTSIDE RECORDS SUMMARY | 2024-01-22 03:00 | XMS_ITS | Encounter Summary ---
Author Organization [facility] Address [address] [place] [address] Care Team Providers Care Center Director Name Role Phone Devorah Epstein MD Primary Care Provider [phone] Encounter Details Date Type Department Care Team (Late st Contact Info) Description 02/07/2018 13:20 EDT - 02/07/2018 13:23 EDT Hospital Encounter [address] [id number] Lisa Ashley MD [address] [place] [address], [address] [place] [phone] Discharge Disposition: Discharged to Other Facility Social History Tobacco Use Types Packs/Day Years Used Date Smoking Tobacco: Never Smokeless Tobacco: Never Alcohol Use Standard Drinks/Week Comments No 0 (1 standard drink = 0.6 oz pur e alcohol) Sex and Gender Information Value Date Recorded Sex Assigned at Not on file Gender Identity Not on file Sexual Orientation Not on file documented as of this encounter Discharge Diagnoses Diagnosis I21.4 Non-ST elevation (NSTEMI) myocardial infarction-I21.4[ICD-10-CM] I10 Essential (primary) hypertension-I10[ICD-10-CM] Q61.3 Polycystic kidney, unspecified-Q61.3[ICD-10-CM] K21.9 Gastro-esophageal reflux disease without esophagitis-K21.9[ICD-10-CM] 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-I25.10[ICD-10-CM] Z95.1 Presence of aortocoronary bypass graft-Z95.1[ICD-10-CM] J90 Pleural effusion, not elsewhere classified-J90[ICD-10-CM] G47.33 Obstructive sleep apnea (adult) (pediatric)-G47.33[ICD-10-CM] documented in this encounter Medications at Time [...] 02/10/2018 02/17/2018 documented as of this encounter Discharge Disposition Disposition Code Departure Means Destination Discharged to Other Facility documented in this encounter Plan of Treatment Not on file documented as of this encounter Visit Diagnoses Not on filedocumented in this encounter Care Teams Center Director Relationship Specialty Start Date End Date Devorah Epstein MD [address] [place] [phone] PCP - General 11/04/15 documented as of this encounter
--- OUTSIDE RECORDS SUMMARY | 2024-01-22 03:00 | XMS_ITS | Encounter Summary ---
Author Organization [facility] Address [address] [place] [address] Care Team Providers Care Extension Service Agent Name Role Phone Devorah Epsteni MD Primary Care Provider [phone] Encounter Details Date Type Department Care Team (Late st Contact Info) Description 08/24/2017 Historical Results Only [facility] Cardiology Clinic [address] [place] [id number] Unknown, Provider, Social History Tobacco Use Types Packs/Day Years Used Date Smoking Tobacco: Never Assessed Sex and Gender Information Value Date Recorded Sex Assigned at Not on file Gender Identity Not on file Sexual Orientation Not on file documented as of this encounter Plan of Treatment Not on file documented as of this encounter Procedures Procedure Name Priority Date/Time Associated Diagnosis Comments EXERCISE ECHOCARDIOGRAM STRESS TEST 08/24/2017 14:03 EST documented in this encounter Results * EXERCISE ECHOCARDIOGRAM STRESS TEST (08/24/2017 14:03 EST) Anatomical Region Laterality Modality Ultrasound 08/24/2017 14:0 3 EST Narrative 08/24/2017 14:03 EST ? [facility] ?[facility] ?[address] [place] [id number] ? [id number] ?C A R D I A C ?S T R E S S ?T E S T ?R E P O R T NAME: SERGE MARKS ? : 40 TELEPHONE: [phone] ? MR#: [id number] ? *[facility]* *[facility]* [address] [place] [address] Date of study: 08/24/2017 Stress Echocardiography Dario protocol 2D, limited spectral Doppler, and color Doppler *STUDY CONCLUSIONS* Impressions: ??LVOT obstruction maximum 2 m/s with Valsalva and with and after exercise. Significant EKG changes with exercise. Normal LV function with exercise; no stress echo imaging performed. This study assessed LVOT gradient with exercise. Summary: 1. Procedure narrative: Treadmill exercise testing was performed using ?? the Dario protocol. The patient exercised for 4 min, to protocol ?? stage 2, to a maximal work rate of 5mets. 2. Stress: Maximal heart rate during stress was 140bpm (98% of maximal ?? predicted heart rate). The maximal predicted heart rate was 143bpm. 3. Stress ECG conclusions: Carlson scoring: exercise time of 4min; maximum ?? ST deviation of 2mm; no angina; resulting score is -6. This score ?? predicts a moderate risk of cardiac events. *PATIENT PRESENTATION* Height: ? 182.9cm ((72in) ) S/D Pressure: Weight: ? 132.5kg ((291.4lb) ) BSA: ?2.65m S 2 ORDERING ?? Cristobal Marie MD REFERRING ??Cristobal Marie MD *PROCEDURE DATA* Procedure information: ??Cristobal Marie MD supervised and was present for the performance of the entire procedure. This study was interpreted by [facility]. Pertinent images and digital data are archived for permanent storage and are available for subsequent review. ??Study status: ? [facility] ?[facility] ?[address] [place], [place] [address] ? [id number] ?C A R D I A C ?S T R E S S ?T E S T ?R E P O R T NAME: SERGE MARKS ? : 40 TELEPHONE: [phone] ? MR#: [id number] ? Routine. Stress echocardiography. ??2D, limited spectral Doppler, and color Doppler. ??Consent: ??The risks, benefits, and alternatives to the procedure were explained to the patient and consent was verbally obtained. ??Barriers to education: ??No barriers to education identified. Initial setup. The patient was brought to the laboratory. A baseline ECG was recorded. Surface ECG leads and manual cuff blood pressure measurements were monitored. Treadmill exercise testing was performed using the Dario protocol. The patient exercised for 4 min, to protocol stage 2, to a maximal work rate of 5mets. A Transthoracic stress echocardiogram was performed. Images were captured at baseline and peak exercise. ??Study completion: ??The patient tolerated the procedure well. There were no complications. History: ?PMH: ??SCREENING TODAY FOR AN EXERCISE INDUCED LVOT GRADIENT AND OR ARRHYTHMIA. NO C/O CHEST PAIN. SOB NOTED WITH WALKING UPHILLS. 05/2017- ECHO- LVEF 55-605, SEVERE LVH, NO WMA. ??Risk factors: ??Family history of coronary artery disease. Hypertension. Dyslipidemia. MEDS: CHLORTHALIDONE 25 MG, VALSARTAN/ HCTZ 160- 12.5 MG, OMEPRAZOLE, ASA 81 MG, AMLODIPINE 5 MG, METOPROLOL 50 MG BID, DHEA. *CARDIAC ANATOMY* Baseline ECG: ??NSR- [address] WAVE ABNORMALITIES. Stress protocol: + +---+ +--------+ !Stage ?!HR !BP (mmHg) ?? !Symptoms! + +---+ +--------+ !Baseline supine ?!92 !149/88 (108)!None ?! + +---+ +--------+ !Baseline standing ?!100!158/90 (113)!--------! + +---+ +--------+ !Stage 1; 1.7mph, 10degrees; 3 min!123!177/67 (104)!--------! + +---+ +--------+ !Stage 2; 2.5mph, 12degrees; 3 min!140! !--------! + +---+ +--------+ !Peak stress ?!140! !--------! + +---+ +--------+ !Recovery; 1 min ?!124! !--------! + +---+ +--------+ !Recovery; 3 min ?!106!169/82 (111)!--------! + +---+ +--------+ !Recovery; 6 min ?!100! !--------! + +---+ +--------+ * Stress results: ?? Maximal heart rate during stress was 140bpm (98% of maximal predicted heart rate). The maximal predicted heart rate was ? [facility] ?[facility] ?[address] [place], [place] [address] ? [id number] ?C A R D I A C ?S T R E S S ?T E S T ?R E P O R T NAME: ALCIRASTANSERGE Thomas ? : 40 TELEPHONE: [phone] ? MR#: [id number] ? 143bpm. The rate-pressure product for the peak heart rate and blood pressure was 57347jz Hg/min. Stress ECG: DECREASED FUNCTIONAL CAPACITY POOR EXERCISE YENNIFER- 5 METS ( 4 MINUTES IN DARIO PROTOCOL- STOPPED DUE TO KNEE PROBLEMS) MAX HR- 140 BPM OCC PVC'S, ONE TRIPLET NORMAL BP RESPONSE NO CHEST PAIN ECG ABNORMAL AT REST- ADDITIONAL [address] HORIZONTAL DEPRESSION IN 2,3,AVF,V5,V6. Carlson scoring: exercise time of 4min; maximum ST deviation of 2mm; no angina; resulting score is -6. This score predicts a moderate risk of cardiac events. Measurements Left ventricle ?Value ?Reference LV ID, ED, PLAX ? 4.2 ?? cm 3.5 - 6.0 LV ID, ES, PLAX ? (L) ? 2.0 ?? cm 2.1 - 4.0 LV PW thickness, ED, PLAX ? 1.5 ?? cm --------- Ventricular septum ?Value ?Reference IVS thickness, ED, PLAX ? 1.5 ?? cm --------- Legend: (L) ??and ??(H) ??issac values outside specified reference range. I have personally reviewed the images and have reviewed and edited the reported findings. Electronically signed by Cristobal Marie MD 08/24/2017 18:14 Procedure Note Cristobal Marie G - 04/14/2019 [facility] [address] [place], [place] [address] [id number] C A R D I A C S T R E S S T E S T R E P O R T NAME: SERGE MARKS PDOB: [birth year] TELEPHONE: [phone] MR#: [id number] [id number] *[facility]* *[facility]* [address] [place] [address] Date of study: 08/24/2017 Stress Echocardiography Dario protocol 2D, limited spectral Doppler, and color Doppler *STUDY CONCLUSIONS* Impressions: LVOT obstruction maximum 2 m/s with Valsalva and with and after exercise. Significant EKG changes with exercise. Normal LV function with exercise; no stress echo imaging performed. This study assessed LVOT gradient with exercise. Summary: 1. Procedure narrative: Treadmill exercise testing was performed using the Dario protocol. The patient exercised for 4 min, to protocol stage 2, to a maximal work rate of 5mets. 2. Stress: Maximal heart rate during stress was 140bpm (98% of maximal predicted heart rate). The maximal predicted heart rate was 143bpm. 3. Stress ECG conclusions: Carlson scoring: exercise time of 4min; maximum ST deviation of 2mm; no angina; resulting score is -6. This score predicts a moderate risk of cardiac events. *PATIENT PRESENTATION* Height: 182.9cm ((72in) ) S/D Pressure: Weight: 132.5kg ((291.4lb) ) BSA: 2.65m S 2 ORDERING Cristobal Marie MD REFERRING Cristobal Marie MD *PROCEDURE DATA* Procedure information: Cristobal Marie MD supervised and was present for the performance of the entire procedure. This study was interpreted by [facility]. Pertinent images and digital data are archived for permanent storage and are available for subsequent review. Study status: [facility] [address] [place], [place] [address] [id number] C A R D I A C S T R E S S T E S T R E P O R T NAME: SERGE MARKS PDOB: [birth year] TELEPHONE: [phone] MR#: [id number] Routine. Stress echocardiography. 2D, limited spectral Doppler, and color Doppler. Consent: The risks, benefits, and alternatives to the procedure were explained to the patient and consent was verbally obtained. Barriers to education: No barriers to education identified. Initial setup. The patient was brought to the laboratory. A baseline ECG was recorded. Surface ECG leads and manual cuff blood pressure measurements were monitored. Treadmill exercise testing was performed using the Dario protocol. The patient exercised for 4 min, to protocol stage 2, to a maximal work rate of 5mets. A Transthoracic stress echocardiogram was performed. Images were captured at baseline and peak exercise. Study completion: The patient tolerated the procedure well. There were no complications. History: PMH: SCREENING TODAY FOR AN EXERCISE INDUCED LVOT GRADIENT AND OR ARRHYTHMIA. NO C/O CHEST PAIN. SOB NOTED WITH WALKING UPHILLS. 05/2017- ECHO- LVEF 55-605, SEVERE LVH, NO WMA. Risk factors: Family history of coronary artery disease. Hypertension. Dyslipidemia. MEDS: CHLORTHALIDONE 25 MG, VALSARTAN/ HCTZ 160- 12.5 MG, OMEPRAZOLE, ASA 81 MG, AMLODIPINE 5 MG, METOPROLOL 50 MG BID, DHEA. *CARDIAC ANATOMY* Baseline ECG: NSR- [address] WAVE ABNORMALITIES. Stress protocol: + +---+ +--------+ !Stage !HR !BP (mmHg) !Symptoms! + +---+ +--------+ !Baseline supine !92 !149/88 (108)!None ! + +---+ +--------+ !Baseline standing !100!158/90 (113)!--------! + +---+ +--------+ !Stage 1; 1.7mph, 10degrees; 3 min!123!177/67 (104)!--------! + +---+ +--------+ !Stage 2; 2.5mph, 12degrees; 3 min!140! !--------! + +---+ +--------+ !Peak stress !140! !--------! + +---+ +--------+ !Recovery; 1 min !124! !--------! + +---+ +--------+ !Recovery; 3 min !106!169/82 (111)!--------! + +---+ +--------+ !Recovery; 6 min !100! !--------! + +---+ +--------+ * Stress results: Maximal heart rate during stress was 140bpm (98% of maximal predicted heart rate). The maximal predicted heart rate was [facility] [address] [place], [place] [address] [id number] C A R D I A C S T R E S S T E S T R E P O R T NAME: SERGE MARKS PDOB: [birth year] TELEPHONE: [phone] MR#: [id number] 143bpm. The rate-pressure product for the peak heart rate and blood pressure was 90629gl Hg/min. Stress ECG: DECREASED FUNCTIONAL CAPACITY POOR EXERCISE YENNIFER- 5 METS ( 4 MINUTES IN DARIO PROTOCOL- STOPPED DUE TO KNEE PROBLEMS) MAX HR- 140 BPM OCC PVC'S, ONE TRIPLET NORMAL BP RESPONSE NO CHEST PAIN ECG ABNORMAL AT REST- ADDITIONAL [address] HORIZONTAL DEPRESSION IN 2,3,AVF,V5,V6. Carlson scoring: exercise time of 4min; maximum ST deviation of 2mm; no angina; resulting score is -6. This score predicts a moderate risk of cardiac events. Measurements Left ventricle Value Reference LV ID, ED, PLAX 4.2 cm 3.5 - 6.0 LV ID, ES, PLAX (L) 2.0 cm 2.1 - 4.0 LV PW thickness, ED, PLAX 1.5 cm --------- Ventricular septum Value Reference IVS thickness, ED, PLAX 1.5 cm --------- Legend: (L) and (H) issac values outside specified reference range. I have personally reviewed the images and have reviewed and edited the reported findings. Electronically signed by Cristobal Marie MD 08/24/2017 18:14 Provider Unknown CARDIAC ECHO ORDERAB LES documented in this encounter Visit Diagnoses Not on filedocumented in this encounter Care Teams Extension Service Agent Relationship Specialty Start Date End Date Devorah Epstein MD [address] [place] [phone] PCP - General 11/04/15 documented as of this encounter
--- OUTSIDE RECORDS SUMMARY | 2024-01-22 03:00 | XMS_ITS | Encounter Summary ---
[place] [address] Care Team Providers Care Rotary Drier Operator Name Role Phone Devorah Epstein MD Primary Care Provider [phone] Reason for Visit * Reason Onset Date Comments Other 12/06/2023 Implanted Cardia c Device Education Encounter Details Date Type Department Care Team (Late st Contact Info) Description 12/06/2023 Notes Only Cardiology at [address] [phone] Carli Foote (Implanted Cardiac Device Education) Social History Tobacco Use Types Packs/Day Years Used Date Smoking Tobacco: Former Smokeless Tobacco: Never Alcohol Use Standard Drinks/Week Comments No 0 (1 standard drink = 0.6 oz pur e alcohol) [facility] Utilities Answer Date Recorded In the past 12 months has [employer], gas, oil, or water [employer] threatened to shut off services in your [...] any time in the past 12 m [facility], were you homeless or living in a [facility] (including now)? No 12/04/2023 DH IPV Inpatient [...] as of this encounter Progress Notes * Carli Foote - 12/06/2023 10:23 AM EDT Cardiac Electrophysiology Device Clinic - Post Implant Teaching Note Keegan Cabrera : 1940 AGE: 83 y.o. Education: Reviewed the following topics with patient. - Implant ID card - Implant manual - Electromagnetic Compatibility (EMC) - Remote monitoring Answered all questions and provided implant folder containing written materials of the above topics. Patient demonstrated understanding and was instructed to call the Cardiac Device Clinic at [phone] with any questions. I am in the process of arranging for his follow up care at [facility] Plan: Post op check: to be sched 91 day check: to be sched Remote monitor: [employer]tronic home monitor provided to patient today. Monitor set up demonstrated. Patient instructed to connect monitor when they arrive home. Carli Foote 12/06/23 documented in this encounter Plan of Treatment Upcoming Encounters Date Type Department Care Team (Late st Contact Info) Description 03/28/2024 10:00 AM EDT Hospital Encounter Non-[place] [phone] Arrived documented as of this encounter Visit Diagnoses Not on filedocumented in this encounter Care Teams Rotary Drier Operator Relationship Specialty Start Date End Date Devorah Epstein MD [address] [place] [address] PCP - General Family Medicine 09/01/17 documented as of this encounter
--- OUTSIDE RECORDS SUMMARY | 2024-01-22 03:00 | XMS_ITS | Encounter Summary ---
[place] [address] Care Team Providers Care Regulatory Assistant Name Role Phone Devorah Epstein MD Primary Care Provider [phone] Reason for Referral * Consultation (Routine) - Authorized Specialty Diagnoses / Procedures Referred By Contac t Referred To Contact Cardiology Diagnoses Atrial fib/flutter, transient AF & CHB EF 63%, s/p micra placement. Darrell Gallardo MD [facility] [address] HEMATOLOGY/[place] [address] [facility] Cardiology [address] [place] [id number] Referral ID Status Reason Start Date Expiration Date Visits Requested Visits Authorized [id number] Authorized Consult, Test & Treat 12/06/2023 12/05/2024 1 1 Reason for Visit * Auth/Cert (Routine) Specialty Diagnoses / Procedures Referred By Contac t Referred To Contact Diagnoses Atrial fib/flutter, transient bradycardia Albert Oreilly MD [facility] [place] [address] [facility] Referral ID Status Reason Start Date Expiration Date Visits Re quested Visits Authorized [id number] 1 1 Encounter Details Date Type Department Care Team (Latest Contact Info) Description 12/02/2023 10:47 PM EDT - 12/06/2023 2:40 PM EDT Hospital Encounter Heart and Vascular Unit Level 4 Wing B at [facility] [place] [address] Albert Oreilly MD [facility] [place] [address] Atrial fib/flutter, transient Discharge Disposition: Home Social History Tobacco Use Types Packs/Day Years Used Date Smoking Tobacco: Former Smokeless Tobacco: Never Alcohol Use Standard Drinks/Week Comments No 0 (1 standard drink = 0.6 oz pur e alcohol) [facility] Utilities Answer Date Recorded In the past 12 months has th e electric, gas, oil, or water company threatened to shut off services in your [...] any time in the past 12 m [facility], were you homeless or living in a custodial (including now)? No 12/04/2023 DH IPV Inpatient [...] Sign Reading Time Taken Comments Blood Pressure 131/73 12/06/2023 11:57 AM EDT Pulse 67 12/06/2023 11:57 AM EDT Temperature 36.4 ??C (97.6 ??F) 12/06/2023 11:57 AM E DT Respiratory Rate 18 12/06/2023 11:57 AM EDT Oxygen Saturation 97% 12/06/2023 11:57 AM EDT Inhaled Oxygen Concentration - - Weight 125 kg (275 lb 9.6 oz) 12/06/2023 6:00 AM EDT Height 182.9 cm (6') 12/02/2023 11:00 PM EDT Body Mass Index 37.38 12/02/2023 11:00 PM EDT documented in this encounter Discharge Summaries * Darrell Gallardo MD - 12/06/2023 12:00 AM EDT Images from the original note were not included. Hospital Discharge Summary Patient Name: Serge Cabrera Patient Age: 83 y.o. Birthdate: 1940 Admit date: 12/02/2023 Discharge date and time: 12/06/2023 Attending Physician: Albert Oreilly MD ID: 83 yo M with PMH CAD s/p CABG (FRIAS-LAD, SVG-OM) in August 2017, HTN, HLD, A- fib, presented initially to [facility] for one month of episodic dyspnea on exertion and epigastric discomfort and now being transferred to [facility] for symptomatic a- fib with slow ventricular response and likely permanent pacemaker. Follow-up Recommendations: #Atrial fibrillation with slow ventricular response #Complete heart block - S/p Micra placement on 12/04 - Discharged on metop succinate 25 mg qd #HTN - Losartan increased to 100 qd #BPH - Tamsulosin increased to 0.8 mg daily Discharge Diagnoses (Hospital Problems) and Secondary Diagnoses (Chronic Problems): Active Hospital Problems Diagnosis Atrial fib/flutter, transient Resolved Hospital Problems No resolved problems to display. Active Non-Hospital Problems Diagnosis Pericardial effusion Atherosclerosis of [place] coronary artery of [place] heart with angina pectoris History of Presentation (per 12/02/2023 Admission H&P): Patient reports a month of episodic dyspnea on exertion and epigastric discomfort. Daughter checkedpulse at home and it was in the 30s, which prompted presentation to [facility]. BP 130/80s, remains in the 30s without fluctuation. Troponin elevated at 82, in August was 71, priorto that was 61, described as stably/chronically mildly elevated. Follows with Dr. Hernandez at [facility] Cardiology. No known tick bites or other recent exposures. Tick panel will be sent. Patient does not report any back or hip pain, no recent weight loss, no night sweats or B symptoms. Labs normal omitting plat 114 (chronically low), ProBNP approx 3K, which is apparently his baseline. TTE in September EF 50%, normal chamber size, no comment on wall thickness, biatrial enlargement. Hospital Course: Serge Cabrera was admitted to the Cardiology Service on 12/02/2023. The following acute and chronic medical issues were identified during this phase of their hospitalization, and managed as summarized below by problem: #Atrial fibrillation with slow ventricular response #Intermittent CHB #NSVT #IRENA on CKD #HTN #HLD #CAD After the patient presented with bradycardia, home bisoprolol was held for BB washout. He was monitored on tele with Hrs 30s-50s. Workup was conducted including screening for Lyme which returned negative. TTE was performed on 12/03 with LVEF decreased from 80% to 63% with new inferior and inferoseptal regional wall motion abnormality as compared to prior TTE in 2018. The patient decided to proceedwith leadless PM implant, which was placed on 12/04. Leadless device was chosen as patient has chronic LE wound to decrease infection risk. This was placed without complication. He did demonstrate NSVT on telemetry intermittently while admitted, and was therefore discharged on low-dose beta kady. Procedures: Micra placement (12/05/23) Pertinent diagnostic studies: TTE TTE 12/04/2023 Interpretation Summary -Wall thickness is moderately increased with a prominent basal septum measuring up to 2.4cm without LVOT obstruction.Left ventricular systolic function is normal. The left ventricular ejection fraction is 63% by Reilly's biplane. There are segmental wall motion abnormalities which are predominantly inferior and inferoseptal. (See attached PDF) -Right ventricle is mildly dilated. Right ventricular wall thickness is mildly increased. Right ventricular systolic function is mildly decreased. -There is moderate calcific aortic stenosis. Mean gradient 10mmHg, DI 0.35, MICHAEL 1.4cm2, SVi 39ml/m2. -The aortic root is dilated. The diameter at the level of the sinuses of Valsalva is 4.4 cm. The ascending aorta is dilated. The maximum diameter of the proximal ascending aorta is 4.7 cm. Compared to the prior study in 2018 the LVEF decreased from 80% to 63% with new inferior and inferoseptal regional wall motion abnormality. There is now moderate aortic stenosis by visual assessment, DI, and estimated MICHAEL. Discharge Conditions/Prognosis: Upon discharge the pt is hemodynamically stable, fully ambulatory without requiring supplemental oxygen, afebrile and pain free with stable oral regimen. Discharge to: home without services Discharge Medications: Your Medications New Medications Dose Details furosemide 40 mg tablet Commonly known as: Lasix Take 1 tablet by mouth daily. 40 mg Quantity: 30 tablet Refills: 3 metoprolol succinate XL 25 mg ER 24 hr tablet Commonly known as: Toprol-XL Take 1 tablet by mouth daily. 25 mg Quantity: 30 tablet Refills: 3 polyethylene glycoL 17 gram oral powder packet Commonly known as: Miralax Take 17 g by mouth daily as needed. 17 g Quantity: 14 each Refills: 0 senna-docusate 8.6-50 mg Tablet Commonly known as: Pericolace Take 2 tablets by mouth daily. 2 tablet Quantity: 60 tablet Refills: 11 tamsulosin 0.4 mg capsule Commonly known as: Flomax Take 2 capsules by mouth daily. 0.8 mg Quantity: 90 tablet Refills: 3 Continued medications with new dosing Dose Details losartan 100 mg tablet Commonly known as: Cozaar Take 1 tablet by mouth daily. What changed: medication strength how much to take 100 mg Quantity: 90 tablet Refills: 3 Continued medications, unchanged Dose Details acetaminophen 500 mg tablet Commonly known as: Tylenol Take 2 tablets by mouth every 6 hours as needed for Pain. 1,000 mg Quantity: 30 tablet Refills: 1 aspirin EC 81 mg EC (DR) tablet Take 81 mg by mouth daily. 81 mg Refills: [address] capsule Commonly known as: PriLOSEC Take 20 mg by mouth daily. 20 mg Refills: 0 rosuvastatin 20 mg tablet Commonly known as: Crestor Take 20 mg by mouth daily. 20 mg Refills: 0 STOPPED Medications bisoprolol 5 mg tablet Commonly known as: Zebeta chlorthalidone 25 mg tablet Commonly known as: Hygroton cholecalciferol (Vitamin D3) 25 mcg (1,000 unit) Capsule glucosamine sulfate 500 mg tablet lactobacillus rhamnosus (GG) 10 billion cell Capsule Commonly known as: CULTURELLE selenium 50 mcg tablet Instructions Given to Patient at Discharge: Patient Instructions Instructions on Discharge to Home Why you were hospitalized - You were admitted to the hospital due to slow heart rate, both due to your atrial fibrillation along with newfound complete heart block. For this, you underwent placement of a pacemaker. You were started on an alternative beta kady called metoprolol. Please take this as prescribed. Call your doctor or seek medical attention if you develop the following - chest pain, shortness of breath, fever, cough, weakness in an arm or leg Activity level - As per EP recommendations Diet - no change in previous diet Driving - as before hospitalization Shower/Bath - permitted Changes in Your Medications: New Medications: - Metoprolol succinate 25 mg daily Medication dose changes: - Losartan increased to 100 mg daily - Tamsulosin increased to 0.8 mg daily Stop these medications: Bisoprolol and chlorthalidone Follow-up: PCP follow up: December [address] Epstein Cardiology follow up: A referral was placed for follow up appointment with the cardiology department at [facility]. If you do not receive a call to schedule this, please call [facility] main line and ask for thegeneral cardiology scheduling desk in order to set this appointment. You will additionally have follow up with the EP (Electrophysiology) team for your pacemaker. Your Inpatient Doctor: MD Albert Kendrick MD Aditya Sharma, MD Your Primary Care Provider: Devorah Epstein MD [phone] For questions regarding this document or issues relating to this hospitalization on the Medical Service, please contact your inpatient physician through the [facility] Laboratory Apparatus Glass Blower . Issues afterhours and on weekends will be handled by the Hospitalist staff on-call. General Instructions DEVICE CLINIC Your device will be checked in one month and then every 3 months (either in clinic or by remote). Prior to discharge, you will be given a home monitor so that your device can send clinical data to the device clinic nurses. If you are unable to set this up at home prior to your wound check, we will review this at the time of your appointment NOTE: The device data we review from your home monitor is comparable to an in- office appointment. Therefore, your insurance company will be billed for review of your data. Depending on your coverage,you may be responsible for a portion of his charge. We recommend that you contact your insurance carrier for more details about your particular coverage. WOUND CARE There is a small incision in the right groin that is covered with a dressing. This site may be sorefor a few days. Please report any bleeding, inflammation or swelling at or near the site immediately. MOVEMENT RESTRICTIONS POST-IMPLANT For the next week after your procedure: Please avoid lifting anything heavier than 10 lbs Please avoid repeated bending or squatting Please do not exercise vigorously If you have any questions or concerns about this product, please call the office at [phone]. Future Appointments and Orders Future Orders Complete By Expires Referral to Cardiology [REF12 Custom] As directed Process Instructions: If no progress note charted, please enter Clinical details in comments. Scheduling Instructions: Questions: My question or request is: 83 yo w/ hx of AF & CHB s/p micra placement Provider Contact Information: MD [address] / [facility] [id number] Discharge References/Attachments: Discharge References/Attachments None documented in this encounter Discharge Instructions * Discharge Instructions* David Calixto MD - 12/06/2023 9:07 AM EDT DEVICE CLINIC Your device will be checked in one month and then every 3 months (either in clinic or by remote). Prior to discharge, you will be given a home monitor so that your device can send clinical data to the device clinic nurses. If you are unable to set this up at home prior to your wound check, we will review this at the time of your appointment NOTE: The device data we review from your home monitor is comparable to an in- office appointment. Therefore, your insurance company will be billed for review of your data. Depending on your coverage,you may be responsible for a portion of his charge. We recommend that you contact your insurance carrier for more details about your particular coverage. WOUND CARE There is a small incision in the right groin that is covered with a dressing. This site may be sorefor a few days. Please report any bleeding, inflammation or swelling at or near the site immediately. MOVEMENT RESTRICTIONS POST-IMPLANT For the next week after your procedure: Please avoid lifting anything heavier than 10 lbs Please avoid repeated bending or squatting Please do not exercise vigorously If you have any questions or concerns about this product, please call the office at [phone]. * Patient Instructions* Darrell Gallardo MD - 12/06/2023 5:34 AM EDT Instructions on Discharge to Home Why you were hospitalized - You were admitted to the hospital due to slow heart rate, both due to your atrial fibrillation along with newfound complete heart block. For this, you underwent placement of a pacemaker. You were started on an alternative beta kady called metoprolol. Please take this as prescribed. Call your doctor or seek medical attention if you develop the following - chest pain, shortness of breath, fever, cough, weakness in an arm or leg Activity level - As per EP recommendations Diet - no change in previous diet Driving - as before hospitalization Shower/Bath - permitted Changes in Your Medications: New Medications: - Metoprolol succinate 25 mg daily Medication dose changes: - Losartan increased to 100 mg daily - Tamsulosin increased to 0.8 mg daily Stop these medications: Bisoprolol and chlorthalidone Follow-up: PCP follow up: December [address] Epstein Cardiology follow up: A referral was placed for follow up appointment with the cardiology department at [facility]. If you do not receive a call to schedule this, please call [facility] main line and ask for [facility] cardiology scheduling desk in order to set this appointment. You will additionally have follow up with the EP (Electrophysiology) team for your pacemaker. Your Inpatient Doctor: MD Albert Kendrick MD Aditya Sharma, MD Your Primary Care Provider: Devorah Epstein MD [phone] For questions regarding this document or issues relating to this hospitalization on the Medical Service, please contact your inpatient physician through the [facility] Laboratory Apparatus Glass Blower . Issues afterhours and on weekends will be handled by the Hospitalist staff on-call. documented in this encounter Medications at Time of Discharge Medication Sig Dispensed Refills Start Date End Date tamsulosin (Flomax) 0.4 mg capsule Take 2 capsules by mouth daily. 90 tablet 3 12/06/2023 senna-docusate (Pericolace) 8.6-50 mg Tablet Take 2 tablets by mouth daily. 60 tablet 11 12/06/2023 polyethylene glycoL (Miralax) 17 gram oral powder packet Take 17 g by mouth daily as needed. 14 each 12/06/2023 losartan (Cozaar) 100 mg tablet Take 1 tablet by mouth daily. 90 tablet 3 12/06/2023 furosemide (Lasix) 40 mg tablet Take 1 tablet by mouth daily. 30 tablet 3 12/06/2023 acetaminophen (Tylenol) 500 mg tablet Take 2 tablets by mouth every 6 hours as needed for Pain. 30 tablet 1 12/06/2023 metoprolol succinate XL (Toprol-XL) 25 mg ER 24 hr tablet Take 1 tablet by mouth daily. 30 tablet 3 12/06/2023 rosuvastatin (CRESTOR) 20 mg Tablet Take 20 mg by mouth daily. omeprazole (PRILOSEC) 20 mg Capsule, Delayed Release(E.C.) Take 20 mg by mouth daily. aspirin 81 mg Tablet, Delayed Release (E.C.) Take 81 mg by mouth daily. documented as of this encounter Progress Notes * Keron Humphrey RN - 12/06/2023 2:05 PM EDT Discharge orders written, patient understands instructions and follow up visits, patient discharge to home with daughter. * David Calixto MD - 12/06/2023 8:49 AM EDT Images from the original note were not included. Leadless Pacemaker Cardiac Device Implant Progress Note Serge Cabrera [id number] 12/06/2023 Assessment/Plan: Doing well post op day 1 s/p Micra VR. Device function No unexpected events on log. Acceptable sensing, impedance and threshold. Chest x-ray shows expected device position. Groin site Stitch in right groin removed, dressed dermotomy site with clean gauze/tegaderm Continue routine wound care for groin incision with soap/water and clean dressings daily until siteis fully closed. Home monitor Micra home monitor delivered to room. Encouraged patient to reach out to provided phone number on yellow folder for any device related issues. History: Serge Cabrera is a 83 y.o. man with ICM s/p remote CABG with preserved LV function and longstanding RBBB and permanent AF who presents with symptomatic bradycardia secondary to slowly conducted AF and periods of complete heart block with ventricular escape (LBBB). Chest x-ray: Device Interrogation: Data Device: Fusebill Micra (VR2) #[id number] - Implanted 12/05/2023 Diagnostics Pacing Mode: VVIR Presenting EGMs: OUTREACH REPRESENTATIVE Underlying Rhythm: Atrial fibrillation Ventricular Pacin.2% Battery and Leads Voltage: 3.06V Longevity: >10 years Impedance (ohms) Sensing (mV) Threshold 730 15 0.25V @ 0.24 ms Comments: - Device is functioning appropriately - Programming changes None - Follow up: Per device clinic David Calixto MD 12/06/2023 Pager: [phone] Associated attestation - Nikki Serrano MD - 12/06/2023 9:44 AM EDT Staff addendum: I agree with the findings, physical examination, and assessment of Dr. Calixto as detailed below. Leadless pacemaker working appropriately. Groin site benign. EP will sign off. Nikki Serrano MD 12/06/2023 9:44 AM * Rina Douglas RN - 12/05/2023 8:02 PM EDT 1753) Patient into PACU from OR. Attached to monitors, alarms on and appropriate for patient. Rightgroin stick site dressing with suture visible and groin soft. Artem MICHELE 1850) Patient resting comfortably. Dinner choices made for later before the cafeteria closes. Shahab 1950) Patient meets PACU dc criteria. Uneventful PACU recovery. Handoff accepted to [facility] for 471-A and patient readied for transportation. Will be transported to unit by [employer]. Artem MICHELE * Nikki Serrano MD - 12/05/2023 11:24 AM EDT Brief EP Progress Note ID: Serge Cabrera is a 83 y.o. man with ICM s/p remote CABG with preserved LV function and longstanding RBBB and permanent AF who presents with symptomatic bradycardia secondary to slowly conducted AF and periods of complete heart block with ventricular escape (LBBB). Please see initial consult note for details. Interval History: Since yesterday, Mr. Cabrera's clinical status has been largely unchanged. Over the past 24 hours which follows a 48hr period of bisoprolol washout, his HR has stayed mostly in the 50s during waking hours. During sleep, it continues to dip into the 30s briefly. He reports that he has had no recurrence of the abdominal discomfort/nausea and exertional dyspnea that he had on presentation that was attributed to bradycardia. We discussed the weakening indication for permanent pacing in this setting. However, he continues to have objective bradycardia with substantial conduction disease (RBBB). It is difficult to assess how his HR will respond in his life outside the hospital, but it is likely that he would continue to have episodes of bradycardia and will likely have difficulty augmenting his HR with activity. Furthermore, if ongoing BB therapy is preferred, he will definitely need pacing to support that. Based on this discussion over multiple occasions, the patient and his daughter wish to proceed withpacemaker implantation. Leadless pacing offers some benefits over traditional pacing in light of his leg wound in setting of permanent AF and expected pacing burden that may be low to modest. Plan: - proceed with leadless PM implant today; consent signed and in hard chart; he will need anesthesiasupport to tolerate the procedure. - NPO until PPM Nikki Serrano MD 12/05/2023 11:31 AM * Albert Oreilly MD - 12/05/2023 8:27 AM EDT Inpatient Cardiology Progress Note Patient Name: Serge Cabrera Date of Admission: 12/02/2023 ( Hospital Day 3 days ) Service: S2 ID: 83 yo M with PMH CAD s/p CABG (FRIAS-LAD, SVG-OM) in August 2017, HTN, HLD, A- fib, presented initially to [facility] for one month of episodic dyspnea on exertion and epigastric discomfort and now being transferred to [facility] for symptomatic a- fib with slow ventricular response and likely permanent pacemaker. Active Problems: Active Hospital Problems Diagnosis Atrial fib/flutter, transient Resolved Hospital Problems No resolved problems to display. 24 hr events: - No acute events overnight - AFIB/flutter on tele HR 40s-50s ROS: Denies CP, SOB, palpitations, PND, Orthopnea, dizziness/LH, LE swelling or pain, n/v, abd pain. Physical Exam: Last value Range last 24 hrs Temperature Temp: 36.7 ??C (98.1 ??F) Temp: [36.4 ??C (97.6 ??F)-36.7 ??C (98.1 ??F)] Heart Rate Heart Rate: 55 Heart Rate: [45-58] Blood Pressure BP: (!) 141/99 BP: (125-163)/(63-99) Respiratory Rate Resp: 17 Resp: [16-18] SpO2 SpO2: 95 % SpO2: [93 %-96 %] Weight: Patient Vitals for the past 168 hrs: Weight 12/05/23 0600 125.8 kg (277 lb 6.4 oz) 12/04/23 0513 128.2 kg (282 lb 10.1 oz) 12/03/23 06 127.8 kg (281 lb 12.8 oz) 12/02/23 2300 127.5 kg (281 lb 1.4 oz) Admit Weight: 127.5 kg Yesterday's net I/O's: Intake/Output Summary (Last 24 hours) at 12/05/2023 1131 Last data filed at 12/05/2023 0407 Gross per 24 hour Intake 600 ml Output 0 ml Net 600 ml Net I/O's since admission: Patient Vitals for the past 168 hrs: Weight 12/05/23 0600 125.8 kg (277 lb 6.4 oz) 12/04/23 0513 128.2 kg (282 lb 10.1 oz) 12/03/23 0600 127.8 kg (281 lb 12.8 oz) 12/02/23 2300 127.5 kg (281 lb 1.4 oz) General: Pleasant, alert, appropriate, in NAD. Appears stated age. HEENT: EOMI, PERRL, anicteric sclera. Oropharynx clear w/o lesions. Moist mucous membranes Neck: Supple with normal ROM. No obvious LAD. JVD ~ Cardiac: Bradycardia, irregularly irregular Respiratory: Nonlabored. Clear to auscultation bilaterally; No rhonci/ rales. Slight wheeze R mid lobe Abd: + BS; soft, non-tender, non-distended, no obvious masses. Ext: 1+ pitting edema of Les bilaterally, DPP 2+ bilaterally. Neuro: II-XII grossly intact. Alert and orientated, no-focal deficits, sensation intact to crude touch Skin: No rashs, no lesions, no petechiae, chronic stasis skin changes Labs Recent Labs 12/05/23 0332 12/03/23 0100 WBC 4.2 5.1 HGB 13.2* 13.1* HCT 41.7 41.6 PLATELET 106* 123* Recent Labs 12/05/23 0332 12/04/23 0942 12/03/23 0100 NA 141 140 141 K 4.1 4.3 4.4 CL 108* 106 109* CO2 22 19* 20* BUN 33* 36* 35* CREATININE 1.54* 1.59* 1.86* Recent Labs 12/03/23 0100 AST 14 ALT 15 ALKPHOS 70 BILITOT 0.8 BILIDIR 0.3 Recent Labs 12/05/23 0332 12/04/23 0942 12/03/23 0100 CALCIUM 9.7 10.4 9.8 MAGNESIUM 0.90 0.96 0.92 PHOS 3.9 3.5 3.1 Recent Labs 12/03/23 0100 INR 1.3 PT 14.7* PTT 31 No results for input(s): CK, TROPONINT in the last 168 hours. Telemetry: A fib Imaging/Studies: No results found for this visit on 12/02/23. TTE: TTE 12/2017 1. The left ventricular chamber size is [...] See remainder of report for additional findings. TTE 12/04/2023 Interpretation Summary -Wall thickness is moderately increased with a prominent basal septum measuring up to 2.4cm without LVOT obstruction.Left ventricular systolic function is normal. The left ventricular ejection fraction is 63% by Reilly's biplane. There are segmental wall motion abnormalities which are predominantly inferior and inferoseptal. (See attached PDF) -Right ventricle is mildly dilated. Right ventricular wall thickness is mildly increased. Right ventricular systolic function is mildly decreased. -There is moderate calcific aortic stenosis. Mean gradient 10mmHg, DI 0.35, MICHAEL 1.4cm2, SVi 39ml/m2. -The aortic root is dilated. The diameter at the level of the sinuses of Valsalva is 4.4 cm. The ascending aorta is dilated. The maximum diameter of the proximal ascending aorta is 4.7 cm. Compared to the prior study in 2018 the LVEF decreased from 80% to 63% with new inferior and inferoseptal regional wall motion abnormality. There is now moderate aortic stenosis by visual assessment, DI, and estimated MICHAEL. Cardiac Catheterization: Na Micro: Microbiology Results (last 7 days) No results found for the last 168 hours. Assessment: 83 yo M with PMH CAD s/p CABG (FRIAS-LAD, SVG-OM) in August 2017, HTN, HLD, A-fib, presented initially to [facility] for one month of episodic dyspnea on exertion and epigastric discomfort and now being transferred to [facility] [facility] for symptomatic a-fib with slow ventricular response and likely permanent pacemaker. Plan: 12/04- Patient remains HDS despite some bradycardia and new LBBB. He had a discussion with EP today. His HR has been largely unchanged after his bisoprolol washout, remains bradycardic. Patient and his daughter wish to proceed with pacemaker implantation. Leadless PM implant planned today. TTE was performed yesterday showing new inferior and inferoseptal regional wall motion abnormality and LVEF reducedfrom prior study in 2018. LVEF still normal range at 65%. Potential cath in future to r/o ischemic etiology. #Atrial fibrillation with slow ventricular response #new LBBB -EP following about PPM -continue telemetry -Tick panel- lyme negative -SPEP normal -UPEP elevated at 53 -FLC normal -TTE with LVEF 65%, new wall motion abnormality -EP to place leadless PM implant today #HTN #HLD #CAD -C/w home losartan 100 mg -C/w home Rosuvastatin -C/w home Lasix 40 mg PO -C/w home tamsulosin -C/w home ASA -Holding home Bisoprolol Other: - DVT prophylaxis: LMWH - GI prophylaxis: Protonix - Home medications: ASA 81 mg, lasix 40 mg, 1200 mg mucinex BID, 0.4 mg Tamsulosin, allopurinol 200mg PO daily - Diet: npo for procedure - Code Status: Full code - Dispo: Pending clinical course Cyndi Archer, Internal Medicine PGY-1 Pager [phone], M1-S2 Service Cardiology Attending Note I interviewed and examined the patient during comprehensive bedside rounds. I concur with the summary of interval events, active hospital-focused problem list and plan of care as described in the note below. I personally reviewed the medications, laboratory results, treatment decisions and updated the patient. Albert Oreilly MD, FACP, FACC Section of Cardiovascular Medicine [facility] Animation Directorfront end driver [facility] [employer] [facility] This patient meets or has met medical criteria to require an inpatient level of care, i.e. a minimum of two midnights in the hospital with multiple complex problems. * Nikki Serrano MD - 12/04/2023 2:56 PM EDT Brief EP Progress Note ID: Serge Cabrera is a 83 y.o. man with permanent AF and history of CAD s/p CABG in 2018 complicated by late pericardial effusion requiring drainage who is admitted with symptomatic bradycardia. See complete consult note dated yesterday 12/03/23. Interval history: Today duncan 48 hours since last beta kady dose. His HR has come up nicely and complete heart block has resolved. He is now in conducted AF with RBBB with rate 50s. On review of outside records, his heart rhythm has been noted to be AF with v- rate in the 50s-60s for years. Thus, his current heart rate/rhythm are consistent with prior. Today, he reports that the feeling of nausea that he had on arrival has resolved. He does not feel SOB or fatigued when walking to the bathroom. He reports constipation since hospitalization; this is not a typical problem for him. Telemetry: AF with HR in the 50s; this has improved substantially since last evening. Echo: LVEF 63% with regional WMA (inferior/inferoseptal), moderate , dilated ascending aorta (4.7cm). Lab Results Component Value Date NA 140 12/04/2023 K 4.3 12/04/2023 CL 106 12/04/2023 CO2 19 (L) 12/04/2023 BUN 36 (H) 12/04/2023 CREATININE 1.59 (H) 12/04/2023 GLUCOSE 131 12/04/2023 GLUCFASTING 134 (H) 12/03/2023 CALCIUM 10.4 12/04/2023 ESTGFR 43 (L) 12/04/2023 Note - improving Cr Assessment: Serge Cabrera is a 83 y.o. man admitted with symptomatic bradycardia. On presentation, he was noted to have AF (permanent) with complete heart block and ventricular escape with LBBB morphology. Since stopping bisoprolol, his HR has improved and is now near/approaching his baseline. His case has been delayed, so we have the opportunity to monitor another 24 hours or so off beta kady. Should the patient need pacemaker, he and his daughter are still considering their options (micra vs TV PPM) and are leaning towards micra Plan: - NPO p MN for possible pacemaker tomorrow EP will continue to follow. * Albert Oreilly MD - 12/04/2023 8:57 AM EDT Inpatient Cardiology Progress Note Patient Name: Serge Cabrera Date of Admission: 12/02/2023 ( Hospital Day 2 days ) Service: S2 ID: Serge Cabrera is a 83 y.o. male with Active Problems: Active Hospital Problems Diagnosis Atrial fib/flutter, transient Resolved Hospital Problems No resolved problems to display. 24 hr events: - No acute events overnight -AFIB/flutter on tele with occasional pauses averaging around 2 seconds -Heart rates normally in 30s-40s ROS: Denies CP, SOB, palpitations, PND, Orthopnea, dizziness/LH, LE swelling or pain, n/v, abd pain. Physical Exam: Last value Range last 24 hrs Temperature Temp: 36.6 ??C (97.9 ??F) Temp: [36.6 ??C (97.8 ??F)-36.8 ??C (98.3 ??F)] Heart Rate Heart Rate: 58 Heart Rate: [30-58] Blood Pressure BP: 133/71 BP: (112-180)/(62-94) Respiratory Rate Resp: 16 Resp: [16] SpO2 SpO2: 95 % SpO2: [93 %-99 %] Weight: Patient Vitals for the past 168 hrs: Weight 12/04/23 0513 128.2 kg (282 lb 10.1 oz) 12/03/23 0600 127.8 kg (281 lb 12.8 oz) 12/02/23 2300 127.5 kg (281 lb 1.4 oz) Admit Weight: 127.5 kg Yesterday's net I/O's: Intake/Output Summary (Last 24 hours) at 12/04/2023 1409 Last data filed at 12/04/2023 0800 Gross per 24 hour Intake 680 ml Output 0 ml Net 680 ml Net I/O's since admission: Patient Vitals for the past 168 hrs: Weight 12/04/23 0513 128.2 kg (282 lb 10.1 oz) 12/03/23 0600 127.8 kg (281 lb 12.8 oz) 12/02/23 2300 127.5 kg (281 lb 1.4 oz) General: Pleasant, alert, appropriate, in NAD. Appears stated age. HEENT: EOMI, PERRL, anicteric sclera. Oropharynx clear w/o lesions. Moist mucous membranes Neck: Supple with normal ROM. No obvious LAD. JVD ~ Cardiac: Bradycardia, irregularly irregular Respiratory: Nonlabored. Clear to auscultation bilaterally; No wheezes/ rhonci/ rales. Abd: + BS; soft, non-tender, non-distended, no obvious masses. Ext: WWP without le edema, cyanosis or clubbing. DPP 2+ bilaterally. Neuro: II-XII grossly intact. Alert and orientated, no-focal deficits, sensation intact to crude touch Skin: No rashs, no lesions, no petechiae Labs Recent Labs 12/03/23 010 WBC 5.1 HGB 13.1* HCT 41.6 PLATELET 123* Recent Labs 12/04/2342 12/03/23 010 NA 140 141 K 4.3 4.4 CL 106 109* CO2 19* 20* BUN 36* 35* CREATININE 1.59* 1.86* Recent Labs 12/03/23 010 AST 14 ALT 15 ALKPHOS 70 BILITOT 0.8 BILIDIR 0.3 Recent Labs 12/04/2342 12/03/23 010 CALCIUM 10.4 9.8 MAGNESIUM 0.96 0.92 PHOS 3.5 3.1 Recent Labs 12/03/23 010 INR 1.3 PT 14.7* PTT 31 No results for input(s): CK, TROPONINT in the last 168 hours. Telemetry: a fib Imaging/Studies: No results found for this visit on 12/02/23. TTE: TTE 12/2017 1. The left ventricular chamber size is [...] See remainder of report for additional findings. TTE 12/04/2023 Interpretation Summary -Wall thickness is moderately increased with a prominent basal septum measuring up to 2.4cm without LVOT obstruction.Left ventricular systolic function is normal. The left ventricular ejection fraction is 63% by Reilly's biplane. There are segmental wall motion abnormalities which are predominantly inferior and inferoseptal. (See attached PDF) -Right ventricle is mildly dilated. Right ventricular wall thickness is mildly increased. Right ventricular systolic function is mildly decreased. -There is moderate calcific aortic stenosis. Mean gradient 10mmHg, DI 0.35, MICHAEL 1.4cm2, SVi 39ml/m2. -The aortic root is dilated. The diameter at the level of the sinuses of Valsalva is 4.4 cm. The ascending aorta is dilated. The maximum diameter of the proximal ascending aorta is 4.7 cm. Compared to the prior study in 2018 the LVEF decreased from 80% to 63% with new inferior and inferoseptal regional wall motion abnormality. There is now moderate aortic stenosis by visual assessment, DI, and estimated MICHAEL. Cardiac Catheterization: Na Micro: Microbiology Results (last 7 days) No results found for the last 168 hours. Assessment: 83 yo M with PMH CAD s/p CABG (FRIAS-LAD, SVG-OM) in August 2017, HTN, HLD, A-fib, presented initially to [facility] for one month of episodic dyspnea on exertion and epigastric discomfort and now being transferred to [facility] [place] for symptomatic a-fib with slow ventricular response and likely permanent pacemaker. Plan: 12/03- Patient remains HDS despite some bradycardia and new LBBB. Patient has indication for permanent pacemaker. EP following. TTE was performed today showing new inferior and inferoseptal regional wall motion abnormality and LVEF reduced from prior study in 2018. LVEF still normal range at 65%. Will discuss with EP. #Atrial fibrillation with slow ventricular response #new LBBB -EP following about PPM -continue telemetry -Tick panel- lyme negative -SPEP normal -UPEP elevated at 53 -FLC normal -TTE today #HTN #HLD #CAD -C/w home losartan 100 mg -C/w home Rosuvastatin -C/w home Lasix 40 mg PO -C/w home tamsulosin -C/w home ASA -Holding home Bisoprolol Other: - DVT prophylaxis: LMWH - GI prophylaxis: Protonix - Home medications: ASA 81 mg, lasix 40 mg, 1200 mg mucinex BID, 0.4 mg Tamsulosin, allopurinol 200mg PO daily - Diet: healthy cardiac - Code Status: Full code - Dispo: Pending clinical course Cyndi Archer, Internal Medicine PGY-1 Pager [phone], M1-S2 Service Cardiology Attending Note I interviewed and examined the patient during comprehensive bedside rounds. I concur with the summary of interval events, active hospital-focused problem list and plan of care as described in the note below. I personally reviewed the medications, laboratory results, treatment decisions and updated the patient. Albert Oreilly MD, FACP, FACC Section of Cardiovascular Medicine [facility] Animation Directorfront end driver [facility] This patient meets or has met medical criteria to require an inpatient level of care, i.e. a minimum of two midnights in the hospital with multiple complex problems. documented in this encounter H&P Notes * Albert Oreilly MD - 12/03/2023 12:57 AM EDT Cardiovascular Medicine Admission History and Physical Patient Name: Serge Lentzjames Service: S2 Responsible Attending: Albert Oreilly MD PCP: Devorah Epstein MD PCP phone #: [phone] ID/Chief Complaint: 83 yo M with PMH CAD s/p CABG (FRIAS-LAD, SVG-OM) in August 2017, HTN, HLD, A-fib, presented initially to [facility] for one month of episodic dyspnea on exertion and epigastric discomfort and now being transferred to [facility] [place] for symptomatic a-fib with slow ventricular response and likely permanent pacemaker. History of Present Illness: Patient reports a month of episodic dyspnea on exertion and epigastric discomfort. Daughter checkedpulse at home and it was in the 30s, which prompted presentation to [facility]. BP 130/80s, remains in the 30s without fluctuation. Troponin elevated at 82, in August was 71, priorto that was 61, described as stably/chronically mildly elevated. Follows with Dr. Hernandez at [facility] Cardiology. No known tick bites or other recent exposures. Tick panel will be sent. Patient does not report any back or hip pain, no recent weight loss, no night sweats or B symptoms. Labs normal omitting plat 114 (chronically low), ProBNP approx 3K, which is apparently his baseline. TTE in September EF 50%, normal chamber size, no comment on wall thickness, biatrial enlargement. Problem List/Past Medical History Patient Active Problem List Diagnosis Atrial fib/flutter, transient Pericardial effusion Atherosclerosis of [place] coronary artery of [place] heart with angina pectoris Meds: No current facility-administered medications on file prior to encounter. Current Outpatient Medications on File Prior to Encounter Medication Sig Dispense Refill losartan (COZAAR) 25 mg Tablet Take 25 mg by mouth daily. rosuvastatin (CRESTOR) 20 mg Tablet Take 20 mg by mouth daily. omeprazole (PRILOSEC) 20 mg Capsule, Delayed Release(E.C.) Take 20 mg by mouth daily. aspirin 81 mg Tablet, Delayed Release (E.C.) Take 81 mg by mouth daily. Allergies: No Known Allergies Vitals: Last value Range last 24 hrs Temperature Temp: 36.9 ??C (98.4 ??F) Temp: [36.9 ??C (98.4 ??F)] Heart Rate Heart Rate: (!) 32 Heart Rate: [32-36] Blood Pressure BP: 119/62 BP: (119-142)/(62-108) Respiratory Rate Resp: 19 Resp: [19] SpO2 SpO2: 93 % SpO2: [93 %] Examination: General: Pleasant, alert, appropriate, in NAD. Appears stated age. HEENT: EOMI, PERRL, anicteric sclera. Oropharynx clear w/o lesions. Moist mucous membranes Neck: Supple with normal ROM. No obvious LAD. JVD ~ Cardiac: Bradycardia, irregularly irregular Respiratory: Nonlabored. Clear to auscultation bilaterally; No wheezes/ rhonci/ rales. Abd: + BS; soft, non-tender, non-distended, no obvious masses. Ext: WWP without le edema, cyanosis or clubbing. DPP 2+ bilaterally. Neuro: II-XII grossly intact. Alert and orientated, no-focal deficits, sensation intact to crude touch Skin: No rashs, no lesions, no petechiae Laboratory: CBC: No results for input(s): WBC, HGB, PLATELET in the last 7068 hours. Chemistry: No results for input(s): NA, K, CL, CO2, BUN, CREATININE, GLUCOSE in the last 7068 hours. No results for input(s): CALCIUM, MAGNESIUM, PHOS in the last 7068 hours. LFT's: No results for input(s): BILITOT, BILIDIR, ALBUMIN, ALKPHOS, ALT, AST in the last 7068 hours. Coags: No results for input(s): PT, INR, PTT, FIBRINOGEN, DDIMER in the last 168 hours. Invalid input(s): THROMBIN TIME Cardiac enzymes: No results for input(s): TROPONINT, CK in the last 7068 hours. Endocrine: No results for input(s): TSH, CORTISOL in the last 7068 hours. Invalid input(s): [id number] Heme: No results for input(s): LDH, HAPTOGLOBIN, URICACID in the last 168 hours. Past cardiac studies: TTE 12/2017 1. The left ventricular chamber size is [...] See remainder of report for additional findings. Microbiology: None Diagnostic Studies: ASSESSMENT and PLAN: 83 yo M with PMH CAD s/p CABG (FRIAS-LAD, SVG-OM) in August 2017, HTN, HLD, A-fib, presented initially to [facility] for one month of episodic dyspnea on exertion and epigastric discomfort and now being transferred to [facility] [place] for symptomatic a-fib with slow ventricular response and likely permanent pacemaker. Plan to hold all AV guido blocking agents, will order tick panel and plan for TTE on arrival. Some concern for infiltrative cardiomyopathy based on prior view of biatrial enlargement. Will also obtain SPEP/UPEP/FLE on arrival. Admit to Cardiology, S2 Team Pager #[phone] #Atrial fibrillation with slow ventricular response -Consult EP in the am for PPM -EKG, Tele -BMP, CBC -Tick panel -SPEP, UPEP, FLC #HTN #HLD #CAD -C/w home losartan 100 mg -C/w home Rosuvastatin -C/w home Lasix 40 mg PO -C/w home tamsulosin -C/w home ASA -Holding home Bisorolol Other: - DVT prophylaxis: LMWH - GI prophylaxis: Protonix - Home medications: ASA 81 mg, lasix 40 mg, 1200 mg mucinex BID, 0.4 mg Tamsulosin, allopurinol 200mg PO daily - Diet: healthy cardiac - Code Status: Full code - Dispo: Pending clinical course Elías Duff MD PGY-2 Internal Medicine Cardiology Service Cardiology Attending Note I interviewed and examined the patient during comprehensive bedside rounds. I concur with the summary of interval events, active hospital-focused problem list and plan of care as described in the note below. I personally reviewed the medications, laboratory results, treatment decisions and updated the patient. # AF, slow ventricular response # LBBB, new - Hold bisoprolol - Will check TTE - EP consult; anticipate need for PPM # ASCVD, s/p CABG (2018) # HTN # CKD Albert Oreilly MD, FACP, FACC Section of Cardiovascular Medicine [facility] Animation Directorfront end driver [facility] This patient meets or has met medical criteria to require an inpatient level of care, i.e. a minimum of two midnights in the hospital with multiple complex problems. documented in this encounter Miscellaneous Notes * Care Management Discharge - Raiza Og RN - 12/06/2023 2:08 PM EDT CARE MANAGEMENT FINAL DISCHARGE NOTE Chart reviewed, care reviewed with primary team and at interdisciplinary rounds. Patient is medically ready for discharge to home with no home health services with daughter. Needs for Transition of Care: Plan for discharge is: Home w/o Services Transportation: family or friend will provide Functional status prior to admission: Independent Home Environment: Others in the home: child(ashley), adult (Pt lives w/ daughter & MELODIE (his granddaughter, her , and their kids also live on the property). Pt reports to have a lot of good support.). Current Living Arrangements: home/apartment/condo. Accessibility Concerns:1-level home. No TAY. No concerns.. Current Functional Ability: Independent DME used at home: respiratory supplies (CPAP ([facility])) DME Needed at Discharge: none Patient is insured through: Primary Insurance: MEDICARE Payor: MEDICARE / Plan: MEDICARE PART A & B / Product Type: *No Product type* / Secondary Insurance: [employer] Prescription Coverage: Yes This plan was formulated with input from patient, (please identify family/friend involved if applicable) and team. All are in agreement with plan. Raiza Og RN * Consult Note - Meghan Cannon RN - 12/06/2023 10:35 AM EDT Images from the original note were not included. Certified Wound Care Nurse Note Situation: Follow up to see Serge Cabrear for compression wrap change to the RLE. Background: [facility] notes reviewed for history, admitting diagnosis and active problem list. Patient seen in [facility] wound care clinic. Receives compression wraps changes on Monday and Saturdays. Wound Assessment and Care Provided: Patient seen in room 471. Permission to see patient to change compression wraps to the RLE. Supplies at bedside with daughter. Wraps taken down including dressing to the right anterior ulcer. Cleansed with normal saline. RLE cleansed with CHG wipe. Algidex Ag hydrgel gauze applied to ulcer. Coveredwith mepilex foam. Co Flex TLS Zinc Lite wraps applied. Patient request to apply light compression around ankle. Patient states they feel comfortable. RLE anterior ulcer: Bryan Score: 22 Last Pressure Ulcer Prevention assessment: Shift Pressure Injury Prevention Occiput: No Injury Thoracic Spine: No Injury Sacral: No Injury Ischial - left: No Injury Ischial - right: No Injury Heel - left: No Injury Heel - right: No Injury Elbow - left: No Injury Elbow - right: No Injury Device Sites: ECG Leads, IV sites Other Sites: other Existing Wounds: Wound 12/02/23 2300 Right;anterior;distal;lower leg (Active) Wound WDL ex 12/06/23 1034 Dressing Appearance moist drainage;intact 12/06/23 1034 Base moist;pink;clean;yellow 12/06/23 1034 Drainage Characteristics/Odor serosanguineous 12/06/23 1034 Drainage Amount small 12/06/23 1034 Wound Cleaning cleansed with;sterile normal saline 12/06/23 1034 Dressing dressing removed;dressing applied 12/06/23 1034 Wound Image 12/06/23 1034 Nutritional Status Wt Readings from Last 1 Encounters: 12/06/23 125 kg (275 lb 9.6 oz) Body mass index is 37.38 kg/m??. Labs Lab Results Component Value Date ALBUMIN 4.0 12/03/2023 HA1C 6.5 (H) 12/03/2023 WBC 7.6 12/06/2023 WBC 4.2 12/05/2023 WBC 5.1 12/03/2023 HGB 14.0 12/06/2023 HGB 13.2 (L) 12/05/2023 HGB 13.1 (L) 12/03/2023 HCT 44.2 12/06/2023 HCT 41.7 12/05/2023 HCT 41.6 12/03/2023 PLATELET 140 (L) 12/06/2023 PLATELET 106 (L) 12/05/2023 PLATELET 123 (L) 12/03/2023 INR 1.3 12/03/2023 INR 1.5 (H) 09/11/2017 PT 14.7 (H) 12/03/2023 PT 17.5 (H) 09/11/2017 Nutritional Intake Nutrition Diet/Nutrition Received: low saturated fat/low cholesterol Diet/Feeding Assistance: none Diet/Feeding Tolerance: good Intake (%): 100% Nutrition Risk Screen: no indicators present Current bed: Patient seen in chair Assessment: Patient with chronic venous ulcer since August 2023. Patient seen in outpatient clinic at [facility] and receives 2 layer wraps changes on Monday and Saturdays. Patient states wound is healing well. Periwound skin intact. Tolerated wraps well. Wound Treatment Recommendations: RLE Anterior Ulcer: Cleanse wound with NS Cleanse leg with CHG wipes Apply Algidex Ag Hydrogel Gauze to the wound bed. Cover with Mepilex Foam. CoFlex TLS Lite compression wraps to the bilateral lower legs will be applied by Wound Care Services on Wednesdays and Saturdays (daughter can do): Apply the compression system with the foot in angled position (foot at an angle of 90??). Start by wrapping the white layer around the foot starting at the base of the toes. 2. Continue wrapping it around the foot, overlapping the bandage on the back of the foot so that half of its width covers the ankle. 3. The next turn of the bandage goes over the heel. If necessary, prominent points on the leg can be additionally padded with off- cuts of the bandage. 4. Continue bandaging as far as the knee and ensure overlapping. The padded bandage should fit the shape of the leg with minimal stretching. 5. Remove excess material and press the end of the bandage on lightly. 6. An indicator on the cruz bandage helps to ensure correct tension by changing from an oval to a chemehuevi when it is stretched. 7. Start by wrapping it around the foot at the base of the toes. 8. Pass it around the ankle in two or three figures-of eight, ensuring that the heel is completely covered. Ensure that the foot is kept at a right angle. 9. Continue wrapping the bandage around the lower leg, overlapping it at least 50 %, keeping the bandage under even tension. The indicator on the bandage helps to achieve the desired pressure profile. 10. Cut of excess bandage material and press the compression bandage on lightly. This way, you willensure that the bandage adheres well to itself and to the padded bandage. If patient reports BLE pain, encourage BLE elevation and PRN pain meds. If pain is unrelieved or patient reports numbness or tingling, remove wraps. Cleanse wounds with dermal wound cleanser and apply Mepilex Border dressings. Re consult Wound Care Team via [facility]H. Patient plan to be discharged today. Patient will plan to follow up in the outpatient clinic at [facility] and daughter change the wraps at home on Monday. Please contact Meghan Cannon RN on secure chat or the wound care team at [phone] or pager [phone] with skin and wound care concerns or questions. * Plan of Care - Elma Adams RN - 12/05/2023 9:28 PM EDT OUTCOME EVALUATION NOTE: OUTCOME SUMMARY: Assumed care of Serge @1900. Pt A&Ox4, VSS on RA, paced on tele. CPAP in place while sleeping. Denies CP/SOB for this RN. Pt had pacemaker placed today, groin site CDI. Bed rest complete w/o issue. Medicated per AUG. NPO for CXR. Shift otherwise uneventful. PLAN MOVING FORWARD: Continue to monitor D/c planning as appropriate INDIVIDUALIZED FALL PREVENTION INTERVENTIONS: Patient-specific fall risk factors per assessment: [current deficits]: unfamiliar environment, telewiring, IV lines Assistance [level of assistance required for transfers and ambulation]: Independent Supervision [direct monitoring required during toileting and ADLs]: N/A Surveillance [continuous indirect monitoring]: Telemetry Patient-specific fall prevention interventions for sensory deficits provided, if applicable: Bed near unit station, nonskid socks applied, personal belongings within reach, call echeverria in reach hourly safety rounds CPG GOAL OUTCOME EVALUATION: Problem: Adult Inpatient Plan of Care Goal: Plan of Care Review Outcome: Ongoing (Interventions Implemented as Appropriate) Goal: Patient-Specific Goal (Individualized) Outcome: Ongoing (Interventions Implemented as Appropriate) Goal: Absence of Hospital-Acquired Illness or Injury Outcome: Ongoing (Interventions Implemented as Appropriate) Goal: Optimal Comfort and Wellbeing Outcome: Ongoing (Interventions Implemented as Appropriate) Goal: Readiness for Transition of Care Outcome: Ongoing (Interventions Implemented as Appropriate) Problem: Fall Injury Risk Goal: Absence of Fall and Fall-Related Injury Outcome: Ongoing (Interventions Implemented as Appropriate) Problem: Dysrhythmia Goal: Normalized Cardiac Rhythm Outcome: Ongoing (Interventions Implemented as Appropriate) Problem: Adjustment to Illness (Cardiac Rhythm Management Device) Goal: Optimal Adjustment to Device Presence Outcome: Ongoing (Interventions Implemented as Appropriate) Problem: Bleeding (Cardiac Rhythm Management Device) Goal: Absence of Bleeding Outcome: Ongoing (Interventions Implemented as Appropriate) Problem: Device-Related Complication Risk (Cardiac Rhythm Management Device) Goal: Effective Device Function Outcome: Ongoing (Interventions Implemented as Appropriate) Problem: Infection (Cardiac Rhythm Management Device) Goal: Absence of Infection Signs and Symptoms Outcome: Ongoing (Interventions Implemented as Appropriate) Problem: Pain (Cardiac Rhythm Management Device) Goal: Acceptable Pain Level Outcome: Ongoing (Interventions Implemented as Appropriate) Problem: Respiratory Compromise (Cardiac Rhythm Management Device) Goal: Effective Oxygenation and Ventilation Outcome: Ongoing (Interventions Implemented as Appropriate) Elma Adams RN 5:17 AM * Brief Op Note - Heriberto Geronimo MD - 12/05/2023 5:03 PM EDT Brief Operative Note Patient Name: Serge Cabrera : [id number] MR#: [id number] Case Date: 12/05/2023 Surgeon: Surgeons and Role: * Heriberto Geronimo MD - Primary * Fabio Pringle MD - Fellow - Assisting Preoperative diagnosis: PRESYNCOPE WITH AF Postoperative diagnosis: s/p successful leadless pacemaker implant Procedure(s) (LRB): ELECTROPHYSIOLOGY PROCEDURE (Left) Anesthesia: General Findings: acceptable pacemaker function Complications: none Intake: Intraprocedure Crystalloid Total Intake lactated ringers 800.00 mL Total Intake 800 mL Transfusion No data found in the last 1 encounters. Output: Estimated Blood Loss: Urine Output:: (no urine output recorded) Other Output: (no other output recorded) Drains: none Specimens removed during surgery: None Disposition: awakened from anesthesia, extubated and taken to the recovery room in a stable condition, having suffered no apparent untoward event. Condition: doing well without problems Attestation: Heriberto Geronimo MD Case Date: 12/05/2023 I was present and I participated during the entire procedure (does not need to include opening and closing). (Please see the Surgical Encounter Summary for any Implant and Specimen details pertinent to this patient.) Surgical Infection Prevention Bundle Used? N/A * Plan of Care - Keron Humphrey RN - 12/05/2023 3:04 PM EDT OUTCOME EVALUATION NOTE: OUTCOME SUMMARY: Patient symptomatic with slow a-fib and pauses is getting a leadless permanent pacemaker this afternoon. PLAN MOVING FORWARD: Cont to monitor, probable discharge tomorrow. INDIVIDUALIZED FALL PREVENTION INTERVENTIONS: Patient-specific fall risk factors per assessment: [current deficits]: decond Assistance [level of assistance required for transfers and ambulation]: ind Supervision [direct monitoring required during toileting and ADLs]: call echeverria Surveillance [continuous indirect monitoring]: hourly rounds Patient-specific fall prevention interventions for sensory deficits provided, if applicable: CPG GOAL OUTCOME EVALUATION: * Plan of Care - Elma Adams RN - 12/04/2023 9:28 PM EDT OUTCOME EVALUATION NOTE: OUTCOME SUMMARY: Assumed care of Serge @1900. Pt A&Ox4, VSS on RA, afib on tele w/bradycardia. CPAP in place while sleeping. Denies CP/SOB for this RN. OOB independently, ambulating w/o issue. Daughter spent night. 15 beat MD VI notified, 2g IV mag given. Medicated per MAR. Shift otherwise uneventful. PLAN MOVING FORWARD: Continue to monitor D/c planning as appropriate Possible pacemaker implant (NPO since [place]) INDIVIDUALIZED FALL PREVENTION INTERVENTIONS: Patient-specific fall risk factors per assessment: [current deficits]: unfamiliar environment, telewiring, IV lines Assistance [level of assistance required for transfers and ambulation]: Independent Supervision [direct monitoring required during toileting and ADLs]: N/A Surveillance [continuous indirect monitoring]: Telemetry, pulseox Patient-specific fall prevention interventions for sensory deficits provided, if applicable: Bed near unit station, nonskid socks applied, personal belongings within reach, call echeverria in reach, hourlysafety rounds CPG GOAL OUTCOME EVALUATION: Problem: Adult Inpatient Plan of Care Goal: Plan of Care Review Outcome: Ongoing (Interventions Implemented as Appropriate) Goal: Patient-Specific Goal (Individualized) Outcome: Ongoing (Interventions Implemented as Appropriate) Goal: Absence of Hospital-Acquired Illness or Injury Outcome: Ongoing (Interventions Implemented as Appropriate) Goal: Optimal Comfort and Wellbeing Outcome: Ongoing (Interventions Implemented as Appropriate) Goal: Readiness for Transition of Care Outcome: Ongoing (Interventions Implemented as Appropriate) Problem: Fall Injury Risk Goal: Absence of Fall and Fall-Related Injury Outcome: Ongoing (Interventions Implemented as Appropriate) Problem: Dysrhythmia Goal: Normalized Cardiac Rhythm Outcome: Ongoing (Interventions Implemented as Appropriate) Problem: Adjustment to Illness (Cardiac Rhythm Management Device) Goal: Optimal Adjustment to Device Presence Outcome: Ongoing (Interventions Implemented as Appropriate) Problem: Bleeding (Cardiac Rhythm Management Device) Goal: Absence of Bleeding Outcome: Ongoing (Interventions Implemented as Appropriate) Problem: Device-Related Complication Risk (Cardiac Rhythm Management Device) Goal: Effective Device Function Outcome: Ongoing (Interventions Implemented as Appropriate) Problem: Infection (Cardiac Rhythm Management Device) Goal: Absence of Infection Signs and Symptoms Outcome: Ongoing (Interventions Implemented as Appropriate) Problem: Pain (Cardiac Rhythm Management Device) Goal: Acceptable Pain Level Outcome: Ongoing (Interventions Implemented as Appropriate) Problem: Respiratory Compromise (Cardiac Rhythm Management Device) Goal: Effective Oxygenation and Ventilation Outcome: Ongoing (Interventions Implemented as Appropriate) Elma Adams RN 5:41 AM * Plan of Care - Niki Coronado RN - 12/04/2023 6:13 PM EDT Problem: Adult Inpatient Plan of Care Goal: Plan of Care Review Outcome: Ongoing (Interventions Implemented as Appropriate) Goal: Patient-Specific Goal (Individualized) Outcome: Ongoing (Interventions Implemented as Appropriate) Goal: Absence of Hospital-Acquired Illness or Injury Outcome: Ongoing (Interventions Implemented as Appropriate) Goal: Optimal Comfort and Wellbeing Outcome: Ongoing (Interventions Implemented as Appropriate) Goal: Readiness for Transition of Care Outcome: Ongoing (Interventions Implemented as Appropriate) Problem: Fall Injury Risk Goal: Absence of Fall and Fall-Related Injury Outcome: Ongoing (Interventions Implemented as Appropriate) Problem: Dysrhythmia Goal: Normalized Cardiac Rhythm Outcome: Ongoing (Interventions Implemented as Appropriate) Problem: Adjustment to Illness (Cardiac Rhythm Management Device) Goal: Optimal Adjustment to Device Presence Outcome: Ongoing (Interventions Implemented as Appropriate) Problem: Bleeding (Cardiac Rhythm Management Device) Goal: Absence of Bleeding Outcome: Ongoing (Interventions Implemented as Appropriate) Problem: Device-Related Complication Risk (Cardiac Rhythm Management Device) Goal: Effective Device Function Outcome: Ongoing (Interventions Implemented as Appropriate) Problem: Infection (Cardiac Rhythm Management Device) Goal: Absence of Infection Signs and Symptoms Outcome: Ongoing (Interventions Implemented as Appropriate) Problem: Pain (Cardiac Rhythm Management Device) Goal: Acceptable Pain Level Outcome: Ongoing (Interventions Implemented as Appropriate) Problem: Respiratory Compromise (Cardiac Rhythm Management Device) Goal: Effective Oxygenation and Ventilation Outcome: Ongoing (Interventions Implemented as Appropriate) * Initial Assessments - Jamilah Guillermo MSW - 12/04/2023 12:42 PM EDT Office of Care Management Initial Assessment NATIVIDAD Doshi reviewed record and discussed patient with Care Team. Source of Information: Team, bedside nurse, medical record, and Patient, Child [employer]CHO[employer] PRINCIPAL Introduced self/reviewed role; services accepted. Admitted From: Transfer from another hospital Location: [facility] Reason for Hospitalization: low heart rate, and possible pacemaker Covid Vaccination Status: Unvaccinated Last COVID test: Past medical History: No past medical history on file. Hospitalizations Within the Past 30 Days: no previous admission in last 30 days Current Decision-Making Capacity: Self If AD's have not been completed the following surrogate would be surrogate decision maker per [place] surrogate decision making law. (Only good for 180 days) Any patient receiving care in [place] must abide by [place] law. The hierarchy for surrogate decision making is: (a) Patient???s spouse or civil union partner unless there is a divorce proceeding, separation agreement, or restraining order limiting that person???s relationship with the patient. (b) Any adult son or daughter of the patient. (c) Either parent of the patient. (d) Any adult brother or sister of the patient. (e) Any adult grandchild of the patient. (f) Any grandparent of the patient. (g) Any adult aunt, uncle, niece, or nephew of the patient. (h) A close friend of the patient. (i) The agent with financial power of research attorney or a conservator appointed in accordance with RSA 464-A. (j) The guardian of the patient???s estate. Advance Care Planning: Attempt Cardiopulmonary Resuscitation - Inpatient Received -Advanced Directive: Yes, on file Who is your DPOA-HC?: Child (Sanna Aguilar (daughter)) Current Coping/Education/Information Needs: None noted Current Functional Ability: Independent Functional Status Prior to Admission: Independent Prior ADLs & IADLs: Assistance Needed with ADLs & IADLs Groceries: Family / Friends Provide Groceries Home Environment: Others in the home: child(ashley), adult (Pt lives w/ daughter & MELODIE (his granddaughter, her , and their kids also live on the property). Pt reports to have a lot of good support.). Current Living Arrangements: home/apartment/condo. Accessibility Concerns:1-level home. No TAY. No concerns.. In the last 12 months, was there a time when you were not able to pay the mortgage or rent on time?: No In the past 12 months, how many times have you moved where you were living?: 1 At any time in the past 12 months, were you homeless or living in a custodial (including now)?: No In the past 12 months has the [employer], [employer], or water [employer] threatened to shut off services in your home?: No Within the past 12 months, you worried that your food would run out before you got the money to buymore.: Never true Within the past 12 months, the food you bought just didn't last and you didn't have money to get more.: Never true Resource / Environmental Concerns: Resource/Environmental Concerns: none In the past 12 months, has lack of transportation kept you from medical appointments or from getting medications?: No In the past 12 months, has lack of transportation kept you from meetings, work, or from getting things needed for daily living?: No Current DME: respiratory supplies (CPAP ([facility])) Home Address confirmed as: [address] [facility] [address] Social & Family Supports: All names listed below confirmed with patient as current and correct Extended Emergency Contact Information Primary Emergency Contact: [place] [address] [place] Relation: Child Current Care Provided by: self Provides Primary Care For: no one Caregiver if needed: none Quality of Family relationships: helpful, involved, supportive Community Resources being provided currently: other (see comments) (Pt receives wound care from [facility] on a weekly basis. Also typically receives PT from [facility], but due to leg wound, PT has been paused. Will likely resume once wound clears.) Behavioral Health History: None noted Substance Use/Abuse confirmed: Social History Tobacco Use Smoking Status Former Smokeless Tobacco Never In the past year have you used an illegal drug or used a prescription medication for non-medical reasons?: No 0 No problems reported 1-2 Low level 3-5 Moderate level 6-8 Substantial level 9- 10 Severe level In the past year have you had 5 or more drinks a day containing alcohol?: No 0 to 7 points: Low risk 8 to 15 points: Medium risk 16 to 19 points: High risk 20 to 40 points: Addiction likely Other Pertinent/Service Specific Information: Health/Prescription Coverage: Primary Insurance: MEDICARE Payor: MEDICARE / Plan: MEDICARE PART A & B / Product Type: *No Product type* / Secondary Insurance: [place] ONLY if patient has Medicare A&B - Does this patient have secondary insurance?: Yes ; Prescription Coverage: Yes Preferred Pharmacy: [id number] [place], [place] - [address] [place] [address] AT SEC OF [facility] & [address] [id number] [place] Status: Patient is a : No Primary Care Provider confirmed: Devorah Epstein MD [phone] Patient/Caregiver Goals of Treatment: Potential Needs for Transition of Care: unable to assess Agency Referrals: TBD Transportation: no concerns Transportation Anticipated: family or friend will provide (Sanna (daughter) will provide a ride) Concerns to be Addressed: unable to assess Assessment: Patient is admitted to Cardiology service for Afib/flutter, transient. Uses a CPAP (formerly known as [facility]). Pt notes receiving wound care at [facility] on a weekly basis. Had been receiving PT at [facility] up until late last year, but had to pause PT due to leg wound. PT need remains, but dependant on wound. Pt has good supports at home (lives w/ his daughter & MELODIE; also has a granddaughter & her family living on the same property). Plan: Pending hospital course. A member of the Care Management team will continue to monitor progress, follow for continuity of care and assist with transition of care planning. NATIVIDAD Thompson Cardiology Ext. [phone] * Consult Note - Giulia Ibarra RN - 12/04/2023 11:48 AM EDT Certified Wound Care Nurse Note Situation: Asked to see Serge Cabrera by Joshua Marie RN for RLE open wound 1 inch by 1.5inch. Background: eD-H notes reviewed for history, admitting diagnosis and active problem list. ? Issues/concerns identified: Patient uses hibiclens, Algidex Ag Hydrogel Gauze and CoFlex TLS Zinc Lite. [facility] to [facility] for wound care and his does the dressing at home. Dressings are done every Monday and Monday. ? Current Wound Care Recommendations reviewed: Wound Care will follow up on Monday. Follow hospital standard for pressure injury prevention and skin care. Refer to adult/pediatric pressure ulcer prevention job aid in the clinical policy library. ?? ? Please contact Siena Ibarra RN on pager [phone] or the wound care team at [phone] with skin and wound care concerns or questions. * Plan of Care - Jaswant Thomas RN - 12/04/2023 5:47 AM EDT SHIFT EVALUATION NOTE: SHIFT SUMMARY: AOx4. VSS on RA, assessment as charted. Pt denies CP or SOB. Bradycardic AFIB/flutter on tele with occasional pauses averaging around 2 seconds, see scanned documents. Heart rates normally in 30s-40s. See flowsheets for I&O. Call echeverria within reach. Uneventful evening for pt, pt slept between care. PLAN MOVING FORWARD: NPO since midnight for pacer placement. Echo this am 12/03 for diagnostics prior to pacer type decision Continue to monitor per protocol Discharge planning as appropriate INDIVIDUALIZED FALL PREVENTION INTERVENTIONS: Patient-specific fall risk factors per assessment: [current deficits]: Tele wires, SPO2 monitor wire, unfamiliar environment Assistance [level of assistance required for transfers and ambulation]: SBA Supervision [direct monitoring required during toileting and ADLs]: No Surveillance [continuous indirect monitoring]: Telemetry, continuous pulse ox CPG GOAL OUTCOME EVALUATION: Monitoring of progress towards goals remains ongoing for remainder of shift. Problem: Adult Inpatient Plan of Care Goal: Plan of Care Review Outcome: Ongoing (Interventions Implemented as Appropriate) Goal: Patient-Specific Goal (Individualized) Outcome: Ongoing (Interventions Implemented as Appropriate) Goal: Absence of Hospital-Acquired Illness or Injury Outcome: Ongoing (Interventions Implemented as Appropriate) Goal: Optimal Comfort and Wellbeing Outcome: Ongoing (Interventions Implemented as Appropriate) Goal: Readiness for Transition of Care Outcome: Ongoing (Interventions Implemented as Appropriate) Problem: Fall Injury Risk Goal: Absence of Fall and Fall-Related Injury Outcome: Ongoing (Interventions Implemented as Appropriate) Problem: Dysrhythmia Goal: Normalized Cardiac Rhythm Outcome: Ongoing (Interventions Implemented as Appropriate) Problem: Adjustment to Illness (Cardiac Rhythm Management Device) Goal: Optimal Adjustment to Device Presence Outcome: Ongoing (Interventions Implemented as Appropriate) Problem: Bleeding (Cardiac Rhythm Management Device) Goal: Absence of Bleeding Outcome: Ongoing (Interventions Implemented as Appropriate) Problem: Device-Related Complication Risk (Cardiac Rhythm Management Device) Goal: Effective Device Function Outcome: Ongoing (Interventions Implemented as Appropriate) Problem: Infection (Cardiac Rhythm Management Device) Goal: Absence of Infection Signs and Symptoms Outcome: Ongoing (Interventions Implemented as Appropriate) Problem: Pain (Cardiac Rhythm Management Device) Goal: Acceptable Pain Level Outcome: Ongoing (Interventions Implemented as Appropriate) Problem: Respiratory Compromise (Cardiac Rhythm Management Device) Goal: Effective Oxygenation and Ventilation Outcome: Ongoing (Interventions Implemented as Appropriate) * Consult Note - Nikki Serrano MD - 12/03/2023 12:23 PM EDT Inpatient Cardiac Electrophysiology- Initial Consultation Date of Consultation: 12/03/2023 Admit Date: 12/02/2023 Patient Location: [facility] Attending Surgical Instrument Maker: Maggie Reason for Consult: We are seeing Serge Cabrera at the request of Albert Oreilly MD of the cardiology service for the evaluation of cardiac conduction disease. I have reviewed the availablerecords, interviewed, and examined the patient. Assessment: Serge Cabrera is a 83 y.o. male from electrophysiology is consulted in setting of atrial fibrillation with slow ventricular response . Mr. Cabrera likely has advanced conduction disease, given his slow ventricular rate in atrial fibrillation. 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 Underlying conduction disease is probably related to age, hypertension, chronic kidney disease, perhaps augmented by chronic dose of bisoprolol which she was taking in setting of his coronary artery disease. Given his symptoms and review of his telemetry and EKGs, he has indication for permanent pacemaker.Type of device, however, will depend on his ejection fraction for whether we consider a leadless system versus a transvenous system. If leadless, he would not need atrial tracking (Micra VR). If transvenous, he would not need an atrial lead given his persistent atrial fibrillation but would consider single chamber PPM (with or without LBBAP) versus STONE CARRIAGE OPERATOR pending echo. Recommendations: -Recommend 48 hours of bisoprolol washout at least (last dose was 6/8 AM) -Recommend TTE -Pending results, if with normal EF would strongly consider Micra VR given open wound on his leg -If HFmrEF or HFrEF, could consider transvenous device with implantation of LBBAP lead though cognizant that patient has an ongoing wound of RLE which is healing and not currently infected -Leadless and transvenous device discussed in detail with patient and daughter including risks, benefits, and indications, they are amenable to proceed; I suspect patient will need anesthesia (breathing difficult when laying flat, shoulder pain); consent has NOT yet been signed pending device selection -Left upper extremity IV Active Problem List: #Atrial Fibrillation with Slow Ventricular Response, Symptomatic #CAD s/p 2V CABG 2017 -Post-surgery pericardial effusion with 1100 mL drained #Atrial Fibrillation, Permanent (not on anticoagulation per patient preference) #CKD #HTN #HLD #GERD HPI: Mr. Cabrera is a pleasant 83 year year old gentleman with the above medical and cardiac history for whom electrophysiology was consulted in the setting of atrial fibrillation with slow ventricularresponse. History largely gathered from patient, chart review, and his daughter, Sanna who is present in the room as well. He reports initial symptoms of dizziness and lightheadedness with a sensation of presyncope going back to August 2023. At that time, I he was undergoing treatment of a right lower extremity wound (?venous stasis ulcer) and was started on Levaquin. He seems to tie this and is a instigating factor, but reports that after he he finished that medication, his symptoms went away. He then reports that inthe last month or so, he has had intermittent episodes of again dizziness, lightheadedness, presyncope, and heavy breathing seemingly precipitated by getting up and walking, or having to walk even a short distance. He says that these were not initially present every single time he would try to exert himself, but in the last few days, these symptoms have reliably occurred with any attempt to exerthimself. He went to outside hospital, where he was found to be in suspected atrial fibrillation with slow ventricular response, overnight EKG in the PM 6/8 does seem to indicate underlying atrial fibrillationwith CHB and junctional escape rhythm with a left bundle branch block pattern. Telemetry here has shown atrial fibrillation with slow ventricular response as well as periods of complete heart block with junctional escape. 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 He currently lives in [place], [place]. He is originally from [facility] [place] [facility] [place]. Review of Systems: 10 point review of systems completed, pertinent findings are noted in the HPI. Past Medical History Outpt Meds: No current facility-administered medications on file prior to encounter. Current Outpatient Medications on File Prior to Encounter Medication Sig Dispense Refill losartan (COZAAR) 25 mg Tablet Take 25 mg by mouth daily. rosuvastatin (CRESTOR) 20 mg Tablet Take 20 mg by mouth daily. omeprazole (PRILOSEC) 20 mg Capsule, Delayed Release(E.C.) Take 20 mg by mouth daily. aspirin 81 mg Tablet, Delayed Release (E.C.) Take 81 mg by mouth daily. Allergies: Allergies Allergen Reactions Levaquin [Levofloxacin] Shortness Of Breath Fentanyl Nausea And Vomiting Family history: Daughter has pacemaker (?iatrogenic from prior ablations) Social History: Retired truck caterer ([employer] / [employer]); from [place] originally Vitals: Last value Range last 24 hrs Temperature Temp: 36.4 ??C (97.6 ??F) Temp: [36.4 ??C (97.6 ??F)-36.9 ??C (98.4 ??F)] Heart Rate Heart Rate: (!) 37 Heart Rate: [29-46] Blood Pressure BP: 130/73 BP: (108-157)/(49-108) Respiratory Rate Resp: 17 Resp: [16-19] SpO2 SpO2: 99 % SpO2: [93 %-99 %] Examination: Physical Exam Constitutional: AOx3. No distress. Cardiovascular: Normal rate and regular rhythm. Pulmonary/Chest: Effort normal. No respiratory distress. Musculoskeletal: Normal range of motion. He exhibits no edema. Neurological: Oriented to person, place, and time. Skin: Skin is warm and dry. Bilateral lower extremities are wrapped. There Labs reviewed, pertinent for: Hemoglobin 13.1 Creatinine 1.86 Echocardiogram: Pending [facility] Echocardiogram Last was September 2023: EF 50% EKG: EKG here: Atrial Fibrillation, complete heart block junctional rhythm with LBBB pattern Prior ECGs: Atrial fibrillation, conducting, with RBBB pattern Telemetry shows AF with slow ventricular response Case was discussed with Dr. Serrano who agrees with recommendations as documented above. X Consult service will continue to follow patient. Recommendations are above, please page if further consultation required. Fabio Pringle MD 12/03/2023 Pager #[phone] Staff addendum: I have seen and evaluated the patient, and reviewed the available medical records. I agree with the findings, physical examination, and assessment of Dr. Pringle as detailed above. Mr. Cabrera has slow AF with, at times, CHB and junctional escape with LBBB pattern. It is prudentto allow BB washout before committing to permanent pacing, but we are skeptical that BB washout alone with result in resolution of bradycardia. Mr. Cabrera has ischemic heart disease. We await an updated echo primarily for assessment of LVEF. If normal, would strongly consider leadless pacing (micra VR) to reduce infection risk. Plan per Dr. Castaneda. Nikki Serrano MD 12/03/2023 8:05 PM * Plan of Care - Radha Camara RN - 12/03/2023 9:33 AM EDT OUTCOME EVALUATION NOTE: OUTCOME SUMMARY: VSS on RA, denies pain/SOB/lightheadedness/dizziness. Afib with slow RVR with HR in the 30s on tele, frquent 2-3 sec pauses noted - provider notified, ok to be notified for pauses more than 3 secs. EP consulted for possible pacemaker placement tomorrow 12/04/23 - for NPO after midnight. 14.33 sec ofWCT noted, pt asymptomatic and was sitting on the chair, denies chest pain - provider notified, magnesium given IV. CPG GOAL OUTCOME EVALUATION: Problem: Adult Inpatient Plan of Care Goal: Plan of Care Review Outcome: Ongoing (Interventions Implemented as Appropriate) Goal: Patient-Specific Goal (Individualized) Outcome: Ongoing (Interventions Implemented as Appropriate) Goal: Absence of Hospital-Acquired Illness or Injury Outcome: Ongoing (Interventions Implemented as Appropriate) Goal: Optimal Comfort and Wellbeing Outcome: Ongoing (Interventions Implemented as Appropriate) Goal: Readiness for Transition of Care Outcome: Ongoing (Interventions Implemented as Appropriate) Problem: Fall Injury Risk Goal: Absence of Fall and Fall-Related Injury Outcome: Ongoing (Interventions Implemented as Appropriate) Problem: Dysrhythmia Goal: Normalized Cardiac Rhythm Outcome: Ongoing (Interventions Implemented as Appropriate) Problem: Adjustment to Illness (Cardiac Rhythm Management Device) Goal: Optimal Adjustment to Device Presence Outcome: Ongoing (Interventions Implemented as Appropriate) Problem: Bleeding (Cardiac Rhythm Management Device) Goal: Absence of Bleeding Outcome: Ongoing (Interventions Implemented as Appropriate) Problem: Device-Related Complication Risk (Cardiac Rhythm Management Device) Goal: Effective Device Function Outcome: Ongoing (Interventions Implemented as Appropriate) Problem: Infection (Cardiac Rhythm Management Device) Goal: Absence of Infection Signs and Symptoms Outcome: Ongoing (Interventions Implemented as Appropriate) Problem: Pain (Cardiac Rhythm Management Device) Goal: Acceptable Pain Level Outcome: Ongoing (Interventions Implemented as Appropriate) Problem: Respiratory Compromise (Cardiac Rhythm Management Device) Goal: Effective Oxygenation and Ventilation Outcome: Ongoing (Interventions Implemented as Appropriate) * Plan of Care - Joshua Marie RN - 12/03/2023 5:33 AM EDT Pt HR rate has been in the 30 all night. Hr sometime goes to around 25-30 for a few seconds and hashad couple pauses around 3 seconds long. Patient Pressure remains above 65 map. Patient still had the epigastric discomfort to increases in size to his neck with activity. No episodes of the SOB and has remained on the RA. Patient wound care done following home routine per the MD approval. Wound note to have some new drainage per daugther and patient. Wound care consulted to further assess. Problem: Adult Inpatient Plan of Care Goal: Plan of Care Review Outcome: Ongoing (Interventions Implemented as Appropriate) Goal: Patient-Specific Goal (Individualized) Outcome: Ongoing (Interventions Implemented as Appropriate) Goal: Absence of Hospital-Acquired Illness or Injury Outcome: Ongoing (Interventions Implemented as Appropriate) Goal: Optimal Comfort and Wellbeing Outcome: Ongoing (Interventions Implemented as Appropriate) Goal: Readiness for Transition of Care Outcome: Ongoing (Interventions Implemented as Appropriate) documented in this encounter Plan of Treatment Upcoming Encounters Date Type Department Care Team (Late st Contact Info) Description 03/28/2024 10:00 AM EDT Hospital Encounter [place] [address] Arrived Scheduled Orders Name Type Priority Associated Diagnoses Orde r Schedule EKG 12 Lead ECG Routine Atrial fib/flutter, transient One Time for 1 Occurrences starting 12/04/2023 until 12/04/2023 Scheduled Referrals Name Type Priority Associated Diagnoses Order Schedule Referral to Cardiology Outpatient Referral Routine Atrial fib/flutter, transient Ordered: 12/06/2023 documented as of this encounter Procedures Procedure Name Priority Date/Time Associated Diagnosis Comments XR CHEST PA AND LATERAL Routine 12/06/19 6:59 AM EDT HC HEMOGRAM Routine 12/06/2023 1:53 AM EDT HC PHOSPHORUS, SERUM Routine 12/06/2023 1:53 AM EDT HC MAGNESIUM, SERUM Routine 12/06/2023 1 :53 AM EDT BASIC METABOLIC PANEL (NON-FASTING) Routine 12/06/2023 1:53 AM EDT ELECTROPHYSIOLOGY PROCEDURE Routine 12/05/2023 3:14 PM EDT HC HEMOGRAM Routine 12/05/2023 3:32 AM EDT HC PHOSPHORUS, SERUM Routine 12/05/2023 3:32 AM EDT HC MAGNESIUM, SERUM Routine 12/05/2023 3 :32 AM EDT BASIC METABOLIC PANEL (NON-FASTING) Routine 12/05/2023 3:32 AM EDT HC PHOSPHORUS, SERUM Routine 12/04/2023 9:42 AM EDT HC MAGNESIUM, SERUM Routine 12/04/2023 9 :42 AM EDT BASIC METABOLIC PANEL (NON-FASTING) Routine 12/04/2023 9:42 AM EDT ECHO COMPLETE W CONTRAST Routine 024 9:31 AM EDT Atrial fib/flutter, transient HC RANDOM URINE PEP Routine 12/03/2023 1 :30 AM EDT HC IMMUNOGLOBULIN FREE LIGHT CHAINS, SERUM Routine 12/03/2023 1:00 AM EDT HC ANAPLSMA PHGCYTOPHLM AMP PRB Routine 12/03/2023 1:00 AM EDT HC LYME TOTAL (SCREEN) Routine 1:00 AM EDT IMMUNOGLOBULINS, QUANTITATIVE Routine 12/03/2023 1:00 AM EDT BMP W/FASTING GLUCOSE Routine 12/03/2023 1:00 AM EDT IMMUNOFIXATION ELECTROPHORESIS Routine 12/03/2023 1:00 AM EDT HEMOGRAM Routine 12/03/2023 1:00 AM EDT DIFFERENTIAL, AUTOMATED Routine 12/03/19 1:00 AM EDT HC PARTIAL THROMBOPLASTIN TIME Routine 12/03/2023 1:00 AM EDT HC PROTHROMBIN TIME Routine 12/03/2023 1 :00 AM EDT HC CBC,PLT & AUTO DIFF Routine 1:00 AM EDT HC TRIGLYCERIDES Routine 12/03/2023 1:00 AM EDT HC THYROID STIMULATING HORMONE, SERUM Routine 12/03/2023 1:00 AM EDT HC SERUM PROT. ELECTROPHORESIS Routine 12/03/2023 1:00 AM EDT HC PHOSPHORUS, SERUM Routine 12/03/2023 1:00 AM EDT HC PROBNP Routine 12/03/2023 1:00 AM EDT HC MAGNESIUM, SERUM Routine 12/03/2023 1 :00 AM EDT HC LDL CHOLESTEROL, DIRECT Routine 12/03/2023 1:00 AM EDT HC CHOLESTEROL Routine 12/03/2023 1:00 AM EDT HC HEMOGLOBIN A1C Routine 12/03/2023 1:0 0 AM EDT HEPATIC FUNCTION PANEL Routine 1:00 AM EDT documented in this encounter Results * XR Chest PA & Lateral (Generic) (12/06/2023 6:59 AM EDT) WORKSTATION ID [id number] RAD Anatomical Region Laterality Modality Chest N/A Digital Radiogra phy Impressions 12/06/2023 9:14 AM EDT New leadless pacemaker in the right ventricle. No pneumothorax. Thank you for letting us participate in the care of this patient. ??If you are a health care provider and have any questions regarding this report, please contact the number below. ??For patients who have questions please contact the health ambulatory care that requested your imaging first. ? Narrative 12/06/2023 9:14 AM EDT EXAMINATION: XR CHEST PA AND LATERAL (GENERIC) CLINICAL HISTORY: Post CIED implantation, assess for lead placement and rule out pneumothorax TECHNIQUE: PA and lateral views of the chest COMPARISON: 01/02/2018 FINDINGS: The cardiac silhouette is stable status post median sternotomy and CABG. New leadless pacemaker in the right ventricle. Mild scarring at the left lung base. No pleural effusion or pneumothorax. Procedure Note Henrique Cheek MD - 12/06/2023 EXAMINATION: XR CHEST PA AND LATERAL (GENERIC) CLINICAL HISTORY: Post CIED implantation, assess for lead placement andrule out pneumothorax TECHNIQUE: PA and lateral views of the chest COMPARISON: 01/02/2018 FINDINGS: The cardiac silhouette is stable status post median sternotomy and CABG.New leadless pacemaker in the right ventricle. Mild scarring at the left lung base. No pleural effusion orpneumothorax. IMPRESSION New leadless pacemaker in the right ventricle. No pneumothorax. Thank you for letting us participate in the care of this patient. If youare a health care provider and have any questions regarding this report,please contact the number below. For patients who have questions please contactthe health ambulatory care that requested your imaging first. Albert Oreilly MD IMG DX ORDERABLES * (ABNORMAL) Hemogram (12/06/2023 1:53 AM EDT) WBC 7.6 4.0 - 9.5 x10(3)/[facility] RBC 4.84 4.58 - 5.54 x10(6)/[facility] Hemoglobin 14.0 13.7 - 16.5 g/dL [facility] Hematocrit 44.2 40.5 - 48.5 % [facility] MCV 91.3 82.9 - 93.1 fL [facility] MCH 28.9 27.5 - 32.1 pg [facility] MCHC 31.7(L) 32.0 - 35.7 g/dL [facility] Platelets 140(L) 145 - 357 x10(3)/[facility] RDWSD 51.2(H) 36.0 - 45.0 fL [facility] RDWCV 15.4(H) 11.4 - 13.8 % [facility] MPV 10.3 7.6 - 12.9 fL [facility] nRBC % Auto 0.0 % [facility] nRBC Abs Auto 0.000 0.000 - 0.000 x10(3)/mcL [facility] Blood 12/06/2023 1:53 AM EDT 12/06/2023 2:23 AM EDT Narrative Resulting Agency Comment Spec In Lab Albert Oreilly MD HEMATOLOGY ORDERAB LES Performing Organization Address [facility]/ZIP Co de Phone Number [facility] [place] [address] * Phosphorus (12/06/2023 1:53 AM EDT) Phosphorus 2.8 2.5 - 4.5 mg/dL [facility] Blood 12/06/2023 1:53 AM EDT 12/06/2023 2:23 AM EDT Narrative Resulting Agency Comment Spec In Lab Albert Oreilly MD CHEMISTRY ORDERABL ES Performing Organization Address [facility] Co de Phone Number [facility] [place] [address] * Magnesium (12/06/2023 1:53 AM EDT) Magnesium 0.86 0.69 - 1.07 mmol/L [facility] Blood 12/06/2023 1:53 AM EDT 12/06/2023 2:23 AM EDT Narrative Resulting Agency Comment Spec In Lab Albert Oreilly MD CHEMISTRY ORDERABL ES Performing Organization Address [facility] Co de Phone Number [facility] [place] [address] * (ABNORMAL) Basic Metabolic Panel (non-fasting) (12/06/2023 1:53 AM EDT) Glucose Lvl 254(H) 65 - 199 mg/dL [facility] Comment:Diabetes: >=200 mg/d L plus symptoms BUN 30(H) 10 - 20 mg/dL [facility] Creatinine 1.47 0.80 - 1.50 mg/dL [facility] Sodium 139 135 - 145 mmol/L [facility] Potassium 4.0 3.5 - 5.0 mmol/L [facility] Comment: Please note: ??Patients with WBC >100,000 may have falsely elevated Potassium levels. ??For accurate Potassium quantification in these patients send serum separator tube (gold top) for subsequent determinations. ??Contact the Clinical Chemistry Laboratory if there are any questions. Chloride 104 98 - 107 mmol/L [facility] CO2 19(L) 22 - 31 mmol/L [facility] Anion Gap 16(H) 5 - 15 mmol/L [facility] Calcium 9.8 8.5 - 10.5 mg/dL [facility] Estimated GFR 47(L) >=60 mL/min/1. 73 m?? [facility] Comment: This patient's estimated GFR was calculated using the 2020 CKD-EPI equation. The estimated GFR can vary from the measured GFR by up to 30% in the absence of rapidly changing kidney function. Assessment of the estimated GFR is not appropriate when creatinine concentrations are rapidly changing. For clinical situations in which a more precise estimate of GFR is necessary, consider alternative methods of GFR estimation such as a 24-hour urine creatinine clearance. Assignment of CKD stage 1-5 for patients with an eGFR near the transition point between stages may be based on clinical assessment of muscle mass and symptoms in addition to eGFR. Blood 12/06/2023 1:53 AM EDT 12/06/2023 2:23 AM EDT Narrative Resulting Agency Comment Spec In Lab Albert Oreilly MD CHEMISTRY ORDERABL ES [facility] [place] [address] * ELECTROPHYSIOLOGY PROCEDURE (12/05/2023 3:14 PM EDT) Anatomical Region Laterality Modality Other Narrative 12/06/2023 10:27 PM EDT [facility] Cardiac Electrophysiology Procedure Report Procedure: Implant leadless pacemaker Procedure Date: 12/05/2023 Laboratory Apparatus Glass Blower: Heriberto Geronimo MD Incinerator Operator: Fabio Pringle MD Primary Care physician: Devorah Epstein MD Referring physician: Mei Sanchez MD Anesthesia: general anesthesia provided by anesthesia service Background: NrDarnell Cabrera ( 40) is an 83 y.o. 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 Operative Report: After obtaining informed consent, the patient was brought to the procedure room in the fasting and nonsedated state. ??Right groin prepped with chlorhexidine scrub.The anesthesia service provided sedation. ??Local anesthesia injected in the right groin. The location of the femoral head was confirmed by fluoroscopy. ??Femoral vein accessed with ultrasound guidance and single puncture. Wire advanced and 8 Fr sheath placed into the vessel under fluoroscopic guidance. Amplatz Super Stiff wire passed into the SVC. ??Serial dilation performed with 16F, 20F, 24F dilators. ??Then, the 27Fr Micra sheath was advanced under fluoro guidance to the RA. ??3000 units of heparin IV was given. ?? The Micra device and positioning sheath was advanced across the tricuspid valve, aimed toward the septum. ??This was confirmed with contrast injection in both the RENEE and IRISH views. ??The Micra was then deployed. ?? Initial electrical parameters were borderline acceptable. Tug test confirmed engagement of at least 2 tines. Given injury seen on device EGM, a decision was made to observe with intermittent checking of device parameters. Despite 10 minutes of waiting, parameters improved slightly but remained overall unacceptable. Therefore the Micra was pulled back into the delivery sheath. It was again positioned against the septum, this time in a spot higher than the previous placement. RENEE and IRISH contrast injection views showed adequate positioning. After tug test electrical parameters remained excellent. The retention suture was cut and removed. ?? A [id number] stitch was placed around the sheath puncture site with syvek dressing underneath and the sheath removed with good hemostasis after a 20 minute manual hold. ?? Implant: Medtronic Micra VR Model [id number] Serial [id number] Programming: VVIR 60-120 Sensin.3 mV Impedance 830 ohm Threshold: 0.38V @ 0.24 ms Estimated Blood Loss: 20 cc Complications: None immediate Total Fluoroscopy Time: 8.3 minutes Total Fluoroscopy Dose: 20.3 Gy-cm^2 Conclusion / Plan: -Successful placement of Micra VR leadless pacemaker for symptomatic bradycardia due to AV block in the setting of permanent atrial fibrillation -Remove figure of 8 suture tomorrow AM -2-view CXR tomorrow AM -NPO @ MN in case retrieval is required -Device interrogation tomorrow AM -Standard 1-week activity restriction post femoral access Procedures performed: leadless pacemaker implantation (cpt 20477) Heriberto Geronimo MD S Cardiac Electrophysiology 12/06/2023 10:26 PM . Heriberto Geronimo MD EP PROCEDURE ORDERAB LES * (ABNORMAL) Hemogram (12/05/2023 3:32 AM EDT) WBC 4.2 4.0 - 9.5 x10(3)/[facility] RBC 4.54(L) 4.58 - 5.54 x10(6)/[facility] Hemoglobin 13.2(L) 13.7 - 16.5 g/dL [facility] Hematocrit 41.7 40.5 - 48.5 % [facility] MCV 91.9 82.9 - 93.1 fL [facility] MCH 29.1 27.5 - 32.1 pg [facility] MCHC 31.7(L) 32.0 - 35.7 g/dL [facility] Platelets 106(L) 145 - 357 x10(3)/[facility] RDWSD 51.9(H) 36.0 - 45.0 fL [facility] RDWCV 15.5(H) 11.4 - 13.8 % [facility] MPV 10.5 7.6 - 12.9 fL [facility] nRBC % Auto 0.0 % [facility] nRBC Abs Auto 0.000 0.000 - 0.000 x10(3)/[facility] Blood 12/05/2023 3:32 AM EDT 12/05/2023 3:53 AM EDT Narrative Resulting Agency Comment Spec In Lab Albert Oreilly MD HEMATOLOGY ORDERAB LES Performing Organization Address [facility] [place] [address] * Phosphorus (12/05/2023 3:32 AM EDT) Phosphorus 3.9 2.5 - 4.5 mg/dL [facility] Blood 12/05/2023 3:32 AM EDT 12/05/2023 3:53 AM EDT Narrative Resulting Agency Comment Spec In Lab Albert Oreilly MD CHEMISTRY ORDERABL ES Performing Organization Address [facility] de Phone Number [facility] [place] [address] * Magnesium (12/05/2023 3:32 AM EDT) Magnesium 0.90 0.69 - 1.07 mmol/L [facility] Blood 12/05/2023 3:32 AM EDT 12/05/2023 3:53 AM EDT Narrative Resulting Agency Comment Spec In Lab Albert Oreilly MD CHEMISTRY ORDERABL ES Performing Organization Address [facility] Co de Phone Number [facility] [place] [address] * (ABNORMAL) Basic Metabolic Panel (non-fasting) (12/05/2023 3:32 AM EDT) Glucose Lvl 140 65 - 199 mg/dL [facility] Comment:Diabetes: >=200 mg/d L plus symptoms BUN 33(H) 10 - 20 mg/dL [facility] Creatinine 1.54(H) 0.80 - 1.50 mg/dL [facility] Sodium 141 135 - 145 mmol/L [facility] Potassium 4.1 3.5 - 5.0 mmol/L [facility] Comment: Please note: ??Patients with WBC >100,000 may have falsely elevated Potassium levels. ??For accurate Potassium quantification in these patients send serum separator tube (gold top) for subsequent determinations. ??Contact the Clinical Chemistry Laboratory if there are any questions. Chloride 108(H) 98 - 107 mmol/L [facility] CO2 22 22 - 31 mmol/L [facility] Anion Gap 11 5 - 15 mmol/L [facility] Calcium 9.7 8.5 - 10.5 mg/dL [facility] Estimated GFR 44(L) >=60 mL/min/1. 73 m?? [facility] Comment: This patient's estimated GFR was calculated using the 2020 CKD-EPI equation. The estimated GFR can vary from the measured GFR by up to 30% in the absence of rapidly changing kidney function. Assessment of the estimated GFR is not appropriate when creatinine concentrations are rapidly changing. For clinical situations in which a more precise estimate of GFR is necessary, consider alternative methods of GFR estimation such as a 24-hour urine creatinine clearance. Assignment of CKD stage 1-5 for patients with an eGFR near the transition point between stages may be based on clinical assessment of muscle mass and symptoms in addition to eGFR. Blood 12/05/2023 3:32 AM EDT 12/05/2023 3:53 AM EDT Narrative Resulting Agency Comment Spec In Lab Albert Oreilly MD CHEMISTRY ORDERABL ES Performing Organization Address [facility] Co de Phone Number [facility] [place] [address] * Phosphorus (12/04/2023 9:42 AM EDT) Pathologist [facility] Phosphorus 3.5 2.5 - 4.5 mg/dL [facility] Blood 12/04/2023 9:42 AM EDT 12/04/2023 10:20 AM EDT Narrative Resulting Agency Comment Spec In Lab Albert Oreilly MD CHEMISTRY ORDERABL ES Performing Organization Address [facility] Co de Phone Number [facility] [place] [address] * Magnesium (12/04/2023 9:42 AM EDT) Pathologist [facility] Magnesium 0.96 0.69 - 1.07 mmol/L [facility] Blood 12/04/2023 9:42 AM EDT 12/04/2023 10:20 AM EDT Narrative Resulting Agency Comment Spec In Lab Albert Oreilly MD CHEMISTRY ORDERABL ES Performing Organization Address [facility] Co de Phone Number [facility] [place] [address] * (ABNORMAL) Basic Metabolic Panel (non-fasting) (12/04/2023 9:42 AM EDT) Glucose Lvl 131 65 - 199 mg/dL [facility] Comment:Diabetes: >=200 mg/d L plus symptoms BUN 36(H) 10 - 20 mg/dL [facility] Creatinine 1.59(H) 0.80 - 1.50 mg/dL [facility] Sodium 140 135 - 145 mmol/L [facility] Potassium 4.3 3.5 - 5.0 mmol/L [facility] Comment: Please note: ??Patients with WBC >100,000 may have falsely elevated Potassium levels. ??For accurate Potassium quantification in these patients send serum separator tube (gold top) for subsequent determinations. ??Contact the Clinical Chemistry Laboratory if there are any questions. Chloride 106 98 - 107 mmol/L [facility] CO2 19(L) 22 - 31 mmol/L [facility] Anion Gap 15 5 - 15 mmol/L [facility] Calcium 10.4 8.5 - 10.5 mg/dL [facility] Estimated GFR 43(L) >=60 mL/min/1. 73 m?? [facility] Comment: This patient's estimated GFR was calculated using the 2020 CKD-EPI equation. The estimated GFR can vary from the measured GFR by up to 30% in the absence of rapidly changing kidney function. Assessment of the estimated GFR is not appropriate when creatinine concentrations are rapidly changing. For clinical situations in which a more precise estimate of GFR is necessary, consider alternative methods of GFR estimation such as a 24-hour urine creatinine clearance. Assignment of CKD stage 1-5 for patients with an eGFR near the transition point between stages may be based on clinical assessment of muscle mass and symptoms in addition to eGFR. Blood 12/04/2023 9:42 AM EDT 12/04/2023 10:20 AM EDT Narrative Resulting Agency Comment Spec In Lab Albert Oreilly MD CHEMISTRY ORDERABL ES [facility] [place] [address] * ECHO COMPLETE W CONTRAST (12/04/2023 9:31 AM EDT) Anatomical Region Laterality Modality Cardiac Other 12/04/2023 8:27 AM EDT Narrative 12/04/2023 10:10 AM EDT [address] [place] [address] ? Echocardiogram Report Name: SERGE CABRERA ? Study Date: 12/04/2023 08:27 AMBP: 180/80 mmHg ? Patient Location: [address] : 1940 ? Height: 183 cm ? Account: [id number] Age: 83 yrs ? Weight: 127 kg Gender: Male ?BSA: 2.5 m2 Ordering Physician: ALBERT OREILLY Referring Physician: MEI SANCHEZ Performed By: Kaden Anthony RDCS Reason For Study: Atrial fib/flutter, transient Exam Location: [facility]. Interpretation Summary -Wall thickness is moderately increased with a prominent basal septum measuring up to 2.4cm without LVOT obstruction.Left ventricular systolic function is normal. The left ventricular ejection fraction is 63% by Reilly's biplane. There are segmental wall motion abnormalities which are predominantly inferior and inferoseptal. (See attached PDF) -Right ventricle is mildly dilated. Right ventricular wall thickness is mildly increased. Right ventricular systolic function is mildly decreased. -There is moderate calcific aortic stenosis. Mean gradient 10mmHg, DI 0.35, MICHAEL 1.4cm2, SVi 39ml/m2. -The aortic root is dilated. The diameter at the level of the sinuses of Valsalva is 4.4 cm. The ascending aorta is dilated. The maximum diameter of the proximal ascending aorta is 4.7 cm. Compared to the prior study in 2018 the LVEF decreased from 80% to 63% with new inferior and inferoseptal regional wall motion abnormality. There is now moderate aortic stenosis by visual assessment, DI, and estimated MICHAEL. Procedure Complete-81667. Image enhancement Optison was used for left ventricular opacification. Suboptimal quality. The rhythm is atrial fibrillation. Left Ventricle Left ventricle is of normal size. Wall thickness is moderately increased. There is no ventricular septal defect. Severely increased thickness of the basal septum with no obstruction to LV outflow. Left ventricular systolic function is normal. The left ventricular ejection fraction is 63% by Reilly's biplane. There are segmental wall motion abnormalities. Right Ventricle Right ventricle is mildly dilated. Right ventricular wall thickness is mildly increased. Right ventricular systolic function is mildly decreased. Left Atrium The left atrium is severely dilated. The interatrial septum is not well visualized. Right Atrium The right atrium is moderately dilated. Aortic Valve The aortic valve is probably trileaflet. The aortic valve is moderately calcified. There is calcification of the aortic annulus. There is moderate aortic stenosis. The peak instantaneous gradient across the aortic valve is 25.2 mmHg. The mean gradient across the aortic valve is 9.6 mmHg. The aortic valve area calculated using the continuity equation is 1.4 cm^2. The stroke volume index is 38.9 mL/m2. The dimensionless index is 0.35. The highest gradient is obtained from the right sternal border window using the imaging probe. There is trace aortic regurgitation. Mitral Valve The mitral valve is structurally and functionally normal. Leaflets appear tethered. There is mild mitral regurgitation. Tricuspid Valve The tricuspid valve is structurally and functionally normal. There is trace tricuspid regurgitation. Pulmonic Valve The pulmonic valve appears to be structurally and functionally normal. There is no pulmonic valve regurgitation. Great Arteries The aortic root is dilated. The diameter at the level of the sinuses of Valsalva is 4.4 cm. The transverse aorta is not well visualized. The ascending aorta is dilated. The maximum diameter of the proximal ascending aorta is 4.7 cm. Venous Inferior vena cava is not well visualized. Pericardium/Pleural There is no pericardial effusion. Hemodynamics Pulmonary artery hypertension could not be assessed due to inadequate tricuspid regurgitation jet. Left ventricular filling pressure is increased. Left ventricular diastolic function is abnormal. Severity indeterminate due to atrial fibrillation. Ejection Fraction ?2D Measurements ? Volumes LV Biplane EF: 63.2 % ? IVSd: 2.4 cm ? LA Volume Index: ?LVIDd: 4.8 cm ?LVPWd: 1.6 cm ?54.1 ml/m2 ?RWT: 0.67 {ratio} ?RA A4Cs_phl: 32.4 cm2 ? RA ESV Indexed: ?LV mass(C)d: 460.7 grams ?LV mass(C)dI: 187.1 grams/m2 ?? 48.7 ml/m2 ?Ao root diam: 4.4 cm ? EDV Biplane: 146.0 ml ?Ao root diam index: 1.8 ?EDV BP Indexed: ?asc Aorta Diam: 4.7 cm ? 59.3 ml/m2 ?LVOT diam: 2.3 cm ?ESV Biplane: 53.8 ml ? ESV BP Indexed: ? 21.9 ml/m2 ? SV(LVOT): 95.7 ml ? LV Stroke Volume: 95.0 ml ? SI(LVOT): 38.9 ml/m2 Doppler LV V1 VTI: 22.9 cm LVOT max Velocity: 88.9 cm/sec Ao V2 VTI: 66.2 cm Ao Max: 250.3 cm/sec Ao valve max: 25.2 mmHg Ao valve mean: 9.6 mmHg MV E max juan alberto: 126.5 cm/sec Lat Peak E' Juan Alberto: 7.0 cm/sec E/ e' (lat): 18.2 Med Peak E' Juan Alberto: 3.0 cm/sec E/e' (med): 41.5 E/e' Average: 29.8 MICHAEL(I,D): 1.4 cm2 Dimensionless index Aov: 0.35 I ?WMSI = 1.31 ? % Normal = 69 ?Segments ??Size X - Cannot ?? 1 - Normal ?? 2 - ? 3 - Akinetic 4 - ?1-2 ? small Interpret ? Hypokinetic ?Dyskinetic ?? 3-5 ? moderate 5 - ? 6-14 ?large Aneurysmal ?15-16 ?? diffuse Procedure Note Diego Hoyos MD - 12/04/2023 [address] [id number] Echocardiogram Report Name: SERGE CABRERA Study Date: 408:27 AMBP: 180/80 mmHg Patient Location: [address] : 1940 Height: 183 cm Account: [id number] Age: 83 yrs Weight: 127 kg Gender: Male BSA: 2.5 m2 Ordering Physician: ALBERT OREILLY Referring Physician: MEI SANCHEZ Performed By: Kaden Anthony RDCS Reason For Study: Atrial fib/flutter, transient Exam Location: [facility]. Interpretation Summary -Wall thickness is moderately increased with a prominent basal septummeasuring up to 2.4cm without LVOT obstruction.Left ventricular systolic function isnormal. The left ventricular ejection fraction is 63% by Reilly's biplane. Thereare segmental wall motion abnormalities which are predominantly inferior and inferoseptal. (See attached PDF) -Right ventricle is mildly dilated. Right ventricular wall thickness ismildly increased. Right ventricular systolic function is mildly decreased. -There is moderate calcific aortic stenosis. Mean gradient 10mmHg, DI0.35, MICHAEL 1.4cm2, SVi 39ml/m2. -The aortic root is dilated. The diameter at the level of the sinuses ofValsalva is 4.4 cm. The ascending aorta is dilated. The maximum diameter of theproximal ascending aorta is 4.7 cm. Compared to the prior study in 2018 the LVEF decreased from 80% to 63%with new inferior and inferoseptal regional wall motion abnormality. There is nowmoderate aortic stenosis by visual assessment, DI, and estimated MICHAEL. Procedure Complete-31142. Image enhancement Optison was used for left ventricular opacification. Suboptimal quality. The rhythm is atrial fibrillation. Left Ventricle Left ventricle is of normal size. Wall thickness is moderately increased.There is no ventricular septal defect. Severely increased thickness of the basalseptum with no obstruction to LV outflow. Left ventricular systolic function isnormal. The left ventricular ejection fraction is 63% by Reilly's biplane. Thereare segmental wall motion abnormalities. Right Ventricle Right ventricle is mildly dilated. Right ventricular wall thickness ismildly increased. Right ventricular systolic function is mildly decreased. Left Atrium The left atrium is severely dilated. The interatrial septum is not well visualized. Right Atrium The right atrium is moderately dilated. Aortic Valve The aortic valve is probably trileaflet. The aortic valve is moderatelycalcified. There is calcification of the aortic annulus. There is moderate aorticstenosis. The peak instantaneous gradient across the aortic valve is 25.2 mmHg. Themean gradient across the aortic valve is 9.6 mmHg. The aortic valve areacalculated using the continuity equation is 1.4 cm^2. The stroke volume index is 38.9mL/m2. The dimensionless index is 0.35. The highest gradient is obtained from theright sternal border window using the imaging probe. There is trace aortic regurgitation. Mitral Valve The mitral valve is structurally and functionally normal. Leafletsappear tethered. There is mild mitral regurgitation. Tricuspid Valve The tricuspid valve is structurally and functionally normal. There istrace tricuspid regurgitation. Pulmonic Valve The pulmonic valve appears to be structurally and functionally normal.There is no pulmonic valve regurgitation. Great Arteries The aortic root is dilated. The diameter at the level of the sinuses ofValsalva is 4.4 cm. The transverse aorta is not well visualized. The ascendingaorta is dilated. The maximum diameter of the proximal ascending aorta is 4.7 cm. Venous Inferior vena cava is not well visualized. Pericardium/Pleural There is no pericardial effusion. Hemodynamics Pulmonary artery hypertension could not be assessed due to inadequatetricuspid regurgitation jet. Left ventricular filling pressure is increased. Left ventricular diastolic function is abnormal. Severity indeterminate due toatrial fibrillation. Ejection Fraction 2D Measurements Volumes LV Biplane EF: 63.2 % IVSd: 2.4 cm LA VolumeIndex: LVIDd: 4.8 cm LVPWd: 1.6 cm 54.1 ml/m2 RWT: 0.67 {ratio} RA A4Cs_phl: 32.4cm2 RA ESV Indexed: LV mass(C)d: 460.7 grams LV mass(C)dI: 187.1 grams/m2 48.7 ml/m2 Ao root diam: 4.4 cm EDV Biplane:146.0 ml Ao root diam index: 1.8 EDV BP Indexed: asc Aorta Diam: 4.7 cm 59.3 ml/m2 LVOT diam: 2.3 cm ESV Biplane: 53.8ml ESV BP Indexed: 21.9 ml/m2 SV(LVOT): 95.7ml LV Stroke Volume:95.0 ml SI(LVOT): 38.9ml/m2 Doppler LV V1 VTI: 22.9 cm LVOT max Velocity: 88.9 cm/sec Ao V2 VTI: 66.2 cm Ao Max: 250.3 cm/sec Ao valve max: 25.2 mmHg Ao valve mean: 9.6 mmHg MV E max juan alberto: 126.5 cm/sec Lat Peak E' Juan Alberto: 7.0 cm/sec E/ e' (lat): 18.2 Med Peak E' Juan Alberto: 3.0 cm/sec E/e' (med): 41.5 E/e' Average: 29.8 MICHAEL(I,D): 1.4 cm2 Dimensionless index Aov: 0.35 I WMSI = 1.31 % Normal = 69 SegmentsSize X - Cannot 1 - Normal 2 - 3 - Akinetic 4 - 1-2small Interpret Hypokinetic Dyskinetic 3-5moderate 5 - 6-14large Aneurysmal 15-16diffuse Albert Oreilly MD ECHO ORDERABLES * (ABNORMAL) Protein Electrophoresis, urine, random (12/03/2023 1:30 AM EDT) U Protein Ran 53(H) 0 - 12 mg/dL [facility] U Albumin 68 % total [facility] U Globulin 32 % total [facility] U M Band None Detected [facility] U PEP Comments See Note [facility] Comment: There is no evidence of clonal free light chains in this patient's urine sample. Urine 12/03/2023 1:30 AM EDT 12/03/2023 2:48 AM EDT Narrative Resulting Agency Comment Spec In Lab Albert Oreilly MD URINE ORDERABLES [facility] [place] [address] * (ABNORMAL) Immunoglobulins, Quantitative (12/03/2023 1:00 AM EDT) Pathologist [facility] IgG 685(L) 700 - 1,600 mg/dL [facility] Comment: Pediatric Reference Intervals obtained from the Caliper Reference Interval project. http://www.FINXI.ca/caliperproject/index.html IgA 142 70 - 400 mg/dL [facility] IgM 14(L) 40 - 230 mg/dL [facility] Blood Venous Draw / Unknown 12/03/2023 1:00 AM EDT 12/03/2023 1:17 AM EDT Narrative Resulting Agency Comment Spec In Lab Elías Duff MD CHEMISTRY ORDERABLES Performing Organization Address [facility] Co de Phone Number [facility] [place] [address] * Immunofixation Electrophoresis (12/03/2023 1:00 AM EDT) [facility] RICHARD See Note [facility] Comment: RICHARD shows no evidence of a monoclonal immunoglobulin. Dr. Miguel A Park 12/06/2023 See scanned report. Blood Venous Draw / Unknown 12/03/2023 1:00 AM EDT 12/03/2023 1:17 AM EDT Narrative Resulting Agency Comment Spec In Lab Elías Duff MD CHEMISTRY ORDERABLES Performing Organization Address [facility] Co de Phone Number [facility] [place] [address] * (ABNORMAL) BMP w/fasting Glucose (12/03/2023 1:00 AM EDT) Pathologist [facility] Glucose Fasting 134(H) 65 - 99 mg/dL [facility] Comment: ?Fasting* Glucose Interpretive Criteria Normal ?65-99 mg/dL Impaired Fasting glucose ?100-125 mg/dL Consistent with Diabetes Mellitus ? >or= 126 mg/dL *Fasting is defined as no caloric intake for at least 8 hours In the absence of unequivocal hyperglycemia a plasma glucose value of >or= 126 mg/dL should be repeated on a subsequent day. Diagnosis and Classification of Diabetes Mellitus, Position Statement from the [place] [employer]. ??Diabetes Care, Volume 33, Supplement 1, Jun 2009 BUN 35(H) 10 - 20 mg/dL [facility] Creatinine 1.86(H) 0.80 - 1.50 mg/dL [facility] Sodium 141 135 - 145 mmol/L [facility] Potassium 4.4 3.5 - 5.0 mmol/L [facility] Comment: Please note: ??Patients with WBC >100,000 may have falsely elevated Potassium levels. ??For accurate Potassium quantification in these patients send serum separator tube (gold top) for subsequent determinations. ??Contact the Clinical Chemistry Laboratory if there are any questions. Chloride 109(H) 98 - 107 mmol/L [facility] CO2 20(L) 22 - 31 mmol/L [facility] Anion Gap 12 5 - 15 mmol/L [facility] Calcium 9.8 8.5 - 10.5 mg/dL [facility] Estimated GFR 35(L) >=60 mL/min/1. 73 m?? [facility] Comment: This patient's estimated GFR was calculated using the 2020 CKD-EPI equation. The estimated GFR can vary from the measured GFR by up to 30% in the absence of rapidly changing kidney function. Assessment of the estimated GFR is not appropriate when creatinine concentrations are rapidly changing. For clinical situations in which a more precise estimate of GFR is necessary, consider alternative methods of GFR estimation such as a 24-hour urine creatinine clearance. Assignment of CKD stage 1-5 for patients with an eGFR near the transition point between stages may be based on clinical assessment of muscle mass and symptoms in addition to eGFR. Blood 12/03/2023 1:00 AM EDT 12/03/2023 1:17 AM EDT Narrative Resulting Agency Comment Spec In Lab Elías Duff MD CHEMISTRY ORDERABLES Performing Organization Address City/State/[facility] Co de Phone Number [facility] [place] [address] * (ABNORMAL) Differential, Automated (12/03/2023 1:00 AM EDT) Neutrophils % 72.9 % [facility] Neutr Abs (ANC) 3.74 1.70 - 6.10 x10(3)/[facility] Lymphocytes % 14.5 % [facility] Lymphocytes Abs 0.7(L) 0.9 - 3.2 x10(3)/[facility] Monocytes % 10.4 % [facility] Monocyte Abs 0.5 0.3 - 0.9 x10(3)/[facility] Eosinophils % 1.4 % [facility] Eosinophils Abs 0.1 0.0 - 0.4 x10(3)/[facility] Basophils % 0.4 % [facility] Basophils Abs 0.0 0.0 - 0.1 x10(3)/[facility] Immature Gran % 0.40 % [facility] Comment: Immature granulocytes(IG's)percentage and absolute count will include metamyelocytes, myelocytes, and promyelocytes. Blood smears from CBCs yielding IG's will be scanned manually for concordance. If this scan disagrees with the automated IG or if promyelocytes are noted, a manual differential will be performed. Steph Gran Abs 0.02 0.00 - 0.04 x10(3)/[facility] Blood 12/03/2023 1:00 AM EDT 12/03/2023 1:17 AM EDT Narrative Resulting Agency Comment Spec In Lab Elías Duff MD HEMATOLOGY ORDERABLE S [facility] [place] [address] * (ABNORMAL) Hemogram (12/03/2023 1:00 AM EDT) Pathologist [facility] WBC 5.1 4.0 - 9.5 x10(3)/[facility] RBC 4.49(L) 4.58 - 5.54 x10(6)/[facility] Hemoglobin 13.1(L) 13.7 - 16.5 g/dL [facility] Hematocrit 41.6 40.5 - 48.5 % [facility] MCV 92.7 82.9 - 93.1 [facility] MCH 29.2 27.5 - 32.1 pg [facility] MCHC 31.5(L) 32.0 - 35.7 g/dL [facility] Platelets 123(L) 145 - 357 x10(3)/[facility] LABORATORY RDWSD 52.5(H) 36.0 - 45.0 [facility] RDWCV 15.5(H) 11.4 - 13.8 % [facility] MPV 10.1 7.6 - 12.9 [facility] nRBC % Auto 0.0 % [facility] nRBC Abs Auto 0.000 0.000 - 0.000 x10(3)/[facility] Blood 12/03/2023 1:00 AM EDT 12/03/2023 1:17 AM EDT Narrative Resulting Agency Comment Spec In Lab Elías Duff MD HEMATOLOGY ORDERABLE S [facility] [place] [address] * Free Light Chains, Serum (12/03/2023 1:00 AM EDT) Pathologist [facility] [place] Free Light Chain 2.66 0.72 - 2.75 mg/dL [facility] Lambda Free Light Chain 2.00 0.57 - 2.15 mg/dL [facility] [place] Lambda FLC Ratio 1.3300 0.4000 - 2.5800 [facility] Blood 12/03/2023 1:00 AM EDT 12/03/2023 1:17 AM EDT Narrative Resulting Agency Comment Spec In Lab Albert Oreilly MD CHEMISTRY ORDERABL ES Performing Organization Address [facility] Co de Phone Number [facility] [place] [address] * (ABNORMAL) Protein Electrophoresis, serum (12/03/2023 1:00 AM EDT) Total Prot Elec 6.0(L) 6.1 - 8.0 g/dL [facility] Albumin Elect 4.13 3.20 - 5.20 g/dL [facility] Alpha1-Globulin 0.19 0.10 - 0.30 g/dL [facility] Alpha2-Globulin 0.60 0.40 - 0.90 g/dL [facility] Beta Globulin 0.62 0.50 - 1.00 g/dL [facility] Gamma Globulin 0.46(L) 0.50 - 1.30 g/dL [facility] M1 Band Comments Below None Detected [facility] SPEP Comments See Note [facility] Comment: 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 Immunofixation (RICHARD) and quantitative immunoglobulin (NIK) testing will be performed on this sample. Blood 12/03/2023 1:00 AM EDT 12/03/2023 1:17 AM EDT Narrative Resulting Agency Comment Spec In Lab Albert Oreilly MD CHEMISTRY ORDERABL ES Performing Organization Address [facility]/ZIP Co de Phone Number [facility] [place] [address] * Lyme IgG & IgM Antibody (12/03/2023 1:00 AM EDT) [facility] Lyme Screening Antibody Negative Negative [facility] Lyme Ab Comment Negative result does not exclude possibility of infection. [facility] Comment: Please note that as of 11/01/2022 that this testing is performed by the Special Chemistry Laboratory at [facility]. This change in testing location is associated with a change in testing methodology. Blood 12/03/2023 1:00 AM EDT 12/04/2023 7:29 AM EDT Narrative Resulting Agency Comment Spec In Lab Albert Oreilly MD IMMUNOLOGY ORDERAB LES [facility] [place] [address] * Acute Tick Borne Infection Panel (12/03/2023 1:00 AM EDT) [facility] Anaplasma phagocytophilum PCR Not Detected Not Detected [facility] Comment: INTERPRETATION: A positive result indicates DNA was detected from Anaplasma phagocytophilum. A negative result indicates the absence of any detectable DNA from Anaplasma phagocytophilum. METHODS: This test was performed using multiplex real-time PCR to interrogate DNA isolated from whole blood for the groEL gene found in Anaplasma phagocytophilum. The sensitivity of the assay is approximately 10 genome equivalents per PCR reaction. LIMITATIONS AND DISCLAIMERS: Although unlikely, rare variants (known or unknown), have the potential to interfere with the performance of this test, producing false negative or false positive results. Additionally, it is possible that this test may provide positive results for species closely related to the ones tested for in this assay. When results are not consistent with other clinical observations or test results, additional testing should be considered. This test detects DNA sequences and cannot discriminate between live and organisms. This test was developed and its performance characteristics determined by the [facility] at [facility]. It has not been cleared or approved by the FDA. The laboratory is regulated under CLIA as qualified to perform high-complexity testing. This test is used for clinical purposes. It should not be regarded as investigational or for research. Ehrlichia chaffeensis PCR Not Detected Not Detected [facility] Comment: INTERPRETATION: A positive result indicates DNA was detected from Ehrlichia chaffeensis. A negative result indicates the absence of any detectable DNA from Ehrlichia chaffeensis. METHODS: This test was performed using multiplex real-time PCR to interrogate DNA isolated from whole blood for the 16S rRNA gene found in Ehrlichia chaffeensis. The sensitivity of the assay is approximately 10 genome equivalents per PCR reaction. LIMITATIONS AND DISCLAIMERS: Although unlikely, rare variants (known or unknown), have the potential to interfere with the performance of this test, producing false negative or false positive results. Additionally, it is possible that this test may provide positive results for species closely related to the ones tested for in this assay. When results are not consistent with other clinical observations or test results, additional testing should be considered. This test detects DNA sequences and cannot discriminate between live and organisms. This test was developed and its performance characteristics determined by the [employer] at [facility] [place]. It has not been cleared or approved by the FDA. The laboratory is regulated under CLIA as qualified to perform high-complexity testing. This test is used for clinical purposes. It should not be regarded as investigational or for research. Babesia microti PCR Not Detected Not Detected [facility] Comment: INTERPRETATION: A positive result indicates DNA was detected from Babesia microti. A negative result indicates the absence of any detectable DNA from Babesia microti. METHODS: This test was performed using multiplex real-time PCR to interrogate DNA isolated from whole blood for the 18S rRNA gene found in Babesia microti. The sensitivity of the assay is approximately 10 genome equivalents per PCR reaction. LIMITATIONS AND DISCLAIMERS: Although unlikely, rare variants (known or unknown), have the potential to interfere with the performance of this test, producing false negative or false positive results. Additionally, it is possible that this test may provide positive results for species closely related to the ones tested for in this assay. When results are not consistent with other clinical observations or test results, additional testing should be considered. This test detects DNA sequences and cannot discriminate between live and organisms. This test was developed and its performance characteristics determined by the [employer] [facility] at [facility] [place]. It has not been cleared or approved by the FDA. The laboratory is regulated under CLIA as qualified to perform high-complexity testing. This test is used for clinical purposes. It should not be regarded as investigational or for research. Borrelia miyamotoi PCR Not Detected Not Detected [facility] Comment: INTERPRETATION: A positive result indicates DNA was detected from Borrelia miyamotoi. A negative result indicates the absence of any detectable DNA from Borrelia miyamotoi. METHODS: This test was performed using multiplex real-time PCR to interrogate DNA isolated from whole blood for the flaB gene found in Borrelia miyamotoi. The sensitivity of the assay is approximately 10 genome equivalents per PCR reaction. LIMITATIONS AND DISCLAIMERS: Although unlikely, rare variants (known or unknown), have the potential to interfere with the performance of this test, producing false negative or false positive results. Additionally, it is possible that this test may provide positive results for species closely related to the ones tested for in this assay. When results are not consistent with other clinical observations or test results, additional testing should be considered. This test detects DNA sequences and cannot discriminate between live and organisms. This test was developed and its performance characteristics determined by the [facility] at [facility] [place]. It has not been cleared or approved by the FDA. The laboratory is regulated under CLIA as qualified to perform high-complexity testing. This test is used for clinical purposes. It should not be regarded as investigational or for research. Blood 12/03/2023 1:00 AM EDT 12/03/2023 9:01 AM EDT Narrative Resulting Agency Comment Spec In Lab Albert Oreilly MD HEMATOLOGY ORDERAB LES [facility] [place] [address] * Triglyceride (12/03/2023 1:00 AM EDT) Triglycerides 154 mg/dL [facility] Comment: Normal: ?<150 mg/dL Borderline High: 150-199 mg/dL High: ?200-499 mg/dL Very High: ? >gi=776 mg/dL Blood 12/03/2023 1:00 AM EDT 12/03/2023 1:17 AM EDT Narrative Resulting Agency Comment Spec In Lab Albert Oreilly MD CHEMISTRY ORDERABL ES [facility] [place] [address] * HDL/Cholesterol Profile (12/03/2023 1:00 AM EDT) Chol, Total 78 mg/dL [facility] Comment: Desirable: ? <200 mg/dL Borderline High: 200-239 mg/dL Higher: ?>le=530 mg/dL HDL 34 mg/dL [facility] Comment: Females: High Risk: <50 mg/dL Males: High Risk: <40 mg/dL Lipid Interpretation See Note [facility] Comment: It is important to review the results of your lipid panel with your health care provider. You can compare your lipid results to the ranges below and whether they are in the desirable range. These ranges are only meant to be used for people without known cardiac disease, history of stroke, or peripheral vascular disease (blockages in the leg arteries or diabetes). If ??you have one of these conditions, your desirable LDL-C (bad cholesterol) will likely be even lower. ACC/AHA Guidelines (most recently Tiago et al. [facility] 03/29/22): For individuals with atherosclerotic cardiovascular disease (ASCVD)or LDL >hd=777 mg/dL, use a high-intensity statin (40-80 mg atorvastatin or 20-40 mg rosuvastatin with goal >or=50% LDL reduction) For individuals with diabetes, age 40-75 without ASCVD, moderate-intensity statin (goal 30-49% LDL reduction); consider high intensity statin for those with increased risk. For adults without diabetes or ASCVD, aged 40-75 with LDL 70-189 mg/dL, estimate 10 year ASCVD risk with smartphrase .ASCVDRISK or Dynamed Decisions. If 10 year risk is 7.5%-19.9% (intermediate risk), consider moderate intensity statin based on risk enhancers and patient preference. Consider coronary artery calcium test (CT) if there is concern regarding the benefit of a statin. If ten year risk is >or=20%, initiate high-intensity statin. Evaluate for secondary causes of triglycerides >500 mg/dL or LDL >190 mg/dL. Lifestyle modification is a critical component of ASCVD risk reduction. If not reaching LDL goals on maximally tolerated statin, consider ezetimibe and/or a PCSK9 inhibitor: Target for primary prevention: LDL<100 Target for those with ASCVD or diabetes and 10-year risk >or=20%: LDL<70 Target for those with very high risk ASCVD: LDL<55 (Very high risk being the presence of 2 or more of: recent acute coronary syndrome, past myocardial infarction, ischemic stroke, symptomatic peripheral artery disease) Blood 12/03/2023 1:00 AM EDT 12/03/2023 1:17 AM EDT Narrative Resulting Agency Comment Spec In Lab Albert Oreilly MD CHEMISTRY ORDERABL ES [facility] [place] [id number] * LDL Cholesterol, Direct (12/03/2023 1:00 AM EDT) LDL Chol Direct 29 mg/dL [facility] Comment: Desirable: ? <100 mg/dL Above Desirable: 100-129 mg/dL Borderline High: 130-159 mg/dL High: ?160-189 mg/dL Very High: ? >rp=732 mg/dL If not reaching LDL goals on maximally tolerated statin, consider exetimibe and/or a PCSK9 inhibitor: ?? Target for primary prevention: LDL<100 ?? Target for those with ASCVD or diabetes and 19-year risk >or=20%: LDL<70 ?? Target for those with very high risk ASCVD: LDL<55 (Very high risk being the presence of 2 or more of: recent acute coronary syndrome, past myocardial infarction, ischemic stroke, symptomatic perpheral artery disease). Blood 12/03/2023 1:00 AM EDT 12/03/2023 1:17 AM EDT Narrative Resulting Agency Comment Spec In Lab Albert Oreilly MD CHEMISTRY ORDERABL ES Performing Organization Address [facility] Co de Phone Number [facility] [place] [address] * (ABNORMAL) Hemoglobin A1c (12/03/2023 1:00 AM EDT) Hemoglobin A1C 6.5(H) 4.3 - 5.6 % [facility] Comment: Reference Range: 4.3 - 5.6% 5.7 - 6.4% - Increased Risk of Developing Diabetes Mellitus >= 6.5% - Consistent with diagnosis of Diabetes Mellitus In the absence of hyperglycemia (i.e. plasma glucose > 200 mg/dL) or classic symptoms of hyperglycemia a repeat measurement of HbA1c should be performed on a separate sample to confirm the diagnosis. Diagnosis and Classification of Diabetes Mellitus, Diabetes Care 2013; 36: Suppl. 1, S67-74 Est Avg Gluc See note mg/dL [facility] Comment: Estimated Average Glucose not appropriate for patients over 70 years of age. Blood 12/03/2023 1:00 AM EDT 12/03/2023 1:17 AM EDT Narrative Resulting Agency Comment Spec In Lab Albert Oreilly MD CHEMISTRY ORDERABL ES Performing Organization Address [facility] Co de Phone Number [facility] [place] [address] * APTT (12/03/2023 1:00 AM EDT) PTT 31 25 - 37 sec [facility] Comment: The PTT is NOT appropriate for heparin monitoring. Use the Anti-Xa level for heparin monitoring (HEP UFH) or LMWH monitoring (HEP LMW). A PTT less than 37 seconds generally indicates adequate hemostasis. Blood 12/03/2023 1:00 AM EDT 12/03/2023 1:17 AM EDT Narrative Resulting Agency Comment Spec In Lab Albert Oreilly MD HEMATOLOGY ORDERAB LES Performing Organization Address [facility]/ZIP Co de Phone Number [facility] [place] [address] * (ABNORMAL) Prothrombin Time (12/03/2023 1:00 AM EDT) PT 14.7(H) 9.4 - 12.5 sec [facility] INR 1.3 [facility] Comment: An INR <2.0 indicates adequate procoagulant activity for hemostasis in most patients without underlying bleeding disorders, though the INR may not adequately reflect hemostatic capacity in patients with liver disease and synthetic impairment. The recommended target INR range for therapeutic anticoagulation is 2.0 ? 3.0 for most applications, though lower and higher ranges may be appropriate depending on clinical circumstances. Blood 12/03/2023 1:00 AM EDT 12/03/2023 1:17 AM EDT Narrative Resulting Agency Comment Spec In Lab Albert Oreilly MD HEMATOLOGY ORDERAB LES Performing Organization Address [facility] Co de Phone Number [facility] [place] [address] * Hepatic Function Panel (12/03/2023 1:00 AM EDT) Total Protein 6.1 6.1 - 8.0 g/dL [facility] Albumin 4.0 3.2 - 5.2 g/dL [facility] AST 14 0 - 39 unit/L [facility] ALT 15 0 - 55 unit/L [facility] Alk Phos 70 40 - 130 unit/L [facility] Total Bilirubin 0.8 0.2 - 1.3 mg/dL [facility] Bili, Direct 0.3 0.0 - 0.3 mg/dL [facility] Blood 12/03/2023 1:00 AM EDT 12/03/2023 1:17 AM EDT Narrative Resulting Agency Comment Spec In Lab Albert Oreilly MD CHEMISTRY ORDERABL ES Performing Organization Address [facility] Co de Phone Number [facility] [place] [address] * (ABNORMAL) pro-Brain Natriuretic Peptide (12/03/2023 1:00 AM EDT) ProBNP 4,344(H) <=449 pg/mL [facility] Blood 12/03/2023 1:00 AM EDT 12/03/2023 1:17 AM EDT Narrative Resulting Agency Comment Spec In Lab Albert Oreilly MD CHEMISTRY ORDERABL ES Performing Organization Address [facility] de Phone Number [facility] [place] [address] * TSH (12/03/2023 1:00 AM EDT) TSH 1.29 0.27 - 4.20 mcIU/mL [facility] Comment: Reference Interval (mcIU/mL): Females: ??First Trimester: 0.23-3.88 ??Second Trimester: 0.22-3.90 ??Third Trimester: 0.44-4.66 Blood 12/03/2023 1:00 AM EDT 12/03/2023 1:17 AM EDT Narrative Resulting Agency Comment Spec In Lab Albert Oreilly MD CHEMISTRY ORDERABL ES Performing Organization Address [facility] Co de Phone Number [facility] [place] [address] * Phosphorus (12/03/2023 1:00 AM EDT) Phosphorus 3.1 2.5 - 4.5 mg/dL [facility] Blood 12/03/2023 1:00 AM EDT 12/03/2023 1:17 AM EDT Narrative Resulting Agency Comment Spec In Lab Albert Oreilly MD CHEMISTRY ORDERABL ES [facility] [place] [address] * Magnesium (12/03/2023 1:00 AM EDT) Magnesium 0.92 0.69 - 1.07 mmol/L [facility] Blood 12/03/2023 1:00 AM EDT 12/03/2023 1:17 AM EDT Narrative Resulting Agency Comment Spec In Lab Albert Oreilly MD CHEMISTRY ORDERABL ES Performing Organization Address [facility] Co de Phone Number [facility] [place] [address] documented in this encounter Visit Diagnoses Diagnosis Atrial fib/flutter, transient- Primary Atrial fibrillation Atrial fib/flutter, transient Atrial fibrillation documented in this encounter Admitting Diagnoses Diagnosis Atrial fib/flutter, transient Atrial fibrillation documented in this encounter Administered Medications Inactive Administered Medications - up to 3 most recent administrations Medication Order MAR Action Action Date Dose Rate Site acetaminophen (Ofirmev) (1,000 mg/100 mL) infusion 1,000 mg 1,000 mg, Intravenous, at 400 mL/hr, Administer over 15 Minutes, ONCE, 1 dose, On Mon12/05/23 at 1830, Maximum dose of acetaminophen is 4,000 mg from all sources in 24 hours. When ordered for pain, acetaminophen should be given even when other ordered pain medications are indicated., PACU Recovery, Routine, Is ketorolac (Toradol) IV contraindicated? Yes, Can this patient tolerate oral medications or suppositories? No Given 12/05/2023 6:27 PM EDT 1,000 mg 400 mL/hr acetaminophen (Tylenol) tablet 650 mg 650 mg, Oral, EVERY 4 HOURS PRN, Starting on Mon12/05/23 at 1810, Until Mon12/06/23 at 1640, Pain, Fever, Mild-moderate pain (1-6), Maximum dose of acetaminophen is 4,000 mg from all sources in 24 hours. When ordered for pain, acetaminophen should be given even when other ordered pain medications are indicated., Recovery (Recovery-Hospital Unit), Routine aspirin EC tablet 81 mg 81 mg, Oral, DAILY, First dose on Mon12/03/23 at 0900, Until Discontinued, Routine Given 12/06/2023 8:12 AM EDT 81 mg Given 12/05/2023 8:34 AM EDT 81 mg Given 12/04/2023 8:05 AM EDT 81 mg BUpivacaine (pf) (Marcaine) (5 mg/mL) 0.5% injection 150 mg 150 mg (30 mL), Subcutaneous, ONCE, 1 dose, On Mon12/05/23 at 1615, EP (Intra-Procedure), Routine Given 12/05/2023 3:39 PM EDT 150 mg dextromethorphan-guaiFENesin (Robitussin DM) (2 mg-20 mg/mL) oral liquid 5 mL 5 mL, Oral, EVERY 4 HOURS PRN, Starting on Mon12/03/23 at 1256, Until Mon12/06/23 at 1640, Cough, Routine Given 12/04/2023 12:24 PM EDT 5 mLs Given 12/03/2023 9:12 PM EDT 5 mLs Given 12/03/2023 1:43 PM EDT 5 mLs enoxaparin (Lovenox) (40 mg/0.4 mL) subcutaneous injection 40 mg 40 mg, Subcutaneous, NIGHTLY, First dose on Mon12/03/23 at 2100, Until Discontinued, Routine Given 12/03/2023 9:09 PM EDT 40 mg furosemide (Lasix) tablet 40 mg 40 mg, Oral, DAILY, First dose on Mon12/03/23 at 0900, Until Discontinued, Routine Given 12/05/2023 8:35 AM EDT 40 mg Given 12/04/2023 8:04 AM EDT 40 mg Given 12/03/2023 8:36 AM EDT 40 mg guaiFENesin ER (Mucinex) tablet 1,200 mg 1,200 mg, Oral, EVERY 12 HOURS, First dose on Mon12/03/23 at 0015, Until Discontinued, DO NOT CRUSH OR OPEN, Routine Given 12/03/2023 12:57 AM EDT 1,200 mg lidocaine (Xylocaine) (20 mg/mL) 2% injection 400 mg 400 mg (20 mL), Subcutaneous, ONCE, 1 dose, On Mon12/05/23 at 1615, EP (Intra-Procedure), Routine Given 12/05/2023 3:39 PM EDT 400 mg losartan (Cozaar) tablet 100 mg 100 mg, Oral, DAILY, First dose (after last modification) on Mon12/03/23 at 0900, Until Discontinued, Please hold for SBP < 110, Routine Given 12/06/2023 8:12 AM EDT 100 mg Given 12/05/2023 8:36 AM EDT 100 mg Given 12/04/2023 8:05 AM EDT 100 mg magnesium sulfate 1 g in dextrose 5% 100 mL infusion 1 g, Intravenous, ONCE, 1 dose, On Mon12/03/23 at 1800, Administer over 60 Minutes New Bag 12/03/2023 6:02 PM EDT 1 g 100 mL/hr magnesium sulfate 2 g in sterile water 50 mL infusion 2 g, Intravenous, ONCE, 1 dose, On Mon12/05/23 at 0345, Administer over 120 Minutes New Bag 12/05/2023 3:51 AM EDT 2 g 25 mL/hr magnesium sulfate 2 g in sterile water 50 mL infusion 2 g, Intravenous, ONCE, 1 dose, On Mon12/06/23 at 0600, Administer over 120 Minutes New Bag 12/06/2023 7:32 AM EDT 2 g 25 mL/hr pantoprazole EC (Protonix) tablet 40 mg 40 mg, Oral, DAILY, First dose on Mon12/03/23 at 0900, Until Discontinued Given 12/06/2023 8:12 AM EDT 40 mg Given 12/05/2023 8:35 AM EDT 40 mg Given 12/04/2023 8:05 AM EDT 40 mg perflutren protein-A microsphers (Optison) (0.22 mg/mL) injection 3 mL 3 mL, Intravenous, ONCE PRN, 1 dose, Starting on Mon12/04/23 at 0932, Until Mon12/04/23 at 0932, prn, Routine Given 12/04/2023 9:32 AM EDT 3 mLs polyethylene glycoL (Miralax) packet 17 g 17 g, Oral, DAILY, First dose on Mon12/04/23 at 1430, Until Discontinued, Routine Given 12/04/2023 1:49 PM EDT 17 g polyethylene glycoL (Miralax) packet 17 g 17 g, Oral, DAILY PRN, Starting on Mon12/04/23 at 1438, Until Mon12/06/23 at 1640, Constipation, Routine rosuvastatin (Crestor) tablet 20 mg 20 mg, Oral, DAILY, First dose on Mon12/03/23 at 0900, Until Discontinued, Routine Given 12/06/2023 8:11 AM EDT 20 mg Given 12/05/2023 8:35 AM EDT 20 mg Given 12/04/2023 8:04 AM EDT 20 mg senna-docusate (Pericolace) 8.6-50 mg per tablet 2 tablet 2 tablet, Oral, DAILY, First dose on Mon12/04/23 at 1430, Until Discontinued, Routine Given 12/04/2023 1:49 PM EDT 2 tablets sodium chloride 0.9 % (flush) (BD PosiFlush Normal Saline 0.9) flush 5 mL 5 mL, Intravenous, 2 TIMES DAILY, First dose on Mon12/03/23 at 0015, Until Discontinued, Routine Given 12/06/2023 9:00 AM EDT 5 mLs Given 12/05/2023 9:00 PM EDT 5 mLs Given 12/05/2023 9:00 AM EDT 5 mLs tamsulosin (Flomax) capsule 0.4 mg 0.4 mg, Oral, DAILY, First dose on Mon12/03/23 at 0900, Until Discontinued, DO NOT CRUSH OR CHEW, Routine Given 12/05/2023 8:34 AM EDT 0.4 mg Given 12/04/2023 8:05 AM EDT 0.4 mg Given 12/03/2023 8:36 AM EDT 0.4 mg tamsulosin (Flomax) capsule 0.8 mg 0.8 mg, Oral, DAILY, First dose (after last modification) on Mon12/06/23 at 0900, Until Discontinued, DO NOT CRUSH OR CHEW, Routine Given 12/06/2023 8:13 AM EDT 0.8 mg documented in this encounter Active and Recently Administered Medications Times are shown in EDT. Scheduled Medication Order 12/04/2023 12/05/2023 12/06/2023 acetaminophen (Ofirmev) (1,000 mg/100 mL) infusion 1,000 mg (COMPLETED) 1,000 mg, Intravenous, at 400 mL/hr, Administer over 15 Minutes, ONCE, 1 dose, On Mon12/05/23 at 1830, Maximum dose of acetaminophen is 4,000 mg from all sources in 24 hours. When ordered for pain, acetaminophen should be given even when other ordered pain medications are indicated., PACU Recovery, Routine, Is ketorolac (Toradol) IV contraindicated? Yes, Can this patient tolerate oral medications or suppositories? No 1827 (Given - Provider: Maddie Hernandez, LENY) aspirin EC tablet 81 mg 81 mg, Oral, DAILY, First dose on Mon12/03/23 at 0900, Until Discontinued, Routine 0805 (Given - Provider: Niki Coronado, RN) 0834 (Given - Provider: Keron Humphrey, LENY)1513 (AUG Hold - Provider: Admin Adt - Reason: Transfer to a Procedural area)1957 (AUG Unhold - Provider: Admin Adt) 0812 (Given - Provider: Keron Humphrey RN) BUpivacaine (pf) (Marcaine) (5 mg/mL) 0.5% injection 150 mg (COMPLETED) 150 mg (30 mL), Subcutaneous, ONCE, 1 dose, On Mon12/05/23 at 1615, EP (Intra-Procedure), Routine 1539 (Given - Provider: Fabio Pringle MD) furosemide (Lasix) tablet 40 mg 40 mg, Oral, DAILY, First dose on Mon12/03/23 at 0900, Until Discontinued, Routine 0804 (Given - Provider: Niki Coronado RN) 0835 (Given - Provider: Keron Humphrey, LENY)151 (AUG Hold - Provider: Admin Adt - Reason: Transfer to a Procedural area)1957 (AUG Unhold - Provider: Admin Adt) 0900 (Not Given - Provider: Keron Humphrey RN - Reason: Patient/family refused) lidocaine (Xylocaine) (20 mg/mL) 2% injection 400 mg (COMPLETED) 400 mg (20 mL), Subcutaneous, ONCE, 1 dose, On Mon12/05/23 at 1615, EP (Intra-Procedure), Routine 1539 (Given - Provider: Fabio Pringle MD) losartan (Cozaar) tablet 100 mg 100 mg, Oral, DAILY, First dose (after last modification) on 12/03/23 at 0900, Until Discontinued, Please hold for SBP < 110, Routine 0805 (Given - Provider: Niki Coronado RN) 0836 (Given - Provider: Keron Humphrey, LENY)1513 (AUG Hold - Provider: Admin Adt - Reason: Transfer to a Procedural area)1957 (AUG Unhold - Provider: Admin Adt) 0812 (Given - Provider: Keron Humphrey RN) magnesium sulfate 2 g in sterile water 50 mL infusion (COMPLETED) 2 g, Intravenous, ONCE, 1 dose, On Mon12/05/23 at 0345, Administer over 120 Minutes 0351 (New Bag - Provider: Elma Adams RN)0551 (Stopped - Provider: Elma Adams RN) magnesium sulfate 2 g in sterile water 50 mL infusion (COMPLETED) 2 g, Intravenous, ONCE, 1 dose, On Mon12/06/23 at 0600, Administer over 120 Minutes 0732 (New Bag - Provider: Keron Humphrey RN)0932 (Stopped - Provider: Keron Humphrey RN) pantoprazole EC (Protonix) tablet 40 mg 40 mg, Oral, DAILY, First dose on Mon12/03/23 at 0900, Until Discontinued 0805 (Given - Provider: Niki Coronado RN) 0835 (Given - Provider: Keron Humphrey, LENY)1513 (AUG Hold - Provider: Admin Adt - Reason: Transfer to a Procedural area)1957 (AUG Unhold - Provider: Admin Adt) 0812 (Given - Provider: Keron Humphrey, LENY) polyethylene glycoL (Miralax) packet 17 g 17 g, Oral, DAILY, First dose on Mon12/04/23 at 1430, Until Discontinued, Routine 1349 (Given - Provider: Niki Coronado, LENY) 0900 (Not Given - Provider: Keron Humphrey RN - Reason: Patient/family refused)151 (AUG Hold - Provider: Admin Adt - Reason: Transfer to a Procedural area)1957 (AUG Unhold - Provider: Admin Adt) 0900 (Not Given - Provider: Keron Humphrey RN - Reason: Patient/family refused) rosuvastatin (Crestor) tablet 20 mg 20 mg, Oral, DAILY, First dose on 12/03/23 at 0900, Until Discontinued, Routine 0804 (Given - Provider: Niki Coronado RN) 0835 (Given - Provider: Keron Humphrey, LENY)1513 ([facility] Hold - Provider: Admin Adt - Reason: Transfer to a Procedural area)1957 ([facility] Unhold - Provider: Admin Adt) 0811 (Given - Provider: Keron Humphrey, LENY) senna-docusate (Pericolace) 8.6-50 mg per tablet 2 tablet 2 tablet, Oral, DAILY, First dose on Mon12/04/23 at 1430, Until Discontinued, Routine 1349 (Given - Provider: Niki Coronado RN) 0836 (Not Given - Provider: Keron Humphrey RN - Reason: Patient/family refused)151 ([facility] Hold - Provider: Admin Adt - Reason: Transfer to a Procedural area)1957 ([facility] Unhold - Provider: Admin Adt) 0900 (Not Given - Provider: Keron Humphrey RN - Reason: Patient/family refused) sodium chloride 0.9 % (flush) (BD PosiFlush Normal Saline 0.9) flush 5 mL 5 mL, Intravenous, 2 TIMES DAILY, First dose on Mon12/03/23 at 0015, Until Discontinued, Routine 0805 (Given - Provider: Niki Coronado RN)2047 (Given - Provider: Elma Adams, LENY) 0900 (Given - Provider: Keron Humphrey, LENY)1513 ([facility] Hold - Provider: Admin Adt - Reason: Transfer to a Procedural area)1957 ([facility] Unhold - Provider: Admin Adt)2100 (Given - Provider: Elma Adams RN) 0900 (Given - Provider: Keron Humphrey, LENY) tamsulosin (Flomax) capsule 0.4 mg (CANCELED) 0.4 mg, Oral, DAILY, First dose on 12/03/23 at 0900, Until Discontinued, DO NOT CRUSH OR CHEW, Routine 0805 (Given - Provider: Niki Coronado RN) 0834 (Given - Provider: Keron Humphrey, LENY) tamsulosin (Flomax) capsule 0.8 mg 0.8 mg, Oral, DAILY, First dose (after last modification) on Mon12/06/23 at 0900, Until Discontinued, DO NOT CRUSH OR CHEW, Routine 1513 ([facility] Hold - Provider: Admin Adt - Reason: Transfer to a Procedural area)1957 ([facility] Unhold - Provider: Admin Adt) 0813 (Given - Provider: Keron Humphrey, LENY) PRN Medication Order 12/04/2023 12/05/2023 12/06/2023 acetaminophen (Tylenol) tablet 650 mg 650 mg, Oral, EVERY 4 HOURS PRN, Starting on Mon12/05/23 at 1810, Until Mon12/06/23 at 1640, Pain, Fever, Mild-moderate pain (1-6), Maximum dose of acetaminophen is 4,000 mg from all sources in 24 hours. When ordered for pain, acetaminophen should be given even when other ordered pain medications are indicated., Recovery (Recovery-Hospital Unit), Routine dextromethorphan-guaiFENesi n (Robitussin DM) (2 mg-20 mg/mL) oral liquid 5 mL 5 mL, Oral, EVERY 4 HOURS PRN, Starting on Mon12/03/23 at 1256, Until Mon12/06/23 at 1640, Cough, Routine 1224 (Given - Provider: Niki Coronado, LENY) 151 ([facility] Hold - Provider: Admin Adt - Reason: Transfer to a Procedural area)1957 ([facility] Unhold - Provider: Admin Adt) lidocaine (Xylocaine) 1% (10 mg/mL) injection 3 mg 3 mg (0.3 mL), Subcutaneous, ONCE PRN, 1 dose, Starting on 12/02/23 at 2323, Until Mon12/06/23 at 1640, for discomfort with PIV insertion, Routine 1513 ([facility] Hold - Provider: Admin Adt - Reason: Transfer to a Procedural area)1957 ([facility] Unhold - Provider: Admin Adt) perflutren protein-A microsphers (Optison) (0.22 mg/mL) injection 3 mL (COMPLETED) 3 mL, Intravenous, ONCE PRN, 1 dose, Starting on Mon12/04/23 at 0932, Until Mon12/04/23 at 0932, prn, Routine 0932 (Given - Provider: Kaden Anthony) polyethylene glycoL (Miralax) packet 17 g 17 g, Oral, DAILY PRN, Starting on Mon12/04/23 at 1438, Until Mon12/06/23 at 1640, Constipation, Routine 1513 ([facility] Hold - Provider: Admin Adt - Reason: Transfer to a Procedural area)1957 ([facility] Unhold - Provider: Admin Adt) sodium chloride 0.9 % (flush) (BD PosiFlush Normal Saline 0.9) flush 5-20 mL 5-20 mL, Intravenous, EVERY 1 MIN PRN, Starting on 12/02/23 at 2323, Until Mon12/06/23 at 1640, flush, Flush pertains to all indwelling lines. Flush per protocol found in the job aid using the link provided on this medication record., Routine 1513 ([facility] Hold - Provider: Admin Adt - Reason: Transfer to a Procedural area)1957 ([facility] Unhold - Provider: Admin Adt) documented in this encounter Care Teams Regulatory Assistant Relationship Specialty Start Date End Date Devorah Epstein MD [address] [place] [address] PCP - General Family Medicine 09/01/17 documented as of this encounter
--- OUTSIDE RECORDS SUMMARY | 2024-01-22 03:00 | XMS_ITS | Clinical Summary ---
Author Organization [facility] Address [facility] [place] [address] Care Team Providers Care Medical Field Representative Name Role Phone Devorah Epstein MD Primary Care Provider [phone] Allergies Active Allergy Reactions Criticality Noted Date Comments Fentanyl Nausea And Vomiting 12/03/2023 Levofloxacin Shortness Of Breath High 12/03/2023 Medications Medication Sig Dispensed Refills Start Date End Date Status omeprazole (PRILOSEC) 20 mg Capsule, Delayed Release(E.C.) Take 20 mg by mouth daily. Active aspirin 81 mg Tablet, Delayed Release (E.C.) Take 81 mg by mouth daily. Active rosuvastatin (CRESTOR) 20 mg Tablet Take 20 mg by mouth daily. Active tamsulosin (Flomax) 0.4 mg capsule Take 2 capsules by mouth daily. 90 tablet 3 12/06/2023 Active senna-docusate (Pericolace) 8.6-50 mg Tablet Take 2 tablets by mouth daily. 60 tablet 11 12/06/2023 Active polyethylene glycoL (Miralax) 17 gram oral powder packet Take 17 g by mouth daily as needed. 14 each 12/06/2023 Active losartan (Cozaar) 100 mg tablet Take 1 tablet by mouth daily. 90 tablet 3 12/06/2023 Active furosemide (Lasix) 40 mg tablet Take 1 tablet by mouth daily. 30 tablet 3 12/06/2023 Active acetaminophen (Tylenol) 500 mg tablet Take 2 tablets by mouth every 6 hours as needed for Pain. 30 tablet 1 12/06/2023 Active metoprolol succinate XL (Toprol-XL) 25 mg ER 24 hr tablet Take 1 tablet by mouth daily. 30 tablet 3 12/06/2023 Active Active Problems Problem Noted Date Diagnosed Date Atrial fib/flutter, transient 12/02/2023 Pericardial effusion 11/30/2017 Atherosclerosis of [place] co ronary artery of [place] heart with angina pectoris 09/01/2017 Encounters Date Type Department Care Team Description 12/12/2023 Notes Only Cardiology at [place] [phone] Jovanna Eduardo RN Post Procedure Call (/) 12/06/2023 Notes Only Cardiology at [address] [phone] Carli Foote (Implanted Cardiac Device Education) 12/05/2023 3:04 PM EDT Anesthesia Event Electrophysiology Lab at [place] [phone] Drake [place] MD Milone, Connor B, MD 12/05/2023 3:00 PM EDT - 12/05/2023 5:00 PM EDT Surgery [place] [phone] Heriberto Geronimo MD ELECTROPHYSIOLOGY PROCEDURE 12/02/2023 10:47 PM EDT - 12/06/2023 2:40 PM EDT Hospital Encounter Heart and Vascular Unit Level [address] [place] [phone] Albert Oreilly MD Atrial fib/flutter, transient Discharge Disposition: Home 12/02/2023 Telephone Cardiology at [address] [phone] Sarah Madrid MD 12/02/2023 External [place] [address] from Last 3 Months Social History Tobacco Use Types Packs/Day Years Used Date Smoking Tobacco: Former Smokeless Tobacco: Never Alcohol Use Standard Drinks/Week Comments No 0 (1 standard drink = 0.6 oz pur e alcohol) [facility] Utilities Answer Date Recorded In [...] any time in the past 12 m [facility], were you homeless or living in a usp (including now)? No 12/04/2023 DH IPV Inpatient [...] Mass Index 37.38 12/02/2023 11:00 PM EDT Plan of Treatment Upcoming Encounters Date Type Department Care Team (Late st Contact Info) Description 03/28/2024 10:00 AM EDT Hospital Encounter [place] [phone] Arrived Health Maintenance Due Date Last Done Comments Tdap adult 1959 Tetanus vaccine 1959 Zoster vaccine (1 of 2) 1990 Pneumoccocal Vaccine: 65+ (1 of 1 - PCV) 2005 Covid-19 Vaccine (1 - 2022- season) 2023 Influenza (Flu) vaccine (1 o f 1 - Influenza standard series) 02/25/2024 Medical Devices Implanted Type Area Varnisher [employer] Device Identifier Shelf Expiration Date Model / Serial / Lot Cable,Cut,Edg ,Blnt,Ss,3tpr ([id number]) - [id number] Implanted:Qty : 4 on 09/11/2017 by Pablo Govea MD at [facility] IMPLANTS Midline: [employer] - [id number] 04/12/2022 [id number] / / [id number] Mdt Micra-12/05/19 Implanted:04/2024 by Heriberto Geronimo MD (Quantity not on file) Pacemaker Chest Wall [employer]tronic - [id number] / [id number] / Procedures Procedure Name Priority Date/Time Associated Diagnosis Comments SCAN DOC: TELEMETRY STRIPS 12/06/2023 8:02 AM EDT XR CHEST PA AND LATERAL Routine 12/06/19 6:59 AM EDT SCAN DOC: TELEMETRY STRIPS 12/06/2023 3:42 AM EDT HC HEMOGRAM Routine 12/06/2023 1:53 AM EDT HC PHOSPHORUS, SERUM Routine 12/06/2023 1:53 AM EDT HC MAGNESIUM, SERUM Routine 12/06/2023 1 :53 AM EDT BASIC METABOLIC PANEL (NON-FASTING) Routine 12/06/2023 1:53 AM EDT SCAN DOC: TELEMETRY STRIPS 12/05/2023 10:39 PM EDT ELECTROPHYSIOLOGY PROCEDURE Routine 12/05/2023 3:14 PM EDT SCAN DOC: TELEMETRY STRIPS 12/05/2023 8:24 AM EDT HC HEMOGRAM Routine 12/05/2023 3:32 AM EDT HC PHOSPHORUS, SERUM Routine 12/05/2023 3:32 AM EDT HC MAGNESIUM, SERUM Routine 12/05/2023 3 :32 AM EDT BASIC METABOLIC PANEL (NON-FASTING) Routine 12/05/2023 3:32 AM EDT SCAN DOC: TELEMETRY STRIPS 12/05/2023 3:08 AM EDT SCAN DOC: TELEMETRY STRIPS 12/05/2023 12:29 AM EDT SCAN DOC: TELEMETRY STRIPS 12/04/2023 9:04 PM EDT SCAN DOC: TELEMETRY STRIPS 12/04/2023 7:40 PM EDT SCAN DOC: TELEMETRY STRIPS 12/04/2023 6:38 PM EDT SCAN DOC: TELEMETRY STRIPS 12/04/2023 6:29 PM EDT HC PHOSPHORUS, SERUM Routine 12/04/2023 9:42 AM EDT HC MAGNESIUM, SERUM Routine 12/04/2023 9 :42 AM EDT BASIC METABOLIC PANEL (NON-FASTING) Routine 12/04/2023 9:42 AM EDT ECHO COMPLETE W CONTRAST Routine 024 9:31 AM EDT Atrial fib/flutter, transient SCAN DOC: TELEMETRY STRIPS 12/04/2023 8:37 AM EDT SCAN DOC: TELEMETRY STRIPS 12/04/2023 8:36 AM EDT SCAN DOC: TELEMETRY STRIPS 12/04/2023 7:30 AM EDT SCAN DOC: TELEMETRY STRIPS 12/04/2023 7:17 AM EDT SCAN DOC: TELEMETRY STRIPS 12/04/2023 4:50 AM EDT SCAN DOC: TELEMETRY STRIPS 12/03/2023 10:12 PM EDT SCAN DOC: TELEMETRY STRIPS 12/03/2023 10:12 PM EDT SCAN DOC: TELEMETRY STRIPS 12/03/2023 8:03 PM EDT SCAN DOC: TELEMETRY STRIPS 12/03/2023 4:23 PM EDT SCAN DOC: TELEMETRY STRIPS 12/03/2023 7:41 AM EDT SCAN DOC: TELEMETRY STRIPS 12/03/2023 7:38 AM EDT SCAN DOC: TELEMETRY STRIPS 12/03/2023 6:46 AM EDT SCAN DOC: TELEMETRY STRIPS 12/03/2023 6:07 AM EDT SCAN DOC: TELEMETRY STRIPS 12/03/2023 6:02 AM EDT SCAN DOC: TELEMETRY STRIPS 12/03/2023 5:27 AM EDT SCAN DOC: TELEMETRY STRIPS 12/03/2023 5:04 AM EDT SCAN DOC: TELEMETRY STRIPS 12/03/2023 1:40 AM EDT HC RANDOM URINE PEP Routine 12/03/2023 1 :30 AM EDT IMMUNOGLOBULINS, QUANTITATIVE Routine 12/03/2023 1:00 AM EDT IMMUNOFIXATION ELECTROPHORESIS Routine 12/03/2023 1:00 AM EDT BMP W/FASTING GLUCOSE Routine 12/03/2023 1:00 AM EDT DIFFERENTIAL, AUTOMATED Routine 12/03/19 24 1:00 AM EDT HEMOGRAM Routine 12/03/2023 1:00 AM EDT HC TRIGLYCERIDES Routine 12/03/2023 1:00 AM EDT HC CHOLESTEROL Routine 12/03/2023 1:00 AM EDT HC LDL CHOLESTEROL, DIRECT Routine 12/03/2023 1:00 AM EDT HC HEMOGLOBIN A1C Routine 12/03/2023 1:0 0 AM EDT HC IMMUNOGLOBULIN FREE LIGHT CHAINS, SERUM Routine 12/03/2023 1:00 AM EDT HC SERUM PROT. ELECTROPHORESIS Routine 12/03/2023 1:00 AM EDT HC LYME TOTAL (SCREEN) Routine 1:00 AM EDT HC ANAPLSMA PHGCYTOPHLM AMP PRB Routine 12/03/2023 1:00 AM EDT HC PARTIAL THROMBOPLASTIN TIME Routine 12/03/2023 1:00 AM EDT HC PROTHROMBIN TIME Routine 12/03/2023 1 :00 AM EDT HEPATIC FUNCTION PANEL Routine 1:00 AM EDT HC PROBNP Routine 12/03/2023 1:00 AM EDT HC THYROID STIMULATING HORMONE, SERUM Routine 12/03/2023 1:00 AM EDT HC PHOSPHORUS, SERUM Routine 12/03/2023 1:00 AM EDT HC MAGNESIUM, SERUM Routine 12/03/2023 1 :00 AM EDT HC CBC,PLT & AUTO DIFF Routine 1:00 AM EDT SCAN DOC: TELEMETRY STRIPS 12/02/2023 11:51 PM EDT SCAN DOC: TELEMETRY STRIPS 12/02/2023 11:38 PM EDT EKG 12-LEAD Routine 12/02/2023 11:21 PM EDT ECG SCAN Routine 12/02/2023 4:56 PM EDT from Last 3 Months Results * Scan Doc: Telemetry Strips (12/06/2023 8:02 AM EDT) Only the most recent of29 resultswithin the time period is included. Narrative 12/06/2023 8:02 AM EDT Ordered by an unspecified provider. Scanning Provider MEDIA MGR SCAN EXT O RDR/RSLT * XR Chest PA & Lateral (Generic) (12/06/2023 6:59 AM EDT) [employer] WORKSTATION ID [id number] RAD Anatomical Region Laterality Modality Chest N/A [...] who have questions please contact the health animal care technician that requested your imaging first. ? Narrative [...] patients who have questions please contactthe health animal care technician that requested your imaging first. Albert Oreilly MD IMG DX ORDERABLES * (ABNORMAL) Hemogram (12/06/2023 1:53 AM EDT) Only the most recent of3 resultswithin the time period is included. WBC 7.6 4.0 - 9.5 x10(3)/[facility] LABORATORY RBC 4.84 4.58 - 5.54 x10(6)/[facility] LABORATORY Hemoglobin 14.0 13.7 - 16.5 g/dL [facility] Hematocrit 44.2 40.5 - 48.5 % [facility] MCV 91.3 82.9 - 93.1 [facility] LABORATORY MCH 28.9 27.5 - 32.1 pg [facility] MCHC 31.7(L) 32.0 - 35.7 g/dL [facility] Platelets 140(L) 145 - 357 x10(3)/[facility] LABORATORY RDWSD 51.2(H) 36.0 - 45.0 [facility] LABORATORY RDWCV 15.4(H) 11.4 - 13.8 % [facility] MPV 10.3 7.6 - 12.9 [facility] LABORATORY nRBC % Auto 0.0 % [facility] LABORATORY nRBC Abs Auto 0.000 0.000 - 0.000 x10(3)/[facility] LABORATORY Blood 12/06/2023 1:53 AM EDT 12/06/2023 2:23 AM EDT Narrative Resulting Agency Comment Spec In Lab Albert Oreilly MD HEMATOLOGY ORDERAB LES [facility] [place] [address] * Phosphorus (12/06/2023 1:53 AM EDT) Only the most recent of4 resultswithin the time period is included. Phosphorus 2.8 2.5 - 4.5 mg/dL [facility] Blood 12/06/2023 1:53 AM EDT 12/06/2023 2:23 AM EDT Narrative Resulting Agency Comment Spec In Lab Albert Oreilly MD CHEMISTRY ORDERABL ES Performing Organization Address [facility]/ZIP Co de Phone Number [facility] [place] [address] * Magnesium (12/06/2023 1:53 AM EDT) Only the most recent of4 resultswithin the time period is included. Magnesium 0.86 0.69 - 1.07 mmol/L [facility] Blood 12/06/2023 1:53 AM EDT 12/06/2023 2:23 AM EDT Narrative Resulting Agency Comment Spec In Lab Albert Oreilly MD CHEMISTRY ORDERABL ES Performing Organization Address [facility]/ZIP Co de Phone Number [facility] [place] [address] * (ABNORMAL) Basic Metabolic Panel (non-fasting) (12/06/2023 1:53 AM EDT) Only the most recent of3 resultswithin the time period is included. Glucose Lvl 254(H) 65 - 199 mg/dL [facility] Comment:Diabetes: >=200 mg/d L plus symptoms BUN 30(H) 10 - 20 mg/dL [facility] Creatinine 1.47 0.80 - 1.50 mg/dL [facility] Sodium 139 135 - 145 mmol/L [facility] Potassium 4.0 3.5 - 5.0 mmol/L [facility] Comment: Please note: ??Patients with WBC >100,000 may have falsely elevated Potassium levels. ??For accurate Potassium quantification in these patients send serum separator tube (gold top) for subsequent determinations. ??Contact the Clinical Chemistry Laboratory if there are any questions. Chloride 104 98 - 107 mmol/L [facility] CO2 19(L) 22 - 31 mmol/L [facility] Anion Gap 16(H) 5 - 15 mmol/L [facility] Calcium 9.8 8.5 - 10.5 mg/dL [facility] Estimated GFR 47(L) >=60 mL/min/1. 73 m?? [facility] Comment: This patient's estimated [...] MD CHEMISTRY ORDERABL ES Performing Organization Address City/State/[facility] Co de Phone Number [facility] [place] [address] * ELECTROPHYSIOLOGY PROCEDURE (12/05/2023 3:14 PM EDT) Anatomical Region Laterality Modality Other Narrative 12/06/2023 10:27 PM EDT [facility] Cardiac Electrophysiology Procedure Report Procedure: Implant leadless pacemaker Procedure Date: 12/05/2023 Tax Technician: Heriberto Geronimo MD Substation Operator Transforming: Fabio Pringle MD Primary Care physician: Devorah Epstein MD Referring physician: Mei Sanchez MD Anesthesia: general anesthesia provided by anesthesia service Background: NrDarnell Cabrera ( 40) is an 83 y.o. 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 ??The Micra was then deployed. ?? [...] higher than the previous placement. RENEE and OCCITAN contrast injection views showed adequate positioning. After tug test electrical parameters remained excellent. The retention suture was cut and removed. ?? A byllrk-lb-[id number] stitch was placed around the sheath puncture site with syvek dressing underneath and the sheath removed with good hemostasis after a 20 minute manual hold. ?? Implant: Medtronic Micra VR Model [id number] Serial [id number] Programming: VVIR 60-120 Sensin.3 mV Impedance 830 [...] access Procedures performed: leadless pacemaker implantation (cpt 56489) Heriberto Geronimo MD [facility] Cardiac Electrophysiology 12/06/2023 10:26 PM . Heriberto Geronimo MD EP PROCEDURE ORDERAB LES * ECHO COMPLETE W CONTRAST (12/04/2023 9:31 AM EDT) Anatomical Region Laterality Modality Cardiac Other 12/04/2023 8:27 AM EDT Narrative 12/04/2023 10:10 AM EDT [address] [place] [address] ? Echocardiogram Report Name: SERGE CABRERA ? Study Date: 12/04/2023 08:27 AMBP: 180/80 mmHg ? Patient Location: [address] : 1940 ? Height: 183 cm ? Account: [id number] Age: 83 yrs ? Weight: 127 kg Gender: Male ?BSA: 2.5 m2 Ordering Physician: ALBERT OREILLY Referring Physician: MEI SANCHEZ Performed By: Kaden Anthony RDCS Reason For Study: Atrial fib/flutter, transient Exam Location: [facility]. Interpretation Summary -Wall thickness is moderately increased [...] visual assessment, DI, and estimated MICHAEL. Procedure Complete-[id number]. Image enhancement Optison was used for left [...] Note Diego Hoyos MD - 12/04/2023 [address] [place] [address] Echocardiogram Report Name: SERGE CABRERA Study Date: 408:27 AMBP: 180/80 mmHg Patient Location: [id number] : 1940 Height: 183 cm Account: [id number] Age: 83 yrs Weight: 127 kg Gender: Male BSA: 2.5 m2 Ordering Physician: ALBERT OREILLY Referring Physician: MEI SANCHEZ Performed By: Kaden Anthony RDCS Reason For Study: Atrial fib/flutter, transient Exam Location: [facility]. Interpretation Summary -Wall thickness is moderately increased [...] visual assessment, DI, and estimated MICHAEL. Procedure Complete-[id number]. Image enhancement Optison was used for left [...] Protein Ran 53(H) 0 - 12 mg/dL [facility] U Albumin 68 % total [facility] U Globulin 32 % total [facility] LAB[facility]ORY U M Band None Detected [facility] U PEP Comments See Note [facility] Comment: There is no evidence of clonal free light chains in this patient's urine sample. Urine 12/03/2023 1:30 AM EDT 12/03/2023 2:48 AM EDT Narrative Resulting Agency Comment Spec In Lab Albert Oreilly MD URINE ORDERABLES [facility] [place] [address] * Free Light Chains, Serum (12/03/2023 1:00 AM EDT) Guthrie Free Light Chain 2.66 0.72 - 2.75 mg/dL [facility] Lambda Free Light Chain 2.00 0.57 - 2.15 mg/dL [facility] Guthrie Lambda FLC Ratio 1.3300 0.4000 - 2.5800 [facility] Blood 12/03/2023 1:00 AM EDT 12/03/2023 1:17 AM EDT Narrative Resulting Agency Comment Spec In Lab Albert Oreilly MD CHEMISTRY ORDERABL ES [facility] [address] * Acute Tick Borne Infection Panel (12/03/2023 1:00 AM EDT) [facility] Anaplasma phagocytophilum PCR Not Detected Not Detected [facility] Comment: INTERPRETATION: A positive [...] [employer] [facility] [employer] (CG[employer]) Laboratory at [facility]. It has not been cleared or approved by the FDA. The laboratory is regulated under CLIA as qualified to perform high-complexity testing. This test is used for clinical purposes. It should not be regarded as investigational or for research. Ehrlichia chaffeensis PCR Not Detected Not Detected [facility] Comment: INTERPRETATION: A positive [...] and its performance characteristics determined by the [employer] ([employer]) Laboratory at [facility]. It has not been cleared or approved by the FDA. The laboratory is regulated under CLIA as qualified to perform high-complexity testing. This test is used for clinical purposes. It should not be regarded as investigational or for research. Babesia microti PCR Not Detected Not Detected [facility] Comment: INTERPRETATION: A positive [...] and its performance characteristics determined by the [employer] ([employer]) Laboratory at [facility]. It has not been cleared or approved by the FDA. The laboratory is regulated under CLIA as qualified to perform high-complexity testing. This test is used for clinical purposes. It should not be regarded as investigational or for research. Borrelia miyamotoi PCR Not Detected Not Detected [facility] Comment: INTERPRETATION: A positive [...] its performance characteristics determined by the Clinical [employer] (CGAT) Laboratory at [facility]. It has not been cleared or approved [...] MD HEMATOLOGY ORDERAB LES Performing Organization Address [facility] Co de Phone Number [facility] [place] [address] * Lyme IgG & IgM Antibody (12/03/2023 1:00 AM EDT) Pathologist [facility] Lyme Screening Antibody Negative Negative [facility] Lyme Ab Comment Negative result does not exclude possibility of infection. [facility] Comment: Please note that as of 11/01/2022 that this testing is performed by the Special Chemistry Laboratory at [facility]. This change in testing location is associated with a change in testing methodology. Blood 12/03/2023 1:00 AM EDT 12/04/2023 7:29 AM EDT Narrative Resulting Agency Comment Spec In Lab Albert Oreilly MD IMMUNOLOGY ORDERAB LES Performing Organization Address [facility] Co de Phone Number [facility] [place] [address] * (ABNORMAL) Immunoglobulins, Quantitative (12/03/2023 1:00 AM EDT) Pathologist [facility] IgG 685(L) 700 - 1,600 mg/dL [facility] Comment: Pediatric Reference Intervals obtained from the Caliper Reference Interval project. http://www.sickkids.ca/caliperproject/index.html IgA 142 70 - 400 mg/dL [facility] IgM 14(L) 40 - 230 mg/dL [facility] Blood Venous Draw / Unknown 12/03/2023 1:00 AM EDT 12/03/2023 1:17 AM EDT Narrative Resulting Agency Comment Spec In Lab Elías Duff MD CHEMISTRY ORDERABLES [facility] [place] [address] * (ABNORMAL) BMP w/fasting Glucose (12/03/2023 1:00 AM EDT) Glucose Fasting 134(H) 65 - 99 mg/dL [facility] Comment: ?Fasting* Glucose Interpretive [...] of Diabetes Mellitus, Position Statement from the [place] [employer] Association. ??Diabetes Care, Volume 33, Supplement 1, Jun 2009 BUN 35(H) 10 - 20 mg/dL [facility] Creatinine 1.86(H) 0.80 - 1.50 mg/dL [facility] Sodium 141 135 - 145 mmol/L [facility] Potassium 4.4 3.5 - 5.0 mmol/L [facility] Comment: Please note: ??Patients with WBC >100,000 may have falsely elevated Potassium levels. ??For accurate Potassium quantification in these patients send serum separator tube (gold top) for subsequent determinations. ??Contact the Clinical Chemistry Laboratory if there are any questions. Chloride 109(H) 98 - 107 mmol/L [facility] CO2 20(L) 22 - 31 mmol/L [facility] Anion Gap 12 5 - 15 mmol/L [facility] Calcium 9.8 8.5 - 10.5 mg/dL [facility] Estimated GFR 35(L) >=60 mL/min/1. 73 m?? [facility] Comment: This patient's estimated [...] Duff MD CHEMISTRY ORDERABLES Performing Organization Address City/[facility]/ZIP Co de Phone Number [facility] [place] [address] * Immunofixation Electrophoresis (12/03/2023 1:00 AM EDT) RICHARD See Note [facility] Comment: RICHARD shows no evidence of a monoclonal immunoglobulin. Dr. Miguel A Park 12/06/2023 See scanned report. Blood Venous Draw / Unknown 12/03/2023 1:00 AM EDT 12/03/2023 1:17 AM EDT Narrative Resulting Agency Comment Spec In Lab Elías Duff MD CHEMISTRY ORDERABLES [facility] [place] [address] * (ABNORMAL) Differential, Automated (12/03/2023 1:00 AM EDT) Neutrophils % 72.9 % [facility] Neutr Abs (ANC) 3.74 1.70 - 6.10 x10(3)/[facility] LABORATORY Lymphocytes % 14.5 % [facility] Lymphocytes Abs 0.7(L) 0.9 - 3.2 x10(3)/[facility] LABORATORY Monocytes % 10.4 % [facility]OR[facility] Monocyte Abs 0.5 0.3 - 0.9 x10(3)/[facility] LABORATORY Eosinophils % 1.4 % [facility] Eosinophils Abs 0.1 0.0 - 0.4 x10(3)/[facility] LABORATORY Basophils % 0.4 % [facility] Basophils Abs 0.0 0.0 - 0.1 x10(3)/[facility] LABORATORY Immature Gran % 0.40 % [facility] Comment: Immature granulocytes(IG's)percentage and absolute count will include metamyelocytes, myelocytes, and promyelocytes. Blood smears from CBCs yielding IG's will be scanned manually for concordance. If this scan disagrees with the automated IG or if promyelocytes are noted, a manual differential will be performed. Steph Gran Abs 0.02 0.00 - 0.04 x10(3)/[facility] LABORATORY Blood 12/03/2023 1:00 AM EDT 12/03/2023 1:17 AM EDT Narrative Resulting Agency Comment Spec In Lab Elías Duff MD HEMATOLOGY ORDERABLE S [facility] [place] [address] * APTT (12/03/2023 1:00 AM EDT) PTT 31 25 - 37 sec [facility] Comment: The PTT is NOT appropriate for heparin monitoring. Use the Anti-Xa level for heparin monitoring (HEP UFH) or LMWH monitoring (HEP LMW). A PTT less than 37 seconds generally indicates adequate hemostasis. Blood 12/03/2023 1:00 AM EDT 12/03/2023 1:17 AM EDT Narrative Resulting Agency Comment Spec In Lab Albert Oreilly MD HEMATOLOGY ORDERAB LES Performing Organization Address [facility] de Phone Number [facility] [place] [address] * (ABNORMAL) Prothrombin Time (12/03/2023 1:00 AM EDT) PT 14.7(H) 9.4 - 12.5 sec [facility] INR 1.3 [facility] Comment: An INR <2.0 indicates [...] MD HEMATOLOGY ORDERAB LES Performing Organization Address [facility] Phone Number [facility] [place] [address] * Triglyceride (12/03/2023 1:00 AM EDT) Triglycerides 154 mg/dL [facility] [facility] Comment: Normal: ?<150 mg/dL Borderline High: 150-199 mg/dL High: ?200-499 mg/dL Very High: ? >ey=439 mg/dL Blood 12/03/2023 1:00 AM EDT 12/03/2023 1:17 AM EDT Narrative Resulting Agency Comment Spec In Lab Albert Oreilly MD CHEMISTRY ORDERABL ES Performing Organization Address [facility] Co de Phone Number [facility] [place] [address] * TSH (12/03/2023 1:00 AM EDT) TSH 1.29 0.27 - 4.20 mcIU/mL [facility] Comment: Reference Interval (mcIU/mL): Females: ??First Trimester: 0.23-3.88 ??Second Trimester: 0.22-3.90 ??Third Trimester: 0.44-4.66 Blood 12/03/2023 1:00 AM EDT 12/03/2023 1:17 AM EDT Narrative Resulting Agency Comment Spec In Lab Albert Oreilly MD CHEMISTRY ORDERABL ES Performing Organization Address [facility] Co de Phone Number [facility] [place] [address] * (ABNORMAL) Protein Electrophoresis, serum (12/03/2023 1:00 AM EDT) Total Prot Elec 6.0(L) 6.1 - 8.0 g/dL [facility] Albumin Elect 4.13 3.20 - 5.20 g/dL [facility] Alpha1-Globulin 0.19 0.10 - 0.30 g/dL [facility] Alpha2-Globulin 0.60 0.40 - 0.90 g/dL [facility] Beta Globulin 0.62 0.50 - 1.00 g/dL [facility] Gamma Globulin 0.46(L) 0.50 - 1.30 g/dL [facility] M1 Band Comments Below None Detected [facility] SPEP Comments See Note [facility] Comment: 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 Immunofixation (RICHARD) and quantitative immunoglobulin (NIK) testing will be performed on this sample. Blood 12/03/2023 1:00 AM EDT 12/03/2023 1:17 AM EDT Narrative Resulting Agency Comment Spec In Lab Albert Oreilly MD CHEMISTRY ORDERABL ES Performing Organization Address City/[facility]/ZIP Co de Phone Number [facility] [place] [address] * (ABNORMAL) pro-Brain Natriuretic Peptide (12/03/2023 1:00 AM EDT) ProBNP 4,344(H) <=449 pg/mL [facility] Blood 12/03/2023 1:00 AM EDT 12/03/2023 1:17 AM EDT Narrative Resulting Agency Comment Spec In Lab Albert Oreilly MD CHEMISTRY ORDERABL ES Performing Organization Address [facility] Co de Phone Number [facility] [place] [address] * LDL Cholesterol, Direct (12/03/2023 1:00 AM EDT) LDL Chol Direct 29 mg/dL [facility] Comment: Desirable: ? <100 mg/dL Above Desirable: 100-129 mg/dL Borderline High: 130-159 mg/dL High: ?160-189 mg/dL Very High: ? >ex=345 mg/dL If not reaching LDL goals on [...] Lab Albert Oreilly MD CHEMISTRY ORDERABL ES [facility] [place] [address] * HDL/Cholesterol Profile (12/03/2023 1:00 AM EDT) Chol, Total 78 mg/dL [facility] Comment: Desirable: ? <200 mg/dL Borderline High: 200-239 mg/dL Higher: ?>ia=219 mg/dL HDL 34 mg/dL [facility] Comment: Females: High Risk: <50 mg/dL Males: High Risk: <40 mg/dL Lipid Interpretation See Note [facility] Comment: It is important [...] ACC/AHA Guidelines (most recently Tiago et al. [facility] 03/29/22): For individuals with atherosclerotic cardiovascular disease (ASCVD)or LDL >ay=947 mg/dL, use a high-intensity statin (40-80 mg [...] MD CHEMISTRY ORDERABL ES Performing Organization Address [facility] Co de Phone Number [facility] [place] [address] * (ABNORMAL) Hemoglobin A1c (12/03/2023 1:00 AM EDT) Hemoglobin A1C 6.5(H) 4.3 - 5.6 % [facility] Comment: Reference Range: 4.3 [...] [id number] Est Avg Gluc See note mg/dL [facility] Comment: Estimated Average Glucose not appropriate for patients over 70 years of age. Blood 12/03/2023 1:00 AM EDT 12/03/2023 1:17 AM EDT Narrative Resulting Agency Comment Spec In Lab Albert Oreilly MD CHEMISTRY ORDERABL ES Performing Organization Address [facility] Co de Phone Number [facility] [place] [address] * Hepatic Function Panel (12/03/2023 1:00 AM EDT) Total Protein 6.1 6.1 - 8.0 g/dL [facility] Albumin 4.0 3.2 - 5.2 g/dL [facility] AST 14 0 - 39 unit/L [facility] ALT 15 0 - 55 unit/L [facility] Alk Phos 70 40 - 130 unit/L [facility] Total Bilirubin 0.8 0.2 - 1.3 mg/dL [facility] Bili, Direct 0.3 0.0 - 0.3 mg/dL [facility] Blood 12/03/2023 1:00 AM EDT 12/03/2023 1:17 AM EDT Narrative Resulting Agency Comment Spec In Lab Albert Oreilly MD CHEMISTRY ORDERABL ES Performing Organization Address City/[facility]/ZIP Co de Phone Number [facility] [place] [address] * EKG 12 Lead (12/02/2023 11:21 PM EDT) Pathologist [facility] Ventricular rate 32 BPM MUSE SYSTEM QRS Duration 188 ms MUSE SYSTEM Q-T Interval 698 ms MUSE SYSTEM QTC Calculated (Bezet) 509 ms MUSE SYSTEM Calculated R Galt -94 degrees MUSE SYSTEM Calculated T Galt 133 degrees MUSE SYSTEM INTERPRETATION Idioventricular rhythm Indeterminate axis Left bundle branch block Abnormal ECG When compared with ECG of 17-OCT-2017 14:33, Idioventricular rhythm has replaced Sinus rhythm Vent. 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 Advance Directives and Living Will 09/01/2017 4:24 PM Personal [employer]o Mechanical Engineer 09/01/2017 2:38 PM Sanna Cabrera * Attempt Cardiopulmonary Resuscitation - Inpatient (Latest Code Status on File) Date Activated Date Inactivated Comments 12/05/2023 5:22 PM 12/06/2023 4:45 PM Question Answer Comments Code Status decision made by: Patient * Attempt Cardiopulmonary Resuscitation - Inpatient Date Activated Date Inactivated Comments 12/02/2023 11:22 PM 12/05/2023 5:22 PM Question Answer Comments Code Status decision made by: Patient * Full Code Date Activated Date Inactivated Comments 11/30/2017 9:22 AM 12/01/2017 4:42 PM Question Answer Comments Does patient have capacity to make decision: Yes * Full Code Date Activated Date Inactivated Comments 09/11/2017 11:06 AM 09/15/2017 12:59 PM Question Answer Comments Does patient have capacity to make decision: Yes * Full Code Date Activated Date Inactivated Comments 09/11/2017 7:05 AM 09/11/2017 11:06 AM Question Answer Comments Does patient have capacity to make decision: Yes Healthcare Agents on File Name Relationship Healthcare Agent Relationship Communication Sanna Cabrera-Jeff Child Health Care Agent [phone] (Mobile ) Care Teams Medical Field Representative Relationship Specialty Start Date End Date Devorah Epstein MD [address] [place] [address] PCP - General Family Medicine 09/01/17
--- OUTSIDE RECORDS SUMMARY | 2024-01-22 03:00 | XMS_ITS | Encounter Summary ---
Author Organization [facility] Address [address] [place] [address] Care Team Providers Care Pad Machine Feeder Name Role Phone Devorah Epstein MD Primary Care Provider [phone] Encounter Details Date Type Department Care Team (Latest Contact Info) Description 06/03/2016 7:19 EST - 06/03/2016 23:59 EST Hospital Encounter [address] [address] Unknown, Provider, Discharge Disposition: Home or Self Care Social History Tobacco Use Types Packs/Day Years Used Date Smoking Tobacco: Never Assessed Sex and Gender Information Value Date Recorded Sex Assigned at Not on file Gender Identity Not on file Sexual Orientation Not on file documented as of this encounter Discharge Disposition Disposition Code Departure Means Destination Home or Self Senior Living documented in this encounter Plan of Treatment Not on file documented as of this encounter Visit Diagnoses Not on filedocumented in this encounter Care Teams Pad Machine Feeder Relationship Specialty Start Date End Date Devorah Epstein MD [address] [place] [phone] PCP - General 11/04/15 documented as of this encounter
--- OUTSIDE RECORDS SUMMARY | 2024-01-22 03:00 | XMS_ITS | Encounter Summary ---
Author Organization [facility] Address [address] [place] [address] Care Team Providers Care High Density Talc Coater Operator Name Role Phone Devorah Bahena MD Primary Care Provider [phone] Encounter Details Date Type Department Care Team (Late st Contact Info) Description 06/03/2016 Results Only [facility] [phone] Roberto Rock, DO [address] [place] [address] Social History Tobacco Use Types Packs/Day Years Used Date Smoking Tobacco: Never Assessed Sex and Gender Information Value Date Recorded Sex Assigned at Not on file Gender Identity Not on file Sexual Orientation Not on file documented as of this encounter Plan of Treatment Not on file documented as of this encounter Procedures Procedure Name Priority Date/Time Associated Diagnosis Comments SURGICAL PATHOLOGY Routine 06/03/2016 18 :47 EST documented in this encounter Results * SURGICAL PATHOLOGY (06/03/2016 18:47 EST) Pathology Report: SURGICAL PATHOLOGY REPORT Reports generated via electronic interface contain original data; however they are lacking the format of the original report. Caution should be taken when reading/interpret ing unformatted reports. Name: ? KENDRICK SERGE Martha ? Accession #: ? [id number] ? : ? 1940 (Age: 75) ??M ? Collect Date: ? 06/03/2016 ? Location: ? [facility] ? Receive Date: ? 06/06/2016 ? Provider: ROBERTO ROCK DO Copy to: DEVORAH BAHENA MD ? Final Pathologic Diagnosis: COLON, ASCENDING, POLYP, BIOPSY: - ??Fragments of tubular adenoma. Document reviewed and electronically signed by: RENNY REAL MD Report ??Date: 06/09/2016 06:06 By the signature above, the attending physician certifies that he/she has personally conducted a gross and/or microscopic examination of the described specimens and rendered or confirmed the above diagnosis. Specimen(s) Received: Ascending colon polyp Clinical History: Colorectal screening; clinical diagnosis code: ??Z80.0 Gross Description: ? Received in formalin labelled with proper patient identification (initials C, P) and ascending colon polyp is a single pink-cruz tissue fragment (0.3 x 0.3 x 0.3 cm). Submitted intact in block 1. CASSI Carcamo (ASCP) 06/07/2016 8:48 AM End of Report [facility] 06/03/2016 18:4 7 EST 06/06/2016 18:47 EST Roberto Rock DO PATHOLOGY ORDERABLES [facility] [address] [place] [address] documented in this encounter Visit Diagnoses Not on filedocumented in this encounter Care Teams High Density Talc Coater Operator Relationship Specialty Start Date End Date Devorah Bahena MD [address] [place] [phone] PCP - General 11/04/15 documented as of this encounter
--- OUTSIDE RECORDS SUMMARY | 2024-01-22 03:01 | XMS_ITS | Encounter Summary ---
[place] [address] Care Team Providers Care Watch Parts Inspector Name Role Phone Devorah Epstein MD Primary Care Provider [phone] Reason for Visit * Auth/Cert Specialty Diagnoses / Procedures Referred By Binh taylor Referred To Contact Diagnoses Pericardial effusion Pericardial effusion [I31.3] n/a Procedures CARDIAC CATHETERIZATION Referral ID Status Reason Start Date Expiration Date Visits Re quested Visits Authorized [id number] 1 1 Encounter Details Date Type Department Care Team (Late st Contact Info) Description 11/30/2017 9:30 AM EDT - 11/30/2017 10:30 AM EDT Surgery [place] [address] Kathie Panchal MD [facility] [place] [address] CARDIAC CATHETERIZATION Social History Tobacco Use Types Packs/Day Years Used Date Smoking Tobacco: Former Smokeless Tobacco: Never Alcohol Use Standard Drinks/Week Comments No 0 (1 standard drink = 0.6 oz pur e alcohol) Sex and Gender Information Value Date Recorded Sex Assigned at Not on file Gender Identity Not on file Sexual Orientation Not on file documented as of this encounter Discharge Summaries * Vikash Smith, QI - 12/01/2017 10:55 AM EDT Inpatient - Discharge Summary Patient Name: Keegan ALICEAN: [id number] Patient Age: 77 y.o. Birthdate: 1940 Language: Bulgarian Race: White Ethnicity: Not nor Admit Date: 11/30/2017 Discharge Date: 12/01/17 Attending Physician: Pablo Govea MD Follow-up Recommendations for Providers: Please continue routine management of cardiovascular risk factors including blood pressure, lipids,glucose, etc. Please note any changes to medications. Patient to follow-up with PCP, Devorah Epstein MD, in 1-2 weeks. Patient to follow-up with Floating Operator, Dr Marie, in two weeks. Patient to follow-up with Cardiac Surgery, Dr. Pablo Govea, in ~ 4 weeks with an Echo. Inpatient Provider Contact Information: [facility] Section of Cardiac Surgery [facility] [address] FAX [phone] Discharge Diagnoses (Hospital Problems) Primary Diagnoses: Pericardial effusion s/p pericardiocentesis 11/30/17 Secondary Diagnoses: SVT Other Diagnoses (Chronic Problems): Active Non-Hospital Problems Diagnosis ??? Atherosclerosis of [place] coronary artery of [place] heart with angina pectoris Discharged to: Patient discharged to home Functional and Cognitive Status: stable Discharge Conditions/Prognosis: stable No past medical history on file. Past Surgical History: Procedure Laterality Date ??? PRO CABG, ARTERIAL, SINGLE N/A 09/11/2017 @CABG, USING ARTERIAL GRAFT;SINGLE ARTERIAL GRAFT (WRVU 33.75) performed by Pablo Govea MD at [facility] MAIN OR ??? PRO CABG, ARTERY-VEIN, SINGLE N/A 09/11/2017 @CABG, VENOUS & ARTERIAL GRAFT;SINGLE VEIN GRAFT (WRVU 3.61) performed by Pablo Govea MD at [facility] MAIN OR ??? PRO ENDOSCOPY W/VIDEO-ASST VEIN HARVEST, CABG Right 09/11/2017 ENDOSCOPIC HARVEST VEIN(S) FOR CABG (WRVU 0.31) performed by Pablo Govea MD at [facility] MAIN OR Prior To Admission Medications Prescriptions Prior to Admission Medication Sig Dispense Refill Last Dose ??? meTOPROLOL tartrate (LOPRESSOR) 25 mg Tablet Take 1 tablet by mouth every 8 hours. 180 tablet at Unknown time ??? rosuvastatin (CRESTOR) 20 mg Tablet Take 20 mg by mouth daily. Taking at Unknown time ??? acetaminophen (TYLENOL) 500 mg Tablet Take 2 tablets by mouth every 6 hours as needed for Pain.30 tablet 1 Taking at Unknown time ??? chlorthalidone (HYGROTEN) 25 mg Tablet Take 25 mg by mouth daily. Taking at Unknown time ??? selenium 50 mcg Tablet Take 200 mcg by mouth. Taking at Unknown time ??? omeprazole (PRILOSEC) 20 mg Capsule, Delayed Release(E.C.) Take 20 mg by mouth daily. Taking atUnknown time ??? lactobacillus rhamnosus, GG, (CULTURELLE) 10 billion cell Capsule Take 1 capsule by mouth daily. Taking at Unknown time ??? aspirin 81 mg Tablet, Delayed Release (E.C.) Take 81 mg by mouth daily. Taking at Unknown time ??? cholecalciferol, Vitamin D3, 1,000 unit Capsule Take by mouth. Taking at Unknown time ??? glucosamine sulfate 500 mg Tablet Take 1,000 mg by mouth. Taking at Unknown time Updated Allergies/ADRs: No Known Allergies History of Presentation: Keegan Cabrera is a 77 y.o. male who is s/p CABGx2 in august who was discharged, participating in cardiac rehab and noted progressive fatigue and non productive cough. He was evaluated at OSH and found to have a pericardial effusion on echo. He presented to cardiac surgery clinic today, planned for drainage of pericardial effusion in photo lab technician later today. Major Procedures/Operations: 11/30/17 Pericardiocentesis Hospital Course: Keegan Cabrera was admitted to [facility] on 11/30/2017 via the cardiac surgery clinic. He was brought to the photo lab technician where Dr. Panchal performed echo guided pericardiocentesis with 1100cc serous blood tinged fluid removed. Drain was removed in the photo lab technician. He tolerated the procedure and was brought to the [facility]. His home medication were resumed. 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 His discharge plan at this time is to home. The remainder of the his hospital course was uneventfuland by postoperative day #1 he had met all criteria for discharge. Pain was controlled on oral medications. He had walked 5 minutes and gone up and down stairs. He was tolerating a regular diet and had a bowel movement. Postoperatively his cough continued and it was determined that at discharge his metoprolol would bestopped and Bisoprolol, a beta 1-selective bb was started. Vital Signs at Discharge: Last set of vitals: BP 130/67 (BP Location (NBP): Left arm, Patient Position: Sitting) Pulse 68 Temp 36.7 ??C (98.1 ??F) (Oral) Resp 18 Ht 182.9 cm (6') Wt 130.6 kg (288 lb) SpO2 99% BMI 39.06 kg/m2 Patient Vitals for the past 168 hrs: Weight 11/30/17 1107 130.6 kg (288 lb) Current weight: Admit/Preop weight: 130.6kg Pertinent physical exam findings prior to discharge: General: A&Ox3. NAD Lungs: CTABL Heart: RRR. Diminished heart sounds Abdomen: +BS. NT, ND Ext: Moves all extremities. Incisions: C/D/I Important Studies and Lab Data: Lab Results Component Value Date WBC 5.9 11/30/2017 RBC 4.43 (L) 11/30/2017 HGB 11.4 (L) 11/30/2017 HCT 36.8 (L) 11/30/2017 PLATELET 179 11/30/2017 No results for input(s): INR in the last 168 hours. Lab Results Component Value Date NA 142 11/30/2017 K 3.7 11/30/2017 CL 103 11/30/2017 CO2 26 11/30/2017 BUN 17 11/30/2017 CREATININE 1.29 11/30/2017 Pending Studies and Lab Data: none Immunizations Given this Hospitalization: There is no immunization history on file for this patient. Smoking Status at Discharge: History Smoking Status ??? Former Smoker Smokeless Tobacco ??? Never Used Discharge Medications: Your Medications New Medications Dose Details bisoprolol 5 mg Tab Commonly known as: ZEBETA Take 1 tablet by mouth daily. 5 mg Quantity: 30 tablet Refills: 3 * predniSONE 20 mg Tab Commonly known as: DELTASONE Take 1 tablet by mouth daily for 6 days. Start taking on: 12/02/2017 20 mg Quantity: 6 tablet Refills: 0 * predniSONE 10 mg Tab Commonly known as: DELTASONE Take 1.5 tablets by mouth daily for 7 days. Start 12/08/17 Start taking on: 12/08/2017 15 mg Quantity: 11 tablet Refills: 0 * predniSONE 10 mg Tab Commonly known as: DELTASONE Take 1 tablet by mouth daily for 7 days. Start 12/15/17 for 7 days Start taking on: 12/15/2017 10 mg Quantity: 7 tablet Refills: 0 * predniSONE 5 mg Tab Commonly known as: DELTASONE Take 1 tablet by mouth daily for 7 days. Start 12/22/17 for 7 days Start taking on: 12/22/2017 5 mg Quantity: 7 tablet Refills: 0 * Notice: This list has 4 medication(s) that are the same as other medications prescribed for you. Read the directions carefully, and ask your doctor or other care provider to review them with you. Continued medications, unchanged Dose Details acetaminophen 500 mg Tab Commonly known as: TYLENOL Take 2 tablets by mouth every 6 hours as needed for Pain. 1000 mg Quantity: 30 tablet Refills: 1 aspirin 81 mg Tbec Take 81 mg by mouth daily. 81 mg Refills: 0 chlorthalidone 25 mg Tab Commonly known as: HYGROTEN Take 25 mg by mouth daily. 25 mg Refills: 0 cholecalciferol (Vitamin D3) 1,000 unit Cap Take by mouth. Refills: 0 glucosamine sulfate 500 mg Tab Take 1,000 mg by mouth. 1000 mg Refills: 0 lactobacillus rhamnosus (GG) 10 billion cell Cap Commonly known as: CULTURELLE Take 1 capsule by mouth daily. 1 capsule Refills: 0 omeprazole 20 mg Cpdr Commonly known as: PriLOSEC Take 20 mg by mouth daily. 20 mg Refills: 0 rosuvastatin 20 mg Tab Commonly known as: CRESTOR Take 20 mg by mouth daily. 20 mg Refills: 0 selenium 50 mcg Tab Take 200 mcg by mouth. 200 mcg Refills: 0 STOPPED Medications metoprolol tartrate 25 mg Tab Commonly known as: LOPRESSOR Instructions Given to Patient at Discharge: General Instructions None Discharge Instructions: Call your doctor if: You have a fever of greater than 101 degrees, shaking chills, if you develop redness or drainage from your incision sites, or if you have questions. Please call your surgeon's office if you have any discharge or drainage from your chest incision. Your surgeon, Dr. Pablo Govea and/or the Cardiac Surgery Physician Guard Chief Team may be reached at . Weight: Weigh yourself daily. Please call the office if you notice increasing weight, increasing fluid retention (edema), and/or SOB. Activity level: May return to cardiac rehab Medications: Take only those medications listed on your discharge information. Keep your pain undercontrol so you can be active, do your coughing and breathing exercises and sleep. Contact us if thepain medication isn't working for you. Do not take any herbal preparations until after you return to see the surgeon. Diet: You should follow a low fat, low cholesterol, [place] Heart [employer] Diet. Shower/Bath: You may shower daily. No baths, soaking, or swimming until cleared by your surgeon. Wound care: Wash your incisions daily with antibacterial soap and rinse well, pat dry. Assess for any signs of infection such as increased redness, pain, warmth or drainage. Please call your surgeon's office if you have any discharge or drainage from your chest incision. If there is a lot of swelling, apply kathrin wraps during the day and remove at bedtime. Elevate your legs when you are sitting. Home oxygen therapy: N/A Follow up appointments: Patient to follow-up with PCP, Devorah Epstein MD, in 1-2 weeks. Patient to follow-up with Floating Operator, Dr. Marie, in two weeks. Patient to follow-up with Cardiac Surgery, Dr. Pablo Govea as needed Future Appointments and Orders Future Orders Complete By Expires Echocardiogram Transthoracic([place]) [[id number] Custom] 12/02/2017 06/03/2018 Process Instructions: If the Echocardiogram is to be PERFORMED in a [facility] location other than [place]--STOP and order [id number], Echocardiogram South/External. Scheduling Instructions: Questions: Is a Bubble Study requested?: Does the patient have Congenital Heart Disease?: Does patient require sedation?: GA rationale: Arrangements for VNA/home care: As above. Signed: VIKASH SMITH APRN [facility] Section of Cardiac Surgery [facility] [address] FAX [phone] Date: 12/01/2017 CC: Devorah Epstein MD No referring provider defined for this encounter. documented in this encounter Discharge Instructions * Patient Instructions* Vikash Smith, BOTTOM MAN - 12/01/2017 1:45 PM EDT Discharge Instructions: ?? Call your doctor if: You have a fever of greater than 101 degrees, shaking chills, if you develop redness or drainage from your incision sites, or if you have questions. Please call your surgeon's office if you have any discharge or drainage from your chest incision. Your surgeon, Dr. Pablo Govea and/or the Cardiac Surgery Physician Guard Chief Team may be reached at . ?? Weight: Weigh yourself daily. Please call the office if you notice increasing weight, increasing fluid retention (edema), and/or SOB. ?? Activity level: May return to cardiac rehab ?? Medications: Take only those medications listed on your discharge information. Keep your pain undercontrol so you can be active, do your coughing and breathing exercises and sleep. Contact us if thepain medication isn't working for you. Do not take any herbal preparations until after you return to see the surgeon. ? Diet: You should follow a low fat, low cholesterol, [place] [employer] Diet. ? Shower/Bath: You may shower daily. No baths, soaking, or swimming until cleared by your surgeon. ?? Wound care: Wash your incisions daily with antibacterial soap and rinse well, pat dry. Assess for any signs of infection such as increased redness, pain, warmth or drainage. Please call your surgeon's office if you have any discharge or drainage from your chest incision. If there is a lot of swelling, apply kathrin wraps during the day and remove at bedtime. Elevate your legs when you are sitting. ? Home oxygen therapy: N/A ?? Follow up appointments: ? Patient to follow-up with PCP, Devorah Epstein MD, in 1-2 weeks. ?? Patient to follow-up with Floating Operator, Dr. Marie, in two weeks. ?? Patient to follow-up with Cardiac Surgery, Dr. Pablo Govea in 4 wks with an Echo documented in this encounter Medications at Time of Discharge Medication Sig Dispensed Refills Start Date End Date rosuvastatin (CRESTOR) 20 mg Tablet Take 20 mg by mouth daily. omeprazole (PRILOSEC) 20 mg Capsule, Delayed Release(E.C.) Take 20 mg by mouth daily. aspirin 81 mg Tablet, Delayed Release (E.C.) Take 81 mg by mouth daily. predniSONE (DELTASONE) 20 mg Tablet Take 1 tablet by mouth daily for 6 days. 6 tablet 12/02/2017 12/08/2017 predniSONE (DELTASONE) 10 mg Tablet Take 1.5 tablets by mouth daily for 7 days. Start 12/08/17 11 tablet 12/08/2017 12/15/2017 predniSONE (DELTASONE) 10 mg Tablet Take 1 tablet by mouth daily for 7 days. Start 12/15/17 for 7 days 7 tablet 12/15/2017 12/22/2017 predniSONE (DELTASONE) 5 mg Tablet Take 1 tablet by mouth daily for 7 days. Start 12/22/17 for 7 days 7 tablet 12/22/2017 12/29/2017 bisoprolol (ZEBETA) 5 mg Tablet Take 1 tablet by mouth daily. 30 tablet 3 12/01/2017 12/02/2023 acetaminophen (TYLENOL) 500 mg Tablet Take 2 tablets by mouth every 6 hours as needed for Pain. 30 tablet 1 09/15/2017 12/02/2023 chlorthalidone (HYGROTEN) 25 mg Tablet Take 25 mg by mouth daily. 12/02/2023 selenium 50 mcg Tablet Take 200 mcg by mouth. 12/02/2023 lactobacillus rhamnosus, GG, (CULTURELLE) 10 billion cell Capsule Take 1 capsule by mouth daily. 12/02/2023 cholecalciferol, Vitamin D3, 1,000 unit Capsule Take by mouth. 12/02/2023 glucosamine sulfate 500 mg Tablet Take 1,000 mg by mouth. 12/02/2023 documented as of this encounter Progress Notes * Mara Moon RN - 12/01/2017 2:37 PM EDT Patient has been alert and oriented this shift. VSS. No reports of pain or discomfort. Has been ambulating SBA on unit. Discharge order acknowledged. IV and telemetry d/c'd. AVS printed and provided to patient. AVS and medications reviewed with patient. All questions answered. Pt discharged via wheel chair to [facility] with daughter in stable condition. * Sherlyn Tamayo RN - 11/30/2017 6:34 PM EDT Keegan arrived on the unit around 1500. He is A&Ox4. Denies any CP or SOB. Drain sites covered. On RA. Family at bedside. NSR with HR 90s * Kathie Panchal MD - 11/30/2017 2:14 PM EDT Preliminary Cardiac Catheterization Procedure Note: Procedure(s) performed: Right heart cath, US guided Pericardiocentesis Baseline Frailty Assessment: Definitions from [place] [employer] Health and Aging Clinical Frailty Scale: 2: WELL: no active disease symptoms, exercising occasionally or seasonally Access: Venous: Right Femoral Pericardial: Subxiphoid Right Heart Hemodynamics RA: RV: 38/-/10 PA: PCW: Mean = 15 Pericardiocentesis Under ultrasound guidance access to the pericardial space was obtained utilizing a modification of the Selidinger Technique. Pericardial pressure opening pressure ~ 2 mmHg ~1100 ml of blood tinged straw colored fluid was removed. Repeat TTE demonstrated no pericardial fluid. Hemostasis: Right femoral venous sheath was removed at case completion with hemostasis obtained by manual compression The patient tolerated the procedure well and was transferred from the cardiac catheterization lab to the the CRU in stable condition without apparent complications. Full report to follow. KATHIE PANCHAL MD auto bumper mechanic Pager [phone] * Dalton Stevens MD - 11/30/2017 11:47 AM EDT IC PRE-PROCEDURE NOTE ADDENDUM Name: Keegan Cabrera Date of : 1940 Procedure: Pericardial drain, cardiac catheterization The patient's history and physical exam have been reviewed and completed. There has been no interval change from that of the pre-operative history and physical exam done within the last 30 days. Physical Examination: GEN: AAO, NAD Chest: Non dyspneic at rest, CTAB Heart: RRR, no MRG ASA 3 - Patient with moderate systemic disease with functional limitations Mallampati III (soft palate, base of uvula visible) The planned procedure, its benefits/risks and alternatives were discussed with the patient and consent was given. -Dalton Stevens MD (Pager #[phone]) documented in this encounter H&P Notes * Pablo Govea MD - 11/30/2017 4:06 PM EDT Please see the office note from today for details. Pt is s/p cabgx2 now will a cough and archuleta afeb vss Wound cdi Legs no swelling Lung clear cxr clear but enlarged cardiac silouette Echo moderate size effusion Imp: pericardial effusion of unknown consequence to his coughing Plan: drainage Begin steroid taper for this. documented in this encounter Miscellaneous Notes * Initial Assessments - Parvin Sim RN - 12/01/2017 12:33 PM EDT Office of Care Management Initial Assessment ?? Vaishali Escobar RN reviewed record and discussed patient with Care Team. ?? Source of Information: daughter Introduced self/reviewed role; services accepted. ?? Reason for Hospitalization: Patient seen at OSH for pericardial effusion seen on chest CT. He had acabg x 2 on 09/11/17. Comes in with increased SOB. No syncope. S/p Right heart cath, US guided Pericardiocentesis 11/30 at 2:14 ?? Past??Medical??History No past medical history on file. ?? Hospitalizations Within the Past 30 Days: no ?? Anticipated Length Of Stay (If known): 4-7 days ?? Current Decision-Making Capacity: able to make decisions ?? Advance Care Planning: on chart ?? Current Coping/Education/Information Needs: updated by team ?? Current Functional Ability: needs minimal assist ?? Functional Status Prior to Admission: independent ?? Home Environment: lives with niece and daughter, no stairs ?? Social & Family Supports/Community Resources: family close and supportive ?? Behavioral Health History: none ?? Substance Use/Abuse: Social History Substance Use Topics ??? Smoking status: Former Smoker ??? Smokeless tobacco: Never Used ??? Alcohol use No ? Other Pertinent/Service Specific Information: none ?? Health/Prescription Coverage: Primary Insurance: MEDICARE Secondary Insurance: [employer] Prescription Coverage: yes Preferred Pharmacy: [facility] ? Primary Care Provider: Devorah Epstein MD [phone] ?? Patient/Caregiver Goals of Treatment: discharge to home no anticipated need ?? Potential Needs for Transition of Care: Rehab/SNF: not anticipated Home Health:NA DME: has a cane Dialysis: no Community Resources: none involved Transportation: daughter ? Anticipated Barriers to Discharge/Special Considerations: none ?? Assessment: patient S/P ?? Plan: home no anticipated needs ? A member of the Care Management team will continue to monitor progress, follow for continuity of care and assist with transition of care planning. ?? Parvin Sim RN Pager [phone] * Plan of Care - Alley Martinez RN - 12/01/2017 1:36 AM EDT Problem: Patient Care Overview Goal: Plan of Care Review Outcome: Ongoing (Interventions Implemented as Appropriate) 12/01/17 0133 Coping/Psychosocial Plan Of Care Reviewed With patient Plan of Care Review Progress improving OUTCOME EVALUATION NOTE: OUTCOME SUMMARY: SR/ST w 1* on tele (HR 74-107), 8 seconds of SVT while ambulating in room HR 105- team notified. [place] of CP or SOB. Frequent and productive cough. Cpap worn while sleeping. Daughter at bedside. PLAN MOVING FORWARD: Echo INDIVIDUALIZED FALL PREVENTION INTERVENTIONS: Patient-specific fall risk factors per assessment: [current deficits]: Unfamiliar environment Assistance [level of assistance required for transfers and ambulation]: SBA Supervision [direct monitoring required during toileting and ADLs]: SBA Surveillance [continuous indirect monitoring]: Hourly rounding, tele CPG GOAL OUTCOME EVALUATION: ongoing documented in this encounter Plan of Treatment Upcoming Encounters Date Type Department Care Team (Late st Contact Info) Description 03/28/2024 10:00 AM EDT Hospital Encounter Non-[place] [address] Arrived documented as of this encounter Procedures Procedure Name Priority Date/Time Associated Diagnosis Comments 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 12/04/2017 12:00 AM EDT ECHO LMTD W/O CONTRAST W LMTD SPEC DOPP COLOR DOPP Routine 12/01/2017 9:27 AM EDT Pericardial effusion XR CHEST ONE VIEW Routine 11/30/2017 7:0 2 PM EDT FLUID REVIEW REPORT Routine 11/30/2017 4 :29 PM EDT AFB CULTURE Routine 11/30/2017 3:42 PM EDT BODY FLUID HOLD STAT 11/30/2017 2:10 PM EDT CHOLESTEROL LEVEL BODY FLUID STAT 11/30/2017 2:10 PM EDT CELL COUNT BODY FLUID STAT 11/30/2017 2:10 PM EDT PROTEIN LEVEL BODY FLUID STAT 11/30/2017 2:10 PM EDT LACTATE DEHYDROGENASE BODY FLUID STAT 11/30/2017 2:10 PM EDT GLUCOSE LEVEL BODY FLUID STAT 11/30/2017 2:10 PM EDT ABORH RECHECK STATUS Routine 11/30/2017 10:20 AM EDT HEMOGRAM Routine 11/30/2017 10:20 AM EDT Pericardial effusion DIFFERENTIAL, AUTOMATED Routine 11/30/2017 10:20 AM EDT Pericardial effusion ABO/RH TYPING Routine 11/30/2017 10:20 AM EDT Pericardial effusion CBC (WITH DIFF) Routine 11/30/2017 10:20 AM EDT Pericardial effusion ANTIBODY SCREEN Routine 11/30/2017 10:20 AM EDT Pericardial effusion TYPE AND SCREEN ([facility]/CGP/REYES) Routine 11/30/2017 10:20 AM EDT Pericardial effusion BASIC METABOLIC PANEL (NON-FASTING) Routine 11/30/2017 10:20 AM EDT Pericardial effusion documented in this encounter Results * ECHO LMTD W/O CONTRAST W LMTD SPEC DOPP COLOR DOPP (01/02/2018 1:36 PM EDT) Pathologist [facility] EF 80 HEARTLAB SYSTEM Anatomical Region Laterality Modality Other 01/02/2018 Narrative 01/02/2018 2:01 PM EDT Procedure: ?Transthoracic Echocardiogram Patient: ?KENDRICK VALENTINE P ?(Age): 1940(77y) Med Rec#: ? [id number] ?Sex: ?M ? Site Loc: ? [facility] [place] ?Ht / Wt: ??183(cm)/130.6(k Pt. Loc: ?Echo Lab ?BSA: ?2.49 Study Date: ?? 01/02/2018 ?Pt. Type: Outpatient Tape: ? Referring: TOMMIERACHAELLON Reading: Sergei Chambers ([id number]) Noc Engineer: Gracia Banegas Interpreting Fellow: Carol Gallardo Diagnosis: *Pericardial effusion (noninflammatory) (I31.3) BP: ? 148/66 SUMMARY: 1. The left ventricular chamber size is normal. Moderate concentric left ventricular hypertrophy is observed. There are no left ventricular segmental wall motion abnormalities. Global left ventricular systolic function appears hyperdynamic. ??Ejection fraction is estimated to be 80%. 2. [...] See remainder of report for additional findings. Findings ? : Left Ventricle: ? The left ventricular chamber size is normal. ?Moderate concentric left ventricular hypertrophy is observed. ?Global left ventricular systolic function appears hyperdynamic. Ejection fraction is estimated to be 80%. ?There are no left ventricular segmental wall motion abnormalities. Right Ventricle: ? The right ventricle is probably normal in size. ?Right ventricular global systolic function is normal. ?Pulmonary artery hypertension could not be assessed due to inadequate tricuspid regurgitation jet. ?The estimated right atrial pressure is 8 mmHg. Aortic Valve: ? The aortic valve is tricuspid. ?The aortic valve leaflets are mildly thickened. ?There is aortic annular calcification. ?There is no evidence of aortic valve stenosis. ?There is no evidence of aortic regurgitation. Mitral Valve: ? The mitral valve leaflets are mildly thickened. ?There is mitral annular calcification. ?There is no evidence of mitral stenosis. ?There is no evidence of mitral regurgitation. Tricuspid Valve: ? The tricuspid valve leaflets are morphologically normal. ?There is trace tricuspid regurgitation present. Pericardium: ? There is a small circumferential pericardial effusion. ?The pericardial effusion is fibrinous. ?A left pleural effusion is present. Aorta: ? There is mild dilatation of the ascending aorta. Venous: ? The inferior vena cava appears dilated. ?There is a greater than 50% respiratory change in the inferior vena cava dimension. Misc: ? Two-dimensional echo, limited spectral Doppler and color Doppler performed. Chambers 2D ?Value ?Units (Range) ? IVSd (2D) ? 1.7 ?cm ? LVPWd (2D) ?1.7 ?cm ? IVS:LVPW ratio (2D) 1 ?ratio ? RWT (2D) ?1 ?ratio ? RWT PW (2D) ? 1 ?ratio ? LVIDd (2D) ?3.4 ?cm ? LVIDs (2D) ?1.9 ?cm ? LVIDd (2D) index ?1.4 ?cm/m2 ? LVIDs (2D) index ?0.8 ?cm/m2 ? LV FS (2D) ?45 ? % ? EF Teichholz (2D) ?? 77 ? % ? Ascending Ao ?3.9 ?cm (2 - 3.5) ? Volumes/Mass ?Value ?Units (Range) ? LV mass (2D) ?231.1 ?g ? LV mass (2D) index ??92.8 ? g/m2 ? Diastolic/Systolic Function ?Value ?Units (Range) ? MV E-wave Vmax ?0.8 ?m/sec ? MV deceleration bnpb878.3 ?msec ? MV A-wave Vmax ?0.6 ?m/sec ? MV E:A ratio ?1.3 ?ratio ? LV septal e' Vmax ?? 0.1 ?m/sec ? LV lateral e' Vmax ??0.1 ?m/sec ? LV average e' Vmax ??0.1 ?m/sec ? LV E:e' septal ratio15.5 ? ratio ? LV E:e' lateral rati12.9 ? ratio ? LV average E:e' rati12.9 ? ratio ? Tricuspid Valve ?Value ?Units (Range) ? RAP ? 8 ?mmHg ? Wall Motion: Segment Name ?Rest ? Base-Anteroseptal ?? Normal ? Base-Anterior ? Normal ? Base-Anterolateral ??Normal ? Base-Posterolateral Normal ? Base-Inferior ? Normal ? Base-Inferoseptal ?? Normal ? Mid-Anteroseptal ?Normal ? Mid-Anterior ?Normal ? Mid-Anterolateral ?? Normal ? Mid-Posterolateral ??Normal ? Mid-Inferior ?Normal ? Mid-Inferoseptal ?Normal ? [place]-Septal ? Normal ? [place]-Anterior ? Normal ? [place]-Lateral ?Normal ? [place]-Inferior ? Normal ? [place]-Tip ?Normal ? This report has been electronically signed by: Sergei Chambers MD ? 01/02/2018 14:01:14 Images reviewed and interpretation verified [facility]ound [facility] Procedure Note Sergei Chambers MD - 01/02/2018 Procedure: Transthoracic Echocardiogram Patient: KENDRICK Thomas DOB(Age): 1940(77y) Med Rec#: [id number] Sex: M [place] [facility] [place]t / Wt: 183(cm)/130.6(k Pt. Loc: Echo Lab BSA: 2.49 Study Date: 01/02/2018 Pt. Type: Outpatient Tape: Referring: MIHAI Reading: Sergei Chambers ([id number]) Noc Engineer: Gracia Banegas Interpreting Fellow: Carol Gallardo Diagnosis: *Pericardial effusion (noninflammatory) (I31.3) BP: 148/66 SUMMARY: 1. The left ventricular chamber size is [...] See remainder of report for additional findings. Findings : Left Ventricle: The left ventricular chamber size is normal. Moderate concentric left ventricular hypertrophy is observed. Global left ventricular systolic function appears hyperdynamic. Ejection fraction is estimated to be 80%. There are no left ventricular segmental wall motion abnormalities. Right Ventricle: The right ventricle is probably normal in size. Right ventricular global systolic function is normal. Pulmonary artery hypertension could not be assessed due to inadequate tricuspid regurgitation jet. The estimated right atrial pressure is 8 mmHg. Aortic Valve: The aortic valve is tricuspid. The aortic valve leaflets are mildly thickened. There is aortic annular calcification. There is no evidence of aortic valve stenosis. There is no evidence of aortic regurgitation. Mitral Valve: The mitral valve leaflets are mildly thickened. There is mitral annular calcification. There is no evidence of mitral stenosis. There is no evidence of mitral regurgitation. Tricuspid Valve: The tricuspid valve leaflets are morphologically normal. There is trace tricuspid regurgitation present. Pericardium: There is a small circumferential pericardial effusion. The pericardial effusion is fibrinous. A left pleural effusion is present. Aorta: There is mild dilatation of the ascending aorta. Venous: The inferior vena cava appears dilated. There is a greater than 50% respiratory change in the inferior vena cava dimension. Misc: Two-dimensional echo, limited spectral Doppler and color Doppler performed. Chambers 2D Value Units (Range) IVSd (2D) 1.7 cm LVPWd (2D) 1.7 cm IVS:LVPW ratio (2D) 1 ratio RWT (2D) 1 ratio RWT PW (2D) 1 ratio LVIDd (2D) 3.4 cm LVIDs (2D) 1.9 cm LVIDd (2D) index 1.4 cm/m2 LVIDs (2D) index 0.8 cm/m2 LV FS (2D) 45 % EF Teichholz (2D) 77 % Ascending Ao 3.9 cm (2 - 3.5) Volumes/Mass Value Units (Range) LV mass (2D) 231.1 g LV mass (2D) index 92.8 g/m2 Diastolic/Systolic Function Value Units (Range) MV E-wave Vmax 0.8 m/sec MV deceleration zdca464.3 msec MV A-wave Vmax 0.6 m/sec MV E:A ratio 1.3 ratio LV septal e' Vmax 0.1 m/sec LV lateral e' Vmax 0.1 m/sec LV average e' Vmax 0.1 m/sec LV E:e' septal ratio15.5 ratio LV E:e' lateral rati12.9 ratio LV average E:e' rati12.9 ratio Tricuspid Valve Value Units (Range) RAP 8 mmHg Wall Motion: Segment Name Rest Base-Anteroseptal Normal Base-Anterior Normal Base-Anterolateral Normal Base-Posterolateral Normal Base-Inferior Normal Base-Inferoseptal Normal Mid-Anteroseptal Normal Mid-Anterior Normal Mid-Anterolateral Normal Mid-Posterolateral Normal Mid-Inferior Normal Mid-Inferoseptal Normal [place]-Septal Normal [place]-Anterior Normal [place]-Lateral Normal [place]-Inferior Normal [place]-Tip Normal This report has been electronically signed by: Sergei Chambers MD 01/02/2018 14:01:14 Images reviewed and interpretation verified [facility] Vikash Smith APRN ECHO ORDERABLES * SCAN DOC: [employer] (12/04/2017 12:00 AM EDT) Anatomical Region Laterality Modality Other Narrative 12/04/2017 12:00 AM EDT Ordered by an unspecified provider. Scanning Provider MEDIA MGR SCAN EXT O RDR/RSLT * ECHO LMTD W/O CONTRAST W LMTD SPEC DOPP COLOR DOPP (12/01/2017 9:27 AM EDT) EF 65 HEARTLAB SYSTEM Anatomical Region Laterality Modality Other 12/01/2017 Narrative 12/01/2017 10:11 AM EDT Procedure: ?Transthoracic Echocardiogram Patient: ?KENDRICK Thomas ?(Age): 1940(77y) Med Rec#: ? [id number] ?Sex: ?M ? [place] Loc: ? [facility] [place]Ht / Wt: ??182(cm)/131(kg) Pt. Loc: ?Adult Floor ? BSA: ?2.48 Study Date: ?? 12/01/2017 ?Pt. Type: Inpatient Tape: ? Referring: Pablo Govea Reading: Sam Ricci ([id number]) Noc Engineer: Jaswant Mata JASKARAN Diagnosis: *Limited post pericardiocentesis BP: ? 142/67 HR: ? 70 SUMMARY: 1. There is a moderate anterior pericardial effusion adjacent to RA/RV. There is a small posterior pericardial effusion. ??There is no evidence of tamponade. 2. Moderate concentric left ventricular hypertrophy is observed. ??There is normal global left ventricular systolic function. ??Ejection fraction is estimated to be 65%. ??There are no left ventricular segmental wall motion abnormalities. 3. The right ventricle is probably normal in size. Right ventricular global systolic function is normal. 4. When compared with prior study dated 11/30/2017, the effusion is smaller. Findings ? : Study Quality: ? Technically limited Left Ventricle: ? The left ventricle appears underfilled. ?Moderate concentric left ventricular hypertrophy is observed. ?There is no evidence of LVOT obstruction. ?No ventricular septal defect is visualized. ?There is normal global left ventricular systolic function. ??Ejection fraction is estimated to be 65%. ?There are no left ventricular segmental wall motion abnormalities. Right Ventricle: ? The right ventricle is probably normal in size. ?Right ventricular global systolic function is normal. ?There is evidence that pulmonary hypertension may be underestimated. ?The estimated pulmonary artery systolic pressure is 18 mmHg. ?The estimated right atrial pressure is 3 mmHg. Tricuspid Valve: ? The tricuspid valve leaflets are morphologically normal. ?There is trace tricuspid regurgitation present. Pericardium: ? There is a moderate anterior pericardial effusion. This is associated with RA dimpling. ??No clear RV compression noted. ?There is a small posterior pericardial effusion. ?There is no echo evidence of pericardial tamponade. Venous: ? The inferior vena cava appears normal in size. ?There is a greater than 50% respiratory change in the inferior vena cava dimension. ?Hepatic vein systolic flow is blunted. Misc: ? There is no hemodynamically significant valve disease. ?See remainder of report for additional findings. ?Two-dimensional echo, limited spectral Doppler and color Doppler performed. Tricuspid Valve ?Value ?Units (Range) ? TR Vmax ? 1.9 ?m/sec ? TR peak gradient ?14.9 ? mmHg ? RAP ? 3 ?mmHg ? RVSP ?18 ? mmHg ? This report has been electronically signed by: Sam Ricci M.D. ? 12/01/2017 10:10:49 Images reviewed and interpretation verified [facility]ound [facility] Procedure Note Sam Ricci MD - 12/01/2017 Procedure: Transthoracic Echocardiogram Patient: KENDRICK BALL(Age): 1940(77y) Med Rec#: [id number] Sex: M [place] Loc[place] [facility] [place]t / Wt: 182(cm)/131(kg) Pt. Loc: Adult Floor BSA: 2.48 Study Date: 12/01/2017 Pt. Type: Inpatient Tape: Referring: Pablo Govea Reading: Sam Ricci ([id number]) Noc Engineer: Jaswant Mata [facility] Diagnosis: *Limited post pericardiocentesis BP: 142/67 HR: 70 SUMMARY: 1. There is a moderate anterior pericardial effusion adjacent to RA/RV. There is a small posterior pericardial effusion. There is no evidence of tamponade. 2. Moderate concentric left ventricular hypertrophy is observed. There is normal global left ventricular systolic function. Ejection fraction is estimated to be 65%. There are no left ventricular segmental wall motion abnormalities. 3. The right ventricle is probably normal in size. Right ventricular global systolic function is normal. 4. When compared with prior study dated 11/30/2017, the effusion is smaller. Findings : Study Quality: Technically limited Left Ventricle: The left ventricle appears underfilled. Moderate concentric left ventricular hypertrophy is observed. There is no evidence of LVOT obstruction. No ventricular septal defect is visualized. There is normal global left ventricular systolic function. Ejection fraction is estimated to be 65%. There are no left ventricular segmental wall motion abnormalities. Right Ventricle: The right ventricle is probably normal in size. Right ventricular global systolic function is normal. There is evidence that pulmonary hypertension may be underestimated. The estimated pulmonary artery systolic pressure is 18 mmHg. The estimated right atrial pressure is 3 mmHg. Tricuspid Valve: The tricuspid valve leaflets are morphologically normal. There is trace tricuspid regurgitation present. Pericardium: There is a moderate anterior pericardial effusion. This is associated with RA dimpling. No clear RV compression noted. There is a small posterior pericardial effusion. There is no echo evidence of pericardial tamponade. Venous: The inferior vena cava appears normal in size. There is a greater than 50% respiratory change in the inferior vena cava dimension. Hepatic vein systolic flow is blunted. Misc: There is no hemodynamically significant valve disease. See remainder of report for additional findings. Two-dimensional echo, limited spectral Doppler and color Doppler performed. Tricuspid Valve Value Units (Range) TR Vmax 1.9 m/sec TR peak gradient 14.9 mmHg RAP 3 mmHg RVSP 18 mmHg This report has been electronically signed by: Sam Ricci M.D. 12/01/2017 10:10:49 Images reviewed and interpretation verified [facility] Pablo Govea MD ECHO ORDERABLES * XR Chest PA or AP 1 view (11/30/2017 7:02 PM EDT) Anatomical Region Laterality Modality Chest N/A Digital Radiogra phy Impressions 11/30/2017 8:08 PM EDT Decreased cardiac mediastinal silhouette Narrative 11/30/2017 8:08 PM EDT EXAMINATION: XR CHEST PA OR AP 1 VIEW CLINICAL HISTORY: Post-pericardial effusion drainage TECHNIQUE: PA COMPARISON: 11/29/2017 FINDINGS: Slight decrease in the cardiac silhouette status post pericardiocentesis. No air in the pericardium. The heart size now appears normal. Lungs are clear. No pulmonary edema. Postsurgical changes in mediastinum Procedure Note Priscilla Box MD - 11/30/2017 EXAMINATION: XR CHEST PA OR AP 1 VIEW CLINICAL HISTORY: Post-pericardial effusion drainage TECHNIQUE: PA COMPARISON: 11/29/2017 FINDINGS: Slight decrease in the cardiac silhouette status post pericardiocentesis.No air in the pericardium. The heart size now appears normal. Lungs are clear.No pulmonary edema. Postsurgical changes in mediastinum IMPRESSION Decreased cardiac mediastinal silhouette Pablo Govea MD IMG DX ORDERABLES * Fluid Review Report (11/30/2017 4:29 PM EDT) Fluid Review Report [id number] ? Location: [facility]; [facility]; The signing pathologist has (i) examined the relevant preparation(s) for the specimen(s) and (ii) rendered or confirmed the diagnosis(es). . ? Fluid Review DIAGNOSIS Atypical lymphoid infiltrate seen. Electronically signed by: ??Vivian DORSEY, Miguel A Verified: ??12/01/2017 ?Hematopathologist Performed at: ??-[facility] [place] Dept. of Pathology, [place], [place] DISCUSSION An atypical appearing lymphoid infiltrate is noted, as described below. This may represent a reactive process, however flow cytometry is required to rule out the presence of a lymphoproliferative disorder. ADDITIONAL STUDIES Microscopic Description: ?? WBC/ul: ?2089 ?2089 cells counted by automated analyzer. ?# ?? PMN: ?? 22 ?? MN: ?2066 ?? Other: 0 Lymphocytes predominate the cellularity, a large subset of which display slightly enlarged nuclei, somewhat dispersed chromatin, and inconspicuous to prominent nucleoli. Polymorphonuclear cells (PMN) include neutrophils, eosinophils and basophils. Mononuclear cells (MN) include mesothelial cells, lymphocytes, and monocytes. Abnormalities, if any, are described above. CLINICAL INFORMATION Specimen: ? pericardial fluid Clinical Diagnosis: ? 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 Indication for Study: ?? Diagnostic/therapeutic . [facility] 11/30/2017 4:29 PM EDT Gerald Arroyo MD PATHOLOGY/CYTOLOGY O RDERABLES Performing Organization Address [facility] de Phone Number [facility] [place] [address] * AFB culture (11/30/2017 3:42 PM EDT) Acid Fast Bacilli Culture No Acid Fast Bacilli isolated [facility] Acid Fast Stain No Acid Fast Bacilli seen [facility] Pericardial fluid specimen (specimen) 11/30/2017 3:42 PM EDT 11/30/2017 3:42 PM EDT Narrative Resulting Agency Comment Spec In Lab Pablo Govea MD MICROBIOLOGY - GENE RAL ORDERABLES Performing Organization Address [facility] Co de Phone Number [facility] [place] [address] * Body Fluid HOLD (11/30/2017 2:10 PM EDT) Hold BF Type Sample in lab. [facility] Body fluid specimen (specimen) Other / Unknown 11/30/2017 2:10 PM EDT 11/30/2017 3:45 PM EDT Pablo Govea MD BODY FLUIDS AND STO OLS ORDERABLES Performing Organization Address [facility] Co de Phone Number [facility] [place] [address] * Cholesterol Level Body Fluid Pericardial Fluid (11/30/2017 2:10 PM EDT) Chol, BF 77 mg/dL [facility] Comment: No reference range is available for the specimen type submitted. ??The performance of this assay for the submitted type has not been validated and results should be interpreted accordingly and with regard to the patient's clinical status. Chol, BF Type Pericardial fl M [facility] Pericardial fluid specimen (specimen) 11/30/2017 2:10 PM EDT 11/30/2017 3:28 PM EDT Narrative Resulting Agency Comment Spec In Lab Pablo Govea MD BODY FLUIDS AND STO OLS ORDERABLES Performing Organization Address [facility] Phone Number [facility] [place] [address] * Lactate Dehydrogenase Body Fluid Pericardial Fluid (11/30/2017 2:10 PM EDT) LDH BF 247 unit/L [facility] Comment: No reference range is available for the specimen type submitted. ??The performance of this assay for the submitted type has not been validated and results should be interpreted accordingly and with regard to the patient's clinical status. LDH, BF Type Pericardial fl MA [facility] Pericardial fluid specimen (specimen) 11/30/2017 2:10 PM EDT 11/30/2017 3:28 PM EDT Narrative Resulting Agency Comment Spec In Lab Pablo Govea MD BODY FLUIDS AND STO OLS ORDERABLES Performing Organization Address [facility] Co de Phone Number [facility] [place] [address] * Protein Level Body Fluid Pericardial Fluid (11/30/2017 2:10 PM EDT) Protein, BF 5.3 gm/dL [facility] Comment: There is no reference range available for the specimen type submitted. For determination of transudative vs. exudative pleural effusions: Transudates: Pleural Total Protein/Serum Total Protein <0.5 g/dL. Exudates: Pleural Total Protein/Serum Total Protein >0.5 g/dL. Protein BF Type Pericardial fl [facility] Pericardial fluid specimen (specimen) 11/30/2017 2:10 PM EDT 11/30/2017 3:28 PM EDT Narrative Resulting Agency Comment Spec In Lab Pablo Govea MD BODY FLUIDS AND STO OLS ORDERABLES Performing Organization Address [facility] Co de Phone Number [facility] [place] [address] * Glucose Level Body Fluid Pericardial Fluid (11/30/2017 2:10 PM EDT) Glucose, BF 117 mg/dL [facility] Comment: No reference range is available for the specimen type submitted. ??The performance of this assay for the submitted type has not been validated and results should be interpreted accordingly and with regard to the patient's clinical status. Gluc, BF Type Pericardial fl M [facility] Pericardial fluid specimen (specimen) 11/30/2017 2:10 PM EDT 11/30/2017 3:28 PM EDT Narrative Resulting Agency Comment Spec In Lab Pablo Govea MD BODY FLUIDS AND STO OLS ORDERABLES Performing Organization Address [facility] Co de Phone Number [facility] [place] [address] * Cell Count Body Fluid Pericardial Fluid (11/30/2017 2:10 PM EDT) Spec Type BF Pericardial Fl MA [facility] Color BF Red [facility] Appearance BF Cloudy [facility] WBC BF Ct 2,089 /mcl [facility] Comment: Guideline listed below apply to all body fluids. Differentials on BAL specimens are performed by the Cytology lab section. When Body Fluid WBC count is greater than Zero, a smear is made and scanned. All scan information is correlated with numeric results prior to being released to patients chart. Polymorph % 1 % [facility] Comment: Polymorphonuclear cell percent and absolute values may contain Neutrophils, Eosinophils, and Basophils. Body fluid smear will be scanned manually for concordance. Mononuc % 99 % [facility] Comment: Mononuclear cell percent and absolute values may contain Lymphocytes and Monocytes. Body fluid smear will be scanned manually for concordance. Polymorph BF ABS 22 /[facility] Comment: Polymorphonuclear cell percent and absolute values may contain Neutrophils, Eosinophils, and Basophils. Body fluid smear will be scanned manually for concordance. Mononuc ABS 2,067 /[facility] Comment: Mononuclear cell percent and absolute values may contain Lymphocytes and Monocytes. Body fluid smear will be scanned manually for concordance. Pericardial fluid specimen (specimen) 11/30/2017 2:10 PM EDT 11/30/2017 3:28 PM EDT Narrative Resulting Agency Comment Spec In Lab Pablo Govea MD BODY FLUIDS AND STO OLS ORDERABLES [facility] [place] [address] * ABORH Recheck Status (11/30/2017 10:20 AM EDT) ABORH Type Recheck Completed [facility] Blood specimen (specimen) 11/30/2017 10:20 AM EDT 11/30/2017 10:31 AM EDT Narrative Resulting Agency Comment Spec In Lab David YE BLOOD B[facility] LAB O RDERABLES [facility] [place] [address] * Antibody screen (11/30/2017 10:20 AM EDT) Ab Screen Interp Negative [facility] Expires at [id number] on: 12/03/2017 [facility] Blood specimen (specimen) 11/30/2017 10:20 AM EDT 11/30/2017 10:31 AM EDT Narrative Resulting Agency Comment Spec In Lab David YE BLOOD BANK LAB O RDERABLES [facility] [place] [address] * ABO/Rh Typing (11/30/2017 10:20 AM EDT) ABORH Type B Pos [facility] Blood specimen (specimen) 11/30/2017 10:20 AM EDT 11/30/2017 10:31 AM EDT Narrative Resulting Agency Comment Spec In Lab David YE BLOOD B[facility] LAB O RDERABLES Performing Organization Address City/[facility]/ZIP Co de Phone Number [facility] [place] [address] * (ABNORMAL) Differential, Automated (11/30/2017 10:20 AM EDT) Neutrophils % 73.4 % [facility] Neutr Abs (ANC) 4.30 1.70 - 6.10 x10(3)/[facility] LABORATORY Lymphocytes % 13.3 % [facility] Lymphocytes Abs 0.8(L) 0.9 - 3.2 x10(3)/[facility] LABORATORY Monocytes % 9.2 % [facility] Monocyte Abs 0.5 0.3 - 0.9 x10(3)/ L [facility] Eosinophils % 3.1 % [facility] Eosinophils Abs 0.2 0.0 - 0.4 x10(3)/[facility] LABORATORY Basophils % 0.5 % [facility] Basophils Abs 0.0 0.0 - 0.1 x10(3)/[facility] LABOR[facility]ORY Immature Gran % 0.50 % [facility] Comment: Immature granulocytes(IG's)percentage and absolute count will include metamyelocytes, myelocytes, and promyelocytes. Blood smears from CBCs yielding IG's will be scanned manually for concordance. If this scan disagrees with the automated IG or if promyelocytes are noted, a manual differential will be performed. Steph Gran Abs 0.03 0.00 - 0.04 x10(3)/mc L [facility] Blood specimen (specimen) 11/30/2017 10:20 AM EDT 11/30/2017 10:31 AM EDT Narrative Resulting Agency Comment Spec In Lab David YE HEMATOLOGY ORDER KARENA [facility] [place] [address] * (ABNORMAL) Hemogram (11/30/2017 10:20 AM EDT) WBC 5.9 4.0 - 9.5 x10(3)/[facility] LAB[facility]ATORY RBC 4.43(L) 4.58 - 5.54 x10(6)/[facility] Hemoglobin 11.4(L) 13.7 - 16.5 gm/dL [facility] Hematocrit 36.8(L) 40.5 - 48.5 % [facility] MCV 83.1 82.9 - 93.1 fL [facility] MCH 25.7(L) 27.5 - 32.1 pg [facility] MCHC 31.0(L) 32.0 - 35.7 gm/dL [facility] Platelets 179 145 - 357 x10(3)/[facility] LABORATORY RDWSD 41.1 36.0 - 45.0 [facility] LABORATORY RDWCV 13.6 11.4 - 13.8 % [facility] MPV 9.5 7.6 - 12.9 fL [facility] nRBC % Auto 0.0 % [facility] nRBC Abs Auto 0.000 0.000 - 0.000 x10(3)/mcL [facility] Blood specimen (specimen) 11/30/2017 10:20 AM EDT 11/30/2017 10:31 AM EDT Narrative Resulting Agency Comment Spec In Lab David YE HEMATOLOGY ORDER KARENA [facility] [place] [address] * (ABNORMAL) Basic Metabolic Panel (non-fasting) (11/30/2017 10:20 AM EDT) Glucose Lvl 128 65 - 199 mg/dL [facility] Comment:Diabetes: >=200 mg/d L plus symptoms BUN 17 10 - 20 mg/dL [facility] Creatinine 1.29 0.80 - 1.50 mg/dL [facility] Sodium 142 135 - 145 mmol/L [facility] Potassium 3.7 3.5 - 5.0 mmol/L [facility] Comment: Please note: ??Patients with WBC >100,000 may have falsely elevated Potassium levels. ??For accurate Potassium quantification in these patients send serum separator tube (gold top) for subsequent determinations. ??Contact the Clinical Chemistry Laboratory if there are any questions. Chloride 103 98 - 107 mmol/L [facility] CO2 26 22 - 31 mmol/L [facility] Anion Gap 13 5 - 15 mmol/L [facility] Calcium 10.0 8.5 - 10.5 mg/dL [facility] Estimated GFR 54(L) >=60 [facility] Comment: The reported eGFR should be multiplied by 1.2 for patients. The MDRD is not an appropriate measure of renal function for patients with body mass extremes or in patients with acute kidney failure. http://[employer]/DHnkdep http://[employer]/DHMCnkf Blood specimen (specimen) 11/30/2017 10:20 AM EDT 11/30/2017 10:31 AM EDT Narrative Resulting Agency Comment Spec In Lab Pablo Govea MD CHEMISTRY ORDERABLE S [facility] [place] [address] documented in this encounter Visit Diagnoses Diagnosis Pericardial effusion Unspecified disease of pericardium Pericardial effusion- Primary Unspecified disease of pericardium Pericardial effusion Unspecified disease of pericardium Pericardial effusion Unspecified disease of pericardium documented in this encounter Admitting Diagnoses Diagnosis Pericardial effusion Unspecified disease of pericardium documented in this encounter Administered Medications Inactive Administered Medications - up to 3 most recent administrations Medication Order MAR Action Action Date Dose Rate Site aspirin EC tablet 81 mg 81 mg, Oral, DAILY, First dose on Mon12/01/17 at 0900, Until Discontinued, Routine Given 12/01/2017 9:50 AM EDT 81 mg chlorthalidone (HYGROTEN) tablet 25 mg 25 mg, Oral, DAILY, First dose on Mon12/01/17 at 0900, Until Discontinued, Routine Given 12/01/2017 9:50 AM EDT 25 mg fentaNYL 50 mcg/mL multi-dose injection ONCE PRN, Starting on Kimberly 11/30/17 at 1321, Until Kimberly 11/30/17 at 1413, Cath (Intra-Procedure), Routine Given 11/30/2017 1:21 PM EDT 25 mcg lidocaine (XYLOCAINE) 10 mg/mL (1 %) injection ONCE PRN, Starting on Kimberly 11/30/17 at 1235, Until Kimberly 11/30/17 at 1413, Cath (Intra-Procedure), Routine Given 11/30/2017 12:35 PM EDT 10 mLs metoprolol tartrate (LOPRESSOR) tablet 25 mg 25 mg, Oral, EVERY 8 HOURS, First dose (after last modification) on Kimberly 11/30/17 at 1630, Until Discontinued, Routine Given 12/01/2017 9:50 AM EDT 25 mg Given 11/30/2017 11:53 PM EDT 25 mg Given 11/30/2017 4:37 PM EDT 25 mg midazolam (PF) (VERSED) 1 mg/mL multi-dose injection ONCE PRN, Starting on Kimberly 11/30/17 at 1321, Until Kimberly 18 at 1413, Cath (Intra-Procedure), Routine Given 11/30/2017 1:21 PM EDT 1 mg ondansetron (ZOFRAN) injection 4-8 mg 4-8 mg, Intravenous, EVERY 8 HOURS PRN, Starting on Mon11/30/17 at 1600, Until Mon12/01/17 at 1637, Nausea, Start with 4mg and if ineffective in 30 minutes, give an additional 4mg If multiple antiemetics are ordered, give ondansetron first. ondansetron (ZOFRAN) tablet 4-8 mg 4-8 mg, Oral, EVERY 8 HOURS PRN, Starting on Mon11/30/17 at 1600, Until Mon12/01/17 at 1637, Nausea, Vomiting, If multiple antiemetics are ordered, use ondansetron first. PO Preferred. If patient unable to take PO, may give IV if ordered. Start with 4mg and if ineffective in 45 minutes, give an additional 4mg. If unable to take PO, may give IV., Routine predniSONE (DELTASONE) tablet 20 mg 20 mg, Oral, DAILY, First dose on Mon12/01/17 at 0900, Until Discontinued, Routine Given 12/01/2017 9:00 AM EDT 20 mg rosuvastatin (CRESTOR) tablet 20 mg 20 mg, Oral, EVERY EVENING, First dose on Mon11/30/17 at 1700, Until Discontinued, Routine Given 11/30/2017 4:41 PM EDT 20 mg senna-docusate (PERICOLACE) 8.6-50 mg per tablet 2 tablet 2 tablet, Oral, DAILY, First dose on Mon11/30/17 at 1630, Until Discontinued, Routine Given 11/30/2017 4:38 PM EDT 2 tablets sodium chloride 0.9 % flush 5 mL 5 mL, Intravenous, 2 TIMES DAILY, First dose on Mon11/30/17 at 2100, Until Discontinued, Routine Given 12/01/2017 9:51 AM EDT 5 mLs Given 11/30/2017 9:00 PM EDT 5 mLs documented in this encounter Active and Recently Administered Medications Times are shown in EDT. Scheduled Medication Order 11/29/2017 11/30/2017 12/01/2017 aspirin EC tablet 81 mg 81 mg, Oral, DAILY, First dose on Mon12/01/17 at 0900, Until Discontinued, Routine 0950 (Given - Provid er: Mara Moon RN) chlorthalidone (HYGROTEN) tablet 25 mg 25 mg, Oral, DAILY, First dose on Mon12/01/17 at 0900, Until Discontinued, Routine 0950 (Given - Provid er: Mara Moon RN) metoprolol tartrate (LOPRESSOR) tablet 25 mg 25 mg, Oral, EVERY 8 HOURS, First dose (after last modification) on Mon11/30/17 at 1630, Until Discontinued, Routine 1637 (Given - Provider: Sherlyn Tamayo RN)2353 (Given - Provider: Alley Martinez RN) 0950 (Given - Provider: Mara Moon RN) predniSONE (DELTASONE) tablet 20 mg 20 mg, Oral, DAILY, First dose on Mon12/01/17 at 0900, Until Discontinued, Routine 0900 (Given - Provid er: Mara Moon RN) predniSONE (DELTASONE) tablet 40 mg (COMPLETED) 40 mg, Oral, ONCE, 1 dose, On Mon11/30/17 at 1630, Routine 1641 (Given - Provider: Sherlyn Tamayo RN) rosuvastatin (CRESTOR) tablet 20 mg 20 mg, Oral, EVERY EVENING, First dose on Mon11/30/17 at 1700, Until Discontinued, Routine 1641 (Given - Provider: Sherlyn Tamayo, LENY) senna-docusate (PERICOLACE) 8.6-50 mg per tablet 2 tablet 2 tablet, Oral, DAILY, First dose on Mon11/30/17 at 1630, Until Discontinued, Routine 1638 (Given - Provider: Sherlyn Tamayo RN) 0900 (Not Given - Provider: Mara Moon RN - Reason: Patient/family refused) sodium chloride 0.9 % flush 5 mL 5 mL, Intravenous, 2 TIMES DAILY, First dose on Mon11/30/17 at 2100, Until Discontinued, Routine 2100 (Given - Provider: Alley Martinez RN) 0951 (Given - Provider: Mara Moon RN) PRN Medication Order 11/29/2017 11/30/2017 12/01/2017 acetaminophen (TYLENOL) tablet 1,000 mg 1,000 mg, Oral, EVERY 6 HOURS PRN, Starting on Kimberly 11/30/17 at 1600, Until Mon12/01/17 at 1637, Pain, Maximum dose of acetaminophen is 4000 mg from all sources in 24 hours., Routine fentaNYL 50 mcg/mL multi-dose injection (CANCELED) ONCE PRN, Starting on Kimberly 11/30/17 at 1321, Until Kimberly 11/30/17 at 1413, Cath (Intra-Procedure), Routine 1321 (Given - Provider: Edgar Thorpe RN) lidocaine (XYLOCAINE) 10 mg/mL (1 %) injection 3 mg 3 mg (0.3 mL), Subcutaneous, ONCE PRN, 1 dose, Starting on Kimberly 11/30/17 at 1600, Until Mon12/01/17 at 1637, for discomfort with PIV insertion, Routine lidocaine (XYLOCAINE) 10 mg/mL (1 %) injection (CANCELED) ONCE PRN, Starting on Kimberly 11/30/17 at 1235, Until Kimberly 11/30/17 at 1413, Cath (Intra-Procedure), Routine 1235 (Given - Provider: Wily Arroyo MD - Comment: right groin) midazolam (PF) (VERSED) 1 mg/mL multi-dose injection (CANCELED) ONCE PRN, Starting on Kimberly 11/30/17 at 1321, Until Kimberly 11/30/17 at 1413, Cath (Intra-Procedure), Routine 1321 (Given - Provider: Edgar Thorpe RN) ondansetron (ZOFRAN) injection 4-8 mg(Linked Group 1) 4-8 mg, Intravenous, EVERY 8 HOURS PRN, Starting on Kimberly 11/30/17 at 1600, Until Mon12/01/17 at 1637, Nausea, Start with 4mg and if ineffective in 30 minutes, give an additional 4mg If multiple antiemetics are ordered, give ondansetron first. ondansetron (ZOFRAN) tablet 4-8 mg(Linked Group 1) 4-8 mg, Oral, EVERY 8 HOURS PRN, Starting on Mon11/30/17 at 1600, Until Mon12/01/17 at 1637, Nausea, Vomiting, If multiple antiemetics are ordered, use ondansetron first. PO Preferred. If patient unable to take PO, may give IV if ordered. Start with 4mg and if ineffective in 45 minutes, give an additional 4mg. If unable to take PO, may give IV., Routine sodium chloride 0.9 % flush 5-20 mL 5-20 mL, Intravenous, EVERY 1 MIN PRN, Starting on Kimberly 11/30/17 at 1600, Until Mon12/01/17 at 1637, flush, Flush pertains to all indwelling lines. Flush per protocol found in the job aid using the link provided on this medication record., Routine Linked Groups Order Group 1: ondansetron (ZOFRAN) tablet 4-8 mgJump to med 4-8 mg, Oral, EVERY 8 HOURS PRN, Starting on Kimberly 11/30/17 at 1600, Until 12/01/17 at 1637, Nausea, Vomiting, If multiple antiemetics are ordered, use ondansetron first. PO Preferred. If patient unable to take PO, may give IV if ordered. Start with 4mg and if ineffective in 45 minutes, give an additional 4mg. If unable to take PO, may give IV., Routine Or ondansetron (ZOFRAN) injection 4-8 mgJump to med 4-8 mg, Intravenous, EVERY 8 HOURS PRN, Starting on Kimberly 11/30/17 at 1600, Until 12/01/17 at 1637, Nausea, Start with 4mg and if ineffective in 30 minutes, give an additional 4mg If multiple antiemetics are ordered, give ondansetron first. documented in this encounter Care Teams Watch Parts Inspector Relationship Specialty Start Date End Date Devorah Epstein MD [address] [place] [address] PCP - General Family Medicine 09/01/17 documented as of this encounter
--- OUTSIDE RECORDS SUMMARY | 2024-01-22 03:01 | XMS_ITS | Encounter Summary ---
[facility] [place] [address] Care Team Providers Care Casino Supervisor Name Role Phone Devorah Epstein MD Primary Care Provider [phone] Reason for Visit * Auth/Cert Specialty Diagnoses / Procedures Referred By Binh taylor Referred To Contact Diagnoses Pericardial effusion Pericardial effusion [I31.3] n/a Procedures CARDIAC CATHETERIZATION Referral ID Status Reason Start Date Expiration Date Visits Re quested Visits Authorized [id number] 1 1 Encounter Details Date Type Department Care Team (Latest Contact Info) Description 11/30/2017 9:00 AM EDT - 11/30/2017 10:00 AM EDT Hospital Encounter Non-[place] [id number] Pablo Govea MD [facility] [place] [address] Discharge Disposition: Home Social History Tobacco Use [...] for Pain. 30 tablet 1 09/15/2017 12/02/2023 meTOPROLOL tartrate (LOPRESSOR) 25 mg Tablet Take 1 tablet by mouth every 8 hours. 180 tablet 3 09/15/2017 12/01/2017 chlorthalidone (HYGROTEN) 25 mg Tablet Take 25 mg by mouth daily. 12/02/2023 selenium 50 mcg Tablet Take 200 mcg by mouth. 12/02/2023 lactobacillus rhamnosus, GG, (CULTURELLE) 10 billion cell Capsule Take 1 capsule by mouth daily. 12/02/2023 cholecalciferol, Vitamin D3, 1,000 unit Capsule Take by mouth. 12/02/2023 glucosamine sulfate 500 mg Tablet Take 1,000 mg by mouth. 12/02/2023 documented as of this encounter Plan of Treatment Upcoming Encounters Date Type Department Care Team (Late st Contact Info) Description 03/28/2024 10:00 AM EDT Hospital Encounter Non[place] [address] Arrived documented as of this encounter Procedures Procedure Name Priority Date/Time Associated Diagnosis Comments ECHO COMPLETE STAT 11/30/2017 9:50 AM EDT Pericardial effusion documented in this encounter Results * ECHO COMPLETE (11/30/2017 9:50 AM EDT) Anatomical Region Laterality Modality Other 11/30/2017 Narrative 11/30/2017 10:33 AM EDT Procedure: ?Transthoracic Echocardiogram Patient: ?KENDRICK VALENTINE P ?(Age): 1940(77y) Med Rec#: ? [id number] ?Sex: ?M ? Site Loc: ? [facility] ?Ht / Wt: ??183(cm)/131(kg) Pt. Loc: ?Adult Floor ? BSA: ?2.49 Study Date: ?? 11/30/2017 ?Pt. Type: Outpatient Tape: ? Referring: CHENTORYCKIDANIELJ Reading: Grant Rubin ([id number]) Public Health Physician: Grant Hoffman Public Health Physician: Shai Louann Diagnosis: *ICD-10-PCS Pericardial effusion (noninflammatory) (I31.3) BP: ? 138/90 SUMMARY: 1. Technically limited 2. The left ventricle appears underfilled. Moderate concentric left ventricular hypertrophy is observed. ??There is normal global left ventricular systolic function. ??The quantitative left ventricular ejection fraction by biplane Reilly's method is 70%. 3. The right ventricle is probably normal in size. ??Right ventricular global systolic function is normal. 4. There is a moderate circumferential pericardial effusion. This is associated with RA dimpling. ??No clear RV compression noted. ??The IVC looks dilated. ??No clear compression noted with inspiration. Findings ? : Study Quality: ? Technically limited Left Ventricle: ? The left ventricle appears underfilled. ?Moderate concentric left ventricular hypertrophy is observed. ?There is no evidence of LVOT obstruction. ?No ventricular septal defect is visualized. ?There is normal global left ventricular systolic function. ?The quantitative left ventricular ejection fraction by biplane Reilly's method is 70%. ?There are no left ventricular segmental wall motion abnormalities. Left Atrium: ? The left atrium is probably normal in size. Right Ventricle: ? The right ventricle is probably normal in size. ?Right ventricular global systolic function is normal. ?Pulmonary artery hypertension could not be assessed due to inadequate tricuspid regurgitation jet. Right Atrium: ? The right atrium is normal in size. Aortic Valve: ? The aortic valve is not well visualized. ?The aortic valve is tricuspid. ?Systolic excursion of the aortic valve is normal. ?There is no evidence of aortic valve stenosis. ?There is no evidence of aortic regurgitation. Mitral Valve: ? The mitral valve leaflets are mildly thickened. ?There is trace mitral regurgitation present. Tricuspid Valve: ? The tricuspid valve leaflets are morphologically normal. ?There is trace tricuspid regurgitation present. Pulmonic Valve: ? The pulmonic valve appears normal in structure and function. Pericardium: ? There is a moderate circumferential pericardial effusion. This is associated with RA dimpling. ??No clear RV compression noted. Aorta: ? There is mild dilatation of the aortic root. 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 Pulmonary Artery: ? The main pulmonary artery appears normal. Venous: ? The inferior vena cava appears normal in size. ?There is less than 50% respiratory change in the inferior vena cava dimension consistent with elevated right atrial pressure. ?Hepatic vein systolic flow is blunted. Misc: ? Two-dimensional echo, spectral Doppler and color Doppler performed. Chambers 2D ?Value ?Units (Range) ? IVSd (2D) ? 1.6 ?cm ? LVPWd (2D) ?1.5 ?cm ? LVIDd (2D) ?3.7 ?cm ? LVIDs (2D) ?1.8 ?cm ? LV FS (2D) ?50.9 ? % ? EF Teichholz (2D) ?? 82.9 ? % ? Ao root diameter (2D4 ?cm (2.1 - 3.6) ? Ascending Ao ?4.6 ?cm (2 - 3.5) ? Volumes/Mass ?Value ?Units (Range) ? LV ESV SP 4CH (MOD) 21.2 ? ml ? LV ESV SP 2CH (MOD) 25.6 ? ml ? LV EDV BP ? 77.7 ? ml ? LV ESV BP ? 23 ? ml ? BP EF (MOD) ? 70.4 ? % ? Aortic Valve ?Value ?Units (Range) ? LVOT diameter ? 2.5 ?cm ? This report has been electronically signed by: Grant Rubin M.D. ? 11/30/2017 10:32:38 Images reviewed and interpretation verified [facility] Procedure Note Grant Rubin MD - 11/30/2017 Procedure: Transthoracic Echocardiogram Patient: KENDRICK Thomas (Age): 1940(77y) Med Rec#: [id number] Sex: M Site Loc: [facility] Ht / Wt: 183(cm)/131(kg) Pt. Loc: Adult Floor BSA: 2.49 Study Date: 11/30/2017 Pt. Type: Outpatient Tape: Referring: CHENTORYCKIDANIELJ Reading: Grant Rubin ([id number]) Public Health Physician: Grant Hoffman Public Health Physician: Louann Gibbons Diagnosis: *ICD-10-PCS Pericardial effusion (noninflammatory) (I31.3) BP: 138/90 SUMMARY: 1. Technically limited 2. The left ventricle appears underfilled. Moderate concentric left ventricular hypertrophy is observed. There is normal global left ventricular systolic function. The quantitative left ventricular ejection fraction by biplane Reilly's method is 70%. 3. The right ventricle is probably normal in size. Right ventricular global systolic function is normal. 4. There is a moderate circumferential pericardial effusion. This is associated with RA dimpling. No clear RV compression noted. The IVC looks dilated. No clear compression noted with inspiration. Findings : Study Quality: Technically limited Left Ventricle: The left ventricle appears underfilled. Moderate concentric left ventricular hypertrophy is observed. There is no evidence of LVOT obstruction. No ventricular septal defect is visualized. There is normal global left ventricular systolic function. The quantitative left ventricular ejection fraction by biplane Reilly's method is 70%. There are no left ventricular segmental wall motion abnormalities. Left Atrium: The left atrium is probably normal in size. Right Ventricle: The right ventricle is probably normal in size. Right ventricular global systolic function is normal. Pulmonary artery hypertension could not be assessed due to inadequate tricuspid regurgitation jet. Right Atrium: The right atrium is normal in size. Aortic Valve: The aortic valve is not well visualized. The aortic valve is tricuspid. Systolic excursion of the aortic valve is normal. There is no evidence of aortic valve stenosis. There is no evidence of aortic regurgitation. Mitral Valve: The mitral valve leaflets are mildly thickened. There is trace mitral regurgitation present. Tricuspid Valve: The tricuspid valve leaflets are morphologically normal. There is trace tricuspid regurgitation present. Pulmonic Valve: The pulmonic valve appears normal in structure and function. Pericardium: There is a moderate circumferential pericardial effusion. This is associated with RA dimpling. No clear RV compression noted. Aorta: There is mild dilatation of the aortic root. 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 Pulmonary Artery: The main pulmonary artery appears normal. Venous: The inferior vena cava appears normal in size. There is less than 50% respiratory change in the inferior vena cava dimension consistent with elevated right atrial pressure. Hepatic vein systolic flow is blunted. Misc: Two-dimensional echo, spectral Doppler and color Doppler performed. Chambers 2D Value Units (Range) IVSd (2D) 1.6 cm LVPWd (2D) 1.5 cm LVIDd (2D) 3.7 cm LVIDs (2D) 1.8 cm LV FS (2D) 50.9 % EF Teichholz (2D) 82.9 % Ao root diameter (2D4 cm (2.1 - 3.6) Ascending Ao 4.6 cm (2 - 3.5) Volumes/Mass Value Units (Range) LV ESV SP 4CH (MOD) 21.2 ml LV ESV SP 2CH (MOD) 25.6 ml LV EDV BP 77.7 ml LV ESV BP 23 ml BP EF (MOD) 70.4 % Aortic Valve Value Units (Range) LVOT diameter 2.5 cm This report has been electronically signed by: Grant Rubin M.D. 11/30/2017 10:32:38 Images reviewed and interpretation verified [facility] Pablo Govea MD ECHO ORDERABLES documented in this encounter Visit Diagnoses Not on filedocumented in this encounter Care Teams Casino Supervisor Relationship Specialty Start Date End Date Devorah Epstein MD [address] [facility] [address] [place] [address] PCP - General Family Medicine 09/01/17 documented as of this encounter
--- OUTSIDE RECORDS SUMMARY | 2024-01-22 03:01 | XMS_ITS | Encounter Summary ---
[facility] [place] [address] Care Team Providers Care Powertrain Control Systems Engineer Name Role Phone Devorah Epstein MD Primary Care Provider [phone] Reason for Visit * Auth/Cert (Routine) Specialty Diagnoses / Procedures Referred By Binh taylor Referred To Contact Diagnoses Atrial fib/flutter, transient bradycardia Albert Oreilly MD [facility] [place] [address] [facility] Referral ID Status Reason Start Date Expiration Date Visits Re quested Visits Authorized [id number] 1 1 Encounter Details Date Type Department Care Team (Late st Contact Info) Description 12/05/2023 3:00 PM EDT - 12/05/2023 5:00 PM EDT Surgery [place] [address] Heriberto Geronimo MD [facility] [place] [address] ELECTROPHYSIOLOGY PROCEDURE Social History Tobacco Use Types Packs/Day Years Used Date Smoking Tobacco: Former Smokeless Tobacco: Never Alcohol Use Standard Drinks/Week Comments No 0 (1 standard drink = 0.6 oz pur e alcohol) [facility] Utilities Answer Date Recorded In the past 12 months has [employer] electric, gas, oil, or water [employer] threatened to shut off services in your [...] any time in the past 12 m [facility], were you homeless or living in [...] Sign Reading Time Taken Comments Blood Pressure 153/73 12/05/2023 11:48 AM EDT Pulse 59 12/05/2023 11:48 AM EDT Temperature 36.6 ??C (97.9 ??F) 12/05/2023 1 1:48 AM EDT Respiratory Rate 18 12/05/2023 11:4 8 AM EDT Oxygen Saturation 96% 12/05/2023 11: 48 AM EDT Inhaled Oxygen Concentration - - Weight 125.8 kg (277 lb 6.4 oz) 12/05/2023 6:00 AM EDT Height 182.9 cm (6') [...] HTN, HLD, A- fib, presented initially to [facility] for one month of episodic dyspnea on exertion and epigastric discomfort and now being transferred to [facility] for symptomatic a- fib with slow ventricular [...] Non-Hospital Problems Diagnosis Pericardial effusion Atherosclerosis of [place] coronary artery of [place] heart with angina pectoris History of Presentation (per 12/02/2023 Admission H&P): Patient reports a month of episodic dyspnea on exertion and epigastric discomfort. Daughter checkedpulse at home and it was in the 30s, which prompted presentation to [facility]. BP 130/80s, remains in the 30s without fluctuation. Troponin elevated at 82, in August was 71, priorto that was 61, described as stably/chronically mildly elevated. Follows with Dr. Hernandez at [facility] Cardiology. No known tick bites [...] up appointment with the cardiology department at [facility]. If you do not receive a call to schedule this, please call [facility] main line and ask for [facility] cardiology scheduling desk in order to set this appointment. You will additionally have follow up with the EP (Electrophysiology) team for your pacemaker. Your Inpatient Doctor: MD Albert Kendrick MD Aditya Sharma, MD Your Primary Care Provider: Devorah Epstein MD [phone] For questions regarding this document or issues relating to this hospitalization on the Medical Service, please contact your inpatient physician through the [facility] Clinical Lab Scientist . Issues afterhours and on weekends will [...] this product, please call the office at [phone]. Future Appointments and Orders Future Orders Complete By Expires Referral to Cardiology [REF12 Custom] As directed Process Instructions: If no progress note charted, please enter Clinical details in comments. Scheduling Instructions: Questions: My question or request is: 83 yo w/ hx of AF & CHB s/p micra placement Provider Contact Information: Devorah Epstein MD [address] / [facility] [address] Discharge References/Attachments: Discharge References/Attachments None documented in [...] this product, please call the office at [phone]. * Patient Instructions* Darrell Gallardo MD - [...] up appointment with the cardiology department at [facility]. If you do not receive a call to schedule this, please call [facility] main line and ask for [facility] cardiology scheduling desk in order to set this appointment. You will additionally have follow up with the EP (Electrophysiology) team for your pacemaker. Your Inpatient Doctor: MD Albert Kendrick MD Aditya Sharma, MD Your Primary Care Provider: Devorah Epstein MD [phone] For questions regarding this document or issues relating to this hospitalization on the Medical Service, please contact your inpatient physician through the [facility] Clinical Lab Scientist . Issues afterhours and on weekends will [...] Cardiac Device Implant Progress Note Serge Cabrera [id number] 12/06/2023 Assessment/Plan: Doing well post op day [...] (LBBB). Chest x-ray: Device Interrogation: Data Device: Medtronic Micra (VR2) #[id number] - Implanted 12/05/2023 Diagnostics Pacing Mode: VVIR Presenting EGMs: CABLE SWAGER Underlying Rhythm: Atrial fibrillation Ventricular Pacin.2% Battery and Leads Voltage: 3.06V Longevity: >10 years Impedance (ohms) Sensing (mV) Threshold 730 15 0.25V @ 0.24 ms Comments: - Device is functioning appropriately - Programming changes None - Follow up: Per device clinic David Calixto MD 12/06/2023 Pager: [phone] Associated attestation - Nikki Serrano MD - [...] transportation. Will be transported to unit by INDUSTRIAL LOCOMOTIVE OPERATOR. Artem MICHELE * Nikki Serrano MD - [...] HTN, HLD, A- fib, presented initially to [facility] for one month of episodic dyspnea on exertion and epigastric discomfort and now being transferred to [facility] for symptomatic a- fib with slow ventricular [...] 125.8 kg (277 lb 6.4 oz) 12/04/23 05 128.2 kg (282 lb 10.1 oz) 12/03/23 [...] cm. Compared to the prior study in 2017 the LVEF decreased from 80% to 63% [...] 2017, HTN, HLD, A-fib, presented initially to [facility] for one month of episodic dyspnea on exertion and epigastric discomfort and now being transferred to [facility] for symptomatic a-fib with slow ventricular response [...] course Cyndi Archer, Internal Medicine PGY-1 Pager [phone], M1-S2 Service Cardiology Attending Note I interviewed and examined the patient during comprehensive bedside rounds. I concur with the summary of interval events, active hospital-focused problem list and plan of care as described in the note below. I personally reviewed the medications, laboratory results, treatment decisions and updated the patient. Albert Oreilly MD, FACP, FACC Section of Cardiovascular Medicine [facility] Medical Case Managerlibrary acquisitions technician [facility] This patient meets or has met medical [...] lesions, no petechiae Labs Recent Labs 12/03/23 0100 WBC 5.1 HGB 13.1* HCT 41.6 PLATELET 123* Recent Labs 12/04/23 0942 12/03/23 0100 NA 140 141 K 4.3 4.4 CL 106 109* CO2 19* 20* BUN 36* 35* CREATININE 1.59* 1.86* Recent Labs 12/03/23 0100 AST 14 ALT 15 ALKPHOS 70 BILITOT 0.8 BILIDIR 0.3 Recent Labs 12/04/23 0942 12/03/23 0100 CALCIUM 10.4 9.8 MAGNESIUM 0.96 0.92 PHOS 3.5 3.1 Recent Labs 12/03/23 0100 INR [...] 2017, HTN, HLD, A-fib, presented initially to [facility] for one month of episodic dyspnea on exertion and epigastric discomfort and now being transferred to [facility] for symptomatic a-fib with slow ventricular response [...] course Cyndi Archer, Internal Medicine PGY-1 Pager [phone], M1-S2 Service Cardiology Attending Note I interviewed and examined the patient during comprehensive bedside rounds. I concur with the summary of interval events, active hospital-focused problem list and plan of care as described in the note below. I personally reviewed the medications, laboratory results, treatment decisions and updated the patient. Albert Oreilly MD, FACP, FACC Section of Cardiovascular Medicine [facility] Medical Case Managerlibrary acquisitions technician [facility] This patient meets or has met medical criteria to require an inpatient level of care, i.e. a minimum of two midnights in the hospital with multiple complex problems. documented in this encounter H&P Notes * Albert Oreilly MD - 12/03/2023 12:57 AM EDT Cardiovascular Medicine Admission History and Physical Patient Name: Serge Cabrera Service: S2 Responsible Attending: Albert Oreilly MD PCP: Devorah Epstein MD PCP phone #: [phone] ID/Chief Complaint: 83 yo M with H CAD s/p CABG (FRIAS-LAD, SVG-OM) in August 2017, HTN, HLD, A-fib, presented initially to [facility] for one month of episodic dyspnea on exertion and epigastric discomfort and now being transferred to [facility] for symptomatic a-fib with slow ventricular response and likely permanent pacemaker. History of Present Illness: Patient reports a month of episodic dyspnea on exertion and epigastric discomfort. Daughter checkedpulse at home and it was in the 30s, which prompted presentation to [facility]. BP 130/80s, remains in the 30s without fluctuation. Troponin elevated at 82, in August was 71, priorto that was 61, described as stably/chronically mildly elevated. Follows with Dr. Hernandez at [facility] Cardiology. No known tick bites [...] Atrial fib/flutter, transient Pericardial effusion Atherosclerosis of [place] coronary artery of [place] heart with angina pectoris Meds: No current [...] in the last 7068 hours. Invalid input(s): [id number] Heme: No results for input(s): LDH, HAPTOGLOBIN, [...] 2017, HTN, HLD, A-fib, presented initially to [facility] for one month of episodic dyspnea on exertion and epigastric discomfort and now being transferred to [facility] for symptomatic a-fib with slow ventricular response and likely permanent pacemaker. Plan to hold all AV guido blocking agents, will order tick panel and plan for TTE on arrival. Some concern for infiltrative cardiomyopathy based on prior view of biatrial enlargement. Will also obtain SPEP/UPEP/FLE on arrival. Admit to Cardiology, S2 Team Pager #[phone] #Atrial fibrillation with slow ventricular response -Consult [...] MD, FACP, FACC Section of Cardiovascular Medicine [facility] Medical Case Managerlibrary acquisitions technician [facility] This patient meets or has met medical [...] DME used at home: respiratory supplies (CPAP ([employer])) DME Needed at Discharge: none Patient is insured through: Primary Insurance: MEDICARE Payor: MEDICARE / Plan: MEDICARE PART A & B / Product Type: *No Product type* / Secondary Insurance: [employer] [place] Prescription Coverage: Yes This plan was formulated with input from patient, (please identify family/friend involved if applicable) and team. All are in agreement with plan. Raiza Og RN * Consult Note - Meghan Cannon RN - 12/06/2023 10:35 AM EDT Images from the original note were not included. Certified Wound Care Nurse Note Situation: Follow up to see Serge Cabrera for compression wrap change to the RLE. [...] moist;pink;clean;yellow 12/06/23 1034 Drainage Characteristics/Odor serosanguineous 12/06/23 103 Drainage Amount small 12/06/23 103 Wound Cleaning cleansed with;sterile normal saline 12/06/23 103 Dressing dressing removed;dressing applied 12/06/23 103 Wound Image 12/06/23 103 Nutritional Status Wt Readings from Last 1 [...] 2023. Patient seen in outpatient clinic at [facility] and receives 2 layer wraps changes on [...] by changing from an oval to a afognak when it is stretched. 7. Start by [...] dressings. Re consult Wound Care Team via ED. Patient plan to be discharged today. Patient will plan to follow up in the outpatient clinic at [facility] and daughter change the wraps at home on Monday. Please contact Meghan Cannon RN on secure chat or the wound care team at [phone] or pager [phone] with skin and wound care concerns or [...] Operative Note Patient Name: Serge Cabrera : [id number] MR#: [id number] Case Date: 12/05/2023 Surgeon: Surgeons and Role: [...] Surgical Infection Prevention Bundle Used? N/A * [facility] [place] - Kreon Humphrey RN - 12/05/2023 3:04 PM EDT [...] w/o issue. Daughter spent night. 15 beat NSVTMD notified, 2g IV mag given. Medicated per AUG. Shift otherwise uneventful. PLAN MOVING FORWARD: Continue [...] bedside nurse, medical record, and Patient, Child NATIVIDAD Introduced self/reviewed role; services accepted. Admitted From: Transfer from another hospital Location: [facility] Reason for Hospitalization: low heart rate, and possible pacemaker Covid Vaccination Status: Unvaccinated Last COVID test: Past medical History: No past medical history on file. Hospitalizations Within the Past 30 Days: no previous admission in last 30 days Current Decision-Making Capacity: Self If AD's have not been completed the following surrogate would be surrogate decision maker per [place] surrogate decision making law. (Only good for 180 days) Any patient receiving care in [place] must abide by [place] law. The hierarchy for surrogate decision making [...] (i) The agent with financial power of civil litigation attorney or a conservator appointed in accordance [...] homeless or living in a usp (including now)?: No In the past 12 months has the [employer] gas, oil, or water [employer] threatened to shut off services in your [...] living?: No Current DME: respiratory supplies (CPAP ([facility])) Home Address confirmed as: [address] [place] [id number] Social & Family Supports: All names listed below confirmed with patient as current and correct Extended Emergency Contact Information Primary Emergency Contact: [place] [address] [place] Mobile Relation: Child Current Care Provided by: self Provides Primary Care For: no one Caregiver if needed: none Quality of Family relationships: helpful, involved, supportive Community Resources being provided currently: other (see comments) (Pt receives wound care from [facility] on a weekly basis. Also typically receives PT from [facility], but due to leg wound, [...] *No Product type* / Secondary Insurance: [place] ONLY if patient has Medicare A&B - Does this patient have secondary insurance?: Yes ; Prescription Coverage: Yes Preferred Pharmacy: [id number] AT [address] [address] Status: Patient is a : No Primary Care Provider confirmed: Devorah Epstein MD [phone] Patient/Caregiver Goals of Treatment: Potential Needs for Transition of Care: unable to assess Agency Referrals: TBD Transportation: no concerns Transportation Anticipated: family or friend will provide (Sanna (daughter) will provide a ride) Concerns to be Addressed: unable to assess Assessment: Patient is admitted to Cardiology service for Afib/flutter, transient. Uses a CPAP (formerly known as [employer]). Pt notes receiving wound care at [facility] on a weekly basis. Had been receiving PT at [facility] up until late last year, [...] of care planning. NATIVIDAD [facility] Ext. [phone] * Consult Note - Giulia Ibarra RN - 12/04/2023 11:48 AM EDT Certified Wound Care Nurse Note Situation: Asked to see Serge Cabrera by Joshua Marie, LENY for RLE open wound 1 inch by 1.5inch. Background: eD-H notes reviewed for history, admitting diagnosis and active problem list. ? Issues/concerns identified: Patient uses hibiclens, Algidex Ag Hydrogel Gauze and CoFlex TLS Zinc Lite. He goes to [facility] for wound care and his does the dressing at home. Dressings are done every Monday and Monday. ? Current Wound Care Recommendations reviewed: Wound Care will follow up on Monday. Follow hospital standard for pressure injury prevention and skin care. Refer to adult/pediatric pressure ulcer prevention job aid in the clinical policy library. ?? ? Please contact Siena Ibarra RN on pager [phone] or the wound care team at [phone] with skin and wound care concerns or [...] midnight for pacer placement. Echo this am 6/10 for diagnostics prior to pacer type decision [...] Consultation: 12/03/2023 Admit Date: 12/02/2023 Patient Location: [facility] Attending Power Mule Operator: Maggie Reason for Consult: We are seeing [...] chamber PPM (with or without LBBAP) versus HAIRSPRING INSPECTOR pending echo. Recommendations: -Recommend 48 hours of [...] Ventricular Response, Symptomatic #CAD s/p 2V CABG 2018 -Post-surgery pericardial effusion with 1100 mL drained [...] with junctional escape. 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 He currently lives in [place], [place]. He is originally from the [facility] [place]. 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 Fabio Pringle MD 12/03/2023 Pager #[phone] Staff addendum: I have seen and evaluated the patient, and reviewed the available medical records. I agree with the findings, physical examination, and assessment of Dr. Pringle as detailed above. Mr. Caberra has slow AF with, at times, CHB [...] AM EDT Hospital Encounter [place] [address] Arrived Scheduled Orders Name Type [...] XR CHEST PA AND LATERAL Routine 12/06/19 24 6:59 AM EDT HC HEMOGRAM Routine 12/06/2023 [...] & Lateral (Generic) (12/06/2023 6:59 AM EDT) Left of the [employer] Signature WORKSTATION ID [id number] RAD Anatomical Region Laterality Modality Chest N/A [...] who have questions please contact the health senior care manager that requested your imaging first. ? Electronically signed by: Henrique Cheek MD, [facility] ??([phone]), at 12/06/2023 9:14 AM Narrative 12/06/2023 9:14 AM EDT EXAMINATION: XR [...] patients who have questions please contactthe health senior care manager that requested your imaging first. Albert Oreilly MD IMG DX ORDERABLES * (ABNORMAL) Hemogram (12/06/2023 1:53 AM EDT) WBC 7.6 4.0 - 9.5 x10(3)/[facility] RBC 4.84 4.58 - 5.54 x10(6)/[facility] Hemoglobin 14.0 13.7 - 16.5 g/dL [facility] Hematocrit 44.2 40.5 - 48.5 % [facility] MCV 91.3 82.9 - 93.1 [facility] MCH 28.9 27.5 - 32.[address] [facility] MCHC 31.7(L) 32.0 - 35.7 g/dL [facility] Platelets 140(L) 145 - 357 x10(3)/[facility] RDWSD 51.2(H) 36.0 - 45.0 [facility] RDWCV 15.4(H) 11.4 - 13.8 % [facility] MPV 10.3 7.6 - 12.9 [facility] nRBC % Auto 0.0 % [facility] nRBC Abs Auto 0.000 0.000 - 0.000 x10(3)/[facility] Blood 12/06/2023 1:53 AM EDT 12/06/2023 2:23 AM EDT Narrative Resulting Agency Comment Spec In Lab Albert Oreilly MD HEMATOLOGY ORDERAB LES [facility] [place] [place] [address] * Phosphorus (12/06/2023 1:53 AM EDT) Phosphorus 2.8 2.5 - 4.5 mg/dL [facility] Blood 12/06/2023 1:53 AM EDT 12/06/2023 2:23 AM EDT Narrative Resulting Agency Comment Spec In Lab Albert Oreilly MD CHEMISTRY ORDERABL ES Performing Organization Address [facility] Co de Phone Number [facility] [place] [address] * Magnesium (12/06/2023 1:53 AM EDT) Pathologist [facility] Magnesium 0.86 0.69 - 1.07 mmol/L [facility] Blood 12/06/2023 1:53 AM EDT 12/06/2023 2:23 AM EDT Narrative Resulting Agency Comment Spec In Lab Albert Oreilly MD CHEMISTRY ORDERABL ES Performing Organization Address [facility] Co de Phone Number [facility] [place] [address] * (ABNORMAL) Basic Metabolic Panel (non-fasting) (12/06/2023 1:53 AM EDT) Pathologist [facility] Glucose Lvl 254(H) 65 - 199 mg/dL [facility] Comment:Diabetes: >=200 mg/d L plus symptoms BUN 30(H) 10 - 20 mg/dL [facility] Creatinine 1.47 0.80 - 1.50 mg/dL [facility] Sodium 139 135 - 145 mmol/L [facility] Potassium 4.0 3.5 - 5.0 mmol/L [facility] Comment: Please note: ??Patients with WBC >100,000 may have falsely elevated Potassium levels. ??For accurate Potassium quantification in these patients send serum separator tube (gold top) for subsequent determinations. ??Contact the Clinical Chemistry Laboratory if there are any questions. Chloride 104 98 - 107 mmol/L [facility] CO2 19(L) 22 - 31 mmol/L [facility] Anion Gap 16(H) 5 - 15 mmol/L [facility] Calcium 9.8 8.5 - 10.5 mg/dL [facility] Estimated GFR 47(L) >=60 mL/min/1. 73 m?? [facility] Comment: This patient's estimated GFR [...] Lab Albert Oreilly MD CHEMISTRY ORDERABL ES [facility] [place] [address] * ELECTROPHYSIOLOGY PROCEDURE (12/05/2023 3:14 PM EDT) Anatomical Region Laterality Modality Other Narrative 12/06/2023 10:27 PM EDT [facility] Cardiac Electrophysiology Procedure Report Procedure: Implant leadless pacemaker Procedure Date: 12/05/2023 Clinical Lab Scientist: Heriberto Geronimo MD Dye Range Feeder: Fabio Pringle MD Primary Care physician: Devorah Epstein MD Referring physician: Mei Sanchez MD Anesthesia: general anesthesia provided by anesthesia service Background: Nr. Serge Cabrera ( 40) is an 83 y.o. 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 ??The Micra was then deployed. ?? [...] higher than the previous placement. RENEE and KHMER contrast injection views showed adequate positioning. After tug test electrical parameters remained excellent. The retention suture was cut and removed. ?? A [id number] stitch was placed around the sheath puncture site with syvek dressing underneath and the sheath removed with good hemostasis after a 20 minute manual hold. ?? Implant: Medtronic Micra VR Model [id number] Serial [id number] Programming: VVIR 60-120 Sensin.3 mV Impedance 830 [...] access Procedures performed: leadless pacemaker implantation (cpt 40325) Heriberto Geronimo MD S Cardiac Electrophysiology 12/06/2023 10:26 PM . Heriberto Geronimo MD EP PROCEDURE ORDERAB LES * (ABNORMAL) Hemogram (12/05/2023 3:32 AM EDT) WBC 4.2 4.0 - 9.5 x10(3)/[facility] RBC 4.54(L) 4.58 - 5.54 x10(6)/[facility] Hemoglobin 13.2(L) 13.7 - 16.5 g/dL [facility] Hematocrit 41.7 40.5 - 48.5 % [facility] MCV 91.9 82.9 - 93.1 [facility] MCH 29.1 27.5 - 32.[address] [facility] MCHC 31.7(L) 32.0 - 35.7 g/dL [facility] Platelets 106(L) 145 - 357 x10(3)/[facility] RDWSD 51.9(H) 36.0 - 45.0 [facility] RDWCV 15.5(H) 11.4 - 13.8 % [facility] MPV 10.5 7.6 - 12.9 [facility] nRBC % Auto 0.0 % [facility] nRBC Abs Auto 0.000 0.000 - 0.000 x10(3)/[facility] Blood 12/05/2023 3:32 AM EDT 12/05/2023 3:53 AM EDT Narrative Resulting Agency Comment Spec In Lab Albert Oreilly MD HEMATOLOGY ORDERAB LES [facility] [place] [address] * Phosphorus (12/05/2023 3:32 AM EDT) Pathologist [facility] Phosphorus 3.9 2.5 - 4.5 mg/dL [facility] Blood 12/05/2023 3:32 AM EDT 12/05/2023 3:53 AM EDT Narrative Resulting Agency Comment Spec In Lab Albert Oreilly MD CHEMISTRY ORDERABL ES Performing Organization Address [facility] Co de Phone Number [facility] [place] [address] * Magnesium (12/05/2023 3:32 AM EDT) Pathologist [facility] Magnesium 0.90 0.69 - 1.07 mmol/L [facility] Blood 12/05/2023 3:32 AM EDT 12/05/2023 3:53 AM EDT Narrative Resulting Agency Comment Spec In Lab Albert Oreilly MD CHEMISTRY ORDERABL ES Performing Organization Address [facility] Co de Phone Number [facility] [place] [address] * (ABNORMAL) Basic Metabolic Panel (non-fasting) (12/05/2023 3:32 AM EDT) Pathologist [facility] Glucose Lvl 140 65 - 199 mg/dL [facility] Comment:Diabetes: >=200 mg/d L plus symptoms BUN 33(H) 10 - 20 mg/dL [facility] Creatinine 1.54(H) 0.80 - 1.50 mg/dL [facility] Sodium 141 135 - 145 mmol/L [facility] Potassium 4.1 3.5 - 5.0 mmol/L [facility] Comment: Please note: ??Patients with WBC >100,000 may have falsely elevated Potassium levels. ??For accurate Potassium quantification in these patients send serum separator tube (gold top) for subsequent determinations. ??Contact the Clinical Chemistry Laboratory if there are any questions. Chloride 108(H) 98 - 107 mmol/L [facility] CO2 22 22 - 31 mmol/L [facility] Anion Gap 11 5 - 15 mmol/L [facility] Calcium 9.7 8.5 - 10.5 mg/dL [facility] Estimated GFR 44(L) >=60 mL/min/1. 73 m?? [facility] Comment: This patient's estimated GFR [...] MD CHEMISTRY ORDERABL ES Performing Organization Address [facility] Co de Phone Number [facility] [place] [address] * Phosphorus (12/04/2023 9:42 AM EDT) Phosphorus 3.5 2.5 - 4.5 mg/dL [facility] Blood 12/04/2023 9:42 AM EDT 12/04/2023 10:20 AM EDT Narrative Resulting Agency Comment Spec In Lab Albert Oreilly MD CHEMISTRY ORDERABL ES Performing Organization Address [facility] Co de Phone Number [facility] [place] [address] * Magnesium (12/04/2023 9:42 AM EDT) Magnesium 0.96 0.69 - 1.07 mmol/L [facility] Blood 12/04/2023 9:42 AM EDT 12/04/2023 10:20 AM EDT Narrative Resulting Agency Comment Spec In Lab Albert Oreilly MD CHEMISTRY ORDERABL ES [facility] [place] [address] * (ABNORMAL) Basic Metabolic Panel (non-fasting) (12/04/2023 9:42 AM EDT) Pathologist [facility] Glucose Lvl 131 65 - 199 mg/dL [facility] Comment:Diabetes: >=200 mg/d L plus symptoms BUN 36(H) 10 - 20 mg/dL [facility] Creatinine 1.59(H) 0.80 - 1.50 mg/dL [facility] Sodium 140 135 - 145 mmol/L [facility] Potassium 4.3 3.5 - 5.0 mmol/L [facility] Comment: Please note: ??Patients with WBC >100,000 may have falsely elevated Potassium levels. ??For accurate Potassium quantification in these patients send serum separator tube (gold top) for subsequent determinations. ??Contact the Clinical Chemistry Laboratory if there are any questions. Chloride 106 98 - 107 mmol/L [facility] CO2 19(L) 22 - 31 mmol/L [facility] Anion Gap 15 5 - 15 mmol/L [facility] Calcium 10.4 8.5 - 10.5 mg/dL [facility] Estimated GFR 43(L) >=60 mL/min/1. 73 m?? [facility] Comment: This patient's estimated GFR [...] Lab Albert Oreilly MD CHEMISTRY ORDERABL ES [facility] [place] [address] * ECHO COMPLETE W CONTRAST (12/04/2023 9:31 AM EDT) Anatomical Region Laterality Modality Cardiac Other 12/04/2023 8:27 AM EDT Narrative 12/04/2023 10:10 AM EDT [address] [place] [address] ? Echocardiogram Report Name: SERGE CABRERA ? Study Date: 12/04/2023 08:27 AMBP: 180/80 mmHg ? Patient [facility] A : 1940 ? Height: 183 cm ? Account: [id number] Age: 83 yrs ? Weight: 127 kg Gender: Male ?BSA: 2.5 m2 Ordering Physician: ALBERT OREILLY Referring Physician: MEI SANCHEZ Performed By: Kaden Anthony RDCS Reason For Study: Atrial fib/flutter, transient Exam Location: [facility]. Interpretation Summary -Wall thickness is moderately increased [...] visual assessment, DI, and estimated MICHAEL. Procedure Complete-00903. Image enhancement Optison was used for left [...] Procedure Note Diego Hoyos MD - 12/04/[address] [place] [address] Echocardiogram Report Name: SERGE CABRERA Study Date: 408:27 AMBP: 180/80 mmHg Patient Location: [address] : 1940 Height: 183 cm Account: [id number] Age: 83 yrs Weight: 127 kg Gender: Male BSA: 2.5 m2 Ordering Physician: ALBERT OREILLY Referring Physician: MEI SANCHEZ Performed By: Kaden Anthony RDCS Reason For Study: Atrial fib/flutter, transient Exam Location: [facility]. Interpretation Summary -Wall thickness is moderately increased [...] visual assessment, DI, and estimated MICHAEL. Procedure Complete-[id number]. Image enhancement Optison was used for left [...] Protein Ran 53(H) 0 - 12 mg/dL [facility] U Albumin 68 % total [facility] U Globulin 32 % total [facility] U M Band None Detected [facility] U PEP Comments See Note [facility] Comment: There is no evidence of clonal free light chains in this patient's urine sample. Urine 12/03/2023 1:30 AM EDT 12/03/2023 2:48 AM EDT Narrative Resulting Agency Comment Spec In Lab Albert Oreilly MD URINE ORDERABLES [facility] [place] [address] * (ABNORMAL) Immunoglobulins, Quantitative (12/03/2023 1:00 AM EDT) Pathologist [facility] IgG 685(L) 700 - 1,600 mg/dL [facility] Comment: Pediatric Reference Intervals obtained from the Cal[employer] Reference Interval project. http://www.sickkids.ca/caliperproject/index.html IgA 142 70 - 400 mg/dL [facility] IgM 14(L) 40 - 230 mg/dL [facility] Blood Venous Draw / Unknown 12/03/2023 1:00 AM EDT 12/03/2023 1:17 AM EDT Narrative Resulting Agency Comment Spec In Lab Elías Duff MD CHEMISTRY ORDERABLES [facility] [place] [address] * Immunofixation Electrophoresis (12/03/2023 1:00 AM EDT) RICHARD See Note [facility] Comment: RICHARD shows no evidence of a monoclonal immunoglobulin. Dr. Miguel A Park 12/06/2023 See scanned report. Blood Venous Draw / Unknown 12/03/2023 1:00 AM EDT 12/03/2023 1:17 AM EDT Narrative Resulting Agency Comment Spec In Lab Elías Duff MD CHEMISTRY ORDERABLES [facility] [place] [address] * (ABNORMAL) BMP w/fasting Glucose (12/03/2023 1:00 AM EDT) Pathologist [facility] Glucose Fasting 134(H) 65 - 99 mg/dL [facility] Comment: ?Fasting* Glucose Interpretive Criteria [...] of Diabetes Mellitus, Position Statement from the [place] [employer]. ??Diabetes Care, Volume 33, Supplement 1, Jun 2009 BUN 35(H) 10 - 20 mg/dL [facility] Creatinine 1.86(H) 0.80 - 1.50 mg/dL [facility] Sodium 141 135 - 145 mmol/L [facility] Potassium 4.4 3.5 - 5.0 mmol/L [facility] Comment: Please note: ??Patients with WBC >100,000 may have falsely elevated Potassium levels. ??For accurate Potassium quantification in these patients send serum separator tube (gold top) for subsequent determinations. ??Contact the Clinical Chemistry Laboratory if there are any questions. Chloride 109(H) 98 - 107 mmol/L [facility] CO2 20(L) 22 - 31 mmol/L [facility] Anion Gap 12 5 - 15 mmol/L [facility] Calcium 9.8 8.5 - 10.5 mg/dL [facility] Estimated GFR 35(L) >=60 mL/min/1. 73 m?? [facility] Comment: This patient's estimated GFR [...] In Lab Elías Duff MD CHEMISTRY ORDERABLES [facility] [place] [address] * (ABNORMAL) Differential, Automated (12/03/2023 1:00 AM EDT) Neutrophils % 72.9 % [facility] Neutr Abs (ANC) 3.74 1.70 - 6.10 x10(3)/mc L [facility] Lymphocytes % 14.5 % [facility] Lymphocytes Abs 0.7(L) 0.9 - 3.2 x10(3)/mc L [facility] Monocytes % 10.4 % [facility] Monocyte Abs 0.5 0.3 - 0.9 x10(3)/[facility] Eosinophils % 1.4 % [facility] Eosinophils Abs 0.1 0.0 - 0.4 x10(3)/[facility] Basophils % 0.4 % [facility] Basophils Abs 0.0 0.0 - 0.1 x10(3)/[facility] Immature Gran % 0.40 % [facility] Comment: Immature granulocytes(IG's)percentage and absolute count will include metamyelocytes, myelocytes, and promyelocytes. Blood smears from CBCs yielding IG's will be scanned manually for concordance. If this scan disagrees with the automated IG or if promyelocytes are noted, a manual differential will be performed. Steph Gran Abs 0.02 0.00 - 0.04 x10(3)/[facility] Blood 12/03/2023 1:00 AM EDT 12/03/2023 1:17 AM EDT Narrative Resulting Agency Comment Spec In Lab Elías Duff MD HEMATOLOGY ORDERABLE S [facility] [place] [address] * (ABNORMAL) Hemogram (12/03/2023 1:00 AM EDT) WBC 5.1 4.0 - 9.5 x10(3)/[facility] RBC 4.49(L) 4.58 - 5.54 x10(6)/[facility] Hemoglobin 13.1(L) 13.7 - 16.5 g/dL [facility] Hematocrit 41.6 40.5 - 48.5 % [facility] [place] [place] MCV 92.7 82.9 - 93.[address] [facility] MCH 29.2 27.5 - 32.[address] [facility] MCHC 31.5(L) 32.0 - 35.7 g/dL [facility] Platelets 123(L) 145 - 357 x10(3)/[facility] RDWSD 52.5(H) 36.0 - 45.0 [facility] RDWCV 15.5(H) 11.4 - 13.8 % [facility] MPV 10.1 7.6 - 12.9 [facility] nRBC % Auto 0.0 % [facility] nRBC Abs Auto 0.000 0.000 - 0.000 x10(3)/[facility] Blood 12/03/2023 1:00 AM EDT 12/03/2023 1:17 AM EDT Narrative Resulting Agency Comment Spec In Lab Elías Duff MD HEMATOLOGY ORDERABLE S Performing Organization Address [facility] Co de Phone Number [facility] [place] [address] * Free Light Chains, Serum (12/03/2023 1:00 AM EDT) [facility] Free Light Chain 2.66 0.72 - 2.75 mg/dL [facility] Lambda Free Light Chain 2.00 0.57 - 2.15 mg/dL [facility] [place] Lambda FLC Ratio 1.3300 0.4000 - 2.5800 [facility] Blood 12/03/2023 1:00 AM EDT 12/03/2023 1:17 AM EDT Narrative Resulting Agency Comment Spec In Lab Albert Oreilly MD CHEMISTRY ORDERABL ES Performing Organization Address [facility] Co de Phone Number [facility] [place] [address] * (ABNORMAL) Protein Electrophoresis, serum (12/03/2023 1:00 AM EDT) Pathologist [facility] Total Prot Elec 6.0(L) 6.1 - 8.0 g/dL [facility] Albumin Elect 4.13 3.20 - 5.20 g/dL [facility] Alpha1-Globulin 0.19 0.10 - 0.30 g/dL [facility] Alpha2-Globulin 0.60 0.40 - 0.90 g/dL [facility] Beta Globulin 0.62 0.50 - 1.00 g/dL [facility] Gamma Globulin 0.46(L) 0.50 - 1.30 g/dL [facility] M1 Band Comments Below None Detected [facility] SPEP Comments See Note [facility] Comment: 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 Immunofixation (RICHARD) and quantitative immunoglobulin (NIK) testing will be performed on this sample. Blood 12/03/2023 1:00 AM EDT 12/03/2023 1:17 AM EDT Narrative Resulting Agency Comment Spec In Lab Albert Oreilly MD CHEMISTRY ORDERABL ES Performing Organization Address City/[facility]/ZIP Co de Phone Number [facility] [place] [address] * Lyme IgG & IgM Antibody (12/03/2023 1:00 AM EDT) Lyme Screening Antibody Negative Negative [facility] Lyme Ab Comment Negative result does not exclude possibility of infection. [facility] Comment: Please note that as of 11/01/2022 that this testing is performed by the Special [facility] Laboratory at [facility] This change in testing location is associated with a change in testing methodology. Blood 12/03/2023 1:00 AM EDT 12/04/2023 7:29 AM EDT Narrative Resulting Agency Comment Spec In Lab Albert Oreilly MD IMMUNOLOGY ORDERAB LES Performing Organization Address City/[facility]/ZIP Co de Phone Number [facility] [place] [place] [address] * Acute Tick Borne Infection Panel (12/03/2023 1:00 AM EDT) [facility] Anaplasma phagocytophilum PCR Not Detected Not Detected [facility] Comment: INTERPRETATION: A positive result [...] [employer] ([facility]) Laboratory at [facility]. It has not been cleared or approved by the FDA. The laboratory is regulated under CLIA as qualified to perform high-complexity testing. This test is used for clinical purposes. It should not be regarded as investigational or for research. Ehrlichia chaffeensis PCR Not Detected Not Detected [facility] Comment: INTERPRETATION: A positive result [...] and its performance characteristics determined by the [employer] at [facility]. It has not been cleared or approved by the FDA. The laboratory is regulated under CLIA as qualified to perform high-complexity testing. This test is used for clinical purposes. It should not be regarded as investigational or for research. Babesia microti PCR Not Detected Not Detected [facility] Comment: INTERPRETATION: A positive result [...] and its performance characteristics determined by the [employer] [facility] at [facility]. It has not been cleared or approved by the FDA. The laboratory is regulated under CLIA as qualified to perform high-complexity testing. This test is used for clinical purposes. It should not be regarded as investigational or for research. Borrelia miyamotoi PCR Not Detected Not Detected [facility] Comment: INTERPRETATION: A positive result [...] [facility] ([facility]) Laboratory at [facility]. It has not been cleared or approved [...] MD HEMATOLOGY ORDERAB LES Performing Organization Address [facility] Phone Number [facility] [place] [address] * Triglyceride (12/03/2023 1:00 AM EDT) Triglycerides 154 mg/dL [facility] Comment: Normal: ?<150 mg/dL Borderline High: 150-199 mg/dL High: ?200-499 mg/dL Very High: ? >af=577 mg/dL Blood 12/03/2023 1:00 AM EDT 12/03/2023 1:17 AM EDT Narrative Resulting Agency Comment Spec In Lab Albert Oreilly MD CHEMISTRY ORDERABL ES Performing Organization Address [facility] Phone Number [facility] [place] [address] * HDL/Cholesterol Profile (12/03/2023 1:00 AM EDT) Chol, Total 78 mg/dL [facility] Comment: Desirable: ? <200 mg/dL Borderline High: 200-239 mg/dL Higher: ?>vd=114 mg/dL HDL 34 mg/dL [facility] Comment: Females: High Risk: <50 mg/dL Males: High Risk: <40 mg/dL Lipid Interpretation See Note [facility] Comment: It is important to [...] ACC/AHA Guidelines (most recently Tiago et al. [facility] 03/29/22): For individuals with atherosclerotic cardiovascular disease (ASCVD)or LDL >dg=313 mg/dL, use a high-intensity statin (40-80 mg [...] MD CHEMISTRY ORDERABL ES Performing Organization Address [facility] de Phone Number [facility] [place] [address] * LDL Cholesterol, Direct (12/03/2023 1:00 AM EDT) LDL Chol Direct 29 mg/dL [facility] Comment: Desirable: ? <100 mg/dL Above Desirable: 100-129 mg/dL Borderline High: 130-159 mg/dL High: ?160-189 mg/dL Very High: ? >rl=468 mg/dL If not reaching LDL goals on [...] MD CHEMISTRY ORDERABL ES Performing Organization Address [facility] de Phone Number [facility] [place] [address] * (ABNORMAL) Hemoglobin A1c (12/03/2023 1:00 AM EDT) Hemoglobin A1C 6.5(H) 4.3 - 5.6 % [facility] Comment: Reference Range: 4.3 - [...] Mellitus, Diabetes Care 2013; 36: Suppl. 1, S67-49 Est Avg Gluc See note mg/dL [facility] Comment: Estimated Average Glucose not appropriate for patients over 70 years of age. Blood 12/03/2023 1:00 AM EDT 12/03/2023 1:17 AM EDT Narrative Resulting Agency Comment Spec In Lab Albert Orielly MD CHEMISTRY ORDERABL ES Performing Organization Address [facility] de Phone Number [facility] [place] [address] * APTT (12/03/2023 1:00 AM EDT) PTT 31 25 - [address] [facility] Comment: The PTT is NOT appropriate for heparin monitoring. Use the Anti-Xa level for heparin monitoring (HEP UFH) or LMWH monitoring (HEP LMW). A PTT less than 37 seconds generally indicates adequate hemostasis. Blood 12/03/2023 1:00 AM EDT 12/03/2023 1:17 AM EDT Narrative Resulting Agency Comment Spec In Lab Albert Oreilly MD HEMATOLOGY ORDERAB LES Performing Organization Address [facility] de Phone Number [facility] [place] [address] * (ABNORMAL) Prothrombin Time (12/03/2023 1:00 AM EDT) PT 14.7(H) 9.4 - 12.[address] [facility] INR 1.3 [facility] Comment: An INR <2.0 indicates [...] MD HEMATOLOGY ORDERAB LES Performing Organization Address [facility] Co de Phone Number [facility] [place] [address] * Hepatic Function Panel (12/03/2023 1:00 AM EDT) Total Protein 6.1 6.1 - 8.0 g/dL [facility] Albumin 4.0 3.2 - 5.2 g/dL [facility] AST 14 0 - 39 unit/L [facility] ALT 15 0 - 55 unit/L [facility] Alk Phos 70 40 - 130 unit/L [facility] Total Bilirubin 0.8 0.2 - 1.3 mg/dL [facility] Bili, Direct 0.3 0.0 - 0.3 mg/dL [facility] Blood 12/03/2023 1:00 AM EDT 12/03/2023 1:17 AM EDT Narrative Resulting Agency Comment Spec In Lab Albert Oreilly MD CHEMISTRY ORDERABL ES Performing Organization Address [facility] de Phone Number [facility] [place] [address] * (ABNORMAL) pro-Brain Natriuretic Peptide (12/03/2023 1:00 AM EDT) ProBNP 4,344(H) <=449 pg/mL [facility] Blood 12/03/2023 1:00 AM EDT 12/03/2023 1:17 AM EDT Narrative Resulting Agency Comment Spec In Lab Albert Oreilly MD CHEMISTRY ORDERABL ES Performing Organization Address [facility] Co de Phone Number [facility] [place] [address] * TSH (12/03/2023 1:00 AM EDT) TSH 1.29 0.27 - 4.20 mcIU/mL [facility] Comment: Reference Interval (mcIU/mL): Females: ??First Trimester: 0.23-3.88 ??Second Trimester: 0.22-3.90 ??Third Trimester: 0.44-4.66 Blood 12/03/2023 1:00 AM EDT 12/03/2023 1:17 AM EDT Narrative Resulting Agency Comment Spec In Lab Albert Oreilly MD CHEMISTRY ORDERABL ES Performing Organization Address [facility] Co de Phone Number [facility] [place] [address] * Phosphorus (12/03/2023 1:00 AM EDT) Phosphorus 3.1 2.5 - 4.5 mg/dL [facility] Blood 12/03/2023 1:00 AM EDT 12/03/2023 1:17 AM EDT Narrative Resulting Agency Comment Spec In Lab Albert Oreilly MD CHEMISTRY ORDERABL ES Performing Organization Address [facility] Co de Phone Number [facility] [place] [address] * Magnesium (12/03/2023 1:00 AM EDT) Magnesium 0.92 0.69 - 1.07 mmol/L [facility] Blood 12/03/2023 1:00 AM EDT 12/03/2023 1:17 AM EDT Narrative Resulting Agency Comment Spec In Lab Albert Oreilly MD CHEMISTRY ORDERABL ES Performing Organization Address [facility] Co de Phone Number [facility] [place] [address] documented in this encounter Visit Diagnoses Not on filedocumented in this encounter Admitting Diagnoses Diagnosis Atrial fib/flutter, transient Atrial fibrillation documented in this encounter Administered Medications Inactive Administered Medications - up to 3 most recent administrations Medication Order MAR Action Action Date Dose Rate Site acetaminophen (Tylenol) tablet 650 mg 650 mg, [...] Given 12/04/2023 8:05 AM EDT 81 mg dextromethorphan-guaiFENesin (Robitussin DM) (2 mg-20 mg/mL) oral liquid 5 mL 5 mL, Oral, EVERY 4 HOURS PRN, Starting on Mon12/03/23 at 1256, Until Mon12/06/23 at 1640, Cough, Routine Given 12/04/2023 12:24 PM EDT 5 mLs Given 12/03/2023 9:12 PM EDT 5 mLs Given 12/03/2023 1:43 PM EDT 5 mLs furosemide (Lasix) tablet 40 mg 40 mg, Oral, DAILY, First dose on Mon12/03/23 at 0900, Until Discontinued, Routine Given 12/05/2023 8:35 AM EDT 40 mg Given 12/04/2023 8:04 AM EDT 40 mg Given 12/03/2023 8:36 AM EDT 40 mg losartan (Cozaar) tablet 100 mg 100 mg, Oral, DAILY, First dose (after last modification) on Mon12/03/23 at 0900, Until Discontinued, Please hold for SBP < 110, Routine Given 12/06/2023 8:12 AM EDT 100 mg Given 12/05/2023 8:36 AM EDT 100 mg Given 12/04/2023 8:05 AM EDT 100 mg pantoprazole EC (Protonix) tablet 40 mg 40 mg, Oral, DAILY, First dose on Mon12/03/23 at 0900, Until Discontinued Given 12/06/2023 8:12 AM EDT 40 mg Given 12/05/2023 8:35 AM EDT 40 mg Given 12/04/2023 8:05 AM EDT 40 mg polyethylene glycoL (Miralax) packet 17 g 17 [...] AM EDT 5 mLs tamsulosin (Flomax) capsule 0.8 mg 0.8 mg, [...] Routine 0805 (Given - Provider: Niki Coronado, LENY) 0834 (Given - Provider: Keron Humphrey, RN)1513 (AUG Hold - Provider: Admin Adt - Reason: Transfer to a Procedural area)1957 ([facility] Unhold - Provider: Admin Adt) 08 (Given - Provider: Keron Humphrey, RN) BUpivacaine (pf) (Marcaine) (5 mg/mL) 0.5% injection 150 mg (COMPLETED) 150 mg (30 mL), Subcutaneous, ONCE, 1 dose, On Mon12/05/23 at 1615, EP (Intra-Procedure), Routine 1539 (Given - Provider: Fabio Pringle MD) furosemide (Lasix) tablet 40 mg 40 mg, Oral, DAILY, First dose on Mon12/03/23 at 0900, Until Discontinued, Routine 0804 (Given - Provider: Niki Coronado, LENY) 0835 (Given - Provider: Keron Humphrey, LENY)1513 (AUG Hold - Provider: Admin Adt - Reason: Transfer to a Procedural area)1957 ([facility] Unhold - Provider: Admin Adt) 09 (Not Given - Provider: Keron Humphrey, LENY - Reason: Patient/family refused) lidocaine (Xylocaine) (20 [...] 110, Routine 0805 (Given - Provider: Niki Coronado, RN) 0836 (Given - Provider: Keron Humphrey, RN)1513 (AUG Hold - Provider: Admin Adt - Reason: Transfer to a Procedural area)1957 ([facility] Unhold - Provider: Admin Adt) 0812 (Given - Provider: Keron Humphrey, RN) magnesium sulfate 2 g in sterile water 50 mL infusion (COMPLETED) 2 g, Intravenous, ONCE, 1 dose, On Mon12/05/23 at 0345, Administer over 120 Minutes 0351 (New Bag - Provider: Elma Adams, LENY)0551 (Stopped - Provider: Elma Adams RN) magnesium sulfate 2 g in sterile water 50 mL infusion (COMPLETED) 2 g, Intravenous, ONCE, 1 dose, On Mon12/06/23 at 0600, Administer over 120 Minutes 0732 (New Bag - Provider: Keron Humphrey RN)0932 (Stopped - Provider: Keron Humphrey, LENY) pantoprazole EC (Protonix) tablet 40 mg 40 mg, Oral, DAILY, First dose on 12/03/23 at 0900, Until Discontinued 0805 (Given - Provider: Niki Coronado, LENY) 0835 (Given - Provider: Keron Humphrey, LENY)151 (AUG Hold - Provider: Admin Adt - Reason: Transfer to a Procedural area)1957 ([facility] Unhold - Provider: Admin Adt) 0812 (Given - Provider: Keron Humphrey, RN) polyethylene glycoL (Miralax) packet 17 g 17 g, Oral, DAILY, First dose on Mon12/04/23 at 1430, Until Discontinued, Routine 1349 (Given - Provider: Niki Coronado, LENY) 0900 (Not Given - Provider: Keron Humphrey, LENY - Reason: Patient/family refused)1513 (AUG Hold - Provider: Admin Adt - Reason: Transfer to a Procedural area)1957 ([facility] Unhold - Provider: Admin Adt) 09 (Not Given - Provider: Keron Humphrey RN - Reason: Patient/family refused) rosuvastatin (Crestor) tablet 20 mg 20 mg, Oral, DAILY, First dose on 12/03/23 at 0900, Until Discontinued, Routine 0804 (Given - Provider: Niki Coronado RN) 0835 (Given - Provider: Keron Humphrey RN)1513 ([facility] Hold - Provider: Admin Adt - Reason: Transfer to a Procedural area)1957 ([facility] Unhold - Provider: Admin Adt) 0811 (Given - Provider: Keron Humphrey RN) senna-docusate (Pericolace) 8.6-50 mg per tablet 2 tablet 2 tablet, Oral, DAILY, First dose on Mon12/04/23 at 1430, Until Discontinued, Routine 1349 (Given - Provider: Niki Coronado RN) 0836 (Not Given - Provider: Keron Humphrey RN - Reason: Patient/family refused)151 ([facility] Hold - Provider: Admin Adt - Reason: Transfer to a Procedural area)1957 ([facility] Unhold - Provider: Admin Adt) 09 (Not Given - Provider: Keron Humphrey RN - Reason: Patient/family refused) sodium chloride 0.9 % (flush) (BD PosiFlush Normal Saline 0.9) flush 5 mL 5 mL, Intravenous, 2 TIMES DAILY, First dose on 12/03/23 at 0015, Until Discontinued, Routine 0805 (Given - Provider: Niki Coronado RN)2047 (Given - Provider: Elma Adams RN) 0900 (Given - Provider: Keron Humphrey RN)151 ([facility] Hold - Provider: Admin Adt - Reason: Transfer to a Procedural area)1957 ([facility] Unhold - Provider: Admin Adt)2100 (Given - Provider: Elma Adams RN) 0900 (Given - Provider: Keron Humphrey RN) tamsulosin (Flomax) capsule 0.4 mg (CANCELED) 0.4 mg, Oral, DAILY, First dose on 12/03/23 at 0900, Until Discontinued, DO NOT CRUSH OR CHEW, Routine 0805 (Given - Provider: Niki Coronado RN) 0834 (Given - Provider: Keron Humphrey RN) tamsulosin (Flomax) capsule 0.8 mg 0.8 mg, Oral, DAILY, First dose (after last modification) on Mon12/06/23 at 0900, Until Discontinued, DO NOT CRUSH OR CHEW, Routine 1513 ([facility] Hold - Provider: Admin Adt - Reason: Transfer to a Procedural area)1957 ([facility] Unhold - Provider: Admin Adt) 0813 (Given - Provider: Keron Humphrey, LENY) PRN Medication Order 12/04/2023 12/05/2023 12/06/2023 acetaminophen (Tylenol) tablet 650 mg 650 mg, Oral, EVERY 4 HOURS PRN, Starting on Tu12/05/23 at 1810, Until Mon12/06/23 at 1640, Pain, [...] Oral, EVERY 4 HOURS PRN, Starting on 12/03/23 at 1256, Until Mon12/06/23 at 1640, Cough, Routine 1224 (Given - Provider: Niki Coronado, LENY) 1512 ([facility] Hold - Provider: Admin Adt - Reason: Transfer to a Procedural area)1957 ([facility] Unhold - Provider: Admin Adt) lidocaine (Xylocaine) 1% (10 mg/mL) injection 3 mg 3 mg (0.3 mL), Subcutaneous, ONCE PRN, 1 dose, Starting on 12/02/23 at 2323, Until Mon12/06/23 at 1640, for discomfort with PIV insertion, Routine 1513 ([facility] Hold - Provider: Admin Adt - Reason: Transfer to a Procedural area)1957 ([facility] Unhold - Provider: Admin Adt) perflutren protein-A microsphers (Optison) (0.22 mg/mL) injection 3 mL (COMPLETED) 3 mL, Intravenous, ONCE PRN, 1 dose, Starting on 12/04/23 at 0932, Until 12/04/23 at 0932, prn, Routine 0932 (Given - Provider: Kaden Anthony) polyethylene glycoL (Miralax) packet 17 g 17 g, Oral, DAILY PRN, Starting on 12/04/23 at 1438, Until Mon12/06/23 at 1640, Constipation, [...] link provided on this medication record., Routine 151 ([facility] Hold - Provider: Admin Adt - Reason: Transfer to a Procedural area)1957 ([facility] Unhold - Provider: Admin Adt) documented in this encounter 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
--- OUTSIDE RECORDS SUMMARY | 2024-01-22 03:01 | XMS_ITS | Encounter Summary ---
Author Organization [facility] [place] [address] Care Team Providers Care Supervisor Ditching Name Role Phone Devorah Epstein MD Primary Care Provider [phone] Encounter Details Date Type Department Care Team (Late st Contact Info) Description 09/20/2023 3:10 PM EDT Ancillary Procedure [place] [address] Mary Gregg MD [facility] [place] [address] [place] [address] Social History Tobacco Use Types Packs/Day Years [...] AM EDT Hospital Encounter Non[place] [id number] Arrived documented as of this encounter Procedures Procedure Name Priority Date/Time Associated Diagnosis Comments FILM LIBRARY STORAGE ONLY CT CHEST Routine 09/20/2023 3:09 PM EDT documented in this encounter Results * Film Library- Storage Only CT Chest (09/20/2023 3:09 PM EDT) Narrative [facility] - 09/20/2023 3:09 PM EDT This exam is auto-finalizing. It's purpose is for storage only. Mary Gregg MD IMG FILM LIBRARY ORD ERABLES Performing Organization Address City/State/[facility] Co de Phone Number [place], [place] documented in this encounter Visit Diagnoses Not on filedocumented in this encounter Care Teams Supervisor Ditching Relationship Specialty Start Date End Date Devorah Epstein MD [address] [place] [address] PCP - General Family Medicine 09/01/17 documented as of this encounter
--- OUTSIDE RECORDS SUMMARY | 2024-01-22 03:01 | XMS_ITS | Encounter Summary ---
Author [place] [address] Care Team Providers Care Online Advertising Analyst Name Role Phone Devorah Epstein MD Primary Care Provider [phone] Encounter Details Date Type Department Care Team (Late st Contact Info) Description 02/07/2018 External [place] [address] Ramon Jack MD [facility] [place] [address] Social History Tobacco Use Types Packs/Day Years [...] AM EDT Hospital Encounter Non-[place] [phone] Arrived documented as of this encounter Procedures Procedure Name Priority Date/Time Associated Diagnosis Comments ECG SCAN Routine 02/07/2018 documented in this encounter Results * Scan Doc: ECG (02/07/2018) Ramon Jack MD MEDIA MGR SCAN EXT O RDR/RSLT documented in this encounter Visit Diagnoses Not on filedocumented in this encounter Care Teams Online Advertising Analyst Relationship Specialty Start Date End Date Devorah Epstein MD [facility] [address] [place] [address] PCP - General Family Medicine 09/01/17 documented as of this encounter
--- OUTSIDE RECORDS SUMMARY | 2024-01-22 03:01 | XMS_ITS | Encounter Summary ---
Author Organization [place] [address] Care Team Providers Care Residential Treatment Specialist Name Role Phone Devorah Epstein MD Primary Care Provider [phone] Encounter Details Date Type Department Care Team (Late st Contact Info) Description 12/02/2023 Telephone Cardiology at [address] [address] Sarah Madrid MD [facility] [place] [address] Social History Tobacco Use Types Packs/Day Years Used Date Smoking Tobacco: Former Smokeless Tobacco: Never Alcohol Use Standard Drinks/Week Comments No 0 (1 standard drink = 0.6 oz pur e alcohol) [facility] Inpatient Questions Answer Date Recorded Does Anyone [...] encounter Miscellaneous Notes * Telephone Encounter - Sarah Madrid MD - 12/02/2023 5:44 PM EDT Images from the original note were not included. 12/02/2023 Keegan Cabrera Initial Contact Date: 12/02/2023 Initial contact time: 5:44 PM Referring Provider: [facility], Cristobal Sanchez MD CAD s/p CABG (FRIAS-LAD, 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 Daughter checked pulse & it was in the 30s prompting presentation to [facility]. BP 130/80s, remains in the 30s without fluctuation. Troponin elevated at 82, in August was 71, priorto that was 61, described as stably/chronically mildly elevated. Follows with Dr. Hernandez at [facility] Cardiology. No known tick bites or other recent exposures. Tick panel will be sent. Labs normal omitting plat 114 (chronically low), ProBNP approx 3K, which is apparently his baseline. TTE in September EF 50%, normal chamber size, no comment on wall thickness, biatrial enlargement. Initial vitals: 160/65 - 18 - 36.7 - 96 RA Past cardiac studies: TTE 12/2017 1. The [...] See remainder of report for additional findings. Plan: Keegan Cabrera is a 83 y.o. gentleman presenting with symptomatic atrial fibrillation with slowventricular response. 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 Hold all AV guido blocking therapies. Tickpanel. 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 Above recommendations were based on my discussion with the outside provider; I have not personally interviewed or examined this patient. Advised to call the transfer center back with any changes in the patient condition. Sarah Madrid MD Cardiology PGY 6 12/02/2023 documented in this encounter Plan of Treatment Upcoming Encounters Date Type Department Care Team (Late st Contact Info) Description 03/28/2024 10:00 AM EDT Hospital Encounter Non-[place] [address] Arrived documented as of this encounter Visit Diagnoses Not on filedocumented in this encounter Care Teams Residential Treatment Specialist Relationship Specialty Start Date End Date Devorah Epstein MD [address] [facility] [address] [place] [address] PCP - General Family Medicine 09/01/17 documented as of this encounter
--- OUTSIDE RECORDS SUMMARY | 2024-01-22 03:01 | XMS_ITS | Encounter Summary ---
Author Organization [facility] [place] [address] Care Team Providers Care Marketing Rotation Associate Name Role Phone Devorah Epstein MD Primary Care Provider Encounter Details Date Type Department Care Team (Latest Contact Info) Description 10/17/2017 1:19 PM EDT - 10/17/2017 11:59 PM EDT Hospital Encounter XRay at [address] [place] [address] Flower Smith APRN [facility] [place] [address] S/P CABG x 2 Discharge Disposition: Home Social History Tobacco Use [...] Sig Dispensed Refills Start Date End Date omeprazole (PRILOSEC) 20 mg Capsule, Delayed Release(E.C.) Take 20 mg by mouth daily. aspirin 81 mg Tablet, Delayed Release (E.C.) Take 81 mg by mouth daily. acetaminophen (TYLENOL) 500 mg Tablet Take 2 [...] AM EDT Hospital Encounter Non-[place] [address] Arrived documented as of this encounter Procedures Procedure Name Priority Date/Time Associated Diagnosis Comments XR CHEST PA AND LATERAL Routine 10/17/2017 1:29 PM EDT S/P CABG x 2 documented in this encounter Results * XR Chest PA & Lateral (Generic) (10/17/2017 1:29 PM EDT) Anatomical Region Laterality Modality Chest N/A Digital Radiogra phy Impressions 10/17/2017 3:01 PM EDT Stable to slightly decreased blunting of the left costophrenic angle due to any combination of small pleural effusion, scarring, and mild atelectasis. Narrative 10/17/2017 3:01 PM EDT EXAMINATION: XR CHEST PA AND LATERAL (GENERIC) CLINICAL HISTORY: s/p cabg TECHNIQUE: PA and lateral chest. COMPARISON: 09/14/2017. FINDINGS: Sternal wires and mediastinal surgical clips consistent with given history of CABG are seen again. Slightly decreased blunting of the left costophrenic angle. Stable cardiomediastinal silhouette. No acute airspace disease. Degenerative changes of the spine as before. Procedure Note Tania Milligan MD - 10/17/2017 EXAMINATION: XR CHEST PA AND LATERAL (GENERIC) CLINICAL HISTORY: s/p cabg TECHNIQUE: PA and lateral chest. COMPARISON: 09/14/2017. FINDINGS: Sternal wires and mediastinal surgical clips consistent with given historyof CABG are seen again. Slightly decreased blunting of the left costophrenicangle. Stable cardiomediastinal silhouette. No acute airspace disease.Degenerative changes of the spine as before. IMPRESSION Stable to slightly decreased blunting of the left costophrenic angle dueto any combination of small pleural effusion, scarring, and mild atelectasis. Electronically signed by: Tania [facility], at10/17/2017 3:01 PM [place] [facility] IMG DX ORDERABLES documented in this encounter Visit Diagnoses Diagnosis S/P CABG x 2 Postsurgical aortocoronary bypass status documented in this encounter Care Teams Marketing Rotation Associate Relationship Specialty Start Date End Date Devorah Epstein MD [facility] [address] [place] [address] PCP - General Family Medicine 09/01/17 documented as of this encounter
--- OUTSIDE RECORDS SUMMARY | 2024-01-22 03:01 | XMS_ITS | Encounter Summary ---
Author Organization [facility] [place] [address] Care Team Providers Care Computer Processing Scheduler Name Role Phone Devorah Epstein MD Primary Care Provider [phone] Encounter Details Date Type Department Care Team (Late st Contact Info) Description 09/16/2023 Ancillary Procedure [place] [address] Mary Gregg MD [facility] [place] [address] Social History Tobacco Use Types Packs/Day Years [...] AM EDT Hospital Encounter Non-Invasive [place] [phone] Arrived documented as of this encounter Procedures Procedure Name Priority Date/Time Associated Diagnosis Comments FILM LIBRARY STORAGE ONLY DX LOWER EXTREMITY Routine 09/16/2023 12:00 AM EDT documented in this encounter Results * Film Library- Storage Only DX Lower Extremity (09/16/2023 12:00 AM EDT) Narrative [facility] - 09/20/2023 3:10 PM EDT This exam is auto-finalizing. It's purpose is for storage only. Mary Gregg MD IMG FILM LIBRARY ORD ERABLES Performing Organization Address City/State/[facility] Co de Phone Number [place], [place] documented in this encounter Visit Diagnoses Not on filedocumented in this encounter Care Teams Computer Processing Scheduler Relationship Specialty Start Date End Date Devorah Epstein MD [address] [place] [address] PCP - General Family Medicine 09/01/17 documented as of this encounter
--- OUTSIDE RECORDS SUMMARY | 2024-01-22 03:01 | XMS_ITS | Encounter Summary ---
[facility] [place] [address] Care Team Providers Care Regional Extension Service Specialist Name Role Phone Devorah Epstein MD Primary Care Provider [phone] Encounter Details Date Type Department Care Team (Late st Contact Info) Description 01/02/2018 2:10 PM EDT Office [place] [address] Pablo Govea MD [facility] [place] [address] Pericardial effusion Social History Tobacco Use Types Packs/Day Years [...] Sign Reading Time Taken Comments Blood Pressure 138/90 01/02/2018 2:03 PM EDT Pulse 38 01/02/2018 2:03 PM EDT Temperature - - Respiratory Rate - - Oxygen Saturation 93% 01/02/2018 2:03 PM EDT Inhaled Oxygen Concentration - - Weight 105.7 kg (233 lb) 01/02/2018 2:03 PM EDT Height 182.9 cm (6') 01/02/2018 2:03 PM EDT Body Mass Index 31.6 01/02/2018 2:03 PM EDT documented in this encounter Progress Notes * Alana France PA - 01/02/2018 2:10 PM EDT Cardiac Surgery Clinic Note: ID: [id number] Cardiac Surgery Attending: Dr. Govea Wood Processing Worker: Dr. Marie PCP: Dr. Epstein S: -Overall is feeling better since hospitalization. -Dry cough initially resolved after pericardiocentesis, however this has returned over the past week or two. Also reports dyspnea on exertion. -Last saw small package and bundle sorter clerk Dr. Marie 1 week ago, bispropolol was increased and losartan was added on. -Occasionally feels very lightheaded upon standing with HR in the 30s. -Is continuing cardiac rehab 3x weekly at [facility]. TTE: Small circumferential pericardial effusion, fibrinous. No evidence of constrictive physiology CXR: New small to moderate pleural effusion, no consolidation, sternal wires unchanged Current medications: Outpatient Prescriptions Marked as Taking for the 01/02/18 encounter (Office Visit) with Pablo Govea MD Medication Sig Dispense Refill ??? losartan (COZAAR) 25 mg Tablet Take 25 mg by mouth daily. ??? bisoprolol (ZEBETA) 5 mg Tablet Take 1 tablet by mouth daily. 30 tablet 3 ??? rosuvastatin (CRESTOR) 20 mg Tablet Take 20 mg by mouth daily. ??? acetaminophen (TYLENOL) 500 mg Tablet Take 2 tablets by mouth every 6 hours as needed for Pain.30 tablet 1 ??? chlorthalidone (HYGROTEN) 25 mg Tablet Take 25 mg by mouth daily. ??? selenium 50 mcg Tablet Take 200 mcg by mouth. ??? omeprazole (PRILOSEC) 20 mg Capsule, Delayed Release(E.C.) Take 20 mg by mouth daily. ??? lactobacillus rhamnosus, GG, (CULTURELLE) 10 billion cell Capsule Take 1 capsule by mouth daily. ??? aspirin 81 mg Tablet, Delayed Release (E.C.) Take 81 mg by mouth daily. ??? cholecalciferol, Vitamin D3, 1,000 unit Capsule Take by mouth. ??? glucosamine sulfate 500 mg Tablet Take 1,000 mg by mouth. O: Vitals: 01/02/18 1403 BP: 138/90 BP Location (NBP): Left arm Patient Position: Sitting BP Cuff Sizes: Adult (25-34 cm) Pulse: (!) 38 SpO2: 93% Weight: 105.7 kg (233 lb) Height: 182.9 cm (6') Physical exam: General: alert, conversant, sitting up on exam table Lungs: CTAB, non-labored breathing on RA, mildly decreased lung sounds throughout left lung dominguez Heart: Regular rate, regular rhythm, S1 S2 heard Abdomen: soft, NTND Ext: WWP, BLE with 2+ edema Incisions: sternotomy, pericardiocenteseis, and EVH sites well-healed Assessment/Plan: -Medication changes: -Discontinue Prednisone. -Decrease Bisoprolol to 2.5mg daily. -Add Lasix 20mg daily and potassium 20mEq K daily x 7 days. Was prescribed 14 pills of each in casepatient needs to increase to BID. -Patient to follow-up with Wood Processing Worker as discussed/arranged: 2 months from last visit. DW Attending Surgeon. Signed: Alana France PA-C [facility] Section of Cardiac Surgery 01/02/2018 documented in this encounter Plan of Treatment Upcoming Encounters Date Type Department Care Team (Late st Contact Info) Description 03/28/2024 10:00 AM EDT Hospital Encounter [place] [phone] Arrived documented as of this encounter Results * XR Chest PA & Lateral (Generic) (01/02/2018 3:05 PM EDT) Anatomical Region Laterality Modality Chest N/A Digital Radiogra phy Impressions 01/02/2018 3:21 PM EDT New small to moderate-sized left pleural effusion, accompanied by basilar opacity likely representing atelectasis. Preliminary report signed by: Henrique Prado at 01/02/2018 3:17 PM I have personally reviewed the image(s) and the residents interpretation and agree with the findings, Jesica Mann at 01/02/2018 3:21 PM Narrative 01/02/2018 3:21 PM EDT EXAMINATION: XR CHEST PA AND LATERAL (GENERIC) CLINICAL HISTORY: s/p CABGx2 (08/2017), pericardiocentesis (11/2017). ??Echo today with L pleural effusion, please eval for effusion TECHNIQUE: Standing PA and lateral chest radiograph COMPARISON: Chest radiograph 11/30/2017 FINDINGS: Unchanged median sternotomy wires. The right lung is clear with normal pulmonary vascular markings. New streaky left lung base opacity obscures the left hemidiaphragm. New small to moderate left pleural effusion. No right-sided pleural effusion. No pneumothorax. Unchanged cardiomegaly. Procedure Note Jesica Mann MD - 01/02/2018 EXAMINATION: XR CHEST PA AND LATERAL (GENERIC) CLINICAL HISTORY: s/p CABGx2 (08/2017), pericardiocentesis (11/2017). Echotoday with L pleural effusion, please eval for effusion TECHNIQUE: Standing PA and lateral chest radiograph COMPARISON: Chest radiograph 11/30/2017 FINDINGS: Unchanged median sternotomy wires. The right lung is clear with normal pulmonary vascular markings. New streaky left lung base opacity obscures the left hemidiaphragm. New small to moderate left pleural effusion. No right-sided pleural effusion. No pneumothorax. Unchanged cardiomegaly. IMPRESSION New small to moderate-sized left pleural effusion, accompanied bybasilar opacity likely representing atelectasis. Preliminary report signed by: Henrique Prado at 01/02/2018 3:17 PM I have personally reviewed the image(s) and the residents interpretationand agree with the findings, Jesica Mann at 01/02/2018 3:21 PM Pablo Govea MD IMG DX ORDERABLES documented in this encounter Visit Diagnoses Diagnosis Pericardial effusion Unspecified disease of pericardium Pericardial effusion Unspecified disease of pericardium documented in this encounter Care Teams Regional Extension Service Specialist Relationship Specialty Start Date End Date Devorah Epstein MD [address] [place] [address] PCP - General Family Medicine 09/01/17 documented as of this encounter
--- OUTSIDE RECORDS SUMMARY | 2024-01-22 03:01 | XMS_ITS | Encounter Summary ---
[place] [address] Care Team Providers Care Milanese Knitting Machine Operator Name Role Phone Devorah Epstein MD Primary Care Provider [phone] Encounter Details Date Type Department Care Team (Late st Contact Info) Description 12/02/2023 External [place] [id number] Social History Tobacco Use Types Packs/Day Years Used Date Smoking Tobacco: Former Smokeless Tobacco: Never Alcohol Use Standard Drinks/Week Comments No 0 (1 standard drink = 0.6 oz pur e alcohol) [facility] Utilities Answer Date Recorded In the [...] any time in the past 12 m ont, were you homeless or living in a residential (including now)? No 12/04/2023 DH IPV Inpatient [...] AM EDT Hospital Encounter Non-Invasive [place] [address] Arrived documented as of this encounter Procedures Procedure Name Priority Date/Time Associated Diagnosis Comments ECG SCAN Routine 12/02/2023 4:56 PM EDT documented in this encounter Results * Scan Doc: ECG (12/02/2023 4:56 PM EDT) Historical Provider MD RAMEY MGR SCAN EX T ORDR/RSLT documented in this encounter Visit Diagnoses Not on filedocumented in this encounter Care Teams Milanese Knitting Machine Operator Relationship Specialty Start Date End Date Devorah Epstein MD [facility] [address] [place] [address] PCP - General Family Medicine 09/01/17 documented as of this encounter
--- OUTSIDE RECORDS SUMMARY | 2024-01-22 03:01 | XMS_ITS | Encounter Summary ---
Author Organization [facility] [address] Care Team Providers Care Rn Military Name Role Phone Devorah Epstein MD Primary Care Provider [phone] Reason for Referral * Diagnostic Test (Routine) - Closed Specialty Diagnoses / Procedures Referred By Binh taylor Referred To Contact Cardiology Diagnoses Pericardial effusion Procedures Echocardiogram Transthoracic(Leb) Flower Smith PROJECT INSPECTOR [facility] [place] [address] [facility] [address] Referral ID Status Reason Start Date Expiration Date V isits Requested Visits Authorized [id number] Closed Specialty Service Requested 12/01/2017 12/01/2018 1 1 Reason for Visit * Diagnostic Test (Routine) - Closed Specialty Diagnoses / Procedures Referred By Binh taylor Referred To Contact Cardiology Diagnoses Pericardial effusion Procedures Echocardiogram Transthoracic(Leb) Flower Smith PROJECT INSPECTOR [facility] [place] [address] [facility] [place] [address] Referral ID Status Reason Start Date Expiration Date V isits Requested Visits Authorized [id number] Closed Specialty Service Requested 12/01/2017 12/01/2018 1 1 Encounter Details Date Type Department Care Team (Latest Contact Info) Description 01/02/2018 12:48 PM EDT - 01/02/2018 2:52 PM EDT Hospital Encounter Non-Invasive Cardiology Lab [facility] [place] [address] Flower Smith APRN [facility] [place] [address] Pericardial effusion Discharge Disposition: Home Social History Tobacco Use [...] (E.C.) Take 81 mg by mouth daily. furosemide (LASIX) 20 mg Tablet Take 1 tablet by mouth daily for 7 days. 14 tablet 01/02/2018 01/09/2018 potassium chloride (K-DUR/KLOR-CON) 20 mEq Tab Sust.Rel. Particle/Crystal Take 1 tablet by mouth daily for 7 days. 14 tablet 01/02/2018 01/09/2018 losartan (COZAAR) 25 mg Tablet Take 25 mg by mouth daily. 12/06/2023 bisoprolol (ZEBETA) 5 mg Tablet Take 1 [...] AM EDT Hospital Encounter Non[place] [phone] Arrived documented as of this encounter Procedures Procedure Name Priority Date/Time Associated Diagnosis Comments ECHO LMTD W/O CONTRAST W LMTD SPEC DOPP COLOR DOPP Routine 01/02/2018 1:36 PM EDT Pericardial effusion documented in this encounter Results * ECHO LMTD W/O CONTRAST W LMTD SPEC DOPP COLOR DOPP (01/02/2018 1:36 PM EDT) EF 80 HEARTLAB SYSTEM Anatomical Region Laterality Modality Other 01/02/2018 Narrative 01/02/2018 2:01 PM EDT Procedure: ?Transthoracic Echocardiogram Patient: ?KENDRICK VALENTINE P ?(Age): 1940(77y) Med Rec#: ? [id number] ?Sex: ?M ? Site Loc: ? [facility] [place] ?Ht / Wt: ??183(cm)/130.6(k Pt. Loc: ?Echo Lab ?BSA: ?2.49 Study Date: ?? 01/02/2018 ?Pt. Type: Outpatient Tape: ? Referring: MIHAI Reading: Sergei Chambers ([id number]) Ice Seller: Gracia Banegas Interpreting Fellow: Carol Gallardo Diagnosis: [...] E-wave Vmax ?0.8 ?m/sec ? MV deceleration [id number] ?msec ? MV A-wave Vmax ?0.6 ?m/sec [...] ? Mid-Inferior ?Normal ? Mid-Inferoseptal ?Normal ? Lyon-Septal ? Normal ? Lyon-Anterior ? Normal ? Lyon-Lateral ?Normal ? Lyon-Inferior ? Normal ? Lyon-Tip ?Normal ? This report has been electronically signed by: Sergei Chambers MD ? 01/02/2018 14:01:14 Images reviewed and interpretation verified [facility] Cardiac Ultrasound Laboratory Procedure Note Sergei Chambers MD - 01/02/2018 Procedure: Transthoracic Echocardiogram Patient: KENDRICK BALL(Age): 1940(77y) Med Rec#: [id number] Sex: M Site Loc: [facility] [place] Ht / Wt: 183(cm)/130.6(k Pt. Loc: Echo Lab BSA: 2.49 Study Date: 01/02/2018 Pt. Type: Outpatient Tape: Referring: MIHAI Reading: Sergei Chambers ([id number]) Ice Seller: Gracia Banegas Interpreting Fellow: Carol Gallardo Diagnosis: [...] MV E-wave Vmax 0.8 m/sec MV deceleration [id number] msec MV A-wave Vmax 0.6 m/sec MV [...] Normal Mid-Posterolateral Normal Mid-Inferior Normal Mid-Inferoseptal Normal Lyon-Septal Normal Lyon-Anterior Normal Lyon-Lateral Normal Lyon-Inferior Normal Lyon-Tip Normal This report has been electronically signed by: Sergei Chambers MD 01/02/2018 14:01:14 Images reviewed and interpretation verified [facility] Cardiac Ul[facility]ound [facility] documented in this encounter Visit Diagnoses Diagnosis Pericardial effusion Unspecified disease of pericardium documented in this encounter Care Teams Rn Military Relationship Specialty Start Date End Date Devorah Epstein MD [address] [place] [address] PCP - General Family Medicine 09/01/17 documented as of this encounter
--- OUTSIDE RECORDS SUMMARY | 2024-01-22 03:01 | XMS_ITS | Encounter Summary ---
[facility] Organization [facility] [place] [address] Care Team Providers Care Patient Ambassador Name Role Phone Devorah Epstein MD Primary Care Provider [phone] Reason for Referral * Diagnostic Test (Routine) - Closed Specialty Diagnoses / Procedures Referred By Binh taylor Referred To Contact Cardiology Diagnoses Pericardial effusion Procedures Echocardiogram Transthoracic(Leb) Vikash Smith APRN [facility] [place] [address] [facility] [place] [address] Referral ID Status Reason Start Date Expiration Date V isits Requested Visits Authorized [id number] Closed Specialty Service Requested 12/01/2017 12/01/2018 1 1 Reason for Visit * Auth/Cert Specialty Diagnoses / Procedures Referred By Binh taylor Referred To Contact Diagnoses Pericardial effusion Pericardial effusion [I31.3] n/a Procedures CARDIAC CATHETERIZATION Referral ID Status Reason Start Date Expiration Date Visits Re quested Visits Authorized [id number] 1 1 Encounter Details Date Type Department Care Team (Latest Contact Info) Description 11/30/2017 10:01 AM EDT - 12/01/2017 2:37 PM EDT Hospital Encounter Intermediate [place] [address] Kathie Panchal MD [facility] [place] [address] Pablo Govea MD [facility] [place] [address] Pericardial effusion (Primary Dx) Discharge Disposition: Home Social History Tobacco Use [...] Sign Reading Time Taken Comments Blood Pressure 130/67 12/01/2017 11:16 AM EDT Pulse 68 12/01/2017 11:16 AM EDT Temperature 36.7 ??C (98.1 ??F) 12/01/2017 11:16 AM E DT Respiratory Rate 18 12/01/2017 11:16 AM EDT Oxygen Saturation 99% 12/01/2017 11:16 AM EDT Inhaled Oxygen Concentration - - Weight 130.6 kg (288 lb) 11/30/2017 11:07 AM EDT Height 182.9 cm (6') 11/30/2017 11:07 AM EDT Body Mass Index 39.06 11/30/2017 11:07 AM EDT documented in this encounter Discharge Summaries * Vikash Smith, QI - 12/01/2017 10:55 AM EDT Inpatient - Discharge Summary Patient Name: Keegan Cabrera Patient Age: 77 y.o. Birthdate: 1940 Language: Frisian Race: White Ethnicity: Not nor Admit Date: 11/30/2017 Discharge Date: 12/01/17 Attending Physician: Pablo Govea MD Follow-up Recommendations for Providers: Please continue routine management of cardiovascular risk factors including blood pressure, lipids,glucose, etc. Please note any changes to medications. Patient to follow-up with PCP, Devorah Epstein MD, in 1-2 weeks. Patient to follow-up with Diesel Pile Hammer Operator, Dr Marie, in two weeks. Patient to follow-up with Cardiac Surgery, Dr. Pablo Govea, in ~ 4 weeks with an Echo. Inpatient Provider Contact Information: [facility] [address] FAX [phone] Discharge Diagnoses (Hospital Problems) Primary Diagnoses: Pericardial effusion s/p pericardiocentesis 11/30/17 Secondary Diagnoses: SVT Other Diagnoses (Chronic Problems): Active Non-Hospital Problems Diagnosis ??? Atherosclerosis of [place] coronary artery of [place] heart with angina pectoris Discharged to: Patient discharged to home Functional and Cognitive Status: stable Discharge Conditions/Prognosis: stable No past medical history on file. Past Surgical History: Procedure Laterality Date ??? PRO CABG, ARTERIAL, SINGLE N/A 09/11/2017 @CABG, USING ARTERIAL GRAFT;SINGLE ARTERIAL GRAFT (WRVU 33.75) performed by Pablo Govea MD at [facility] MAIN OR ??? PRO CABG, ARTERY-VEIN, SINGLE N/A 09/11/2017 @CABG, VENOUS & ARTERIAL GRAFT;SINGLE VEIN GRAFT (WRVU 3.61) performed by Pablo Govea MD at [facility] MAIN OR ??? PRO ENDOSCOPY W/VIDEO-ASST VEIN HARVEST, CABG Right 09/11/2017 ENDOSCOPIC HARVEST VEIN(S) FOR CABG (WRVU 0.31) performed by Pablo Govea MD at [facility] MAIN OR Prior To Admission Medications [...] planned for drainage of pericardial effusion in clinical lab assistant later today. Major Procedures/Operations: 11/30/17 Pericardiocentesis Hospital Course: Keegan Cabrera was admitted to [facility] on 11/30/2017 via the cardiac surgery clinic. He was brought to the clinical lab assistant where Dr. Panchal performed echo guided pericardiocentesis with 1100cc serous blood tinged fluid removed. Drain was removed in the clinical lab assistant. He tolerated the procedure and was brought [...] Pablo Govea and/or the Cardiac Surgery Physician Diesel Pile Hammer Operator Team may be reached at . Weight: [...] in 1-2 weeks. Patient to follow-up with Diesel Pile Hammer Operator, Dr. Marie, in two weeks. Patient to follow-up with Cardiac Surgery, Dr. Pablo Thomas. Jeferson as needed Future Appointments and Orders Future Orders Complete By Expires Echocardiogram Transthoracic(Leb) [[id number] Custom] 12/02/2017 06/03/2018 Process Instructions: If the Echocardiogram is to be PERFORMED in a DH location other than [place]--STOP and order [id number], Echocardiogram South/External. Scheduling Instructions: Questions: Is a Bubble Study requested?: Does the patient have Congenital Heart Disease?: Does patient require sedation?: GA rationale: Arrangements for VNA/home care: As above. Signed: VIKASH SMITH APRN [facility] [address] FAX [phone] Date: 12/01/2017 CC: Devorah Epstein MD No referring provider defined for this encounter. documented in this encounter Discharge Instructions * Patient Instructions* Vikash Smith APRN - 12/01/2017 1:45 PM EDT Discharge Instructions: ?? Call your doctor if: You have a fever of greater than 101 degrees, shaking chills, if you develop redness or drainage from your incision sites, or if you have questions. Please call your surgeon's office if you have any discharge or drainage from your chest incision. Your surgeon, Dr. Pablo Gvoea and/or the Cardiac Surgery Physician Diesel Pile Hammer Operator Team may be reached at . ?? [...] 1-2 weeks. ?? Patient to follow-up with Diesel Pile Hammer Operator, Dr. Marie, in two weeks. ?? [...] of this encounter Progress Notes * Mara Moon, RN - 12/01/2017 2:37 PM EDT Patient has been alert and oriented this shift. VSS. No reports of pain or discomfort. Has been ambulating SBA on unit. Discharge order acknowledged. IV and telemetry d/c'd. AVS printed and provided to patient. AVS and medications reviewed with patient. All questions answered. Pt discharged via wheel chair to [facility] with daughter in stable condition. * Sherlyn [...] guided Pericardiocentesis Baseline Frailty Assessment: Definitions from [place] Study of Health and Aging Clinical Frailty [...] Full report to follow. KATHIE PANCHAL MD search specialist Pager [phone] * Dalton Stevens MD - [...] consent was given. -Dalton Stevens MD (Pager #[phone]) documented in this encounter H&P Notes * [...] Health/Prescription Coverage: Primary Insurance: MEDICARE Secondary Insurance: BRANDON CYMRAES Prescription Coverage: yes Preferred Pharmacy: [facility] ? Primary Care Provider: Devorah Epstein MD [phone] ?? Patient/Caregiver Goals of Treatment: discharge to [...] of care planning. ?? Parvin Sim RN CM Pager [phone] / [phone] * Plan of Care - Alley Martinez [...] AM EDT Hospital Encounter Non[place] [address] Arrived documented as of this encounter Procedures Procedure Name Priority Date/Time Associated Diagnosis Comments OIL PIPELINE DISPATCHER SCAN 12/04/2017 12:00 AM EDT ECHO LMTD [...] 2:01 PM EDT Procedure: ?Transthoracic Echocardiogram Patient: ?DEBORAH VALENTINE P ?(Age): 1940(77y) Med Rec#: ? [id number] ?Sex: ?M ? Site Loc: ? [facility] ?Ht / Wt: ??183(cm)/130.6(k Pt. Loc: ?Echo Lab ?BSA: ?2.49 Study Date: ?? 01/02/2018 ?Pt. Type: Outpatient Tape: ? Referring: MIHAI Reading: Sergei Chambers ([id number]) Food Service Driver: Gracia Banegas Interpreting Fellow: Carol Gallardo Diagnosis: [...] E-wave Vmax ?0.8 ?m/sec ? MV deceleration ghan545.3 ?msec ? MV A-wave Vmax ?0.6 ?m/sec [...] ? Mid-Inferior ?Normal ? Mid-Inferoseptal ?Normal ? [place]-Septal ? Normal ? [place]-Anterior ? Normal ? [place]-Lateral ?Normal ? [place]-Inferior ? Normal ? [place]-Tip ?Normal ? This report has been electronically signed by: Sergei Chambers MD ? 01/02/2018 14:01:14 Images reviewed and interpretation verified [facility] Procedure Note Sergei Chambers MD - 01/02/2018 Procedure: Transthoracic Echocardiogram Patient: DEBORAH BALL(Age): 1940(77y) Med Rec#: [id number] Sex: M Site Loc: [facility] Ht / Wt: 183(cm)/130.6(k Pt. Loc: Echo Lab BSA: 2.49 Study Date: 01/02/2018 Pt. Type: Outpatient Tape: Referring: MIHAI Reading: Sergei Chambers ([id number]) Food Service Driver: Gracia Banegas Interpreting Fellow: Carol Gallardo Diagnosis: [...] MV E-wave Vmax 0.8 m/sec MV deceleration rzbb752.3 msec MV A-wave Vmax 0.6 m/sec MV [...] Normal Mid-Posterolateral Normal Mid-Inferior Normal Mid-Inferoseptal Normal [place]-Septal Normal [place]-Anterior Normal [place]-Lateral Normal [place]-Inferior Normal [place]-Tip Normal This report has been electronically signed by: Sergei Chambers MD 01/02/2018 14:01:14 Images reviewed and interpretation verified [facility] Vikash Smith APRN ECHO ORDERABLES * SCAN DOC: OIL PIPELINE DISPATCHER (12/04/2017 12:00 AM EDT) Anatomical Region Laterality Modality Other Narrative 12/04/2017 12:00 AM EDT Ordered by an unspecified provider. Scanning Provider MEDIA MGR SCAN EXT O RDR/RSLT * ECHO LMTD W/O CONTRAST W LMTD SPEC DOPP COLOR DOPP (12/01/2017 9:27 AM EDT) Pathologist [facility] EF [facility]ART[facility] Anatomical Region Laterality Modality Other 12/01/2017 Narrative 12/01/2017 10:11 AM EDT Procedure: ?Transthoracic Echocardiogram Patient: ?DEBORAH VALENTINE P ?(Age): 1940(77y) Med Rec#: ? [id number] ?Sex: ?M ? Site Loc: ? [facility] ?Ht / Wt: ??182(cm)/131(kg) Pt. Loc: ?Adult Floor ? BSA: ?2.48 Study Date: ?? 12/01/2017 ?Pt. Type: Inpatient Tape: ? Referring: Pablo Govea Reading: Sam Ricci ([id number]) Food Service Driver: Jaswant Mata RDCS Diagnosis: *Limited post pericardiocentesis BP: ? 142/67 [...] 12/01/2017 10:10:49 Images reviewed and interpretation verified [facility] Procedure Note Sam Ricci MD - 12/01/2017 Procedure: Transthoracic Echocardiogram Patient: DEBORAH BALL(Age): 1940(77y) Med Rec#: [id number] Sex: M Site Loc: [facility] Ht / Wt: 182(cm)/131(kg) Pt. Loc: Adult Floor BSA: 2.48 Study Date: 12/01/2017 Pt. Type: Inpatient Tape: Referring: Pablo Govea Reading: Sam Ricci ([id number]) Food Service Driver: Jaswant Mata RDCS Diagnosis: *Limited post pericardiocentesis BP: 142/67 HR: [...] 12/01/2017 10:10:49 Images reviewed and interpretation verified [facility] Pablo Govea MD ECHO [...] (11/30/2017 4:29 PM EDT) Fluid Review Report [id number] ? Location: [facility]; [facility]; The signing pathologist has (i) examined the relevant preparation(s) for the specimen(s) and (ii) rendered or confirmed the diagnosis(es). . ? Fluid Review DIAGNOSIS Atypical lymphoid infiltrate seen. Electronically signed by: ??Vivian DORSEY, Miguel A Verified: ??12/01/2017 ?Hematopathologist Performed at: ??-[facility] Dept. of Pathology, [place], [place] DISCUSSION An atypical appearing lymphoid infiltrate is noted, as described below. This may represent a reactive process, however flow cytometry is required to rule out the presence of a lymphoproliferative disorder. ADDITIONAL STUDIES Microscopic Description: ?? WBC/ul: ?2088 ?2088 cells counted by automated analyzer. ?# ?? [...] effusion. Indication for Study: ?? Diagnostic/therapeutic . [facility] 11/30/2017 4:29 PM EDT Gerald Arroyo MD PATHOLOGY/CYTOLOGY O RDERABLES Performing Organization Address City/[facility]/ZIP Co de Phone Number [facility] [place] [address] * AFB culture (11/30/2017 3:42 PM EDT) Acid Fast Bacilli Culture No Acid Fast Bacilli isolated [facility] Acid Fast Stain No Acid Fast Bacilli seen [facility] Pericardial fluid specimen (specimen) 11/30/2017 3:42 PM EDT 11/30/2017 3:42 PM EDT Narrative Resulting Agency Comment Spec In Lab Pablo Govea MD MICROBIOLOGY - GENE RAL ORDERABLES Performing Organization Address [facility]/ZIP Co de Phone Number [facility] [place] [address] * Body Fluid HOLD (11/30/2017 2:10 PM EDT) Hold BF Type Sample in lab. [facility] Body fluid specimen (specimen) Other / Unknown 11/30/2017 2:10 PM EDT 11/30/2017 3:45 PM EDT Pablo Govea MD BODY FLUIDS AND STO OLS ORDERABLES Performing Organization Address [facility]/ZIP Co de Phone Number [facility] [place] [address] * Cholesterol Level Body Fluid Pericardial Fluid (11/30/2017 2:10 PM EDT) Chol, BF 77 mg/dL [facility] Comment: No reference range is available for the specimen type submitted. ??The performance of this assay for the submitted type has not been validated and results should be interpreted accordingly and with regard to the patient's clinical status. Chol, BF Type Pericardial fl M [facility] Pericardial fluid specimen (specimen) 11/30/2017 2:10 PM EDT 11/30/2017 3:28 PM EDT Narrative Resulting Agency Comment Spec In Lab Pablo Govea MD BODY FLUIDS AND STO OLS ORDERABLES Performing Organization Address [facility] Phone Number [facility] [place] [address] * Lactate Dehydrogenase Body Fluid Pericardial Fluid (11/30/2017 2:10 PM EDT) LDH BF 247 unit/L [facility] Comment: No reference range is available for the specimen type submitted. ??The performance of this assay for the submitted type has not been validated and results should be interpreted accordingly and with regard to the patient's clinical status. LDH, BF Type Pericardial fl [facility] Pericardial fluid specimen (specimen) 11/30/2017 2:10 PM EDT 11/30/2017 3:28 PM EDT Narrative Resulting Agency Comment Spec In Lab Pablo Govea MD BODY FLUIDS AND STO OLS ORDERABLES Performing Organization Address [facility] Number [facility] [place] [address] * Protein Level Body Fluid Pericardial Fluid (11/30/2017 2:10 PM EDT) Protein, BF 5.3 gm/dL [facility] Comment: There is no reference range available for the specimen type submitted. For determination of transudative vs. exudative pleural effusions: Transudates: Pleural Total Protein/Serum Total Protein <0.5 g/dL. Exudates: Pleural Total Protein/Serum Total Protein >0.5 g/dL. Protein BF Type Pericardial fl [facility] Pericardial fluid specimen (specimen) 11/30/2017 2:10 PM EDT 11/30/2017 3:28 PM EDT Narrative Resulting Agency Comment Spec In Lab Pablo Govea MD BODY FLUIDS AND STO OLS ORDERABLES Performing Organization Address [facility]/ZIP Co de Phone Number [facility] [place] [address] * Glucose Level Body Fluid Pericardial Fluid (11/30/2017 2:10 PM EDT) Glucose, BF 117 mg/dL [facility] Comment: No reference range is available for the specimen type submitted. ??The performance of this assay for the submitted type has not been validated and results should be interpreted accordingly and with regard to the patient's clinical status. Gluc, BF Type Pericardial fl M [facility] Pericardial fluid specimen (specimen) 11/30/2017 2:10 PM EDT 11/30/2017 3:28 PM EDT Narrative Resulting Agency Comment Spec In Lab Pablo Govea MD BODY FLUIDS AND STO OLS ORDERABLES Performing Organization Address [facility] Co de Phone Number [facility] [place] [address] * Cell Count Body Fluid Pericardial Fluid (11/30/2017 2:10 PM EDT) Spec Type BF Pericardial Fl MA [facility] Color BF Red [facility] Appearance BF Cloudy [facility] WBC BF Ct 2,089 /[facility] Comment: Guideline listed below apply to all body fluids. Differentials on BAL specimens are performed by the Cytology lab section. When Body Fluid WBC count is greater than Zero, a smear is made and scanned. All scan information is correlated with numeric results prior to being released to patients chart. Polymorph % 1 % [facility] Comment: Polymorphonuclear cell percent and absolute values may contain Neutrophils, Eosinophils, and Basophils. Body fluid smear will be scanned manually for concordance. Mononuc % 99 % [facility] Comment: Mononuclear cell percent and absolute values may contain Lymphocytes and Monocytes. Body fluid smear will be scanned manually for concordance. Polymorph BF ABS 22 /[facility] Comment: Polymorphonuclear cell percent and absolute values may contain Neutrophils, Eosinophils, and Basophils. Body fluid smear will be scanned manually for concordance. Mononuc ABS 2,067 /mcl [facility] Comment: Mononuclear cell percent and absolute values may contain Lymphocytes and Monocytes. Body fluid smear will be scanned manually for concordance. Pericardial fluid specimen (specimen) 11/30/2017 2:10 PM EDT 11/30/2017 3:28 PM EDT Narrative Resulting Agency Comment Spec In Lab Pablo Govea MD BODY FLUIDS AND STO OLS ORDERABLES Performing Organization Address [facility]/ZIP Co de Phone Number [facility] [place] [address] * ABORH Recheck Status (11/30/2017 10:20 AM EDT) ABORH Type Recheck Completed [facility] Blood specimen (specimen) 11/30/2017 10:20 AM EDT 11/30/2017 10:31 AM EDT Narrative Resulting Agency Comment Spec In Lab David YE BLOOD BANK LAB O RDERABLES Performing Organization Address [facility] Co de Phone Number [facility] [place] [address] * Antibody screen (11/30/2017 10:20 AM EDT) Ab Screen Interp Negative [facility] Expires at [id number] on: 12/03/2017 [facility] Blood specimen (specimen) 11/30/2017 10:20 AM EDT 11/30/2017 10:31 AM EDT Narrative Resulting Agency Comment Spec In Lab David YE BLOOD B[facility] LAB O RDERABLES Performing Organization Address City/[facility]/ZIP Co de Phone Number [facility] [place] [address] * ABO/Rh Typing (11/30/2017 10:20 AM EDT) ABORH Type B Pos [facility] Blood specimen (specimen) 11/30/2017 10:20 AM EDT 11/30/2017 10:31 AM EDT Narrative Resulting Agency Comment Spec In Lab David Larissa YE BLOOD BANK LAB O RDERABLES [facility] [place] [address] * (ABNORMAL) Differential, Automated (11/30/2017 10:20 AM EDT) Neutrophils % 73.4 % [facility] Neutr Abs (ANC) 4.30 1.70 - 6.10 x10(3)/[facility] Lymphocytes % 13.3 % [facility] Lymphocytes Abs 0.8(L) 0.9 - 3.2 x10(3)/[facility] Monocytes % 9.2 % [facility] Monocyte Abs 0.5 0.3 - 0.9 x10(3)/[facility] Eosinophils % 3.1 % [facility] Eosinophils Abs 0.2 0.0 - 0.4 x10(3)/[facility] Basophils % 0.5 % [facility] Basophils Abs 0.0 0.0 - 0.1 x10(3)/[facility] Immature Gran % 0.50 % [facility] Comment: Immature granulocytes(IG's)percentage and absolute count will include metamyelocytes, myelocytes, and promyelocytes. Blood smears from CBCs yielding IG's will be scanned manually for concordance. If this scan disagrees with the automated IG or if promyelocytes are noted, a manual differential will be performed. Steph Gran Abs 0.03 0.00 - 0.04 x10(3)/[facility] Blood specimen (specimen) 11/30/2017 10:20 AM EDT 11/30/2017 10:31 AM EDT Narrative Resulting Agency Comment Spec In Lab David YE HEMATOLOGY ORDER KARENA Performing Organization Address City/[facility]/ZIP Co de Phone Number [facility] [place] [address] * (ABNORMAL) Hemogram (11/30/2017 10:20 AM EDT) WBC 5.9 4.0 - 9.5 x10(3)/[facility] RBC 4.43(L) 4.58 - 5.54 x10(6)/[facility] Hemoglobin 11.4(L) 13.7 - 16.5 gm/dL [facility] Hematocrit 36.8(L) 40.5 - 48.5 % [facility] MCV 83.1 82.9 - 93.1 [facility] MCH 25.7(L) 27.5 - 32.1 pg [facility] MCHC 31.0(L) 32.0 - 35.7 gm/dL [facility] Platelets 179 145 - 357 x10(3)/[facility] LABORATORY RDWSD 41.1 36.0 - 45.0 [facility] RDWCV 13.6 11.4 - 13.8 % [facility] MPV 9.5 7.6 - 12.9 [facility] nRBC % Auto 0.0 % [facility] nRBC Abs Auto 0.000 0.000 - 0.000 x10(3)/[facility] Blood specimen (specimen) 11/30/2017 10:20 AM EDT 11/30/2017 10:31 AM EDT Narrative Resulting Agency Comment Spec In Lab David YE HEMATOLOGY ORDER KARENA Performing Organization Address City/[facility]/ZIP Co de Phone Number [facility] [place] [address] * (ABNORMAL) Basic Metabolic Panel (non-fasting) (11/30/2017 10:20 AM EDT) Glucose Lvl 128 65 - 199 mg/dL [facility] Comment:Diabetes: >=200 mg/d L plus symptoms BUN 17 10 - 20 mg/dL [facility] Creatinine 1.29 0.80 - 1.50 mg/dL [facility] Sodium 142 135 - 145 mmol/L [facility] Potassium 3.7 3.5 - 5.0 mmol/L [facility] Comment: Please note: ??Patients with WBC >100,000 may have falsely elevated Potassium levels. ??For accurate Potassium quantification in these patients send serum separator tube (gold top) for subsequent determinations. ??Contact the Clinical Chemistry Laboratory if there are any questions. Chloride 103 98 - 107 mmol/L [facility] CO2 26 22 - 31 mmol/L [facility] Anion Gap 13 5 - 15 mmol/L [facility] Calcium 10.0 8.5 - 10.5 mg/dL [facility] Estimated GFR 54(L) >=60 [facility] Comment: The reported eGFR should be multiplied by 1.2 for patients. The MDRD is not an appropriate measure of renal function for patients with body mass extremes or in patients with acute kidney failure. [email or web address] Blood specimen (specimen) 11/30/2017 10:20 AM EDT 11/30/2017 10:31 AM EDT Narrative Resulting Agency Comment Spec In Lab Pablo Govea MD CHEMISTRY ORDERABLE S [facility] [place] [address] documented in this encounter Visit Diagnoses Diagnosis Pericardial effusion- Primary Unspecified disease of pericardium [...] Given 12/01/2017 9:50 AM EDT 25 mg metoprolol tartrate (LOPRESSOR) tablet 25 mg 25 mg, Oral, EVERY 8 HOURS, First dose (after last modification) on Mon11/30/17 at 1630, Until Discontinued, Routine Given 12/01/2017 9:50 AM EDT 25 mg Given 11/30/2017 11:53 PM EDT 25 mg Given 11/30/2017 4:37 PM EDT 25 mg ondansetron (ZOFRAN) injection 4-8 mg 4-8 [...] Given 12/01/2017 9:00 AM EDT 20 mg predniSONE (DELTASONE) tablet 40 mg 40 mg, Oral, ONCE, 1 dose, On Mon11/30/17 at 1630, Routine Given 11/30/2017 4:41 PM EDT 40 mg rosuvastatin (CRESTOR) tablet 20 [...] 1630, Routine 1641 (Given - Provider: Sherlyn Tamayo, LENY) rosuvastatin (CRESTOR) tablet 20 mg 20 mg, Oral, EVERY EVENING, First dose on Kimberly 11/30/17 at 1700, Until Discontinued, Routine 1641 (Given - Provider: Sherlyn Tamayo, LENY) senna-docusate (PERICOLACE) 8.6-50 mg per tablet 2 tablet 2 tablet, Oral, DAILY, First dose on Mon11/30/17 at 1630, Until Discontinued, Routine 1638 (Given - Provider: Sherlyn Tamayo RN) 0900 (Not Given - Provider: Mara Moon, LENY - Reason: Patient/family refused) sodium chloride 0.9 % flush 5 mL 5 mL, Intravenous, 2 TIMES DAILY, First dose on Kimberly 11/30/17 at 2100, Until Discontinued, Routine 2100 (Given - Provider: Alley Martinez RN) 0951 (Given - Provider: Mara Moon, LENY) PRN Medication Order 11/29/2017 11/30/2017 12/01/2017 acetaminophen [...] first. documented in this encounter Care Teams Patient Ambassador Relationship Specialty Start Date End Date Devorah Epstein MD [address] [place] [address] PCP - General Family Medicine 09/01/17 documented as of this encounter
--- OUTSIDE RECORDS SUMMARY | 2024-01-22 03:01 | XMS_ITS | Encounter Summary ---
[facility] [place] [address] Care Team Providers Care Supervisor Blood Name Role Phone Devorah Epstein MD Primary Care Provider [phone] Reason for Referral * Diagnostic Test (Emergency) - Closed Specialty Diagnoses / Procedures Referred By Binh taylor Referred To Contact Cardiology Diagnoses Pericardial effusion Procedures Echocardiogram Transthoracic(Leb) David Green PA [facility] [place] [address] [facility] [place] [address] Referral ID Status Reason Start Date Expiration Date V isits Requested Visits Authorized [id number] Closed Specialty Service Requested 11/30/2017 11/30/2018 1 1 Reason for Visit * Auth/Cert Specialty Diagnoses / Procedures Referred By Binh taylor Referred To Contact Diagnoses Pericardial effusion Pericardial effusion [I31.3] n/a Procedures CARDIAC CATHETERIZATION Referral ID Status Reason Start Date Expiration Date Visits Re quested Visits Authorized [id number] 1 1 Encounter Details Date Type Department Care Team (Late st Contact Info) Description 11/30/2017 8:15 AM EDT Office Visit [place] [address] David Green PA [facility] [place] [address] Pericardial effusion (Primary Dx) Social History Tobacco Use Types Packs/Day Years [...] Sign Reading Time Taken Comments Blood Pressure 148/90 11/30/2017 8:52 AM EDT Pulse 92 11/30/2017 8:52 AM EDT Temperature - - Respiratory Rate - - Oxygen Saturation 96% 11/30/2017 8:52 AM EDT Inhaled Oxygen Concentration - - Weight 130.6 kg (288 lb) 11/30/2017 8:52 AM EDT Height 182.9 cm (6') 11/30/2017 8:52 AM EDT Body Mass Index 39.06 11/30/2017 8:52 AM EDT documented in this encounter Progress Notes * David Green PA - 11/30/2017 8:15 AM EDT Cardiac Surgery Clinic Note: ID: [id number] Cardiac Surgery Attending: Dr. Govea S: Patient seen at OSH for pericardial effusion seen on chest CT. He had a cabg x 2 on 09/11/17. Comes in with increased SOB. No syncope. Current medications: No outpatient prescriptions have been marked as taking for the 11/30/17 encounter (Appointment) with Pablo Govea MD. O: There were no vitals filed for this visit. Physical exam: General: A&Ox3. NAD Lungs: CTABL Heart: RRR. Diminished heart sounds Abdomen: +BS. NT, ND Ext: Moves all extremities. Incisions: C/D/I Assessment/Plan: - Will obtain TTE this AM. - Will obtain labs, T&S. 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 - Admit to Cardiac Surgery. DW Attending Surgeon. Signed: CASSI NICHOLS [facility] Section of Cardiac Surgery 11/30/2017 documented in this encounter Plan of Treatment Upcoming Encounters Date Type Department Care Team (Late st Contact Info) Description 03/28/2024 10:00 AM EDT Hospital Encounter Non-Invasive [place] [address] Arrived documented as of this encounter Procedures Procedure Name Priority Date/Time Associated Diagnosis Comments CARDIAC CATHETERIZATION Routine 12/01/19 18 2:25 PM EDT Pericardial effusion ECHO COMPLETE STAT 11/30/2017 9:50 AM EDT Pericardial effusion documented in this encounter Results * CARDIAC CATHETERIZATION (11/30/2017 2:25 PM EDT) Anatomical Region Laterality Modality Other Narrative 12/05/2017 10:14 AM EDT ?[facility] ? Cardiac Catheterization/Intervention Report ? Patient Name: Keegan Cabrera Ivan ? Procedure Date: 11/30/2017 ? A #: [id number] ? Primary Physician: Ansley, Mario V ? Case #: [id number] ? File Name: [id number] ? Catheterization Order Number: [id number] ? [facility] ? Final Report [place], [place] ? Patient Name: ? Peter P. Chernovetz ?ID#: ?[id number] ? : ?1940 ? Procedure Date: ? November 30, 2017 ? Case #: ? [id number] ? Room: ? 2 ? Case Physician: ? Mario Panchal M.D. ? Start: ?12:36 ? Admission: ??11/30/2017 ? Referring Physician: ??Devorah Epstein M.D. ? Procedures: ?* Right Heart Catheterization ?* Oximetry ?* Pericardiocentesis ?* Transthoracic Echo During Cath ? History ?Keegan Cabrera is a 77 year old man. He has hypertension. The ?patient has hypercholesterolemia managed with lipid therapy. He has a ?prior history of coronary artery disease. The patient had recent coronary ?artery bypass surgery. He has a history of dyspnea. The patient also has ?a history of a heart murmur. Prior to the initiation of this procedure, ?the patient was designated as ASA Class III. ? Patient Status at Catheterization: ?The status of the diagnostic procedure was Elective. ? Technique: ?A 7Fr sheath was inserted in the right femoral vein utilizing the ?Seldinger technique. A 5Fr sheath was inserted in the sub-xyphoid ?utilizing the Seldinger technique. Right heart catheterization was ?performed utilizing a 7Fr Balloon wedge catheter. Radiation: Fluoro time ?was 10.3 minutes, dose area product was 47,096 mGYcm2 and air kerma was ?419 mGY. ? Hemodynamics: ?Right Heart Pressures ? Hemodynamics: ? Syst Diast ? EDP ?a ?v ? m ?RA ? 12 ?10 ? 8 ?RV 38 ?10 ?PA 39 ?17 ?26 ?PCW ?19 ?19 ?15 ? Hemodynamic Profile: ?Profile 1 ?CO ? 7.12 ?CI ? 2.86 ?TSR ? 1,213 ?SVR ? 1,124 ?TPR ?292 ?PVR ?124 ?Technique ?Estimated Jose Miguel ?Left Heart Pressures ? Resting: ? Syst Diast ? EDP ?a ?v ? m ?Ao 142 ?? 95 ?108 ?Comments: ??AO pressure is NIBP. ? Oximetry: ?Location ? %Sat ?Location ?%Sat ?Superior Vena Cava ? 68.0 ?Main Pulmonary Artery ?? 65.0 ?O2 sat on room air ? 95.0 ?No evidence of a significant shunt was noted. ? Indication for Selected Procedures: ?Right Heart catheterization was initiated for Other heart disease. ? Conclusions: ?* No evidence of a significant shunt ?* Mild pulmonary hypertension ? Complications/Events: ?The patient had no complications during these procedures. ? Comments: ?Under ultrasound guidance, utilizing a modification of the Seldinger ?Technique via the sub-xiphoid approach a pigtail drain was placed in the ?pericardial space. ??A total of ~1200 ml of blood tinged pericardial fluid ?was drained. ??At case completion the repeat TTE demonstrated absence of a ?percardial effusion. ??The drain was then removed. ?Successful pericardiocentesis. ?The attending physician was present for the entire procedure. ?Dr. Mario Panchal M.D. was present during the moderate sedation ?intraservice time as documented by the sedation nurse. ??Case time = 01:39. ?Dr. Mario Panchal M.D. performed the right heart catheterization, ?pericardiocentesis, transthoracic echo ??and oximetry. ? Mario Panchal M.D. ? Electronically Signed by: Mario Panchal M.D. ? Report Finalized: 12/05/2017 ??10:08 ? Report Last Ammended: 01/22/2018 ??12:14 ? Procedure Note Mario Panchal MD - 01/22/2018 [facility] Cardiac Catheterization/Intervention Report Patient Name: Keegan Cabrera Procedure Date: 11/30/2017 A #: [id number] Primary Physician: Mario Panchal V Case #: [id number] File Name: [id number] Catheterization Order Number: [id number] [facility] FinalReport [place], [place] Patient Name: Keegan Cabrera ID#:[id number] :1940 Procedure Date: November 30, 2017 Case #: [id number] Room: 2 Case Physician: Mario Panchal M.D. Start: 12:36 Admission:11/30/2017 Referring Physician: Devorah Epstein M.D. Procedures: * Right Heart Catheterization * Oximetry * Pericardiocentesis * Transthoracic Echo During Cath History Keegan Cabrera is a 77 year old man. He has hypertension. The patient has hypercholesterolemia managed with lipid therapy. He hasa prior history of coronary artery disease. The patient had recentcoronary artery bypass surgery. He has a history of dyspnea. The patient alsohas a history of a heart murmur. Prior to the initiation of thisprocedure, the patient was designated as ASA Class III. Patient Status at Catheterization: The status of the diagnostic procedure was Elective. Technique: A 7Fr sheath was inserted in the right femoral vein utilizing the Seldinger technique. A 5Fr sheath was inserted in the sub-xyphoid utilizing the Seldinger technique. Right heart catheterization was performed utilizing a 7Fr Balloon wedge catheter. Radiation: Fluorotime was 10.3 minutes, dose area product was 47,096 mGYcm2 and air kermawas 419 mGY. Hemodynamics: Right Heart Pressures Hemodynamics: Syst Diast EDP a v m RA 12 10 8 RV 38 10 PA 39 17 26 PCW 19 19 15 Hemodynamic Profile: Profile 1 CO 7.12 CI 2.86 TSR 1,213 SVR 1,124 TPR 292 PVR 124 Technique Estimated Jose Miguel Left Heart Pressures Resting: Syst Diast EDP a v m Ao 142 95 108 Comments: AO pressure is NIBP. Oximetry: Location %Sat Location %Sat Superior Vena Cava 68.0 Main Pulmonary Artery 65.0 O2 sat on room air 95.0 No evidence of a significant shunt was noted. Indication for Selected Procedures: Right Heart catheterization was initiated for Other heart disease. Conclusions: * No evidence of a significant shunt * Mild pulmonary hypertension Complications/Events: The patient had no complications during these procedures. Comments: Under ultrasound guidance, utilizing a modification of the Seldinger Technique via the sub-xiphoid approach a pigtail drain was placed inthe pericardial space. A total of ~1200 ml of blood tinged pericardialfluid was drained. At case completion the repeat TTE demonstrated absenceof a percardial effusion. The drain was then removed. Successful pericardiocentesis. The attending physician was present for the entire procedure. Dr. Mario Panchal M.D. was present during the moderate sedation intraservice time as documented by the sedation nurse. Case time =01:39. Dr. Mario Panchal M.D. performed the right heart catheterization, pericardiocentesis, transthoracic echo and oximetry. Mario Panchal M.D. Electronically Signed by: Mario Panchal M.D. Report Finalized: 12/05/2017 10:08 Report Last Ammended: 01/22/2018 12:14 Pablo Govea MD CARDIAC CATH ORDERA BLES * (ABNORMAL) Basic Metabolic Panel (non-fasting) (11/30/2017 10:20 AM EDT) Glucose Lvl 128 65 - 199 mg/dL [facility] Comment:Diabetes: >=200 mg/d L plus symptoms BUN 17 10 - 20 mg/dL [facility] Creatinine 1.29 0.80 - 1.50 mg/dL [facility] Sodium 142 135 - 145 mmol/L [facility] Potassium 3.7 3.5 - 5.0 mmol/L [facility] Comment: Please note: ??Patients with WBC >100,000 may have falsely elevated Potassium levels. ??For accurate Potassium quantification in these patients send serum separator tube (gold top) for subsequent determinations. ??Contact the Clinical Chemistry Laboratory if there are any questions. Chloride 103 98 - 107 mmol/L [facility] CO2 26 22 - 31 mmol/L [facility] Anion Gap 13 5 - 15 mmol/L [facility] Calcium 10.0 8.5 - 10.5 mg/dL [facility] Estimated GFR 54(L) >=60 [facility] Comment: The reported eGFR should be multiplied by 1.2 for patients. The MDRD is not an appropriate measure of renal function for patients with body mass extremes or in patients with acute kidney failure. http://SupplyBid/DHnkdep http://SupplyBid/DHMCnkf Blood specimen (specimen) 11/30/2017 10:20 AM EDT 11/30/2017 10:31 AM EDT Narrative Resulting Agency Comment Spec In Lab Pablo Govea MD CHEMISTRY ORDERABLE S Performing Organization Address City/State/[facility] Co de Phone Number [facility] [place] [address] * ECHO COMPLETE (11/30/2017 9:50 AM EDT) Anatomical Region Laterality Modality Other 11/30/2017 Narrative 11/30/2017 10:33 AM EDT Procedure: ?Transthoracic Echocardiogram Patient: ?DEBORAH Thomas ?(Age): 1940(77y) Med Rec#: ? [id number] ?Sex: ?M ? Site Loc: ? [place] ?Ht / Wt: ??183(cm)/131(kg) Pt. Loc: ?Adult Floor ? BSA: ?2.49 Study Date: ?? 11/30/2017 ?Pt. Type: Outpatient Tape: ? Referring: CHENTORYCKIDANIELJ Reading: Grant Rubin ([id number]) Solution Strategist: Grant Hoffman Solution Strategist: Louann Gibbons Diagnosis: *ICD-10-PCS Pericardial effusion (noninflammatory) [...] 11/30/2017 10:32:38 Images reviewed and interpretation verified [facility] Cardiac Ultrasound Laboratory Procedure Note Grant Rubin MD - 11/30/2017 Procedure: Transthoracic Echocardiogram Patient: DEBORAH Thomas DOB(Age): 1940(77y) Med Rec#: [id number] Sex: M Site Loc: [place] Ht / Wt: 183(cm)/131(kg) Pt. Loc: Adult Floor BSA: 2.49 Study Date: 11/30/2017 Pt. Type: Outpatient Tape: Referring: [facility] Reading: Grant Rubin ([id number]) Solution Strategist: Grant Hoffman Solution Strategist: Louann Gibbons Diagnosis: *ICD-10-PCS Pericardial effusion (noninflammatory) [...] 11/30/2017 10:32:38 Images reviewed and interpretation verified [facility] Cardiac Ultrasound Laboratory Pablo Govea MD ECHO ORDERABLES documented in this encounter Visit Diagnoses Diagnosis Pericardial effusion- Primary Unspecified disease of pericardium Pericardial effusion Unspecified disease of pericardium documented in this encounter Care Teams Supervisor Blood Relationship Specialty Start Date End Date Devorah Epstein MD [facility] [address] [place] [address] PCP - General Family Medicine 09/01/17 documented as of this encounter
--- OUTSIDE RECORDS SUMMARY | 2024-01-22 03:01 | XMS_ITS | Encounter Summary ---
[facility] [place] [address] Care Team Providers Care Automation Engineering Manager Name Role Phone Devorah Epstein MD Primary Care Provider [phone] Encounter Details Date Type Department Care Team (Late st Contact Info) Description 10/17/2017 2:40 PM EDT Office Visit [place] [address] Pablo Govea MD [facility] DR [place] [address] S/P CABG (coronary artery bypass graft) Social History Tobacco Use Types Packs/Day Years [...] Sign Reading Time Taken Comments Blood Pressure 140/65 10/17/2017 2:24 PM EDT Pulse 82 10/17/2017 2:24 PM EDT Temperature - - Respiratory Rate - - Oxygen Saturation 98% 10/17/2017 2:24 PM EDT Inhaled Oxygen Concentration - - Weight 127 kg (280 lb) 10/17/2017 2:24 PM EDT Height 185.4 cm (6' 1) 10/17/2017 2:24 PM EDT Body Mass Index 36.94 10/17/2017 2:24 PM EDT documented in this encounter Progress Notes * Pablo Govea MD - 10/17/2017 2:40 PM EDT Cardiac surgery follow-up note Mr. Woods visits is status post his CABG He has minimal pain No new dyspnea on exertion No anginal type symptoms He is eating food moving his bowels without difficulty He is afebrile vital signs are stable His lungs are clear His wound is clean dry and intact Sternum feels stable He has a chest x-ray is clear His EKG shows no acute changes Overall impression Mr. Alvares of its is recovering as expected from his CABG Plan he is okay to drive He can lift things that are up to 20 pounds for 1 month then he has no restrictions He should participate in cardiac rehab He should follow-up if he has any new questions or concerns documented in this encounter Plan of Treatment Upcoming Encounters Date Type Department Care Team (Late st Contact Info) Description 03/28/2024 10:00 AM EDT Hospital Encounter Non[place] [address] Arrived documented as of this encounter Procedures Procedure Name Priority Date/Time Associated Diagnosis Comments EKG 12-LEAD Routine 10/17/2017 2:33 PM EDT documented in this encounter Results * EKG 12 Lead (10/17/2017 2:33 PM EDT) Ventricular rate 79 BPM MUSE SYSTEM Atrial Rate 79 BPM MUSE SYSTEM P-R Interval 144 ms MUSE SYSTEM QRS Duration 98 ms MUSE SYSTEM Q-T Interval 392 ms MUSE SYSTEM QTC Calculated (Bezet) 449 ms MUSE SYSTEM Calculated R [place] 58 degrees MUSE SYSTEM Calculated T [place] -159 degrees MUSE SYSTEM INTERPRETATION Normal sinus rhythm T wave abnormality, consider inferolateral ischemia Abnormal ECG When compared with ECG of 11-SEP-2017 11:24, Sinus rhythm has replaced Atrial fibrillation Non-specific change in ST segment in Anterior leads T wave inversion now evident in Anterolateral leads Confirmed by MD AFSHAN, ISABEL ([id number]) on 10/17/2017 5:05:59 PM MUSE SYSTEM 10/17/2017 2:33 PM EDT 10/17/2017 5:05 PM EDT Unknown ECG ORDERABLES MUSE SYSTEM documented in this encounter Visit Diagnoses Diagnosis S/P CABG (coronary artery bypass graft) Postsurgical aortocoronary bypass status documented in this encounter Care Teams Automation Engineering Manager Relationship Specialty Start Date End Date Devorah Epstein MD [address] [place] [address] PCP - General Family Medicine 09/01/17 documented as of this encounter
--- OUTSIDE RECORDS SUMMARY | 2024-01-22 03:01 | XMS_ITS | Encounter Summary ---
Author Organization [facility] Address [facility] [place] [address] Care Team Providers Care Pharmacy Associate Name Role Phone Devorah Epstein MD Primary Care Provider [phone] Encounter Details Date Type Department Care Team (Late st Contact Info) Description 12/05/2017 [place] [address] Scott Watts PA [facility] [place] [address] Social History Tobacco Use Types Packs/Day Years [...] encounter Miscellaneous Notes * Telephone Encounter - Scott Watts PA - 12/05/2017 9:56 AM EDT I spoke with Mr. Cabrera's daughter today. She was concerned that his HR was in the high 50s after walking and his BP was 150s/80-90s. He is on chlorthalidone 25 daily and bisoprolol 5 daily. He is due to see his travel accommodations rater Dr. Marie this week so I deferred to his management. She also stated that he was having some groin tenderness and belly pain. Upon further questioning his groin is soft with mild redness. No edema or drainage. However, he has had inguinal hernia surgery in the past and was told previously that he may have an umbilical hernia, but nothing was done. He does have a mass near his belly button that is not reducible. She tells me he admits to tenderness around his belly button and his belly is firm. I told her that he should be seen in the emergency room as his hernia may be incarcerated and that needs to be taken care of immediately if it is. She understood and agreed with the plan. CASSI DIAZ 12/05/2017 documented in this encounter Plan of Treatment Upcoming Encounters Date Type Department Care Team (Late st Contact Info) Description 03/28/2024 10:00 AM EDT Hospital Encounter Non[place] [address] Arrived documented as of this encounter Visit Diagnoses Not on filedocumented in this encounter Care Teams Pharmacy Associate Relationship Specialty Start Date End Date Devorah Epstein MD [address] [place] [address] PCP - General Family Medicine 09/01/17 documented as of this encounter
--- OUTSIDE RECORDS SUMMARY | 2024-01-22 03:01 | XMS_ITS | Encounter Summary ---
[place] [address] Care Team Providers Care Cargo Vessel Stewardess Name Role Phone Devorah Epstein MD Primary Care Provider [phone] Reason for Visit * Auth/Cert (Routine) Specialty Diagnoses / Procedures Referred By Binh taylor Referred To Contact Diagnoses Atrial fib/flutter, transient bradycardia Albert Oreilly MD [facility] [place] [address] [facility] Referral ID Status Reason Start Date Expiration Date Visits Re quested Visits Authorized [id number] 1 1 Encounter Details Date Type Department Care Team (Late st Contact Info) Description 12/05/2023 3:04 PM EDT Anesthesia Event [place] [address] Drake Lake MD [facility] [place] [address] Tez Daniel MD [facility] [place] [address] Anesthesia Record Procedure Summary Procedure Name Responsible Anesthesiologist Anesthesia Start Time Anesthesia Stop Time ELECTROPHYSIOLOGY PROCEDURE (Left) Drake Lake MD 12/05/23 1504 12/05/23 1749 Events Date Time Event Comment 12/05/2023 1457 1504 AN Verify 1504 Start 1504 An Start Data 1521 An Induction 1523 An Intubation 1525 Anesthesia Ready 1632 Break/Relief In I assumed ca re for Break Relief before which we: 1. Identified the patient 2. Identified the responsible provider(s) 3. Reviewed the pertinent medical history 4. Discussed the surgical plan and course 5. Reviewed intra-op anesthesia management and issues during anesthesia 6. Set expectations for the relief (and/or post-procedure) period 7. Allowed opportunity for questions and acknowledgement of understanding Nikki Ashton CRNA 1654 Extubation/LMA Out 1656 Quick Note PACU hold 1703 Break/Relief Out 1749 an stop data 1749 Recovery or ICU Handoff Inga ent care was transferred to the destination unit staff after review of the patient's medical history, current anesthetic/surgical status and plan, according to the Provider Handoff Checklist. 1749 Stop Meds Name Total Propofol 200 mg Rocuronium 50 mg PHENYLephrine 400 mcg ePHEDrine 25 mg Ondansetron 4 mg Dexamethasone 4 mg ceFAZolin 2 g PHENYLephrine INF 3,220 mcg heparin 3,000 Units sugammadex 200 mg lactated ringers 800 mL * Agents Name O2 Air N2O Sevoflurane (et) * Blood No blood administrations on file. Lines, Drains, and Airways Type Details Placement Removal Wound 12/02/23; 2300; Righ t, anterior, distal, lower; leg 12/02/23 2300 by Joshua Marie RN PIV 12/02/23; 18 gauge; median cubital vein (antecubital fossa), right; removed per policy/procedure, catheter/device intact; 12/06/23; 1435 12/02/23 0000 by Joshua Marie RN 12/06/23 1435 by Cathy Naqvi LNA ETT Mask Ventilation: Jason ordoñez (1); ETT Type: Cuffed, Oral; ETT Size: 7.5 mm; Notes: Asleep, Pre-O2, Stylette; Attempts: 1; Laryngoscopy Grade: 2; ETT Placement Verified By: Auscultation, Capnometry; Secured at Teeth: 23 cm; Inserted by: Tez Kim MD; Removal Date: 12/05/23; Removal Time: 16512/05/23 1523 by Tez Daniel MD 12/05/23 1654 by Nikki Ashton CRNA LDA Cath/EP Sheath 12/05/23; 1548; 26 Polish (Fr) (Upsized from 8F); Right; Femoral; Venous 12/05/23 1548 by Flaquita Camarena RN 12/05/23 1644 by Flaquita Camarena RN documented in this encounter Social History Tobacco Use Types Packs/Day Years Used Date Smoking Tobacco: Former Smokeless Tobacco: Never Alcohol Use Standard Drinks/Week Comments No 0 (1 standard drink = 0.6 oz pur e alcohol) [facility] Utilities Answer Date Recorded In the [...] any time in the past 12 m [facility], were you homeless or living in a correction (including now)? No 12/04/2023 DH IPV Inpatient [...] on file documented as of this encounter OR Notes * Anesthesia Postprocedure Evaluation - Drake Lake MD - 12/06/2023 5:06 PM EDT Department of Anesthesiology Post-procedure Note Patient: Keegan Cabrera Procedure Summary Date: 12/05/23 Room / Location: [facility] B-LAB ROOM 4 / [facility] EP LABS Anesthesia Start: 1504 Anesthesia Stop: 1749 Procedure: ELECTROPHYSIOLOGY PROCEDURE (Left) Diagnosis: (PRESYNCOPE WITH AF) Providers: Heriberto Geronimo MD Responsible Provider: Drake Lake MD Anesthesia Type: general ASA Status: 3 All Anesthesia Providers: Anesthesiologist: Drake Lake MD 2ND PRESSMAN: Partha Milner CRNA Parking Lot Signaler: Tez Daniel MD Vitals Value Taken Time BP 122/69 12/05/231944 Temp 36.4 ??C (97.5 ??F) 12/05/23 1930 Pulse 61 12/05/235 Resp 13 12/05/231944 SpO2 100 % 12/05/231945 Pain Level 2 12/05/231944 Vitals shown include unfiled device data. Patient Location: PACU/[facility] Level of Consciousness: Awake and Alert Pain Management: Satisfactory Analgesia PONV: None Cardiovascular Status: At Baseline and Hemodynamically Stable Respiratory Status: At Baseline and Room Air Postoperative Fluid Status: Intravascular EUvolemia Possible Anesthetic Complications: NONE apparent at time of evaluation Final Primary Anesthesia Type: General (The anesthetic type performed was the same as planned.) Comments: Drake Lake MD * Anesthesia Preprocedure Evaluation - Drake Lake MD - 12/04/2023 6:31 PM EDT Pre-Anesthesia Evaluation for: Keegan Cabrera a 83 y.o. male. Procedure(s): ELECTROPHYSIOLOGY PROCEDURE Patient Active Problem List Diagnosis Date Noted ??? *Atrial fib/flutter, transient 12/02/2023 ??? Pericardial effusion 11/30/2017 ??? 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 Past Surgical History: Procedure Laterality Date ??? PRO CABG, ARTERIAL, SINGLE N/A 09/11/2017 @CABG, USING ARTERIAL GRAFT;SINGLE ARTERIAL GRAFT (WRVU 33.75) performed by Pablo Govea MD at [facility] MAIN OR ??? PRO CABG, ARTERY-VEIN, SINGLE N/A 09/11/2017 @CABG, VENOUS & ARTERIAL GRAFT;SINGLE VEIN GRAFT (WRVU 3.61) performed by Pablo Govea MD at [facility] MAIN OR ??? PRO ENDOSCOPY W/VIDEO-ASST VEIN HARVEST, CABG Right 09/11/2017 ENDOSCOPIC HARVEST VEIN(S) FOR CABG (WRVU 0.31) performed by Pablo Govea MD at [facility] MAIN OR Social History Tobacco Use ??? Smoking status: Former ??? Smokeless tobacco: Never Substance Use Topics ??? Alcohol use: No Social History Substance and Sexual Activity Drug Use No Allergies Allergen Reactions ??? Levaquin [Levofloxacin] Shortness Of Breath ??? Fentanyl Nausea And Vomiting Medications: MAR and/or home medications have been reviewed. Physical Exam: Preprocedure Vitals Current as of 12/04/23 1831 BP: 125/63 Pulse: 50 Resp: 17 SpO2: 93 Temp: 36.4 ??C (97.6 ??F) Height: 182.9 cm (6') (12/02/23) Weight: 128.2 kg (282 lb 10.1 oz) (12/04/23) BMI: 38.33 IBW: 77.6 kg (171 lb 1.9 oz) Last edited 12/04/23 1633 by HB Airway Assessment: Mallampati: II TM distance: >3 FB Neck ROM: full Cardiovascular Assessment: Rhythm: irregular Rate: abnormal Pulmonary Assessment: unlabored breathing Dental Assessment: Misc Assessment: Patient is wearing No contact(s). IV access: Peripheral line Last Filed Perioperative Cognitive Screening None Anesthesia Plan: ASA 3 general, with a(n) intravenous induction Keegan Cabrera is a 83 y.o. male with BMI of 38.33 kg/m2 scheduled for the following: Procedure(s): ELECTROPHYSIOLOGY PROCEDURE Medical History: - Afib - ASCVD s/p CABG 2018 on ASA - Symptomatic afib with slow ventricular escape now resolved in conducted AF w RBBB - New LBBB - HTN, HLD on Losartan, Statin, Lasix Social History: former-smoker, occasional alcohol use Surgical History: CABG Anesthetic History: Mask Ventilation: Easy (1); ETT Type: Cuffed, Oral; ETT Size: 8 mm; Mac Blade: 4; Notes: Asleep, Pre-O2, Stylette; Attempts: 1; Laryngoscopy Grade: 2;?? Off-pump on Levo 8 Relevant allergies: Reviewed Notable Labs: Lab Results Component Value Date HGB 13.1 (L) 12/03/2023 PLATELET 123 (L) 12/03/2023 INR 1.3 12/03/2023 NA 140 12/04/2023 K 4.3 12/04/2023 CO2 19 (L) 12/04/2023 CREATININE 1.59 (H) 12/04/2023 HA1C 6.5 (H) 12/03/2023 ABORH B Pos 11/30/2017 Exercise tolerance: >4 mets per chart review EKG: Slow ventricular rhythm, LBBB ECHO: TTE 12/04/2023 Interpretation Summary -Wall thickness is [...] by visual assessment, DI, and estimated MICHAEL. NPO status at time of surgery: NPO > 8 hours Anesthetic Plan: -GA w/ ETT - A-line -Standard ASA monitoring -PIV access Tez B Fredy, MD Parking Lot Signaler, PGY2/CA1 Pager # [phone] Region - Other Informed Consent: Anesthetic plan and risks discussed with patient. Plan discussed with attending, resident and 2ND PRESSMAN. Anesthesia Screening documented in this encounter Plan of Treatment Upcoming Encounters Date Type Department Care Team (Late st Contact Info) Description 03/28/2024 10:00 AM EDT Hospital Encounter [place] [phone] Arrived documented as of this encounter Visit Diagnoses Not on filedocumented in this encounter Administered Medications Inactive Administered Medications - up to 3 most recent administrations Medication Order MAR Action Action Date Dose Rate Site ceFAZolin (Ancef) (100 mg/mL) injection solution Intravenous, PRN, Starting on Mon12/05/23 at 1530, Until Mon12/05/23 at 1749, Anesthesia Intra-op, Routine Given 12/05/2023 3:30 PM EDT 2 g dexAMETHasone (Decadron) injection Intravenous, PRN, Starting on Mon12/05/23 at 1542, Until Mon12/05/23 at 1749, Anesthesia Intra-op, Routine Given 12/05/2023 3:42 PM EDT 4 mg ePHEDrine sulfate (5 mg/mL) multi-dose injection Intravenous, PRN, Starting on Mon12/05/23 at 1540, Until Mon12/05/23 at 1749, Anesthesia Intra-op, Routine Given 12/05/2023 3:43 PM EDT 10 mg Given 12/05/2023 3:40 PM EDT 10 mg Given 12/05/2023 3:35 PM EDT 5 mg heparin (porcine) (1,000 units/mL) injection Intravenous, PRN, Starting on Mon12/05/23 at 1556, Until Mon12/05/23 at 1749, Anesthesia Intra-op, Routine Given 12/05/2023 3:56 PM EDT 3,000 Units lactated ringers infusion Intravenous, CONTINUOUS PRN, Starting on Mon12/05/23 at 1504, Until Mon12/05/23 at 1749, Anesthesia Intra-op New Bag 12/05/2023 3:04 PM EDT ondansetron (pf) (Zofran) (2 mg/mL) injection Intravenous, PRN, Starting on Mon12/05/23 at 1542, Until Mon12/05/23 at 1749, Anesthesia Intra-op, Routine Given 12/05/2023 3:42 PM EDT 4 mg PHENYLephrine (Gee-Synephrine) (80 mcg/mL) in sodium chloride 0.9% 250 mL infusion Intravenous, CONTINUOUS PRN, Starting on Mon12/05/23 at 1537, Until Mon12/05/23 at 1749, Anesthesia Intra-op, Routine Rate/Dose Change 12/05/2023 4:47 PM EDT 20 mcg/min 15 mL/hr Rate/Dose Change 12/05/2023 4:44 PM EDT 40 mcg/min 30 mL/h r Rate/Dose Change 12/05/2023 3:46 PM EDT 50 mcg/min 37.5 mL /hr PHENYLephrine in NS (PF) (GEE-SYNEPHRINE) 0.8 mg/10 mL (80 mcg/mL) multi-dose injection Syringe Intravenous, PRN, Starting on Mon12/05/23 at 1532, Until Mon12/05/23 at 1749, Anesthesia Intra-op, Routine Given 12/05/2023 3:39 PM EDT 160 mcg Given 12/05/2023 3:35 PM EDT 160 mcg Given 12/05/2023 3:32 PM EDT 80 mcg propofoL (Diprivan) 10 mg/mL bolus injection (Anesthesia) Intravenous, PRN, Starting on Mon12/05/23 at 1521, Until Mon12/05/23 at 1749, Anesthesia Intra-op Given 12/05/2023 3:22 PM EDT 50 mg Given 12/05/2023 3:21 PM EDT 150 mg rocuronium (Zemuron) (10 mg/mL) multi-dose injection Intravenous, PRN, Starting on Mon12/05/23 at 1521, Until Mon12/05/23 at 1749, Anesthesia Intra-op, Routine Given 12/05/2023 3:21 PM EDT 50 mg sugammadex (Bridion) 100 mg/mL injection Intravenous, PRN, Starting on Mon12/05/23 at 1648, Until Mon12/05/23 at 1749, Anesthesia Intra-op, Routine Given 12/05/2023 4:48 PM EDT 200 mg documented in this encounter Care Teams Cargo Vessel Stewardess Relationship Specialty Start Date End Date Devorah Epstein MD [address] [facility] [address] [place] [address] PCP - General Family Medicine 09/01/17 documented as of this encounter
--- OUTSIDE RECORDS SUMMARY | 2024-01-22 03:01 | XMS_ITS | Encounter Summary ---
Author Organization [facility] [address] Care Team Providers Care Engineer Technical Staff Name Role Phone Devorah Epstein MD Primary Care Provider [phone] Encounter Details Date Type Department Care Team (Latest Contact Info) Description 01/02/2018 2:53 PM EDT - 01/02/2018 11:59 PM EDT Hospital Encounter XRay at [address] [place] [address] Pablo Govea MD [facility] [place] [address] Pericardial effusion Discharge Disposition: Home Social History [...] AM EDT Hospital Encounter Non-[place] [phone] Arrived documented as of this encounter Procedures Procedure Name Priority Date/Time Associated Diagnosis Comments XR CHEST PA AND LATERAL Routine 01/02/2018 3:05 PM EDT Pericardial effusion documented in this encounter Results * XR [...] pericardium documented in this encounter Care Teams Engineer Technical Staff Relationship Specialty Start Date End Date Devorah Epstein MD [address] [place] [address] PCP - General Family Medicine 09/01/17 documented as of this encounter
--- OUTSIDE RECORDS SUMMARY | 2024-01-22 03:01 | XMS_ITS | Encounter Summary ---
Author Organization [facility] [place] [address] Care Team Providers Care Headlight Assembler Name Role Phone Devorah Epstein MD Primary Care Provider [phone] Encounter Details Date Type Department Care Team (Latest Contact Info) Description 11/29/2017 12:05 AM EDT - 11/29/2017 12:09 AM EDT Hospital Encounter [place] [phone] Pablo Sue MD [facility] [place] [address] Discharge Disposition: Home Social History Tobacco Use [...] AM EDT Hospital Encounter Non-[place] [address] Arrived documented as of this encounter Procedures Procedure Name Priority Date/Time Associated Diagnosis Comments FILM LIBRARY STORAGE ONLY CT ABDOMEN Routine 11/29/2017 12:05 AM EDT documented in this encounter Results * Film Library- Storage Only CT Abdomen (11/29/2017 12:05 AM EDT) Narrative [facility] - 11/29/2017 4:21 PM EDT This exam is for storage only and is auto-finalizing. Pablo Sue MD IMG FILM LIBRARY OR DERABLES [place], [place] documented in this encounter Visit Diagnoses Not on filedocumented in this encounter Care Teams Headlight Assembler Relationship Specialty Start Date End Date Devorah Epstein MD [address] [place] [address] PCP - General Family Medicine 09/01/17 documented as of this encounter
--- OUTSIDE RECORDS SUMMARY | 2024-01-22 03:01 | XMS_ITS | Encounter Summary ---
Author Organization [facility] [place] [address] Care Team Providers Care Political Cartoonist Name Role Phone Devorah Epstein MD Primary Care Provider [phone] Encounter Details Date Type Department Care Team (Latest Contact Info) Description 11/29/2017 - 11/29/2017 12:04 AM EDT Hospital Encounter [place] [phone] Pablo Sue MD [facility] [place] [address] Discharge Disposition: Home Social History Tobacco Use [...] AM EDT Hospital Encounter Non-Invasive [place] [address] Arrived documented as of this encounter Procedures Procedure Name Priority Date/Time Associated Diagnosis Comments FILM LIBRARY STORAGE ONLY ULTRASOUND STUDY Routine 11/29/2017 12:00 AM EDT documented in this encounter Results * Film Library- Storage Only Ultrasound Study (11/29/2017 12:00 AM EDT) Narrative [facility] - 11/29/2017 4:21 PM EDT This exam is for storage only and is auto-finalizing. Pablo Sue MD IMG FILM LIBRARY OR DERABLES [place], [place] documented in this encounter Visit Diagnoses Not on filedocumented in this encounter Care Teams Political Cartoonist Relationship Specialty Start Date End Date Devorah Epstein MD [address] [place] [address] PCP - General Family Medicine 09/01/17 documented as of this encounter
--- OUTSIDE RECORDS SUMMARY | 2024-01-22 03:01 | XMS_ITS | Encounter Summary ---
[place] [address] Care Team Providers Care Sole Trimmer Name Role Phone Devorah Epstein MD Primary Care Provider Encounter Details Date Type Department Care Team (Late st Contact Info) Description 09/20/2023 External [place] [address] Social History Tobacco Use Types Packs/Day Years [...] AM EDT Hospital Encounter Non-[place] [address] Arrived documented as of this encounter Procedures Procedure Name Priority Date/Time Associated Diagnosis Comments ECG SCAN Routine 09/20/2023 3:11 PM EDT documented in this encounter Results * Scan Doc: ECG (09/20/2023 3:11 PM EDT) Historical Provider MD RAMEY MGR SCAN EX T ORDR/RSLT documented in this encounter Visit Diagnoses Not on filedocumented in this encounter Care Teams Sole Trimmer Relationship Specialty Start Date End Date Devorah Epstein MD [facility] [address] [facility] [address] [place] [address] PCP - General Family Medicine 09/01/17 documented as of this encounter
--- OUTSIDE RECORDS SUMMARY | 2024-01-22 03:01 | XMS_ITS | Encounter Summary ---
Author Organization [facility] [place] [address] Care Team Providers Care Marketing Financial Analyst Name Role Phone Devorah Epstein MD Primary Care Provider [phone] Encounter Details Date Type Department Care Team (Late st Contact Info) Description 09/20/2023 Telephone Cardiology at [address] [address] Elma Downs PA [facility] [place] [address] Social History Tobacco Use Types Packs/Day Years [...] encounter Miscellaneous Notes * Telephone Encounter - Elma Downs PA - 09/20/2023 3:22 PM EDT Images from the original note were not included. Patient: Keegan Cabrera 83 y.o. Initial Contact Date: 09/20/2023 Initial contact time: 3:23 PM Referring Provider: [facility] Patient Location: Coleen Medina APRN Past Medical History: ASCVD s/p CABG 08/2017 (FRIAS-LAD, SVG-OM) Persistent AF: not on OAC due to ? friable lung tissue HFpEF (LVEF 55%) HTN HLD GERD Presenting Symptoms per OSH: Presented with LOYOLA x few days with chest pressure. Recently has increased his oral diuretic from Lasix 20mg every other day to 40mg daily. Continues to have symptoms. Was seen recently in the ER for RLE swelling and erythema, treated for cellulitis. Exam: LE edema Vital Signs: HR 70s, BP 138/64, RR 17, O2 97% RA, HR 70s Pertinent Diagnostic Findings: EKG: Troponin: 62 > 71 (ULN <60) ProBNP ~3,000 CTA PE negative for PE Past cardiac studies: TTE 12/2017 1. The [...] See remainder of report for additional findings. Cath 2018 >>> CABG Hemodynamics: Right Heart Pressures Hemodynamics: Syst Diast EDP a v m RA 5 4 2 RV 35 5 PA 24 14 18 PCW 9 8 6 Hemodynamic Profile: Profile 1 CO 8.42 CI 3.40 TSR 912 SVR 893 TPR 171 PVR 114 Technique Estimated Jose Miguel Left Heart Pressures Resting: Syst Diast EDP a v m Ao 126 75 96 LV 129 8 Comments: Opening AO: 142 / 70 (92). Oximetry: Location %Sat Location %Sat Main Pulmonary Artery 72.0 Pulmonary Capillary 95.0 Wedge Peripheral Arterial 92.0 Coronary Angiography: Dominance: Right Left Main There was a 40% calcified single discrete stenosis of the proximal segment of the left main artery. The left main was large. Left Anterior Descending There was a 40% calcified long segmental stenosis of the proximal segment of the left anterior descending artery (LAD). The LAD was large. The mid segment of the LAD had a single discrete 80% stenosis. Left Circumflex There was a 70% eccentric single discrete stenosis of the proximal segment of the left circumflex artery (LCX). The LCX was large. Right Coronary Artery There was moderate diffuse (<=50% stenosis) disease of the entire vessel segment of the right coronary artery (RCA) and it was calcified. The RCA was large. There was a 45% calcified single discrete stenosis of the ostial segment of the right posterior descending branch (RPDA) of the RCA. The RPDA was moderate in size. OSH Interventions: ASA 324mg Assessment & Plan: Keegan Cabrera is a 83 y.o. male with a history of ASCVD s/p CABG 08/2017 (FRIAS-LAD, SVG-OM), persistent AF (not on OAC due to ? friable lung tissue), HFpEF (LVEF 55%), HTN, HLD, and GERD who presented to [facility] ER with LOYOLA and chest tightness for a few days despite escalating oral diuretic dosingin the outpatient setting. ProBNP elevated. CTA chest negative for PE. Troponin trend with slight uptrend; third pending. EKG with lateral STD reportedly new. Our prior EKG is from 2018 and no RBBB seen at that time which is reportedly not new compared to their priors making this EKG difficult to interpret new/old changes. Requested old EKG be sent. Presentation most consistent with acute on chronic HFpEF and NSTEMI type 1 versus 2. Recommended admission locally for IV diuresis. Obtain TTE in the morning. Would trend troponin. Start IV heparin per ACS protocol for now given uncertainty of type 1 versus 2 with slight up-trending troponin. Already loaded with ASA. Consider ischemic evaluation(invasive vs noninvasive) pending clinical course. Patient follows with Dr. Hernandez locally and provider believes she would be available for consult tomorrow. Plan for provider to call back tomorrow with updates and reconsideration for transfer if indicated. Additionally, discussed that atrial fibrillation is seen on EKG today. There is documentation from 2018 for post-CABG AF however no further reports. Per Dr. Hernandez's notes patient has persistent atrialfibrillation. He remains rate controlled today and therefore seems unlikely to be a canal driver for the above. Discussed historically he is not on OAC for ?friable lung tissue. Would review further with patient and primary team if OAC benefits > risks. [id number] score is 5 (age +2, HTN, CHF, CAD). I encouraged Coleen Medina APRN to contact us if there is any change in symptoms, decision-making, or further need for guidance in management. The above recommendations were based on my discussion with Coleen Medina APRN; I have not personally interviewed or examined this patient. Elma Downs PA-C Cardiovascular Medicine Pager [phone] 09/20/2023 documented in this encounter Plan of Treatment Upcoming Encounters Date Type Department Care Team (Late st Contact Info) Description 03/28/2024 10:00 AM EDT Hospital Encounter Non-[place] [phone] Arrived documented as of this encounter Visit Diagnoses Not on filedocumented in this encounter Care Teams Marketing Financial Analyst Relationship Specialty Start Date End Date Devorah Epstein MD [facility] [address] [place] [address] PCP - General Family Medicine 09/01/17 documented as of this encounter
--- OUTSIDE RECORDS SUMMARY | 2024-01-22 03:01 | XMS_ITS | Encounter Summary ---
[place] [address] Care Team Providers Care Heavy Repairer Name Role Phone Devorah Epstein MD Primary Care Provider [phone] Encounter Details Date Type Department Care Team (Late st Contact Info) Description 02/07/2018 [place] [address] Ramon Jack MD [facility] [place] [address] Social History Tobacco Use Types Packs/Day Years [...] encounter Miscellaneous Notes * Telephone Encounter - Ramon Jack - 02/07/2018 1:46 AM EDT Received a phone call from Dr. Caceres at [facility] regarding Mr. Cabrera who is a 77 year old man with history of CAD s/p CABG (FRIAS-LAD, SVG-OM) in August 2017 who presented to [facility] with several day history of feeling unwell with acute worsening tonight of epigastric pain, diaphoresis, subjective fevers. Per provider, CXR with unchanged pleural effusion but no acute changes. Tn 0.04 (ULN 0.02). ECGwith inferolateral ST-T wave changes (more prominent compared to prior ECG). We have no beds available at this point and are not keeping an accepted patient list due to being at capacity. I think it is reasonable to consider a cardiac cause of his symptoms. Would recheck a troponin and if increases compared to initial one, reasonable to start IV heparin, give Plavix. The provider will contact [facility] to try to transfer there. I made the above recommendations with the information provided to me over the phone and not able tointerview or examine the patient myself. documented in this encounter Plan of Treatment Upcoming Encounters Date Type Department Care Team (Late st Contact Info) Description 03/28/2024 10:00 AM EDT Hospital Encounter Non-Invasive [place] [phone] Arrived documented as of this encounter Visit Diagnoses Not on filedocumented in this encounter Care Teams Heavy Repairer Relationship Specialty Start Date End Date Devorah Epstein MD [address] [place] [address] PCP - General Family Medicine 09/01/17 documented as of this encounter
--- OUTSIDE RECORDS SUMMARY | 2024-01-22 03:01 | XMS_ITS | Encounter Summary ---
Author Organization [facility] [place] [address] Care Team Providers Care Director Data Processing Name Role Phone Devorah Epstein MD Primary Care Provider [phone] Encounter Details Date Type Department Care Team (Latest Contact Info) Description 11/29/2017 12:10 AM EDT - 11/29/2017 11:59 PM EDT Hospital Encounter [place] [phone] Pablo Sue MD [facility] [place] [address] Discharge Disposition: Home Social History Tobacco Use [...] AM EDT Hospital Encounter Non-Invasive [place] [address] Arrived documented as of this encounter Procedures Procedure Name Priority Date/Time Associated Diagnosis Comments FILM LIBRARY STORAGE ONLY DX CHEST Routine 11/29/2017 12:10 AM EDT documented in this encounter Results * Film Library- Storage Only DX Chest (11/29/2017 12:10 AM EDT) Narrative [facility] - 11/29/2017 4:22 PM EDT This exam is for storage only and is auto-finalizing. Pablo Sue MD IMG FILM LIBRARY OR DERABLES [place], [place] documented in this encounter Visit Diagnoses Not on filedocumented in this encounter Care Teams Director Data Processing Relationship Specialty Start Date End Date Devorah Epstein MD [address] [place] [address] PCP - General Family Medicine 09/01/17 documented as of this encounter
--- OUTSIDE RECORDS SUMMARY | 2024-01-22 03:02 | XMS_ITS | Encounter Summary ---
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 UNKNOWN Procedures PRO CABG, ARTERIAL, SINGLE PRO CABG, ARTERY-VEIN, SINGLE PRO ENDOSCOPY W/VIDEO-ASST VEIN HARVEST, CABG @CABG, USING ARTERIAL GRAFT;SINGLE ARTERIAL GRAFT (WRVU 33.75) @CABG, VENOUS & ARTERIAL GRAFT;SINGLE VEIN GRAFT (WRVU 3.61) ENDOSCOPIC HARVEST VEIN(S) FOR CABG (WRVU 0.31) Referral ID Status Reason Start Date Expiration Date Visits Re quested Visits Authorized [id number] 1 1 Encounter Details Date Type Department Care Team (Late st Contact Info) Description 09/11/2017 7:22 AM EDT Anesthesia [place] [address] Kalyan Tinsley MD [facility] [place] [address] Keegan Woodard MD [facility] [place] [address] Anesthesia Record Procedure Summary Procedure Name Responsible Anesthesiologist Anesthesia Start Time Anesthesia Stop Time @CABG, USING ARTERIAL GRAFT;SINGLE ARTERIAL GRAFT (WRVU 33.75) (Chest) Kalyan Tinsley MD 09/11/17 0722 09/11/17 1103 Events Date Time Event Comment 09/11/2017 0637 0722 Start 0724 AN Verify 0725 An Start Data 0739 An Induction 0744 An Intubation 0747 TONIE PROBE ONLY 0753 Anesthesia Ready 0815 Procedure Start 0818 Sternotomy 0836 Heparin 5000u 0846 Heparin 19,000u 0854 AN AORTIC CANNULA 0857 AN Venous Cannula 0858 Heparin 0902 CV Bypass init 0906 An Clamp start 0928 Quick Note OM 0946 Quick Note LAD 0951 Undercar Specialist 0954 An Clamp Remove 0959 CP Bypass Ended 1002 Protamine 1035 Chest Closed 1048 an stop data 1103 Recovery or ICU Handoff Inga ent care was transferred to the destination unit staff after review of the patient's medical history, current anesthetic/surgical status and plan, according to the Provider Handoff Checklist. 1103 Stop Meds Name Total Midazolam 5 mg fentaNYL 1,000 mcg Propofol 100 mg Propofol INF 269.1 mg PHENYLephrine 160 mcg PHENYLephrine INF 3,420 mcg Vecuronium 30 mg Protamine 210 mg Tranexamic Acid 1,300 mg Tranexamic Acid INF 411.67 mg Insulin Regular Human 9 Units cefTRIAXone 2 g heparin (porcine) injection 34,000 Units NORepinephrine INF 390 mcg Sodium Chloride 0.9% 1,500 mL lactated Ringers infusion 1,000 mL 600 m L * Agents Name O2 Air N2O Isoflurane (et) * Blood No blood administrations on file. Lines, Drains, and Airways Type Details Placement Removal LDA Cath/EP Sheath 09/01/17; 1009; 6 Uzbek (Fr); Right; Femoral 09/01/17 1009 by Keegan Woodson 09/11/17 1900 by Dolly Staley RN Chest Tube 09/11/17; Right; anterior; mediastinum; ([address] chest tube); 09/12/17; 0800 09/11/17 0000 by Siena Villavicencio RN 09/12/17 0800 by Milla Messer RN (RETIRED) Peripheral IV Line - Single Lumen 09/11/17; 0639; median cubital vein (antecubital fossa), right; [id number]-him-[id number] catheter system; 20 gauge; Kaylah MICHELE; distraction, intradermal injection, tolerated well; 1; Location1: (select this item first), metacarpal vein (top of hand), right; 09/14/17; 1200 09/11/17 0639 by Parvin Romero RN 09/14/17 1200 by Dolly Staley RN Urethral Catheter 09/11/17; 0745; Surg diamond longer than 2 hours; other (see comments) ([facility] indwelling catheter with core temperature probe; latex; 14; inserted at this facility; 1; 10; 10; 09/12/17; 0930 09/11/17 0745 by Siena Villavicencio RN 09/12/17 0930 by Milla Messer RN ETT Mask Ventilation: Ea sy (1); ETT Type: Cuffed, Oral; ETT Size: 8 mm; Mac Blade: 4; Notes: Asleep, Pre-O2, Stylette; Attempts: 1; Laryngoscopy Grade: 2; ETT Placement Verified By: Auscultation, Capnometry, Visual; Secured at Teeth: 24 cm; Inserted by: waldmear ji; Removal Date: 09/11/17; Removal Time: 1434 09/11/17 0749 by Keegan Woodard MD 09/11/17 1434 by Ju Reyes RCP Arterial Line 09/11/17; 0801; radi al artery, left (2 attempts right side, unable to pass wire); 20 gauge; kurt ji; Sterile Prep, Sterile Gloves; 09/12/17; 1200 09/11/17 0801 by Keegan Woodard MD 09/12/17 1200 by Mar Nash RN (RETIRED) Percutaneous Central Line - Single Lumen 09/11/17; 0801; internal jugular vein, right; Ultrasound Guidance; Yes; 9 Fr; waldemar ji; TONIE; CVC Protocol Performed; 09/12/17; 119909/11/17 0801 by Keegan Woodard MD 09/12/17 1200 by Mar Nash, RN (RETIRED) Pulmonary Artery Catheter - Triple Lumen 03/19/18; 0801; jugular vein, right internal; VIP; 8 Fr; CVC Protocol Performed; waldemar ji; 09/11/17; 19309/11/17 08 by Keegan Woodard MD 09/11/17 193 by Christel Moreira RN Incision 09/11/17; 0816; knee ; horizontal, arthroscopic punctures (specify); 02/21/22 (LDA cleanup utility RA#[id number]); 1715 (LDA cleanup utility RA#[id number]) 09/11/17 0816 by Siena Villavicencio RN 02/21/22 1715 by Vincent Kearns Incision 09/11/17; 0817; ches t; vertical; 02/21/22 (LDA cleanup utility RA#[id number]); 1715 (LDA cleanup utility RA#[id number]) 09/11/17 0817 by Siena Villavicencio RN 02/21/22 1715 by Vincent Kearns Chest Tube 09/11/17; 0955; Left ; anterior; mediastinum; (28 fr angled chest tube); 09/12/17; 0800 09/11/17 0955 by Siena Villavicencio RN 09/12/17 0800 by Milla Messer RN documented in this encounter Social History [...] OR Notes * Anesthesia Postprocedure Evaluation - Keegan Woodard MD - 09/11/2017 3:49 PM EDT [facility] Anesthesiology Post-procedure Note Patient: Keegan Thomas Deborah Procedure Summary Date Anesthesia Start Anesthesia Stop Room / Location 09/11/17 0722 1103 [facility] OR 16 / [facility] MAIN OR Procedure Diagnosis Surgeon Responsible Provider @CABG, USING ARTERIAL GRAFT;SINGLE ARTERIAL GRAFT (WRVU 33.75) (N/A Chest); @CABG, VENOUS & ARTERIAL GRAFT;SINGLE VEIN GRAFT (WRVU 3.61) (N/A Chest); ENDOSCOPIC HARVEST VEIN(S) FOR CABG (WRVU 0.31) (Right Leg) 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 (cad) Pablo Govea MD Spence, Brian C, MD All Anesthesia Providers: Anesthesiologist: Kalyan Tinsley MD [employer] Machine Feeder: Keegan Woodard MD Most Recent Vitals: 09/11/17 1500 BP: Pulse: (!) 46 Resp: 22 Temp: 36.3 ??C (97.3 ??F) SpO2: 96% Pain Patient Location: [facility] Level of Consciousness: Awake and Alert Pain Management: Satisfactory Analgesia PONV: PONV Resolved with Rx Cardiovascular Status: Hemodynamically Stable and Hypotension (received treatment) Respiratory Status: Stable Respiratory Status and Supplemental O2 (NC or FM) Postoperative Fluid Status: Intravascular EUvolemia Possible Anesthetic Complications: NONE apparent at time of evaluation Final Primary Anesthesia Type: General (The anesthetic type performed was the same as planned.) Comments: Extubated to NC, levo remains on. Pain well controlled but with ongoing nausea. * Anesthesia Preprocedure Evaluation - Kalyan Tinsley MD - 09/10/2017 9:52 AM EDT Images from the original note were not included. Pre-Anesthesia Evaluation for: Keegan Cabrera a 77 y.o. male. Procedure(s): @CABG, USING ARTERIAL GRAFT;SINGLE ARTERIAL GRAFT (WRVU 33.75) @CABG, VENOUS & ARTERIAL GRAFT;SINGLE VEIN GRAFT (WRVU 3.61) ENDOSCOPIC HARVEST VEIN(S) FOR CABG (WRVU 0.31) Patient Active Problem List Diagnosis ??? 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 No past surgical history on file. Social History Substance Use Topics ??? Smoking status: Former Smoker ??? Smokeless tobacco: Never Used ??? Alcohol use No History Drug Use No No Known Allergies Medications: MAR and/or home medications have been reviewed. Physical Exam: There were no vitals filed for this visit. There is no height or weight on file to calculate BMI. Airway Assessment: Mallampati: II TM distance: >3 FB Neck ROM: full Cardiovascular Assessment: cardiovascular exam normal Pulmonary Assessment: pulmonary exam normal Dental Assessment: (+) upper dentures Misc Assessment: IV access: Peripheral line Anesthesia Plan: ASA 3 general, with a(n) intravenous induction 77 yo F with CAD discovered after postive stress test to OR for CABG x2. Hx HTN on amlodipine/valsartan/hctz No SSRI No esophageal pathology LAD and OM disease No . 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 Ef 55% Cr 1.12 Plan GA/ETT/CAP/CVL/PAC/TONIE Region - Intrathoracic Cardiac Informed Consent: Anesthetic plan and risks discussed with patient and daughter/son. Plan discussed with resident. PAT Staff Note documented in this encounter Plan of Treatment Upcoming Encounters Date Type Department Care Team (Late st Contact Info) Description 03/28/2024 10:00 AM EDT Hospital Encounter [place] [address] Arrived documented as of this encounter Visit Diagnoses Not on filedocumented in this encounter Administered Medications Inactive Administered Medications - up to 3 most recent administrations Medication Order MAR Action Action Date Dose Rate Site cefTRIAXone (ROCEPHIN) injection PRN, Starting on Mon09/11/17 at 0753, Until Mon09/11/17 at 1103, Anesthesia Intra-op, Routine Given 09/11/2017 7:53 AM EDT 2 g fentaNYL 50 mcg/mL multi-dose injection PRN, Starting on Mon09/11/17 at 0739, Until Mon09/11/17 at 1103, Pain, Anesthesia Intra-op, Routine Given 09/11/2017 8:15 AM EDT 250 mcg Given 09/11/2017 8:10 AM EDT 250 mcg Given 09/11/2017 7:39 AM EDT 500 mcg heparin (porcine) injection ONCE PRN, Starting on Mon09/11/17 at 0808, Until Mon09/11/17 at 1052, Intra-Operative (Intra-Procedure), Routine Given 09/11/2017 9:01 AM EDT 5,000 Units Given 09/11/2017 8:57 AM EDT 10,000 Units Given 09/11/2017 8:46 AM EDT 19,000 Units insulin regular human VIAL injection PRN, Starting on Mon09/11/17 at 0920, Until Mon09/11/17 at 1103, Anesthesia Intra-op, Routine Given 09/11/2017 9:42 AM EDT 2 Units Given 09/11/2017 9:20 AM EDT 7 Units lactated Ringers infusion 1,000 mL 1,000 mL, at 100 mL/hr, Intravenous, CONTINUOUS, Starting on Mon09/11/17 at 0630, Until Mon09/11/17 at 1109, Day of Surgery (Day of Procedure) New Bag 09/11/2017 7:22 AM EDT midazolam (PF) (VERSED) 1 mg/mL multi-dose injection PRN, Starting on Mon09/11/17 at 0731, Until Mon09/11/17 at 1103, Sleep, Anesthesia Intra-op, Routine Given 09/11/2017 7:39 AM EDT 3 mg Given 09/11/2017 7:31 AM EDT 2 mg NORepinephrine 16 mcg/mL (standard ADULT and Pedi greater than 20 kg) infusion CONTINUOUS PRN, Starting on Mon09/11/17 at 0954, Until Mon09/11/17 at 1103, Anesthesia Intra-op, Routine Rate/Dose Change 09/11/2017 10:55 AM EDT 3 mcg/min 11.3 mL/hr Rate/Dose Change 09/11/2017 10:48 AM EDT 6 mcg/min 22.5 m L/hr Rate/Dose Change 09/11/2017 10:28 AM EDT 8 mcg/min 30 mL/ hr PHENYLephrine (CHENCHO-SYNEPHRINE) 20 mg in sodium chloride 250 mL (standard ADULT & Pedi greater than 20kg) infusion CONTINUOUS PRN, Starting on Mon09/11/17 at 0748, Until Mon09/11/17 at 1103, Anesthesia Intra-op, Routine Rate/Dose Change 09/11/2017 8:21 AM EDT 15 mcg/min 11.3 mL/hr New Bag 09/11/2017 7:48 AM EDT 30 mcg/min 22.5 mL/hr PHENYLephrine in NS (PF) (CHENCHO-SYNEPHRINE) 0.8 mg/10 mL (80 mcg/mL) multi-dose injection Syrg PRN, Starting on Mon09/11/17 at 0847, Until Mon09/11/17 at 1103, Anesthesia Intra-op, Routine Given 09/11/2017 8:47 AM EDT 160 mcg propofol (DIPRIVAN) 10 mg/mL bolus injection (Anesthesia) PRN, Starting on Mon09/11/17 at 0739, Until Mon09/11/17 at 1103, Anesthesia Intra-op Given 09/11/2017 7:39 AM EDT 100 mg propofol (DIPRIVAN) infusion CONTINUOUS PRN, Starting on Mon09/11/17 at 0959, Until Mon09/11/17 at 1103, Anesthesia Intra-op, Routine Rate/Dose Change 09/11/2017 10:48 AM EDT 40 mcg/kg/min 31.2 mL/hr New Bag 09/11/2017 9:59 AM EDT 30 mcg/kg/min 23.4 mL/hr protamine injection PRN, Starting on Mon09/11/17 at 1002, Until Mon09/11/17 at 1103, Anesthesia Intra-op, Routine Given 09/11/2017 10:02 AM EDT 210 mg sodium chloride 0.9% infusion CONTINUOUS PRN, Starting on Mon09/11/17 at 0919, Until Mon09/11/17 at 1103, Anesthesia Intra-op New Bag 09/11/2017 9:19 AM EDT New Bag 09/11/2017 7:53 AM EDT tranexamic acid (CYKLOKAPRON) 100 mg/mL bolus injection (Anesthesia) PRN, Starting on Mon09/11/17 at 0753, Until Mon09/11/17 at 1103, Anesthesia Intra-op, Routine Given 09/11/2017 7:53 AM EDT 1,300 mg tranexamic acid (CYKLOKAPRON) injection CONTINUOUS PRN, Starting on Mon09/11/17 at 0753, Until Mon09/11/17 at 1103, Anesthesia Intra-op, Routine New Bag 09/11/2017 7:53 AM EDT 1 mg/kg/hr 1.3 mL/hr vecuronium (NORCURON) injection PRN, Starting on Mon09/11/17 at 0739, Until Mon09/11/17 at 1103, Anesthesia Intra-op, Routine Given 09/11/2017 9:19 AM EDT 10 mg Given 09/11/2017 8:23 AM EDT 7 mg Given 09/11/2017 7:39 AM EDT 13 mg documented in this encounter Care Teams Digital Research Analyst Relationship Specialty Start Date End Date Devorah Epstein MD [facility] [address] [place] [address] PCP - General Family Medicine 09/01/17 documented as of this encounter
--- OUTSIDE RECORDS SUMMARY | 2024-01-22 03:02 | XMS_ITS | Encounter Summary ---
[place] [address] Care Team Providers Care Wound Specialist Name Role Phone Devorah Epstein MD Primary Care Provider Encounter Details Date Type Department Care Team (Late st Contact Info) Description 09/01/2017 2:10 PM EST Laboratory Appointment [place] [address] Social History Tobacco Use Types Packs/Day Years [...] AM EDT Hospital Encounter [place] [address] Arrived documented as of this encounter Visit Diagnoses Not on filedocumented in this encounter Care Teams Wound Specialist Relationship Specialty Start Date End Date Devorah Epstein MD [address] [place] [address] PCP - General Family Medicine 09/01/17 documented as of this encounter
--- OUTSIDE RECORDS SUMMARY | 2024-01-22 03:02 | XMS_ITS | Encounter Summary ---
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 cad UNKNOWN Procedures PRO CABG, ARTERIAL, SINGLE PRO CABG, ARTERY-VEIN, SINGLE PRO ENDOSCOPY W/VIDEO-ASST VEIN HARVEST, CABG @CABG, USING ARTERIAL GRAFT;SINGLE ARTERIAL GRAFT (WRVU 33.75) @CABG, VENOUS & ARTERIAL GRAFT;SINGLE VEIN GRAFT (WRVU 3.61) ENDOSCOPIC HARVEST VEIN(S) FOR CABG (WRVU 0.31) Referral ID Status Reason Start Date Expiration Date Visits Re quested Visits Authorized [id number] 1 1 Encounter Details Date Type Department Care Team (Late st Contact Info) Description 09/11/2017 7:30 AM EDT - 09/11/2017 11:43 AM EDT Surgery [place] [id number] Pablo Govea MD [facility] [place] [address] @CABG, USING ARTERIAL GRAFT;SINGLE ARTERIAL GRAFT (WRVU 33.75) Social History Tobacco Use Types Packs/Day Years [...] Sign Reading Time Taken Comments Blood Pressure 148/65 09/11/2017 6:19 AM EDT lef t arm Pulse 80 09/11/2017 11:30 AM EDT Temperature 35.6 ??C (96.1 ??F) 09/11/2017 11:15 AM E DT Respiratory Rate 14 09/11/2017 11:30 AM EDT Oxygen Saturation 100% 09/11/2017 11:30 AM EDT Inhaled Oxygen Concentration - - Weight 130 kg (286 lb 9.6 oz) 09/11/2017 6:16 AM EDT Height 182.9 cm (6') 09/11/2017 6:16 AM EDT Body Mass Index 40.87 09/11/2017 6:16 AM EDT documented in this encounter Discharge Summaries * Flower Smith, QI - 09/15/2017 9:27 AM EDT Inpatient - Discharge Summary Patient Name: Keegan Cabrera Patient Age: 77 y.o. Birthdate: 1940 Language: Gibraltarian Race: White Ethnicity: Not nor Admit Date: 09/11/2017 Discharge Date: 09/15/2017 Attending Physician: Pablo Govea MD Follow-up Recommendations for Providers: Please continue routine management of cardiovascular risk factors including blood pressure, lipids,glucose, etc. Please note any changes to medications. Patient to follow-up with PCP, Devorah Epstein MD, in 1-2 weeks. Patient to follow-up with Chemistry Physics Teacher, Dr. Marie, in two weeks. Patient to follow-up with Cardiac Surgery, Dr. Pablo Govea, in ~ 4 weeks with CXR, EKG. Inpatient Provider Contact Information: [facility] Section of Cardiac Surgery [facility] [place] [address] FAX [phone] Discharge Diagnoses (Hospital Problems) Primary Diagnoses: CAD s/p CABGx2 Secondary Diagnoses: Post-operative atrial fibrillation Other Diagnoses (Chronic Problems): There are no active non-hospital problems to display for this patient. Discharged to: Patient discharged to home Functional and Cognitive Status: stable Discharge Conditions/Prognosis: stable No past medical history on file. Past Surgical History: Procedure Laterality Date ??? PRO CABG, ARTERIAL, SINGLE N/A 09/11/2017 @CABG, USING ARTERIAL GRAFT;SINGLE ARTERIAL GRAFT (WRVU 33.75) performed by Pablo Govea MD at [facility] MAIN OR ??? PRO CABG, ARTERY-VEIN, SINGLE N/A 09/11/2017 @CABG, VENOUS & ARTERIAL GRAFT;SINGLE VEIN GRAFT (WRVU 3.61) performed by Pablo Govea MD at [facility] MAIN OR ??? PRO ENDOSCOPY W/VIDEO-ASST VEIN HARVEST, CABG Right 09/11/2017 ENDOSCOPIC HARVEST VEIN(S) FOR CABG (WRVU 0.31) performed by Pablo Govea MD at [facility] MAIN OR Prior To Admission Medications Prescriptions Prior to Admission Medication Sig Dispense Refill Last Dose ??? chlorhexidine (HIBICLENS) 4 % Liquid Apply topically daily as needed. Shower from head to toe with Chlorhexidine the night before surgery . 120 mL 0 ??? chlorthalidone (HYGROTEN) 25 mg Tablet Take 25 mg by mouth daily. 08/31/2017 ??? valsartan-hydrochlorothiazide (DIOVAN-HCT) 160-12.5 mg Tablet Take 1 tablet by mouth daily. 08/31/2017 ??? simvastatin (ZOCOR) 40 mg Tablet Take 40 mg by mouth nightly. 08/31/2017 ??? selenium 50 mcg Tablet Take 200 mcg by mouth. 08/31/2017 ??? UNABLE TO FIND Isr[place] jordan 08/31/2017 ??? omeprazole (PRILOSEC) 20 mg Capsule, Delayed Release(E.C.) Take 20 mg by mouth daily. 08/31/2017 ??? lactobacillus rhamnosus, GG, (CULTURELLE) 10 billion cell Capsule Take 1 capsule by mouth daily. 08/31/2017 ??? aspirin 81 mg Tablet, Delayed Release (E.C.) Take 81 mg by mouth daily. Past Week at Unknown time ??? amLODIPine (NORVASC) 5 mg Tablet Take 5 mg by mouth daily. 08/31/2017 ??? meTOPROLOL succinate (TOPROL-XL) 50 mg Tablet Sustained Release 24 hr Take 50 mg by mouth daily. 08/31/2017 ??? cholecalciferol, Vitamin D3, 1,000 unit Capsule Take by mouth. 08/31/2017 ??? glucosamine sulfate 500 mg Tablet Take 1,000 mg by mouth. 08/31/2017 Updated Allergies/ADRs: No Known Allergies History of Presentation: This is a 77-year-old male who had been having symptoms of dyspnea on exertion who had a stress test done at [facility] that revealed moderate risk for a cardiac event. ??In light of his symptoms and his positive stress test moved on to a cardiac catheterization which was positive. ??He currently is having no symptoms of angina. ??His symptoms are brought on by minimal amounts of activity and relievedwith rest. ??He currently does not have symptoms at rest. ? His past medical history significant for hypertension and hyperlipidemia ? His past surgical history has a pertinent negative of no previous thoracic procedures or vein strippings. ? He has no known drug allergies ? Major Procedures/Operations: 09/11/17 CABG times 2: ALFREDO to LAD, SVG to om. ?? Endoscopic vein harvest ?? Hospital Course: Keegan Cabrera was admitted to [facility] on 09/11/2017via the Same Day Program. He was brought to the operating room where Dr. Pablo Govea performed cabgx2. He tolerated the procedure and was brought to the Cardiovascular Intensive Care Unit for recovery. He initially required the pharmacologic support of intravenous levo. He was extubated fromthe ventilator on the day of surgery. All drips were weaned to off. Routine postoperative and home medications were started and a diet was advanced. He was started on beta blockade and this was optimized. Diuretics were started and he responded appropriately. By postoperative day # 1 he was transferred to the Intermediate Cardiac Care Unit for continued rehabilitation. All tubes, lines, and epicardial pacing wires were removed without incident. He voided normally after his [place] was removed. POD#2 he went into AFIB. He was started on amiodarone and converted to SR. He will remain on amio po for 30 days. No need for coumadin at this time. He was seen by Physical Therapy and Cardiac Rehabilitation. Sternal precaution education was provided. His discharge plan at this time is to home. The remainder of the his hospital course was uneventful and by postoperative day #4 he had met all criteria for discharge. Pain was controlled on oral medications. He had walked 5 minutes and gone up and down stairs. He was tolerating a regular diet and had a bowel movement. Vital Signs at Discharge: Last set of vitals: BP 146/79 (BP Location (NBP): Left arm, Patient Position: Sitting) Pulse 74 Temp 36.7 ??C (98.1 ??F) (Oral) Resp 17 Ht 182.9 cm (6') Wt (!) 136.7 kg (301 lb 5.9 oz) SpO2 98% BMI 40.87 kg/m2 Patient Vitals for the past 168 hrs: Weight 03/ 0620 (!) 136.7 kg (301 lb 5.9 oz) 09/14/18 0500 (!) 136.2 kg (300 lb 4.3 oz) 09/13/17 0700 135.5 kg (298 lb 11.6 oz) 09/12/17 0601 (!) 136.8 kg (301 lb 9.4 oz) 09/11/17 0616 130 kg (286 lb 9.6 oz) Current weight: 136.7 kg Admit/Preop weight: 130 kg Pertinent physical exam findings prior to discharge: General:well appearing, pleasant Neuro:awake and alert, oriented x 3, no motor/neuro deficits Lungs:clear bilaterally, dim bibasilar Heart:S1 S2 audible and regular Abdomen:soft, obese, non-tender, +bowel sounds Ext: no evidence of edema, (+) distal pulses palpable : urine clear yellow Incisions: sternotomy CDI Important Studies and Lab Data: Lab Results Component Value Date WBC 5.6 09/14/2017 RBC 3.49 (L) 09/14/2017 HGB 10.5 (L) 09/14/2017 HCT 31.2 (L) 09/14/2017 PLATELET 114 (L) 09/14/2017 Recent Labs 09/11/17 1015 INR 1.5* Lab Results Component Value Date NA 138 09/14/2017 K 3.5 09/15/2017 CL 102 09/14/2017 CO2 25 09/14/2017 BUN 27 (H) 09/14/2017 CREATININE 1.19 09/14/2017 Pending Studies and Lab Data: none Immunizations Given this Hospitalization: There is no immunization history on file for this patient. Smoking Status at Discharge: History Smoking Status ??? Former Smoker Smokeless Tobacco ??? Never Used STS Data Medications: Pre-operative beta kady? Given Discharge beta kady? Given Discharge lipid therapy? Given Discharge anti-platelet therapy? Given Discharge Medications: Your Medications New Medications Dose Details acetaminophen 500 mg Tab Commonly known as: TYLENOL Take 2 tablets by mouth every 6 hours as needed for Pain. 1000 mg Quantity: 30 tablet Refills: 1 AMIOdarone 200 mg Tab Commonly known as: CORDARONE; PACERONE Take 1 tablet by mouth 2 times daily. 200 mg Quantity: 60 tablet Refills: 0 furosemide 20 mg Tab Commonly known as: LASIX Take one tablet twice a day for 14 days, then daily Quantity: 45 tablet Refills: 3 meTOPROLOL tartrate 25 mg Tab Commonly known as: LOPRESSOR Take 1 tablet by mouth every 8 hours. 25 mg Quantity: 180 tablet Refills: 3 potassium chloride 10 mEq Tbsr Commonly known as: K-DUR/KLOR-CON Take One tablet by mouth twice a day for 14 days then daily Quantity: 45 tablet Refills: 3 senna-docusate 8.6-50 mg Tab Commonly known as: PERICOLACE Take 2 tablets by mouth daily as needed for Constipation. 2 tablet Quantity: 60 tablet Refills: 11 Continued medications with new dosing Dose Details simvastatin 20 mg Tab Commonly known as: ZOCOR Take 1 tablet by mouth nightly. What changed: - medication strength - how much to take 20 mg Quantity: 90 tablet Refills: 3 Continued medications, unchanged Dose Details aspirin 81 mg Tbec Take 81 mg [...] mouth. 200 mcg Refills: 0 STOPPED Medications amLODIPine 5 mg Tab Commonly known as: NORVASC chlorhexidine 4 % Liqd Commonly known as: HIBICLENS meTOPROLOL succinate 50 mg Tablet sr Commonly known as: TOPROL-XL UNABLE TO FIND valsartan-hydrochlorothiazide 160-12.5 mg Tab Commonly known as: DIOVAN-HCT Instructions Given to Patient at Discharge: General [...] Pablo Govea and/or the Cardiac Surgery Physician Customer Sales Advisor Team may be reached at . Weight: Weigh yourself daily. Please call the office if you notice increasing weight, increasing fluid retention (edema), and/or SOB. Sternal (breast bone) precautions: No lifting greater than 7-10 pounds; no pushing or pulling with upper extremities; no excessive chest stretching for the first 4 weeks. Further instructions will begiven to you at your follow-up appointment. Activity level: Walk three times a day. You should continue to increase your walks by 1-2 minutes each day. It is expected that you will be walking 20-30 minutes twice a day within 3-4 weeks after discharge to home. Rest between activities and after meals. Use common sense, don't exhaust yourself. Biking: You may use a stationary bicycle whenever you are comfortable enough to permit this. Tighten the resistance slightly. Increase the amount of time on the bicycle as you would do for your walks, a minute or two each day. No biking outside until after your return appointment with Dr. Pablo Swenson. You may use a [place] Track or treadmill but avoid any pulling motion with the arms. Home activities: You may do light housework, e.g. dusting, setting the table, washing dishes, preparing a meal. Light carpentry and gardening are allowed. Avoid trying to open tight jars and stuck windows. No vacuuming, mopping, raking, shoveling, digging or hoeing until after your return visit with the surgeon. Sexual activity: You may engage in sexual activity when you feel ready. Use a position that protects your sternum (breastbone). Do not have your partner lie on your chest. Stairs: There are no restrictions on stair climbing. Use common sense. Don't exhaust yourself. Activities outside the home: After the first week home you may go out to dinner, visit friends, go to a movie, go to lutheran, etc. Heavy activities: No hunting, skiing, jogging, snow shoveling, snowmobiling, lawn mowing, swimming,golf or tennis until after your return appointment with the surgeon. Do not ride motorcycles, [employer]'stractors or horses. Avoid the use of a rifle with kickback against the shoulder for six months. Sleep: Try to establish normal sleep patterns. Long naps during the day may make it hard for you tosleep at night. Use the pain medication at bedtime for the first week at home. If you have nightmares, contact us. Some medications make this worse and these can be changed. Smoking: It is very important that you not smoke after surgery. Smoking cessation education was provided as appropriate. If you need further assistance with this please call and you will be referred to a smoking cessation specialist. Medications: Take only those medications listed on your discharge information. Keep your pain undercontrol so you can be active, do your coughing and breathing exercises and sleep. Contact us if thepain medication isn't working for you. Do not take any herbal preparations until after you return to see the surgeon. Special Physician Instructions: DO NOT USE ANY IBUPROFEN (ADVIL, MOTRIN, ETC) OR OTHER NSAIDS (NONSTEROIDAL ANTI-INFLAMMATORY DRUGS) FOR A TOTAL OF 10 DAYS AFTER SURGERY. PLEASE CONTACT THE CARDIOTHORACIC SURGERY OFFICE IF YOU HAVE QUESTIONS ABOUT WHICH DRUGS YOU SHOULD NOT USE. . Diet: You should follow a regular diet until your appetite returns to normal. At that point in timeyou should resume a low fat, low cholesterol, [place] Heart Association Diet Driving: No driving until cleared by your surgeon. Avoid long trips if possible. If you must go on a long trip, stop the car and walk every hour. Shower/Bath: You may shower daily. No baths, [...] Elevate your legs when you are sitting. REMOVE CHEST TUBE SUTURES ON OR AFTER 09/21/17 Home oxygen therapy: N/A Follow up appointments: Patient to follow-up with PCP, Devorah Epstein MD, in 1-2 weeks. Patient to follow-up with Chemistry Physics Teacher, Dr. Marie, in two weeks. Patient to follow-up with Cardiac Surgery, Dr. Pablo Govea, in ~ 4 weeks with CXR, EKG. Cardiac Rehabilitation: Keegan Thomas Deborah was seen today regarding participation in the outpatientPhase 2 Cardiac [facility] at [facility] . The patient agrees to a referral to this program. The referral will be sent at discharge and the patient should be contacted by the Program within 1- 2 weeks from discharge. Future Appointments and Orders Future Orders Complete By Expires XR Chest PA & Lateral (Generic) [[id number] Custom] 09/16/2017 03/18/2018 Process Instructions: Scheduling Instructions: Questions: Where will study be performed?: [place] [facility] Portable exam?: Reason for exam and clinical history: s/p cabg Other pertinent information: Stat read required?: Date of injury if applicable: Requested Time: EKG 12 Lead [EKG1 Custom] As directed Process Instructions: Scheduling Instructions: Questions: Which DH location will this be performed?: [place] Is a rhythm strip needed?: No If EKG Reason is Pre-op Evaluation, indicate diagnosis for surgery.: Referral to Cardiac Rehab [VUF299 Custom] As directed Process Instructions: If no progress note charted, please enter Clinical details in comments. Scheduling Instructions: Questions: My question or request is: s/p CABG. Cardiac rehab at [facility]. 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 In discussion with the attending physician, it is certified that this patient is under their care and that they, or a Nurse Practitioner, or Physician Customer Sales Advisor who is working directly with them, hada face to face encounter that meets the physician face to face encounter requirements with this patient on 09/14/2017 The encounter with the patient was in whole, or in part, for the following medical condition, whichis the primary reason for home health care services: 09/12/17 In discussion with the provider, it is certified that, based on their findings, the following services are medically necessary for home health services. To provide the following care/treatments with the clinical findings supporting the need for services as follows: HOME HEALTH AGENCY: [facility] PHONE: [phone] FAX: [phone] RN orders: Cardiopulmonary assessment, incisional assessment, assess vital signs, assessment of rehab progress, medication management and effectiveness, home safety evaluation. PT ORDERS: Continue rehab for endurance, gait stability and strength with mobility and transfers. Home safety evaluation. Home exercise program if appropriate. Start of Care Date:24-48 hours from discharge SPECIAL INSTRUCTIONS: For any follow up questions, needs, or issues please call the Cardiac SurgeryOffice at [phone] FOR MEDICARE ONLY: (please delete this section if not Medicare) In discussion with the attending physician, it is certified that the clinical findings support thatthis patient is homebound i.e. absences from home require considerable and taxing effort due to: Restricted mobility and poor activity tolerance due to recent cardiac surgery. Patient requires assistance of another person to leave the home. Home Health agencies which cover the area of patient's residence have been reviewed, either verbally or in writing, and patient/family have chosen the agency as noted. Questions: Agency name and contact information: [place] Patient location post discharge: home What services are requested: Registered Nurse Physical Therapy Start date: Responsible MD post discharge contact info: PCP Arrangements for VNA/home care: As above. VN RN OR PCP TO PLEASE REMOVE CHEST TUBE SUTURES ON OR AFTER 09/21/17 Signed: FLOWER SMITH APRN [facility] Section of Cardiac Surgery [facility] [place] [address] FAX [phone] Date: 09/15/2017 CC: MD Lucian Henry Dana C, MD [address] [place] [address] documented in this encounter Discharge Instructions * Patient Instructions* Flower Smith APRN - 09/15/2017 9:34 AM EDT Discharge Instructions: ?? Call your doctor if: You have a fever of greater than 101 degrees, shaking chills, if you develop redness or drainage from your incision sites, or if you have questions. Please call your surgeon's office if you have any discharge or drainage from your chest incision. Your surgeon, Dr. Pablo Thomas. Jeferson and/or the Cardiac Surgery Physician Customer Sales Advisor Team may be reached at . ?? Weight: Weigh yourself daily. Please call the office if you notice increasing weight, increasing fluid retention (edema), and/or SOB. ?? Sternal (breast bone) precautions: No lifting greater than 7-10 pounds; no pushing or pulling with upper extremities; no excessive chest stretching for the first 4 weeks. Further instructions will begiven to you at your follow-up appointment. ?? Activity level: Walk three times a day. You should continue to increase your walks by 1-2 minutes each day. It is expected that you will be walking 20-30 minutes twice a day within 3-4 weeks after discharge to home. Rest between activities and after meals. Use common sense, don't exhaust yourself. ?? Biking: You may use a stationary bicycle whenever you are comfortable enough to permit this. Tighten the resistance slightly. Increase the amount of time on the bicycle as you would do for your walks, a minute or two each day. No biking outside until after your return appointment with Dr. Pablo Swenson. You may use a [place] Track or treadmill but avoid any pulling motion with the arms. ?? Home activities: You may do light housework, e.g. dusting, setting the table, washing dishes, preparing a meal. Light carpentry and gardening are allowed. Avoid trying to open tight jars and stuck windows. No vacuuming, mopping, raking, shoveling, digging or hoeing until after your return visit with the surgeon. ?? Sexual activity: You may engage in sexual activity when you feel ready. Use a position that protects your sternum (breastbone). Do not have your partner lie on your chest. ?? Stairs: There are no restrictions on stair climbing. Use common sense. Don't exhaust yourself. ?? Activities outside the home: After the first week home you may go out to dinner, visit friends, go to a movie, go to lutheran, etc. ?? Heavy activities: No hunting, skiing, jogging, snow shoveling, snowmobiling, lawn mowing, swimming,golf or tennis until after your return appointment with the surgeon. Do not ride motorcycles, ATV'stractors or horses. Avoid the use of a rifle with kickback against the shoulder for six months. ?? Sleep: Try to establish normal sleep patterns. Long naps during the day may make it hard for you tosleep at night. Use the pain medication at bedtime for the first week at home. If you have nightmares, contact us. Some medications make this worse and these can be changed. ?? Smoking: It is very important that you not smoke after surgery. Smoking cessation education was provided as appropriate. If you need further assistance with this please call and you will be referred to a smoking cessation specialist. ?? Medications: Take only those medications listed on your discharge information. Keep your pain undercontrol so you can be active, do your coughing and breathing exercises and sleep. Contact us if thepain medication isn't working for you. Do not take any herbal preparations until after you return to see the surgeon. ?? Special Physician Instructions: DO NOT USE ANY IBUPROFEN (ADVIL, MOTRIN, ETC) OR OTHER NSAIDS (NONSTEROIDAL ANTI-INFLAMMATORY DRUGS) FOR A TOTAL OF 10 DAYS AFTER SURGERY. PLEASE CONTACT THE CARDIOTHORACIC SURGERY OFFICE IF YOU HAVE QUESTIONS ABOUT WHICH DRUGS YOU SHOULD NOT USE. . ? Diet: You should follow a regular diet until your appetite returns to normal. At that point in timeyou should resume a low fat, low cholesterol, [employer] Heart Association Diet ?? Driving: No driving until cleared by your surgeon. Avoid long trips if possible. If you must go on a long trip, stop the car and walk every hour. ?? Shower/Bath: You may shower daily. No baths, [...] Elevate your legs when you are sitting. ?? REMOVE CHEST TUBE SUTURES ON OR AFTER 09/21/17 ?? Home oxygen therapy: N/A ?? Follow up appointments: ? Patient to follow-up with PCP, Devorah Epstein MD, in 1-2 weeks. ?? Patient to follow-up with Chemistry Physics Teacher, Dr. Marie, in two weeks. ?? Patient to follow-up with Cardiac Surgery, Dr. Pablo Govea, in ~ 4 weeks with CXR, EKG. ?? Cardiac Rehabilitation: Keegan Cabrera??was seen today regarding participation in the outpatient Phase 2 Cardiac Rehabilitation at [facility]??Hospital . ?? The patient agrees to a referral to this program.? The referral will be sent at discharge and the patient should be contacted by the Program within 1- 2 weeks from discharge. documented in this encounter Medications at Time [...] of this encounter Progress Notes * Mara Hood RN - 09/15/2017 9:57 AM EDT Pt dc'd off tele, IV's removed intact. Faxed a copy of discharge instructions to VNA, followed up with phonecall. Pt and family stated an understanding of dischargew instructions, follow up appointments, medications and activity tolerance. Pt dc'd to home with VNA * Joan Garza PTA - 09/15/2017 9:35 AM EDT Physical Therapy Treatment Treatment Number PT: 2 Pertinent History of Current Problem: S/p CABG x2 Precautions/Restrictions: fall, sternal Assessment: Pt seen for functional mobility, strength, endurance and pt education. Pt ambulated around unit with FWW and decreased gait speed. Pt reported gait speed and increased comfort with use ofFWW due to discomfort in R knee from arthritis. Performed step up to a stair with 1 railing for balance and no LOB. Pt has bed features at home and was able to independently get in/out of bed with HOB elevated and hugging heart pillow. Pt was able to maintain sternal precautions throughout treatment and was educated on appropriate/inapporopriate household activities with sternal precautions with good understanding. Pt has met PT goals set by primary PT. Will continue to monitor until medically ready for D/C. Please see the flow sheet below for patient details and mobility. Pt would benefit from ongoing physical therapy interventions after D/C. Staff Mobility Recommendations Ambulated in sebastian 3-4x/day with FWW CARLOS Jackman Pager: [phone] Inpatient Physical Therapy SPTA observed while treating patient and POC and Rx discussed prior to Rx. Joan Garza PTA Pager: [phone] 09/15/17 0961 Rehab Evaluation Document Type therapy note (daily note) Total Evaluation Minutes, Physical Therapy 11 (TE-F x1) Patient Effort excellent Symptoms Noted During/After Treatment fatigue General Information Patient Profile Review yes Patient/Family/Caregiver Comments/Observations Is this bump on my scar going to go away? Pertinent History of Current Problem S/p CABG x2 Precautions/Restrictions fall;sternal Treatment Number PT 2 Vital Signs O2 Device RA Pain Scale/Rating Pain Assessment Scale Numbers (Numeric Rating Pain Scale) Pain Level 0 Mobility Assessment/Training Additional Documentation Bed Mobility Assessment/Treatment (Group);Gait Assessment/Treatment (Group);Stairs Assessment/Treatment (Group);Transfer Assessment/Treatment (Group) Bed Mobility Assessment/Treatment Zrgezu-vx-Ksq [place] (Bed Mobility) independent Hez-me-Hmzriq [place] (Bed Mobility) independent Comment (Bed Mobility) HOB elevated, pt has bed features at home Transfer Assessment/Treatment [place] (Sit-Stand Transfers) independent [place] (Stand-Sit Transfers) independent Rpv-Ankfy-Mdc Assistive Device (Transfers) rolling walker Comment (Transfers) no LOB, up from recliner and EOB Gait Assessment/Treatment [place] (Gait) conditional independence Assistive Device (Gait) rolling walker Distance in Feet (Gait) 160 Gait Pattern Analysis swing-through gait Deviations (Gait) step length decreased Comment (Gait) decreased gait speed due to R knee discomfort Stairs Assessment/Treatment Number of Stairs (Stairs) 1 Handrail Location (Stairs) left side (ascending) [place] (Stairs) supervision required Technique (Stairs) [id number]-ji-[id number] (ascending);rkkw-ik-kmag (descending) Comment (Stairs) no LOB, good control Plan of Care Review Plan Of Care Reviewed With patient;family Progress progress toward functional goals as expected Bed Mobility Goal Bed Mobility Goal, Date Established 09/13/17 Bed Mobility Goal, Time to Achieve 5 days Bed Mobility Goal, Activity Type supine to sit/sit to supine Bed Mobility Goal, [place] Level independent Bed Mobility Goal, Outcome Achieved goal met Gait Training Goal Gait Training Goal, Date Established 09/13/17 Gait Training Goal, Time to Achieve 5 days Gait Training Goal, [place] Level conditional independence Gait Training Goal, Assist Device (LRD) Gait Training Goal, Distance to Achieve 300ft Gait Training Goal, Additional Goal Pt up and down 1 step without rail and supervision Gait Training Goal, Outcome goal partially met Transfer Training Goal Transfer Training Goal, Date Established 09/13/17 Transfer Training Goal, Time to Achieve 5 days Transfer Training Goal, Activity Type ddt-kj-fxeot/stiwl-tl-rdu;fmh-vg-qwzfx/zfyul-zr-sgj Transfer Train Goal, [place] Level conditional independence Transfer Training Goal, Assist Device (LRD) Transfer Training Goal, Outcome goal met Physical Therapy Goal PT Goal, Date Established 09/13/17 PT Goal, Time to Achieve 5 days PT Goal, Activity Type Pt indep with all sternal precuations with all transfers without cues PT Goal, Outcome goal met Clinical Impression Therapy Frequency (Cleared from PT) Anticipated Equipment Needs at Discharge (no device, has rollator at home) Anticipated Discharge Disposition home with assist * Mara Hood RN - 09/14/2017 1:47 PM EDT OCCUPATIONAL PSYCHOLOGIST Flower notified, pt had a 10 beat run of Vtach, asymptomatic, VSS. Magnesium given, will continue to monitor. * Flower Smith APRN - 09/14/2017 9:08 AM EDT Cardiac Surgery Progress Note: ID: [id number] POD #3, s/p CABG x 2. Pmhx: HTN, HLD, former smoker, obesity EF-60% 24 Hour Events: afib noc converted after amio started Voiding post madison removal without issue S: pt has no complaints. Denies any pain. Is passing flatus, + bm. O: Temperature Temp: 37 ??C (98.6 ??F) Temp: [36.7 ??C (98.1 ??F)-37.6 ??C (99.7 ??F)] Heart Rate Heart Rate: 82 Heart Rate: [73-121] Blood Pressure BP: 122/61 BP: (100-131)/(49-67) Respiratory Rate Resp: 18 Resp: [16-20] SpO2 SpO2: 95 % SpO2: [91 %-100 %] I/O last 3 completed shifts: In: 2277.4 [P.O.:1961; I.V.:316.4] Out: 2700 [Urine:2700] Admit weight 130 kg Current Weight Weight: (!) 136.2 kg (300 lb 4.3 oz) Patient Vitals for the past 168 hrs: Weight 09/14/17 0500 (!) 136.2 kg (300 lb 4.3 oz) 09/13/17 0700 135.5 kg (298 lb 11.6 oz) 09/12/17 0601 (!) 136.8 kg (301 lb 9.4 oz) 09/11/17 0616 130 kg (286 lb 9.6 oz) Physical exam: General:well appearing, pleasant Neuro:awake and alert, oriented x 3, no motor/neuro deficits Lungs:clear bilaterally, dim bibasilar Heart:S1 S2 audible and regular Abdomen:soft, obese, non-tender, +bowel sounds Ext: no evidence of edema, (+) distal pulses palpable : urine clear yellow Incisions: sternotomy dressing CDI Tubes/Lines/Drains:PIV LABS: Recent Labs 09/14/17 0415 09/12/17 0425 09/11/17 1700 09/11/17 1015 09/11/17 0930 WBC 5.6 5.6 -- 9.3 -- HGB 10.5* 10.7* 11.6* 10.0* 9.9* HCT 31.2* 31.8* -- 30.3* 29.2* PLATELET 114* 113* -- 161 176 PT -- -- -- 17.5* -- INR -- -- -- 1.5* -- PTT -- -- -- 34 -- FIBRINOGEN -- -- -- 193 182 Recent Labs 09/14/17 0415 09/13/17 0338 09/12/17 0425 09/11/17 1700 NA 138 -- 139 -- K 3.4* 4.1 4.0 4.0 4.1 CL 102 -- 107 -- CO2 25 -- 21* -- BUN 27* -- 21* -- CREATININE 1.19 -- 1.13 -- GLUCOSE 157 -- -- -- CALCIUM 8.6 -- -- -- Assessment/Plan: POD #3, s/p CABG x 2. Pt has afib noc. Will continue amio gtt for the day and transition to po tonight. Pt has weaned to RA, continue IS, Ambulation. Will review day 3 cxr,. Labs reviewed. Neuro:routine neuro exams, scheduled APAP, oxycodone prn CV: metoprolol 25mg PO BID, nightly statin, amio to po later today Resp: RA CPAP at night, pulse oximetry, hourly IS GI: ADAT daily protonix, RBOs : VOIDING Renal: replete K+ per protocol ID:intra-op antibiotics COMPLETE Heme:daily ASA Endo: IDA Dispo:[facility] Attending Surgeon on rounds. FLOWERAdama SMITH, DIE ENGRAVER Date: 09/14/2017 * Vaishali Escobar RN - 09/14/2017 8:24 AM EDT The patient/herbicide service sales representative has been provided a list of Home Health Agencies/DME vendors which servetheir preferred geographic area. A letter describing our affiliations was reviewed with them and they were educated about their right to choose where referrals are placed. Patient requests referral to [facility]. PHONE: [phone] FAX: [phone] Expected date of discharge: 09/15/17 Referral routed to the Sourcing [employer]ship for matching with agency/vendor and to provide any required information. * Mar Nash, RN - 09/14/2017 4:40 AM EDT OUTCOME EVALUATION NOTE: OUTCOME SUMMARY: Shay had a good night, slept between care. SR on tele with non-sustained conversion to AFib (Amio gtt initiated), 1'AVB (0.23), rare - frequent PVCs, P- wave changes, rare PACs, HR 60-90. Pt sats wellon RA while awake, utilized CPAP overnight. Pt received scheduled tylenol for slight MSI pain/discomfort. Endorsed some SOB while ambulating while in AFib. Amio gtt infusing @ 0.5 mg/min. POD 3 AM CXR to be obtained. PLAN MOVING FORWARD: Continue pathway and Amio load INDIVIDUALIZED FALL PREVENTION INTERVENTIONS: Patient-specific fall risk factors per assessment: [current deficits]: New environment, tele wires,IV pole/tubing, recent surgery Assistance [level of assistance required for transfers and ambulation]: SBA with FWW Supervision [direct monitoring required during toileting and ADLs]: Arms reach, call echeverria within reach Surveillance [continuous indirect monitoring]: Hourly rounding, room near nurses station, telemetrymonitoring Patient-specific fall prevention interventions for sensory deficits provided, if applicable: N/A CPG GOAL OUTCOME EVALUATION: On-going * Flower Smith, QI - 09/13/2017 8:29 AM EDT Cardiac Surgery Progress Note: ID: [id number] POD #2, s/p CABG x 2. Pmhx: HTN, HLD, former smoker, obesity EF-60% 24 Hour Events: tx to floor Pathway Urology replaced madison with coude tip catheter, hematuria resolved S: pt has no complaints. Denies any pain. Is passing flatus, no bm. Has ambulated this am already. O: Temperature Temp: 37.3 ??C (99.1 ??F) Temp: [36.9 ??C (98.4 ??F)-37.3 ??C (99.1 ??F)] Heart Rate Heart Rate: 76 Heart Rate: [68-86] Blood Pressure BP: 121/60 BP: (105-129)/(56-65) Respiratory Rate Resp: 18 Resp: [18-21] SpO2 SpO2: 94 % SpO2: [91 %-100 %] I/O last 3 completed shifts: In: 1372.7 [P.O.:710; I.V.:660.7; IV Piggyback:2] Out: 2925 [Urine:2695; Other:230] Admit weight 130 kg Current Weight Weight: 135.5 kg (298 lb 11.6 oz) Patient Vitals for the past 168 hrs: Weight 09/13/17 0700 135.5 kg (298 lb 11.6 oz) 09/12/17 0601 (!) 136.8 kg (301 lb 9.4 oz) 09/11/17 0616 130 kg (286 lb 9.6 oz) Physical exam: General:well appearing, pleasant Neuro:awake and alert, oriented x 3, no motor/neuro deficits Lungs:clear bilaterally, dim t/o Heart:S1 S2 audible and regular Abdomen:soft, obese, non-tender, +bowel sounds Ext: no evidence of edema, (+) distal pulses palpable : urine clear yellow Incisions:sternotomy dressing CDI Tubes/Lines/Drains:ADRIAN, Srinivasa LABS: Recent Labs 09/12/17 0425 09/11/17 1700 09/11/17 1015 09/11/17 0930 WBC 5.6 -- 9.3 -- HGB 10.7* 11.6* 10.0* 9.9* HCT 31.8* -- 30.3* 29.2* PLATELET 113* -- 161 176 PT -- -- 17.5* -- INR -- -- 1.5* -- PTT -- -- 34 -- FIBRINOGEN -- -- 193 182 Recent Labs 09/13/17 0338 09/12/17 0425 09/11/17 1700 NA -- 139 -- K 4.1 4.0 4.0 4.1 CL -- 107 -- CO2 -- 21* -- BUN -- 21* -- CREATININE -- 1.13 -- Assessment/Plan: POD #2, s/p CABG x 2. Pathway. Hematuria has resolved. Will d/c srinivasa cullen, d/c pw. Increase bb to 25 bid for run of atach. Pt has first degree of 0.24, similar to first degree preop. Neuro:routine neuro exams, scheduled APAP, oxycodone prn CV: metoprolol 25mg PO BID, nightly statin Resp:2L NC, wean as tolerated, CPAP at night, pulse oximetry, hourly IS GI: ADAT daily protonix, RBOs :SRINIVASA D/C Renal: replete K+ per protocol ID:intra-op antibiotics COMPLETE Heme:daily ASA Endo: IDA Dispo:[facility] DW Attending Surgeon on rounds. FLOWER SMITH APRN Date: 09/13/2017 * Mona Nix RCP - 09/13/2017 5:09 AM EDT Pt compliant with home NIV overnight. Will continue to monitor pt. * Analia Shannon APRN - 09/12/2017 9:42 AM EDT Cardiac Surgery Progress Note: ID: [id number] POD #1, s/p CABG x 2. Pmhx: HTN, HLD, former smoker, obesity EF-60% 24 Hour Events: extubated @ 2:15p yestereday, CPAP overnight, 4L NC otherwise, comfortable S:I have no pain surprisingly. Review of Systems - General ROS: negative for - chills or fever Respiratory ROS: negative for - cough or shortness of breath Cardiovascular ROS: negative for - chest pain, palpitations or rapid heart rate Gastrointestinal ROS: negative for - abdominal pain or nausea/vomiting Neurological ROS: negative for - acute TIA or stroke symptoms O: Temperature Temp: 37.2 ??C (99 ??F) Temp: [35.6 ??C (96.1 ??F)-37.3 ??C (99.1 ??F)] Heart Rate Heart Rate: 69 Heart Rate: [46-85] Blood Pressure BP: 101/45 BP: (101-115)/(45-51) Respiratory Rate Resp: 10 Resp: [0-27] SpO2 SpO2: 97 % SpO2: [93 %-100 %] Drips: NTG @ 50mcg/min I/O last 3 completed shifts: In: 6081.4 [I.V.:4741.4; Blood:840; Other:500] Out: 1810 [Urine:1550; Other:260] I/O this shift: In: 184.5 [P.O.:50; I.V.:132.5; IV Piggyback:2] Out: 140 [Other:140] I- O- 1550cc Net - (+) 4.2L Admit weight 130 kg Current Weight Weight: (!) 136.8 kg (301 lb 9.4 oz) Patient Vitals for the past 168 hrs: Weight 09/12/17 0601 (!) 136.8 kg (301 lb 9.4 oz) 09/11/17 0616 130 kg (286 lb 9.6 oz) Physical exam: General:well appearing, pleasant Neuro:awake and alert, oriented x 3, no motor/neuro deficits Lungs:clear bilaterally, chest tubes to atrium with suction, no evidence of airleak Heart:S1 S2 audible and regular Abdomen:soft, obese, non-tender, hypoactive bowel sounds Ext:no evidence of edema, (+) distal pulses palpable : gross hematuria noted from madison Incisions:sternotomy dressing CDI Tubes/Lines/Drains:LRAL, right IJ introducer, PW, madison, chest tubes LABS: Recent Labs 09/12/17 0425 09/11/17 1700 09/11/17 1015 09/11/17 0930 WBC 5.6 -- 9.3 -- HGB 10.7* 11.6* 10.0* 9.9* HCT 31.8* -- 30.3* 29.2* PLATELET 113* -- 161 176 PT -- -- 17.5* -- INR -- -- 1.5* -- PTT -- -- 34 -- FIBRINOGEN -- -- 193 182 Recent Labs 09/12/17 0425 09/11/17 1700 NA 139 -- K 4.0 4.0 4.1 CL 107 -- CO2 21* -- BUN 21* -- CREATININE 1.13 -- ABG (Arterial Blood Gas) Lab Results Component Value Date pH Art 7.32 (L) 09/11/2017 pO2 Art 101 09/11/2017 pCO2 Art 39 09/11/2017 Assessment/Plan: POD #1, s/p CABG x 2. Pathway. Gross hematuria noted from madison, urology consult called. Will dc CTs today and start BB. Will transfer to floor when bed available. Neuro:routine neuro exams, scheduled APAP, oxycodone prn CV:continue cardiac monitoring, wean NTG drip to off (off 7a), start metoprolol 12.5mg PO BID, nightly statin Resp:4L NC, wean as tolerated, CPAP at night, pulse oximetry, hourly IS, dc chest tubes GI:sips and chips this morning, daily protonix, RBOs :urology consult, in to see patient and madison catheter changed to coude catheter, manual irrigation prn Renal: replete K+ per protocol ID:intra-op antibiotics Heme:daily ASA Endo:insulin as per protocol Dispo:[facility], full code, possible transfer later in shift DW Attending Surgeon on rounds. Signed: Analia Shannon APRN [facility] Section of Cardiac Surgery Date: 09/12/2017 * Ju Witt, [facility] - 09/11/2017 12:45 PM EDT AMV Protocol: No CTICU Protocol: Yes SBT Protocol: Yes Vent Settings: Servo I Ventilator Mode: SIMV Vol + PS Tidal Volume Set: 620 Resp Rate Set: (S) 14 PEEP Set: 8 FiO2: (S) 40 % PSV: 10 Ventilator Measurements: Resp: 14 Vt Exhaled: 619 PIP: 25 Vt Spontaneous: MAP: 12 Plateau Press: 18 Ve: 6.8 PEEP: 8 cmH20 SpO2: 98 % EtCO2: 33 mmHg Airway: 8.0 @ 26 cm at the Teeth. Skin Integrity: WDL Breath Sounds: Clear, Diminished Secretions: Small amount of thin white, clear Assessment / Events / Plan of the Day: Pt received intubated post op was placed on SIMV Vol + PS VT 620 ( 8 cc/Kg) RR 14 PEEP 8 (Per Anesthesia ) PS above PEEP 10 and 100% FIO2 CXR obtained ETT advanced From 24 to 26 cm at teeth , ABG obtained 30 min On 100% FIO2 Results: 7.30/45/260/21.7 PF ratio 260 Vent changes made: FIO2 weaned to 40% Pt weaned Per CTICU protocol ~13:36 Pt placed on SBT on PS 5 PEEP 8 ( per MD request PEEP remains set at 8 ) and 40% FIO2 ~14:09 ABG obtained 30 min post SBT Results : 7.32/39/101/19.8 Orders in placed for extubation Pt was extubated without issues to 5L NC SPO2 98% RR 18 negative strider and was able to talk Pt home CPAP present at beside , pt wear nocturnally for MALCOM Pt placed on Home CPAP in afternoon for nap with 3L bled in pt tolerated Well Plan: Cont to monitor and support CPAP nocturnally for MALCOM documented in this encounter H&P Notes * Pablo Govea MD - 09/11/2017 7:04 AM EDT No interval change, pt ready for surgery. Source Note - Pablo Govea MD - 09/11/2017 7:04 AM EDT This is a patient of Dr. Marie that we are seeing for consideration of CABG surgery. ?? This is a 77-year-old male who had been having symptoms of dyspnea on exertion who had a stress test done at [facility] that revealed moderate risk for a cardiac event. In light of his symptoms and his positive stress test moved on to a cardiac catheterization which was positive. He currently is having no symptoms of angina. His symptoms are brought on by minimal amounts of activity and relieved with rest. He currently does not have symptoms at rest. ?? His past medical history significant for hypertension and hyperlipidemia ?? His past surgical history has a pertinent negative of no previous thoracic procedures or vein strippings. ?? He has no known drug allergies ?? He is afebrile his vital signs are stable He is normocephalic atraumatic He has no jugular venous distention at 45?? His lungs are clear I hear no murmurs His abdomen soft nontender In a lying position he has no varicosities ?? I seen his echo his EF is 55-60% he does have an enlarged aorta at about 4.6 cm he has no evidence of aortic stenosis and has 1+ AI. ?? I seen his cardiac catheterization he has significant disease of his LAD and its obtuse marginal. These are both good targets. His RCA is heavily calcified but there is no significant disease read bythe telecommunications line installer. ?? Impression 77-year-old gentleman who is a reasonable candidate for CABG surgery. The plan will be an MIAH to his LAD and a vein to the obtuse marginal. He and I have discussed the risks and benefits of the surgery and that the risks include but are not limited to bleeding infection organ failure stroke he has had the opportunity ask questions as well as his daughter these were answered and th ere appeared to be no barriers to learning ?? The plan is CABG surgery unless his symptoms accelerate he will remain outpatient. ?? This was a 30 minute visit 20 minutes were spent [id number] discussing the risks and benefits of CABG surgery ? * Pablo Govea MD - 09/11/2017 7:04 AM EDT This is a patient of Dr. Marie that we are seeing for consideration of CABG surgery. ?? This is a 77-year-old male who had been having symptoms of dyspnea on exertion who had a stress test done at [facility] that revealed moderate risk for a cardiac event. In light of his symptoms and his positive stress test moved on to a cardiac catheterization which was positive. He currently is having no symptoms of angina. His symptoms are brought on by minimal amounts of activity and relieved with rest. He currently does not have symptoms at rest. ?? His past medical history significant for hypertension and hyperlipidemia ?? His past surgical history has a pertinent negative of no previous thoracic procedures or vein strippings. ?? He has no known drug allergies ?? He is afebrile his vital signs are stable He is normocephalic atraumatic He has no jugular venous distention at 45?? His lungs are clear I hear no murmurs His abdomen soft nontender In a lying position he has no varicosities ?? I seen his echo his EF is 55-60% he does have an enlarged aorta at about 4.6 cm he has no evidence of aortic stenosis and has 1+ AI. ?? I seen his cardiac catheterization he has significant disease of his LAD and its obtuse marginal. These are both good targets. His RCA is heavily calcified but there is no significant disease read bythe telecommunications line installer. ?? Impression 77-year-old gentleman who is a reasonable candidate for CABG surgery. The plan will be an MIAH to his LAD and a vein to the obtuse marginal. He and I have discussed the risks and benefits of the surgery and that the risks include but are not limited to bleeding infection organ failure stroke he has had the opportunity ask questions as well as his daughter these were answered and th ere appeared to be no barriers to learning ?? The plan is CABG surgery unless his symptoms accelerate he will remain outpatient. ?? This was a 30 minute visit 20 minutes were spent [id number] discussing the risks and benefits of CABG surgery ? documented in this encounter Procedure Notes * Jasper Tinajero MD - 09/12/2017 9:47 AM EDTProcedure(s): PRO INSERT, TEMP INDWELLING BLAD CATH, SIMPLE Pre-Procedure Diagnose(s): Gross hematuria Post-Procedure Diagnose(s): Gross hematuria Images from the original note were not included. Urology Procedure Note Procedure: Madison placement Pre-op diagnosis: Gross hematuria, ? incorrect intraoperative madison placement Post-op diagnosis: same Indications: Gross hematuria, malpositioned catheter Physicians: Jasper Tinajero MD Anesthesia: Lidocaine jelly Urojet x2 Description: Old 3 way madison catheter with no urine in tubing, dark red/merlot colored output into madison bag. A detailed inspection of the dark red urine showed zero clots in the bag. No clots were present in the entirety of the tube. Old madison was removed; no clots were appreciated on extraction. Sterile prep and drape of genitals. 2x Urojets were used and 18Fr coude tip catheter was placed easily with absolutely no resistance. After hubbing catheter, immediate return of light clear hue urine. No clots were present. No indication for manual irrigation. 10cc's of water placed in balloon. Findings: Normal urine Specimens: None Complications: None Fluids: None EBL: None Drains: 18Fr madison to gravity Post-procedure photograph: Clear yellow urine output. No clots. No hematuria. Assessment: - Light prostatic irritation or trauma in the setting of intraoperative madison placement with some bleeding at the time; now normalized, clear output Recommendations: - Madison management per primary team - No further urologic management is necessary documented in this encounter Nursing Notes * Siena Villavicencio RN - 09/11/2017 7:11 AM EDT 20 mls Nitroglycerin (200mcg) mixed with 20 mls Nacl. documented in this encounter Miscellaneous Notes * Plan of Care - Юлия Chacon RN - 09/15/2017 3:33 AM EDT OUTCOME EVALUATION NOTE: OUTCOME SUMMARY: Patient A+O x4. Midsternal chest incision well approximated. No chest pain or SOB reported. atbedside throughout shift. CPAP on overnight. Amio drip D/C'd by previous RN per orders. Patient's call echeverria in reach and patient calling appropriately. VSS. Telemetry report showed 1st degree AV block with HR 65-95 bpm and rare PVC's. Patient asymptomatic throughout shift and VSS. No reports of chest pain or SOB. PLAN MOVING FORWARD: Mobilize, monitor potassium, D/C home with VNA INDIVIDUALIZED FALL PREVENTION INTERVENTIONS: Patient-specific fall risk factors per assessment: [current deficits]: Tubing, generalized weakness, surgery Assistance [level of assistance required for transfers and ambulation]: Standby assist Supervision [direct monitoring required during toileting and ADLs]: Eyes on w/ ADL's Surveillance [continuous indirect monitoring]: Purposeful Rounding and at Bedside Patient-specific fall prevention interventions for sensory deficits provided, if applicable: N/A CPG GOAL OUTCOME EVALUATION: Progress Problem: Cardiac Surgery (Adult) Goal: Signs and Symptoms of Listed Potential Problems Will be Absent, Minimized or Managed (CardiacSurgery) Signs and symptoms of listed potential problems will be absent, minimized or managed by discharge/transition of care (reference Cardiac Surgery (Adult) CPG). 09/13/172036 Cardiac Surgery Problems Assessed (Cardiac Surgery) all Problems Present (Cardiac Surgery) dysrhythmia/arrhythmia;fluid imbalance;situational response Problem: Skin Integrity Impairment, Risk/Actual (Adult) Goal: Skin Integrity/Wound Healing Patient will demonstrate the desired outcomes by discharge/transition of care. 09/13/172245 Skin Integrity Impairment, Risk/Actual (Adult) Skin Integrity/Wound Healing making progress toward outcome Problem: Patient Care Overview Goal: Plan of Care Review 09/13/17224509/14/172138 Coping/Psychosocial Plan Of Care Reviewed With -- patient Plan of Care Review Progress progress towards functional goals is fair -- Goal: Fall Prevention-Safe Patient Handling 09/13/17203609/14/17 1226 09/14/172138 Daily Care Interventions Self-Care Promotion independence encouraged;BADL personal objects within reach;BADL personal routines maintained;meal setup provided;safe use of adaptive equipment encouraged -- -- Sosa Fall Risk History of Falling -- -- 0 Secondary Diagnosis -- -- 15 Ambulatory Aids -- -- 15 Intravenous Therapy/Heparin/Saline Lock -- -- 20 Gait/Transferring -- -- 10 Mental Status -- -- 0 Score -- -- 60 OTHER Sosa Fall Risk -- -- High Restraint Interventions Safety Promotion/Fall Prevention -- -- activity supervised;fall prevention program maintained;nonskid shoes/slippers when out of bed;safety round/check completed Positioning Body Position -- -- independent Activity Activity Type -- -- activity adjusted per tolerance;activity encouraged Activity Assistance Provided -- -- assistance, stand-by Assistive Device Utilized -- front-wheel walker -- Goal: Infection Control 09/14/172138 Safety Interventions Isolation Precautions standard precautions maintained Infection Prevention rest/sleep promoted Coping Strategies Supportive Measures active listening utilized;verbalization of feelings encouraged Goal: Discharge Needs Assessment 09/15/17316 Discharge Needs Assessment Concerns To Be Addressed denies needs/concerns at this time Readmission Within The Last 30 Days no previous admission in last 30 days Equipment Needed After Discharge none Discharge Disposition still a patient;home healthcare service Current Health Outpatient/Agency/Support Group Needs homecare agency (specify level of care) Activity/Self Care Review of Systems Equipment Currently Used at Home none Living Environment Transportation Available family or friend will provide;car Problem: Arrhythmia/Dysrhythmia (Symptomatic) (Adult) Goal: Signs and Symptoms of Listed Potential Problems Will be Absent, Minimized or Managed (Arrhythmia/Dysrhythmia) Signs and symptoms of listed potential problems will be absent, minimized or managed by discharge/transition of care (reference Arrhythmia/Dysrhythmia (Symptomatic) (Adult) CPG). 09/15/17316 Arrhythmia/Dysrhythmia (Symptomatic) Problems Assessed (Arrhythmia/Dysrhythmia) all * Plan of Care - Mara Hood RN - 09/13/2017 6:00 PM EDT Problem: Patient Care Overview Goal: Plan of Care Review Outcome: Ongoing (Interventions Implemented as Appropriate) 09/13/17 1741 Coping/Psychosocial Plan Of Care Reviewed With patient Plan of Care Review Progress improving OUTCOME EVALUATION NOTE: OUTCOME SUMMARY: Pt is following pathway, pt is on RA, showered, BM, ambulated x 3, worked with cardiac rehab and PT PLAN MOVING FORWARD: Continue to monitor for any changes in rhythm FALL PREVENTION INTERVENTIONS: Patient-specific fall risk factors per assessment: [current deficits]: rhythm changes Assistance [level of assistance required for transfers and ambulation]: 1 assist Supervision [direct monitoring required during toileting and ADLs]: purposeful hourly rounding Surveillance [continuous indirect monitoring]: Continuous hourly rounding Patient-specific fall prevention interventions for sensory deficits provided, if applicable: CPG GOAL OUTCOME EVALUATION: * Plan of Care - Giovanna Abreu PT - 09/13/2017 2:15 PM EDT Physical Therapy Evaluation Pertinent History of Current Problem: S/p CABG x 2 Precautions/Restrictions: sternal, fall Assessment: Pt seen today for evaluation in the [facility]. Pt presents with sternal precautions, impaired breathing mechanics, impaired transfers, impaired gait and impaired activity tolerance from his baseline level of independence. 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 Pt would benefit from ongoing physical therapy interventions. Staff Mobility Recommendations Ambulate 4x/daily with nursing, 1 assist, rolling walker GIOVANNA ABREU, PT Pager: [phone] Inpatient Physical Therapy 09/13/17 1035 Rehab Evaluation Document Type evaluation Total Evaluation Minutes, Physical Therapy 35 (eval; te-f) Patient Effort good Symptoms Noted During/After Treatment fatigue;shortness of breath General Information Patient Profile Review yes Patient/Family/Caregiver Comments/Observations I feel like it goes better with the walker. Pertinent History of Current Problem S/p CABG x 2 Precautions/Restrictions sternal;fall Treatment Number PT 1 Living Environment Patient population Adult Living Environment Living Environment Comment Pt reports his dtr, son-in-law and grand-dtr are gong to assist upon d/c. Pt lives in 1 level home with threshold step to enter. Pt was indep [employer]ON[employer], He is indep wihtout a device. 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 Vital Signs Heart Rate (88 rest; 106 with amb) BP 100/49 SpO2 (95% on RA at rest; 91% on RA with amb) Pain Scale/Rating Pain Level 0 ROM (Range of Motion) Additional Documentation (B shoulders to 90 degrees; old RC injuries per pt and dtr) MMT (Manual Muscle Testing) Additional Documentation (B LEs 4/5) Mobility Assessment/Training Additional Documentation Gait Assessment/Treatment (Group);Transfer Assessment/Treatment (Group) Transfer Assessment/Treatment [place] (Sit-Stand Transfers) contact guard assist;verbal cues required [place] (Stand-Sit Transfers) contact guard assist Mtf-Shvee-G[facility] Assistive Device (Transfers) rolling walker Gait Assessment/Treatment [place] (Gait) contact guard assist Assistive Device (Gait) rolling walker Distance in Feet (Gait) 160 ft Comment (Gait) decreased stance R knee Plan of Care Review Plan Of Care Reviewed With patient;daughter Physical Therapy Goal Types Physical Therapy Goal Types Gait Training Goal (Group);Bed Mobility Goal (Group);Transfer Training Goal (Group);Physical Therapy Goal (Group) Bed Mobility Goal Bed Mobility Goal, Date Established 09/13/17 Bed Mobility Goal, Time to Achieve 5 days Bed Mobility Goal, Activity Type supine to sit/sit to supine Bed Mobility Goal, [place] Level independent Gait Training Goal Gait Training Goal, Date Established 09/13/17 Gait Training Goal, Time to Achieve 5 days Gait Training Goal, [place] Level conditional independence Gait Training Goal, Assist Device (LRD) Gait Training Goal, Distance to Achieve 300 ft Gait Training Goal, Additional Goal Pt up and down 1 step without rail with supervision Transfer Training Goal Transfer Training Goal, Date Established 09/13/17 Transfer Training Goal, Time to Achieve 5 days Transfer Training Goal, Activity Type zcb-ek-hsftm/wopnc-km-mnf;vkg-cc-mofvl/tsljo-gj-qlu Transfer Train Goal, [place] Level conditional independence Transfer Training Goal, Assist Device (LRD) Physical Therapy Goal PT Goal, Date Established 09/13/17 PT Goal, Time to Achieve 5 days PT Goal, Activity Type Pt indep with all sternal precuations with all transfers without cues Clinical Impression Therapy Frequency 1-3 more visits Anticipated Equipment Needs at Discharge (TBD ? cane vs walker vs no device) Anticipated Discharge Disposition home with assist General Interventions Additional Documentation Planned Therapy Interventions (Group) Planned Therapy Interventions balance training;bed mobility training;gait training;patient/family education;stair training;transfer training 2016 PT Evaluation Code Rationale: ?? Diagnosis & Pertinent Co-Morbidities, personal factors, and present illness affecting Plan of Care: Patient Active Problem List Diagnosis Code ??? 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 Total # of Factors: 0 1-2 3+ x ?? Examination of body system impairments, functional limitations and behaviors, and/or participation restrictions. Addressing 1-2 elements Addressing 3 + elements Addressing 4 + elements x ?? Clinical presentation: See assessment above. Stable/Uncomplicated Evolving/Fluctuating Symptoms Unstable/Unpredictable x ?? Clinical decision making of high complexity based on pt's functional performance as outlined in this evaluation. * Consult Note - Ro Hamlin RN - 09/13/2017 12:15 PM EDT [facility] Keegan Cabrera was seen today regarding participation in the outpatient Phase 2 Cardiac Rehabilitation at [facility] . The patient agrees to a referral to this program. The referral will be sent at discharge and the patient should be contacted by the Program within 1- 2 weeks from discharge. * Plan of Care - Belgica Olson RN - 09/13/2017 1:13 AM EDT Problem: Cardiac Surgery (Adult) Goal: Signs and Symptoms of Listed Potential Problems Will be Absent, Minimized or Managed (CardiacSurgery) Signs and symptoms of listed potential problems will be absent, minimized or managed by discharge/transition of care (reference Cardiac Surgery (Adult) CPG). Outcome: Ongoing (Interventions Implemented as Appropriate) 09/13/17 0107 Cardiac Surgery Problems Assessed (Cardiac Surgery) all Problems Present (Cardiac Surgery) none Problem: Skin Integrity Impairment, Risk/Actual (Adult) Goal: Identify Related Risk Factors and Signs and Symptoms Related risk factors and signs and symptoms are identified upon initiation of Human Response Clinical Practice Guideline (CPG) Outcome: Ongoing (Interventions Implemented as Appropriate) 09/13/17 0107 Skin Integrity Impairment, Risk/Actual Skin Integrity Impairment, Risk/Actual: Related Risk Factors surgery/procedure Problem: Patient Care Overview Goal: Plan of Care Review Outcome: Ongoing (Interventions Implemented as Appropriate) 09/12/17 2130 09/13/17 010 Coping/Psychosocial Plan Of Care Reviewed With patient -- Plan of Care Review Progress -- progress toward functional goals as expected OUTCOME EVALUATION NOTE: OUTCOME SUMMARY: No acute complications overnight. Patient complained of chest tightness at beginning of shift, OCCUPATIONAL PSYCHOLOGIST Shiva notified. Madison catheter draining brown/tea colored urine. No complaints of discomfort. No reports of SOB. Cpap used overnight. Daughter remained at bedside. Reviewed sternal precautions w/ pa tient. Slept well through night. PLAN MOVING FORWARD: Pathway, encourage ambulation, pain control INDIVIDUALIZED FALL PREVENTION INTERVENTIONS: Patient-specific fall risk factors per assessment: [current deficits]: Unfamiliar environment, generalized weakness, IVs, telemetry, sternal precautions, urinary catheter Assistance [level of assistance required for transfers and ambulation]: 1x assist w/ walker Supervision [direct monitoring required during toileting and ADLs]: 1x assist Surveillance [continuous indirect monitoring]: Telemetry, hourly rounding, call echeverria in reach, roomnear unit station Patient-specific fall prevention interventions for sensory deficits provided, if applicable: N/a CPG GOAL OUTCOME EVALUATION: Ongoing Goal: Fall Prevention-Safe Patient Handling Outcome: Ongoing (Interventions Implemented as Appropriate) 09/12/17212909/13/176 09/13/17106 Daily Care Interventions Self-Care Promotion -- -- independence encouraged;BADL personal objects within reach;BADL personal routines maintained Sosa Fall Risk History of Falling 0 -- -- Secondary Diagnosis 15 -- -- Ambulatory Aids 15 -- -- Intravenous Therapy/Heparin/Saline Lock 20 -- -- Gait/Transferring 10 -- -- Mental Status 0 -- -- Score 60 -- -- OTHER Sosa Fall Risk Med -- -- Restraint Interventions Safety Promotion/Fall Prevention -- safety round/check completed -- Positioning Body Position independent -- -- Activity Activity Type activity adjusted per tolerance -- -- Activity Assistance Provided assistance, 1 person -- -- Goal: Infection Control Outcome: Ongoing (Interventions Implemented as Appropriate) 09/12/172129 Safety Interventions Isolation Precautions standard precautions maintained Infection Prevention environmental surveillance performed;equipment surfaces disinfected;single patient room provided;rest/sleep promoted Coping Strategies Supportive Measures active listening utilized;decision-making supported;positive reinforcement provided;problem solving facilitated;relaxation techniques promoted;self-care encouraged;self-reflectionpromoted;self-responsibility promoted;verbalization of feelings encouraged Goal: Discharge Needs Assessment Outcome: Ongoing (Interventions Implemented as Appropriate) 09/13/17106 Discharge Needs Assessment Concerns To Be Addressed no discharge needs identified Readmission Within The Last 30 Days no previous admission in last 30 days Equipment Needed After Discharge none Discharge Disposition still a patient Current Health Anticipated Changes Related to Illness none Activity/Self Care Review of Systems Equipment Currently Used at Home none Living Environment Transportation Available family or friend will provide * Initial Assessments - Vaishali Escobar RN - 09/12/2017 4:11 PM EDT Office of Care Management Initial Assessment Vaishali Escobar RN reviewed record and discussed patient with Care Team. Source of Information: daughter Introduced self/reviewed role; services accepted. Reason for Hospitalization: chest pain No past medical history on file. Hospitalizations Within the Past 30 Days: no Anticipated Length Of Stay (If known): 4-7 days Current Decision-Making Capacity: able to make decisions Advance Care Planning: on chart Current Coping/Education/Information Needs: updated by team Current Functional Ability: needs minimal assist Functional Status Prior to Admission: independent Home Environment: lives with niece and daughter, no stairs Social & Family Supports/Community Resources: family close and supportive Behavioral Health History: none Substance Use/Abuse: Social History Substance Use Topics ??? Smoking status: Former Smoker ??? Smokeless tobacco: Never Used ??? Alcohol use No Other Pertinent/Service Specific Information: none Health/Prescription Coverage: Primary Insurance: MEDICARE Secondary Insurance: [employer] Prescription Coverage: yes Preferred Pharmacy: [facility] Primary Care Provider: Devorah Epstein MD [phone] Patient/Caregiver Goals of Treatment: discharge to home with VNA Potential Needs for Transition of Care: Rehab/SNF: not anticipated Home Health: need to obtain choice DME: has a cane Dialysis: no Community Resources: none involved Transportation: daughter Anticipated Barriers to Discharge/Special Considerations: none Assessment: patient S/P CABG X2, post op day 1 up in chair Plan: home with VNA A member of the Care Management team will continue to monitor progress, follow for continuity of care and assist with transition of care planning. Vaishali Escobar RN Pager: [phone] * Plan of Care - Lenora Ibrahim RN - 09/12/2017 3:37 PM EDT Problem: Patient Care Overview Goal: Plan of Care Review Outcome: Ongoing (Interventions Implemented as Appropriate) 09/12/17 0435 09/12/17 1400 Coping/Psychosocial Plan Of Care Reviewed With -- spouse Plan of Care Review Progress improving -- OUTCOME EVALUATION NOTE: OUTCOME SUMMARY: S/P CABG x2- POD#1. Incisional discomfort tolerable with tylenol. Up ambulating inthe hallway with rolling oxygen tank- 2l with sats in the mid 90's. Using IS independently. Madison cath inplace- draining dark urine- no clots noted. PLAN MOVING FORWARD: Up OOB for all meals/3 walks daily/madison cath d/c POD #2. Close monitoring of I&O's INDIVIDUALIZED FALL PREVENTION INTERVENTIONS: Patient-specific fall risk factors per assessment: [current deficits]: New surroundings/recent OR Assistance [level of assistance required for transfers and ambulation]: SBA x1 Supervision [direct monitoring required during toileting and ADLs]: Call echeverria within reachSurveillance [continuous indirect monitoring]: hourly rounds Patient-specific fall prevention interventions for sensory deficits provided, if applicable: CPG GOAL OUTCOME EVALUATION: Goal: Fall Prevention-Safe Patient Handling Outcome: Ongoing (Interventions Implemented as Appropriate) 09/12/17 1000 09/12/17 1200 09/12/17 1400 Sosa Fall Risk History of Falling -- -- 0 Secondary Diagnosis -- -- 15 Ambulatory Aids -- -- 15 Intravenous Therapy/Heparin/Saline Lock -- -- 20 Gait/Transferring -- -- 10 Mental Status -- -- 0 Score -- -- 60 OTHER Sosa Fall Risk -- -- Med Restraint Interventions Safety Promotion/Fall Prevention -- -- activity supervised Positioning Body Position supine -- -- Activity Activity Type -- bedrest -- Activity Assistance Provided assistance, 2 people -- -- Goal: Infection Control Outcome: Ongoing (Interventions Implemented as Appropriate) 09/12/17 1400 Safety Interventions Isolation Precautions standard precautions maintained Infection Prevention environmental surveillance performed Coping Strategies Supportive Measures active listening utilized * Plan of Care - Montse Maldonado RN - 09/12/2017 4:43 AM EDT Problem: Cardiac Surgery (Adult) Goal: Signs and Symptoms of Listed Potential Problems Will be Absent, Minimized or Managed (CardiacSurgery) Signs and symptoms of listed potential problems will be absent, minimized or managed by discharge/transition of care (reference Cardiac Surgery (Adult) CPG). Outcome: Ongoing (Interventions Implemented as Appropriate) 09/12/17 0435 Cardiac Surgery Problems Assessed (Cardiac Surgery) all Problems Present (Cardiac Surgery) none Problem: Patient Care Overview Goal: Plan of Care Review Outcome: Ongoing (Interventions Implemented as Appropriate) 09/12/17 0435 Coping/Psychosocial Plan Of Care Reviewed With patient Plan of Care Review Progress improving OUTCOME EVALUATION NOTE: OUTCOME SUMMARY: As per flow sheets and assessments. Pacer in VVI at 50. Intrinsic rate mostly 60's 70's 1st degree AVB. Occasional paced beats noted. Nitro required to maintain SBP <130. Denies c/o pain. C/o nausea on one occasion. No emesis noted. Zofran with good effect. Urine is dark red. Becoming oliguric more recently with 50cc out in the last 2 hours. PLAN MOVING FORWARD: Monitor, assessments, intervene prn. Rehab as tolerated. Continue to monitor urine output. 0630: No urine output [id number]. Bladder scan yield 64cc. C/o need to void. Madison balloon deflated,re inflated. Leaked urine around (dessert plate size area). Relief of symptoms. * Plan of Care - Christel Moreira RN - 09/11/2017 10:42 PM EDT Problem: Cardiac Surgery (Adult) Goal: Signs and Symptoms of Listed Potential Problems Will be Absent, Minimized or Managed (CardiacSurgery) Signs and symptoms of listed potential problems will be absent, minimized or managed by discharge/transition of care (reference Cardiac Surgery (Adult) CPG). Outcome: Ongoing (Interventions Implemented as Appropriate) . Comments: OUTCOME EVALUATION NOTE: OUTCOME SUMMARY: Post op CABGx2 arrived to [facility] at 1100. Total chest tube output 250mL. Cardiovascular: 100% AAI paced at 80 b/min, pilot station rhythm is sinus jasmeet with pauses 50-70. CI 2.6,no inotropes, PA out at 1930. BPsys 100-120 maintained with intermittent NorEpi or Nitroglycerin. Respiratory: ETT advanced post CXR, extubated at 1430 with PEEP 8. Home BiPap nasal pillows while sleeping, SPO2 95-98% with 3 L/min O2. Strong cough. : Traumatic madison insertion pre-op, mu blood in urine, no discomfort. GI: Persistant nausea not resolved with 8 mg ondansetron. Pain: Fentanyl paused at 1900 with mild relief of nausea. Pain is 0/10 at rest, 4-5/10 while coughing. Skin: dressings dry and intact. Large family supportive at bedside. PLAN MOVING FORWARD: Patient reports unprovoked episodes of transient lightheadedness more frequently in recent months. Continue on pathway, ambulate and advance diet as tolerated. * Op Note - Pablo Govea MD - 09/11/2017 11:01 AM EDT 09/11/2017 Keegan Cabrera 1940 [id number] Preoperative Diagnosis: Coronary artery disease Stable Angina Postoperative Diagnosis: Coronary artery diseaseStable Angina Procedure: CABG times 2: ALFREDO to LAD, SVG to om. Endoscopic vein harvest Surgeon: Pablo Govea M.D. Customer Sales Advisor: ashwin flores Anesthesia: General endotracheal anesthesia Drains: Two mediastinal tubes Pacing Wires: Two A-wires, two V-wires. EBL: 200 mL Findings: good targets, good conduit, low nl function Procedure: The patient was taken to the Operating Room and had a radial A-line placed. All the proper lines and monitors were placed by Anesthesia. The patient was then prepped and draped in the normal sterile fashion. The right leg was used to harvest the greater saphenous vein using an endoscopic technique. A vertical incision was made on the medial aspect of the knee. The Lab4UView XB7 system was used to dissect out the vein anterior and posteriorly. All the side branches were cauterized. The vein was ligated distally and proximally. It was removed through the incision at the knee. The vein was flushed with heparinized saline in a reverse direction. All the side branches were clipped. The vein was untwistedand striped with a sterile pen. The leg had a MARCIAL drain placed in it. It was irrigated out with antibiotic solution and closed immediately. The chest was opened along the midline. Cautery was used on the sternal edges and bone wax was lightly applied to the divided marrow of the sternum. The left daryl-sternum was elevated. The pleura were taken down, and the mammary artery was dissected free clipping all side branches. Heparin was given. Several minutes later the distal end of the mammary was clipped and tied on the chest wall, and the bleeding end had a bulldog placed across it. It was prepared for bypass by spatulating it open, injecting it with verapamil, and rolling it up into a nitroglycerin-soaked sponge. The MIAH had excellent flow. The Rultract was removed. Two antibiotic-soaked towels were used to bumper the sternum. The sternal retractor was used to open the sternum. The overlying pericardium was opened in an inverse-T fashion and hung to the edge of the sternal retractor. Full-dose heparin was given. The aorta was cannulated. The right atrium had the venous cannula placed through the IVC. A retrograde was placed through the right atrium into the coronary sinus. The antegrade was place mid ascending aorta which also doubled as the root vent. With the ACT above 450, we went on bypass. The targets were inspected. The aorta was crossclamped and the heart was arrested with cold blood cardioplegia antegrade and retrograde. We drifted to 32 degrees Celsius. The bypasses were as follows: The om target was identified and opened and in an end to side fashion the SVG was anastomosed with a running 7.0 prolene. Cardiopelegia was given down the graft and there were no leaks. The heart wasfilled and the graft was measured for length and trimmed. A punch was made in the aorta and a proximal anastomosis was created with a 6-0. A washer was used to identify the proximal. The miah was taken out of the left chest and a slit was created in the L side of the pericardium making sure to identify the L phrenic nerve. The miah was anastomosed to the LAD with a running 8-0 prolene. The bulldog was removed to test the graft then replaced. At this point, hotshots were given. The heart began beating in a sinus rhythm. The crossclamp was removed. The grafts were inspected. The heart was allowed to re-perfuse. The retrograde was removed and oversewn; so was the antegrade. An angled chest tube was placed behind the heart. Both chests were suctioned out, and the lungs were re-inflated. After a period of rewarming and allowing the heart to re-perfuse, we from bypass. The venous cannula was removed and the pursestring was tieddown and oversewn. Protamine was given. The aortic cannula was removed. Both pursestrings were tieddown and oversewn. We had no further bleeding. A straight chest tube was placed in front of the heart. Vanco paste was applied to the sternum. Interrupted steel cables were used to close the chest, several layers of Vicryl, and a 4-0 Monocryl were used to close the overlying soft tissue. Glue and clean dry sterile dressings were applied. The patient was transported to the [facility] on levo. All counts were correct. * OR Attestation - Pablo Govea MD - 09/11/2017 10:55 AM EDT Attestation: Case Date: 09/11/2017 I performed this procedure without the involvement of a resident. Pablo Govea MD 09/11/2017 * Brief Op Note - Pablo Govea MD - 09/11/2017 10:54 AM EDT Brief Operative Note Patient Name: Keegan Cabrera : [id number] MR#: [id number] Case Date: 09/11/2017 Surgeon: Surgeon(s) and Role: * Pablo Govea MD - Primary * David Green PA - Physician Customer Sales Advisor Preoperative diagnosis: cad Postoperative diagnosis: cad Procedure: Cabgx2: alfredo to lad, svg to om Endo vein harvest Anesthesia: General Findings: good targets and conduit, low normal ef Complications: none Estimated Blood Loss: * No values recorded between 09/11/2017 8:16 AM and 09/11/2017 10:43 AM * Specimens removed during surgery: None Fluids: Intraprocedure Crystalloid Total None PRBCs: none (See Anesthesia Record/Report for Other Blood Products) Urine Output: 75 mL Drains: 2 med tubes Disposition: taken directly to the ICU, intubated and in a critical condition. Condition: doing well without problems (Please see the Surgical Encounter Summary for any Implant and Specimen details pertinent to this patient.) Infection Bundle used? No documented in this encounter Plan of Treatment Upcoming Encounters Date Type Department Care Team (Late st Contact Info) Description 03/28/2024 10:00 AM EDT Hospital Encounter [place] [id number] Arrived Scheduled Orders Name Type Priority Associated Diagnoses Orde r Schedule EKG 12 Lead ECG Routine S/P CABG x 2 Ordered: 09/15/2017 Scheduled Referrals Name Type Priority Associated Diagnoses Orde r Schedule Referral to Cardiac Rehab Outpatient Referral Routine S/P CABG x 2 Ordered: 09/15/2017 documented as of this encounter Procedures Procedure Name Priority Date/Time Associated Diagnosis Comments LAB SCAN 09/18/2017 12:00 AM EDT MANAGER RELATIONSHIP SCAN 09/18/2017 12:00 AM EDT POTASSIUM Routine 09/15/2017 4:43 AM EDT XR CHEST PA AND LATERAL Routine 09/14/2017 9:08 AM EDT HEMOGRAM Routine 09/14/2017 4:15 AM EDT DIFFERENTIAL, AUTOMATED Routine 09/14/2017 4:15 AM EDT CBC (WITH DIFF) Routine 09/14/2017 4:15 AM EDT BASIC METABOLIC PANEL (NON-FASTING) Routine 09/14/2017 4:15 AM EDT POCT GLUCOSE Routine 09/13/2017 7:40 AM EDT POTASSIUM Routine 09/13/2017 3:38 AM EDT POCT GLUCOSE Routine 09/12/2017 8:54 PM EDT POCT GLUCOSE Routine 09/12/2017 4:15 PM EDT POCT GLUCOSE Routine 09/12/2017 11:39 AM EDT POCT GLUCOSE Routine 09/12/2017 10:05 AM EDT POCT GLUCOSE Routine 09/12/2017 7:47 AM EDT POCT GLUCOSE Routine 09/12/2017 4:25 AM EDT HEMOGRAM Routine 09/12/2017 4:25 AM EDT DIFFERENTIAL, AUTOMATED Routine 09/12/2017 4:25 AM EDT CARDIAC ENZYMES ([facility]) Routine 09/12/2017 4:25 AM EDT CREATININE Routine 09/12/2017 4:25 AM EDT CBC (WITH DIFF) Routine 09/12/2017 4:25 AM EDT BUN Routine 09/12/2017 4:25 AM EDT POTASSIUM Routine 09/12/2017 4:25 AM EDT GLUCOSE, FASTING Routine 09/12/2017 4:25 AM EDT ELECTROLYTES PANEL Routine 09/12/2017 4: 25 AM EDT POCT GLUCOSE Routine 09/12/2017 2:16 AM EDT POCT GLUCOSE Routine 09/11/2017 11:31 PM EDT POCT GLUCOSE Routine 09/11/2017 7:05 PM EDT POCT GLUCOSE Routine 09/11/2017 5:58 PM EDT HEMOGLOBIN Routine 09/11/2017 5:00 PM EDT POTASSIUM Routine 09/11/2017 5:00 PM EDT EXTUBATE Routine 09/11/2017 2:27 PM EDT BLOOD GAS 2 ARTERIAL Routine 09/11/2017 2:09 PM EDT POCT GLUCOSE Routine 09/11/2017 1:33 PM EDT PREPARE ALBUMIN 5% IN 250 ML Routine 09/11/2017 11:56 AM EDT BLOOD GAS 2 ARTERIAL Routine 09/11/2017 11:37 AM EDT XR CHEST ONE VIEW STAT 09/11/2017 11: 35 AM EDT EKG 12-LEAD STAT 09/11/2017 11:24 AM EDT S/P CABG x 2 HEMOGRAM STAT 09/11/2017 10:15 AM EDT APTT STAT 09/11/2017 10:15 AM EDT THROMBIN TIME STAT 09/11/2017 10:15 AM EDT PROTHROMBIN TIME STAT 09/11/2017 10:1 5 AM EDT FIBRINOGEN STAT 09/11/2017 10:15 AM EDT BLOOD GAS 2 ARTERIAL Routine 09/11/2017 10:13 AM EDT BLOOD GAS 2 ARTERIAL Routine 09/11/2017 9:36 AM EDT HEMOGLOBIN AND HEMATOCRIT, BLOOD STAT 09/11/2017 9:30 AM EDT FIBRINOGEN STAT 09/11/2017 9:30 AM EDT PLATELET COUNT STAT 09/11/2017 9:30 AM EDT BLOOD GAS 2 ARTERIAL Routine 09/11/2017 9:15 AM EDT BLOOD GAS 2 ARTERIAL Routine 09/11/2017 8:12 AM EDT ENDOSCOPIC HARVEST VEIN(S) FOR CABG (WRVU 0.31) 09/11/2017 7:24 AM EDT 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 Electronically signed by: PRUDENCE [facility], at10/17/2017 3:01 PM F[place] Smith DIE ENGRAVER IMG DX ORDERABLES * SCAN DOC: LAB (09/18/2017 12:00 AM EDT) Narrative 09/18/2017 12:00 AM EDT Ordered by an unspecified provider. Scanning Provider MEDIA MGR SCAN EXT O RDR/RSLT * SCAN DOC: MANAGER RELATIONSHIP (09/18/2017 12:00 AM EDT) Anatomical Region Laterality Modality Other Narrative 09/18/2017 12:00 AM EDT Ordered by an unspecified provider. Scanning Provider MEDIA MGR SCAN EXT O RDR/RSLT * Potassium (09/15/2017 4:43 AM EDT) Potassium 3.5 3.5 - 5.0 mmol/L [facility] Comment: Please note: ??Patients with WBC >100,000 may have falsely elevated Potassium levels. ??For accurate Potassium quantification in these patients send serum separator tube (gold top) for subsequent determinations. ??Contact the Clinical Chemistry Laboratory if there are any questions. Blood specimen (specimen) 09/15/2017 4:43 AM EDT 09/15/2017 5:13 AM EDT Narrative Resulting Agency Comment Spec In Lab Analia Shannon APRN CHEMISTRY ORDERABL ES [facility] [place] [address] * XR Chest PA & Lateral (Generic) (09/14/2017 9:08 AM EDT) Anatomical Region Laterality Modality Chest N/A Digital Radiogra phy Impressions 09/14/2017 10:34 AM EDT 1. ??Interval removal of lines and tubes. 2. ??Improved aeration of the lungs. 3. ??Persistent trace right and small left pleural effusions. I have personally reviewed the image(s) and the residents interpretation and agree with the findings, Tommy Ba at 09/14/2017 10:34 AM Narrative 09/14/2017 10:34 AM EDT EXAMINATION: XR CHEST PA AND LATERAL (GENERIC) CLINICAL HISTORY: s/p CABG TECHNIQUE: Standing PA and lateral chest radiographs COMPARISON: None FINDINGS: Interval removal of right IJ PA catheter, endotracheal tube, and enteric tube. Improved aeration of the lungs, due to greater degree of inspiration. Persistent trace right and small left pleural effusions and associated atelectasis. No pneumothorax. The cardiomediastinal silhouette, ha, and pulmonary vascular markings are within normal limits. Again noted are sternotomy wires and multiple mediastinal surgical clips. Procedure Note Tommy Ba MD - 09/14/2017 EXAMINATION: XR CHEST PA AND LATERAL (GENERIC) CLINICAL HISTORY: s/p CABG TECHNIQUE: Standing PA and lateral chest radiographs COMPARISON: None FINDINGS: Interval removal of right IJ PA catheter, endotracheal tube, and enterictube. Improved aeration of the lungs, due to greater degree of inspiration.Persistent trace right and small left pleural effusions and associated atelectasis.No pneumothorax. The cardiomediastinal silhouette, ha, and pulmonaryvascular markings are within normal limits. Again noted are sternotomy wires andmultiple mediastinal surgical clips. IMPRESSION 1. Interval removal of lines and tubes. 2. Improved aeration of the lungs. 3. Persistent trace right and small left pleural effusions. I have personally reviewed the image(s) and the residents interpretationand agree with the findings, Tommy Ba at 09/14/2017 10:34 AM Analia Shannon APRN IMG DX ORDERABLES * (ABNORMAL) Differential, Automated (09/14/2017 4:15 AM EDT) Neutrophils % 73.5 % [facility] Neutr Abs (ANC) 4.13 1.70 - 6.10 x10(3)/[facility] Lymphocytes % 14.6 % [facility] Lymphocytes Abs 0.8(L) 0.9 - 3.2 x10(3)/[facility] Monocytes % 9.8 % [facility] Monocyte Abs 0.6 0.3 - 0.9 x10(3)/[facility] Eosinophils % 1.2 % [facility] Eosinophils Abs 0.1 0.0 - 0.4 x10(3)/[facility] Basophils % 0.2 % [facility] Basophils Abs 0.0 0.0 - 0.1 x10(3)/[facility] Immature Gran % 0.70 % [facility] Comment: Immature granulocytes(IG's)percentage and absolute count will include metamyelocytes, myelocytes, and promyelocytes. Blood smears from CBCs yielding IG's will be scanned manually for concordance. If this scan disagrees with the automated IG or if promyelocytes are noted, a manual differential will be performed. Steph Gran Abs 0.04 0.00 - 0.04 x10(3)/[facility] Blood specimen (specimen) 09/14/2017 4:15 AM EDT 09/14/2017 4:21 AM EDT Narrative Resulting Agency Comment Spec In Lab Analia Shannon APRN HEMATOLOGY ORDERAB LES [facility] [place] [address] * (ABNORMAL) Hemogram (09/14/2017 4:15 AM EDT) WBC 5.6 4.0 - 9.5 x10(3)/[facility] RBC 3.49(L) 4.58 - 5.54 x10(6)/[facility] Hemoglobin 10.5(L) 13.7 - 16.5 gm/dL [facility] Hematocrit 31.2(L) 40.5 - 48.5 % [facility] MCV 89.4 82.9 - 93.1 [facility] MCH 30.1 27.5 - 32.[address] [facility] MCHC 33.7 32.0 - 35.7 gm/dL [facility] Platelets 114(L) 145 - 357 x10(3)/[facility] RDWSD 43.9 36.0 - 45.0 [facility] RDWCV 13.4 11.4 - 13.8 % [facility] MPV 9.6 7.6 - 12.9 [facility] nRBC % Auto 0.0 % [facility] nRBC Abs Auto 0.000 0.000 - 0.000 x10(3)/[facility] Blood specimen (specimen) 09/14/2017 4:15 AM EDT 09/14/2017 4:21 AM EDT Narrative Resulting Agency Comment Spec In Lab Analia Shannon APRN HEMATOLOGY ORDERAB LES [facility] [place] [address] * (ABNORMAL) Basic Metabolic Panel (non-fasting) (09/14/2017 4:15 AM EDT) Glucose Lvl 157 65 - 199 mg/dL [facility] Comment:Diabetes: >=200 mg/d L plus symptoms BUN 27(H) 10 - 20 mg/dL [facility] Creatinine 1.19 0.80 - 1.50 mg/dL [facility] Sodium 138 135 - 145 mmol/L [facility] Potassium 3.4(L) 3.5 - 5.0 mmol/L [facility] Comment: Please note: ??Patients with WBC >100,000 may have falsely elevated Potassium levels. ??For accurate Potassium quantification in these patients send serum separator tube (gold top) for subsequent determinations. ??Contact the Clinical Chemistry Laboratory if there are any questions. Chloride 102 98 - 107 mmol/L [facility] CO2 25 22 - 31 mmol/L [facility] Anion Gap 11 5 - 15 mmol/L [facility] Calcium 8.6 8.5 - 10.5 mg/dL [facility] Estimated GFR 59(L) >=60 [facility] Comment: The reported eGFR should be multiplied by 1.2 for patients. The MDRD is not an appropriate measure of renal function for patients with body mass extremes or in patients with acute kidney failure. http://[employer] [place] - [employer]/DHnkdep http://[employer] [place] - [employer]/DHMCnkf Blood specimen (specimen) 09/14/2017 4:15 AM EDT 09/14/2017 4:21 AM EDT Narrative Resulting Agency Comment Spec In Lab Analia Shannon APRN CHEMISTRY ORDERABL ES [facility] [place] [address] * POCT Glucose (09/13/2017 7:40 AM EDT) POC Glucose 144 65 - 199 mg/dL [facility] Comment: Supplemental ranges: <140 mg/dL before meals <180 mg/dL all other times of the day Blood specimen (specimen) 09/13/2017 7:40 AM EDT 09/13/2017 7:40 AM EDT Pablo Govea MD POINT OF CARE TEST ORDERABLES [facility] [place] [address] * Potassium (09/13/2017 3:38 AM EDT) Potassium 4.1 3.5 - 5.0 mmol/L [facility] Comment: Please note: ??Patients with WBC >100,000 may have falsely elevated Potassium levels. ??For accurate Potassium quantification in these patients send serum separator tube (gold top) for subsequent determinations. ??Contact the Clinical Chemistry Laboratory if there are any questions. Blood specimen (specimen) 09/13/2017 3:38 AM EDT 09/13/2017 4:00 AM EDT Narrative Resulting Agency Comment Spec In Lab Analia Shannon APRN CHEMISTRY ORDERABL ES Performing Organization Address City/[facility]/ZIP Co de Phone Number [facility] [place] [address] * POCT Glucose (09/12/2017 8:54 PM EDT) POC Glucose 141 65 - 199 mg/dL [facility] Comment: Supplemental ranges: <140 mg/dL before meals <180 mg/dL all other times of the day Blood specimen (specimen) 09/12/2017 8:54 PM EDT 09/12/2017 8:54 PM EDT Pablo Govea MD POINT OF CARE TEST ORDERABLES Performing Organization Address [facility] Co de Phone Number [facility] [place] [address] * POCT Glucose (09/12/2017 4:15 PM EDT) POC Glucose 139 65 - 199 mg/dL [facility] Comment: Supplemental ranges: <140 mg/dL before meals <180 mg/dL all other times of the day Blood specimen (specimen) 09/12/2017 4:15 PM EDT 09/12/2017 4:15 PM EDT Pablo Govea MD POINT OF CARE TEST ORDERABLES Performing Organization Address City/[facility]/ZIP Co de Phone Number [facility] [place] [address] * POCT Glucose (09/12/2017 11:39 AM EDT) POC Glucose 122 65 - 199 mg/dL [facility] Comment: Supplemental ranges: <140 mg/dL before meals <180 mg/dL all other times of the day Blood specimen (specimen) 09/12/2017 11:39 AM EDT 09/12/2017 11:39 AM EDT Pablo Govea MD POINT OF CARE TEST ORDERABLES [facility] [place] [address] * POCT Glucose (09/12/2017 10:05 AM EDT) POC Glucose 135 65 - 199 mg/dL [facility] Comment: Supplemental ranges: <140 mg/dL before meals <180 mg/dL all other times of the day Blood specimen (specimen) 09/12/2017 10:05 AM EDT 09/12/2017 10:05 AM EDT Pablo Govea MD POINT OF CARE TEST ORDERABLES Performing Organization Address City/[facility] Co de Phone Number [facility] [place] [address] * POCT Glucose (09/12/2017 7:47 AM EDT) POC Glucose 143 65 - 199 mg/dL [facility] Comment: Supplemental ranges: <140 mg/dL before meals <180 mg/dL all other times of the day Blood specimen (specimen) 09/12/2017 7:47 AM EDT 09/12/2017 7:47 AM EDT Pablo Govea MD POINT OF CARE TEST ORDERABLES Performing Organization Address City/[facility] Co de Phone Number [facility] [place] [address] * (ABNORMAL) Differential, Automated (09/12/2017 4:25 AM EDT) Neutrophils % 82.3 % [facility] Neutr Abs (ANC) 4.63 1.70 - 6.10 x10(3)/[facility] Lymphocytes % 7.3 % [facility] Lymphocytes Abs 0.4(L) 0.9 - 3.2 x10(3)/[facility] Monocytes % 9.8 % [facility] Monocyte Abs 0.6 0.3 - 0.9 x10(3)/[facility] Eosinophils % 0.0 % [facility] Eosinophils Abs 0.0 0.0 - 0.4 x10(3)/[facility] Basophils % 0.2 % [facility] Basophils Abs 0.0 0.0 - 0.1 x10(3)/[facility] Immature Gran % 0.40 % [facility] Comment: Immature granulocytes(IG's)percentage and absolute count will include metamyelocytes, myelocytes, and promyelocytes. Blood smears from CBCs yielding IG's will be scanned manually for concordance. If this scan disagrees with the automated IG or if promyelocytes are noted, a manual differential will be performed. Steph Gran Abs 0.02 0.00 - 0.04 x10(3)/[facility] Blood specimen (specimen) 09/12/2017 4:25 AM EDT 09/12/2017 4:39 AM EDT Narrative Resulting Agency Comment Spec In Lab David YE HEMATOLOGY ORDER KARENA [facility] [place] [address] * (ABNORMAL) Hemogram (09/12/2017 4:25 AM EDT) Pathologist [facility] WBC 5.6 4.0 - 9.5 x10(3)/[facility] RBC 3.56(L) 4.58 - 5.54 x10(6)/[facility] Hemoglobin 10.7(L) 13.7 - 16.5 gm/dL [facility] Hematocrit 31.8(L) 40.5 - 48.5 % [facility] MCV 89.3 82.9 - 93.1 [facility] MCH 30.1 27.5 - 32.[address] [facility] MCHC 33.6 32.0 - 35.7 gm/dL [facility] Platelets 113(L) 145 - 357 x10(3)/[facility] RDWSD 44.1 36.0 - 45.0 [facility] RDWCV 13.5 11.4 - 13.8 % [facility] MPV 9.7 7.6 - 12.9 [facility] nRBC % Auto 0.0 % [facility] nRBC Abs Auto 0.000 0.000 - 0.000 x10(3)/[facility] Blood specimen (specimen) 09/12/2017 4:25 AM EDT 09/12/2017 4:39 AM EDT Narrative Resulting Agency Comment Spec In Lab David YE HEMATOLOGY ORDER KARENA Performing Organization Address City/[facility]/ZIP Co de Phone Number [facility] [place] [address] * POCT Glucose (09/12/2017 4:25 AM EDT) POC Glucose 155 65 - 199 mg/dL [facility] Comment: Supplemental ranges: <140 mg/dL before meals <180 mg/dL all other times of the day Blood specimen (specimen) 09/12/2017 4:25 AM EDT 09/12/2017 4:25 AM EDT Pablo Govea MD POINT OF CARE TEST ORDERABLES [facility] [place] [address] * (ABNORMAL) Electrolytes panel (09/12/2017 4:25 AM EDT) Pathologist [facility] Sodium 139 135 - 145 mmol/L [facility] Potassium 4.0 3.5 - 5.0 mmol/L [facility] Comment: Please note: ??Patients with WBC >100,000 may have falsely elevated Potassium levels. ??For accurate Potassium quantification in these patients send serum separator tube (gold top) for subsequent determinations. ??Contact the Clinical Chemistry Laboratory if there are any questions. Chloride 107 98 - 107 mmol/L [facility] CO2 21(L) 22 - 31 mmol/L [facility] Anion Gap 11 5 - 15 mmol/L [facility] Blood specimen (specimen) 09/12/2017 4:25 AM EDT 09/12/2017 4:40 AM EDT Narrative Resulting Agency Comment Spec In Lab Pablo Govea MD CHEMISTRY ORDERABLE S [facility] [place] [address] * (ABNORMAL) Cardiac Enzymes (LEB/CGP) (09/12/2017 4:25 AM EDT) [facility] Troponin-T 0.13(H) 0.00 - 0.00 ng/mL [facility] Comment: The 99th percentile for Troponin T is less than 0.01 ng/mL, any detectable cTnT concentration using this assay should be considered elevated. According to the third universal definition of myocardial infarction the following criteria with a clinical presentation consistent with acute myocardial ischemia meets the diagnosis for a myocardial infarction (UT). Detection of a rise and/or fall of cTnT, with at least one value greater than the 99th percentile (> or = 0.01) and with at least one of the following ?? Symptoms of ischemia ?? New or presumed new significant VC-jrouilj-E wave (ST-T) changes or new left bundle branch block (LBBB) ?? Development of pathologic Q waves in the ECG ?? Imaging evidence of new loss of viable myocardium or new regional wall motion abnormality ?? Identification of an intracoronary thrombus by angiography or autopsy Samples for cTnT testing should be obtained serially upon first assessment and again 3 to 6 hours later. If the clinical suspicion is high and previous samples have been negative an additional sample may be indicated. Reference: Third [place] Definition of Myocardial Infarction. Journal of the [place] [employer] 2012;60:1581-98 CK, Total 290(H) 0 - 200 unit/L [facility] Blood specimen (specimen) 09/12/2017 4:25 AM EDT 09/12/2017 4:39 AM EDT Narrative Resulting Agency Comment Spec In Lab Pablo Govea MD CHEMISTRY ORDERABLE S Performing Organization Address [facility] de Phone Number [facility] [place] [address] * Potassium (09/12/2017 4:25 AM EDT) Potassium 4.0 3.5 - 5.0 mmol/L [facility] Comment: Please note: ??Patients with WBC >100,000 may have falsely elevated Potassium levels. ??For accurate Potassium quantification in these patients send serum separator tube (gold top) for subsequent determinations. ??Contact the Clinical Chemistry Laboratory if there are any questions. Blood specimen (specimen) 09/12/2017 4:25 AM EDT 09/12/2017 4:39 AM EDT Narrative Resulting Agency Comment Spec In Lab Pablo Govea MD CHEMISTRY ORDERABLE S Performing Organization Address [facility] de Phone Number [facility] [place] [address] * (ABNORMAL) Glucose, fasting (09/12/2017 4:25 AM EDT) Glucose Fasting 155(H) 65 - 99 mg/dL [facility] Comment: ?Fasting* Glucose Interpretive Criteria [...] of Diabetes Mellitus, Position Statement from the [place] [employer]. ??Diabetes Care, Volume 33, Supplement 1, Jun 2009 Blood specimen (specimen) 09/12/2017 4:25 AM EDT 09/12/2017 4:39 AM EDT Narrative Resulting Agency Comment Spec In Lab Pablo Govea MD CHEMISTRY ORDERABLE S Performing Organization Address [facility] de Phone Number [facility] [place] [address] * Creatinine (09/12/2017 4:25 AM EDT) Creatinine 1.13 0.80 - 1.50 mg/dL [facility] Estimated GFR >60 >=60 [facility] Comment: The reported eGFR should be multiplied by 1.2 for patients. The MDRD is not an appropriate measure of renal function for patients with body mass extremes or in patients with acute kidney failure. http://[employer]/DHnkdep http://[employer]/DHMCnkf Blood specimen (specimen) 09/12/2017 4:25 AM EDT 09/12/2017 4:39 AM EDT Narrative Resulting Agency Comment Spec In Lab Pablo Govea MD CHEMISTRY ORDERABLE S Performing Organization Address [facility] de Phone Number [facility] [place] [address] * (ABNORMAL) BUN (09/12/2017 4:25 AM EDT) BUN 21(H) 10 - 20 mg/dL [facility] Blood specimen (specimen) 09/12/2017 4:25 AM EDT 09/12/2017 4:39 AM EDT Narrative Resulting Agency Comment Spec In Lab Pablo Govea MD CHEMISTRY ORDERABLE S Performing Organization Address City/[facility]/ZIP Co de Phone Number [facility] [place] [address] * POCT Glucose (09/12/2017 2:16 AM EDT) POC Glucose 139 65 - 199 mg/dL [facility] Comment: Supplemental ranges: <140 mg/dL before meals <180 mg/dL all other times of the day Blood specimen (specimen) 09/12/2017 2:16 AM EDT 09/12/2017 2:16 AM EDT Pablo Govea MD POINT OF CARE TEST ORDERABLES Performing Organization Address [facility]/ZIP Co de Phone Number [facility] [place] [address] * POCT Glucose (09/11/2017 11:31 PM EDT) POC Glucose 156 65 - 199 mg/dL [facility] Comment: Supplemental ranges: <140 mg/dL before meals <180 mg/dL all other times of the day Blood specimen (specimen) 09/11/2017 11:31 PM EDT 09/11/2017 11:31 PM EDT Pablo Govea MD POINT OF CARE TEST ORDERABLES Performing Organization Address City/[facility]/ZIP Co de Phone Number [facility] [place] [address] * POCT Glucose (09/11/2017 7:05 PM EDT) POC Glucose 145 65 - 199 mg/dL [facility] Comment: Supplemental ranges: <140 mg/dL before meals <180 mg/dL all other times of the day Blood specimen (specimen) 09/11/2017 7:05 PM EDT 09/11/2017 7:05 PM EDT Pablo Govea MD POINT OF CARE TEST ORDERABLES Performing Organization Address [facility]/ZIP Co de Phone Number [facility] [place] [address] * POCT Glucose (09/11/2017 5:58 PM EDT) POC Glucose 157 65 - 199 mg/dL [facility] Comment: Supplemental ranges: <140 mg/dL before meals <180 mg/dL all other times of the day Blood specimen (specimen) 09/11/2017 5:58 PM EDT 09/11/2017 5:58 PM EDT Pablo Govea MD POINT OF CARE TEST ORDERABLES Performing Organization Address [facility] Co de Phone Number [facility] [place] [address] * (ABNORMAL) Hemoglobin (09/11/2017 5:00 PM EDT) Hemoglobin 11.6(L) 13.7 - 16.5 gm/dL [facility] Blood specimen (specimen) 09/11/2017 5:00 PM EDT 09/11/2017 5:25 PM EDT Narrative Resulting Agency Comment Spec In Lab Pablo Govea MD HEMATOLOGY ORDERABL ES Performing Organization Address [facility] Co de Phone Number [facility] [place] [address] * Potassium (09/11/2017 5:00 PM EDT) Potassium 4.1 3.5 - 5.0 mmol/L [facility] Comment: Please note: ??Patients with WBC >100,000 may have falsely elevated Potassium levels. ??For accurate Potassium quantification in these patients send serum separator tube (gold top) for subsequent determinations. ??Contact the Clinical Chemistry Laboratory if there are any questions. Blood specimen (specimen) 09/11/2017 5:00 PM EDT 09/11/2017 5:25 PM EDT Narrative Resulting Agency Comment Spec In Lab Pablo Govea MD CHEMISTRY ORDERABLE S [facility] [place] [address] * (ABNORMAL) BLOOD GAS 2 ARTERIAL (09/11/2017 2:09 PM EDT) pH Art 7.32(L) 7.35 - 7.45 [facility] pCO2 Art 39 35 - [address] [facility] pO2 Art 101 85 - [address] [facility] HCO3 Art 19.8(L) 20.0 - 26.0 mmol/L [facility] BE Art -6.2(L) -3.0 - 3.0 mmol/L [facility] Hgb Blood Gas 13.8 13.7 - 16.5 gm/dL [facility] O2HB Art 95.1 94.0 - 97.0 % [facility] COHB Art 0.9 % [facility] Comment: Nonsmokers: 0.5-1.5% COHB Smokers: Variable, but usually less than 10% Toxic: 20-30% COHB Lethal: Greater than 60% COHB METHB Art 0.7 <=1.5 % [facility] Na Whole Blood 138 135 - 145 mmol/L [facility] K Whole Blood 4.1 3.5 - 5.0 mmol/L [facility] Comment: Please note: Patients with WBC >100,000 may have falsely elevated Potassium levels. Contact the Clinical Chemistry Laboratory if there are any questions. ICa Whole Blood 1.23 1.15 - 1.33 mmol/L [facility] Comment: Note: ??Total bilirubin higher than 20 mg/dL may lead to falsely low ionized calcium. CL Whole Blood 111(H) 98 - 107 mmol/L [facility] Gluc Whole Bld 155 65 - 199 mg/dL [facility] Comment:Diabetes: >=200 mg/d L plus symptoms. Lactate WB 1.3 0.5 - 2.2 mmol/L [facility] FIO2 Art 40 % [facility] PF Ratio Art 252 [facility] Blood specimen (specimen) 09/11/2017 2:09 PM EDT 09/11/2017 2:09 PM EDT Pablo Govea MD CHEMISTRY ORDERABLE S Performing Organization Address [facility]/ZIP Co de Phone Number [facility] [place] [address] * POCT Glucose (09/11/2017 1:33 PM EDT) [facility] POC Glucose 138 65 - 199 mg/dL [facility] Comment: Supplemental ranges: <140 mg/dL before meals <180 mg/dL all other times of the day Blood specimen (specimen) 09/11/2017 1:33 PM EDT 09/11/2017 1:33 PM EDT Pablo Govea MD POINT OF CARE TEST ORDERABLES Performing Organization Address [facility] Co de Phone Number [facility] [place] [address] * Prepare Albumin 5% in 250 mL (09/11/2017 11:56 AM EDT) Pathologist [facility] Dispensed? Yes [facility] Blood specimen (specimen) No Charge / Unknown 09/11/2017 11:56 AM EDT 09/11/2017 11:58 AM EDT Narrative Resulting Agency Comment Spec In Lab David YE BLOOD BANK LAB O RDERABLES Performing Organization Address City/[facility]/ZIP Co de Phone Number [facility] [place] [address] * (ABNORMAL) BLOOD GAS 2 ARTERIAL (09/11/2017 11:37 AM EDT) pH Art 7.30(L) 7.35 - 7.45 [facility] pCO2 Art 45 35 - [address] [facility] pO2 Art 260(H) 85 - [address] [facility] HCO3 Art 21.7 20.0 - 26.0 mmol/L [facility] BE Art -4.7(L) -3.0 - 3.0 mmol/L [facility] Hgb Blood Gas 12.9(L) 13.7 - 16.5 gm/dL [facility] O2HB Art 97.7(H) 94.0 - 97.0 % [facility] COHB Art 0.4 % [facility] Comment: Nonsmokers: 0.5-1.5% COHB Smokers: Variable, but usually less than 10% Toxic: 20-30% COHB Lethal: Greater than 60% COHB METHB Art 0.8 <=1.5 % [facility] Na Whole Blood 138 135 - 145 mmol/L [facility] K Whole Blood 4.0 3.5 - 5.0 mmol/L [facility] Comment: Please note: Patients with WBC >100,000 may have falsely elevated Potassium levels. Contact the Clinical Chemistry Laboratory if there are any questions. ICa Whole Blood 1.21 1.15 - 1.33 mmol/L [facility] Comment: Note: ??Total bilirubin higher than 20 mg/dL may lead to falsely low ionized calcium. CL Whole Blood 112(H) 98 - 107 mmol/L [facility] Gluc Whole Bld 139 65 - 199 mg/dL [facility] Comment:Diabetes: >=200 mg/d L plus symptoms. Lactate WB 1.4 0.5 - 2.2 mmol/L [facility] FIO2 Art 100 % [facility] PF Ratio Art 260 [facility] Blood specimen (specimen) 09/11/2017 11:37 AM EDT 09/11/2017 11:37 AM EDT Pablo Govea MD CHEMISTRY ORDERABLE S [facility] [place] [address] * XR Chest PA or AP 1 view (09/11/2017 11:35 AM EDT) Anatomical Region Laterality Modality Chest N/A Digital Radiogra phy Impressions 09/11/2017 11:37 AM EDT Expected postoperative findings. No large pneumothorax. Narrative 09/11/2017 11:37 AM EDT EXAMINATION: XR CHEST PA OR AP 1 VIEW CLINICAL HISTORY: [id number] TECHNIQUE: Portable AP supine chest COMPARISON: 09/01/2017 FINDINGS: There are postsurgical findings including sternotomy wires and multiple support devices. The endotracheal tube is in satisfactory position with the tip projecting about 6 cm above the tianna. There is a new right-sided PA catheter with the tip superimposed over the RIGHT main pulmonary artery. Also noted are mediastinal tubes. There are low lung volumes with bibasilar atelectasis but otherwise the lungs are clear. No large pneumothorax is seen. Procedure Note Tommy Ba MD - 09/11/2017 EXAMINATION: XR CHEST PA OR AP 1 VIEW CLINICAL HISTORY: [id number] TECHNIQUE: Portable AP supine chest COMPARISON: 09/01/2017 FINDINGS: There are postsurgical findings including sternotomy wires and multiplesupport devices. The endotracheal tube is in satisfactory position with the tip projecting about 6 cm above the tianna. There is a new right-sided PAcatheter with the tip superimposed over the RIGHT main pulmonary artery. Also notedare mediastinal tubes. There are low lung volumes with bibasilar atelectasisbut otherwise the lungs are clear. No large pneumothorax is seen. IMPRESSION Expected postoperative findings. No large pneumothorax. Pablo Govea MD IMG DX ORDERABLES * EKG 12 Lead (09/11/2017 11:24 AM EDT) Ventricular rate 59 BPM MUSE SYSTEM Atrial Rate 67 BPM MUSE SYSTEM QRS Duration 90 ms MUSE SYSTEM Q-T Interval 428 ms MUSE SYSTEM QTC Calculated (Bezet) 423 ms MUSE SYSTEM Calculated R Hurley 49 degrees MUSE SYSTEM Calculated T Hurley 42 degrees MUSE SYSTEM INTERPRETATION Atrial fibrillation with slow ventricular response T wave abnormality, consider inferior ischemia Abnormal ECG When compared with ECG of 01-SEP-2017 09:11, Atrial fibrillation has replaced Sinus rhythm Confirmed by MD Afia, Albert Zaldivar ([id number]) on 09/11/2017 10:06:48 PM MUSE SYSTEM 09/11/2017 11:2 4 AM EDT 09/11/2017 10:06 PM EDT Pablo Govea MD ECG ORDERABLES Performing Organization Address [facility] de Phone Number MUSE SYSTEM * (ABNORMAL) Thrombin time (09/11/2017 10:15 AM EDT) Thrombin Time 22(H) 15 - [address] [facility] Comment: A prolongation in the thrombin time (>20 seconds) may be indicative of hypofibrinogenemia or dysfibrinogenemia. The thrombin time will be prolonged, often markedly so, by the presence of heparin or direct thrombin inhibitors (argatroban, bivalirudin, dabigatran) in the specimen. Blood specimen (specimen) 09/11/2017 10:15 AM EDT 09/11/2017 10:19 AM EDT Narrative Resulting Agency Comment Spec In Lab Pablo Govea MD HEMATOLOGY ORDERABL ES Performing Organization Address [facility] Co de Phone Number [facility] [place] [address] * Fibrinogen (09/11/2017 10:15 AM EDT) Fibrinogen 193 180 - 510 mg/dL [facility] Comment: Called by: ambreen, Read back by: Molly Villavicencio, Date/Time:09/11/17 10:36. A fibrinogen level >100 mg/dL is adequate for hemostasis in most patients without underlying bleeding disorders. Blood specimen (specimen) 09/11/2017 10:15 AM EDT 09/11/2017 10:19 AM EDT Narrative Resulting Agency Comment Spec In Lab Pablo Govea MD HEMATOLOGY ORDERABL ES Performing Organization Address [facility] de Phone Number [facility] [place] [address] * APTT (09/11/2017 10:15 AM EDT) PTT 34 25 - [address] [facility] Comment: The recommended therapeutic range for full dose, unfractionated heparin at [facility] is 80 ? 114 seconds. The use of the anti-Xa (heparin) level rather than the PTT is recommended for monitoring anticoagulation intensity in critically ill patients receiving unfractionated heparin by continuous IV infusion. Blood specimen (specimen) 09/11/2017 10:15 AM EDT 09/11/2017 10:19 AM EDT Narrative Resulting Agency Comment Spec In Lab Pablo Govea MD HEMATOLOGY ORDERABL ES Performing Organization Address [facility] de Phone Number [facility] [place] [address] * (ABNORMAL) Prothrombin Time (09/11/2017 10:15 AM EDT) PT 17.5(H) 11.8 - 14.[address] [facility] INR 1.5(H) 0.9 - 1.1 [facility] Comment: An INR <2.0 [...] be appropriate depending on clinical circumstances. Blood specimen (specimen) 09/11/2017 10:15 AM EDT 09/11/2017 10:19 AM EDT Narrative Resulting Agency Comment Spec In Lab Pablo Govea MD HEMATOLOGY ORDERABL ES Performing Organization Address [facility]/State/ZIP Co de Phone Number [facility] [place] [address] * (ABNORMAL) Hemogram (09/11/2017 10:15 AM EDT) WBC 9.3 4.0 - 9.5 x10(3)/[facility] LABORATORY RBC 3.32(L) 4.58 - 5.54 x10(6)/[facility] Hemoglobin 10.0(L) 13.7 - 16.5 gm/dL [facility] Hematocrit 30.3(L) 40.5 - 48.5 % [facility] Comment: This result has been called to ADWOA ORELLANA by RO LOVE on 09 11 2017 at 1028, and has been read back. MCV 91.3 82.9 - 93.1 [facility] MCH 30.1 27.5 - 32.[address] [facility] MCHC 33.0 32.0 - 35.7 gm/dL [facility] Platelets 161 145 - 357 x10(3)/[facility] LABORATORY RDWSD 43.3 36.0 - 45.0 [facility] RDWCV 13.0 11.4 - 13.8 % [facility] MPV 9.4 7.6 - 12.9 [facility] nRBC % Auto 0.0 % [facility] nRBC Abs Auto 0.000 0.000 - 0.000 x10(3)/[facility] Blood specimen (specimen) 09/11/2017 10:15 AM EDT 09/11/2017 10:19 AM EDT Narrative Resulting Agency Comment Spec In Lab Pablo Govea MD HEMATOLOGY ORDERABL ES [facility] [place] [address] * (ABNORMAL) BLOOD GAS 2 ARTERIAL (09/11/2017 10:13 AM EDT) pH Art 7.29(Criti krishna) 7.35 - 7.45 [facility] Comment:Noted by [employer]. pCO2 Art 45 35 - [address] [facility] pO2 Art 87 85 - [address] [facility] HCO3 Art 21.3 20.0 - 26.0 mmol/L [facility] BE Art -5.3(L) -3.0 - 3.0 mmol/L [facility] Hgb Blood Gas 10.7(L) 13.7 - 16.5 gm/dL [facility] O2HB Art 94.1 94.0 - 97.0 % [facility] COHB Art 0.3 % [facility] Comment: Nonsmokers: 0.5-1.5% COHB Smokers: Variable, but usually less than 10% Toxic: 20-30% COHB Lethal: Greater than 60% COHB METHB Art 0.3 <=1.5 % [facility] Na Whole Blood 136 135 - 145 mmol/L [facility] K Whole Blood 4.2 3.5 - 5.0 mmol/L [facility] Comment: Please note: Patients with WBC >100,000 may have falsely elevated Potassium levels. Contact the Clinical Chemistry Laboratory if there are any questions. ICa Whole Blood 1.22 1.15 - 1.33 mmol/L [facility] Comment: Note: ??Total bilirubin higher than 20 mg/dL may lead to falsely low ionized calcium. CL Whole Blood 110(H) 98 - 107 mmol/L [facility] Gluc Whole Bld 165 65 - 199 mg/dL [facility] Comment:Diabetes: >=200 mg/d L plus symptoms. Lactate WB 1.8 0.5 - 2.2 mmol/L [facility] Blood specimen (specimen) 09/11/2017 10:13 AM EDT 09/11/2017 10:13 AM EDT Pablo Govea MD CHEMISTRY ORDERABLE S [facility] [place] [address] * (ABNORMAL) BLOOD GAS 2 ARTERIAL (09/11/2017 9:36 AM EDT) pH Art 7.30(L) 7.35 - 7.45 [facility] pCO2 Art 45 35 - [address] [facility] pO2 Art 227(H) 85 - [address] [facility] HCO3 Art 21.5 20.0 - 26.0 mmol/L [facility] BE Art -4.9(L) -3.0 - 3.0 mmol/L [facility] Hgb Blood Gas 10.6(L) 13.7 - 16.5 gm/dL [facility] O2HB Art 98.5(H) 94.0 - 97.0 % [facility] COHB Art 0.3 % [facility] Comment: Nonsmokers: 0.5-1.5% COHB Smokers: Variable, but usually less than 10% Toxic: 20-30% COHB Lethal: Greater than 60% COHB METHB Art 0.3 <=1.5 % [facility] Na Whole Blood 134(L) 135 - 145 mmol/L [facility] K Whole Blood 4.6 3.5 - 5.0 mmol/L [facility] Comment: Please note: Patients with WBC >100,000 may have falsely elevated Potassium levels. Contact the Clinical Chemistry Laboratory if there are any questions. ICa Whole Blood 1.07(L) 1.15 - 1.33 mmol/L [facility] Comment: Note: ??Total bilirubin higher than 20 mg/dL may lead to falsely low ionized calcium. CL Whole Blood 107 98 - 107 mmol/L [facility] Gluc Whole Bld 183 65 - 199 mg/dL [facility] Comment:Diabetes: >=200 mg/d L plus symptoms. Lactate WB 1.8 0.5 - 2.2 mmol/L [facility] Blood specimen (specimen) 09/11/2017 9:36 AM EDT 09/11/2017 9:36 AM EDT Pablo Govea MD CHEMISTRY ORDERABLE S [facility] [place] [address] * Platelet count (09/11/2017 9:30 AM EDT) Platelets 176 145 - 357 x10(3)/mc L [facility] Plat Immature % 1.4 0.0 - 7.4 % [facility] Comment: Limitation of the Immature Platelet Fraction (IPF)-May be less reliable when the platelet count is less than 57w437/uL due to statistical imprecision. The IPF value provides an assessment of the Bone Marrow production status. ??It is useful in differentiating Thrombocytopenia caused by platelet destruction/consumption versus decreased production. It also helps to determine the imminent release of platelets and can be therefore a helpful parameter in Chemotherapy and Bone marrow transplant patients. ELEVATED IPF value: ?? When the bone marrow is in a state of over production such as when increased destruction and consumption are the underlying issue. ?? When the marrow is recovering post chemotherapy or bone marrow transplant. LOW to NORMAL IPF value: ?? When the bone marrow in not responding and is in a decreased state of production. References: [employer] The Clinical Value of the Immature Platelet Fraction (IPF) in Cell Recovery Document Number 10-1143 11/2010 [employer] The Role of the Immature Platelet Fraction (IPF) in the Differential Diagnosis of Thrombocytopenia, Document [id number] V05/06/08 P05/14 Blood specimen (specimen) 09/11/2017 9:30 AM EDT 09/11/2017 9:38 AM EDT Narrative Resulting Agency Comment Spec In Lab Pablo Govea MD HEMATOLOGY ORDERABL ES Performing Organization Address City/[facility]/ZIP Co de Phone Number [facility] [place] [address] * (ABNORMAL) Hemoglobin and Hematocrit, blood (09/11/2017 9:30 AM EDT) Pathologist [facility] Hemoglobin 9.9(L) 13.7 - 16.5 gm/dL [facility] Hematocrit 29.2(L) 40.5 - 48.5 % [facility] Comment: This result has been called to SIENA VILLAVICENCIO by DILLAN NASCIMENTO on 09 11 2017 at 0954, and has been read back. Blood specimen (specimen) 09/11/2017 9:30 AM EDT 09/11/2017 9:38 AM EDT Narrative Resulting Agency Comment Spec In Lab Pablo Govea MD HEMATOLOGY ORDERABL ES Performing Organization Address City/[facility]/ZIP Co de Phone Number [facility] [place] [address] * Fibrinogen (09/11/2017 9:30 AM EDT) Pathologist [facility] Fibrinogen 182 180 - 510 mg/dL [facility] Comment: Called by: eds, Read back by: Molly Villavicencio, Date/Time:09/11/17 09:51. A fibrinogen level >100 mg/dL is adequate for hemostasis in most patients without underlying bleeding disorders. Blood specimen (specimen) 09/11/2017 9:30 AM EDT 09/11/2017 9:38 AM EDT Narrative Resulting Agency Comment Spec In Lab Pablo Govea MD HEMATOLOGY ORDERABL ES [facility] [place] [address] * (ABNORMAL) BLOOD GAS 2 ARTERIAL (09/11/2017 9:15 AM EDT) Pathologist [facility] pH Art 7.31(L) 7.35 - 7.45 [facility] pCO2 Art 46(H) 35 - [address] [facility] pO2 Art 317(H) 85 - [address] [facility] HCO3 Art 22.2 20.0 - 26.0 mmol/L [facility] BE Art -4.1(L) -3.0 - 3.0 mmol/L [facility] Hgb Blood Gas 10.8(L) 13.7 - 16.5 gm/dL [facility] O2HB Art 98.5(H) 94.0 - 97.0 % [facility] COHB Art 0.3 % [facility] Comment: Nonsmokers: 0.5-1.5% COHB Smokers: Variable, but usually less than 10% Toxic: 20-30% COHB Lethal: Greater than 60% COHB METHB Art 0.3 <=1.5 % [facility] Na Whole Blood 134(L) 135 - 145 mmol/L [facility] K Whole Blood 5.0 3.5 - 5.0 mmol/L [facility] Comment: Please note: Patients with WBC >100,000 may have falsely elevated Potassium levels. Contact the Clinical Chemistry Laboratory if there are any questions. ICa Whole Blood 0.96(L) 1.15 - 1.33 mmol/L [facility] Comment: Note: ??Total bilirubin higher than 20 mg/dL may lead to falsely low ionized calcium. CL Whole Blood 106 98 - 107 mmol/L [facility] Gluc Whole Bld 188 65 - 199 mg/dL [facility] Comment:Diabetes: >=200 mg/d L plus symptoms. Lactate WB 1.5 0.5 - 2.2 mmol/L [facility] Blood specimen (specimen) 09/11/2017 9:15 AM EDT 09/11/2017 9:15 AM EDT Pablo Govea MD CHEMISTRY ORDERABLE S [facility] [place] [address] * (ABNORMAL) BLOOD GAS 2 ARTERIAL (09/11/2017 8:12 AM EDT) pH Art 7.35(L) 7.35 - 7.45 [facility] pCO2 Art 41 35 - [address] [facility] pO2 Art 148(H) 85 - [address] [facility] HCO3 Art 22.3 20.0 - 26.0 mmol/L [facility] BE Art -3.3(L) -3.0 - 3.0 mmol/L [facility] Hgb Blood Gas 13.1(L) 13.7 - 16.5 gm/dL [facility] O2HB Art 97.8(H) 94.0 - 97.0 % [facility] COHB Art 0.6 % [facility] Comment: Nonsmokers: 0.5-1.5% COHB Smokers: Variable, but usually less than 10% Toxic: 20-30% COHB Lethal: Greater than 60% COHB METHB Art 0.1 <=1.5 % [facility] Na Whole Blood 140 135 - 145 mmol/L [facility] K Whole Blood 3.9 3.5 - 5.0 mmol/L [facility] Comment: Please note: Patients with WBC >100,000 may have falsely elevated Potassium levels. Contact the Clinical Chemistry Laboratory if there are any questions. ICa Whole Blood 1.23 1.15 - 1.33 mmol/L [facility] Comment: Note: ??Total bilirubin higher than 20 mg/dL may lead to falsely low ionized calcium. CL Whole Blood 110(H) 98 - 107 mmol/L [facility] Gluc Whole Bld 118 65 - 199 mg/dL [facility] Comment:Diabetes: >=200 mg/d L plus symptoms. Lactate WB 2.1 0.5 - 2.2 mmol/L [facility] FIO2 Art 70 % [facility] PF Ratio Art 211 [facility] Blood specimen (specimen) 09/11/2017 8:12 AM EDT 09/11/2017 8:12 AM EDT Pablo Govea MD CHEMISTRY ORDERABLE S [facility] [place] [address] * Prepare RBC (09/11/2017 6:30 AM EDT) Dispensed? Yes [facility] Blood specimen (specimen) 09/11/2017 6:30 AM EDT 09/11/2017 6:25 AM EDT Pablo Govea MD BLOOD BANK PRODUCT ORDERABLES 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 documented in this encounter Administered Medications Inactive Administered Medications - up to 3 most recent administrations Medication Order MAR Action Action Date Dose Rate Site acetaminophen (TYLENOL) tablet 1,000 mg 1,000 mg, Oral, EVERY 6 HOURS SCHEDULED, First dose on Mon09/12/17 at 1200, Until Discontinued, For pain when taking by mouth , Routine Given 09/15/2017 9:25 AM EDT 1,000 mg Given 09/15/2017 4:08 AM EDT 1,000 mg Given 09/14/2017 8:18 PM EDT 1,000 mg AMIOdarone (CORDARONE; PACERONE) tablet 200 mg 200 mg, Oral, 2 TIMES DAILY, First dose on Mon09/14/17 at 2100, Until Discontinued, Routine Given 09/15/2017 9:25 AM EDT 200 mg Given 09/14/2017 8:19 PM EDT 200 mg aspirin chewable tablet 81 mg 81 mg, Oral, DAILY, First dose (after last modification) on Mon09/11/17 at 1615, Until Discontinued, Routine Given 09/15/2017 9:26 AM EDT 81 mg Given 09/14/2017 8:28 AM EDT 81 mg Given 09/13/2017 9:25 AM EDT 81 mg aspirin suppository 300 mg 300 mg, Rectal, DAILY, First dose (after last modification) on Mon09/11/17 at 1615, Until Discontinued, Give VA if unable to take PO, Routine Given 09/11/2017 9:15 PM EDT 300 mg calcium chloride 100 mg/mL (10 %) injection ONCE PRN, Starting on Mon09/11/17 at 0953, Until Mon09/11/17 at 1052, Intra-Operative (Intra-Procedure), Routine Given 09/11/2017 9:53 AM EDT 1 g cardioplegic solution (PLEGISOL) induction solution CONTINUOUS PRN, Starting on Mon09/11/17 at 0911, Until Mon09/11/17 at 1052, Intra-Operative (Intra-Procedure) New Bag 09/11/2017 9:11 AM EDT 300 mLs cardioplegic solution (PLEGISOL) maintenance solution CONTINUOUS PRN, Starting on Mon09/11/17 at 0934, Until Mon09/11/17 at 1052, Intra-Operative (Intra-Procedure) Restarted 09/11/2017 9:37 AM EDT 100 mLs New Bag 09/11/2017 9:34 AM EDT 100 mLs cardioplegic solution (PLEGISOL) reperfusion solution CONTINUOUS PRN, Starting on Mon09/11/17 at 0955, Until Mon09/11/17 at 1052, Intra-Operative (Intra-Procedure) New Bag 09/11/2017 9:55 AM EDT 75 mLs electrolyte (pH 7.4) (NORMOSOL-R; PLASMALYTE-A) injection CONTINUOUS PRN, Starting on Mon09/11/17 at 0807, Until Mon09/11/17 at 1052, Intra-Operative (Intra-Procedure) New Bag 09/11/2017 9:01 AM EDT 1.5 L furosemide (LASIX) injection 20 mg 20 mg, Intravenous, 2 TIMES DAILY, First dose on Mon09/12/17 at 1700, Until Discontinued Given 09/15/2017 9:26 AM EDT 20 mg Given 09/14/2017 5:18 PM EDT 20 mg Given 09/14/2017 8:35 AM EDT 20 mg heparin (porcine) injection ONCE PRN, Starting on Mon09/11/17 at 0808, Until Mon09/11/17 at 1052, Intra-Operative (Intra-Procedure), Routine Given 09/11/2017 9:01 AM EDT 5,000 Units Given 09/11/2017 8:57 AM EDT 10,000 Units Given 09/11/2017 8:46 AM EDT 19,000 Units lidocaine (PF) (XYLOCAINE) 100 mg/5 mL (2 %) injection ONCE PRN, Starting on Mon09/11/17 at 0953, Until Mon09/11/17 at 1052, Intra-Operative (Intra-Procedure), Routine Given 09/11/2017 9:53 AM EDT 200 mg magnesium hydroxide (MILK OF MAGNESIA) oral suspension 10 mL 10 mL, Oral, DAILY, First dose on Mon09/13/17 at 0900, Until Discontinued, Post-op day 2. Do not use with renal insufficiency., Routine Given 09/13/2017 9:20 AM EDT 10 mLs magnesium sulfate 4 mEq/mL (50 %) injection ONCE PRN, Starting on Mon09/11/17 at 0953, Until Mon09/11/17 at 1052, Intra-Operative (Intra-Procedure), Routine Given 09/11/2017 9:53 AM EDT 2 g mannitol (50 grams and over) 100 g/500 mL (20%) infusion CONTINUOUS PRN, Starting on Mon09/11/17 at 0927, Until Mon09/11/17 at 1052, Intra-Operative (Intra-Procedure) New Bag 09/11/2017 9:27 AM EDT 50 g meTOPROLOL tartrate (LOPRESSOR) tablet 25 mg 25 mg, Oral, EVERY 8 HOURS SCHEDULED, First dose (after last modification) on Kimberly 09/14/17 at 1400, Until Discontinued, Routine Given 09/15/2017 5:02 AM EDT 25 mg Given 09/14/2017 9:39 PM EDT 25 mg Given 09/14/2017 1:19 PM EDT 25 mg ondansetron (ZOFRAN) injection 8 mg 8 mg, Intravenous, EVERY 8 HOURS PRN, Starting on Mon09/11/17 at 1505, Until Mon09/15/17 at 1254, Nausea Given 09/12/2017 7:30 AM EDT 4 mg Given 09/12/2017 3:30 AM EDT 4 mg Given 09/11/2017 8:10 PM EDT 8 mg pantoprazole (PROTONIX) injection 40 mg 40 mg, Intravenous, DAILY, First dose on Mon09/11/17 at 1130, Until Discontinued, Reconstitute with 10 mL of normal saline to a concentration of 4 mg/mL and infuse slowly over 2 minutes. , Routine Given 09/11/2017 12:12 PM EDT 40 mg pantoprazole (PROTONIX) tablet 40 mg 40 mg, Oral, DAILY, First dose on Mon09/11/17 at 1130, Until Discontinued, DO NOT CRUSH OR OPEN If unable to take PO, may give IV Given 09/15/2017 9:27 AM EDT 40 mg Given 09/14/2017 8:28 AM EDT 40 mg Given 09/13/2017 9:24 AM EDT 40 mg senna-docusate (PERICOLACE) 8.6-50 mg per tablet 2 tablet 2 tablet, Oral, DAILY, First dose on Mon09/12/17 at 2100, Until Discontinued, Post-op day 1, Routine Given 09/12/2017 9:13 PM EDT 2 tablets simvastatin (ZOCOR) tablet 20 mg 20 mg, Oral, NIGHTLY, First dose (after last modification) on Kimberly 09/14/17 at 2100, Until Discontinued Given 09/14/2017 8:18 PM EDT 20 mg sodium chloride 0.9 % flush 5 mL 5 mL, Intravenous, EVERY 8 HOURS, First dose on Mon09/12/17 at 1100, Until Discontinued, Routine Given 09/15/2017 3:00 AM EDT 5 mLs Given 09/14/2017 7:00 PM EDT 5 mLs Given 09/14/2017 11:00 AM EDT 5 mLs vancomycin (VANCOCIN) injection ONCE PRN, Starting on Mon09/11/17 at 0709, Until Mon09/11/17 at 1052, Intra-Operative (Intra-Procedure), Routine Given 09/11/2017 7:09 AM EDT 1 g 19- Surgical Site verapamil (ISOPTIN) injection ONCE PRN, Starting on Mon09/11/17 at 0710, Until Mon09/11/17 at 1052, Administer over 2 Minutes, Intra-Operative (Intra-Procedure) Given 09/11/2017 7:10 AM EDT 5 mg 19- Surgical Site documented in this encounter Active and Recently Administered Medications Times are shown in EDT. Scheduled Medication Order 09/13/2017 09/14/2017 09/15/2017 acetaminophen (TYLENOL) tablet 1,000 mg 1,000 mg, Oral, EVERY 6 HOURS SCHEDULED, First dose on Mon09/12/17 at 1200, Until Discontinued, For pain when taking by mouth , Routine 040 (Given - Provider: Belgica Olson RN)09 (Given - Provider: Mara Hood, LENY)163 (Given - Provider: Mara Hood, LENY)2007 (Not Given - Provider: Mar Nash RN - Reason: Patient/family refused) 0542 (Given - Provider: Mar Nash, RN)103 (Given - Provider: Mara Hood, LENY)172 (Given - Provider: Mara Hood, LENY)2017 (Given - Provider: Elías Smith RN) 407 (Given - Provider: Юлия Chacon RN)09 (Given - Provider: Mara Hood, LENY) AMIOdarone (CORDARONE) bolus from bag 150 mg (COMPLETED)(Linked Group 1) 150 mg, Intravenous, Administer over 30 Minutes, ONCE, 1 dose, On Mon09/13/17 at 2200, Rapid Load. Bolus from Bag, Routine 2222 (Bolus from Bag - Provider: Mar Nash RN) AMIOdarone (CORDARONE; PACERONE) tablet 200 mg 200 mg, Oral, 2 TIMES DAILY, First dose on Mon09/14/17 at 2100, Until Discontinued, Routine 2018 (Given - Provider: Elías Smith RN - Comment: .47) 09 (Given - Provider: Mara Hood, LENY - Comment: QTC .46) aspirin chewable tablet 81 mg(Linked Group 2) 81 mg, Oral, DAILY, First dose (after last modification) on Mon09/11/17 at 1615, Until Discontinued, Routine 09 (Given - Provider: Mara Hood RN) 0828 (Given - Provider: Mara Hood, LENY) 09 (Given - Provider: Mara Hood, LENY) aspirin suppository 300 mg(Linked Group 2) 300 mg, Rectal, DAILY, First dose (after last modification) on Mon09/11/17 at 1615, Until Discontinued, Give VA if unable to take PO, Routine 0925 (See Alternative - Provider: Mara Hood RN) 0828 (See Alternative - Provider: Mara Hood RN) 09 (See Alternative - Provider: Mara Hood RN) furosemide (LASIX) injection 20 mg 20 mg, Intravenous, 2 TIMES DAILY, First dose on Mon09/12/17 at 1700, Until Discontinued 09 (Given - Provider: Mara Hood RN)1633 (Given - Provider: Mara Hood RN) 0835 (Given - Provider: Mara Hood, LENY)1718 (Given - Provider: Mara Hood RN) 09 (Given - Provider: Mara Hood RN) insulin lispro (humaLOG) VIAL injection 1-4 Units (CANCELED)(Linked Group 3) 1-4 Units, Subcutaneous, 3 TIMES DAILY BEFORE MEALS, First dose on Mon09/12/17 at 1130, Until Discontinued, CORRECTION BOLUS Sensitive to insulin lean patient or total daily dose of all insulin needed to achieve glycemic control less than 30 units BG 140 - 160 Give 1 unit BG 161 - 200 Give 2 units BG 201 - 240 Give 3 units BG greater than 240, give 4 units and recheck BG in 2 hours. If less than 240 after two hours, give no insulin and resume prior schedule. If BG remains greater than 240, repeat 4 units (no more than three times) & call for new basal insulin orders. DO NOT hold if NPO, unless specifically told to do so., Routine 0755 (Given - Provider: Mara Hood RN) magnesium hydroxide (MILK OF MAGNESIA) oral suspension 10 mL 10 mL, Oral, DAILY, First dose on Mon09/13/17 at 0900, Until Discontinued, Post-op day 2. Do not use with renal insufficiency., Routine 0920 (Given - Provider: Mara Hood RN) 0900 (Not Given - Provider: Mara Hood RN - Reason: Contraindicated) 0900 (Not Given - Provider: Mara Hood RN - Reason: Patient/family refused) magnesium sulfate 2 g in sterile water 50 mL (COMPLETED) 2 g, Intravenous, ONCE, 1 dose, On Mon09/13/17 at 2200, Administer over 120 Minutes 2225 (New Bag - Provider: Mar Nash RN) 0025 (Stopped - Provider: Mar Nash RN) magnesium sulfate 2 g in sterile water 50 mL (COMPLETED) 2 g, Intravenous, ONCE, 1 dose, On Kimberly 09/14/17 at 1315, Administer over 120 Minutes 1319 (New Bag - Provider: Juan Pinzon RN)1519 (Stopped - Provider: Mara Hood, LENY) meTOPROLOL tartrate (LOPRESSOR) tablet 25 mg (CANCELED) 25 mg, Oral, EVERY 12 HOURS SCHEDULED (2 times per day), First dose (after last modification) on Mon09/13/17 at 0900, Until Discontinued, Routine 0925 (Given - Provider: Mara Hood RN)2007 (Given - Provider: Mar Nash, LENY) 08 (Given - Provider: Mara Hood, LENY) meTOPROLOL tartrate (LOPRESSOR) tablet 25 mg 25 mg, Oral, EVERY 8 HOURS SCHEDULED, First dose (after last modification) on Kimberly 09/14/17 at 1400, Until Discontinued, Routine 1319 (Given - Provider: Juan Pinzon RN)213 (Given - Provider: Юлия Chacon, LENY) 050 (Given - Provider: Юлия Chacon, RN) pantoprazole (PROTONIX) injection 40 mg(Linked Group 4) 40 mg, Intravenous, DAILY, First dose on Mon09/11/17 at 1130, Until Discontinued, Reconstitute with 10 mL of normal saline to a concentration of 4 mg/mL and infuse slowly over 2 minutes. , Routine 0924 (See Alternative - Provider: Mara Hood, LENY) 0828 (See Alternative - Provider: Mara Hood, LENY) 09 (See Alternative - Provider: Mara Hood, LENY) pantoprazole (PROTONIX) tablet 40 mg(Linked Group 4) 40 mg, Oral, DAILY, First dose on Mon09/11/17 at 1130, Until Discontinued, DO NOT CRUSH OR OPEN If unable to take PO, may give IV 0924 (Given - Provider: Mara Hood RN) 0828 (Given - Provider: Mara Hood RN) 09 (Given - Provider: Mara Hood RN) potassium chloride (K-DUR/KLOR-CON) extended release tablet 40 mEq (CANCELED) 40 mEq, Oral, 2 TIMES DAILY, 2 doses, First dose (after last modification) on Mon09/14/17 at 0900, Last dose on Mon09/15/17 at 0700, Routine 0827 (Given - Provider: Mara Hood RN) potassium chloride (K-DUR/KLOR-CON) extended release tablet 40 mEq (COMPLETED) 40 mEq, Oral, 2 TIMES DAILY, 1 dose, First dose (after last modification) on Mon09/14/17 at 1515, Routine 1726 (Given - Provider: Mara Hood RN) potassium chloride (K-DUR/KLOR-CON) extended release tablet 40 mEq (COMPLETED) 40 mEq, Oral, ONCE, 1 dose, On Mon09/15/17 at 0930, Routine 1039 (Given - Provider: Mara Hood RN) senna-docusate (PERICOLACE) 8.6-50 mg per tablet 2 tablet 2 tablet, Oral, DAILY, First dose on Mon09/12/17 at 2100, Until Discontinued, Post-op day 1, Routine 2100 (Not Given - Provider: Mar Nash RN - Reason: Patient/family refused) 2017 (Not Given - Provider: Elías Smith RN - Reason: Patient/family refused) simvastatin (ZOCOR) tablet 20 mg 20 mg, Oral, NIGHTLY, First dose (after last modification) on Mon09/14/17 at 2100, Until Discontinued 2017 (Given - Provider: Elías Smith RN) simvastatin (ZOCOR) tablet 40 mg (CANCELED) 40 mg, Oral, NIGHTLY, First dose on Mon09/11/17 at 2100, Until Discontinued 2007 (Given - Provider: Mar Nash RN) sodium chloride 0.9 % flush 5 mL 5 mL, Intravenous, EVERY 8 HOURS, First dose on Mon09/12/17 at 1100, Until Discontinued, Routine 0300 (Not Given - Provider: Belgica Olson RN - Reason: See comment - Comment: given earlier)1100 (Not Given - Provider: Mara Hood RN - Reason: Contraindicated)2007 (Given - Provider: Mar Nash, LENY) 0300 (Not Given - Provider: Mar Nash RN - Reason: Order parameters not met - Comment: IV infusing)1100 (Given - Provider: Mara Hood, RN)1900 (Given - Provider: Elías Smith, LENY) 0300 (Given - Provider: Юлия Chacon RN) Continuous Medication Order 09/13/2017 09/14/2017 09/15/2017 AMIOdarone (CORDARONE) 360 mg in dextrose 5% 200 mL infusion ()(Linked Group 1) 0.5-1 mg/min (16.6667-33.3333 mL/hr, rounded to 16.7-33.3 mL/hr), Intravenous, CONTINUOUS, Starting on 09/13/17 at 2200, Until Kimberly 09/14/17 at 2200, Initiate loading infusion (slow): 1 mg/minute over 6 hours, then decrease to maintenance Infusion: 0.5 mg/minute over 18 hours. At 24 hours from start time, call MD regarding infusion or change to oral dosing. 2253 (New Bag - Provider: Mar Nash RN) 0144 (New Bag - Provider: Mar Nash RN)0500 (Rate/Dose Change - Provider: Mar Nash RN)2114 (Stopped - Provider: Elías Smith RN) PRN Medication Order 09/13/2017 09/14/2017 09/15/2017 bisacodyl (DULCOLAX) suppository 10 mg 10 mg, Rectal, DAILY PRN, Starting on Kimberly 09/14/17 at 0000, Until Mon09/15/17 at 1254, Constipation, Starting post-op day 3., Routine ondansetron (ZOFRAN) injection 8 mg 8 mg, Intravenous, EVERY 8 HOURS PRN, Starting on 09/11/17 at 1505, Until Mon09/15/17 at 1254, Nausea oxyCODONE (ROXICODONE) immediate release tablet 5-10 mg 5-10 mg, Oral, EVERY 4 HOURS PRN, Starting on 09/11/17 at 1109, Until Mon09/15/17 at 1254, Pain, - When tolerating oral medications. - Initial dose 5 mg. - If pain control not adequate in 60 minutes, give additional 5 mg., Routine Linked Groups Order Group 1: AMIOdarone (CORDARONE) bolus from bag 150 mg (COMPLETED)Jump to med 150 mg, Intravenous, Administer over 30 Minutes, ONCE, 1 dose, On Mon09/13/17 at 2200, Rapid Load. Bolus from Bag, Routine And AMIOdarone (CORDARONE) 360 mg in dextrose 5% 200 mL infusion ()Jump to med 0.5-1 mg/min (16.6667-33.3333 mL/hr, rounded to 16.7-33.3 mL/hr), Intravenous, CONTINUOUS, Starting on Mon09/13/17 at 2200, Until Mon09/14/17 at 2200, Initiate loading infusion (slow): 1 mg/minute over 6 hours, then decrease to maintenance Infusion: 0.5 mg/minute over 18 hours. At 24 hours from start time, call MD regarding infusion or change to oral dosing. Group 2: aspirin chewable tablet 81 mgJump to med 81 mg, Oral, DAILY, First dose (after last modification) on Mon09/11/17 at 1615, Until Discontinued, Routine Or aspirin suppository 300 mgJump to med 300 mg, Rectal, DAILY, First dose (after last modification) on Mon09/11/17 at 1615, Until Discontinued, Give VA if unable to take PO, Routine Group 3: POCT Fingerstick Glucose (CANCELED) Routine, 4 TIMES DAILY BEFORE MEALS & AT BEDTIME, First occurrence on Mon09/12/17 at 1100, Until Specified, Consider choosing FOUR TIMES A DAY BEFORE MEALS AND AT BEDTIME as frequency for: Patients who have good hypoglycemia awareness: -Patients who are eating meals during the day and sleeping at night -Patient who are otherwise stable And insulin lispro (humaLOG) VIAL injection 1-4 Units (CANCELED)Jump to med 1-4 Units, Subcutaneous, 3 TIMES DAILY BEFORE MEALS, First dose on Mon09/12/17 at 1130, Until Discontinued, CORRECTION BOLUS Sensitive to insulin lean patient or total daily dose of all insulin needed to achieve glycemic control less than 30 units BG 140 - 160 Give 1 unit BG 161 - 200 Give 2 units BG 201 - 240 Give 3 units BG greater than 240, give 4 units and recheck BG in 2 hours. If less than 240 after two hours, give no insulin and resume prior schedule. If BG remains greater than 240, repeat 4 units (no more than three times) & call for new basal insulin orders. DO NOT hold if NPO, unless specifically told to do so., Routine Group 4: pantoprazole (PROTONIX) tablet 40 mgJump to med 40 mg, Oral, DAILY, First dose on Mon09/11/17 at 1130, Until Discontinued, DO NOT CRUSH OR OPEN If unable to take PO, may give IV Or pantoprazole (PROTONIX) injection 40 mgJump to med 40 mg, Intravenous, DAILY, First dose on Mon09/11/17 at 1130, Until Discontinued, Reconstitute with 10 mL of normal saline to a concentration of 4 mg/mL and infuse slowly over 2 minutes. , Routine documented in this encounter Care Teams Ship Manager Relationship Specialty Start Date End Date Devorah Epstein MD [address] [place] [id number] PCP - General Family Medicine 09/01/17 documented as of this encounter
--- OUTSIDE RECORDS SUMMARY | 2024-01-22 03:02 | XMS_ITS | Encounter Summary ---
Author Organization [facility] [place] [address] Care Team Providers Care Swing Manager Name Role Phone Dveorah Epstein MD Primary Care Provider [phone] Encounter Details Date Type Department Care Team (Late st Contact Info) Description 09/01/2017 9:30 AM EST - 09/01/2017 10:30 AM EST Surgery [place] [id number] [place] [address] CARDIAC CATHETERIZATION Social History Tobacco Use Types [...] Sign Reading Time Taken Comments Blood Pressure 157/67 09/01/2017 9:04 AM EST Pulse 83 09/01/2017 9:04 AM EST Temperature 36.2 ??C (97.2 ??F) 09/01/2017 9:04 AM ES T Respiratory Rate 18 09/01/2017 9:04 AM EST Oxygen Saturation 97% 09/01/2017 9:04 AM EST Inhaled Oxygen Concentration - - Weight 129.9 kg (286 lb 6.4 oz) 09/01/2017 9:04 AM EST Height 182.9 cm (6') 09/01/2017 9:04 AM EST Body Mass Index 38.84 09/01/2017 9:04 AM EST documented in this encounter Discharge Instructions * Discharge Instructions* Mya Ortez V RN - 09/01/2017 1:36 PM EST Activity If you are discharged the same day as your procedure, do not drive yourself home. Arrange to have another person drive. You may walk around when you get home, but keep your activity at a minimum until the morning. Do not bend over, strain, or lift heavy objects for 24 hours after the procedure. Do not participate in active sports for 48 hours. You may engage in sexual activity after 48 hours. These restrictions will not apply if the catheter was placed in a blood vessel in your arm. Catheter Insertion Area Care Take the band-aid off the catheter insertion area the morning following the procedure. You may takea shower if you wish. Wash the area with soap and water. Look for signs of infection over the next several days. A little spot of blood at the catheter insertion area is not unusual. A bruise or small lump under the skin is normal; they generally disappear in 3-4 days. For the first several days at home if you cough or sneeze, hold your groin to help prevent bleeding. Expect some mild tenderness over the area where the catheter was inserted. You will notice this after the local anesthetic (numbing medicine) wears off. This should improve during the 24-48 hours after the procedure. Take tylenol if needed. Contact your doctor if the discomfort worsens. Problems to Watch For If there is bright red blood flowing from the catheter insertion area: *stop what you are doing and lie down *Hold pressure steadily on the area for 15 minutes *Call for Help *If the bleeding does not stop in 15 minutes call 911 for an ambulance. If there is swelling with black and blue color at the catheter insertion area, there may be bleeding inside. Contact the doctor if there is any increase in size. Look at the insertion site for the first few days at home. Signs of infection are: *redness *Swelling *Yellow, white, green or brown foul smelling drainage. *increased soreness If you think there is an infection, take your temperature. Then call your doctor. The limb on the side where you had your catheterization should look and feel normal in its color, sensation, and temperature. If your leg becomes cool, pale, blue or changing color with numbness and tingling, contact your doctor. If you feel faint or dizzy, lie down with your feet elevated. Have someone call the doctor. If you are alert, drink fluids. How to Deal with Chest pain If you had only the cardiac catheterization, treat any angina or chest discomfort as instructed. Stop what you are doing, and sit or lie down. If prescribed, take nitroglycerin under your tongue. If the angina isn't relieved, take another nitroglycerine in 5 minutes. After another 5 minutes, a third nitroglycerine may be taken. If the angina isn't improved you should call for an ambulance to bring you to the nearest hospital emergency room. If your angina is more frequent or more sever than before, contact your doctor. We usually would not expect to have angina after an angioplasty. If you do get angina, treat it as you did before but also contact your doctor. Return to Work The doctor will usually have told you when to return to work. If you do not perform heavy physical labor, most people can return to work in a few days. Diet Follow your previous diet unless otherwise instructed. Cardiac Risk Factors If you have coronary artery disease, it is important that you help control it by reducing your cardiac risk factors. If you smoke, we urge you to stop now. If you think this is going to be a problem,let us know so that we may help you. We have dieticians who can help you learn about low fat, low cholesterol diet. Cardiac rehabilitation programs can help you set up a regular exercise program. Work with your doctor if you have high blood pressure or sugar diabetes to keep these under control. Medications ____Take your usual medications ____Medication changes: If you are taking medicines prescribed by your doctor, do not take any [id number] medicines or herbal preparations without first discussing this with your doctor or pharmacist. There is the possibility of side effect and interactions when these are combined. Follow up Care Who to Call with Questions or Problems If there are any questions or problems that you think might be related to your cardiac cath or angioplasty, contact the transmission supervisor construction services technician by calling [facility] at . documented in this encounter Medications at Time [...] 8 hours. 180 tablet 3 09/15/2017 12/01/2017 chlorhexidine (HIBICLENS) 4 % Liquid Apply topically daily as needed. Shower from head to toe with Chlorhexidine the night before surgery . 120 mL 09/01/2017 09/15/2017 chlorthalidone (HYGROTEN) 25 mg Tablet Take 25 mg by mouth daily. 12/02/2023 valsartan-hydrochlor othiazide (DIOVAN-HCT) 160-12.5 mg Tablet Take 1 tablet by mouth daily. 09/15/2017 simvastatin (ZOCOR) 40 mg Tablet Take 40 mg by mouth nightly. 09/15/2017 selenium 50 mcg Tablet Take 200 mcg by mouth. 12/01 UNABLE TO FIND Isrrael jordan 09/15/2017 lactobacillus rhamnosus, GG, (CULTURELLE) 10 billion cell Capsule Take 1 capsule by mouth daily. 12/02/2023 amLODIPine (NORVASC) 5 mg Tablet Take 5 mg by mouth daily. 09/15/2017 meTOPROLOL succinate (TOPROL-XL) 50 mg Tablet Sustained Release 24 hr Take 50 mg by mouth daily. 09/15/2017 cholecalciferol, Vitamin D3, 1,000 unit Capsule Take by mouth. 12/02/2023 glucosamine sulfate 500 mg Tablet Take 1,000 mg by mouth. 12/02/2023 documented as of this encounter Progress Notes * Mya Ortez RN - 09/01/2017 2:05 PM EST Peter offering no complaints. Declines offer of food or drink. Ambulated to bathroom and voided large amount. Dr. Vinesone over to visit with Patient and family . Patient will go to [facility] and xray prior to discharge from hospital documented in this encounter H&P Notes * Marcell Gilman MD - 09/01/2017 8:54 AM EST Complete Adult Pre-Procedural H&P Patient Name: Keegan Cabrera : 1940 77 y.o. MR#: [id number] Chief Complaint: Dyspnea Planned Procedure: Left heart catheterization with coronary angiography History of Present Illness: Keegan Cabrera is a 77 y.o. male with history of Htn, HLD, former tobacco use, obesity who is referred for cardiac catheterization by Dr. Marie for evaluation of dyspnea on exertion. Patient reports progressive dyspnea on exertion over the past 2 years but worsening recently. An echocardiogram was completed which demonstrated normal LV systolic function with no significant valve disease. There was an asymmetrically thickened septum. 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 A follow up stress echocardiogram was completed to evaluate for intra-cavitary gradient. The patient achieved 5 METs of activity and there were up to [address] segment depression on EKG. The intracavitary velocity only reached 2 m/s. Stress echo imaging of the LV was not performed. Given his low functional capacity with ST segment abnormalities on exertion, he is now referred for left heart catheterization with coronary angiography for further assessment of coronary anatomy and disease. There have not been any changes in health status since last seen in clinic. No fevers, no chills, no bleeding. I have reviewed and updated as necessary the Medical, Surgical, Family, and Social History capturedwithin the EMR. I have reviewed and updated as necessary the patient's allergies and current medication list withinthe EMR. Outpatient Prescriptions Marked as Taking for the 09/01/17 encounter (Hospital Encounter) Medication Sig Dispense Refill ??? chlorthalidone (HYGROTEN) 25 mg Tablet Take 25 mg by mouth daily. ??? valsartan-hydrochlorothiazide (DIOVAN-HCT) 160-12.5 mg Tablet Take 1 tablet by mouth daily. ??? simvastatin (ZOCOR) 40 mg Tablet Take 40 mg by mouth nightly. ??? selenium 50 mcg Tablet Take 200 mcg by mouth. ??? UNABLE TO FIND Saw nikki ??? omeprazole (PRILOSEC) 20 mg Capsule, Delayed Release(E.C.) Take 20 mg by mouth daily. ??? lactobacillus rhamnosus, GG, (CULTURELLE) 10 billion cell Capsule Take 1 capsule by mouth daily. ??? aspirin 81 mg Tablet, Delayed Release (E.C.) Take 81 mg by mouth daily. ??? amLODIPine (NORVASC) 5 mg Tablet Take 5 mg by mouth daily. ??? meTOPROLOL succinate (TOPROL-XL) 50 mg Tablet Sustained Release 24 hr Take 50 mg by mouth daily. ??? cholecalciferol, Vitamin D3, 1,000 unit Capsule Take by mouth. ??? glucosamine sulfate 500 mg Tablet Take 1,000 mg by mouth. Review of Systems: Review of Systems Physical Exam: BP 157/67 Pulse 83 Temp 36.2 ??C (97.2 ??F) (Temporal) Resp 18 Ht 182.9 cm (6') Wt 129.9 kg (286 lb 6.4 oz) SpO2 97% BMI 38.84 kg/m2 Physical Exam Gen: Alert, comfortable appearing, obese, WM in NAD HEENT: EOMI, MMM Neck: Supple, no JVD CV: RRR, II/ systolic murmur heard throughout precordium, normal S1/S2, PMI not palpated Resp: CTAB, no W/R/R Abd: Soft, NT/ND, +BS Ext: No edema, clubbing, or cyanosis. Warm and well perfused. Neuro: CN grossly intact, moving all extremities Psych: Appropriate affect Pulses: 2+ bilateral radial pulses, Type D Barbeau test on the right, 2+ bilateral femoral pulses, no femoral bruit appreciated, 2+ bilateral DP pulses ASA: 3: Patient with severe systemic disease Mallampati: IV: none of the structures can be seen Labs reviewed and notable for: No results found for: WBC, HGB, HCT, MCV, PLATELET No results found for: CREATININE, BUN, NA, K, CL, CO2 Assessment and Plan: 77 y.o. male here for cardiac catheterization for dyspnea on exertion with abnormal stress test. Will proceed with left heart catheterization with coronary angiography for further assessment of coronary anatomy and disease. Sedation Plan: moderate (conscious sedation) Marcell Gilman MD Fellow, Interventional Cardiology 09/01/2017 8:54 AM documented in this encounter Plan of Treatment Upcoming Encounters Date Type Department Care Team (Late st Contact Info) Description 03/28/2024 10:00 AM EDT Hospital Encounter Non-Invasive [place] [phone] Arrived documented as of this encounter Procedures Procedure Name Priority Date/Time Associated Diagnosis Comments ABORH RECHECK STATUS Routine 09/01/2017 3:15 PM EST HEMOGRAM Routine 09/01/2017 3:15 PM EST Atherosclerosis of [place] coronary artery of [place] heart with angina pectoris DIFFERENTIAL, AUTOMATED Routine 09/01/2017 3:15 PM EST Atherosclerosis of [place] coronary artery of [place] heart with angina pectoris TYPE AND SCREEN, SDP (FUTURE SURGERY, [facility] [place] PROGRAM ONLY) Routine 09/01/2017 3:15 PM EST Atherosclerosis of [place] coronary artery of [place] heart with angina pectoris ABO/RH TYPING Routine 09/01/2017 3:15 PM EST Atherosclerosis of [place] coronary artery of [place] heart with angina pectoris CBC (WITH DIFF) Routine 09/01/2017 3:15 PM EST Atherosclerosis of [place] coronary artery of [place] heart with angina pectoris ANTIBODY SCREEN Routine 09/01/2017 3:15 PM EST Atherosclerosis of [place] coronary artery of [place] heart with angina pectoris BASIC METABOLIC PANEL (NON-FASTING) Routine 09/01/2017 3:15 PM EST Atherosclerosis of [place] coronary artery of [place] heart with angina pectoris EKG 12-LEAD Routine 09/01/2017 9:11 AM EST Abnormal stress test LOYOLA (dyspnea on exertion) documented in this encounter Results * ABORH Recheck Status (09/01/2017 3:15 PM EST) ABORH Recheck Order Order Placed [facility] ABORH Type Recheck Complete [facility] Blood specimen (specimen) 09/01/2017 3:15 PM EST 09/01/2017 4:27 PM EST Narrative Resulting Agency Comment Spec In Lab Pablo Govea MD BLOOD BANK LAB ZAY PURI [facility] [place] [address] * Differential, Automated (09/01/2017 3:15 PM EST) Neutrophils % 71.6 % [facility] Neutr Abs (ANC) 4.17 1.70 - 6.10 x10(3)/[facility] Lymphocytes % 16.5 % [facility] Lymphocytes Abs 1.0 0.9 - 3.2 x10(3)/[facility] Monocytes % 8.8 % [facility] Monocyte Abs 0.5 0.3 - 0.9 x10(3)/[facility] Eosinophils % 1.9 % [facility] Eosinophils Abs 0.1 0.0 - 0.4 x10(3)/[facility] Basophils % 0.7 % [facility] Basophils Abs 0.0 0.0 - 0.1 x10(3)/[facility] Immature Gran % 0.50 % [facility] Comment: Immature granulocytes(IG's)percentage and absolute count will include metamyelocytes, myelocytes, and promyelocytes. Blood smears from CBCs yielding IG's will be scanned manually for concordance. If this scan disagrees with the automated IG or if promyelocytes are noted, a manual differential will be performed. Steph Gran Abs 0.03 0.00 - 0.04 x10(3)/[facility] Blood specimen (specimen) 09/01/2017 3:15 PM EST 09/01/2017 3:30 PM EST Narrative Resulting Agency Comment Spec In Lab Pablo Govea MD HEMATOLOGY ORDERABL ES [facility] [place] [address] * Hemogram (09/01/2017 3:15 PM EST) Pathologist [facility] WBC 5.8 4.0 - 9.5 x10(3)/[facility] RBC 4.90 4.58 - 5.54 x10(6)/[facility] Hemoglobin 14.9 13.7 - 16.5 gm/dL [facility] Hematocrit 43.8 40.5 - 48.5 % [facility] MCV 89.4 82.9 - 93.1 [facility] MCH 30.4 27.5 - 32.1 pg [facility] MCHC 34.0 32.0 - 35.7 gm/dL [facility] Platelets 157 145 - 357 x10(3)/[facility] RDWSD 43.4 36.0 - 45.0 [facility] RDWCV 13.5 11.4 - 13.8 % [facility] MPV 9.3 7.6 - 12.9 [facility] nRBC % Auto 0.0 % [facility] nRBC Abs Auto 0.000 0.000 - 0.000 x10(3)/[facility] Blood specimen (specimen) 09/01/2017 3:15 PM EST 09/01/2017 3:30 PM EST Narrative Resulting Agency Comment Spec In Lab Pablo Govea MD HEMATOLOGY ORDERABL ES [facility] [place] [address] * Antibody screen (09/01/2017 3:15 PM EST) Pathologist [facility] Ab Screen Interp Negative [facility] Expires at [id number] on: 09/14/2017 [facility] Blood specimen (specimen) 09/01/2017 3:15 PM EST 09/01/2017 3:41 PM EST Narrative Resulting Agency Comment Spec In Lab Pablo Govea MD BLOOD BANK LAB ZAY CORDONFAYE Performing Organization Address City/[facility]/ZIP Co de Phone Number [facility] [place] [address] * ABO/Rh Typing (09/01/2017 3:15 PM EST) Pathologist [facility] ABORH Type B Pos [facility] Blood specimen (specimen) 09/01/2017 3:15 PM EST 09/01/2017 3:41 PM EST Narrative Resulting Agency Comment Spec In Lab Pablo Govea MD BLOOD BANK LAB ZAY KHUSHI Performing Organization Address [facility] Co de Phone Number [facility] [place] [address] * (ABNORMAL) Basic Metabolic Panel (non-fasting) (09/01/2017 3:15 PM EST) [facility] Glucose Lvl 119 65 - 199 mg/dL [facility] Comment:Diabetes: >=200 mg/d L plus symptoms BUN 21(H) 10 - 20 mg/dL [facility] Creatinine 1.12 0.80 - 1.50 mg/dL [facility] Sodium 141 135 - 145 mmol/L [facility] Potassium 3.9 3.5 - 5.0 mmol/L [facility] Comment: Please note: ??Patients with WBC >100,000 may have falsely elevated Potassium levels. ??For accurate Potassium quantification in these patients send serum separator tube (gold top) for subsequent determinations. ??Contact the Clinical Chemistry Laboratory if there are any questions. Chloride 103 98 - 107 mmol/L [facility] CO2 24 22 - 31 mmol/L [facility] Anion Gap 14 5 - 15 mmol/L [facility] Calcium 10.1 8.5 - 10.5 mg/dL [facility] Estimated GFR >60 >=60 [facility] Comment: The reported eGFR should be multiplied by 1.2 for patients. The MDRD is not an appropriate measure of renal function for patients with body mass extremes or in patients with acute kidney failure. [email or web address] [email or web address] Blood specimen (specimen) 09/01/2017 3:15 PM EST 09/01/2017 3:30 PM EST Narrative Resulting Agency Comment Spec In Lab Pablo Govea MD CHEMISTRY ORDERABLE S Performing Organization Address [facility] Co de Phone Number [facility] [place] [address] * EKG 12 Lead (09/01/2017 9:11 AM EST) Ventricular rate 78 BPM MUSE SYSTEM Atrial Rate 78 BPM MUSE SYSTEM P-R Interval 240 ms MUSE SYSTEM QRS Duration 94 ms MUSE SYSTEM Q-T Interval 408 ms MUSE SYSTEM QTC Calculated (Bezet) 465 ms MUSE SYSTEM Calculated P [place] 56 degrees MUSE SYSTEM Calculated R [place] 43 degrees MUSE SYSTEM Calculated T [place] -2 degrees MUSE SYSTEM INTERPRETATION Sinus rhythm with 1st degree A-V block Nonspecific ST and T wave abnormality Abnormal ECG No previous ECGs available I personally reviewed the tracing and edited the fellows interpretation Confirmed by fellow MD Don, Grant ([id number]) on 09/01/2017 11:44:57 AM Confirmed by MD AFSHAN, ISABEL ([id number]) on 09/02/2017 3:03:24 PM MUSE SYSTEM 09/01/2017 9:11 AM EST 09/02/2017 3:03 PM EST Brianna Brock MD ECG ORDERABLES Performing Organization Address [facility] Co de Phone Number MUSE SYSTEM documented in this encounter Visit Diagnoses Diagnosis Abnormal stress test Other nonspecific abnormal cardiovascular system function study LOYOLA (dyspnea on exertion) Other dyspnea and respiratory abnormality Atherosclerosis of [place] coronary artery of [place] heart with angina pectoris LOYOLA (dyspnea on exertion) Other dyspnea and respiratory abnormality Abnormal stress test Other nonspecific abnormal cardiovascular system function study documented in this encounter Administered Medications Inactive Administered Medications - up to 3 most recent administrations Medication Order MAR Action Action Date Dose Rate Site fentaNYL 50 mcg/mL multi-dose injection ONCE PRN, Starting on Mon09/01/17 at 0954, Until Mon09/01/17 at 1100, Cath (Intra-Procedure), Routine Given 09/01/2017 10:44 AM EST 25 mcg Given 09/01/2017 10:24 AM EST 25 mcg Given 09/01/2017 10:13 AM EST 25 mcg heparin (porcine) injection ONCE PRN, Starting on Mon09/01/17 at 1028, Until Mon09/01/17 at 1100, Cath (Intra-Procedure), Routine Given 09/01/2017 10:28 AM EST 2,500 Units iohexol (OMNIPAQUE) 350 mg/mL solution ONCE PRN, Starting on Mon09/01/17 at 1100, Until Mon09/01/17 at 1100, Cath (Intra-Procedure), Routine Given 09/01/2017 11:00 AM EST 113 mLs midazolam (PF) (VERSED) 1 mg/mL multi-dose injection ONCE PRN, Starting on Mon09/01/17 at 0955, Until Mon09/01/17 at 1100, Cath (Intra-Procedure), Routine Given 09/01/2017 10:13 AM EST 1 mg Given 09/01/2017 9:55 AM EST 1 mg ondansetron (ZOFRAN) injection ONCE PRN, Starting on Mon09/01/17 at 1055, Until Mon09/01/17 at 1100, Cath (Intra-Procedure), Routine Given 09/01/2017 10:55 AM EST 4 mg sodium chloride 0.9% infusion 125 mL/hr, Intravenous, CONTINUOUS, Starting on Mon09/01/17 at 1145, Until Mon09/01/17 at 1344, Recovery (Recovery-Hospital Unit) New Bag 09/01/2017 11:34 AM EST 125 mL/hr 125 m L/hr documented in this encounter Active and Recently Administered Medications Times are shown in EST. Continuous Medication Order 08/30/2017 08/31/2017 09/01/2017 sodium chloride 0.9% infusion 50 mL/hr, Intravenous, CONTINUOUS, Starting on Mon09/01/17 at 0915, Until Mon09/01/17 at 1014, Cath (Day of Procedure) 0915 (Due) sodium chloride 0.9% infusion 125 mL/hr, Intravenous, CONTINUOUS, Starting on Mon09/01/17 at 1145, Until Mon09/01/17 at 1344, Recovery (Recovery-Hospital Unit) 1134 (New Bag - Prov ider: Stephanie Masters RN) PRN Medication Order 08/30/2017 08/31/2017 09/01/2017 acetaminophen (TYLENOL) tablet 650 mg 650 mg, Oral, EVERY 6 HOURS PRN, Starting on Mon09/01/17 at 1129, Until Mon09/01/17 at 1423, Pain, For Mild Pain (1-3), Maximum dose of acetaminophen is 4000 mg from all sources in 24 hours., Recovery (Recovery-Hospital Unit), Routine fentaNYL 50 mcg/mL multi-dose injection (CANCELED) ONCE PRN, Starting on Mon09/01/17 at 0954, Until Mon09/01/17 at 1100, Cath (Intra-Procedure), Routine 0954 (Given - Provid er: Grant Domínguez RN)1013 (Given - Provider: Grant Domínguez RN)1024 (Given - Provider: Grant Domínguez RN)1044 (Given - Provider: Navin Stringer RN) heparin (porcine) injection (CANCELED) ONCE PRN, Starting on Mon09/01/17 at 1028, Until Mon09/01/17 at 1100, Cath (Intra-Procedure), Routine 1028 (Given - Provid er: Navin Stringer RN) iohexol (OMNIPAQUE) 350 mg/mL solution (CANCELED) ONCE PRN, Starting on Mon09/01/17 at 1100, Until Mon09/01/17 at 1100, Cath (Intra-Procedure), Routine 1100 (Given - Provid er: Marcell Gilman MD) midazolam (PF) (VERSED) 1 mg/mL multi-dose injection (CANCELED) ONCE PRN, Starting on Mon09/01/17 at 0955, Until Mon09/01/17 at 1100, Cath (Intra-Procedure), Routine 0955 (Given - Provid er: Grant Domínguez RN)1013 (Given - Provider: Grant Domínguez RN) nitroGLYcerin (NITROSTAT) SL tablet 0.4 mg 0.4 mg, Sublingual, EVERY 5 MIN PRN, Starting on Mon09/01/17 at 1129, Until Mon09/01/17 at 1423, Chest pain, May repeat every 5 minutes for a total of three doses. Notify provider if chest pain not relieved with nitroglycerin. Do not administer nitroglycerin if the patient has received or taken phosphodiesterase (PDE-5) inhibitors such as sildenafil, tadalafil or vardenafil within the last 24 to 72 hours., Recovery (Recovery-Hospital Unit), Routine ondansetron (ZOFRAN) injection (CANCELED) ONCE PRN, Starting on Mon09/01/17 at 1055, Until Mon09/01/17 at 1100, Cath (Intra-Procedure), Routine 1055 (Given - Provid er: Grant Domínguez RN) documented in this encounter Care Teams Swing Manager Relationship Specialty Start Date End Date Devorah Epstein MD [address] [place] [address] PCP - General Family Medicine 09/01/17 documented as of this encounter
--- OUTSIDE RECORDS SUMMARY | 2024-01-22 03:02 | XMS_ITS | Encounter Summary ---
Author Organization [facility] Address [facility] [place] [address] Care Team Providers Care Lead Caster Name Role Phone Devorah Epstein MD Primary Care Provider [phone] Reason for Referral * Consultation (Routine) - Specialty Diagnoses / Procedures Referred By Contact Referred To Contact Cardiac Rehabilitation Diagnoses S/P CABG x 2 Pablo Govea MD [facility] CARDIOTHORACIC [place] [address] Cardiac Rehab, [address] [place] [address] Referral ID Status Reason Start Date Expiration Date V isits Requested Visits Authorized [id number] Consult, Test & Treat 09/15/2017 03/14/2018 36 36 Reason for Visit * Auth/Cert Specialty Diagnoses / Procedures Referred By Contac t Referred To Contact Diagnoses 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 cad UNKNOWN Procedures PRO CABG, ARTERIAL, SINGLE PRO CABG, ARTERY-VEIN, SINGLE PRO ENDOSCOPY W/VIDEO-ASST VEIN HARVEST, CABG @CABG, USING ARTERIAL GRAFT;SINGLE ARTERIAL GRAFT (WRVU 33.75) @CABG, VENOUS & ARTERIAL GRAFT;SINGLE VEIN GRAFT (WRVU 3.61) ENDOSCOPIC HARVEST VEIN(S) FOR CABG (WRVU 0.31) Referral ID Status Reason Start Date Expiration Date Visits Re quested Visits Authorized [id number] 1 1 Encounter Details Date Type Department Care Team (Latest Contact Info) Description 09/11/2017 5:55 AM EDT - 09/15/2017 10:54 AM EDT Hospital Encounter Intermediate Cardiac Care Unit [facility] [place] [address] Pablo Govea MD [facility] DR CARDIOTHORACIC [place] [address] 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; S/P CABG x 2 Discharge Disposition: Home with VNA Social History Tobacco Use Types Packs/Day Years [...] Sign Reading Time Taken Comments Blood Pressure 146/79 09/15/2017 7:30 AM EDT Pulse 74 09/15/2017 7:30 AM EDT Temperature 36.7 ??C (98.1 ??F) 09/15/2017 7:30 AM ED T Respiratory Rate 17 09/15/2017 7:30 AM EDT Oxygen Saturation 98% 09/15/2017 7:30 AM EDT Inhaled Oxygen Concentration - - Weight 136.7 kg (301 lb 5.9 oz) 09/15/2017 6:20 AM EDT Height 182.9 cm (6') 09/11/2017 6:16 AM EDT Body Mass Index 40.87 09/11/2017 6:16 AM EDT documented in this encounter Discharge Summaries * Vikash Smith APRN - 09/15/2017 9:27 AM EDT Inpatient - Discharge Summary Patient Name: Keegan Cabrera Patient Age: 77 y.o. Birthdate: 1940 Language: Italian Race: White Ethnicity: Not nor Admit Date: 09/11/2017 Discharge Date: 09/15/2017 Attending Physician: Pablo Govea MD Follow-up Recommendations for Providers: Please continue routine management of cardiovascular risk factors including blood pressure, lipids,glucose, etc. Please note any changes to medications. Patient to follow-up with PCP, Devorah Epstein MD, in 1-2 weeks. Patient to follow-up with Physical Security Engineer, Dr. Marie, in two weeks. Patient to follow-up with Cardiac Surgery, Dr. Pablo Govea, in ~ 4 weeks with CXR, EKG. Inpatient Provider Contact Information: [facility] Section of Cardiac Surgery [facility] [address] FAX [phone] Discharge Diagnoses (Hospital Problems) Primary Diagnoses: CAD [...] 33.75) performed by Pablo Govea MD at [facility] MAIN OR ??? PRO CABG, ARTERY-VEIN, SINGLE N/A 09/11/2017 @CABG, VENOUS & ARTERIAL GRAFT;SINGLE VEIN GRAFT (WRVU 3.61) performed by Pablo Govea MD at [facility] MAIN OR ??? PRO ENDOSCOPY W/VIDEO-ASST VEIN HARVEST, CABG Right 09/11/2017 ENDOSCOPIC HARVEST VEIN(S) FOR CABG (WRVU 0.31) performed by Pablo Govea MD at [facility] MAIN OR Prior To Admission Medications [...] who had a stress test done at [facility] that revealed moderate risk for a cardiac [...] Hospital Course: Keegan Cabrera was admitted to [facility] on 09/11/2017via the Same Day Program. He [...] without incident. He voided normally after his Tello was removed. POD#2 he went into AFIB. [...] Vitals for the past 168 hrs: Weight 09/15/17 0620 (!) 136.7 kg (301 lb 5.9 oz) 09/14/17 0500 (!) 136.2 kg (300 lb [...] Pablo Govea and/or the Cardiac Surgery Physician Manager Diabetes Team may be reached at . Weight: [...] Dr. Pablo Swenson. You may use a Victoria Vera Track or treadmill but avoid any pulling [...] friends, go to a movie, go to yarsanism, etc. Heavy activities: No hunting, skiing, jogging, [...] should resume a low fat, low cholesterol, [place] [employer] Diet Driving: No driving until [...] in 1-2 weeks. Patient to follow-up with Physical Security Engineer, Dr. Marie, in two weeks. Patient to follow-up with Cardiac Surgery, Dr. Pablo Govea, in ~ 4 weeks with CXR, EKG. Cardiac Rehabilitation: Keegan Thomas Deborah was seen today regarding participation in the outpatientPhase 2 Cardiac Rehabilitation at [facility] . The patient agrees to a referral to this program. The referral will be sent at discharge and the patient should be contacted by the Program within 1- 2 weeks from discharge. Future Appointments and Orders Future Orders Complete By Expires XR Chest PA & Lateral (Generic) [48418 [id number] Custom] 09/16/2017 03/18/2018 Process Instructions: Scheduling Instructions: Questions: Where will study be performed?: [facility] Portable exam?: Reason for exam and clinical history: s/p cabg Other pertinent information: Stat read required?: Date of injury if applicable: Requested Time: EKG 12 Lead [EKG1 Custom] As directed Process Instructions: Scheduling Instructions: Questions: Which [facility] location will this be performed?: [facility] Is a rhythm strip needed?: No If EKG Reason is Pre-op Evaluation, indicate diagnosis for surgery.: Referral to Cardiac Rehab [NYZ328 Custom] As directed Process Instructions: If no progress note charted, please enter Clinical details in comments. Scheduling Instructions: Questions: My question or request is: s/p CABG. Cardiac rehab at [facility]. Referral to Home Health - at DISCHARGE [[id number] CPT(R)] As directed Process Instructions: Scheduling Instructions: Comments: DOCUMENTATION FOR VNA SERVICES (INCLUDING THOSE PATIENTS WITH MEDICARE COVERAGE REQUIRING HOME VNA SERVICES AND/OR HOSPICE SERVICES) PATIENT'S LOCATION: Keegan Cabrera [address] [place] [phone] (home) Telephone Information: Yarn Finisher's Name: self In discussion with the attending physician, it is certified that this patient is under their care and that they, or a Nurse Practitioner, or Physician Manager Diabetes who is working directly with them, hada [...] for services as follows: HOME HEALTH AGENCY: [facility]. PHONE: [phone] FAX: [phone] RN orders: Cardiopulmonary assessment, incisional assessment, assess [...] issues please call the Cardiac SurgeryOffice at [phone] FOR MEDICARE ONLY: (please delete this section [...] TUBE SUTURES ON OR AFTER 09/21/17 Signed: VIKASH SMITH APRN [facility] Section of Cardiac Surgery [facility] [address] FAX [phone] Date: 09/15/2017 CC: MD Lucian Henry Dana C, MD [address] [address] documented in this encounter Discharge Instructions * Patient Instructions* Vikash Smith APRN - 09/15/2017 9:34 AM EDT [...] Thomas. Jeferson and/or the Cardiac Surgery Physician Manager Diabetes Team may be reached at . ?? [...] Dr. Pablo Swenson. You may use a Victoria Vera Track or treadmill but avoid any pulling [...] friends, go to a movie, go to yarsanism, etc. ?? Heavy activities: No hunting, skiing, [...] should resume a low fat, low cholesterol, [place] [employer] Diet ?? Driving: No driving [...] 1-2 weeks. ?? Patient to follow-up with Physical Security Engineer, Dr. Marie, in two weeks. ?? Patient to follow-up with Cardiac Surgery, Dr. Pablo Govea, in ~ 4 weeks with CXR, EKG. ?? Cardiac Rehabilitation: Keegan Cabrera??was seen today regarding participation in the outpatient Phase 2 Cardiac Rehabilitation at [facility]??Hospital . ?? The patient agrees to a [...] sebastian 3-4x/day with FWW CARLOS Jackman Pager: [phone] Inpatient Physical Therapy SPTA observed while treating patient and POC and Rx discussed prior to Rx. Joan Garza PTA Pager: [phone] 09/15/17 09 Rehab Evaluation Document Type therapy note (daily [...] Assessment/Treatment (Group);Transfer Assessment/Treatment (Group) Bed Mobility Assessment/Treatment Yzefke-ys-Fjb Dakota (Bed Mobility) independent Zdo-mk-Ryxwvr Dakota (Bed Mobility) independent Comment (Bed Mobility) HOB elevated, pt has bed features at home Transfer Assessment/Treatment Dakota (Sit-Stand Transfers) independent Dakota (Stand-Sit Transfers) independent Fbd-Vryih-Mqq Assistive Device (Transfers) rolling walker Comment (Transfers) no LOB, up from recliner and EOB Gait Assessment/Treatment Dakota (Gait) conditional independence Assistive Device (Gait) rolling walker Distance in Feet (Gait) 160 Gait Pattern Analysis swing-through gait Deviations (Gait) step length decreased Comment (Gait) decreased gait speed due to R knee discomfort Stairs Assessment/Treatment Number of Stairs (Stairs) 1 Handrail Location (Stairs) left side (ascending) Dakota (Stairs) supervision required Technique (Stairs) iheq-ru-ayae (ascending);ecux-fi-hmzg (descending) Comment (Stairs) no LOB, good control Plan of Care Review Plan Of Care Reviewed With patient;family Progress progress toward functional goals as expected Bed Mobility Goal Bed Mobility Goal, Date Established 09/13/17 Bed Mobility Goal, Time to Achieve 5 days Bed Mobility Goal, Activity Type supine to sit/sit to supine Bed Mobility Goal, Dakota Level independent Bed Mobility Goal, Outcome Achieved goal met Gait Training Goal Gait Training Goal, Date Established 09/13/17 Gait Training Goal, Time to Achieve 5 days Gait Training Goal, Dakota Level conditional independence Gait Training Goal, Assist Device (LRD) Gait Training Goal, Distance to Achieve 300ft Gait Training Goal, Additional Goal Pt up and down 1 step without rail and supervision Gait Training Goal, Outcome goal partially met Transfer Training Goal Transfer Training Goal, Date Established 09/13/17 Transfer Training Goal, Time to Achieve 5 days Transfer Training Goal, Activity Type xuk-du-snhto/gfsbz-rw-dgc;uro-os-eklkl/txaty-ru-jeo Transfer Train Goal, Dakota Level conditional independence Transfer Training Goal, Assist [...] Hood RN - 09/14/2017 1:47 PM EDT CLINICAL CYTOGENETICIST SCIENTIST Vikahs notified, pt had a 10 beat run of Vtach, asymptomatic, VSS. Magnesium given, will continue to monitor. * Vikash Smith APRN - 09/14/2017 9:08 AM EDT Cardiac Surgery Progress Note: ID: [id number] POD #3, s/p CABG x 2. Pmhx: HTN, HLD, former smoker, obesity EF-60% 24 Hour Events: afib noc converted after amio started Voiding post tello removal without issue S: pt has no [...] IDA Dispo:[facility] Attending Surgeon on rounds. VIKASH SMITH, WINDER OPERATOR Date: 09/14/2017 * Vaishali Escobar, RN - 09/14/2017 8:24 AM EDT The patient/insurance account representative has been provided a list of Home Health Agencies/DME vendors which servetheir preferred geographic area. A letter describing our affiliations was reviewed with them and they were educated about their right to choose where referrals are placed. Patient requests referral to [facility]. PHONE: [phone] FAX: [phone] Expected date of discharge: 09/15/17 Referral routed to the F[employer]ger for matching with agency/vendor and to provide any required information. * Mar Nash RN - 09/14/2017 4:40 AM EDT OUTCOME [...] N/A CPG GOAL OUTCOME EVALUATION: On-going * Vikash Smith, WINDER OPERATOR - 09/13/2017 8:29 AM EDT Cardiac Surgery Progress Note: ID: [id number] POD #2, s/p CABG x 2. Pmhx: HTN, HLD, former smoker, obesity EF-60% 24 Hour Events: tx to floor Pathway Urology replaced tello with coude tip catheter, hematuria resolved S: [...] : urine clear yellow Incisions:sternotomy dressing CDI Tubes/Lines/Drains:Gricelda CAMPBELL LABS: Recent Labs 09/12/17 0425 09/11/17 1700 [...] 2. Pathway. Hematuria has resolved. Will d/c gricelda today, d/c pw. Increase bb to 25 bid for run of atach. Pt has first degree of 0.24, similar to first degree preop. Neuro:routine neuro exams, scheduled APAP, oxycodone prn CV: metoprolol 25mg PO BID, nightly statin Resp:2L NC, wean as tolerated, CPAP at night, pulse oximetry, hourly IS GI: ADAT daily protonix, RBOs :TELLO D/C Renal: replete K+ per protocol ID:intra-op antibiotics COMPLETE Heme:daily ASA Endo: IDA Dispo:[facility] DW Attending Surgeon on rounds. VIKASH SMITH APRN Date: 09/13/2017 * Mona Nix RCP - 09/13/2017 5:09 AM EDT Pt compliant with home NIV overnight. Will continue to monitor pt. * Analia Shannon APRN - 09/12/2017 9:42 AM EDT Cardiac Surgery Progress Note: ID: [id number] POD #1, s/p CABG x 2. Pmhx: [...] pulses palpable : gross hematuria noted from tello Incisions:sternotomy dressing CDI Tubes/Lines/Drains:LRAL, right IJ introducer, PW, tello, chest tubes LABS: Recent Labs 09/12/17 0425 [...] x 2. Pathway. Gross hematuria noted from tello, urology consult called. Will dc CTs today [...] :urology consult, in to see patient and tello catheter changed to coude catheter, manual irrigation prn Renal: replete K+ per protocol ID:intra-op antibiotics Heme:daily ASA Endo:insulin as per protocol Dispo:[facility], full code, possible transfer later in shift DW Attending Surgeon on rounds. 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 ?? Impression 77-year-old gentleman who is a [...] 30 minute visit 20 minutes were spent laxl-si-aisu discussing the risks and benefits of CABG surgery ? * Pablo Govea MD - 09/11/2017 7:04 AM EDT This is a patient of Dr. Marie that we are seeing for consideration of CABG surgery. ?? This is a 77-year-old male who had been having symptoms of dyspnea on exertion who had a stress test done at [facility] that revealed moderate risk for a cardiac [...] there is no significant disease read bythe supervisor metal furniture fabrication. ?? Impression 77-year-old gentleman who is a [...] 30 minute visit 20 minutes were spent ycqd-of-hqxt discussing the risks and benefits of CABG surgery ? documented in this encounter Procedure Notes * Jasper Tinajero MD - 09/12/2017 9:47 AM EDTProcedure(s): PRO INSERT, TEMP INDWELLING BLAD CATH, SIMPLE Pre-Procedure Diagnose(s): Gross hematuria Post-Procedure Diagnose(s): Gross hematuria Images from the original note were not included. Urology Procedure Note Procedure: Tello placement Pre-op diagnosis: Gross hematuria, ? incorrect intraoperative tello placement Post-op diagnosis: same Indications: Gross hematuria, malpositioned catheter Physicians: Jasper Tinajero MD Anesthesia: Lidocaine jelly Urojet x2 Description: Old 3 way tello catheter with no urine in tubing, dark red/merlot colored output into tello bag. A detailed inspection of the dark red urine showed zero clots in the bag. No clots were present in the entirety of the tube. Old tello was removed; no clots were appreciated on [...] None Fluids: None EBL: None Drains: 18Fr tello to gravity Post-procedure photograph: Clear yellow urine output. No clots. No hematuria. Assessment: - Light prostatic irritation or trauma in the setting of intraoperative tello placement with some bleeding at the time; now normalized, clear output Recommendations: - Tello management per primary team - No further urologic management is necessary documented in this encounter Nursing Notes * Momo Villavicencio RN - 09/11/2017 7:11 AM EDT [...] Outcome: Ongoing (Interventions Implemented as Appropriate) 09/13/17 0441 Coping/Psychosocial Plan Of Care Reviewed With patient [...] OUTCOME EVALUATION: * Plan of Care - Gavi Abreu, PT - 09/13/2017 2:15 PM EDT Physical Therapy Evaluation Pertinent History of Current Problem: S/p CABG x 2 Precautions/Restrictions: sternal, fall Assessment: Pt seen today for evaluation in the ICCU. Pt presents with sternal precautions, impaired breathing mechanics, impaired transfers, impaired gait and impaired activity tolerance from his baseline level of independence. 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 Pt would benefit from ongoing physical therapy interventions. Staff Mobility Recommendations Ambulate 4x/daily with nursing, 1 assist, rolling walker GAVI ABREU, PT Pager: [phone] Inpatient Physical Therapy 09/13/17 1035 Rehab Evaluation [...] threshold step to enter. 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 He [...] Gait Assessment/Treatment (Group);Transfer Assessment/Treatment (Group) Transfer Assessment/Treatment Dakota (Sit-Stand Transfers) contact guard assist;verbal cues required Dakota (Stand-Sit Transfers) contact guard assist Hjw-Hjwdx-Hou Assistive Device (Transfers) rolling walker Gait Assessment/Treatment Dakota (Gait) contact guard assist Assistive Device (Gait) [...] to sit/sit to supine Bed Mobility Goal, Dakota Level independent Gait Training Goal Gait Training Goal, Date Established 09/13/17 Gait Training Goal, Time to Achieve 5 days Gait Training Goal, Dakota Level conditional independence Gait Training Goal, Assist Device (LRD) Gait Training Goal, Distance to Achieve 300 ft Gait Training Goal, Additional Goal Pt up and down 1 step without rail with supervision Transfer Training Goal Transfer Training Goal, Date Established 09/13/17 Transfer Training Goal, Time to Achieve 5 days Transfer Training Goal, Activity Type coh-ek-ibzpe/gijei-dh-tjo;cbr-nn-mjvqq/bqxxq-gh-orc Transfer Train Goal, Dakota Level conditional independence Transfer Training Goal, Assist [...] Problem List Diagnosis Code ??? 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 I25.119 Additional personal [...] Hamlin RN - 09/13/2017 12:15 PM EDT [facility] CARDIAC REHABILITATION Keegan Cabrera was seen today regarding participation in the outpatient Phase 2 Cardiac Rehabilitation at [facility] . The patient agrees to [...] CPG). Outcome: Ongoing (Interventions Implemented as Appropriate) 09/13/17106 Cardiac Surgery Problems Assessed (Cardiac Surgery) all Problems Present (Cardiac Surgery) none Problem: Skin Integrity Impairment, Risk/Actual (Adult) Goal: Identify Related Risk Factors and Signs and Symptoms Related risk factors and signs and symptoms are identified upon initiation of Human Response Clinical Practice Guideline (CPG) Outcome: Ongoing (Interventions Implemented as Appropriate) 09/13/17106 Skin Integrity Impairment, Risk/Actual Skin Integrity Impairment, Risk/Actual: Related Risk Factors surgery/procedure Problem: Patient Care Overview Goal: Plan of Care Review Outcome: Ongoing (Interventions Implemented as Appropriate) 09/12/17212909/13/17106 Coping/Psychosocial Plan Of Care Reviewed With patient -- Plan of Care Review Progress -- progress toward functional goals as expected OUTCOME EVALUATION NOTE: OUTCOME SUMMARY: No acute complications overnight. Patient complained of chest tightness at beginning of shift, CLINICAL CYTOGENETICIST SCIENTIST Shiva notified. Tello catheter draining brown/tea colored urine. No complaints [...] Handling Outcome: Ongoing (Interventions Implemented as Appropriate) 09/12/17212909/13/17 0026 09/13/17106 Daily Care Interventions Self-Care Promotion -- [...] Assessment Outcome: Ongoing (Interventions Implemented as Appropriate) 09/13/17 0107 Discharge Needs Assessment Concerns To Be Addressed [...] Office of Care Management Initial Assessment Vaishali Escobar, RN reviewed record and discussed patient with [...] Health/Prescription Coverage: Primary Insurance: MEDICARE Secondary Insurance: [employer] [place] Prescription Coverage: yes Preferred Pharmacy: [facility] Primary Care Provider: Devorah Epstein MD [phone] Patient/Caregiver Goals of Treatment: discharge to home [...] assist with transition of care planning. Vaishali Escobar, RN Pager: [phone] * Plan of Care - Lenora Ibrahim [...] in the mid 90's. Using IS independently. Tello cath inplace- draining dark urine- no clots noted. PLAN MOVING FORWARD: Up OOB for all meals/3 walks daily/tello cath d/c POD #2. Close monitoring of [...] Outcome: Ongoing (Interventions Implemented as Appropriate) 09/12/17 043 Coping/Psychosocial Plan Of Care Reviewed With patient [...] monitor urine output. 0630: No urine output [id number]. Bladder scan yield 64cc. C/o need to void. Tello balloon deflated,re inflated. Leaked urine around (dessert [...] OUTCOME SUMMARY: Post op CABGx2 arrived to [facility] at 1100. Total chest tube output 250mL. Cardiovascular: 100% AAI paced at 80 b/min, ouzinkie rhythm is sinus jasmeet with pauses 50-70. CI 2.6,no inotropes, PA out at 1930. BPsys 100-120 maintained with intermittent NorEpi or Nitroglycerin. Respiratory: ETT advanced post CXR, extubated at 1430 with PEEP 8. Home BiPap nasal pillows while sleeping, SPO2 95-98% with 3 L/min O2. Strong cough. : Traumatic tello insertion pre-op, mu blood in urine, no [...] 11:01 AM EDT 09/11/2017 Keegan Cabrera 1940 [id number] Preoperative Diagnosis: Coronary artery disease Stable Angina Postoperative Diagnosis: Coronary artery diseaseStable Angina Procedure: CABG times 2: ALFREDO to LAD, SVG to om. Endoscopic vein harvest Surgeon: Pablo Govea M.D. Manager Diabetes: ashwin flores Anesthesia: General endotracheal anesthesia Drains: [...] the medial aspect of the knee. The [facility] Health FoundationView XB7 system was used to dissect out [...] applied. The patient was transported to the CV on levo. All counts were correct. * OR Attestation - Pablo Govea MD - 09/11/2017 10:55 AM EDT Attestation: Case Date: 09/11/2017 I performed this procedure without the involvement of a resident. Pablo Govea MD 09/11/2017 * Brief Op Note - Pablo Govea MD - 09/11/2017 10:54 AM EDT Brief Operative Note Patient Name: Keegan Cabrera : [id number] MR#: [id number] Case Date: 09/11/2017 Surgeon: Surgeon(s) and Role: * Pablo Govea MD - Primary * David Green PA - Physician Manager Diabetes Preoperative diagnosis: cad Postoperative diagnosis: cad Procedure: [...] AM EDT Hospital Encounter Non-In[place] [address] Arrived Scheduled Orders Name Type [...] Comments LAB SCAN 09/18/2017 12:00 AM EDT HOSPITAL FOOD SERVICE WORKER SCAN 09/18/2017 12:00 AM EDT POTASSIUM Routine [...] Routine 09/12/2017 4:25 AM EDT CARDIAC ENZYMES ([facility]) Routine 09/12/2017 4:25 AM EDT CREATININE Routine [...] 0.31) 09/11/2017 7:24 AM EDT 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 Scanning Provider MEDIA MGR SCAN EXT O RDR/RSLT * SCAN DOC: HOSPITAL FOOD SERVICE WORKER (09/18/2017 12:00 AM EDT) Anatomical Region Laterality Modality Other Narrative 09/18/2017 12:00 AM EDT Ordered by an unspecified provider. Scanning Provider MEDIA MGR SCAN EXT O RDR/RSLT * Potassium (09/15/2017 4:43 AM EDT) Potassium 3.5 3.5 - 5.0 mmol/L [facility] Comment: Please note: ??Patients with WBC >100,000 may have falsely elevated Potassium levels. ??For accurate Potassium quantification in these patients send serum separator tube (gold top) for subsequent determinations. ??Contact the Clinical Chemistry Laboratory if there are any questions. Blood specimen (specimen) 09/15/2017 4:43 AM EDT 09/15/2017 5:13 AM EDT Narrative Resulting Agency Comment Spec In Lab Analia Shanonn APRN CHEMISTRY ORDERABL ES [facility] [place] [address] * XR Chest PA & Lateral (Generic) [...] Tommy Ba at 09/14/2017 10:34 AM Analia S Shiva BUSBY IMG DX ORDERABLES * (ABNORMAL) Differential, Automated (09/14/2017 4:15 AM EDT) Neutrophils % 73.5 % [facility] Neutr Abs (ANC) 4.13 1.70 - 6.10 x10(3)/[facility] Lymphocytes % 14.6 % [facility] Lymphocytes Abs 0.8(L) 0.9 - 3.2 x10(3)/[facility] LAB[facility] Monocytes % 9.8 % [facility] Monocyte Abs 0.6 0.3 - 0.9 x10(3)/[facility] Eosinophils % 1.2 % [facility] Eosinophils Abs 0.1 0.0 - 0.4 x10(3)/[facility] LAB[facility] Basophils % 0.2 % [facility] Basophils Abs 0.0 0.0 - 0.1 x10(3)/[facility] LABORATORY Immature Gran % 0.70 % [facility] Comment: Immature granulocytes(IG's)percentage and absolute count will include metamyelocytes, myelocytes, and promyelocytes. Blood smears from CBCs yielding IG's will be scanned manually for concordance. If this scan disagrees with the automated IG or if promyelocytes are noted, a manual differential will be performed. Steph Gran Abs 0.04 0.00 - 0.04 x10(3)/[facility] Blood specimen (specimen) 09/14/2017 4:15 AM EDT 09/14/2017 4:21 AM EDT Narrative Resulting Agency Comment Spec In Lab Analia Shannon APRN HEMATOLOGY ORDERAB LES Performing Organization Address City/[facility]/ZIP Co de Phone Number [facility] [place] [address] * (ABNORMAL) Hemogram (09/14/2017 4:15 AM EDT) WBC 5.6 4.0 - 9.5 x10(3)/[facility] LABORATORY RBC 3.49(L) 4.58 - 5.54 x10(6)/[facility] LABORATORY Hemoglobin 10.5(L) 13.7 - 16.5 gm/dL [facility] Hematocrit 31.2(L) 40.5 - 48.5 % [facility] MCV 89.4 82.9 - 93.1 [facility]ORY MCH 30.1 27.5 - 32.1 pg [facility] MCHC 33.7 32.0 - 35.7 gm/dL [facility] Platelets 114(L) 145 - 357 x10(3)/[facility] LABORATORY RDWSD 43.9 36.0 - 45.0 [facility] RDWCV 13.4 11.4 - 13.8 % [facility] MPV 9.6 7.6 - 12.9 [facility] nRBC % Auto 0.0 % [facility] nRBC Abs Auto 0.000 0.000 - 0.000 x10(3)/[facility] LAB[facility]ORY Blood specimen (specimen) 09/14/2017 4:15 AM EDT 09/14/2017 4:21 AM EDT Narrative Resulting Agency Comment Spec In Lab Analia Shannon APRN HEMATOLOGY ORDERAB LES [facility] [place] [address] * (ABNORMAL) Basic Metabolic Panel (non-fasting) (09/14/2017 4:15 AM EDT) [facility] Glucose Lvl 157 65 - 199 mg/dL [facility] Comment:Diabetes: >=200 mg/d L plus symptoms BUN 27(H) 10 - 20 mg/dL [facility] Creatinine 1.19 0.80 - 1.50 mg/dL [facility] Sodium 138 135 - 145 mmol/L [facility] Potassium 3.4(L) 3.5 - 5.0 mmol/L [facility] Comment: Please note: ??Patients with WBC >100,000 may have falsely elevated Potassium levels. ??For accurate Potassium quantification in these patients send serum separator tube (gold top) for subsequent determinations. ??Contact the Clinical Chemistry Laboratory if there are any questions. Chloride 102 98 - 107 mmol/L [facility] CO2 25 22 - 31 mmol/L [facility] Anion Gap 11 5 - 15 mmol/L [facility] Calcium 8.6 8.5 - 10.5 mg/dL [facility] Estimated GFR 59(L) >=60 [facility] Comment: The reported eGFR should be multiplied by 1.2 for patients. The MDRD is not an appropriate measure of renal function for patients with body mass extremes or in patients with acute kidney failure. http://[facility] [employer].TruckTrack/DHnkdep [email or web address].TruckTrack/DHMCnkf Blood specimen (specimen) 09/14/2017 4:15 AM EDT 09/14/2017 4:21 AM EDT Narrative Resulting Agency Comment Spec In Lab Analia Shannon APRN CHEMISTRY ORDERABL ES [facility] [place] [address] * POCT Glucose (09/13/2017 7:40 AM EDT) POC Glucose 144 65 - 199 mg/dL [facility] Comment: Supplemental ranges: <140 mg/dL before meals <180 mg/dL all other times of the day Blood specimen (specimen) 09/13/2017 7:40 AM EDT 09/13/2017 7:40 AM EDT Pablo Govea MD POINT OF CARE TEST ORDERABLES Performing Organization Address [facility] Co de Phone Number [facility] [place] [address] * Potassium (09/13/2017 3:38 AM EDT) Potassium 4.1 3.5 - 5.0 mmol/L [facility] Comment: Please note: ??Patients with [...] APRN CHEMISTRY ORDERABL ES Performing Organization Address [facility] Co de Phone Number [facility] [place] [address] * POCT Glucose (09/12/2017 8:54 PM EDT) POC Glucose 141 65 - 199 mg/dL [facility] Comment: Supplemental ranges: <140 mg/dL before meals <180 mg/dL all other times of the day Blood specimen (specimen) 09/12/2017 8:54 PM EDT 09/12/2017 8:54 PM EDT Pablo Govea MD POINT OF CARE TEST ORDERABLES Performing Organization Address City/[facility]/ZIP Co de Phone Number [facility] [place] [address] * POCT Glucose (09/12/2017 4:15 PM EDT) POC Glucose 139 65 - 199 mg/dL [facility] Comment: Supplemental ranges: <140 mg/dL before meals <180 mg/dL all other times of the day Blood specimen (specimen) 09/12/2017 4:15 PM EDT 09/12/2017 4:15 PM EDT Pablo Govea MD POINT OF CARE TEST ORDERABLES [facility] [place] [address] * POCT Glucose (09/12/2017 11:39 AM EDT) POC Glucose 122 65 - 199 mg/dL [facility] Comment: Supplemental ranges: <140 mg/dL before meals <180 mg/dL all other times of the day Blood specimen (specimen) 09/12/2017 11:39 AM EDT 09/12/2017 11:39 AM EDT Pablo Govea MD POINT OF CARE TEST ORDERABLES [facility] [place] [address] * POCT Glucose (09/12/2017 10:05 AM EDT) POC Glucose 135 65 - 199 mg/dL [facility] Comment: Supplemental ranges: <140 mg/dL before meals <180 mg/dL all other times of the day Blood specimen (specimen) 09/12/2017 10:05 AM EDT 09/12/2017 10:05 AM EDT Pablo Govea MD POINT OF CARE TEST ORDERABLES [facility] [place] [address] * POCT Glucose (09/12/2017 7:47 AM EDT) Pathologist [facility] POC Glucose 143 65 - 199 mg/dL [facility] Comment: Supplemental ranges: <140 mg/dL before meals <180 mg/dL all other times of the day Blood specimen (specimen) 09/12/2017 7:47 AM EDT 09/12/2017 7:47 AM EDT Pablo Govea MD POINT OF CARE TEST ORDERABLES Performing Organization Address City/State/[facility] Co de Phone Number [facility] [place] [place] [address] * (ABNORMAL) Differential, Automated (09/12/2017 4:25 AM EDT) [facility] Neutrophils % 82.3 % [facility] Neutr Abs (ANC) 4.63 1.70 - 6.10 x10(3)/[facility] Lymphocytes % 7.3 % [facility] Lymphocytes Abs 0.4(L) 0.9 - 3.2 x10(3)/[facility] Monocytes % 9.8 % [facility] Monocyte Abs 0.6 0.3 - 0.9 x10(3)/[facility] Eosinophils % 0.0 % [facility] Eosinophils Abs 0.0 0.0 - 0.4 x10(3)/[facility] Basophils % 0.2 % [facility] Basophils Abs 0.0 0.0 - 0.1 x10(3)/[facility] Immature Gran % 0.40 % [facility] Comment: Immature granulocytes(IG's)percentage and absolute count will include metamyelocytes, myelocytes, and promyelocytes. Blood smears from CBCs yielding IG's will be scanned manually for concordance. If this scan disagrees with the automated IG or if promyelocytes are noted, a manual differential will be performed. Steph Gran Abs 0.02 0.00 - 0.04 x10(3)/ L [facility] Blood specimen (specimen) 09/12/2017 4:25 AM EDT 09/12/2017 4:39 AM EDT Narrative Resulting Agency Comment Spec In Lab David YE HEMATOLOGY ORDER KARENA Performing Organization Address City/[facility]/ZIP Co de Phone Number [facility] [place] [address] * (ABNORMAL) Hemogram (09/12/2017 4:25 AM EDT) WBC 5.6 4.0 - 9.5 x10(3)/[facility] LABORATORY RBC 3.56(L) 4.58 - 5.54 x10(6)/[facility]ORY Hemoglobin 10.7(L) 13.7 - 16.5 gm/dL [facility] Hematocrit 31.8(L) 40.5 - 48.5 % [facility] MCV 89.3 82.9 - 93.1 [facility] MCH 30.1 27.5 - 32.1 pg [facility] MCHC 33.6 32.0 - 35.7 gm/dL [facility] Platelets 113(L) 145 - 357 x10(3)/[facility] LABORATORY RDWSD 44.1 36.0 - 45.0 [facility] RDWCV 13.5 11.4 - 13.8 % [facility] MPV 9.7 7.6 - 12.9 [facility] nRBC % Auto 0.0 % [facility] nRBC Abs Auto 0.000 0.000 - 0.000 x10(3)/[facility] Blood specimen (specimen) 09/12/2017 4:25 AM EDT 09/12/2017 4:39 AM EDT Narrative Resulting Agency Comment Spec In Lab David YE HEMATOLOGY ORDER KARENA [facility] [place] [address] * POCT Glucose (09/12/2017 4:25 AM EDT) [facility] POC Glucose 155 65 - 199 mg/dL [facility] Comment: Supplemental ranges: <140 mg/dL before meals <180 mg/dL all other times of the day Blood specimen (specimen) 09/12/2017 4:25 AM EDT 09/12/2017 4:25 AM EDT Pablo Govea MD POINT OF CARE TEST ORDERABLES Performing Organization Address [facility] Co de Phone Number [facility] [place] [address] * (ABNORMAL) Electrolytes panel (09/12/2017 4:25 AM EDT) [facility] Sodium 139 135 - 145 mmol/L [facility] Potassium 4.0 3.5 - 5.0 mmol/L [facility] Comment: Please note: ??Patients with WBC >100,000 may have falsely elevated Potassium levels. ??For accurate Potassium quantification in these patients send serum separator tube (gold top) for subsequent determinations. ??Contact the Clinical Chemistry Laboratory if there are any questions. Chloride 107 98 - 107 mmol/L [facility] CO2 21(L) 22 - 31 mmol/L [facility] Anion Gap 11 5 - 15 mmol/L [facility] Blood specimen (specimen) 09/12/2017 4:25 AM EDT 09/12/2017 4:40 AM EDT Narrative Resulting Agency Comment Spec In Lab Pablo Govea MD CHEMISTRY ORDERABLE S Performing Organization Address [facility] Co de Phone Number [facility] [place] [address] * (ABNORMAL) Cardiac Enzymes (LEB/CGP) (09/12/2017 4:25 AM EDT) [facility] Troponin-T 0.13(H) 0.00 - 0.00 ng/mL [facility] Comment: The 99th percentile for Troponin T is less than 0.01 ng/mL, any detectable cTnT concentration using this assay should be considered elevated. According to the third universal definition of myocardial infarction the following criteria with a clinical presentation consistent with acute myocardial ischemia meets the diagnosis for a myocardial infarction (MO). Detection of a rise and/or fall of cTnT, with at least one value greater than the 99th percentile (> or = 0.01) and with at least one of the following ?? Symptoms of ischemia ?? New or presumed new significant PL-eabenii-C wave (ST-T) changes or new left bundle [...] additional sample may be indicated. Reference: Third [place] Definition of Myocardial Infarction. Journal of the [place] [employer] 2012;60:1581-98 CK, Total 290(H) 0 - 200 unit/L [facility] Blood specimen (specimen) 09/12/2017 4:25 AM EDT 09/12/2017 4:39 AM EDT Narrative Resulting Agency Comment Spec In Lab Pablo Govea MD CHEMISTRY ORDERABLE S [facility] [place] [address] * Potassium (09/12/2017 4:25 AM EDT) Pathologist [facility] Potassium 4.0 3.5 - 5.0 mmol/L [facility] Comment: Please note: ??Patients with [...] MD CHEMISTRY ORDERABLE S Performing Organization Address [facility] de Phone Number [facility] [place] [address] * (ABNORMAL) Glucose, fasting (09/12/2017 4:25 AM EDT) Glucose Fasting 155(H) 65 - 99 mg/dL [facility] Comment: ?Fasting* Glucose Interpretive Criteria [...] of Diabetes Mellitus, Position Statement from the [place] [employer]. ??Diabetes Care, Volume 33, Supplement 1, Jun 2009 Blood specimen (specimen) 09/12/2017 4:25 AM EDT 09/12/2017 4:39 AM EDT Narrative Resulting Agency Comment Spec In Lab Pablo Govea MD CHEMISTRY ORDERABLE S Performing Organization Address [facility] Co de Phone Number [facility] [place] [address] * Creatinine (09/12/2017 4:25 AM EDT) Creatinine 1.13 0.80 - 1.50 mg/dL [facility] Estimated GFR >60 >=60 [facility] Comment: The reported eGFR should be multiplied by 1.2 for patients. The MDRD is not an appropriate measure of renal function for patients with body mass extremes or in patients with acute kidney failure. http://[email or web address].TruckTrack/DHnkdep [email or web address] Blood specimen (specimen) 09/12/2017 4:25 AM EDT 09/12/2017 4:39 AM EDT Narrative Resulting Agency Comment Spec In Lab Pablo Govea MD CHEMISTRY ORDERABLE S Performing Organization Address [facility] Co de Phone Number [facility] [place] [address] * (ABNORMAL) BUN (09/12/2017 4:25 AM EDT) BUN 21(H) 10 - 20 mg/dL [facility] Blood specimen (specimen) 09/12/2017 4:25 AM EDT 09/12/2017 4:39 AM EDT Narrative Resulting Agency Comment Spec In Lab Pablo Govea MD CHEMISTRY ORDERABLE S Performing Organization Address [facility] Co de Phone Number [facility] [place] [address] * POCT Glucose (09/12/2017 2:16 AM EDT) POC Glucose 139 65 - 199 mg/dL [facility] Comment: Supplemental ranges: <140 mg/dL before meals <180 mg/dL all other times of the day Blood specimen (specimen) 09/12/2017 2:16 AM EDT 09/12/2017 2:16 AM EDT Pablo Govea MD POINT OF CARE TEST ORDERABLES Performing Organization Address [facility] Co de Phone Number [facility] [place] [address] * POCT Glucose (09/11/2017 11:31 PM EDT) POC Glucose 156 65 - 199 mg/dL [facility] Comment: Supplemental ranges: <140 mg/dL before meals <180 mg/dL all other times of the day Blood specimen (specimen) 09/11/2017 11:31 PM EDT 09/11/2017 11:31 PM EDT Pablo Govea MD POINT OF CARE TEST ORDERABLES Performing Organization Address City/[facility]/ZIP Co de Phone Number [facility] [place] [address] * POCT Glucose (09/11/2017 7:05 PM EDT) POC Glucose 145 65 - 199 mg/dL [facility] Comment: Supplemental ranges: <140 mg/dL before meals <180 mg/dL all other times of the day Blood specimen (specimen) 09/11/2017 7:05 PM EDT 09/11/2017 7:05 PM EDT Pablo Govea MD POINT OF CARE TEST ORDERABLES Performing Organization Address [facility]/ZIP Co de Phone Number [facility] [place] [address] * POCT Glucose (09/11/2017 5:58 PM EDT) POC Glucose 157 65 - 199 mg/dL [facility] Comment: Supplemental ranges: <140 mg/dL before meals <180 mg/dL all other times of the day Blood specimen (specimen) 09/11/2017 5:58 PM EDT 09/11/2017 5:58 PM EDT Pablo Govea MD POINT OF CARE TEST ORDERABLES Performing Organization Address City/[facility] Co de Phone Number [facility] [place] [address] * (ABNORMAL) Hemoglobin (09/11/2017 5:00 PM EDT) Hemoglobin 11.6(L) 13.7 - 16.5 gm/dL [facility] Blood specimen (specimen) 09/11/2017 5:00 PM EDT 09/11/2017 5:25 PM EDT Narrative Resulting Agency Comment Spec In Lab Pablo Govea MD HEMATOLOGY ORDERABL ES Performing Organization Address [facility] Co de Phone Number [facility] [place] [address] * Potassium (09/11/2017 5:00 PM EDT) Potassium 4.1 3.5 - 5.0 mmol/L [facility] Comment: Please note: ??Patients with [...] MD CHEMISTRY ORDERABLE S Performing Organization Address [facility] Co de Phone Number [facility] [place] [address] * (ABNORMAL) BLOOD GAS 2 ARTERIAL (09/11/2017 2:09 PM EDT) pH Art 7.32(L) 7.35 - 7.45 [facility] pCO2 Art 39 35 - 45 mmHg [facility] pO2 Art 101 85 - 104 mmHg [facility] HCO3 Art 19.8(L) 20.0 - 26.0 mmol/L [facility] BE Art -6.2(L) -3.0 - 3.0 mmol/L [facility] Hgb Blood Gas 13.8 13.7 - 16.5 gm/dL [facility] O2HB Art 95.1 94.0 - 97.0 % [facility] COHB Art 0.9 % [facility] Comment: Nonsmokers: 0.5-1.5% COHB Smokers: Variable, but usually less than 10% Toxic: 20-30% COHB Lethal: Greater than 60% COHB METHB Art 0.7 <=1.5 % [facility] Na Whole Blood 138 135 - 145 mmol/L [facility] K Whole Blood 4.1 3.5 - 5.0 mmol/L [facility] Comment: Please note: Patients with WBC >100,000 may have falsely elevated Potassium levels. Contact the Clinical Chemistry Laboratory if there are any questions. ICa Whole Blood 1.23 1.15 - 1.33 mmol/L [facility] Comment: Note: ??Total bilirubin higher than 20 mg/dL may lead to falsely low ionized calcium. CL Whole Blood 111(H) 98 - 107 mmol/L [facility] Gluc Whole Bld 155 65 - 199 mg/dL [facility] Comment:Diabetes: >=200 mg/d L plus symptoms. Lactate WB 1.3 0.5 - 2.2 mmol/L [facility] FIO2 Art 40 % [facility] PF Ratio Art 252 [facility] Blood specimen (specimen) 09/11/2017 2:09 PM EDT 09/11/2017 2:09 PM EDT Pablo Govea MD CHEMISTRY ORDERABLE S Performing Organization Address [facility] Co de Phone Number [facility] [place] [address] * POCT Glucose (09/11/2017 1:33 PM EDT) POC Glucose 138 65 - 199 mg/dL [facility] Comment: Supplemental ranges: <140 mg/dL before meals <180 mg/dL all other times of the day Blood specimen (specimen) 09/11/2017 1:33 PM EDT 09/11/2017 1:33 PM EDT Pablo Govea MD POINT OF CARE TEST ORDERABLES Performing Organization Address City/[facility] Co de Phone Number [facility] [place] [address] * Prepare Albumin 5% in 250 mL (09/11/2017 11:56 AM EDT) Dispensed? Yes [facility] Blood specimen (specimen) No Charge / Unknown 09/11/2017 11:56 AM EDT 09/11/2017 11:58 AM EDT Narrative Resulting Agency Comment Spec In Lab David YE BLOOD BANK LAB O RDERABLES [facility] [place] [address] * (ABNORMAL) BLOOD GAS 2 ARTERIAL (09/11/2017 11:37 AM EDT) pH Art 7.30(L) 7.35 - 7.45 [facility] pCO2 Art 45 35 - 45 mmHg [facility] pO2 Art 260(H) 85 - 104 mmHg [facility] HCO3 Art 21.7 20.0 - 26.0 mmol/L [facility] BE Art -4.7(L) -3.0 - 3.0 mmol/L [facility] Hgb Blood Gas 12.9(L) 13.7 - 16.5 gm/dL [facility] O2HB Art 97.7(H) 94.0 - 97.0 % [facility] COHB Art 0.4 % [facility] Comment: Nonsmokers: 0.5-1.5% COHB Smokers: Variable, but usually less than 10% Toxic: 20-30% COHB Lethal: Greater than 60% COHB METHB Art 0.8 <=1.5 % [facility] Na Whole Blood 138 135 - 145 mmol/L [facility] K Whole Blood 4.0 3.5 - 5.0 mmol/L [facility] Comment: Please note: Patients with WBC >100,000 may have falsely elevated Potassium levels. Contact the Clinical Chemistry Laboratory if there are any questions. ICa Whole Blood 1.21 1.15 - 1.33 mmol/L [facility] Comment: Note: ??Total bilirubin higher than 20 mg/dL may lead to falsely low ionized calcium. CL Whole Blood 112(H) 98 - 107 mmol/L [facility] Gluc Whole Bld 139 65 - 199 mg/dL [facility] Comment:Diabetes: >=200 mg/d L plus symptoms. Lactate WB 1.4 0.5 - 2.2 mmol/L [facility] FIO2 Art 100 % [facility] PF Ratio Art 260 [facility] Blood specimen (specimen) 09/11/2017 11:37 AM EDT 09/11/2017 11:37 AM EDT Pablo Govea MD CHEMISTRY ORDERABLE S Performing Organization Address City/State/[facility] Co de Phone Number [facility] [place] [address] * XR Chest PA or AP 1 [...] EKG 12 Lead (09/11/2017 11:24 AM EDT) Pathologist [facility] Ventricular rate 59 BPM MUSE SYSTEM Atrial Rate 67 BPM MUSE SYSTEM QRS Duration 90 ms MUSE SYSTEM Q-T Interval 428 ms MUSE SYSTEM QTC Calculated (Bezet) 423 ms MUSE SYSTEM Calculated R Magazine 49 degrees MUSE SYSTEM Calculated T Magazine 42 degrees MUSE SYSTEM INTERPRETATION Atrial fibrillation with slow ventricular response T wave abnormality, consider inferior ischemia Abnormal ECG When compared with ECG of 01-SEP-2017 09:11, Atrial fibrillation has replaced Sinus rhythm Confirmed by MD Afia, Albert Zaldivar ([id number]) on 09/11/2017 10:06:48 PM MUSE SYSTEM 09/11/2017 11:2 4 AM EDT 09/11/2017 10:06 PM EDT Pablo Govea MD ECG ORDERABLES MUSE SYSTEM * (ABNORMAL) Thrombin time (09/11/2017 10:15 AM EDT) Pathologist [facility] Thrombin Time 22(H) 15 - 20 sec [facility] Comment: A prolongation in the [...] MD HEMATOLOGY ORDERABL ES Performing Organization Address [facility] de Phone Number [facility] [place] [address] * Fibrinogen (09/11/2017 10:15 AM EDT) Fibrinogen 193 180 - 510 mg/dL [facility] Comment: Called by: ambreen, Read back by: Molly Villavicencio, Date/Time:09/11/17 10:36. A fibrinogen level >100 mg/dL is adequate for hemostasis in most patients without underlying bleeding disorders. Blood specimen (specimen) 09/11/2017 10:15 AM EDT 09/11/2017 10:19 AM EDT Narrative Resulting Agency Comment Spec In Lab Pablo Govea MD HEMATOLOGY ORDERABL ES Performing Organization Address [facility] de Phone Number [facility] [place] [address] * APTT (09/11/2017 10:15 AM EDT) PTT 34 25 - 35 sec [facility] Comment: The recommended therapeutic range for full dose, unfractionated heparin at [facility] is 80 ? 114 seconds. The use of the anti-Xa (heparin) level rather than the PTT is recommended for monitoring anticoagulation intensity in critically ill patients receiving unfractionated heparin by continuous IV infusion. Blood specimen (specimen) 09/11/2017 10:15 AM EDT 09/11/2017 10:19 AM EDT Narrative Resulting Agency Comment Spec In Lab Pablo Govea MD HEMATOLOGY ORDERABL ES Performing Organization Address [facility] de Phone Number [facility] [place] [address] * (ABNORMAL) Prothrombin Time (09/11/2017 10:15 AM EDT) PT 17.5(H) 11.8 - 14.0 sec [facility] INR 1.5(H) 0.9 - 1.1 [facility] Comment: An INR <2.0 indicates adequate [...] Lab Pablo Govea MD HEMATOLOGY ORDERABL ES [facility] [place] [address] * (ABNORMAL) Hemogram (09/11/2017 10:15 AM EDT) WBC 9.3 4.0 - 9.5 x10(3)/[facility] LABORATORY RBC 3.32(L) 4.58 - 5.54 x10(6)/[facility] LABORATORY Hemoglobin 10.0(L) 13.7 - 16.5 gm/dL [facility] Hematocrit 30.3(L) 40.5 - 48.5 % [facility] Comment: This result has been called to ADWOA ORELLANA by RO LOVE on 09 11 2017 at 1028, and has been read back. MCV 91.3 82.9 - 93.1 fL [facility] MCH 30.1 27.5 - 32.1 pg [facility] MCHC 33.0 32.0 - 35.7 gm/dL [facility] Platelets 161 145 - 357 x10(3)/[facility] LABORATORY RDWSD 43.3 36.0 - 45.0 fL [facility] RDWCV 13.0 11.4 - 13.8 % [facility] MPV 9.4 7.6 - 12.9 fL [facility] nRBC % Auto 0.0 % [facility] nRBC Abs Auto 0.000 0.000 - 0.000 x10(3)/mcL [facility] Blood specimen (specimen) 09/11/2017 10:15 AM EDT 09/11/2017 10:19 AM EDT Narrative Resulting Agency Comment Spec In Lab Pablo Govea MD HEMATOLOGY ORDERABL ES [facility] [place] [address] * (ABNORMAL) BLOOD GAS 2 ARTERIAL (09/11/2017 10:13 AM EDT) pH Art 7.29(Criti krishna) 7.35 - 7.45 [facility] Comment:Noted by director of instrumental music. pCO2 Art 45 35 - 45 mmHg [facility] pO2 Art 87 85 - 104 mmHg [facility] HCO3 Art 21.3 20.0 - 26.0 mmol/L [facility] BE Art -5.3(L) -3.0 - 3.0 mmol/L [facility] Hgb Blood Gas 10.7(L) 13.7 - 16.5 gm/dL [facility] O2HB Art 94.1 94.0 - 97.0 % [facility] COHB Art 0.3 % [facility] Comment: Nonsmokers: 0.5-1.5% COHB Smokers: Variable, but usually less than 10% Toxic: 20-30% COHB Lethal: Greater than 60% COHB METHB Art 0.3 <=1.5 % [facility] Na Whole Blood 136 135 - 145 mmol/L [facility] K Whole Blood 4.2 3.5 - 5.0 mmol/L [facility] Comment: Please note: Patients with WBC >100,000 may have falsely elevated Potassium levels. Contact the Clinical Chemistry Laboratory if there are any questions. ICa Whole Blood 1.22 1.15 - 1.33 mmol/L [facility] Comment: Note: ??Total bilirubin higher than 20 mg/dL may lead to falsely low ionized calcium. CL Whole Blood 110(H) 98 - 107 mmol/L [facility] Gluc Whole Bld 165 65 - 199 mg/dL [facility] Comment:Diabetes: >=200 mg/d L plus symptoms. Lactate WB 1.8 0.5 - 2.2 mmol/L [facility] Blood specimen (specimen) 09/11/2017 10:13 AM EDT 09/11/2017 10:13 AM EDT Pablo Govea MD CHEMISTRY ORDERABLE S [facility] [place] [address] * (ABNORMAL) BLOOD GAS 2 ARTERIAL (09/11/2017 9:36 AM EDT) pH Art 7.30(L) 7.35 - 7.45 [facility] pCO2 Art 45 35 - 45 mmHg [facility] pO2 Art 227(H) 85 - 104 mmHg [facility] HCO3 Art 21.5 20.0 - 26.0 mmol/L [facility] BE Art -4.9(L) -3.0 - 3.0 mmol/L [facility] Hgb Blood Gas 10.6(L) 13.7 - 16.5 gm/dL [facility] O2HB Art 98.5(H) 94.0 - 97.0 % [facility] COHB Art 0.3 % [facility] Comment: Nonsmokers: 0.5-1.5% COHB Smokers: Variable, but usually less than 10% Toxic: 20-30% COHB Lethal: Greater than 60% COHB METHB Art 0.3 <=1.5 % [facility] Na Whole Blood 134(L) 135 - 145 mmol/L [facility] K Whole Blood 4.6 3.5 - 5.0 mmol/L [facility] Comment: Please note: Patients with WBC >100,000 may have falsely elevated Potassium levels. Contact the Clinical Chemistry Laboratory if there are any questions. ICa Whole Blood 1.07(L) 1.15 - 1.33 mmol/L [facility] Comment: Note: ??Total bilirubin higher than 20 mg/dL may lead to falsely low ionized calcium. CL Whole Blood 107 98 - 107 mmol/L [facility] Gluc Whole Bld 183 65 - 199 mg/dL [facility] Comment:Diabetes: >=200 mg/d L plus symptoms. Lactate WB 1.8 0.5 - 2.2 mmol/L [facility] Blood specimen (specimen) 09/11/2017 9:36 AM EDT 09/11/2017 9:36 AM EDT Pablo Govea MD CHEMISTRY ORDERABLE S Performing Organization Address City/State/[facility] Co de Phone Number [facility] [place] [address] * Platelet count (09/11/2017 9:30 AM EDT) Platelets 176 145 - 357 x10(3)/mc L [facility] Plat Immature % 1.4 0.0 - 7.4 % [facility] Comment: Limitation of the Immature Platelet Fraction (IPF)-May be less reliable when the platelet count is less than 01s220/uL due to statistical imprecision. The IPF value [...] in a decreased state of production. References: [employer] [place] The Clinical Value of the Immature Platelet Fraction (IPF) in Cell Recovery Document Number 10-1143 11/2010 [employer] The Role of the Immature Platelet Fraction (IPF) in the Differential Diagnosis of Thrombocytopenia, Document [id number] V05 P011/06 Blood specimen (specimen) 09/11/2017 9:30 AM EDT 09/11/2017 9:38 AM EDT Narrative Resulting Agency Comment Spec In Lab Pablo Govea MD HEMATOLOGY ORDERABL ES Performing Organization Address [facility] de Phone Number [facility] [place] [address] * (ABNORMAL) Hemoglobin and Hematocrit, blood (09/11/2017 9:30 AM EDT) Hemoglobin 9.9(L) 13.7 - 16.5 gm/dL [facility] Hematocrit 29.2(L) 40.5 - 48.5 % [facility] Comment: This result has been called to MOMO VILLAVICENCIO by DILLAN NASCIMENTO on 09 11 2017 at 0954, and has been read back. Blood specimen (specimen) 09/11/2017 9:30 AM EDT 09/11/2017 9:38 AM EDT Narrative Resulting Agency Comment Spec In Lab Pablo Govea MD HEMATOLOGY ORDERABL ES Performing Organization Address [facility] Co de Phone Number [facility] [place] [address] * Fibrinogen (09/11/2017 9:30 AM EDT) Fibrinogen 182 180 - 510 mg/dL [facility] Comment: Called by: eds, Read back by: Molly Villavicencio, Date/Time:09/11/17 09:51. A fibrinogen level >100 mg/dL is adequate for hemostasis in most patients without underlying bleeding disorders. Blood specimen (specimen) 09/11/2017 9:30 AM EDT 09/11/2017 9:38 AM EDT Narrative Resulting Agency Comment Spec In Lab Pablo Govea MD HEMATOLOGY ORDERABL ES [facility] [place] [address] * (ABNORMAL) BLOOD GAS 2 ARTERIAL (09/11/2017 9:15 AM EDT) pH Art 7.31(L) 7.35 - 7.45 [facility] pCO2 Art 46(H) 35 - 45 mmHg [facility] pO2 Art 317(H) 85 - 104 mmHg [facility] HCO3 Art 22.2 20.0 - 26.0 mmol/L [facility] BE Art -4.1(L) -3.0 - 3.0 mmol/L [facility] Hgb Blood Gas 10.8(L) 13.7 - 16.5 gm/dL [facility] O2HB Art 98.5(H) 94.0 - 97.0 % [facility] COHB Art 0.3 % [facility] Comment: Nonsmokers: 0.5-1.5% COHB Smokers: Variable, but usually less than 10% Toxic: 20-30% COHB Lethal: Greater than 60% COHB METHB Art 0.3 <=1.5 % [facility] Na Whole Blood 134(L) 135 - 145 mmol/L [facility] K Whole Blood 5.0 3.5 - 5.0 mmol/L [facility] Comment: Please note: Patients with WBC >100,000 may have falsely elevated Potassium levels. Contact the Clinical Chemistry Laboratory if there are any questions. ICa Whole Blood 0.96(L) 1.15 - 1.33 mmol/L [facility] Comment: Note: ??Total bilirubin higher than 20 mg/dL may lead to falsely low ionized calcium. CL Whole Blood 106 98 - 107 mmol/L [facility] Gluc Whole Bld 188 65 - 199 mg/dL [facility] Comment:Diabetes: >=200 mg/d L plus symptoms. Lactate WB 1.5 0.5 - 2.2 mmol/L [facility] Blood specimen (specimen) 09/11/2017 9:15 AM EDT 09/11/2017 9:15 AM EDT Pablo Govea MD CHEMISTRY ORDERABLE S [facility] [place] [address] * (ABNORMAL) BLOOD GAS 2 ARTERIAL (09/11/2017 8:12 AM EDT) pH Art 7.35(L) 7.35 - 7.45 [facility] pCO2 Art 41 35 - 45 mmHg [facility] pO2 Art 148(H) 85 - 104 mmHg [facility] HCO3 Art 22.3 20.0 - 26.0 mmol/L [facility] BE Art -3.3(L) -3.0 - 3.0 mmol/L [facility] Hgb Blood Gas 13.1(L) 13.7 - 16.5 gm/dL [facility] O2HB Art 97.8(H) 94.0 - 97.0 % [facility] COHB Art 0.6 % [facility] Comment: Nonsmokers: 0.5-1.5% COHB Smokers: Variable, but usually less than 10% Toxic: 20-30% COHB Lethal: Greater than 60% COHB METHB Art 0.1 <=1.5 % [facility] Na Whole Blood 140 135 - 145 mmol/L [facility] K Whole Blood 3.9 3.5 - 5.0 mmol/L [facility] Comment: Please note: Patients with WBC >100,000 may have falsely elevated Potassium levels. Contact the Clinical Chemistry Laboratory if there are any questions. ICa Whole Blood 1.23 1.15 - 1.33 mmol/L [facility] Comment: Note: ??Total bilirubin higher than 20 mg/dL may lead to falsely low ionized calcium. CL Whole Blood 110(H) 98 - 107 mmol/L [facility] Gluc Whole Bld 118 65 - 199 mg/dL [facility] Comment:Diabetes: >=200 mg/d L plus symptoms. Lactate WB 2.1 0.5 - 2.2 mmol/L [facility] FIO2 Art 70 % [facility] PF Ratio Art 211 [facility] Blood specimen (specimen) 09/11/2017 8:12 AM EDT 09/11/2017 8:12 AM EDT Pabol Govea MD CHEMISTRY ORDERABLE S Performing Organization Address [facility] Co de Phone Number [facility] [place] [address] * Prepare RBC (09/11/2017 6:30 AM EDT) Dispensed? 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 S/P CABG x 2 Postsurgical aortocoronary bypass status documented in this encounter Admitting Diagnoses Diagnosis 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 documented in this encounter Administered Medications Inactive Administered Medications - up to 3 most recent administrations Medication Order MAR Action Action Date Dose Rate Site acetaminophen (OFIRMEV) injection 1,000 mg 1,000 mg, Intravenous, at 400 mL/hr, Administer over 15 Minutes, EVERY 6 HOURS SCHEDULED, 4 doses, First dose on Mon09/11/17 at 1200, Last dose on Mon09/12/17 at 0600, Maximum dose of acetaminophen is 4000 mg from all sources in 24 hours., Routine, Is ketorolac (Toradol) IV contraindicated? No, Can this patient tolerate oral medications or suppositories? No Given 09/12/2017 8:45 AM EDT 1,000 mg 400 mL/hr Given 09/12/2017 3:26 AM EDT 1,000 mg 400 mL/hr Given 09/11/2017 10:00 PM EDT 1,000 mg 400 mL/hr acetaminophen (TYLENOL) tablet 1,000 mg 1,000 mg, Oral, EVERY 6 HOURS SCHEDULED, First dose on Mon09/12/17 at 1200, Until Discontinued, For pain when taking by mouth , Routine Given 09/15/2017 9:25 AM EDT 1,000 mg Given 09/15/2017 4:08 AM EDT 1,000 mg Given 09/14/2017 8:18 PM EDT 1,000 mg albumin, human 5% intravenous solution 25 g 25 g, Intravenous, ONCE, 1 dose, On Mon09/11/17 at 1130, PRN as needed for volume replacement to maintain cardiac index greater than or equal to 2.0 L/min/M2, Recovery (Recovery-Hospital Unit), STAT Given 09/11/2017 12:30 PM EDT 12.5 g AMIOdarone (CORDARONE) 360 mg in dextrose 5% 200 mL infusion 0.5-1 mg/min (16.6667-33.3333 mL/hr, rounded to 16.7-33.3 mL/hr), Intravenous, CONTINUOUS, Starting on Mon09/13/17 at 2200, Until Kimberly 09/14/17 at 2200, Initiate loading infusion (slow): 1 mg/minute over 6 hours, then decrease to maintenance Infusion: 0.5 mg/minute over 18 hours. At 24 hours from start time, call MD regarding infusion or change to oral dosing. Rate/Dose Change 09/14/2017 5:00 AM EDT 0.5 mg/min 16.7 mL/hr New Bag 09/14/2017 1:44 AM EDT 1 mg/min 33.3 mL/hr New Bag 09/13/2017 10:53 PM EDT 1 mg/min 33.3 mL/hr AMIOdarone (CORDARONE) bolus from bag 150 mg 150 mg, Intravenous, Administer over 30 Minutes, ONCE, 1 dose, On Mon09/13/17 at 2200, Rapid Load. Bolus from Bag, Routine Bolus from Bag 09/13/2017 10:23 PM EDT 150 mg AMIOdarone (CORDARONE; PACERONE) tablet 200 mg 200 mg, Oral, 2 TIMES DAILY, First dose on Kimberly 09/14/17 at 2100, Until Discontinued, Routine Given 09/15/2017 [...] on Mon09/11/17 at 1615, Until Discontinued, Give MT if unable to take PO, Routine Given 09/11/2017 9:15 PM EDT 300 mg chlorhexidine (PERIDEX) 0.12 % oral solution 15 mL 15 mL, Oral, EVERY 12 HOURS SCHEDULED (2 times per day), First dose on Mon09/11/17 at 1130, Until Discontinued, [place] teeth, Routine Given 09/12/2017 8:19 AM EDT 15 mLs Given 09/11/2017 10:00 PM EDT 15 mLs Given 09/11/2017 12:12 PM EDT 15 mLs fentaNYL 50 mcg/mL infusion 0-100 mcg/hr (0-2 mL/hr), Intravenous, CONTINUOUS, Starting on Mon09/11/17 at 1130, Until Mon09/12/17 at 1033, Titrate to patient comfort, pain scale 1-3. Start at 25 mcg/hr, adjust by 25 mcg/hr every 15 minutes. Dose not to exceed 100 mcg/hour. Rate/Dose Verify 09/11/2017 5:00 PM EDT 25 mcg/hr 0.5 mL/hr Rate/Dose Verify 09/11/2017 4:00 PM EDT 25 mcg/hr 0.5 mL/ hr Rate/Dose Change 09/11/2017 2:30 PM EDT 25 mcg/hr 0.5 mL/ hr fentaNYL bolus from bag 25 mcg 25 mcg, Intravenous, EVERY 10 MIN PRN, Starting on Mon09/11/17 at 1109, Until Mon09/12/17 at 1033, Pain, For breakthrough pain (pain scale greater than 3), while intubated, Maximum dose 300 mcg over one hour., Routine Bolus from Bag 09/11/2017 1:44 PM EDT 25 mcg Bolus from Bag 09/11/2017 1:15 PM EDT 25 mcg Bolus from Bag 09/11/2017 1:00 PM EDT 25 mcg furosemide (LASIX) injection 20 mg 20 mg, Intravenous, 2 TIMES DAILY, First dose on Mon09/12/17 at 1700, Until Discontinued Given 09/15/2017 9:26 AM EDT 2 0 mg Given 09/14/2017 5:18 PM EDT 20 mg Given 09/14/2017 8:35 AM EDT 20 mg HYDROmorphone (DILAUDID) injection 0.2 mg 0.2 mg, Intravenous, EVERY 2 HOURS PRN, Starting on Mon09/11/17 at 1513, Until Mon09/12/17 at 1033, Pain, Give hydromorphone prn pain in place of fentanyl to determine if fentanyl is primary cause of nausea/vomiting. If improves on hydromorphone, will dc fentanyl. If no improvement, will dc hydromorphone order., Routine Given 09/11/2017 9:16 PM EDT 0.2 mg insulin lispro (humaLOG) VIAL injection 1-4 Units 1-4 Units, Subcutaneous, 3 TIMES DAILY BEFORE [...] unless specifically told to do so., Routine Given 09/13/2017 7:55 AM EDT 1 Units lidocaine (URO-JET) 2 % gel 10 mL 10 mL, INTRA-URETHRAL, ONCE, 1 dose, On Mon09/12/17 at 0915, Routine Given 09/12/2017 9:15 AM EDT 10 mLs magnesium hydroxide (MILK OF MAGNESIA) oral suspension 10 mL 10 mL, Oral, DAILY, First dose on Mon09/13/17 at 0900, Until Discontinued, Post-op day 2. Do not use with renal insufficiency., Routine Given 09/13/2017 9:20 AM EDT 10 mLs magnesium sulfate 2 g in sterile water 50 mL 2 g, Intravenous, ONCE, 1 dose, On Mon09/13/17 at 2200, Administer over 120 Minutes New Bag 09/13/2017 10:25 PM EDT 2 g 25 mL/hr magnesium sulfate 2 g in sterile water 50 mL 2 g, Intravenous, ONCE, 1 dose, On Mon09/14/17 at 1315, Administer over 120 Minutes New Bag 09/14/2017 1:19 PM EDT 2 g 25 mL/hr meTOPROLOL (LOPRESSOR) tablet 12.5 mg 12.5 mg, Oral, EVERY 12 HOURS SCHEDULED (2 times per day), First dose on Mon09/12/17 at 0900, Until Discontinued, Routine Given 09/12/2017 9:14 PM EDT 12.5 mg Given 09/12/2017 9:37 AM EDT 12.5 mg meTOPROLOL tartrate (LOPRESSOR) tablet 25 mg 25 mg, Oral, EVERY 12 HOURS SCHEDULED (2 times per day), First dose (after last modification) on Mon09/13/17 at 0900, Until Discontinued, Routine Given 09/14/2017 8:26 AM EDT 25 mg Given 09/13/2017 8:08 PM EDT 25 mg Given 09/13/2017 9:25 AM EDT 25 mg meTOPROLOL tartrate (LOPRESSOR) tablet 25 mg 25 mg, Oral, EVERY 8 HOURS SCHEDULED, First dose (after last modification) on Mon09/14/17 at 1400, Until Discontinued, Routine Given 09/15/2017 5:02 AM EDT 25 mg Given 09/14/2017 9:39 PM EDT 25 mg Given 09/14/2017 1:19 PM EDT 25 mg nitroGLYcerin 50 mg in dextrose 5% 250 mL infusion 0-200 mcg/min (0-60 mL/hr), Intravenous, CONTINUOUS, Starting on Mon09/11/17 at 1130, Until Mon09/12/17 at 1033, For hypertension. Titrate to keep systolic blood pressure less than 130 mmHg. Initiate at 25 mcg/min. Adjust by 25 mcg/min every 5 minutes. Dose not to exceed 200 mcg/minute., Routine Rate/Dose Change 09/12/2017 6:25 AM EDT 50 mcg/min 15 mL/hr Rate/Dose Change 09/12/2017 6:01 AM EDT 100 mcg/min 30 mL/ hr Rate/Dose Change 09/12/2017 5:55 AM EDT 75 mcg/min 22.5 mL /hr NORepinephrine 16 mcg/mL (standard ADULT and Pedi greater than 20 kg) infusion 0-30 mcg/min (0-112.5 mL/hr), Intravenous, CONTINUOUS, Starting on Mon09/11/17 at 1130, Until Mon09/12/17 at 1033, Titrate to keep systolic blood pressure greater than 90 mmHg. Start at 2 mcg/minute and adjust by 2 mcg/min every 3 minutes. Dose not to exceed 30 mcg/minute. Begin if phenyleprine and/or vasopressin ineffective.Call pager # [phone] if initiated., Routine Rate/Dose Change 09/11/2017 6:00 PM EDT 3 mcg/min 11.3 mL/hr Continued Bag 09/11/2017 5:00 PM EDT 5 mcg/min 18.8 mL/hr Rate/Dose Verify 09/11/2017 3:00 PM EDT 3 mcg/min 11.3 mL /hr ondansetron (ZOFRAN) injection 4 mg 4 mg, Intravenous, EVERY 8 HOURS PRN, Starting on Mon09/11/17 at 1109, Until Mon09/11/17 at 1506, Nausea Given 09/11/2017 1:47 PM EDT 4 mg ondansetron (ZOFRAN) injection 4 mg 4 mg, Intravenous, ONCE, 1 dose, On Mon09/11/17 at 1545 Given 09/11/2017 3:29 PM EDT 4 mg ondansetron (ZOFRAN) injection 8 mg 8 [...] Given 09/13/2017 9:24 AM EDT 40 mg potassium chloride (K-DUR/KLOR-CON) extended release tablet 40 mEq 40 mEq, Oral, 2 TIMES DAILY, 2 doses, First dose (after last modification) on Kimberly 09/14/17 at 0900, Last dose on Mon09/15/17 at 0700, Routine Given 09/14/2017 8:27 AM EDT 40 mEq potassium chloride (K-DUR/KLOR-CON) extended release tablet 40 mEq 40 mEq, Oral, 2 TIMES DAILY, 1 dose, First dose (after last modification) on [facility] 09/14/17 at 1515, Routine Given 09/14/2017 5:26 PM EDT 40 mEq potassium chloride (K-DUR/KLOR-CON) extended release tablet 40 mEq 40 mEq, Oral, ONCE, 1 dose, On Mon09/15/17 at 0930, Routine Given 09/15/2017 10:39 AM EDT 40 mEq propofol (DIPRIVAN) infusion 0-50 mcg/kg/min ? 130 kg (0-39 mL/hr), Intravenous, CONTINUOUS, Starting on Mon09/11/17 at 1130, Until Mon09/11/17 at 1515, Titrate to sedation level of RASS Goal (-) 1. Start at 10 mcg/kg/min, adjust rate by 5 mcg/kg/min every 3 minutes. Dose not to exceed 50 mcg/kg/minute. Discontinue upon extubation., Routine Rate/Dose Change 09/11/2017 12:30 PM EDT 20 mcg/kg/min 15.6 mL/hr Continued Bag 09/11/2017 11:00 AM EDT 40 mcg/kg/min 31.2 m L/hr senna-docusate (PERICOLACE) 8.6-50 mg per tablet 2 tablet 2 tablet, Oral, DAILY, First dose on Mon09/12/17 at 2100, Until Discontinued, Post-op day 1, Routine Given 09/12/2017 9:13 PM EDT 2 tablets simvastatin (ZOCOR) tablet 20 mg 20 mg, Oral, NIGHTLY, First dose (after last modification) on Kimberly 09/14/17 at 2100, Until Discontinued Given 09/14/2017 8:18 PM EDT 20 mg simvastatin (ZOCOR) tablet 40 mg 40 mg, Oral, NIGHTLY, First dose on Mon09/11/17 at 2100, Until Discontinued Given 09/13/2017 8:08 PM EDT 40 mg Given 09/12/2017 9:49 PM EDT 40 mg sodium chloride 0.9 % flush 5 mL 5 mL, Intravenous, EVERY 8 HOURS, First dose on Mon09/12/17 at 1100, Until Discontinued, Routine Given 09/15/2017 3:00 AM EDT 5 mLs Given 09/14/2017 7:00 PM EDT 5 mLs Given 09/14/2017 11:00 AM EDT 5 mLs sodium chloride 0.9% infusion 0-500 mL/hr, Intravenous, CONTINUOUS, Starting on Mon09/11/17 at 1130, Until Mon09/12/17 at 1033, Bolus 250 mL every 5 minutes as needed for volume replacement to maintain cardiac index greater than or equal to 2.0 L/min/M2. Maximum volume 2 L. Call executive housekeeper for additional fluid orders: pager #[phone]. New Bag 09/11/2017 11:00 AM EDT 100 mL/hr 100 mL/hr sodium chloride 0.9% infusion 10-30 mL/hr, Intravenous, DAILY PRN, Starting on Mon09/11/17 at 1109, Until Mon09/12/17 at 1033, Side port TKO rate, per [facility] nursing protocol. Rate/Dose Verify 09/11/2017 10:00 PM EDT 30 mL/hr 30 mL/hr Rate/Dose Verify 09/11/2017 8:20 PM EDT 30 mL/hr 30 mL/h r Rate/Dose Verify 09/11/2017 7:00 PM EDT 30 mL/hr 30 mL/h r sodium chloride 0.9% infusion 10-30 mL/hr, Intravenous, DAILY PRN, Starting on Mon09/11/17 at 1109, Until Mon09/12/17 at 1033, Side port TKO rate, per [facility] nrusing protocol. Rate/Dose Verify 09/12/2017 10:00 AM EDT 30 mL/hr 30 mL/hr Rate/Dose Verify 09/12/2017 8:00 AM EDT 30 mL/hr 30 mL/h r Rate/Dose Verify 09/12/2017 4:00 AM EDT 30 mL/hr 30 mL/h r documented in this encounter Active and Recently Administered Medications Times are shown in EDT. Scheduled Medication Order 09/13/2017 09/14/2017 09/15/2017 acetaminophen (TYLENOL) tablet 1,000 mg 1,000 mg, Oral, EVERY 6 HOURS SCHEDULED, First dose on Mon09/12/17 at 1200, Until Discontinued, For pain when taking by mouth , Routine 0402 (Given - Provider: Belgica Olson RN)0924 (Given - Provider: Mara Hood RN)1632 (Given - Provider: Mara Hood RN)2007 (Not Given - Provider: Mar Nash RN - Reason: Patient/family refused) 0542 (Given - Provider: Mar Nash RN)1031 (Given - Provider: Mara Hood RN)1725 (Given - Provider: Mara Hood RN)2018 (Given - Provider: Elías Smith RN) 0408 (Given - Provider: Юлия Chacon, LENY)0925 (Given - Provider: Mara Hood, LENY) AMIOdarone (CORDARONE) bolus from bag 150 mg (COMPLETED)(Linked Group 1) 150 mg, Intravenous, Administer over 30 Minutes, ONCE, 1 dose, On Mon09/13/17 at 2200, Rapid Load. Bolus from Bag, Routine 2223 (Bolus from Bag - Provider: Mar Nash RN) AMIOdarone (CORDARONE; PACERONE) tablet 200 mg 200 mg, Oral, 2 TIMES DAILY, First dose on Mon09/14/17 at 2100, Until Discontinued, Routine 2019 (Given - Provider: Elías Smith RN - Comment: .47) 09 (Given - Provider: Mara Hood RN - Comment: QTC .46) aspirin chewable tablet 81 mg(Linked Group 2) 81 mg, Oral, DAILY, First dose (after last modification) on Mon09/11/17 at 1615, Until Discontinued, Routine 0925 (Given - Provider: Mara Hood RN) 0828 (Given - Provider: Mara Hood RN) 09 (Given - Provider: Mara Hood, LENY) aspirin suppository 300 mg(Linked Group 2) 300 mg, Rectal, DAILY, First dose (after last modification) on Mon09/11/17 at 1615, Until Discontinued, Give MT if unable to take PO, Routine 924 (See Alternative - Provider: Mara Hood RN) 08 (See Alternative - Provider: Mara Hood RN) 09 (See Alternative - Provider: Mara Hood RN) furosemide (LASIX) injection 20 mg 20 mg, Intravenous, 2 TIMES DAILY, First dose on Mon09/12/17 at 1700, Until Discontinued 09 (Given - Provider: Mara Hood RN)1633 (Given - Provider: Mara Hood RN) 0835 (Given - Provider: Mara Hood, LENY)1718 (Given - Provider: Mara Hood, LENY) 09 (Given - Provider: Mara Hood RN) [...] Juan Pinzon RN)1519 (Stopped - Provider: Mara Hood RN) meTOPROLOL tartrate (LOPRESSOR) tablet 25 mg (CANCELED) 25 mg, Oral, EVERY 12 HOURS SCHEDULED (2 times per day), First dose (after last modification) on Mon09/13/17 at 0900, Until Discontinued, Routine 0925 (Given - Provider: Mara Hood RN)2007 (Given - Provider: Mar Nash RN) 08 (Given - Provider: Mara Hood RN) meTOPROLOL tartrate (LOPRESSOR) tablet 25 mg 25 mg, Oral, EVERY 8 HOURS SCHEDULED, First dose (after last modification) on Mon09/14/17 at 1400, Until Discontinued, Routine 1319 (Given - Provider: Juan Pinzon RN)2139 (Given - Provider: Юлия Chacon RN) 050 (Given - Provider: Юлия Chacon RN) pantoprazole (PROTONIX) injection 40 mg(Linked Group 4) 40 mg, Intravenous, DAILY, First dose on Mon09/11/17 at 1130, Until Discontinued, Reconstitute with 10 mL of normal saline to a concentration of 4 mg/mL and infuse slowly over 2 minutes. , Routine 0924 (See Alternative - Provider: Mara Hood RN) 0828 (See Alternative - Provider: Mara Hood RN) 09 (See Alternative - Provider: Mara Hood RN) pantoprazole (PROTONIX) tablet 40 mg(Linked Group 4) [...] on Kimberly 09/14/17 at 2100, Until Discontinued 2017 (Given - Provider: Elías Smith, RN) simvastatin (ZOCOR) tablet 40 mg (CANCELED) [...] - Reason: Contraindicated)2007 (Given - Provider: Mar Nash RN) 0300 (Not Given - Provider: Mar Nash RN - Reason: Order parameters not met - Comment: IV infusing)1100 (Given - Provider: Mara Hood, LENY)1900 (Given - Provider: Elías Smith, LENY) 0300 [...] oral dosing. 2253 (New Bag - Provider: Mra Nash RN) 0144 (New Bag - Provider: Mar Nash RN)0500 (Rate/Dose Change - Provider: Mar Nash RN)6089 (Stopped - Provider: Elías Smith RN) PRN [...] Oral, EVERY 4 HOURS PRN, Starting on Mon09/11/17 at 1109, Until Mon09/15/17 at 1254, Pain, [...] on Mon09/11/17 at 1615, Until Discontinued, Give MT if unable to take PO, Routine Group [...] Routine documented in this encounter Care Teams Lead Caster Relationship Specialty Start Date End Date Devorah Epstein MD [address] [place] [address] PCP - General Family Medicine 09/01/17 documented as of this encounter
--- OUTSIDE RECORDS SUMMARY | 2024-01-22 03:02 | XMS_ITS | Encounter Summary ---
Author Organization [facility] [place] [address] Care Team Providers Care Kindergartners Helper Name Role Phone Devorah Epstein MD Primary Care Provider [phone] Encounter Details Date Type Department Care Team (Latest Contact Info) Description 09/01/2017 Unscheduled Encounter Cardiology at [address] [address] Pablo Govea MD [facility] [place] [address] Atherosclerosis of [place] coronary artery of [place] heart with angina pectoris Social History Tobacco Use Types Packs/Day Years Used Date Smoking Tobacco: Former Smokeless Tobacco: Never Alcohol Use Standard Drinks/Week Comments No 0 (1 standard drink = 0.6 oz pur e alcohol) Sex and Gender Information Value Date Recorded Sex Assigned at Not on file Gender Identity Not on file Sexual Orientation Not on file documented as of this encounter Progress Notes * Pablo Govea MD - 09/01/2017 1:55 PM EST Cardiac surgery new patient visit This is a patient of Dr. Marie that we are seeing for consideration of CABG surgery. This is a 77-year-old male who had been having symptoms of dyspnea on exertion who had a stress test done at [facility] that revealed moderate risk for a cardiac event. In light of his symptoms and his positive stress test moved on to a cardiac catheterization which was positive. He currently is having no symptoms of angina. His symptoms are brought on by minimal amounts of activity and relieved with rest. He currently does not have symptoms at rest. His past medical history significant for hypertension and hyperlipidemia His past surgical history has a pertinent negative of no previous thoracic procedures or vein strippings. He has no known drug allergies He is afebrile his vital signs are stable He is normocephalic atraumatic He has no jugular venous distention at 45?? 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 I seen his cardiac catheterization he has significant disease of his LAD and its obtuse marginal. These are both good targets. His RCA is heavily calcified but there is no significant disease read bythe malthouse laborer. Impression 77-year-old gentleman who is a reasonable [...] appeared to be no barriers to learning The plan is CABG surgery unless his symptoms accelerate he will remain outpatient. This was a 30 minute visit 20 minutes were spent [id number] discussing the risks and benefits of CABG surgery documented in this encounter Plan of Treatment Upcoming Encounters Date Type Department Care Team (Late st Contact Info) Description 03/28/2024 10:00 AM EDT Hospital Encounter Non[place] [address] Arrived documented as of this encounter Procedures Procedure Name Priority Date/Time Associated Diagnosis Comments ENDOSCOPIC HARVEST VEIN(S) FOR CABG Routine 09/01/2017 1:59 PM EST Atherosclerosis of [place] coronary artery of [place] heart with angina pectoris @CABG,USING ARTERIAL GRAFT;SINGLE ARTERIAL GRAFT Routine 09/01/2017 1:59 PM EST Atherosclerosis of [place] coronary artery of [place] heart with angina pectoris @CABG,VENOUS & ARTERIAL GRAFT;SINGLE VEIN GRAFT Routine 09/01/2017 1:59 PM EST Atherosclerosis of [place] coronary artery of [place] heart with angina pectoris documented in this encounter Results * XR Chest PA & Lateral (Generic) (09/01/2017 3:54 PM EST) Anatomical Region Laterality Modality Chest N/A Digital Radiogra phy Impressions 09/01/2017 4:39 PM EST Tortuous aorta. Clear lungs. Narrative 09/01/2017 4:39 PM EST EXAMINATION: XR CHEST PA AND LATERAL (GENERIC) CLINICAL HISTORY: preop TECHNIQUE: Frontal and lateral upright radiographs of the chest were obtained COMPARISON: None FINDINGS: Cardiac silhouette is normal in size. The aorta is tortuous and calcified. There is no pleural effusion. There is no evidence of pneumothorax. There is no focal pulmonary consolidation. 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 There are postsurgical changes of the bilateral distal clavicle resection. There are degenerative changes of the thoracic spine. Procedure Note Belgica Luna MD - 09/01/2017 EXAMINATION: XR CHEST PA AND LATERAL (GENERIC) CLINICAL HISTORY: preop TECHNIQUE: Frontal and lateral upright radiographs of the chest were obtained COMPARISON: None FINDINGS: Cardiac silhouette is normal in size. The aorta is tortuous and calcified.There is no pleural effusion. There is no evidence of pneumothorax. There is nofocal pulmonary consolidation. There is bilateral glenohumeral jointosteoarthropathy, partly imaged. There are postsurgical changes of the bilateral distalclavicle resection. There are degenerative changes of the thoracic spine. IMPRESSION Tortuous aorta. Clear lungs. Pablo Govea MD IMG DX ORDERABLES * (ABNORMAL) Basic Metabolic Panel (non-fasting) (09/01/2017 3:15 PM EST) Glucose Lvl 119 65 - 199 mg/dL [facility] Comment:Diabetes: >=200 mg/d L plus symptoms BUN 21(H) 10 - 20 mg/dL [facility] Creatinine 1.12 0.80 - 1.50 mg/dL [facility] Sodium 141 135 - 145 mmol/L [facility] Potassium 3.9 3.5 - 5.0 mmol/L [facility] Comment: Please note: ??Patients with WBC >100,000 may have falsely elevated Potassium levels. ??For accurate Potassium quantification in these patients send serum separator tube (gold top) for subsequent determinations. ??Contact the Clinical Chemistry Laboratory if there are any questions. Chloride 103 98 - 107 mmol/L [facility] CO2 24 22 - 31 mmol/L [facility] Anion Gap 14 5 - 15 mmol/L [facility] Calcium 10.1 8.5 - 10.5 mg/dL [facility] Estimated GFR >60 >=60 [facility] Comment: The reported eGFR should be multiplied by 1.2 for patients. The MDRD is not an appropriate measure of renal function for patients with body mass extremes or in patients with acute kidney failure. 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
--- OUTSIDE RECORDS SUMMARY | 2024-01-22 03:02 | XMS_ITS | Encounter Summary ---
[place] [address] Care Team Providers Care High Speed Operator Name Role Phone Devorah Epstein MD Primary Care Provider [phone] Encounter Details Date Type Department Care Team (Late st Contact Info) Description 09/01/2017 2:20 PM EST Clinical [place] [id number] Social History Tobacco Use Types Packs/Day Years Used Date Smoking Tobacco: Former Smokeless Tobacco: Never Alcohol Use Standard Drinks/Week Comments No 0 (1 standard drink = 0.6 oz pur e alcohol) Sex and Gender Information Value Date Recorded Sex Assigned at Not on file Gender Identity Not on file Sexual Orientation Not on file documented as of this encounter Progress Notes * Missy Hinkle RN - 09/01/2017 2:20 PM EST PAT questionnaire reviewed with patient and daughter, Sanna, while in Pre Admission testing. Pre-operative instruction booklet reviewed with patient. Reviewed importance of pain control and cough and deep breathing exercise during the post-operative period. Instructed patient on use of Hibiclens soap to shower with the night before surgery or the morning of surgery. Pt verbalizes a good understanding of all information reviewed. Patient also instructed that they will receive a DVD and a booklet calledA Patient's Guide to Cardiac Surgery in the mail from the surgeons office. Instructed to bring these items back in on the day of surgery, as the booklet will be used daily by the inpatient nurses caring for them, to review all of their teaching needs each day that they are here in the hospital. PLAN Testing: T&Sc; bloodwork Special medication instructions: Stop all vitamins and supplements today. Procedure date: 09/11 Jeferson * Missy Hinkle RN - 09/01/2017 2:20 PM EST documented in this encounter Plan of Treatment Upcoming Encounters Date Type Department Care Team (Late st Contact Info) Description 03/28/2024 10:00 AM EDT Hospital Encounter Non-[place]vasive [place] [address] Arrived documented as of this encounter Visit Diagnoses Not on filedocumented in this encounter Care Teams High Speed Operator Relationship Specialty Start Date End Date Devorah Epstein MD [address] [place] [address] PCP - General Family Medicine 09/01/17 documented as of this encounter
--- OUTSIDE RECORDS SUMMARY | 2024-01-22 03:02 | XMS_ITS | Encounter Summary ---
Author Organization [facility] [place] [address] Care Team Providers Care Food Assembler Kitchen Name Role Phone Devorah Epstein MD Primary Care Provider [phone] Encounter Details Date Type Department Care Team (Latest Contact Info) Description 09/01/2017 3:26 PM EST - 09/01/2017 11:59 PM [facility] at [address] [place] [address] Pablo Govea MD [facility] CARDIOTHORACIC [place] [address] Atherosclerosis of [place] coronary artery of [place] heart with angina pectoris Discharge Disposition: Home Social History Tobacco Use [...] mcg by mouth. 12/01 UNABLE TO FIND Saw nikki 09/15/2017 lactobacillus rhamnosus, GG, (CULTURELLE) 10 billion [...] AM EDT Hospital Encounter Non-Invasive [place] [address] Arrived documented as of this encounter Procedures Procedure Name Priority Date/Time Associated Diagnosis Comments XR CHEST PA AND LATERAL Routine 09/01/2017 3:54 PM EST Atherosclerosis of [place] coronary artery of [place] heart with angina pectoris documented in this [...] lungs. Pablo Govea MD IMG DX ORDERABLES documented in this encounter Visit Diagnoses Diagnosis Atherosclerosis of [place] coronary artery of [place] heart with angina pectoris documented in this encounter Care Teams Food Assembler Kitchen Relationship Specialty Start Date End Date Devorah Epstein MD [address] [place] [address] PCP - General Family Medicine 09/01/17 documented as of this encounter
--- OUTSIDE RECORDS SUMMARY | 2024-01-22 03:03 | XMS_ITS | Encounter Summary ---
Author Organization [facility] [place] [address] Care Team Providers Care Director Corporate Communications Name Role Phone Devorah Epstein MD Primary Care Provider [phone] Encounter Details Date Type Department Care Team (Latest Contact Info) Description 09/01/2017 8:26 AM EST - 09/01/2017 2:20 PM EST Hospital Encounter [place] [id number] [place] [address] Abnormal stress test; LOYOLA (dyspnea on exertion); Atheros[place] coronary artery [place] heart with angina pectoris Discharge Disposition: Home [...] Sign Reading Time Taken Comments Blood Pressure 138/79 09/01/2017 1:11 PM EST Pulse 54 09/01/2017 1:11 PM EST Temperature 36.5 ??C (97.7 ??F) 09/01/2017 1 1:58 AM EST Respiratory Rate 12 09/01/2017 1:11 PM EST Oxygen Saturation 95% 09/01/2017 1:11 PM EST Inhaled Oxygen Concentration - - Weight [...] by your doctor, do not take any [id number] medicines or herbal preparations without first discussing this with your doctor or pharmacist. There is the possibility of side effect and interactions when these are combined. Follow up Care Who to Call with Questions or Problems If there are any questions or problems that you think might be related to your cardiac cath or angioplasty, contact the delivery merchandiser community recreation programmer by calling [facility] at . documented in this encounter Medications [...] Ortez RN - 09/01/2017 2:05 PM EST Keegan offering no complaints. Declines offer of food or drink. Ambulated to bathroom and voided large amount. Dr. Vinesone over to visit with Patient and family . Patient will go to [facility] and xray prior to discharge from hospital documented in this encounter H&P Notes * Marcell Gilman MD - 09/01/2017 8:54 AM EST Complete Adult Pre-Procedural H&P Patient Name: Keegan Cabrera : 1940 77 y.o. MR#: [id number] Chief Complaint: Dyspnea Planned Procedure: Left heart [...] AM EDT Hospital Encounter [place] [address] Arrived documented as of this encounter Procedures Procedure Name Priority Date/Time Associated Diagnosis Comments ABORH RECHECK STATUS Routine 09/01/2017 3:15 PM EST HEMOGRAM Routine 09/01/2017 3:15 PM EST [place]rosclerosis [place] coronary artery [place] heart with angina pectoris DIFFERENTIAL, AUTOMATED Routine 09/01/2017 3:15 PM EST Atherosclerosis [place] coronary artery of [place] heart with angina pectoris TYPE AND SCREEN, SDP (FUTURE SURGERY, [facility] [place] SAME DAY PROGRAM ONLY) Routine 09/01/2017 3:15 PM EST Atherosclerosis [place] coronary artery [place] heart with angina pectoris ABO/RH TYPING Routine 09/01/2017 3:15 PM EST Atherosclerosis [place] coronary artery of [place] heart with angina pectoris CBC (WITH DIFF) Routine 09/01/2017 3:15 PM EST Atherosclerosis [place] coronary artery [place] heart with angina pectoris ANTIBODY SCREEN Routine 09/01/2017 3:15 PM EST Atherosclerosis [place] coronary artery of [place] heart with angina pectoris BASIC METABOLIC PANEL (NON-FASTING) Routine 09/01/2017 3:15 PM EST Atherosclerosis [place] coronary artery of [place] heart with angina pectoris EKG 12-LEAD Routine 09/01/2017 9:11 AM EST Abnormal stress test LOYOLA (dyspnea on exertion) documented in this encounter Results * ABORH Recheck Status (09/01/2017 3:15 PM EST) ABORH Recheck Order Order Placed [facility] ABORH Type Recheck Complete [facility] Blood specimen (specimen) 09/01/2017 3:15 PM EST 09/01/2017 4:27 PM EST Narrative Resulting Agency Comment Spec In Lab Pablo Govea MD BLOOD BANK LAB ZAY PURI [facility] [place] [place] [address] * Differential, Automated (09/01/2017 3:15 PM EST) Neutrophils % 71.6 % [facility] Neutr Abs (ANC) 4.17 1.70 - 6.10 x10(3)/[facility] Lymphocytes % 16.5 % [facility] Lymphocytes Abs 1.0 0.9 - 3.2 x10(3)/[facility] Monocytes % 8.8 % [facility] Monocyte Abs 0.5 0.3 - 0.9 x10(3)/[facility] Eosinophils % 1.9 % [facility] Eosinophils Abs 0.1 0.0 - 0.4 x10(3)/[facility]OR[facility]ORY Basophils % 0.7 % [facility] Basophils Abs 0.0 0.0 - 0.1 x10(3)/[facility] LABORATORY Immature Gran % 0.50 % [facility] Comment: Immature granulocytes(IG's)percentage and absolute count will include metamyelocytes, myelocytes, and promyelocytes. Blood smears from CBCs yielding IG's will be scanned manually for concordance. If this scan disagrees with the automated IG or if promyelocytes are noted, a manual differential will be performed. Steph Gran Abs 0.03 0.00 - 0.04 x10(3)/[facility] Blood specimen (specimen) 09/01/2017 3:15 PM EST 09/01/2017 3:30 PM EST Narrative Resulting Agency Comment Spec In Lab Pablo Govea MD HEMATOLOGY ORDERABL ES [facility] [place] [address] * Hemogram (09/01/2017 3:15 PM EST) WBC 5.8 4.0 - 9.5 x10(3)/[facility]ORY RBC 4.90 4.58 - 5.54 x10(6)/[facility]ORY Hemoglobin 14.9 13.7 - 16.5 gm/dL [facility] Hematocrit 43.8 40.5 - 48.5 % [facility] MCV 89.4 82.9 - 93.1 [facility] MCH 30.4 27.5 - 32.1 pg [facility] MCHC 34.0 32.0 - 35.7 gm/dL [facility] Platelets 157 145 - 357 x10(3)/[facility] LABORATORY RDWSD 43.4 36.0 - 45.0 [facility] RDWCV 13.5 11.4 - 13.8 % [facility] MPV 9.3 7.6 - 12.9 [facility] nRBC % Auto 0.0 % [facility] nRBC Abs Auto 0.000 0.000 - 0.000 x10(3)/[facility] Blood specimen (specimen) 09/01/2017 3:15 PM EST 09/01/2017 3:30 PM EST Narrative Resulting Agency Comment Spec In Lab Pablo Govea MD HEMATOLOGY ORDERABL ES [facility] [place] [place] [address] * Antibody screen (09/01/2017 3:15 PM EST) Pathologist [facility] Ab Screen Interp Negative [facility] Expires at [id number] on: 09/14/2017 [facility] Blood specimen (specimen) 09/01/2017 3:15 PM EST 09/01/2017 3:41 PM EST Narrative Resulting Agency Comment Spec In Lab Pablo Govea MD BLOOD BANK LAB ORDGisel PURI [facility] [place] [address] * ABO/Rh Typing (09/01/2017 3:15 PM EST) [facility] ABORH Type B Pos [facility] Blood specimen (specimen) 09/01/2017 3:15 PM EST 09/01/2017 3:41 PM EST Narrative Resulting Agency Comment Spec In Lab Pablo Govea MD BLOOD BANK LAB ORDGisel PURI [facility] [place] [address] * (ABNORMAL) Basic Metabolic Panel (non-fasting) (09/01/2017 3:15 PM EST) [facility] Glucose Lvl 119 65 - 199 mg/dL [facility] Comment:Diabetes: >=200 mg/d L plus symptoms BUN 21(H) 10 - 20 mg/dL [facility] Creatinine 1.12 0.80 - 1.50 mg/dL [facility] Sodium 141 135 - 145 mmol/L [facility] Potassium 3.9 3.5 - 5.0 mmol/L [facility] Comment: Please note: ??Patients with WBC >100,000 may have falsely elevated Potassium levels. ??For accurate Potassium quantification in these patients send serum separator tube (gold top) for subsequent determinations. ??Contact the Clinical Chemistry Laboratory if there are any questions. Chloride 103 98 - 107 mmol/L [facility] CO2 24 22 - 31 mmol/L [facility] Anion Gap 14 5 - 15 mmol/L [facility] Calcium 10.1 8.5 - 10.5 mg/dL [facility] Estimated GFR >60 >=60 [facility] Comment: The reported eGFR should be multiplied by 1.2 for patients. The MDRD is not an appropriate measure of renal function for patients with body mass extremes or in patients with acute kidney failure. http://[employer]/DHnkdep http://[employer]/DHMCnkf Blood specimen (specimen) 09/01/2017 3:15 PM EST 09/01/2017 3:30 PM EST Narrative Resulting Agency Comment Spec In Lab Pablo Govea MD CHEMISTRY ORDERABLE S Performing Organization Address [facility] Co de Phone Number [facility] [place] [address] * EKG 12 Lead (09/01/2017 9:11 AM EST) Ventricular rate 78 BPM MUSE SYSTEM Atrial Rate 78 BPM MUSE SYSTEM P-R Interval 240 ms MUSE SYSTEM QRS Duration 94 ms MUSE SYSTEM Q-T Interval 408 ms MUSE SYSTEM QTC Calculated (Bezet) 465 ms MUSE SYSTEM Calculated P [place] 56 degrees MUSE SYSTEM Calculated R [place] 43 degrees MUSE SYSTEM Calculated T [place] -2 degrees MUSE SYSTEM INTERPRETATION Sinus rhythm with 1st degree A-V block Nonspecific ST and T wave abnormality Abnormal ECG No previous ECGs available I personally reviewed the tracing and edited the fellows interpretation Confirmed by fellow MD Don, Grant ([id number]) on 09/01/2017 11:44:57 AM Confirmed by MD AFSHAN, ISABEL ([id number]) on 09/02/2017 3:03:24 PM MUSE SYSTEM 09/01/2017 9:11 AM EST 09/02/2017 3:03 PM EST Brianna Brock MD ECG ORDERABLES Performing Organization Address [facility] Co de Phone Number MUSE SYSTEM documented in this encounter Visit Diagnoses Diagnosis Abnormal stress test Other nonspecific abnormal cardiovascular system function study LOYOLA (dyspnea on exertion) Other dyspnea and respiratory abnormality [place]ros[place] coronary artery [place] heart with angina pectoris documented in this encounter Administered Medications Inactive Administered Medications - up to 3 most recent administrations Medication Order MAR Action Action Date Dose Rate Site sodium chloride 0.9% infusion 125 mL/hr, Intravenous, CONTINUOUS, Starting on Mon09/01/17 at 1145, Until Mon09/01/17 at 1344, Recovery (Recovery-Hospital Unit) New Bag 09/01/2017 11:34 AM EST 125 mL/hr 125 mL/hr documented in this encounter Active and Recently [...] RN) documented in this encounter Care Teams Director Corporate Communications Relationship Specialty Start Date End Date Devorah Epstein MD [facility] [address] [place] [address] PCP - General Family Medicine 09/01/17 documented as of this encounter
--- OUTSIDE RECORDS SUMMARY | 2024-01-22 03:03 | XMS_ITS | Encounter Summary ---
Author Organization Formerly [facility] [place] [address] Care Team Providers Care Holder Pile Driving Name Role Phone Unavailable Primary Care Provider Unavailabl e Encounter Details Date Type Department Care Team (Late st Contact Info) Description 08/29/2017 [place] [address] Didier Soler [place] [facility] [address] Abnormal stress test; LOYOLA (dyspnea on exertion) Social History Tobacco Use Types Packs/Day Years [...] AM EDT Hospital Encounter [place] [id number] Arrived documented as of this encounter Procedures Procedure Name Priority Date/Time Associated Diagnosis Comments TRANSESOPHAGEAL ECHOCARDIOGRAM (TONIE) Routine 09/11/2017 CARDIAC CATHETERIZATION Routine 09/02/19 18 11:10 AM EST Abnormal stress test LOYOLA (dyspnea on exertion) documented in this encounter Results * Transesophageal Echocardiogram (TONIE) (09/11/2017) Anatomical Region Laterality Modality Other 09/11/2017 Narrative 09/11/2017 10:35 AM EDT Procedure: ?Transesophageal Echocardiogram Patient: ?KENDRICK Thomas ?(Age): 1940(77y) Med Rec#: ? [id number] ?Sex: ?M ? Site Loc: ? Ht / Wt: ??(cm)/ (kg) ? Pt. Loc: ? Study Date: ?? 09/11/2017 ?Pt. Type: Tape: ? Reading: Kalyan Tinsley ([id number]) Diagnosis: SUMMARY: 1. Intraoperative TONIE performed at the request of Dr. Obando for the diagnosis and evaluation of hemodynamics, overall cardiac function, and valvular pathologies as indicated. TONIE probe was passed atraumatically after induction and removed in a similar fashion before emergence. 2. Pre-Bypass: The LVEF is 61% with no wall motion abnormalities. ??There is trace MR and AI. ??TONIE was used to facilitate cannulation of the aorta. 3. Post-Bypass: Global LV and RV function is improved. LVEF is ??65%. There is now 1+/4+ MR. ??There are no other significant changes from prebypass exam. There is no evidence of aortic dissection post decannulation. Remainder of the exam is unchanged from prior. Findings ? : Left Ventricle: ? Borderline concentric left ventricular hypertrophy is observed. ?The quantitative left ventricular ejection fraction by biplane Reilly's method is 65%. ?Left ventricular diastolic function is probably abnormal. Left Atrium: ? The left atrium is normal in size. ?The left atrial appendage velocity is normal. ?There is no evidence of a patent foramen ovale by color Doppler. Right Ventricle: ? Right ventricular chamber size, wall thickness, and systolic function are within normal limits. Right Atrium: ? The right atrium appears normal. Aortic Valve: ? The aortic valve is tricuspid. ?There is a trace of aortic regurgitation present. Mitral Valve: ? The mitral valve appears normal in structure and function. ?The peak gradient across the mitral valve is 2 mmHg. ?The mean gradient across the mitral valve is 1 mmHg. ?The pressure half time of the mitral vavle is 110 msec. ?The mitral valve area is calculated at 4.99 cm2. ?There is no evidence of mitral stenosis. ?There is mild (1+/4+) mitral regurgitation present. Tricuspid Valve: ? The tricuspid valve appears normal in structure and function. Pulmonic Valve: ? The pulmonic valve appears normal in structure and function. Aorta: ? There is evidence of grade 2 (extensive intimal thickening) atheromatous disease of the ascending aorta. ?There is evidence of grade 3 (atheroma <= 5mm) atheromatous disease of the aortic arch. ?There is evidence of grade 3 (atheroma <= 5mm) atheromatous disease of the descending thoracic aorta. Chambers 2D ?Value ?Units (Range) ? Ao root diameter (2D2.5 ?cm (2.1 - 3.6) ? Diastolic/Systolic Function ?Value ?Units (Range) ? MV E:A ratio ?0.9 ?ratio ? Aortic Valve ?Value ?Units (Range) ? AV peak gradient ?18 ? mmHg ? AV mean gradient ?9 ?mmHg ? LVOT diameter ? 2.1 ?cm ? MICHAEL (continuity Vmax2.6 ?cm2 ? Mitral Valve ?Value ?Units (Range) ? MV Vmax ? 0.6 ?m/sec ? MV peak gradient ?2 ?mmHg ? MV mean gradient ?1 ?mmHg ? MV PHT ?110 ?msec ? MVA (PHT) ? 5 ?cm2 ? Wall Motion: Segment Name ?Rest ? Base-Anteroseptal ?? Normal ? Base-Anterior ? Normal ? Base-Anterolateral ??Normal ? Base-Posterolateral Normal ? Base-Inferior ? Normal ? Base-Inferoseptal ?? Normal ? Mid-Anteroseptal ?Normal ? Mid-Anterior ?Normal ? Mid-Anterolateral ?? Normal ? Mid-Posterolateral ??Normal ? Mid-Inferior ?Normal ? Mid-Inferoseptal ?Normal ? [place]-Septal ? Normal ? [place]-Anterior ? Normal ? [place]-Lateral ?Normal ? [place]-Inferior ? Normal ? [place]-Tip ?Normal ? This report has been electronically signed by: Kalyan Tinsley MD ? 09/11/2017 10:34:09 Images reviewed and interpretation verified [facility] Procedure Note Kalyan Tinsley MD - 09/11/2017 Procedure: Transesophageal Echocardiogram Patient: KENDRICK BALL(Age): 1940(77y) Med Rec#: [id number] Sex: M Site Loc: Ht / Wt: (cm)/ (kg) Pt. Loc: Study Date: 09/11/2017 Pt. Type: Tape: Reading: Kalyan Tinsley ([id number]) Diagnosis: SUMMARY: 1. Intraoperative TONIE performed at the request of Dr. Obando for the diagnosis and evaluation of hemodynamics, overall cardiac function, and valvular pathologies as indicated. TONIE probe was passed atraumatically after induction and removed in a similar fashion before emergence. 2. Pre-Bypass: The LVEF is 61% with no wall motion abnormalities. There is trace MR and AI. TONIE was used to facilitate cannulation of the aorta. 3. Post-Bypass: Global LV and RV function is improved. LVEF is 65%. There is now 1+/4+ MR. There are no other significant changes from prebypass exam. There is no evidence of aortic dissection post decannulation. Remainder of the exam is unchanged from prior. Findings : Left Ventricle: Borderline concentric left ventricular hypertrophy is observed. The quantitative left ventricular ejection fraction by biplane Reilly's method is 65%. Left ventricular diastolic function is probably abnormal. Left Atrium: The left atrium is normal in size. The left atrial appendage velocity is normal. There is no evidence of a patent foramen ovale by color Doppler. Right Ventricle: Right ventricular chamber size, wall thickness, and systolic function are within normal limits. Right Atrium: The right atrium appears normal. Aortic Valve: The aortic valve is tricuspid. There is a trace of aortic regurgitation present. Mitral Valve: The mitral valve appears normal in structure and function. The peak gradient across the mitral valve is 2 mmHg. The mean gradient across the mitral valve is 1 mmHg. The pressure half time of the mitral vavle is 110 msec. The mitral valve area is calculated at 4.99 cm2. There is no evidence of mitral stenosis. There is mild (1+/4+) mitral regurgitation present. Tricuspid Valve: The tricuspid valve appears normal in structure and function. Pulmonic Valve: The pulmonic valve appears normal in structure and function. Aorta: There is evidence of grade 2 (extensive intimal thickening) atheromatous disease of the ascending aorta. There is evidence of grade 3 (atheroma <= 5mm) atheromatous disease of the aortic arch. There is evidence of grade 3 (atheroma <= 5mm) atheromatous disease of the descending thoracic aorta. Chambers 2D Value Units (Range) Ao root diameter (2D2.5 cm (2.1 - 3.6) Diastolic/Systolic Function Value Units (Range) MV E:A ratio 0.9 ratio Aortic Valve Value Units (Range) AV peak gradient 18 mmHg AV mean gradient 9 mmHg LVOT diameter 2.1 cm MICHAEL (continuity Vmax2.6 cm2 Mitral Valve Value Units (Range) MV Vmax 0.6 m/sec MV peak gradient 2 mmHg MV mean gradient 1 mmHg MV PHT 110 msec MVA (PHT) 5 cm2 Wall Motion: Segment Name Rest Base-Anteroseptal Normal Base-Anterior Normal Base-Anterolateral Normal Base-Posterolateral Normal Base-Inferior Normal Base-Inferoseptal Normal Mid-Anteroseptal Normal Mid-Anterior Normal Mid-Anterolateral Normal Mid-Posterolateral Normal Mid-Inferior Normal Mid-Inferoseptal Normal [place]-Septal Normal [place]-Anterior Normal [place]-Lateral Normal [place]-Inferior Normal [place]-Tip Normal This report has been electronically signed by: Kalyan Tinsley MD 09/11/2017 10:34:09 Images reviewed and interpretation verified [facility] Unknown ECHO ORDERABLES * CARDIAC CATHETERIZATION (09/01/2017 11:10 AM EST) Anatomical Region Laterality Modality Other Narrative 09/11/2017 9:11 AM EDT ?[facility] ? Cardiac Catheterization/Intervention Report ? Patient Name: Keegan Cabrera. ? Procedure Date: 09/01/2017 ? A #: [id number] ? Primary Physician: Brianna Brock ? Case #: [id number] ? File Name: [id number] ? Catheterization Order Number: [id number] ? [facility] ? Final Report [place], [place] ? Patient Name: ? Peter P. Chernovetz ?ID#: ?[id number] ? : ?1940 ? Procedure Date: ? September 01, 2017 ?Case #: ? [id number] ? Room: ? 5 ? Case Physician: ? Brianna Brock M.D. ? Start: ?10:06 ?Fellow: ? Marcell Gilman M.D. ? Admission: ??09/01/2017 ? Referring Physician: ??Cristobal Marie M.D. ? Procedures: ?* Coronary Angiography ?* Left Heart Catheterization ?* Right Heart Catheterization ?* Oximetry ?* Vascular Closure Device Deployment ?* Access Site Angiography ? History ?Keegan Cabrera is a 77 year old man. He has hypertension. The ?patient has hypercholesterolemia managed with lipid therapy. He has ?stable angina and variant angina. The patient has a history of dyspnea ?with NYHA functional class III. He has a history of a heart murmur. The ?patient also has a history of an abnormal stress test and an abnormal ?echocardiogram. Prior to the initiation of this procedure, the patient ?was designated as ASA Class III. ? Patient Status at Catheterization: ?The patient presented with: stable angina (w/i 42 days). [place] ?[employer]iovascular Society angina class was III. This patient was on beta ?blockers and calcium amanda blockers prior to the procedure. A standard ?exercise stress test was performed and results were Positive and ?Intermediate Risk ischemia assessment. The status of the diagnostic ?procedure was Elective. ? Technique: ?A 6Fr sheath was inserted in the right femoral artery utilizing the ?Seldinger technique. A 6Fr sheath was inserted in the right femoral vein ?utilizing the Seldinger technique. Right heart catheterization was ?performed utilizing a 6Fr Balloon wedge catheter. Left ventricular ?pressure was performed with a 6Fr Double lumen pigtail catheter. The left ?coronary artery was injected utilizing a 6Fr JL 6 catheter. A 6Fr JR 4 ?catheter was used to inject the right coronary artery. Left ventricular ?pressure was performed with a 6Fr AL-1 catheter. 2,500 units of heparin ?were administered. A total of 200cc of Omnipaque were opened, 113cc of ?Omnipaque were administered and 87cc of Omnipaque were wasted. Radiation: ?Fluoro time was 18.9 minutes, dose area product was 109,126 mGYcm2 and ?air kerma was 1,600 mGY. ?The patient received the following medications prior to and during the ?procedure: Aspirin (any) and Unfractionated Heparin (any). ? Hemodynamics: ?Right Heart Pressures ? Hemodynamics: ? Syst Diast ? EDP ?a ?v ? m ?RA ? 5 ?4 ? 2 ?RV 35 ?5 ?PA 24 ?14 ?18 ?PCW ?9 ?8 ? 6 ? Hemodynamic Profile: ?Profile 1 ?CO ? 8.42 ?CI ? 3.40 ?TSR ?912 ?SVR ?893 ?TPR ?171 ?PVR ?114 ?Technique ?Estimated Jose Miguel ?Left Heart Pressures ? Resting: ? Syst Diast ? EDP ?a ?v ? m ?Ao 126 ?? 75 ?96 ?LV 129 ? 8 ?Comments: ??Opening AO: 142 / 70 (92). ? Oximetry: ?Location ? %Sat ?Location ?%Sat ?Main Pulmonary Artery ??72.0 ?Pulmonary Capillary ? 95.0 ? Wedge ?Peripheral Arterial ?92.0 ? Coronary Angiography: ?Dominance: Right ?Left Main ? There was a 40% calcified single discrete stenosis of the proximal ? segment of the left main artery. ??The left main was large. ?Left Anterior Descending ? There was a 40% calcified long segmental stenosis of the proximal ? segment of the left anterior descending artery (LAD). ??The LAD was ? large. ??The mid segment of the LAD had a single discrete 80% ? stenosis. ?Left Circumflex ? There was a 70% eccentric single discrete stenosis of the proximal ? segment of the left circumflex artery (LCX). ??The LCX was large. ?Right Coronary Artery ? There was moderate diffuse (<=50% stenosis) disease of the entire ? vessel segment of the right coronary artery (RCA) and it was ? calcified. ??The RCA was large. ? There was a 45% calcified single discrete stenosis of the ostial ? segment of the right posterior descending branch (RPDA) of the RCA. ? The RPDA was moderate in size. ? Indication for Selected Procedures: ?Right Heart catheterization was initiated for Abnormal stress test. ? Vascular Access: ?Vascular Access Angiogram: ? A selective angiogram at the right femoral artery revealed no ? significant obstructive disease. ?Vascular Access Management: ? A 6 Fr Perclose was deployed at the right femoral artery access ? site. This device was successful. Manual Compression of the right ? femoral artery access site was performed. ? Manual Compression of the right femoral vein access site was ? performed. ? Conclusions: ?* Three vessel coronary artery disease (LAD, LCX and RCA) ? Complications/Events: ?The patient had no complications during these procedures. ? Recommendations: ?Based upon the results of this procedure, it was recommended that the ?patient be managed with medical therapy. It was also recommended that ?coronary artery bypass surgery be considered. ? Comments: ?Cardiac catheterization performed for evaluation of dyspnea on exertion ?with abnormal stress test. A right heart catheterization revealed normal ?cardiac filling pressures, normal PA pressures, and a normal cardiac ?output/index by assumed Jose Miguel calculation. ?Left heart catheterization was performed with a dual-lumen pigtail. ??This ?demonstrated a mild (~15 mmHg) rhea-gx-mwmw gradient when comparing from ?LV apex to aorta. ??After an induced PVC there was not an increase in the ?abci-pr-talm difference or decrease in the aortic pulse pressure noted ?(no Brockenmannieugh-Braunwald sign). ??With the distal portion of the ?catheter pulled back to the LVOT there was no bspz-sx-vpkf gradient noted ?across the aortic valve. ?Diagnostic angiography revealed heavily calcified coronary arteries with ?multivessel coronary atherosclerosis. ??There was obstructive disease of ?the mid LAD and proximal LCx with moderate stenosis of the ostium of the ?RPDA. ??Given his calcified, multivessel disease, the decision was made to ?stop and have the patient consult with CT surgery for revascularization ?options. ??The findings and recommendations were discussed with the ?patient and his family. ?The attending physician was present for the entire procedure. ?Dr. Brianna Brock M.D. was present during the moderate sedation intraservice ?time as documented by the sedation nurse. ??Case time = 00:54. ?Dr. Brianna Brock M.D. performed the coronary angiography, left heart ?catheterization, right heart catheterization, oximetry, access site ?angiography and vascular closure device. ? Brianna Brock M.D. ? Electronically Signed by: Brianna Brock M.D. ? Report Finalized: 09/11/2017 ??09:06 ? Report Last Ammended: 09/12/2017 ??14:38 ? Procedure Note Brianna Brock MD - 09/13/2017 [facility] Cardiac Catheterization/Intervention Report Patient Name: Keegan Cabrera Procedure Date: 09/01/2017 A #: [id number] Primary Physician: Brianna Brock Case #: [id number] File Name: [id number] Catheterization Order Number: [id number] [facility] FinalReport [place], [place] Patient Name: Keegan Cabrera ID#:[id number] :1940 Procedure Date: September 01, 2017 Case #: [id number] Room: 5 Case Physician: Brianna Brock M.D. Start: 10:06 Fellow: Marcell Gilman M.D. Admission:09/01/2017 Referring Physician: Cristobal Marie M.D. Procedures: * Coronary Angiography * Left Heart Catheterization * Right Heart Catheterization * Oximetry * Vascular Closure Device Deployment * Access Site Angiography History Keegan Cabrera is a 77 year old man. He has hypertension. The patient has hypercholesterolemia managed with lipid therapy. He has stable angina and variant angina. The patient has a history ofdyspnea with NYHA functional class III. He has a history of a heart murmur.The patient also has a history of an abnormal stress test and anabnormal echocardiogram. Prior to the initiation of this procedure, thepatient was designated as ASA Class III. Patient Status at Catheterization: The patient presented with: stable angina (w/i 42 days). [place] [employer] Society angina class was III. This patient was onbeta blockers and calcium amanda blockers prior to the procedure. Astandard exercise stress test was performed and results were Positive and Intermediate Risk ischemia assessment. The status of the diagnostic procedure was Elective. Technique: A 6Fr sheath was inserted in the right femoral artery utilizing the Seldinger technique. A 6Fr sheath was inserted in the right femoralvein utilizing the Seldinger technique. Right heart catheterization was performed utilizing a 6Fr Balloon wedge catheter. Left ventricular pressure was performed with a 6Fr Double lumen pigtail catheter. Theleft coronary artery was injected utilizing a 6Fr JL 6 catheter. A 6Fr JR4 catheter was used to inject the right coronary artery. Leftventricular pressure was performed with a 6Fr AL-1 catheter. 2,500 units ofheparin were administered. A total of 200cc of Omnipaque were opened, 113ccof Omnipaque were administered and 87cc of Omnipaque were wasted.Radiation: Fluoro time was 18.9 minutes, dose area product was 109,126 [id number] air kerma was 1,600 mGY. The patient received the following medications prior to and duringthe procedure: Aspirin (any) and Unfractionated Heparin (any). Hemodynamics: Right Heart Pressures Hemodynamics: Syst Diast [...] a 40% calcified single discrete stenosis of theproximal segment of the left main artery. The left main was large. Left Anterior Descending There was a 40% calcified long segmental stenosis of theproximal segment of the left anterior descending artery (LAD). The LADwas large. The mid segment of the LAD had a single discrete 80% stenosis. Left Circumflex There was a 70% eccentric single discrete stenosis of theproximal segment of the left circumflex artery (LCX). The LCX waslarge. Right Coronary Artery There was moderate diffuse (<=50% stenosis) disease of theentire vessel segment of the right coronary artery (RCA) and it was calcified. The RCA was large. There was a 45% calcified single discrete stenosis of theostial segment of the right posterior descending branch (RPDA) of theRCA. The RPDA was moderate in size. Indication for Selected Procedures: Right Heart catheterization was initiated for Abnormal stress test. Vascular Access: Vascular Access Angiogram: A selective angiogram at the right femoral artery revealed no significant obstructive disease. Vascular Access Management: A 6 Fr Perclose was deployed at the right femoral artery access site. This device was successful. Manual Compression of theright femoral artery access site was performed. Manual Compression of the right femoral vein access site was performed. Conclusions: * Three vessel coronary artery disease (LAD, LCX and RCA) Complications/Events: The patient had no complications during these procedures. Recommendations: Based upon the results of this procedure, it was recommended thatthe patient be managed with medical therapy. It was also recommendedthat coronary artery bypass surgery be considered. Comments: Cardiac catheterization performed for evaluation of dyspnea onexertion with abnormal stress test. A right heart catheterization revealednormal cardiac filling pressures, normal PA pressures, and a normal cardiac output/index by assumed Jose Miguel calculation. Left heart catheterization was performed with a dual-lumen pigtail.This demonstrated a mild (~15 mmHg) qejj-pm-kvxz gradient when comparingfrom LV apex to aorta. After an induced PVC there was not an increase inthe xytg-ye-uyev difference or decrease in the aortic pulse pressurenoted (no Brockenbrough-Braunwald sign). With the distal portion of the catheter pulled back to the LVOT there was no ftqz-ms-jslq gradientnoted across the aortic valve. Diagnostic angiography revealed heavily calcified coronary arterieswith multivessel coronary atherosclerosis. There was obstructive diseaseof the mid LAD and proximal LCx with moderate stenosis of the ostium ofthe RPDA. Given his calcified, multivessel disease, the decision wasmade to stop and have the patient consult with CT surgery forrevascularization options. The findings and recommendations were discussed with the patient and his family. The attending physician was present for the entire procedure. Dr. Brianna Brock M.D. was present during the moderate sedationintraservice time as documented by the sedation nurse. Case time = 00:54. Dr. Brianna Brock M.D. performed the coronary angiography, left heart catheterization, right heart catheterization, oximetry, access site angiography and vascular closure device. Brianna Brock M.D. Electronically Signed by: Brianna Brock M.D. Report Finalized: 09/11/2017 09:06 Report Last Ammended: 09/12/2017 14:38 Brianna Brock MD CARDIAC CATH ORDERAB LES documented in this encounter Visit Diagnoses Diagnosis Abnormal stress test Other nonspecific abnormal cardiovascular system function study LOYOLA (dyspnea on exertion) Other dyspnea and respiratory abnormality LOYOLA (dyspnea on exertion) Other dyspnea and respiratory abnormality Abnormal stress test Other nonspecific abnormal cardiovascular system function study documented in this encounter
[2024-01-22] MEDS: Levalbuterol HFA 15 GM INH 4 PUFF IH (14:09)
[2024-01-22] MEDS: Inhaler, Assist Device 1 EACH MC (14:09)
--- NOTE | 2024-01-23 10:19 | W.PFT ---
Date of service: 01/22/24 Time of Service: 13:07 Pulmonary Function Test Result Requesting Provider Elma Balderas Indications: ILD Impression Spirometry shows normal FEV1/FVc and FEV1, FVC. normal lung volumes w/ no air trapping. Mild decrease in diffusion. Flow volume curve is normal Clinical Correlation therefore is recommended.
== END 2024-01-22 02:43 | disposition home or self-care (01) ==
LOC: RT 02:43
PROVIDERS: PCP Family Medicine; Visit Provider Physician Assistant Surgical
DX: J84.9 Interstitial pulmonary disease, unspecified (principal); J47.9 Bronchiectasis, uncomplicated
CPT/HCPCS: 00123; 94060; 94726; 94729

== ENCOUNTER 2024-04-16 00:57 | Outpatient (CLI) | payer MEDICARE, OTHER, SELFPAY ==
--- NOTE | 2024-04-16 14:30 | DI.US_ITS ---
APPROVED REPORT EXAM: Comprehensive 2D, Doppler, and color-flow Echocardiogram Patient Location: Out-Patient Lining Layer: Annmarie Echavarria RDCS (AE) Indications: Check ascending aorta, Dilated aortic root, CAD, atrial fibrillation, Pacer Other Information Study Quality: Adequate Conclusion Mild concentric left ventricular hypertrophy. There is mild systolic dysfunction. The LV is stiff a nd diffusely hypocontractile. EF is 45 to 50% Normal right ventricular size. Right ventricle is moderately hypocontractile Both atria are mildly enlarged Aortic valve is sclerotic with trace regurgitation. Mean valve gradient is 10 mmHg with a calculated aortic valve area of 1.45 cm??, mild aortic stenosis Mildly thickened mitral leaflets. Trace mitral regurgitation Estimated right ventricular systolic pressure is 37 mmHg Ascending aorta measures 4.6 cm Wall motion Left Ventricle The left ventricle is normal size. Left ventricular systolic function is mildly decreased. Severe con centric left ventricular hypertrophy. There is global hypokinesis of the left ventricle. There is no ventricular septal defect visualized. Visually EF appears 45 to 50% Right Ventricle The right ventricle is normal size. Right ventricle is moderately hypokinetic. Atria Left atrium is mildly dilated. Right atrium is mildly dilated. The interatrial septum is intact with no evidence for an atrial septal defect. Aortic Valve The Aortic valve is sclerotic. Aortic valve is trileaflet. Mild aortic stenosis Trace aortic regurgit ation. Mitral Valve Mitral valve leaflets are mildly thickened. No evidence of mitral valve stenosis. Trace mitral regurg itation. Tricuspid Valve The tricuspid valve is normal in structure. There is no tricuspid valve stenosis. Trace to mild tricu spid regurgitation. The RVSP is 37.2 mmHg. Pulmonic Valve The pulmonary valve is normal in structure. There is no pulmonic valvular stenosis. There is no pulmo shai valvular regurgitation. Great Vessels The aortic root is normal in size. The ascending aorta is moderately dilated. Aortic arch is not well visualized. The IVC collapses <50% with inspiration. Pericardium There is no pericardial effusion. 2D Dimensions IVSD d PLAX 1.71 cm M: 0.6-1.2 Ao Root d 3.55 cm M: 3.1 - 3.7 LVPW d PLAX 1.70 cm M: 0.6 - 1.2 Ao Asc Diam d 4.60 cm M: 2.6 - 3.4 LVID d PLAX 4.32 cm M: 4.2 - 5.8 LVDs 3.66 cm M: 2.5 - 4.0 LV EF Teichholz 32.9 % FS 15.44 % LV EDV (Teich) 84.2 mL LV ESV (Teich) 56.5 mL M-Mode TAPSE 1.19 cm (M/F) >1.7 Auto EF LV EDV A4C 192.1 mL LV EDV A2C 231.0 mL LV EDV BP 211.6 mL LV ESV A4C 131.1 mL LV ESV A2C 151.9 mL LV ESV BP 141.4 mL LVEF(%) A4C 31.8 % LVEF(%) A2C 34.3 % LVEF(%) BP 33.2 % LV SV A4C 61.0 ml LV SV A2C 79.2 ml LV SV BP 70.2 ml LV CO A4C 4.3 L/min LV CO A2C 4.7 L/min LV CO BP 4.5 L/min HR A4C 69.77 BPM HR A2C 58.92 BPM LV EDV Index (BP) LV Strain Long Pk Overal Avg (s) 7.00 LA Volume LA Length A4C 6.0 cm LA Length A2C 6.3 cm LA Area A4C s 27.16 cm2 LA Area A2C s 25.69 cm2 LA Vol A4C A-L 104.76 mL LA Vol A2C A-L 89.66 mL LA Vol Biplane A-L 99.1 mL LA Vol/BSA A4C A-L LA Vol/BSA A2C A-L LA Vol/BSA BP A-L 40.4 mL/m2 LA Vol A4C MOD 89.4 mL LA Vol A2C MOD 84.6 mL LA Vol BP MOD 88.3 mL RA Volume RA Area A4C 25.3 cm2 RA ESV A4C (A-L) 84.4mL RA Vol/BSA A4C A-L RA Length A4C 6.4 cm RA ESV A4C (MOD) 84.0mL LV Diastology MV E' lateral 0.092 (>0.1 m/s) MV E Vmax 0.96 (0.4-1.3 m/s) MV E/E' LAT 10.44 (<14) Aortic Valve AoV Vmax 1.95 m/s LVOT Vmax 0.69 m/s AoV Peak Grad 15.2 mmHg LVOT Peak Grad 1.9 mmHg AoV Area (Vmax) 1.31 cm2 LVOT VTI 0.140 m AoV VTI 0.359 m LVOT Mean Grad 1.0 mmHg AoV Mean Juan Alberto. 1.52 m/s LVOT SV 52.09 mL AoV Mean Grad 10.3 mmHg LVOT Diam s 2.15 cm AoV Area (VTI) 1.45 cm2 AV Regurg Peak Gr. 15.20 mmHg Velocity Ratio 0.35 Mitral Valve MV DT 187 (160-240 msec) MV Vmax TIPS 1.00 m/s MV Mean Grad 1.3 (<2mmHg) MV PHT 84 msec MV Area PHT 2.63 cm2 MV VTI 0.284 m Pulmonary Valve PV Vmax 0.89 (0.5-1.5 m/s) RVOT Vmax 0.96 m/s PV Peak Grad 3.1 mmHg RVOT Peak Gr. 3.7 mmHg PV Mean Juan Alberto 0.62 m/s RVOT VTI 0.123 m PV Mean Grad 1.8 mmHg RVOT Mean Gr. 2.4 mmHg Tricuspid Valve RA Pressure 8.00 mmHg TR Vmax 2.70 m/s TV S' 0.13 m/s TR Peak Grad 29.1 mmHg RVSP (TR) 37.2 mmHg
== END 2024-04-16 01:17 ==
PROVIDERS: PCP Family Medicine; Visit Provider Internal Medicine Cardiovascular Disease
DX: I77.810 Thoracic aortic ectasia (principal); I25.10 Atherosclerotic heart disease of native coronary artery without angina pectoris; I48.91 Unspecified atrial fibrillation
CPT/HCPCS: 93306

== ENCOUNTER → 2024-04-25 10:52 | Outpatient (BNVA) | payer MEDICARE, OTHER, SELFPAY | PROVIDERS: PCP Family Medicine; Visit Provider Internal Medicine Cardiovascular Disease | DX: I35.0 Nonrheumatic aortic (valve) stenosis (principal); I48.19 Other persistent atrial fibrillation; I25.810 Atherosclerosis of coronary artery bypass graft(s) without angina pectoris; Z95.0 Presence of cardiac pacemaker | CPT/HCPCS: 99213 ==

== ENCOUNTER 2024-04-29 19:03 | Outpatient (REF) | payer MEDICARE, OTHER, SELFPAY ==
--- OUTSIDE RECORDS SUMMARY | 2024-04-29 19:12 | XMS_ITS | Encounter Summary ---
Author Organization [facility] [place] [address] Care Team Providers Care Silo Filler Name Role Phone Devorah Epstein MD Primary Care Provider Reason for Visit * Reason Comments Medication Refill Encounter Details Date Type Department Care Team (Late st Contact Info) Description 04/11/2024 Refill H[place]ology [place] [address] Darrell Galladro MD [facility] [address] HEMATOLOGY/[place] [address] Social History Tobacco Use Types Packs/Day Years Used Date Smoking Tobacco: Former Smokeless Tobacco: Never Alcohol Use Standard Drinks/Week Comments No 0 (1 standard drink = 0.6 oz pur e alcohol) [facility] Utilities Answer Date Recorded In the past 12 months has [employer], gas, oil, or water [employer] threatened to shut off services in your [...] any time in the past 12 m [facility], were you homeless or living in a fdc (including now)? No 12/04/2023 DH IPV Inpatient [...] Care Team (Late st Contact Info) Description 06/26/2024 10:00 AM [facility] Hospital Encounter Non-[place] [address] Arrived documented as of this encounter Visit Diagnoses Not on filedocumented in this encounter Care Teams Silo Filler Relationship Specialty Start Date End Date Devorah Epstein MD [address] [place] [address] PCP - General Family Medicine 09/01/17 documented as of this encounter
--- OUTSIDE RECORDS SUMMARY | 2024-04-29 19:12 | XMS_ITS | Encounter Summary ---
Author Organization [facility] Address [address] [place] [address] Care Team Providers Care Surveying Teacher Name Role Phone Devorah Bahena MD Primary Care Provider [phone] Encounter Details Date Type Department Care Team (Late st Contact Info) Description 06/03/2016 Results Only [facility] [phone] Roberto Rock, DO [address] [place] [address] Social History Tobacco Use Types [...] when reading/interpret ing unformatted reports. Name: ? KENDRICKSERGE ? Accession #: ? [id number] ? : ? 1940 (Age: 75) ??M [...] (ASCP) 06/07/2016 8:48 AM End of Report [facility] 06/03/2016 18:4 7 EST 06/06/2016 18:47 EST Roberto Rock DO PATHOLOGY ORDERABLES [facility] [address] [place] [address] documented in this encounter Visit Diagnoses Not on filedocumented in this encounter Care Teams Surveying Teacher Relationship Specialty Start Date End Date Devorah Bahena MD [address] [place] [phone] PCP - General 11/04/15 documented as of this encounter
--- OUTSIDE RECORDS SUMMARY | 2024-04-29 19:12 | XMS_ITS | Clinical Summary ---
Author Organization [facility] Address [address] [place] [address] Care Team Providers Care Lunchroom Monitor Name Role Phone Devorah Epstein MD Primary Care Provider [phone] Allergies Active Allergy Reactions Criticality Noted Date [...] NSTEMI (non-ST elevated myocardial infarction) ( [facility]) 02/07/2018 MALCOM on CPAP 02/07/2018 Hypertension 02/07/2018 Polycystic kidney disease 02/07/2018 CAD (coronary artery disease) 02/07/2018 Elevated troponin 02/07/2018 Surgical History Surgery Date Site/Laterality Comments CORONARY [...] 18 02/07/2018 0832 EDT Oxygen Saturation 96% 02/07/2018820 EDT Inhaled Oxygen Concentration - - Weight 125.2 kg (276 lb) 02/07/2018416 EDT Height 182.9 cm (6') 02/07/2018416 EDT Body Mass Index 37.43 02/07/2018 0417 EDT Plan of Treatment Health Maintenance Due Date Last Done Comments RSV Immunization ( o r 60+ Years) (1 - 1-dose 60+ series) 2000 Fall Risk Screening 2005 COVID-19 Vaccine (2022-24 season) 2023 Advance Directives For more information, please contact: [phone] * Full Code (Latest Code Status on File) Date Activated Date Inactivated Comments 02/07/2018 4:31 02/07/2018 17:44 Question Answer Comments Reason for decision includes: Full code consistent with overall plan of care Who participated in the discussion? Not Discusse d Care Teams Lunchroom Monitor Relationship Specialty Start Date End Date Devorah Epstein MD [address] [place] [phone] PCP - General 11/04/15
--- OUTSIDE RECORDS SUMMARY | 2024-04-29 19:12 | XMS_ITS | Encounter Summary ---
[place] [address] Care Team Providers Care Train Controller Name Role Phone Devorah Epstein MD Primary Care Provider [phone] Reason for Visit * Reason Onset Date Comments Post Procedure Call 12/12/2023 Encounter Details Date Type Department Care Team (Late st Contact Info) Description 12/12/2023 Notes Only Cardiology at [address] [phone] Jovanna Eduardo, RN Post Procedure Call (/) Social History Tobacco Use Types Packs/Day Years Used Date Smoking Tobacco: Former Smokeless Tobacco: Never Alcohol Use Standard Drinks/Week Comments No 0 (1 standard drink = 0.6 oz pur e alcohol) [facility] Utilities Answer Date Recorded In the past 12 months has [employer], gas, oil, or water [employer] threatened to shut off services in your [...] any time in the past 12 m [facility], were you homeless or living in [...] his/her physician or the Cardiac Electrophysiology Service ([phone]). Arm Restrictions: - Do not raise your [...] st Contact Info) Description 06/26/2024 10:00 AM EST Hospital Encounter Non-In[place] [address] Arrived documented as of this encounter Visit Diagnoses Not on filedocumented in this encounter Care Teams Train Controller Relationship Specialty Start Date End Date Devorah Epstein MD [address] [place] [address] PCP - General Family Medicine 09/01/17 documented as of this encounter
--- OUTSIDE RECORDS SUMMARY | 2024-04-29 19:12 | XMS_ITS | Encounter Summary ---
Author Organization [facility] Address [address] [place] [address] Care Team Providers Care Oil Well Drilling Manager Name Role Phone Unavailable Primary Care Provider Unavailabl e Encounter Details Date Type Department Care Team (Latest Contact Info) Description 10/30/2015 8:20 EDT - 10/30/2015 23:59 EDT Hospital Encounter [address] [address] Unknown, Provider, MD Discharge Disposition: Home or Self Care Social History Tobacco Use Types Packs/Day Years Used Date Smoking Tobacco: Never Assessed Sex and Gender Information Value Date Recorded Sex Assigned at Not on file Gender Identity Not on file Sexual Orientation Not on file documented as of this encounter Discharge Disposition Disposition Code Departure Means Destination Home or Self Senior Care documented in this encounter Plan of Treatment Not on file documented as of this encounter Visit Diagnoses Not on filedocumented in this encounter
--- OUTSIDE RECORDS SUMMARY | 2024-04-29 19:12 | XMS_ITS | Encounter Summary ---
[place] [address] Care Team Providers Care Underwriting Manager Name Role Phone Devorah Epstein MD Primary Care Provider [phone] Encounter Details Date Type Department Care Team (Latest Contact Info) Description 03/28/2024 10:00 AM EDT - 03/28/2024 11:59 PM EDT Hospital Encounter Non-[place]vasive [place] [phone] Discharge Disposition: Home Social History Tobacco Use Types Packs/Day Years Used Date Smoking Tobacco: Former Smokeless Tobacco: Never Alcohol Use Standard Drinks/Week Comments No 0 (1 standard drink = 0.6 oz pur e alcohol) [facility] Utilities Answer Date Recorded In the past 12 months has [employer], gas, oil, or water [employer] threatened to shut off services in your [...] any time in the past 12 m [facility], were you homeless or living in [...] mouth daily. documented as of this encounter Plan of Treatment Upcoming Encounters Date Type Department Care Team (Late st Contact Info) Description 06/26/2024 10:00 AM EST Hospital Encounter Non-[place]vasive [place] [address] Arrived documented as of this encounter Procedures Procedure Name Priority Date/Time Associated Diagnosis Comments PRO PM INTERROGATION REMOTE UP TO 90 DAYS Routine 02/14/2024 9:59 PM EDT documented in this encounter Results * Cardiac Device Check - Remote (02/14/2024 9:59 PM EDT) Anatomical Region Laterality Modality Other 02/14/2024 9:59 PM EDT Nikki Serrano MD IMPLANTABLE CARDIAC DEVICE documented in this encounter Visit Diagnoses Not on filedocumented in this encounter Care Teams Underwriting Manager Relationship Specialty Start Date End Date Devorah Epstein MD [facility] [address] [place] [address] PCP - General Family Medicine 09/01/17 documented as of this encounter
--- OUTSIDE RECORDS SUMMARY | 2024-04-29 19:12 | XMS_ITS | Encounter Summary ---
Author Organization [facility] Address [address] [place] [address] Care Team Providers Care Poultry Offal Worker Name Role Phone Devorah Epstein MD Primary Care Provider [phone] Reason for Visit * Reason Onset Date Comments Other 02/09/2018 Encounter Details Date Type Department Care Team (Late st Contact Info) Description 02/09/2018 Telephone [facility] Cardiology - [place] [address] Sergei Cristobal MD [address] [place] [address] [address] [place] [address] Other Social History Tobacco Use [...] Encounter - Amparo Sim RN - 02/09/2018 0973 EDT Noted. Thanks AMPARO SIM RN * [...] on filedocumented in this encounter Care Teams Poultry Offal Worker Relationship Specialty Start Date End Date Devorah Epstein MD [address] [place] [phone] PCP - General 11/04/15 documented as of this encounter
--- OUTSIDE RECORDS SUMMARY | 2024-04-29 19:12 | XMS_ITS | Referral Summary ---
Author Organization [facility] Address [address] [place] [address] Care Team Providers Care Stone Layout Marker Name Role Phone Devorah Epstein MD Primary Care Provider [phone] Allergies Active Allergy Reactions Criticality Noted Date [...] Date NSTEMI (non-ST elevated myocardial infarction) ( [facility]) 02/07/2018 MALCOM on CPAP 02/07/2018 Hypertension 02/07/2018 [...] Time Taken Comments Blood Pressure 129/71 02/07/2018 08 EDT Pulse - - Temperature 36.9 ??C (98.4 ??F) 02/07/2018 08 EDT Respiratory Rate 18 02/07/2018 0832 EDT Oxygen Saturation 96% 02/07/2018820 EDT Inhaled Oxygen Concentration - - Weight 125.2 kg (276 lb) 02/07/2018416 EDT Height 182.9 cm (6') 02/07/2018416 EDT Body Mass Index 37.43 02/07/2018416 EDT Plan of Treatment Not on file Advance Directives For more information, please contact: [phone] * Full Code (Latest Code Status on File) Date Activated Date Inactivated Comments 02/07/2018 4:31 02/07/2018 17:44 Question Answer Comments Reason for decision includes: Full code consistent with overall plan of care Who participated in the discussion? Not Discusse d Care Teams Stone Layout Marker Relationship Specialty Start Date End Date Devorah Epstein MD [address] [place] [phone] PCP - General 11/04/15
--- OUTSIDE RECORDS SUMMARY | 2024-04-29 19:12 | XMS_ITS | Encounter Summary ---
Author Organization [facility] Address [address] [place] [address] Care Team Providers Care Rn Examiner Name Role Phone Devorah Epstein MD Primary Care Provider [phone] Encounter Details Date Type Department Care Team (Late st Contact Info) Description 02/07/2018 13:20 EDT - 02/07/2018 13:23 EDT Hospital Encounter [address] [phone] Lisa Ashley MD [address] [place] [address], [address] [place] [phone] Discharge Disposition: Discharged to Other Facility Social [...] without esophagitis-K21.9[ICD-10-CM] I25.10 Atherosclerotic heart disease of [place] coronary artery without angina pectoris-I25.10[ICD-10-CM] Z95.1 Presence [...] on filedocumented in this encounter Care Teams Rn Examiner Relationship Specialty Start Date End Date Devorah Epstein MD [address] [place] [phone] PCP - General 11/04/15 documented as of this encounter
--- OUTSIDE RECORDS SUMMARY | 2024-04-29 19:12 | XMS_ITS | Encounter Summary ---
Author Organization [facility] Address [address] [place] [address] Care Team Providers Care Showroom Executive Director Name Role Phone Devorah Epstein MD Primary Care Provider [phone] Encounter Details Date Type Department Care Team (Latest Contact Info) Description 04/15/2019 14:44 EDT - 04/15/2019 23:59 EDT Hospital Encounter [address] [address] Unknown, Provider, Discharge Disposition: Home or Self [...] filedocumented in this encounter Care Teams Showroom Executive Director Relationship Specialty Start Date End Date Devorah Epstein MD [address] [place] [phone] PCP - General 11/04/15 documented as of this encounter
--- OUTSIDE RECORDS SUMMARY | 2024-04-29 19:12 | XMS_ITS | Encounter Summary ---
Author Organization [facility] Address [address] [place] [address] Care Team Providers Care Supervisor Hardboard Name Role Phone Devorah Epstein MD Primary Care Provider Encounter Details Date Type Department Care Team (Late st Contact Info) Description 03/24/2021 Lab Requisition [facility] Pathology & Laboratory Medicine - [address] [address] Outr Resulting Lab, Provider Social History Tobacco [...] acid-fast bacilli isolated VITEK SUSCEPTIBILITY 05/19/2021 13:29 [facility] AF[employer] Smear No Acid Fast Bacilli Seen 05/19/2021 13:29 [facility] Sputum COLLECTION OF INDUCED SPUTUM / Unknown 03/24/2021 10:40 EDT 03/24/2021 22:23 EDT Provider Outr Resulting Lab MICROBIOLOGY - GENERAL ORDERABLES [facility] [address] [place] [address] documented in this encounter Visit Diagnoses Not on filedocumented in this encounter Care Teams Supervisor Hardboard Relationship Specialty Start Date End Date Devorah Epstein MD [address] [place] [phone] PCP - General 11/04/15 documented as of this encounter
--- OUTSIDE RECORDS SUMMARY | 2024-04-29 19:12 | XMS_ITS | Encounter Summary ---
Author Organization [facility] Address [address] [place] [address] Care Team Providers Care Scourer Name Role Phone Devorah Epstein MD Primary Care Provider [phone] Encounter Details Date Type Department Care Team (Late st Contact Info) Description 03/26/2021 Lab Requisition [facility] Pathology & Laboratory Medicine - [address] [address] Outr Resulting Lab, Provider Social History Tobacco [...] for ID SEE NOTE(A) 05/06/2021 13:[address] [facility] Comment: SOURCE: SPUTUM, Sputum- slow growing gram positive bacilli, kinyoun positive, clear and colorless colonies on 7H11 agar CULTURE REFER FOR ID, MYCOBACTERIUM ?FINAL ??MYCOBACTERIUM AVIUM COMPLEX ?? Test Performed by: [facility] [address] [facility], [place] [address] Tractor Mechanic Apprentice: Tommy Kurtz M.D. Ph.D.; CLIA# [id number] Organism (organism) COLLECTION OF INDUCED SPUTUM / Unknown 03/26/2021 11:15 EDT 05/03/2021 15:08 EST Provider Outr Resulting Lab MICROBIOLOGY - GENERAL ORDERABLES [facility] [address] [place] [address] * (ABNORMAL) AF[employer] CULTURE/SMEAR, OTHER (03/26/2021 11:15 EDT) Organism ID Mycobacterium avium complex(A) [facility] SUSCEPTIBILITY 05/24/2021 10:01 EST [facility] Comment:Assayed by [facility], [place], [place] AFB Smear No Acid Fast Bacilli Seen 05/24/2021 10:01 EST [facility] Sputum COLLECTION OF INDUCED SPUTUM / Unknown 03/26/2021 11:15 EDT 03/26/2021 22:31 EDT Provider Outr Resulting Lab MICROBIOLOGY - GENERAL ORDERABLES [facility] [address] [place] [address] documented in this encounter Visit Diagnoses Not on filedocumented in this encounter Care Teams Scourer Relationship Specialty Start Date End Date Devorah Epstein MD [address] [place] [phone] PCP - General 11/04/15 documented as of this encounter
--- OUTSIDE RECORDS SUMMARY | 2024-04-29 19:12 | XMS_ITS | Encounter Summary ---
Author Organization [facility] Address [address] [place] [address] Care Team Providers Care Black Mill Operator Name Role Phone Devorah Epstein MD Primary Care Provider [phone] Encounter Details Date Type Department Care Team (Late st Contact Info) Description 04/15/2019 Results Only [facility] [place] [facility] [phone] Siena Valenzuela, DO [address] [address] Social History Tobacco Use Types [...] ? SERGE MARKS ? Accession #: ? [id number] ? : ? 1940 (Age: 78) ??M [...] (ASCP) 04/16/2019 4:20 PM End of Report [facility] 04/15/2019 15:5 9 EDT 04/16/2019 15:59 EDT Siena Valenzuela DO PATHOLOGY ORDERABLES [facility] [address] [place] [address] documented in this encounter Visit Diagnoses Not on filedocumented in this encounter Care Teams Black Mill Operator Relationship Specialty Start Date End Date Devorah Epstein MD [address] [place] [phone] PCP - General 11/04/15 documented as of this encounter
--- OUTSIDE RECORDS SUMMARY | 2024-04-29 19:12 | XMS_ITS | Encounter Summary ---
Author Organization [facility] Address [address] [place] [address] Care Team Providers Care Baby Sitter Name Role Phone Devorah Epstein MD Primary Care Provider Encounter Details Date Type Department Care Team (Late st Contact Info) Description 07/04/2022 Lab Requisition [facility] Pathology & Laboratory Medicine - [address] [address] Outr Resulting Lab, Provider Social History Tobacco [...] PSA 2.4 <=6.5 ng/mL 07/04/2022 22:58 EST [facility] Blood VENOUS BLOOD / Unknown 07/04/2022 11:15 EST 07/04/2022 17:01 EST Narrative [facility] - 07/04/2022 22:58 EST NOTE: Serum PSA concentration should not be interpreted as absolute evidence for the presence or absence of malignant disease. Assayed on Siemens ADVIA [employer] XPT using chemiluminescent technology.??Values obtained by using different assay methods cannot be used interchangeably. Provider Outr Resulting Lab CHEMISTRY & BLOOD GAS ORDERABLES [facility] [address] [place] [address] documented in this encounter Visit Diagnoses Not on filedocumented in this encounter Care Teams Baby Sitter Relationship Specialty Start Date End Date Devorah Epstein MD [address] [place] [phone] PCP - General 11/04/15 documented as of this encounter
--- OUTSIDE RECORDS SUMMARY | 2024-04-29 19:12 | XMS_ITS | Encounter Summary ---
Author Organization [facility] Address [address] [place] [address] Care Team Providers Care Retail Loan Officer Name Role Phone Devorah Epstein MD Primary Care Provider [phone] Encounter Details Date Type Department Care Team (Late st Contact Info) Description 08/24/2017 Historical Results Only [facility] [address] [place] [address] Unknown, Provider, Social History Tobacco Use Types [...] 08/24/2017 14:03 EST ? [facility] ?[address] [address] ? [id number] ?C A R D I A C ?S T R E S S ?T E S T ?R E P O R T NAME: SERGE MARKS ? : 40 TELEPHONE: [phone] ? MR#: [id number] ? *[facility]* *[facility]* [address] [place] [address] Date of study: 08/24/2017 Stress Echocardiography Dario [...] procedure. This study was interpreted by [facility] [place] [facility]. Pertinent images and digital data are archived for permanent storage and are available for subsequent review. ??Study status: ? [facility] ?[address] [place], [place] [address] ? [id number] ?C A R D I A C ?S T R E S S ?T E S T ?R E P O R T NAME: SERGE MARKS ? : 40 TELEPHONE: [phone] ? MR#: [id number] ? Routine. Stress echocardiography. ??2D, limited spectral [...] heart rate was ? [facility] ?[facility] [address] [place] [address] ? [id number] ?C A R D I A C ?S T R E S S ?T E S T ?R E P O R T NAME: SERGE MARKS ? : 40 TELEPHONE: [phone] ? MR#: [id number] ? 143bpm. The rate-pressure product for the peak heart rate and blood pressure was 57257aq Hg/min. Stress ECG: DECREASED FUNCTIONAL CAPACITY POOR [...] MD 08/24/2017 18:14 Procedure Note Cristobal Marie - 04/14/2019 [facility] [address] [place], [place] [address] [id number] C A R D I A C S T R E S S T E S T R E P O R T NAME: SERGE MARKS PDOB: [birth year] TELEPHONE: [phone] MR#: [id number] [id number] *[facility]* *[facility]* [address] [place] [address] Date of study: 08/24/2017 Stress Echocardiography Dario protocol 2D, limited spectral Doppler, and color Doppler *STUDY CONCLUSIONS* Impressions: LVOT obstruction maximum 2 m/s with Valsalva and with and after exercise. Significant EKG changes with exercise. Normal LV function with exercise; no stress echo imaging performed. This study assessed LVOT gradient with exercise. Summary: 1. Procedure narrative: Treadmill exercise testing was performed using the Draio protocol. The patient exercised for 4 min, [...] procedure. This study was interpreted by [facility] [place] [facility]. Pertinent images and digital data are archived for permanent storage and are available for subsequent review. Study status: [facility] [address] [place], [place] [address] [id number] C A R D I A C S T R E S S T E S T R E P O R T NAME: SERGE MARKS PDOB: [birth year] TELEPHONE: [phone] MR#: [id number] Routine. Stress echocardiography. 2D, limited spectral Doppler, [...] The maximal predicted heart rate was [facility] [address] [place], [place] [address] [id number] C A R D I A C S T R E S S T E S T R E P O R T NAME: SERGE MARKS PDOB: [birth year] TELEPHONE: [phone] MR#: [id number] 143bpm. The rate-pressure product for the peak heart rate and blood pressure was 48096tm Hg/min. Stress ECG: DECREASED FUNCTIONAL CAPACITY POOR [...] Cristobal Marie MD 08/24/2017 18:14 Provider Unknown MD CARDIAC ECHO ORDERAB LES documented in this encounter Visit Diagnoses Not on filedocumented in this encounter Care Teams Retail Loan Officer Relationship Specialty Start Date End Date Devorah Epstein MD [address] [place] [phone] PCP - General 11/04/15 documented as of this encounter
--- OUTSIDE RECORDS SUMMARY | 2024-04-29 19:12 | XMS_ITS | Encounter Summary ---
[place] [address] Care Team Providers Care Cuff Setter Lockstitch Name Role Phone Devorah Epstein MD Primary Care Provider [phone] Reason for Visit * Reason Onset Date Comments Other 12/06/2023 Implanted Cardia c Device Education Encounter Details Date Type Department Care Team (Late st Contact Info) Description 12/06/2023 Notes Only Cardiology at [address] [phone] Carli Foote (Implanted Cardiac Device Education) Social History Tobacco Use Types Packs/Day Years Used Date Smoking Tobacco: Former Smokeless Tobacco: Never Alcohol Use Standard Drinks/Week Comments No 0 (1 standard drink = 0.6 oz pur e alcohol) [facility] Utilities Answer Date Recorded In the past 12 months has [employer], gas, oil, or water [employer] threatened to shut off services in your [...] any time in the past 12 m [facility], were you homeless or living in a retirement (including now)? No 12/04/2023 DH IPV Inpatient [...] to call the Cardiac Device Clinic at [phone] with any questions. I am in the process of arranging for his follow up care at [facility] Plan: Post op check: to be sched [...] AM EST Hospital Encounter [place] [address] Arrived documented as of this encounter Visit Diagnoses Not on filedocumented in this encounter Care Teams Cuff Setter Lockstitch Relationship Specialty Start Date End Date Devorah Epstein MD [address] [place] [address] PCP - General Family Medicine 09/01/17 documented as of this encounter
--- OUTSIDE RECORDS SUMMARY | 2024-04-29 19:12 | XMS_ITS | Encounter Summary ---
Author Organization [facility] Address [address] [place] [address] Care Team Providers Care Research Interviewer Name Role Phone Devorah Epstein MD Primary Care Provider [phone] Encounter Details Date Type Department Care Team (Late st Contact Info) Description 03/23/2021 Lab Requisition [facility] Laboratory Medicine - [address] [address] Outr Resulting Lab, Provider Social History Tobacco [...] IgE 15 <158 IU/mL 03/24/2021 8:56 EDT [facility] Blood VENOUS BLOOD / Unknown 03/22/2021 14:23 EDT 03/23/2021 16:25 EDT Provider Outr Resulting Lab CHEMISTRY & BLOOD GAS ORDERABLES Performing Organization Address City/[facility] Co de Phone Number [facility] [address] [place] [address] * (ABNORMAL) IMMUNOGLOBULINS (03/22/2021 14:23 EDT) IgG 760 610-1,616 mg/dL 03/24/2021 9:22 EDT [facility] IgA 190 85 - 499 mg/dL 03/24/2021 9:22 EDT [facility] IgM 23(L) 35 - 242 mg/dL 03/24/2021 9:22 EDT [facility] Blood VENOUS BLOOD / Unknown 03/22/2021 14:23 EDT 03/23/2021 16:25 EDT Provider Outr Resulting Lab CHEMISTRY & BLOOD GAS ORDERABLES Performing Organization Address [facility] de Phone Number [facility] [address] [place] [address] documented in this encounter Visit Diagnoses Not on filedocumented in this encounter Care Teams Research Interviewer Relationship Specialty Start Date End Date Devorah Epstein MD [address] [place] [phone] PCP - General 11/04/15 documented as of this encounter
--- OUTSIDE RECORDS SUMMARY | 2024-04-29 19:12 | XMS_ITS | Encounter Summary ---
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 +NSTEMI. had bypass in August 2018. denies current CP. is in NAD at this time Encounter Details Date Type Department Care Team (Late st Contact Info) Description 02/07/2018 4:31 EDT - 02/07/2018 15:[address] 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; Coronary artery disease involving [place] coronary artery of [place] heart, angina presence unspecified Discharge Disposition: Home [...] kidney, unspecified-Q61.3[ICD-10-CM] I25.10 Atherosclerotic heart disease of [place] coronary artery without angina pectoris-I25.10[ICD-10-CM] I10 Essential (primary) hypertension-I10[ICD-10-CM] M1A.9XX0 Chronic gout, unspecified, without tophus (tophi)-M1A.9XX0[ICD-10-CM] K21.9 Gastro-esophageal reflux disease without esophagitis-K21.9[ICD-10-CM] G47.33 Obstructive sleep apnea (adult) (pediatric)-G47.33[ICD-10-CM] E66.01 Morbid (severe) obesity due to excess calories-E66.01[ICD-10-CM] Z95.1 Presence of aortocoronary bypass graft-Z95.1[ICD-10-CM] Z79.82 USP (current) use of aspirin-Z79.82[ICD-10-CM] Z87.891 Personal history [...] Admitting Diagnosis: NSTEMI (non-ST elevated myocardial infarction) ([facility]) Final Hospital Diagnosis: Elevated troponin Additional Problems [...] file and he was subsequently transferred to [facility] for further evaluation. Workup at [facility] ED showed an ECHO with EF of 65-70% with no wall motion abnormalities noted. No pericardial effusion noted. Troponin peaked at 0.103. Patient continued to remain asymptomatic and improved. Was felt that the patient was low risk for ACS at this time. Instructed to follow up primary first aid attendant Dr. Marie following hospitalization.?? Allergies and Immunizations [...] Component Value Units Date/Time Bacterial Culture, Urine [[id number]] Collected: 02/07/18 0504 Lab Status: In process Updated: 02/07/18804 Last [...] 02/07/2018 Discharge Follow Up Appointments Outside of [facility] We Will Schedule Follow-up appointments and [...] Notes * Minh Parra RT - 02/07/2018 8477 EDT Respiratory Consult/Progress Note Indications for Respiratory [...] 02/07/18 * Astrid Melendez MD - 02/07/2018 2336 EDT Painting Trades Worker Addendum (please see hospitality intern/resident H&P for full details) 77yo M with [...] will consider LHC to eval grafts and [place] vessels. Will give [id number] prior to LHC if that route is decided upon Astrid Melendez, PGY-5 Painting Trades Worker Pager #[phone] Hernandez 01/02/18 TTE: 1. [...] file and he was subsequently transferred to [facility] for further evaluation. During my interview [...] LAD and SVG to OM) 08/2017 at [facility] with atrial fibrillation post-operatively - Pericardiocentesis November 2017 with removal of 1100 cc serous blood-tinged fluid and treated with aprednisone tap TTE 01/02/18 at [facility]: 1. The left ventricular chamber size is [...] continue losartan 25 mg daily GERD - SAILMAKER PPI replaced with pantoprazole Gout - continue [...] ??? Chest Pain arrived via EMS from [facility]. +NSTEMI. had bypass in August 2018. denies current CP. is in NADat this time HPI Evelia Boykin, am scribing for Lisa Ashley MD while he/she is personally performing the service. Evelia Whitmore 02/07/2018 8:08 Serge Cabrera is a 77 y.o. male with a history of MALCOM on CPAP, HTN, polycystic kidney disease,GERD, and diverticulitis presenting via transfer from [facility] with NSTEMI. Patient initially began experiencing diaphoresis and chest pressure yesterday. Troponin at OSH was positive and he wastransferred to [facility] ED for further evaluation. On arrival [...] WITH DIFF, CMP Final Number for problems [id number] (ED) Final URINE CULTURE IF UA POSITIVE - NON POCT URINALYSIS ONLY Culture if Indicated Culture indicated by urinalysis results. Final ED/URGENT CARE ADD-ON Tests to be added PT Final Number for problems [id number] (ED) Final MAGNESIUM Magnesium 1.9 Final TSH TSH 0.83 Final INPATIENT ADD-ON Tests to be added NTPROBNP Final Number for problems [id number] Final Accession number Final Value: [id number] FOR CRPP ONLY LET DR LISA CHAMPAGNE [...] in August 2017 presenting via transfer from [facility] with NSTEMI. The patient had an EKG [...] Final diagnoses: NSTEMI (non-ST elevated myocardial infarction) ([facility]) Elevated troponin Coronary artery disease involving other [...] the Emergency Department: Stable PCP: Devorah Epstein [facility] 02/08/2018 13:46 No flowsheet data found. This [...] EDT) 02/09/2018 10:5 3 EDT Scan 2 Loom Checker PROCEDURE/MINOR ADITYA GICAL ORDERABLES * ECG REPORT - SCANNED (02/08/2018 15:24 EDT) 02/08/2018 15:2 4 EDT Scan 2 Loom Checker PROCEDURE/MINOR ADITYA GICAL ORDERABLES * (ABNORMAL) HEPARIN LEVEL - UNFRACTIONATED HEPARIN (02/07/2018 12:27 EDT) [facility] Heparin Level-UFH 1.26(HH) IU/mL 018 13:05 EDT [facility] Comment: Unfractionated heparin therapeutic [...] Ashley MD HEMATOLOGY & PF4 OR DERABLES [facility] [address] [place] [address] * (ABNORMAL) TROPONIN I (02/07/2018 10:54 EDT) Troponin I (ng/mL) 0.102(H) <0.034 ng/ml 02/07/2018 12:49 EDT [facility] Comment: The results of this assay can be falsely lowered due to the consumption of Biotin. Blood specimen (specimen) BLOOD SPECIMEN / Unknown 02/07/2018 10:54 EDT 02/07/2018 12:14 EDT Lisa Champagne DO CHEMISTRY & BLOOD GAS ORDERABLES [facility] [address] [place] [address] * ECHOCARDIOGRAM (02/07/2018 10:35 EDT) Anatomical Region Laterality Modality Other 02/07/2018 10:3 5 EDT Narrative 02/07/2018 11:10 EDT *Interpreting Group:* *[facility]* [address] [place] [address] Date of study: 02/07/2018 Transthoracic Echocardiography M-mode, [...] Epstein ATTENDING ?Lisa Ashley PERFORMING ?? Uvmm, TURBINE MECHANIC ??Forest Dong ORDERING ? Lisa Champagne Do REFERRING ?Lisa Champagne Do *PROCEDURE DATA* Procedure information: ??The patient was identified by two identifiers. This study was interpreted by [facility]. Pertinent images and digital [...] acoustic windows. Images were obtained using an [employer]q 11 cardiac ultrasound machine. Image quality was [...] Mcgowan MD - 02/07/2018 *Interpreting Group:* *[facility]* [address] [place] [address] Date of study: 02/07/2018 Transthoracic Echocardiography M-mode, [...] Devorah Epstein ATTENDING Lisa Ashley PERFORMING Uvc, TURBINE MECHANIC Forest Dong ORDERING Lisa Champagne Do REFERRING Lisa Champagne Do *PROCEDURE DATA* Procedure information: The patient was identified by two identifiers. This study was interpreted by [facility]. Pertinent images and digital [...] to be added NTPROBNP 02/07/2018 5:58 EDT [facility] Comment:CRP Number for problems [id number] 02/07/2018 7:26 EDT [facility] Accession number [id number] FOR CRPP ONLY LET DR LISA CHAMPAGNE KNOW THAT PT HAD NTBNP AND NO OTHER SAMPLE TO ADD ANOTHER ONE TO 02/07/2018 7:26 EDT [facility] TOPOGRAPHY UNKNOWN / Unknown 02/07/2018 6:00 EDT 02/07/2018 7:25 EDT Astrid Melendez MD HEMATOLOGY & PF4 ORD ERABLES Performing Organization Address City/State/[facility] Co de Phone Number [facility] [address] [place] [address] * EKG 12-LEAD (02/07/2018 5:55 EDT) 02/07/2018 5:55 EDT Narrative [facility] - 02/08/2018 15:20 EDT ?[facility] Emergency ? Test Date: ?2018-02-07 Pat Name: ? SERGE CABRERA ? Department: ?? ED ? Room: ? AC07 Gender: ? Male ? Watch Repair Person: ?? [id number] : ?1940 ? Requested By: EDNA SILVERIO Order Number: [id number] ? Reading : ?? BRIGIDO CHOWDHURY MD ? Measurements Intervals ?Camino ? Rate: ? 65 ? P: ?-30 WA: ? 210 ?QRS: ?64 QRSD: ? 94 [...] Note Brigido Chowdhury MD - 02/08/2018 [facility] Test Date: 2018-02-07 Pat Name: SERGE CABRERA Department: ED Room: [facility] Gender: Male Watch Repair Person: [id number] : 1940 Requested By: EDNA SILVERIO Order Number: [id number] Reading MD: BRIGIDO CHOWDHURY MD Measurements Intervals Camino Rate: 65 P: -30 WA: 210 QRS: 64 QRSD: 94 T: -73 [...] Lisa Champagne DO CARDIAC ECG ORDERA BLES [facility] * BACTERIAL CULTURE, URINE (02/07/2018 5:47 EDT) Result Greater than 100,000 CFU/ml ESCHERICHIA COLI 02/08/2018 13:51 EDT [facility] URINE / Unknown 02/07/2018 [...] 100,000 cfu/ml escherichia coli Piperacillin Tazobactam SUSCEPTIBILITY (VERONIAC) Susceptible Greater than 100,000 cfu/ml escherichia coli [...] only cefpodoxime and cephalexin are on the [facility] inpatient formulary. Sergei Cristobal MD MICROBIOLOGY - GENE RAL ORDERABLES Performing Organization Address [facility] Co de Phone Number [facility] [address] [place] [address] * URINE CULTURE IF UA POSITIVE - NON POCT URINALYSIS ONLY (02/07/2018 5:47 EDT) Culture if Indicated Culture indicated by urinalysis results. 02/07/2018 6:49 EDT [facility] Urine specimen (specimen) TOPOGRAPHY UNKNOWN / Unknown 02/07/2018 5:47 EDT 02/07/2018 6:10 EDT Lisa Champagne DO MICROBIOLOGY - GEN ERAL ORDERABLES Performing Organization Address [facility]/ZIP Co de Phone Number [facility] [address] [place] [address] * (ABNORMAL) UA, CHEMICAL AND SEDIMENT ANALYSIS (DIPSTICK AND MICROSCOPIC) (02/07/2018 5:47 EDT) Color, UA Yellow 02/07/2018 6:49 EDT [facility] Clarity, UA Clear 02/07/2018 6:49 EDT [facility] Glucose, UA Neg Neg 02/07/2018 6:49 EDT [facility] Bilirubin, UA Neg Neg 02/07/2018 6:49 [facility] Ketones, UA Neg Neg 02/07/2018 6:49 [facility] Refractometer SG,Urine 1.007 1.001 - 1.035 02/07/2018 6:49 [facility] Blood, UA 1+(A) Neg 02/07/2018 6:49 [facility] pH, UA 6.5 4.6 - 8.0 02/07/2018 6:49 [facility] Protein, UA Neg Neg 02/07/2018 6:49 [facility] Urobilinogen, UA Normal Normal E.U./dl 02/07/2018 6:49 [facility] Nitrite, UA Neg Neg 02/07/2018 6:49 [facility] Leuk Esterase 2+(A) Neg 02/07/2018 6:49 [facility] UA Method Used 02/07/2018 4:52 [facility] Comment: Testing performed using Bloson AU-4050. Urine RBC Count Automated 0 to 2 0 to 2 /HPF 02/07/2018 6:49 [facility] Urine WBC Count Automated 11 to 50(A) 0 to 3 /HPF 02/07/2018 6:49 [facility] Urine Squamous Epithelial Cell Count, Automated None seen None seen /LPF 02/07/2018 6:49 [facility] Urine Hyaline Casts, Automated < or = 10 < or = 10 /LPF 02/07/2018 6:49 [facility] Urine Bacteria Count, Automated Moderate(A) None seen 02/07/2018 6:49 [facility] UA Comment Sediment results 02/07/2018 6:49 [facility] Comment: are unreliable on urines unrefrig >2hrs or refrig >8hrs. Urine specimen (specimen) URINE / Unknown 02/07/2018 5:47 EDT 02/07/2018 6:10 EDT Lisa Champagne DO URINALYSIS ORDERAB LES [facility] [address] [place] [address] * ED/URGENT CARE ADD-ON (02/07/2018 5:25 EDT) Tests to be added PT 02/07/2018 5:26 EDT [facility] Comment:GLUCOSE, SERUM,MAGNE SIUM,HGB A1C,TSH,BNP Number for problems [id number] (ED) 02/07/2018 5:26 EDT [facility] TOPOGRAPHY UNKNOWN / Unknown 02/07/2018 5:25 EDT 02/07/2018 5:28 EDT Lisa Ashley MD HEMATOLOGY & PF4 OR DERABLES Performing Organization Address [facility] Co de Phone Number [facility] [address] [place] [address] * ED/URGENT CARE ADD-ON (02/07/2018 4:40 EDT) Tests to be added CBC WITH DIFF, CMP 02/07/2018 4:39 EDT [facility] Number for problems [id number] (ED) 02/07/2018 4:39 EDT [facility] TOPOGRAPHY UNKNOWN / Unknown 02/07/2018 4:40 EDT 02/07/2018 4:41 EDT Lisa Ashley MD HEMATOLOGY & PF4 OR DERABLES Performing Organization Address [facility]/ZIP Co de Phone Number [facility] [address] [place] [address] * (ABNORMAL) C REACTIVE PROTEIN (02/07/2018 4:23 EDT) C Reactive Protein 135.4(H) <10.0 mg/L 02/07/2018 8:45 EDT [facility] BLOOD SPECIMEN / Unknown 02/07/2018 4:23 EDT 02/07/2018 4:31 EDT Lisa Ashley MD CHEMISTRY & BLOOD G ORDERABLES Performing Organization Address [facility] Co de Phone Number [facility] [address] [place] [address] * TSH (02/07/2018 4:23 EDT) Pathologist [facility] TSH 0.83 0.47 - 4.68 uIU/ml 02/07/2018 6:47 EDT [facility] Comment: The results of this assay can be falsely lowered due to the consumption of Biotin. BLOOD SPECIMEN / Unknown 02/07/2018 4:23 EDT 02/07/2018 4:31 EDT Lisa Ashley MD CHEMISTRY & BLOOD G ORDERABLES Performing Organization Address [facility] de Phone Number [facility] [address] [place] [address] * (ABNORMAL) PROTIME (02/07/2018 4:23 EDT) [facility] Pro Time 15.0(H) 10.3 - 13.4 secs 02/07/2018 5:42 EDT [facility] I.N.R. 1.3(H) 0.9 - 1.1 Ratio 02/07/2018 5:42 EDT [facility] Comment: Moderate Intensity Coumadin INR = 2.0-3.0 Adjustments in anticoagulant therapy dose should be based upon the INR and NOT the Pro Time. BLOOD SPECIMEN / Unknown 02/07/2018 4:23 EDT 02/07/2018 4:31 EDT Lisa Ashley MD HEMATOLOGY & PF4 OR DERABLES Performing Organization Address [facility] Co de Phone Number [facility] [address] [place] [address] * (ABNORMAL) NT PRO BNP (02/07/2018 4:23 EDT) [facility] NT Pro BNP 2,360(H) <300 pg/ml 02/07/2018 6:35 EDT [facility] Comment: Reference Range: NT-proBNP [...] & BLOOD G ORDERABLES Performing Organization Address [facility] Co de Phone Number [facility] [address] [place] [address] * MAGNESIUM (02/07/2018 4:23 EDT) Magnesium 1.9 1.7 - 2.8 mg/dl 02/07/2018 6:17 EDT [facility] BLOOD SPECIMEN / Unknown 02/07/2018 4:23 EDT 02/07/2018 4:31 EDT Lisa Ashley MD CHEMISTRY & BLOOD G ORDERABLES Performing Organization Address [facility] de Phone Number [facility] [address] [place] [address] * HEMOGLOBIN A1C (02/07/2018 4:23 EDT) Hemoglobin A1C 6.3 % 02/07/2018 9:39 EDT [facility] Comment: Reference Range: <5.7% Normal 5.7-6.4% Prediabetes =>6.5% Diagnostic for diabetes (if confirmed) Goals for glycemic control in diabetes ADA 2017 For non adults with diabetes: ?? Target <7.5% For children and adolescents with type 1 diabetes: ?? Target <7.0% More or less stringent targets may be appropriate for individual patients. Est Avg Glucose 134 mg/dl 8 9:39 EDT [facility] Comment: eAG represents the A1c result expressed as average glucose in mg/dl. BLOOD SPECIMEN / Unknown 02/07/2018 4:23 EDT 02/07/2018 4:31 EDT Lisa Ashley MD CHEMISTRY & BLOOD G ORDERABLES [facility] [address] [place] [address] * (ABNORMAL) COMPREHENSIVE METABOLIC PANEL (CMP) (02/07/2018 4:23 EDT) Potassium 3.6 3.5 - 5.0 mEq/L 02/07/2018 5:03 [facility] Sodium 137 136 - 145 mEq/L 02/07/2018 5:03 [facility] Chloride 102 96 - 110 mEq/L 02/07/2018 5:03 [facility] CO2 24 22 - 32 mEq/L 02/07/2018 5:03 [facility] Total Alkaline Phosphatase 62 38 - 126 U/L 02/07/2018 5:03 [facility] Bilirubin, Total 1.2 <1.4 mg/dl 02/08/20 18 5:03 [facility] AST 19 15 - 46 U/L 02/07/2018 5:03 [facility] ALT 17(L) 21 - 72 U/L 02/07/2018 5:03 [facility] Albumin 4.1 3.4 - 4.9 g/dl 02/07/2018 5:03 [facility] Total Protein 6.3 6.3 - 8.2 g/dl 02/07/2018 5:03 [facility] Creatinine 1.14 0.66 - 1.25 mg/dl 02/07/2018 5:03 [facility] GFR, Calculated 62 >60 ml/min/1.7 3m2 02/07/2018 5:03 [facility] Comment: eGFR calculated using CKD-EPI equation for non Americans. Multiply eGFR by 1.16 for Americans. BUN 19 10 - 26 mg/dl 02/07/2018 5:03 [facility] Calcium 9.9 8.5 - 10.5 mg/dl 02/07/2018 5:03 [facility] Calculated Calcium 9.8 8.5 - 10.5 mg/dl 02/07/2018 5:03 [facility] Glucose, Serum 133(H) 70 - 100 mg/dl 02/07/2018 5:03 [facility] Fasting? Unknown 02/07/2018 4:41 [facility] BLOOD SPECIMEN / Unknown 02/07/2018 4:23 EDT 02/07/2018 4:31 EDT Lisa Ashley MD CHEMISTRY & BLOOD G ORDERABLES [facility] [address] [place] [address] * (ABNORMAL) COMPLETE BLOOD COUNT AND DIFFERENTIAL (02/07/2018 4:23 EDT) WBC 7.14 4.0 - 10.4 K/cmm 02/07/2018 4:46 [facility] RBC 4.92 4.36 - 5.78 M/cmm 02/07/2018 4:46 [facility] Hemoglobin 11.8(L) 13.8 - 17.3 gm/dl 02/07/2018 4:46 [facility] HCT 37.3(L) 39.5 - 50.2 % 02/07/2018 4:46 [facility] MCV 76(L) 81 - 95 fl 02/07/2018 4:46 [facility] MCH 24.0(L) 27.6 - 33.0 pg 02/07/2018 4:46 [facility] Hypochromia 1+ 02/07/2018 4:46 [facility] MCHC 31.6(L) 32.8 - 36.4 gm/dl 02/07/2018 4:46 [facility] RDW-CV 17.8(H) <14.2 % 02/07/2018 4:46 [facility] RDW-SD 48.4(H) <46.0 fl 02/07/2018 4:46 [facility] Anisocytosis 1+ 02/07/2018 4:46 [facility] PLT 150 141 - 377 K/cmm 02/07/2018 4:46 [facility] MPV 9.0(L) 9.5 - 12.7 fl 02/07/2018 4:46 [facility] % Neutrophils 71.8 % 02/07/2018 4:46 [facility] % Lymphocytes 15.3 % 02/07/2018 4:46 [facility] % Monocytes 10.4 % 02/07/2018 4:46 [facility] % Eosinophils 0.8 % 02/07/2018 4:46 [facility] % Basophils 0.4 % 02/07/2018 4:46 [facility] % Immature Grans 1.3 % 02/08/20 18 4:46 [facility] ABS Neutrophils 5.13 2.20 - 8.85 K/cmm 02/07/2018 4:46 [facility] ABS Lymphs 1.09 1.09 - 3.30 K/cmm 02/07/2018 4:46 [facility] ABS Monocytes 0.74 0.1 - 0.8 K/cmm 02/07/2018 4:46 [facility] ABS Eosinophils 0.06 0.03 - 0.61 K/cmm 02/07/2018 4:46 [facility] ABS Basophils 0.03 0.01 - 0.11 K/cmm 02/07/2018 4:46 [facility] ABS Immature Grans 0.09(H) 0 - 0.06 K/cmm 02/07/2018 4:46 [facility] Type of Diff: Automated 02/07/2018 4:46 [facility] BLOOD SPECIMEN / Unknown 02/07/2018 4:23 EDT 02/07/2018 4:31 EDT Lisa Ashley MD PACKAGES & DNA PROB E ORDERABLES Performing Organization Address [facility] Co de Phone Number [facility] [address] [place] [address] * HOLD LAVENDER TOP (02/07/2018 4:23 EDT) Hold Purple Top EDTA for hematology will be discarded after 48 hours, differential not available after 12 hours. 02/07/2018 4:15 EDT [facility] Blood specimen (specimen) BLOOD SPECIMEN / Unknown 02/07/2018 4:23 EDT 02/07/2018 4:31 EDT Lisa Ashley MD LAB INFO SERVICE AN D SUPPORT & PHONE RESULT Performing Organization Address [facility] Co de Phone Number [facility] [address] [place] [address] * HOLD SST (02/07/2018 4:23 EDT) Hold SST Hold for further testing. Specimen will be held for 5 days. 02/07/2018 4:15 EDT [facility] Blood specimen (specimen) BLOOD SPECIMEN / Unknown 02/07/2018 4:23 EDT 02/07/2018 4:31 EDT Lisa Ashley MD LAB INFO SERVICE AN D SUPPORT & PHONE RESULT Performing Organization Address [facility]/ZIP Co de Phone Number [facility] [address] [place] [address] * HOLD BLUE TOP (02/07/2018 4:23 EDT) Hold Blue Top Sample for coagulation will be discarded after 4 hours 02/07/2018 4:52 EDT [facility] Blood specimen (specimen) BLOOD SPECIMEN / Unknown 02/07/2018 4:23 EDT 02/07/2018 4:31 EDT Lisa Ashley MD LAB INFO SERVICE AN D SUPPORT & PHONE RESULT [facility] [address] [place] [address] * (ABNORMAL) TROPONIN I (02/07/2018 4:23 EDT) Troponin I (ng/mL) 0.103(H) <0.034 ng/ml 02/07/2018 5:03 EDT [facility] Comment: The results of this assay can be falsely lowered due to the consumption of Biotin. Blood specimen (specimen) BLOOD SPECIMEN / Unknown 02/07/2018 4:23 EDT 02/07/2018 4:30 EDT Lisa Ashley MD CHEMISTRY & BLOOD G ORDERABLES [facility] [address] [place] [address] * EKG 12-LEAD (02/07/2018 4:21 EDT) 02/07/2018 4:21 EDT Narrative [facility] - 02/09/2018 10:49 EDT ?[facility] ? Test Date: ?2018-02-07 Pat Name: ? SERGE CABRERA ? Department: ?? ED ? Room: ? Gender: ? Male ? Watch Repair Person: ?? [id number] : ?1940 ? Requested By: DELMI Peck Number: [id number] ? Reading MD: ?? JUVE ANGEL ? Measurements Intervals ?Camino ? Rate: ? 74 ? P: ?44 WA: ? 247 ?QRS: ?61 QRSD: ? 97 [...] Note Juve Angel MD - 02/09/2018 [facility] Test Date: 2018-02-07 Pat Name: SERGE CABRERA Department: ED Room: Gender: Male Watch Repair Person: [id number] : 1940 Requested By: DELMI Galan Order Number: [id number] Reading MD: JUVE ANGEL Measurements Intervals Camino Rate: 74 P: 44 WA: 247 QRS: 61 QRSD: 97 T: -75 [...] Lisa Ashley MD CARDIAC ECG ORDERAB LES [facility] documented in this encounter Visit Diagnoses Diagnosis Elevated troponin- Primary Other abnormal blood chemistry NSTEMI (non-ST elevated myocardial infarction) ([facility]) Acute myocardial infarction, subendocardial infarction, episode of care unspecified Elevated troponin Other abnormal blood chemistry 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
--- OUTSIDE RECORDS SUMMARY | 2024-04-29 19:12 | XMS_ITS | Encounter Summary ---
Author Organization [facility] Address [address] [place] [address] Care Team Providers Care Copy And Print Associate Name Role Phone Devorah Epstein MD Primary Care Provider [phone] Encounter Details Date Type Department Care Team (Late st Contact Info) Description 05/24/2021 Lab Requisition [facility] Pathology & Laboratory Medicine - [address] [address] Outr Resulting Lab, Provider Social History Tobacco [...] * RHEUMATOID FACTOR (05/24/2021 14:15 EST) Pathologist [facility] Rheumatoid Factor <8.6 <12.0 IU/mL 05/24/2021 21:33 EST [facility] Blood VENOUS BLOOD / Unknown 05/24/2021 14:15 EST 05/24/2021 20:58 EST Provider Outr Resulting Lab CHEMISTRY & BLOOD GAS ORDERABLES Performing Organization Address [facility] de Phone Number [facility] [address] [place] [address] * ANTI DNA (DOUBLE STRANDED) (05/24/2021 14:15 EST) Pathologist [facility] Anti-DNA (Double Stranded) 20.5 <30.0 IU/mL 05/25/2021 12:46 EST [facility] Comment: ? Negative: ??<30.0 IU/mL ? Borderline Positive: ??30.0 - 75.0 IU/mL ? Positive: ??>75.0 IU/mL Results were obtained with the Matchmaker VideosA Lite dsDNA SC ZOEY assay on the [employer]. Blood VENOUS BLOOD / Unknown 05/24/2021 14:15 EST 05/24/2021 20:58 EST Provider Outr Resulting Lab IMMUNOLOGY A ND SEROLOGY ORDERABLES Performing Organization Address [facility] de Phone Number [facility] [address] [place] [address] * (ABNORMAL) ANTI NUCLEAR AB (CAITLIN), IFA (05/24/2021 14:15 EST) [facility] CAITLIN Interpretation Positive(A) Negative 05/25/2021 11:50 EST [facility] Comment: For titers greater than [...] Pattern 1 1:320 Homogeneous 05/25/2021 11:50 EST [facility] Blood VENOUS BLOOD / Unknown 05/24/2021 14:15 EST 05/24/2021 20:58 EST Narrative [facility] - 05/25/2021 11:50 EST Results were obtained with the INOVA NOVA Lite HEp-2 CAITLIN Kit by indirect immunofluorescence. Provider Outr Resulting Lab IMMUNOLOGY A ND SEROLOGY ORDERABLES Performing Organization Address City/[facility]/ZIP Co de Phone Number [facility] [address] [place] [address] * CCP ANTIBODIES (05/24/2021 14:15 EST) CCP Antibodies <2.5 <5.0 U/mL 05/25/2021 9:54 EST [facility] Blood VENOUS BLOOD / Unknown 05/24/2021 14:15 EST 05/24/2021 20:58 EST Provider Outr Resulting Lab IMMUNOLOGY A ND SEROLOGY ORDERABLES Performing Organization Address City/[facility]/ZIP Co de Phone Number [facility] [address] [place] [address] documented in this encounter Visit Diagnoses Not on filedocumented in this encounter Care Teams Copy And Print Associate Relationship Specialty Start Date End Date Devorah Epstein MD [address] [place] [phone] PCP - General 11/04/15 documented as of this encounter
--- OUTSIDE RECORDS SUMMARY | 2024-04-29 19:12 | XMS_ITS | Encounter Summary ---
Author Organization [facility] Address [address] [place] [address] Care Team Providers Care Structural Design Engineer Name Role Phone Devorah Epstein MD Primary Care Provider [phone] Encounter Details Date Type Department Care Team (Late st Contact Info) Description 12/03/2023 Lab Requisition [facility] Pathology & Laboratory Medicine - [address] [address] Outr Resulting Lab, Provider Social History Tobacco [...] Lyme Ab Negative Negative 12/04/2023 10:26 EDT [facility] Blood VENOUS BLOOD / Unknown 12/02/2023 15:25 EDT 12/03/2023 15:46 EDT Provider Outr Resulting Lab IMMUNOLOGY A ND SEROLOGY ORDERABLES [facility] [address] [place] [address] documented in this encounter Visit Diagnoses Not on filedocumented in this encounter Care Teams Structural Design Engineer Relationship Specialty Start Date End Date Devorah Epstein MD [address] [place] [phone] PCP - General 11/04/15 documented as of this encounter
--- OUTSIDE RECORDS SUMMARY | 2024-04-29 19:12 | XMS_ITS | Encounter Summary ---
Author Organization [facility] Address [address] [place] [address] Care Team Providers Care Enchilada Maker Name Role Phone Devorah Epstein MD Primary Care Provider [phone] Encounter Details Date Type Department Care Team (Latest Contact Info) Description 06/03/2016 7:19 EST - 06/03/2016 23:59 EST Hospital Encounter [address] [address] Unknown, Provider, Discharge Disposition: Home or Self Care Social History Tobacco Use Types Packs/Day Years Used Date Smoking Tobacco: Never Assessed Sex and Gender Information Value Date Recorded Sex Assigned at Not on file Gender Identity Not on file Sexual Orientation Not on file documented as of this encounter Discharge Disposition Disposition Code Departure Means Destination Home or Self Skilled Nursing documented in this encounter Plan of Treatment Not on file documented as of this encounter Visit Diagnoses Not on filedocumented in this encounter Care Teams Enchilada Maker Relationship Specialty Start Date End Date Devorah Epstein MD [address] [place] [phone] PCP - General 11/04/15 documented as of this encounter
--- OUTSIDE RECORDS SUMMARY | 2024-04-29 19:12 | XMS_ITS | Encounter Summary ---
Author Organization [facility] Address [address] [place] [address] Care Team Providers Care Hadoop Analyst Name Role Phone Devorah Epstein MD Primary Care Provider [phone] Encounter Details Date Type Department Care Team (Late st Contact Info) Description 03/26/2021 Lab Requisition [facility] Pathology & Laboratory Medicine - [address] [address] Outr Resulting Lab, Provider Social History Tobacco [...] acid-fast bacilli isolated VITEK SUSCEPTIBILITY 05/24/2021 10:00 [facility] AFB Smear No Acid Fast Bacilli Seen 05/24/2021 10:00 [facility] Sputum COLLECTION OF INDUCED SPUTUM / Unknown 03/25/2021 11:30 EDT 03/26/2021 18:46 EDT Provider Outr Resulting Lab MICROBIOLOGY - GENERAL ORDERABLES [facility] [address] [place] [address] documented in this encounter Visit Diagnoses Not on filedocumented in this encounter Care Teams Hadoop Analyst Relationship Specialty Start Date End Date Devorah Epstein MD [address] [place] [phone] PCP - General 11/04/15 documented as of this encounter
--- OUTSIDE RECORDS SUMMARY | 2024-04-29 19:12 | XMS_ITS | Encounter Summary ---
Author Organization [facility] Address [address] [place] [address] Care Team Providers Care Vessel Welder Name Role Phone Unknown, Provider Primary Care Provider Unava ilable Encounter Details Date Type Department Care Team ([facility] st Contact Info) Description 10/30/2015 Results Only [facility] [phone] Audi Srivastava DPM [address] [place] [phone] Social History Tobacco Use Types Packs/Day [...] when reading/interpreti ng unformatted reports. Name: ? ALCIRAWILLSERGE RAMOS ? Accession #: ? [id number] ? : ? 1940 (Age: 75) ??M [...] viable. Document reviewed and electronically signed by: DAINEL CANCINO MD Report ??Date: 11/06/2015 13:53 By [...] the dorsal surface there is a raised rcuz-white ulcer (0.5 x 0.4 x 0.1 cm). [...] firm material underlying the subcutaneous ulceration. ? Ops Manager sections are submitted as follows: BLOCK VANEGAS B1- ??ulceration to soft tissue margin B2- ??distal bone margin, en face, submitted for decalcification B3- ??cutaneous tissue with chalky cruz-white firm material Dr. Nix 11/02/2015 4:22 PM End of Report [facility] 10/30/2015 10:3 8 EDT 10/31/2015 10:38 EDT Audi Srivastava DPJacquie PATHOLOGY ORDERA CONSUELO [facility] [address] [place] [address] documented in this encounter Visit Diagnoses Not on filedocumented in this encounter Care Teams Vessel Welder Relationship Specialty Start Date End Date Unknown, Provider, PCP - General 11/02/15 11/03/15 documented as of this encounter
--- OUTSIDE RECORDS SUMMARY | 2024-04-29 19:12 | XMS_ITS | Clinical Summary ---
Author Organization [facility] Address [facility] [place] [address] Care Team Providers Care Refrigeration Manager Name Role Phone Devorah Epstein MD Primary Care Provider [phone] Allergies Active Allergy Reactions Criticality Noted Date [...] transient 12/02/2023 Pericardial effusion 11/30/2017 Atherosclerosis of [place] co ronary artery of [place] heart with angina pectoris 09/01/2017 Encounters Date Type Department Care Team Description 04/11/2024 Refill H[place]ology [place] [address] Darrell Gallardo MD 03/28/2024 10:00 AM EDT - 03/28/2024 11:59 PM EDT Hospital Encounter [place] [address] Discharge Disposition: Home from Last 3 Months Social History Tobacco Use Types Packs/Day Years Used Date Smoking Tobacco: Former Smokeless Tobacco: Never Alcohol Use Standard Drinks/Week Comments No 0 (1 standard drink = 0.6 oz pur e alcohol) [facility] Utilities Answer Date Recorded In the past 12 months has th e [employer], gas, oil, or water [employer] threatened to shut off services in your [...] any time in the past 12 m [facility], were you homeless or living in a [place] health care facility (including now)? No 12/04/2023 DH IPV Inpatient [...] AM EST Hospital Encounter [place] [address] Arrived Health Maintenance Due Date Last Done Comments Tetanus/Diphtheria/Pertussis Vaccines (1 - Tdap) 08/22 Zoster vaccine (1 of 2) 1990 Pneumoccocal Vaccine: 65+ (1 of 1 - PCV) 2005 Covid-19 Vaccine (1 - season) 2024 Influenza (Flu) vaccine (1 o f 1 - Influenza standard series) 02/25/2024 Medical Devices Implanted Type Area Sharebroker Device Identifier Shelf Expiration Date Model / Serial / Lot Cable,Cut,Edg ,Blnt,Ss,3tpr ([id number]) - [id number] Implanted:Qty : 4 on 09/11/2017 by Pablo Govea MD at [facility] IMPLANTS Midline: Sternum [employer] - [id number] 04/12/2022 [id number] / / [id number] Mdt Micra-12/05/19 24 Implanted:04/2024 by Heriberto Geronimo MD (Quantity not on file) Pacemaker Chest Wall [employer] - [id number] / [id number] / Procedures Procedure Name Priority Date/Time Associated Diagnosis Comments PRO PM INTERROGATION REMOTE UP TO 90 DAYS Routine 02/14/2024 9:59 PM EDT from Last 3 Months Results * Cardiac Device Check - Remote (02/14/2024 9:59 PM EDT) Anatomical Region Laterality Modality Other 02/14/2024 9:59 PM EDT Nikki Serrano MD IMPLANTABLE CARDIAC DEVICE from Last 3 Months Advance Directives Documents on File Type Date Recorded Patient [employer] Expl anation Advance Directives and Living Will 09/01/2017 4:24 PM Personal [employer] Net 09/01/2017 2:38 PM Sanna Cabrera * Attempt [...] Name Relationship Healthcare Agent Relationship Communication [facility] Care Agent [phone] (Mobile ) Care Teams Refrigeration Manager Relationship Specialty Start Date End Date Devorah Epstein MD [facility] [address] [facility] [address] [place] [address] PCP - General Family Medicine 09/01/17
--- OUTSIDE RECORDS SUMMARY | 2024-04-29 19:13 | XMS_ITS | Encounter Summary ---
[place] [address] Care Team Providers Care Bar Welder Name Role Phone Devorah Epstein MD Primary Care Provider [phone] Encounter Details Date Type Department Care Team (Late st Contact Info) Description 02/07/2018 [place] [address] Ramon Jack MD [facility] [place] [address] Social History Tobacco Use Types Packs/Day Years [...] call from Dr. Caceres at [facility] regarding Mr. Cabrera who is a 77 year old man with history of CAD s/p CABG (FRIAS-LAD, SVG-OM) in August 2017 who presented to [facility] with several day history of feeling unwell [...] heparin, give Plavix. The provider will contact [facility] to try to transfer there. I made the above recommendations with the information provided to me over the phone and not able tointerview or examine the patient myself. documented in this encounter Plan of Treatment Upcoming Encounters Date Type Department Care Team (Late st Contact Info) Description 06/26/2024 10:00 AM [facility] Hospital Encounter Non-Invasive [place] [address] Arrived documented as of this encounter Visit Diagnoses Not on filedocumented in this encounter Care Teams Bar Welder Relationship Specialty Start Date End Date Devorah Epstein MD [facility] [address] [place] [address] PCP - General Family Medicine 09/01/17 documented as of this encounter
--- OUTSIDE RECORDS SUMMARY | 2024-04-29 19:13 | XMS_ITS | Encounter Summary ---
Author Organization [facility] [place] [address] Care Team Providers Care Wheat Cleaner Name Role Phone Devorah Epstein MD Primary Care Provider [phone] Encounter Details Date Type Department Care Team (Late st Contact Info) Description 09/20/2023 3:10 PM EDT Ancillary Procedure Radiology Library at [facility] [place] [address] Mary Gregg MD [facility] [place] [address] Social History Tobacco Use Types Packs/Day Years [...] AM EST Hospital Encounter Non-Invasive Cardiology Lab [facility] [place] [address] Arrived documented as of this encounter Procedures Procedure Name Priority Date/Time Associated Diagnosis Comments FILM LIBRARY STORAGE ONLY CT CHEST Routine 09/20/2023 3:09 PM EDT documented in this encounter Results * Film Library- Storage Only CT Chest (09/20/2023 3:09 PM EDT) Narrative ZARIA - 09/20/2023 3:09 PM EDT This exam is auto-finalizing. It's purpose is for storage only. Mary Gregg MD IMG FILM LIBRARY ORD ERABLES Performing Organization Address City/State/[facility] Co de Phone Number [place], [place] documented in this encounter Visit Diagnoses Not on filedocumented in this encounter Care Teams Wheat Cleaner Relationship Specialty Start Date End Date Devorah Epstein MD [address] [place] [address] PCP - General Family Medicine 09/01/17 documented as of this encounter
--- OUTSIDE RECORDS SUMMARY | 2024-04-29 19:13 | XMS_ITS | Encounter Summary ---
Author Organization [facility] [place] [address] Care Team Providers Care Wind Turbine Service Technician Name Role Phone Devorah Epstein MD Primary Care Provider [phone] Encounter Details Date Type Department Care Team (Late st Contact Info) Description 09/16/2023 Ancillary Procedure Radiology Library at [facility] [place] [address] Mary Gregg MD [facility] [address] Social History Tobacco Use Types Packs/Day Years [...] EST Hospital Encounter Non-Invasive Cardiology Lab [facility] [place] [address] Arrived documented as of this encounter Procedures Procedure Name Priority Date/Time Associated Diagnosis Comments FILM LIBRARY STORAGE ONLY DX LOWER EXTREMITY Routine 09/16/2023 12:00 AM EDT documented in this encounter Results * Film Library- Storage Only DX Lower Extremity (09/16/2023 12:00 AM EDT) Narrative ZARIA - 09/20/2023 3:10 PM EDT This exam is auto-finalizing. It's purpose is for storage only. Mary Gregg MD IMG FILM LIBRARY ORD ERABLES Performing Organization Address City/State/[facility] Co de Phone Number [place], [place] documented in this encounter Visit Diagnoses Not on filedocumented in this encounter Care Teams Wind Turbine Service Technician Relationship Specialty Start Date End Date Devorah Epstein MD [address] [place] [address] PCP - General Family Medicine 09/01/17 documented as of this encounter
--- OUTSIDE RECORDS SUMMARY | 2024-04-29 19:13 | XMS_ITS | Encounter Summary ---
Author Organization [facility] [place] [address] Care Team Providers Care Bonding Machine Setter Name Role Phone Devorah Epstein MD Primary Care Provider [phone] Encounter Details Date Type Department Care Team (Latest Contact Info) Description 01/02/2018 2:53 PM EDT - 01/02/2018 11:59 PM EDT Hospital Encounter XRay at [address] [place] [address] Pablo Govea MD Pericardial effusion Discharge Disposition: Home Social History [...] AM EST Hospital Encounter Non-[place] [address] Arrived documented as of this [...] pericardium documented in this encounter Care Teams Bonding Machine Setter Relationship Specialty Start Date End Date Devorah Epstein MD [facility] S[address] [facility] [address] [place] [address] PCP - General Family Medicine 09/01/17 documented as of this encounter
--- OUTSIDE RECORDS SUMMARY | 2024-04-29 19:13 | XMS_ITS | Encounter Summary ---
[place] [address] Care Team Providers Care Gang Hemstitching Machine Operator Name Role Phone Devorah Epstein MD Primary Care Provider [phone] Encounter Details Date Type Department Care Team (Late st Contact Info) Description 09/20/2023 External [place] [address] Social History Tobacco Use Types Packs/Day Years [...] AM EST Hospital Encounter [place] [address] Arrived documented as of this encounter Procedures Procedure Name Priority Date/Time Associated Diagnosis Comments ECG SCAN Routine 09/20/2023 3:11 PM EDT documented in this encounter Results * Scan Doc: ECG (09/20/2023 3:11 PM EDT) Historical Provider MD RAMEY MGR SCAN EX T ORDR/RSLT documented in this encounter Visit Diagnoses Not on filedocumented in this encounter Care Teams Gang Hemstitching Machine Operator Relationship Specialty Start Date End Date Devorah Epstein MD [facility] [address] [place] [address] PCP - General Family Medicine 09/01/17 documented as of this encounter
--- OUTSIDE RECORDS SUMMARY | 2024-04-29 19:13 | XMS_ITS | Encounter Summary ---
[place] [address] Care Team Providers Care Talent Development Consultant Name Role Phone Devorah Epstein MD Primary Care Provider [phone] Reason for Visit * Auth/Cert (Routine) Specialty Diagnoses / Procedures Referred By Binh taylor Referred To Contact Diagnoses Atrial fib/flutter, transient bradycardia Albert Oreilly MD [facility] [place] [address] [facility] Referral ID Status Reason Start Date Expiration Date Visits Re quested Visits Authorized [id number] 1 1 Encounter Details Date Type Department Care Team (Late st Contact Info) Description 12/05/2023 3:04 PM EDT Anesthesia Event [place] [address] Drake Lake MD [facility] [place] [address] Tez Daniel MD [facility] [place] [address] Anesthesia Record Procedure Summary Procedure Name Responsible [...] CRNA LDA Cath/EP Sheath 12/05/23; 1548; 26 Guatemalan (Fr) (Upsized from 8F); Right; Femoral; Venous 12/05/23 1548 by Flaquita Camarena RN 12/05/23 1644 by Flaquita Camarena RN documented in this encounter Social History Tobacco Use Types Packs/Day Years Used Date Smoking Tobacco: Former Smokeless Tobacco: Never Alcohol Use Standard Drinks/Week Comments No 0 (1 standard drink = 0.6 oz pur e alcohol) [facility] Utilities Answer Date Recorded In the [...] any time in the past 12 m [facility], were you homeless or [...] Procedure Summary Date: 12/05/23 Room / Location: [facility] B-LAB ROOM 4 / [facility] EP LABS Anesthesia Start: 1504 Anesthesia Stop: 1749 Procedure: ELECTROPHYSIOLOGY PROCEDURE (Left) Diagnosis: ([place] WITH AF) Providers: Heriberto Geronimo MD Responsible Provider: Drake Lake MD Anesthesia Type: general ASA Status: 3 All Anesthesia Providers: Anesthesiologist: Drake Lake MD CUSTOMER ACCOUNT ADMINISTRATOR: Partha Milner CRNA Armhole Raiser Lockstitch: Tez Daniel MD Vitals Value Taken Time BP 122/69 12/05/231944 Temp 36.4 ??C (97.5 ??F) 12/05/23 1930 Pulse 61 12/05/235 Resp 13 12/05/231944 SpO2 100 % 12/05/231945 Pain Level 2 12/05/231944 Vitals shown include unfiled device data. Patient Location: PACU/[facility] Level of Consciousness: Awake and Alert Pain [...] ??? Pericardial effusion 11/30/2017 ??? Atherosclerosis of [place] coronary artery of [place] heart with angina pectoris 09/01/2017 No past medical history on file. Past Surgical History: Procedure Laterality Date ??? PRO CABG, ARTERIAL, SINGLE N/A 09/11/2017 @CABG, USING ARTERIAL GRAFT;SINGLE ARTERIAL GRAFT (WRVU 33.75) performed by Pablo Govea MD at [facility] MAIN OR ??? PRO CABG, ARTERY-VEIN, SINGLE N/A 09/11/2017 @CABG, VENOUS & ARTERIAL GRAFT;SINGLE VEIN GRAFT (WRVU 3.61) performed by Pablo Govea MD at [facility] MAIN OR ??? PRO ENDOSCOPY W/VIDEO-ASST VEIN HARVEST, CABG Right 09/11/2017 ENDOSCOPIC HARVEST VEIN(S) FOR CABG (WRVU 0.31) performed by Pablo Govea MD at [facility] MAIN OR Social History Tobacco Use [...] monitoring -PIV access Tez B Fredy, MD Armhole Raiser Lockstitch, PGY2/CA1 Pager # [phone] Region - Other Informed Consent: Anesthetic plan and risks discussed with patient. Plan discussed with attending, resident and CUSTOMER ACCOUNT ADMINISTRATOR. Anesthesia Screening documented in this encounter Plan of Treatment Upcoming Encounters Date Type Department Care Team (Late st Contact Info) Description 06/26/2024 10:00 AM [facility] Hospital Encounter [place] [id number] Arrived documented as of this encounter Visit [...] mg documented in this encounter Care Teams Talent Development Consultant Relationship Specialty Start Date End Date Devorah Epstein MD [address] [place] [address] PCP - General Family Medicine 09/01/17 documented as of this encounter
--- OUTSIDE RECORDS SUMMARY | 2024-04-29 19:13 | XMS_ITS | Encounter Summary ---
[place] [address] Care Team Providers Care Application Coordinator Name Role Phone Devorah Epstein MD Primary Care Provider [phone] Reason for Referral * Consultation (Routine) - Closed Specialty Diagnoses / Procedures Referred By Contac t Referred To Contact Cardiology Diagnoses Atrial fib/flutter, transient AF & CHB EF 63%, s/p micra placement. Darrell Gallardo MD [facility] DR HEMATOLOGY/[place] [address] [facility] [address] [place] [phone] Referral ID Status Reason Start Date Expiration Date V isits Requested Visits Authorized [id number] Closed Consult, Test & Treat 12/06/2023 12/05/2024 1 1 Reason for Visit * Auth/Cert (Routine) Specialty Diagnoses / Procedures Referred By Contac t Referred To Contact Diagnoses Atrial fib/flutter, transient bradycardia Albert Oreilly MD [facility] [place] [address] [facility] Referral ID Status Reason Start Date Expiration Date Visits Re quested Visits Authorized [id number] 1 1 Encounter Details Date Type Department Care Team (Latest Contact Info) Description 12/02/2023 10:47 PM EDT - 12/06/2023 2:40 PM EDT Hospital Encounter Heart and Vascular Unit Level 4 Wing B [place] [address] Albert Oreilly MD [facility] [place] [address] Atrial fib/flutter, transient Discharge Disposition: Home Social History Tobacco Use Types Packs/Day Years Used Date Smoking Tobacco: Former Smokeless Tobacco: Never Alcohol Use Standard Drinks/Week Comments No 0 (1 standard drink = 0.6 oz pur e alcohol) [facility] Utilities Answer Date Recorded In the [...] any time in the past 12 [facility], were you homeless or living in a senior living (including now)? No 12/04/2023 DH IPV Inpatient Questions Answer Date Recorded Does Anyone Try to Keep You From Having Contact with Others or Doing Things Outside Your Home? 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 Daughter checkedpulse at home and it was in the 30s, which prompted presentation to [facility]. BP 130/80s, remains in the 30s without fluctuation. Troponin elevated at 82, in August was 71, priorto that was 61, described as stably/chronically mildly elevated. Follows with Dr. Hernandez at [facility] Cardiology. No known tick bites or other [...] up appointment with the cardiology department at [facility]. If you do not receive a call to schedule this, please call [facility] main line and [facility] in order to set this appointment. You will additionally have follow up with the EP (Electrophysiology) team for your pacemaker. Your Inpatient Doctor: MD Albert Kendrick MD Aditya Sharma, MD Your Primary Care Provider: Devorah Epstein MD [phone] For questions regarding this document or issues relating to this hospitalization on the Medical Service, please contact your inpatient physician through the [facility] Knife Edger . Issues afterhours and on weekends will [...] this product, please call the office at [phone]. Future Appointments and Orders Future Orders Complete By Expires Referral to Cardiology [REF12 Custom] As directed Process Instructions: If no progress note charted, please enter Clinical details in comments. Scheduling Instructions: Questions: My question or request is: 83 yo w/ hx of AF & CHB s/p micra placement Provider Contact Information: MD [address] / [facility] [id number] Discharge References/Attachments: Discharge References/Attachments None documented in [...] this product, please call the office at [phone]. * Patient Instructions* Darrell Gallardo MD - [...] up appointment with the cardiology department at [facility]. If you do not receive a call to schedule this, please call [facility] main line and ask for [facility] cardiology scheduling desk in order to set this appointment. You will additionally have follow up with the EP (Electrophysiology) team for your pacemaker. Your Inpatient Doctor: MD Albert Kendrick MD Aditya Sharma, MD Your Primary Care Provider: Devorah Epstein MD [phone] For questions regarding this document or issues relating to this hospitalization on the Medical Service, please contact your inpatient physician through the [facility] Knife Edger . Issues afterhours and on weekends will [...] Cardiac Device Implant Progress Note Serge Cabrera [id number] 12/06/2023 Assessment/Plan: Doing well post op day [...] (LBBB). Chest x-ray: Device Interrogation: Data Device: Rebelle Micra (VR2) #[id number] - Implanted 12/05/2023 Diagnostics Pacing Mode: VVIR Presenting EGMs: BRAND MGR Underlying Rhythm: Atrial fibrillation Ventricular Pacin.2% Battery and Leads Voltage: 3.06V Longevity: >10 years Impedance (ohms) Sensing (mV) Threshold 730 15 0.25V @ 0.24 ms Comments: - Device is functioning appropriately - Programming changes None - Follow up: Per device clinic David Calixto MD 12/06/2023 Pager: [phone] Associated attestation - Nikki Serrano MD - [...] transportation. Will be transported to unit by [facility]. Artem MICHELE * Nikki Serrano MD - [...] HTN, HLD, A- fib, presented initially to [facility] for one month of episodic dyspnea on exertion and epigastric discomfort and now being transferred to [facility] for symptomatic a- fib [...] 2017, HTN, HLD, A-fib, presented initially to [facility] for one month of episodic dyspnea on exertion and epigastric discomfort and now being transferred to [facility] for symptomatic a-fib with [...] course Cyndi Archer, Internal Medicine PGY-1 Pager [phone], M1-S2 Service Cardiology Attending Note I interviewed and examined the patient during comprehensive bedside rounds. I concur with the summary of interval events, active hospital-focused problem list and plan of care as described in the note below. I personally reviewed the medications, laboratory results, treatment decisions and updated the patient. Albert Oreilly MD, FACP, FACC Section of Cardiovascular Medicine [facility] Copping Machine Operatorsales record clerk [facility] This patient meets or has [...] 36* 35* CREATININE 1.59* 1.86* Recent Labs 12/03/2399 AST 14 ALT 15 ALKPHOS 70 BILITOT [...] 2017, HTN, HLD, A-fib, presented initially to [facility] for one month of episodic dyspnea on exertion and epigastric discomfort and now being transferred to [facility] for symptomatic a-fib with [...] course Cyndi Archer, Internal Medicine PGY-1 Pager [phone], M1-S2 Service Cardiology Attending Note I interviewed and examined the patient during comprehensive bedside rounds. I concur with the summary of interval events, active hospital-focused problem list and plan of care as described in the note below. I personally reviewed the medications, laboratory results, treatment decisions and updated the patient. Albert Oreilly MD, FACP, FACC Section of Cardiovascular Medicine [facility] [employer] Operatorsales record clerk [facility] This patient meets or has met medical criteria to require an inpatient level of care, i.e. a minimum of two midnights in the hospital with multiple complex problems. documented in this encounter H&P Notes * Albert Oreilly MD - 12/03/2023 12:57 AM EDT Cardiovascular Medicine Admission History and Physical Patient Name: Serge Thomas Sabrinamariferjames Service: S2 Responsible Attending: Albert Oreilly MD PCP: Devorah Epstein MD PCP phone #: [phone] ID/Chief Complaint: 83 yo M with PMH CAD s/p CABG (FRIAS-LAD, SVG-OM) in August 2017, HTN, HLD, A-fib, presented initially to [facility] for one month of episodic dyspnea on exertion and epigastric discomfort and now being transferred to [facility] for symptomatic a-fib with slow ventricular response and likely permanent pacemaker. History of Present Illness: Patient reports a month of episodic dyspnea on exertion and epigastric discomfort. Daughter checkedpulse at home and it was in the 30s, which prompted presentation to [facility]. BP 130/80s, remains in the 30s without fluctuation. Troponin elevated at 82, in August was 71, priorto that was 61, described as stably/chronically mildly elevated. Follows with Dr. Hernandez at [facility] Cardiology. No known tick bites or other [...] Atrial fib/flutter, transient Pericardial effusion Atherosclerosis of [place] coronary artery of [place] heart with angina pectoris Meds: No current [...] in the last 7068 hours. Invalid input(s): [id number] Heme: No results for input(s): LDH, HAPTOGLOBIN, [...] 2017, HTN, HLD, A-fib, presented initially to [facility] for one month of episodic dyspnea on exertion and epigastric discomfort and now being transferred to [facility] for symptomatic a-fib with slow ventricular response and likely permanent pacemaker. Plan to hold all AV guido blocking agents, will order tick panel and plan for TTE on arrival. Some concern for infiltrative cardiomyopathy based on prior view of biatrial enlargement. Will also obtain SPEP/UPEP/FLE on arrival. Admit to Cardiology, S2 Team Pager #[phone] #Atrial fibrillation with slow ventricular response -Consult [...] MD, FACP, FACC Section of Cardiovascular Medicine [facility] Co[employer] Machine Operatorsales record clerk [facility] This patient meets or has [...] DME used at home: respiratory supplies (CPAP ([employer])) DME Needed at Discharge: none Patient is insured through: Primary Insurance: MEDICARE Payor: MEDICARE / Plan: MEDICARE PART A & B / Product Type: *No Product type* / Secondary Insurance: [employer] [place] Prescription Coverage: Yes This plan was formulated [...] 2023. Patient seen in outpatient clinic at [facility] and receives 2 layer wraps changes [...] by changing from an oval to a eyak when it is stretched. 7. Start by [...] chat or the wound care team at [phone] or pager [phone] with skin and wound care concerns or [...] Operative Note Patient Name: Serge Cabrera : [id number] MR#: [id number] Case Date: 12/05/2023 Surgeon: Surgeons and Role: [...] bedside nurse, medical record, and Patient, Child BREAKER ENGINEER Introduced self/reviewed role; services accepted. Admitted From: Transfer from another hospital Location: [facility] Reason for Hospitalization: low heart rate, and possible pacemaker Covid Vaccination Status: Unvaccinated Last COVID test: Past medical History: No past medical history on file. Hospitalizations Within the Past 30 Days: no previous admission in last 30 days Current Decision-Making Capacity: Self If AD's have not been completed the following surrogate would be surrogate decision maker per [place] surrogate decision making law. (Only good for 180 days) Any patient receiving care in [place] must abide by [place] law. The hierarchy for surrogate decision making [...] (i) The agent with financial power of commercial real estate attorney or a conservator appointed in accordance [...] were you homeless or living in a senior living (including now)?: No In the past 12 months has the [employer], oil, or water [employer] threatened to shut off services in your [...] (CPAP ([employer])) Home Address confirmed as: [address] [place] [address] [address] [facility] [address] Social & Family Supports: All names listed below confirmed with patient as current and correct Extended Emergency Contact Information Primary Emergency Contact: [place] [address] [place] Mobile Relation: Child Current Care Provided by: self Provides Primary Care For: no one Caregiver if needed: none Quality of Family relationships: helpful, involved, supportive Community Resources being provided currently: other (see comments) (Pt receives wound care from [facility] on a weekly basis. Also typically receives PT from [facility], but due to leg wound, PT has [...] *No Product type* / Secondary Insurance: [place] ONLY if patient has Medicare A&B - Does this patient have secondary insurance?: Yes ; Prescription Coverage: Yes Preferred Pharmacy: [id number] [place], [place] - [address] [place] [address] AT SEC OF [facility] & [address] [address] Status: Patient is a : No Primary Care Provider confirmed: Devorah Epstein MD [phone] Patient/Caregiver Goals of Treatment: Potential Needs for Transition of Care: unable to assess Agency Referrals: TBD Transportation: no concerns Transportation Anticipated: family or friend will provide (Sanna (daughter) will provide a ride) Concerns to be Addressed: unable to assess Assessment: Patient is admitted to Cardiology service for Afib/flutter, transient. Uses a CPAP (formerly known as [employer]). Pt notes receiving wound care at [facility] on a weekly basis. Had been receiving PT at [facility] up until late last year, but had [...] of care planning. [facility] Ext. [phone] * Consult Note - Giulia Ibarra RN [...] CoFlex TLS Zinc Lite. He goes to [facility] for wound care and his does the dressing at home. Dressings are done every Monday and Monday. ? Current Wound Care Recommendations reviewed: Wound Care will follow up on Monday. Follow hospital standard for pressure injury prevention and skin care. Refer to adult/pediatric pressure ulcer prevention job aid in the clinical policy library. ?? ? Please contact Siena Ibarra RN on pager [phone] or the wound care team at [phone] with skin and wound care concerns or [...] Consultation: 12/03/2023 Admit Date: 12/02/2023 Patient Location: [facility] Attending Low Vision Therapist: Maggie Reason for Consult: We are seeing [...] chamber PPM (with or without LBBAP) versus ADMITTING REPRESENTATIVE pending echo. Recommendations: -Recommend 48 hours of [...] with junctional escape. 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 He currently lives in [place], [place]. He is originally from the [facility] [place]. 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 Fabio Pringle MD 12/03/2023 Pager #[phone] Staff addendum: I have seen and evaluated [...] AM EST Hospital Encounter Non-[place] [address] Arrived Scheduled Orders Name Type [...] AND LATERAL Routine 12/06/19 6:59 AM EDT HEMOGRAM Routine 12/06/2023 1:53 AM EDT PHOSPHORUS Routine 12/06/2023 1:53 AM EDT MAGNESIUM Routine 12/06/2023 1:53 AM EDT BASIC METABOLIC PANEL Routine 12/06/2023 1:53 AM EDT ELECTROPHYSIOLOGY PROCEDURE Routine 12/05/2023 3:14 PM EDT HEMOGRAM Routine 12/05/2023 3:32 AM EDT PHOSPHORUS Routine 12/05/2023 3:32 AM EDT MAGNESIUM Routine 12/05/2023 3:32 AM EDT BASIC METABOLIC PANEL Routine 12/05/2023 3:32 AM EDT PHOSPHORUS Routine 12/04/2023 9:42 AM EDT MAGNESIUM Routine 12/04/2023 9:42 AM EDT BASIC METABOLIC PANEL Routine 12/04/2023 9:42 AM EDT ECHO COMPLETE W CONTRAST Routine 024 9:31 AM EDT Atrial fib/flutter, transient HC RANDOM URINE PEP Routine 12/03/2023 1 :30 AM EDT IMMUNOGLOBULIN FREE LIGHT CHAINS, SERUM Routine 12/03/2023 1:00 AM EDT ACUTE TICK BORNE INFECTION PANEL Routine 12/03/2023 1:00 AM EDT LYME IGG & IGM ANTIBODY Routine 12/03/19 1:00 AM EDT IMMUNOGLOBULINS, QUANTITATIVE Routine 12/03/2023 1:00 AM EDT BMP W/FASTING GLUCOSE Routine 12/03/2023 1:00 AM EDT IMMUNOFIXATION ELECTROPHORESIS, SERUM Routine 12/03/2023 1:00 AM EDT HEMOGRAM Routine 12/03/2023 1:00 AM EDT DIFFERENTIAL, AUTOMATED Routine 12/03/19 1:00 AM EDT HC PARTIAL THROMBOPLASTIN TIME Routine 12/03/2023 1:00 AM EDT PROTHROMBIN TIME Routine 12/03/2023 1:00 AM EDT CBC (WITH DIFF) Routine 12/03/2023 1:00 AM EDT TRIGLYCERIDE Routine 12/03/2023 1:00 AM EDT TSH Routine 12/03/2023 1:00 AM EDT HC SERUM PROT. ELECTROPHORESIS Routine 12/03/2023 1:00 AM EDT PHOSPHORUS Routine 12/03/2023 1:00 AM EDT PRO-BRAIN NATRIURETIC PEPTIDE Routine 12/03/2023 1:00 AM EDT MAGNESIUM Routine 12/03/2023 1:00 AM EDT LDL CHOLESTEROL, DIRECT Routine 12/03/19 1:00 AM EDT HDL/CHOL PROFILE Routine 12/03/2023 1:00 AM EDT HEMOGLOBIN A1C Routine 12/03/2023 1:00 AM EDT HEPATIC FUNCTION PANEL Routine 1:00 AM EDT documented in this encounter Results * XR Chest PA & Lateral (Generic) (12/06/2023 6:59 AM EDT) WORKSTATION ID [id number] RAD Anatomical Region Laterality Modality Chest N/A [...] who have questions please contact the health career coordinator that requested your imaging first. ? Electronically signed by: Henrique Cheek MD, [facility] ??([phone]), at 12/06/2023 9:14 AM Narrative 12/06/2023 9:14 [...] patients who have questions please contactthe health career coordinator that requested your imaging first. Albert Oreilly MD IMG DX ORDERABLES * (ABNORMAL) Hemogram (12/06/2023 1:53 AM EDT) White Blood Cell 7.6 4.0 - 9.5 x10(3)/mc L [facility] Red Blood Cell 4.84 4.58 - 5.54 x10(6)/mc L [facility] Hemoglobin 14.0 13.7 - 16.5 g/dL [facility] Hematocrit 44.2 40.5 - 48.5 % [facility] Mean Cell Volume 91.3 82.9 - 93.[address] [facility] Mean Cell Hemoglobin 28.9 27.5 - 32.[address] [facility] Mean Cell Hemoglobin Concentration 31.7(L) 32.0 - 35.7 g/dL [facility] Platelet 140(L) 145 - 357 x10(3)/mc L [facility] RDW Standard Deviation 51.2(H) 36.0 - 45.[address] [facility] RDW coefficient of variation 15.4(H) 11.4 - 13.8 % [facility] Mean Platelet Volume 10.3 7.6 - 12.[address] [facility] NRBC% auto 0.0 % [facility] NRBC Absolute 0.000 0.000 - 0.000 x10(3)/mc L [facility] Blood 12/06/2023 1:53 AM EDT 12/06/2023 2:23 AM EDT Narrative Resulting Agency Comment Spec In Lab Albert Oreilly MD HEMATOLOGY ORDERAB LES Performing Organization Address [facility] Co de Phone Number [facility] [place] [address] * Phosphorus (12/06/2023 1:53 AM EDT) Phosphorus 2.8 2.5 - 4.5 mg/dL [facility] Blood 12/06/2023 1:53 AM EDT 12/06/2023 2:23 AM EDT Narrative Resulting Agency Comment Spec In Lab Albert Oreilly MD CHEMISTRY ORDERABL ES Performing Organization Address [facility] Phone Number [facility] [place] [address] * Magnesium (12/06/2023 1:53 AM EDT) Magnesium 0.86 0.69 - 1.07 mmol/L [facility] Blood 12/06/2023 1:53 AM EDT 12/06/2023 2:23 AM EDT Narrative Resulting Agency Comment Spec In Lab Albert Oreilly MD CHEMISTRY ORDERABL ES Performing Organization Address [facility] de Phone Number [facility] [place] [address] * (ABNORMAL) Basic Metabolic Panel (non-fasting) (12/06/2023 1:53 AM EDT) Glucose 254(H) 65 - 199 mg/dL [facility] Comment:Diabetes: >=200 mg/d L plus symptoms Blood Urea Nitrogen 30(H) 10 - 20 mg/dL [facility] Creatinine 1.47 0.80 - 1.50 mg/dL [facility] Sodium 139 135 - 145 mmol/L ST. [...] questions. Chloride 104 98 - 107 mmol/L [facility] Carbon Dioxide 19(L) 22 - 31 mmol/L [facility] Anion Gap 16(H) 5 - 15 mmol/L [facility] Calcium 9.8 8.5 - 10.5 mg/dL [facility] Est Glomerular Filtration Rate 47(L) >=60 mL/min/1. 73 m?? [facility] Comment: This patient's estimated GFR [...] Lab Albert Oreilly MD CHEMISTRY ORDERABL ES [facility] [place] [address] * ELECTROPHYSIOLOGY PROCEDURE (12/05/2023 3:14 PM EDT) Anatomical Region Laterality Modality Other Narrative 12/06/2023 10:27 PM EDT [facility] Cardiac Electrophysiology Procedure Report Procedure: Implant leadless pacemaker Procedure Date: 12/05/2023 Knife Edger: Heriberto Geronimo MD Cook 3 Pastry: Fabio Pringle MD Primary Care physician: Devorah Epstein MD Referring physician: Mei Sanchez MD Anesthesia: general anesthesia provided by anesthesia service Background: NrDarnell Cabrera ( 40) is an 83 y.o. 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 ??The Micra was then deployed. ?? [...] higher than the previous placement. RENEE and NICARAGUAN contrast injection views showed adequate positioning. After tug test electrical parameters remained excellent. The retention suture was cut and removed. ?? A injhtd-ga-zawvt stitch was placed around the sheath puncture site with syvek dressing underneath and the sheath removed with good hemostasis after a 20 minute manual hold. ?? Implant: Medtronic Micra VR Model [id number] Serial [id number] Programming: VVIR 60-120 Sensin.3 mV Impedance 830 [...] access Procedures performed: leadless pacemaker implantation (cpt 26963) Heriberto Geronimo MD S Cardiac Electrophysiology 12/06/2023 10:26 PM . Procedure Note Heriberto Geronimo MD - 12/06/2023 [facility] Cardiac Electrophysiology Procedure Report Procedure: Implant leadless pacemaker Procedure Date: 12/05/2023 Knife Edger: Heriberto Geronimo MD Cook 3 Pastry: Fabio Pringle MD Primary Care physician: Devorah Epstein MD Referring physician: Mei Sanchez MD Anesthesia: general anesthesia provided by anesthesia service Background: NrDarnell Cabrera ( 40) is an 83 y.o. 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 Operative Report: After obtaining informed consent, the patient wasbrought to the procedure room in the fasting and nonsedated state. Rightgroin prepped with chlorhexidine scrub.The anesthesia service providedsedation. Local anesthesia injected in the right groin. The location ofthe femoral head was confirmed by fluoroscopy. Femoral vein accessed withultrasound guidance and single puncture. Wire advanced and 8 Fr sheathplaced into the vessel under fluoroscopic guidance. Amplatz Super Stiffwire passed into the SVC. Serial dilation performed with 16F, 20F, 24Fdilators. Then, the 27Fr Micra sheath was advanced under fluoro guidanceto the RA. 3000 units of heparin IV was given. The Micra device and positioning sheath was advanced across the tricuspidvalve, aimed toward the septum. This was confirmed with contrastinjection in both the RENEE and NICARAGUAN views. The Micra was then deployed.Initial electrical parameters were borderline acceptable. Tug testconfirmed engagement of at least 2 tines. Given injury seen on device EGM,a decision was made to observe with intermittent checking of deviceparameters. Despite 10 minutes of waiting, parameters improved slightlybut remained overall unacceptable. Therefore the Micra was pulled backinto the delivery sheath. It was again positioned against the septum, thistime in a spot higher than the previous placement. RENEE and NICARAGUAN contrastinjection views showed adequate positioning. After tug test electricalparameters remained excellent. The retention suture was cut and removed.A ligwge-wu-cahov stitch was placed around the sheath puncture site withsyvek dressing underneath and the sheath removed with good hemostasisafter a 20 minute manual hold. Implant: Medtronic Micra VR Model [id number] Serial [id number] Programming: VVIR 60-120 Sensin.3 mV Impedance 830 ohm Threshold: 0.38V @ 0.24 ms Estimated Blood Loss: 20 cc Complications: None immediate Total Fluoroscopy Time: 8.3 minutes Total Fluoroscopy Dose: 20.3 Gy-cm^2 Conclusion / Plan: -Successful placement of Micra VR leadless pacemaker for symptomaticbradycardia due to AV block in the setting of permanent atrialfibrillation -Remove figure of 8 suture tomorrow AM -2-view CXR tomorrow AM -NPO @ MN in case retrieval is required -Device interrogation tomorrow AM -Standard 1-week activity restriction post femoral access Procedures performed: leadless pacemaker implantation (cpt 76483) Heriberto Geronimo MD S Cardiac Electrophysiology 12/06/2023 10:26 PM . Heriberto Geronimo MD EP PROCEDURE ORDERAB LES * (ABNORMAL) Hemogram (12/05/2023 3:32 AM EDT) White Blood Cell 4.2 4.0 - 9.5 x10(3)/[facility] LABORATORY Red Blood Cell 4.54(L) 4.58 - 5.54 x10(6)/[facility] LABORATORY Hemoglobin 13.2(L) 13.7 - 16.5 g/dL [facility] Hematocrit 41.7 40.5 - 48.5 % [facility] Mean Cell Volume 91.9 82.9 - 93.[address] [facility] Mean Cell Hemoglobin 29.1 27.5 - 32.[address] [facility] Mean Cell Hemoglobin Concentration 31.7(L) 32.0 - 35.7 g/dL [facility] Platelet 106(L) 145 - 357 x10(3)/[facility] LABORATORY RDW Standard Deviation 51.9(H) 36.0 - 45.0 [facility] LABORATORY RDW coefficient of variation 15.5(H) 11.4 - 13.8 % [facility] Mean Platelet Volume 10.5 7.6 - 12.9 [facility] LABORATORY NRBC% auto 0.0 % [facility] NRBC Absolute 0.000 0.000 - 0.000 x10(3)/[facility] LABORATORY Blood 12/05/2023 3:32 AM EDT 12/05/2023 3:53 AM EDT Narrative Resulting Agency Comment Spec In Lab Albert Oreilly MD HEMATOLOGY ORDERAB LES [facility] [place] [address] * Phosphorus (12/05/2023 3:32 AM EDT) Phosphorus 3.9 2.5 - 4.5 mg/dL [facility] Blood 12/05/2023 3:32 AM EDT 12/05/2023 3:53 AM EDT Narrative Resulting Agency Comment Spec In Lab Albert Oreilly MD CHEMISTRY ORDERABL ES Performing Organization Address [facility] Co de Phone Number [facility] [place] [address] * Magnesium (12/05/2023 3:32 AM EDT) Magnesium 0.90 0.69 - 1.07 mmol/L [facility] Blood 12/05/2023 3:32 AM EDT 12/05/2023 3:53 AM EDT Narrative Resulting Agency Comment Spec In Lab Albert Oreilly MD CHEMISTRY ORDERABL ES Performing Organization Address [facility] Co de Phone Number [facility] [place] [address] * (ABNORMAL) Basic Metabolic Panel (non-fasting) (12/05/2023 3:32 AM EDT) Glucose 140 65 - 199 mg/dL [facility] Comment:Diabetes: >=200 mg/d L plus symptoms Blood Urea Nitrogen 33(H) 10 - 20 mg/dL [facility] Creatinine 1.54(H) 0.80 - 1.50 mg/dL [facility] Sodium 141 135 - 145 mmol/L [facility] Potassium 4.1 3.5 - 5.0 mmol/L [facility] Comment: Please note: ??Patients with WBC >100,000 may have falsely elevated Potassium levels. ??For accurate Potassium quantification in these patients send serum separator tube (gold top) for subsequent determinations. ??Contact the Clinical Chemistry Laboratory if there are any questions. Chloride 108(H) 98 - 107 mmol/L [facility] Carbon Dioxide 22 22 - 31 mmol/L [facility] Anion Gap 11 5 - 15 mmol/L [facility] Calcium 9.7 8.5 - 10.5 mg/dL [facility] Est Glomerular Filtration Rate 44(L) >=60 mL/min/1. 73 m?? [facility] Comment: This patient's estimated GFR [...] MD CHEMISTRY ORDERABL ES Performing Organization Address [facility] Co de Phone Number [facility] [place] [address] * Phosphorus (12/04/2023 9:42 AM EDT) Phosphorus 3.5 2.5 - 4.5 mg/dL [facility] Blood 12/04/2023 9:42 AM EDT 12/04/2023 10:20 AM EDT Narrative Resulting Agency Comment Spec In Lab Albert Oreilly MD CHEMISTRY ORDERABL ES Performing Organization Address City/[facility]/ZIP Co de Phone Number [facility] [place] [address] * Magnesium (12/04/2023 9:42 AM EDT) Magnesium 0.96 0.69 - 1.07 mmol/L [facility] Blood 12/04/2023 9:42 AM EDT 12/04/2023 10:20 AM EDT Narrative Resulting Agency Comment Spec In Lab Albert Oreilly MD CHEMISTRY ORDERABL ES [facility] [place] [address] * (ABNORMAL) Basic Metabolic Panel (non-fasting) (12/04/2023 9:42 AM EDT) Glucose 131 65 - 199 mg/dL [facility] Comment:Diabetes: >=200 mg/d L plus symptoms Blood Urea Nitrogen 36(H) 10 - 20 mg/dL [facility] Creatinine 1.59(H) 0.80 - 1.50 mg/dL [facility] Sodium 140 135 - 145 mmol/L [facility] Potassium 4.3 3.5 - 5.0 mmol/L [facility] Comment: Please note: ??Patients with WBC >100,000 may have falsely elevated Potassium levels. ??For accurate Potassium quantification in these patients send serum separator tube (gold top) for subsequent determinations. ??Contact the Clinical Chemistry Laboratory if there are any questions. Chloride 106 98 - 107 mmol/L [facility] Carbon Dioxide 19(L) 22 - 31 mmol/L [facility] Anion Gap 15 5 - 15 mmol/L [facility] Calcium 10.4 8.5 - 10.5 mg/dL [facility] Est Glomerular Filtration Rate 43(L) >=60 mL/min/1. 73 m?? [facility] Comment: This patient's estimated GFR [...] Lab Albert Oreilly MD CHEMISTRY ORDERABL ES [facility] [place] [address] * ECHO COMPLETE W CONTRAST (12/04/2023 9:31 AM EDT) Anatomical Region Laterality Modality Cardiac Other 12/04/2023 8:27 AM EDT Narrative 12/04/2023 10:10 AM EDT [address] [place] [address] ? Echocardiogram Report Name: SERGE CABRERA ? Study Date: 12/04/2023 08:27 AMBP: 180/80 mmHg ? Patient Location: [place] [address] A : 1940 ? Height: 183 cm ? Account: [id number] Age: 83 yrs ? Weight: 127 kg Gender: Male ?BSA: 2.5 m2 Ordering Physician: ALBERT OREILLY Referring Physician: MEI SANCHEZ Performed By: Kaden Anthony RDCS Reason For Study: Atrial fib/flutter, transient Exam Location: [facility]. Interpretation Summary -Wall thickness is moderately increased [...] visual assessment, DI, and estimated MICHAEL. Procedure Complete-[id number]. Image enhancement Optison was used for left [...] Note Diego Hoyos MD - 12/04/2023 [address] [place] [id number] Echocardiogram Report Name: SERGE CABRERA Study Date: 408:27 AMBP: 180/80 mmHg Patient Location: [id number] A : 1940 Height: 183 cm Account: [id number] Age: 83 yrs Weight: 127 kg Gender: Male BSA: 2.5 m2 Ordering Physician: ALBERT OREILLY Referring Physician: MEI SANCHEZ Performed By: Kaden Anthony RDCS Reason For Study: Atrial fib/flutter, transient Exam Location: [facility]. Interpretation Summary -Wall thickness is moderately increased [...] visual assessment, DI, and estimated MICHAEL. Procedure Complete-[id number]. Image enhancement Optison was used for left [...] Electrophoresis, urine, random (12/03/2023 1:30 AM EDT) Pathologist [facility] Protein, Urine 53(H) 0 - 12 mg/dL [facility] U Albumin 68 % total [facility] Globulin, Urine 32 % total [facility] M1 Band, Urine None Detected [facility] UPEP Comments See Note [facility] Comment: There is no evidence of clonal free light chains in this patient's urine sample. Urine 12/03/2023 1:30 AM EDT 12/03/2023 2:48 AM EDT Narrative Resulting Agency Comment Spec In Lab Albert Oreilly MD URINE ORDERABLES Performing Organization Address [facility] Co de Phone Number [facility] [place] [address] * (ABNORMAL) Immunoglobulins, Quantitative (12/03/2023 1:00 AM EDT) [facility] Immunoglobulin G 685(L) 700 - 1,600 mg/dL [facility] Comment: Pediatric Reference Intervals obtained from the Caliper Reference Interval project. http://www.sickDomainindex.comds.ca/caliperproject/index.html IgA 142 70 - 400 mg/dL [facility] IgM 14(L) 40 - 230 mg/dL [facility] Blood Venous Draw / Unknown 12/03/2023 1:00 AM EDT 12/03/2023 1:17 AM EDT Narrative Resulting Agency Comment Spec In Lab Elías Duff MD CHEMISTRY ORDERABLES Performing Organization Address City/[facility]/ZIP Co de Phone Number [facility] [place] [address] * Immunofixation Electrophoresis (12/03/2023 1:00 AM EDT) [facility] Immunofixation Interpretation See Note [facility] Comment: RICHARD shows no evidence of a monoclonal immunoglobulin. Dr. Miguel A Park 12/06/2023 See scanned report. Blood Venous Draw / Unknown 12/03/2023 1:00 AM EDT 12/03/2023 1:17 AM EDT Narrative Resulting Agency Comment Spec In Lab Elías Duff MD CHEMISTRY ORDERABLES [facility] [place] [address] * (ABNORMAL) BMP w/fasting Glucose (12/03/2023 1:00 AM EDT) Glucose Fasting 134(H) 65 - 99 mg/[facility] [...] of Diabetes Mellitus, Position Statement from the [place] [employer]. ??Diabetes Care, Volume 33, Supplement 1, Jun 2009 Blood Urea Nitrogen 35(H) 10 - 20 mg/dL [facility] Creatinine 1.86(H) 0.80 - 1.50 mg/dL [facility] Sodium 141 135 - 145 mmol/L [facility] Potassium 4.4 3.5 - 5.0 mmol/L [facility] Comment: Please note: ??Patients with WBC >100,000 may have falsely elevated Potassium levels. ??For accurate Potassium quantification in these patients send serum separator tube (gold top) for subsequent determinations. ??Contact the Clinical Chemistry Laboratory if there are any questions. Chloride 109(H) 98 - 107 mmol/L [facility] Carbon Dioxide 20(L) 22 - 31 mmol/L [facility] Anion Gap 12 5 - 15 mmol/L [facility] Calcium 9.8 8.5 - 10.5 mg/dL [facility] Est Glomerular Filtration Rate 35(L) >=60 mL/min/1. 73 m?? [facility] Comment: This patient's estimated GFR [...] Duff MD CHEMISTRY ORDERABLES Performing Organization Address City/State/[facility] Co de Phone Number [facility] [place] [address] * (ABNORMAL) Differential, Automated (12/03/2023 1:00 AM EDT) Neutrophil % 72.9 % [facility] Neutrophil Absolute 3.74 1.70 - 6.10 x10(3)/mc L [facility] Lymph % 14.5 % [facility] Lymphocytes Abs 0.7(L) 0.9 - 3.2 x10(3)/mc L [facility] Monocyte % 10.4 % [facility] Monocyte Abs 0.5 0.3 - 0.9 x10(3)/mc L [facility] Eos % 1.4 % [facility] Eosinophils Abs 0.1 0.0 - 0.4 x10(3)/[facility] LABORATORY Basophil % 0.4 % [facility] Baso Absolute 0.0 0.0 - 0.1 x10(3)/[facility] LABORATORY Immature Gran % 0.40 % [facility] Comment: Immature granulocytes(IG's)percentage and absolute count will include metamyelocytes, myelocytes, and promyelocytes. Blood smears from CBCs yielding IG's will be scanned manually for concordance. If this scan disagrees with the automated IG or if promyelocytes are noted, a manual differential will be performed. Immature Gran Absolute 0.02 0.00 - 0.04 x10(3)/[facility] LABORATORY Blood 12/03/2023 1:00 AM EDT 12/03/2023 1:17 AM EDT Narrative Resulting Agency Comment Spec In Lab Elías Duff MD HEMATOLOGY ORDERABLE S Performing Organization Address City/State/[facility] Co de Phone Number [facility] [place] [address] * (ABNORMAL) Hemogram (12/03/2023 1:00 AM EDT) White Blood Cell 5.1 4.0 - 9.5 x10(3)/[facility] LABORATORY Red Blood Cell 4.49(L) 4.58 - 5.54 x10(6)/ L [facility] Hemoglobin 13.1(L) 13.7 - 16.5 g/dL [facility] Hematocrit 41.6 40.5 - 48.5 % [facility] Mean Cell Volume 92.7 82.9 - 93.[address] [facility] Mean Cell Hemoglobin 29.2 27.5 - 32.[address] [facility] Mean Cell Hemoglobin Concentration 31.5(L) 32.0 - 35.7 g/dL [facility] Platelet 123(L) 145 - 357 x10(3)/[facility] LABORATORY RDW Standard Deviation 52.5(H) 36.0 - 45.[address] [facility] RDW coefficient of variation 15.5(H) 11.4 - 13.8 % [facility] Mean Platelet Volume 10.1 7.6 - 12.[address] [facility] NRBC% auto 0.0 % [facility] NRBC Absolute 0.000 0.000 - 0.000 x10(3)/mc L [facility] Blood 12/03/2023 1:00 AM EDT 12/03/2023 1:17 AM EDT Narrative Resulting Agency Comment Spec In Lab Elías Duff MD HEMATOLOGY ORDERABLE S Performing Organization Address [facility] Co de Phone Number [facility] [place] [address] * Free Light Chains, Serum (12/03/2023 1:00 AM EDT) Pathologist [facility] [place] Free Light Chain 2.66 0.72 - 2.75 mg/dL [facility] Lambda Free Light Chain 2.00 0.57 - 2.15 mg/dL [facility] [place]/Lambda FLC Ratio 1.3300 0.4000 - 2.5800 [facility] Blood 12/03/2023 1:00 AM EDT 12/03/2023 1:17 AM EDT Narrative Resulting Agency Comment Spec In Lab Albert Oreilly MD CHEMISTRY ORDERABL ES Performing Organization Address [facility] Co de Phone Number [facility] [place] [address] * (ABNORMAL) Protein Electrophoresis, serum (12/03/2023 1:00 AM EDT) Pathologist [facility] Total Prot Electrophoresis 6.0(L) 6.1 - 8.0 g/dL [facility] Albumin Electrophoresis 4.13 3.20 - 5.20 g/dL [facility] Alpha 1 Globulin 0.19 0.10 - 0.30 g/dL [facility] Alpha 2 Globulin 0.60 0.40 - 0.90 g/dL [facility] Beta Globulin 0.62 0.50 - 1.00 g/dL [facility] Gamma Globulin 0.46(L) 0.50 - 1.30 g/dL [facility] M1 Band Comments Below None Detected [facility] SPEP Comments See Note 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 Immunofixation (RICHARD) and quantitative immunoglobulin (NIK) testing will be performed on this sample. Blood 12/03/2023 1:00 AM EDT 12/03/2023 1:17 AM EDT Narrative Resulting Agency Comment Spec In Lab Albert Oreilly MD CHEMISTRY ORDERABL ES Performing Organization Address [facility] Co de Phone Number [facility] [place] [address] * Lyme IgG & IgM Antibody (12/03/2023 1:00 AM EDT) [facility] Lyme Antibody Negative Negative [facility] Lyme Ab Comment Negative result does not exclude possibility of infection. [facility] Comment: Please note that as of 11/01/2022 that this testing is performed by the Special [facility] Laboratory at [facility]. This change in testing location is associated with a change in testing methodology. Blood 12/03/2023 1:00 AM EDT 12/04/2023 7:29 AM EDT Narrative Resulting Agency Comment Spec In Lab Albert Oreilly MD IMMUNOLOGY ORDERAB LES Performing Organization Address [facility] Co de Phone Number [facility] [place] [address] * Acute Tick Borne Infection Panel (12/03/2023 1:00 AM EDT) [facility] Anaplasma phagocytophilum PCR Not Detected Not Detected [facility] Comment: INTERPRETATION: A positive result [...] and its performance characteristics determined by the [employer] [facility] at [facility] [place]. It has not been cleared or approved by the FDA. The laboratory is regulated under CLIA as qualified to perform high-complexity testing. This test is used for clinical purposes. It should not be regarded as investigational or for research. Ehrlichia chaffeensis PCR Not Detected Not Detected [facility] Comment: INTERPRETATION: A positive result [...] and its performance characteristics determined by the [employer] [facility] at [facility] [place]. It has not been cleared or approved by the FDA. The laboratory is regulated under CLIA as qualified to perform high-complexity testing. This test is used for clinical purposes. It should not be regarded as investigational or for research. Babesia microti PCR Not Detected Not Detected [facility] Comment: INTERPRETATION: A positive result [...] and its performance characteristics determined by the [employer] [facility] at [facility] [place]. It has not been cleared or approved by the FDA. The laboratory is regulated under CLIA as qualified to perform high-complexity testing. This test is used for clinical purposes. It should not be regarded as investigational or for research. Borrelia miyamotoi PCR Not Detected Not Detected [facility] Comment: INTERPRETATION: A positive result [...] [employer] [facility] at [facility] [place]. It has not been cleared or approved by the FDA. The laboratory is regulated under CLIA as qualified to perform high-complexity testing. This test is used for clinical purposes. It should not be regarded as investigational or for research. Blood 12/03/2023 1:00 AM EDT 12/03/2023 9:01 AM EDT Narrative Resulting Agency Comment Spec In Lab Albert Oreilly MD MOLECULAR ORDERABL ES Performing Organization Address [facility] de Phone Number [facility] [place] [address] * Triglyceride (12/03/2023 1:00 AM EDT) Triglyceride 154 mg/dL [facility] Comment: Normal: ?<150 mg/dL Borderline High: 150-199 mg/dL High: ?200-499 mg/dL Very High: ? >ne=003 mg/dL Blood 12/03/2023 1:00 AM EDT 12/03/2023 1:17 AM EDT Narrative Resulting Agency Comment Spec In Lab Albert Oreilly MD CHEMISTRY ORDERABL ES Performing Organization Address [facility] de Phone Number [facility] [place] [address] * HDL/Cholesterol Profile (12/03/2023 1:00 AM EDT) Cholesterol, Total 78 mg/dL [facility] Comment: Desirable: ? <200 mg/dL Borderline High: 200-239 mg/dL Higher: ?>gu=440 mg/dL HDL Cholesterol 34 mg/dL [facility] Comment: Females: High Risk: <50 mg/dL Males: High Risk: <40 mg/dL Lipid Interpretation See Note [facility] Comment: It is important to [...] ACC/AHA Guidelines (most recently Tiago et al. [facility] 03/29/22): For individuals with atherosclerotic cardiovascular disease (ASCVD)or LDL >xj=120 mg/dL, use a high-intensity statin (40-80 mg [...] Lab Albert Oreilly MD CHEMISTRY ORDERABL ES [facility] [place] [address] * LDL Cholesterol, Direct (12/03/2023 1:00 AM EDT) LDL Cholesterol, Direct 29 mg/dL [facility] Comment: Desirable: ? <100 mg/dL Above Desirable: 100-129 mg/dL Borderline High: 130-159 mg/dL High: ?160-189 mg/dL Very High: ? >xl=259 mg/dL If not reaching LDL goals on [...] MD CHEMISTRY ORDERABL ES Performing Organization Address [facility] Co de Phone Number [facility] [place] [address] * (ABNORMAL) Hemoglobin A1c (12/03/2023 1:00 AM EDT) Hemoglobin A1c 6.5(H) 4.3 - 5.6 % [facility] Comment: Reference Range: 4.3 - [...] Diabetes Care 2013; 36: Suppl. 1, S67-74 Estimated Average Glucose See note mg/dL [facility] Comment: Estimated Average Glucose not appropriate for patients over 70 years of age. Blood 12/03/2023 1:00 AM EDT 12/03/2023 1:17 AM EDT Narrative Resulting Agency Comment Spec In Lab Albert Oreilly MD CHEMISTRY ORDERABL ES Performing Organization Address [facility] de Phone Number [facility] [place] [address] * APTT (12/03/2023 1:00 AM EDT) Partial Thromboplastin Time 31 25 - [address] [facility] Comment: The PTT is NOT [...] Organization Address [facility] de Phone Number [facility] [place] [address] * (ABNORMAL) Prothrombin Time (12/03/2023 1:00 AM EDT) Prothrombin Time 14.7(H) 9.4 - 12.[address] [facility] International Normalization Ratio 1.3 [facility] Comment: An INR <2.0 indicates [...] MD HEMATOLOGY ORDERAB LES Performing Organization Address City/[facility]/ZIP Co de Phone Number [facility] [place] [address] * Hepatic Function Panel (12/03/2023 1:00 AM EDT) [facility] Protein, Total 6.1 6.1 - 8.0 g/dL [facility] Albumin 4.0 3.2 - 5.2 g/dL [facility] Aspartate Aminotransferase 14 0 - 39 unit/L [facility] Alanine Aminotransferase 15 0 - 55 unit/L [facility] Alkaline Phosphatase 70 40 - 130 unit/L [facility] Bilirubin, Total 0.8 0.2 - 1.3 mg/dL [facility] [facility] Bilirubin, Direct 0.3 0.0 - 0.3 mg/dL [facility] Blood 12/03/2023 1:00 AM EDT 12/03/2023 1:17 AM EDT Narrative Resulting Agency Comment Spec In Lab Albert Oreilly MD CHEMISTRY ORDERABL ES Performing Organization Address [facility] Co de Phone Number [facility] [place] [address] * (ABNORMAL) pro-Brain Natriuretic Peptide (12/03/2023 1:00 AM EDT) [facility] NT-proBNP 4,344(H) <=449 pg/mL [facility] Blood 12/03/2023 1:00 AM EDT 12/03/2023 1:17 AM EDT Narrative Resulting Agency Comment Spec In Lab Albert Oreilly MD CHEMISTRY ORDERABL ES Performing Organization Address City/[facility]/ZIP Co de Phone Number [facility] [place] [address] * TSH (12/03/2023 1:00 AM EDT) Thyroid Stimulating Hormone 1.29 0.27 - 4.20 mcIU/mL [facility] Comment: Reference Interval (mcIU/mL): Females: ??First Trimester: 0.23-3.88 ??Second Trimester: 0.22-3.90 ??Third Trimester: 0.44-4.66 Blood 12/03/2023 1:00 AM EDT 12/03/2023 1:17 AM EDT Narrative Resulting Agency Comment Spec In Lab Albert Oreilly MD CHEMISTRY ORDERABL ES Performing Organization Address [facility] Co de Phone Number [facility] [place] [address] * Phosphorus (12/03/2023 1:00 AM EDT) Phosphorus 3.1 2.5 - 4.5 mg/dL [facility] Blood 12/03/2023 1:00 AM EDT 12/03/2023 1:17 AM EDT Narrative Resulting Agency Comment Spec In Lab Albert Oreilly MD CHEMISTRY ORDERABL ES Performing Organization Address [facility] Co de Phone Number [facility] [place] [address] * Magnesium (12/03/2023 1:00 AM EDT) Magnesium 0.92 0.69 - 1.07 mmol/L [facility] Blood 12/03/2023 1:00 AM EDT 12/03/2023 1:17 AM EDT Narrative Resulting Agency Comment Spec In Lab Albert Oreilly MD CHEMISTRY ORDERABL ES Performing Organization Address [facility] Co de Phone Number [facility] [place] [address] documented in this encounter Visit Diagnoses Diagnosis [...] patient tolerate oral medications or suppositories? No 1826 (Given - Provider: Maddie Hernandez, LENY) aspirin EC tablet 81 mg 81 mg, Oral, DAILY, First dose on Mon12/03/23 at 0900, Until Discontinued, Routine 08 (Given - Provider: Niki Coronado, LENY) 0834 (Given - Provider: Keron Humphrey RN)151 (AUG Hold - Provider: Admin Adt - Reason: Transfer to a Procedural area)1957 (MAR Unhold - Provider: Admin Adt) 0812 (Given - Provider: Keron Humphrey LENY) BUpivacaine (pf) (Marcaine) (5 mg/mL) 0.5% injection [...] 0835 (Given - Provider: Keron Humphrey RN)1513 (AUG Hold - Provider: Admin Adt [...] - Reason: Transfer to a Procedural area)1957 (MAR Unhold - Provider: Admin Adt) 0812 (Given - Provider: Keron Humphrey, LENY) magnesium sulfate 2 g in sterile water [...] Minutes 0732 (New Bag - Provider: Keron Humphrey, RN)0932 (Stopped - Provider: Keron Humphrey, RN) pantoprazole EC (Protonix) tablet 40 mg 40 mg, Oral, DAILY, First dose on 12/03/23 at 0900, Until Discontinued 0805 (Given - Provider: Niki Coronado, RN) 0835 (Given - Provider: Keron Humphrey, RN)151 (AUG Hold - Provider: Admin Adt - Reason: Transfer to a Procedural area)1957 (MAR Unhold - Provider: Admin Adt) 0812 (Given - Provider: Keron Humphrey, LENY) polyethylene glycoL (Miralax) packet 17 g 17 g, Oral, DAILY, First dose on Mon12/04/23 at 1430, Until Discontinued, Routine 1349 (Given - Provider: Niki Coronado RN) 09 (Not Given - Provider: Keron Humphrey RN - Reason: Patient/family refused)151 (MAR Hold - Provider: Admin Adt - Reason: Transfer to a Procedural area)1957 (MAR Unhold - Provider: Admin Adt) 09 (Not Given - Provider: Keron Humphrey RN - Reason: Patient/family refused) rosuvastatin (Crestor) tablet 20 mg 20 mg, Oral, DAILY, First dose on 12/03/23 at 0900, Until Discontinued, Routine 0804 (Given - Provider: Niki Coronado, LENY) 0835 (Given - Provider: Keron Humphrey, LENY)151 (MAR Hold - Provider: Admin Adt - Reason: Transfer to a Procedural area)1957 (AUG Unhold - Provider: Admin Adt) 0811 (Given - Provider: Keron Humphrey, LENY) senna-docusate (Pericolace) 8.6-50 mg per tablet 2 tablet 2 tablet, Oral, DAILY, First dose on Mon12/04/23 at 1430, Until Discontinued, Routine 1349 (Given - Provider: Niki Coronado, LENY) 0836 (Not Given - Provider: Keron Humphrey RN - Reason: Patient/family refused)151 (MAR Hold - Provider: Admin Adt - Reason: Transfer to a Procedural area)1957 (MAR Unhold - Provider: Admin Adt) 0900 (Not Given - Provider: Keron Humphrey RN - Reason: Patient/family refused) sodium chloride 0.9 % (flush) (BD PosiFlush Normal Saline 0.9) flush 5 mL 5 mL, Intravenous, 2 TIMES DAILY, First dose on Mon12/03/23 at 0015, Until Discontinued, Routine 08 (Given - Provider: Niki Coronado RN)2046 (Given - Provider: Elma Adams, LENY) 0900 (Given - Provider: Kreon Humphrey, RN)151 (AUG Hold - Provider: Admin Adt - Reason: Transfer to a Procedural area)1957 (AUG Unhold - Provider: Admin Adt)2100 (Given - Provider: Elma Adams RN) 0900 (Given - Provider: Keron Humphrey, LENY) tamsulosin (Flomax) capsule 0.4 mg (CANCELED) 0.4 mg, Oral, DAILY, First dose on Mon12/03/23 at 0900, Until Discontinued, DO NOT CRUSH OR CHEW, Routine 804 (Given - Provider: Niki Coronado RN) 08 (Given - Provider: Keron Humphrey, LENY) tamsulosin (Flomax) capsule 0.8 mg 0.8 mg, Oral, DAILY, First dose (after last modification) on Mon12/06/23 at 0900, Until Discontinued, DO NOT CRUSH OR CHEW, Routine 1512 (AUG Hold - Provider: Admin Adt - Reason: Transfer to a Procedural area)1957 (AUG Unhold - Provider: Admin Adt) 0813 (Given [...] Oral, EVERY 4 HOURS PRN, Starting on 12/02/24 at 1256, Until Mon12/06/23 at 1640, Cough, Routine 1224 (Given - Provider: Niki Coronado RN) 1512 ([facility] Hold - Provider: Admin Adt - Reason: Transfer to a Procedural area)1957 ([facility] Unhold - Provider: Admin Adt) lidocaine (Xylocaine) 1% (10 mg/mL) injection 3 mg 3 mg (0.3 mL), Subcutaneous, ONCE PRN, 1 dose, Starting on 12/02/23 at 2323, Until Mon12/06/23 at 1640, for discomfort with PIV insertion, Routine 151 ([facility] Hold - Provider: Admin Adt - Reason: Transfer to a Procedural area)1957 ([facility] Unhold - Provider: Admin Adt) perflutren protein-A microsphers (Optison) (0.22 mg/mL) injection 3 mL (COMPLETED) 3 mL, Intravenous, ONCE PRN, 1 dose, Starting on 12/04/23 at 0932, Until 12/04/23 at 0932, prn, Routine 0932 (Given - Provider: Kaden Anthony) polyethylene glycoL (Miralax) packet 17 g 17 g, Oral, DAILY PRN, Starting on 12/04/23 at 1438, Until Mon12/06/23 at 1640, Constipation, Routine 151 ([facility] Hold - Provider: Admin Adt - Reason: Transfer to a Procedural area)1957 ([facility] Unhold - Provider: Admin Adt) sodium chloride 0.9 % (flush) (BD PosiFlush Normal Saline 0.9) flush 5-20 mL 5-20 mL, Intravenous, EVERY 1 MIN PRN, Starting on 12/02/23 at 2323, Until Mon12/06/23 at 1640, flush, Flush pertains to all indwelling lines. Flush per protocol found in the job aid using the link provided on this medication record., Routine 151 ([facility] Hold - Provider: Admin Adt - Reason: Transfer to a Procedural area)1957 ([facility] Unhold - Provider: Admin Adt) documented in this encounter Care Teams Application Coordinator Relationship Specialty Start Date End Date Devorah Epstein MD [facility] [address] [place] [address] PCP - General Family Medicine 09/01/17 documented as of this encounter
--- OUTSIDE RECORDS SUMMARY | 2024-04-29 19:13 | XMS_ITS | Encounter Summary ---
Author Organization [facility] [place] [address] Care Team Providers Care Hardwood Flooring Specialist Name Role Phone Devorah Epstein MD Primary Care Provider [phone] Reason for Referral * Diagnostic Test (Routine) - Closed Specialty Diagnoses / Procedures Referred By Binh taylor Referred To Contact Cardiology Diagnoses Pericardial effusion Procedures Echocardiogram Transthoracic(Leb) Flower Smith PATIENT REGISTRATION SPECIALIST [facility] [place] [address] [facility] [place] [address] Referral ID Status Reason Start Date Expiration Date V isits Requested Visits Authorized [id number] Closed Specialty Service Requested 12/01/2017 12/01/2018 1 1 Reason for Visit * Diagnostic Test (Routine) - Closed Specialty Diagnoses / Procedures Referred By Binh taylor Referred To Contact Cardiology Diagnoses Pericardial effusion Procedures Echocardiogram Transthoracic(Leb) Flower Smith PATIENT REGISTRATION SPECIALIST [facility] [place] [address] [facility] [place] [address] Referral ID Status Reason Start Date Expiration Date V isits Requested Visits Authorized [id number] Closed Specialty Service Requested 12/01/2017 12/01/2018 1 1 Encounter Details Date Type Department Care Team (Latest Contact Info) Description 01/02/2018 12:48 PM EDT - 01/02/2018 2:52 PM EDT Hospital Encounter Non-Invasive Cardiology [place] [address] [facility] [address] Pericardial effusion Discharge Disposition: Home Social History [...] AM EST Hospital Encounter Non-Invasive [place] [phone] Arrived documented as of this encounter Procedures [...] VALENTINE P ?(Age): 1940(77y) Med Rec#: ? [id number] ?Sex: ?M ? Site Loc: ? [facility] ?Ht / Wt: ??183(cm)/130.6(k Pt. Loc: ?Echo Lab ?BSA: ?2.49 Study Date: ?? 01/02/2018 ?Pt. Type: Outpatient Tape: ? Referring: MIHAI Reading: Sergei Chambers ([id number]) Front Counter Clerk: Gracia Banegas Interpreting Fellow: Carol Gallardo Diagnosis: [...] E-wave Vmax ?0.8 ?m/sec ? MV deceleration ctyf909.3 ?msec ? MV A-wave Vmax ?0.6 ?m/sec [...] ? Mid-Inferior ?Normal ? Mid-Inferoseptal ?Normal ? [place]-Septal ? Normal ? [place]-Anterior ? Normal ? [place]-Lateral ?Normal ? [place]-Inferior ? Normal ? [place]-Tip ?Normal ? This report has been electronically signed by: Sergei Chambers MD ? 01/02/2018 14:01:14 Images reviewed and interpretation verified [facility] Cardiac Ultrasound Laboratory Procedure Note Sergei Chambers MD - 01/02/2018 Procedure: Transthoracic Echocardiogram Patient: KENDRICK BALL(Age): 1940(77y) Med Rec#: [id number] Sex: M Site Loc: [facility] Ht / Wt: 183(cm)/130.6(k Pt. Loc: Echo Lab BSA: 2.49 Study Date: 01/02/2018 Pt. Type: Outpatient Tape: Referring: MIHAI Reading: Sergei Chambers ([id number]) Front Counter Clerk: Gracia Banegas Interpreting Fellow: Carol Gallardo Diagnosis: [...] MV E-wave Vmax 0.8 m/sec MV deceleration nkgf907.3 msec MV A-wave Vmax 0.6 m/sec MV [...] Normal Mid-Posterolateral Normal Mid-Inferior Normal Mid-Inferoseptal Normal [place]-Septal Normal [place]-Anterior Normal [place]-Lateral Normal [place]-Inferior Normal [place]-Tip Normal This report has been electronically signed by: Sergei Chambers MD 01/02/2018 14:01:14 Images reviewed and interpretation verified [facility]ound [facility] documented in this encounter Visit Diagnoses Diagnosis Pericardial effusion Unspecified disease of pericardium documented in this encounter Care Teams Hardwood Flooring Specialist Relationship Specialty Start Date End Date Devorah Epstein MD [address] [place] [address] PCP - General Family Medicine 09/01/17 documented as of this encounter
--- OUTSIDE RECORDS SUMMARY | 2024-04-29 19:13 | XMS_ITS | Encounter Summary ---
Author Organization [facility] [place] [address] Care Team Providers Care Utilization Management Nurse Name Role Phone Devorah Epstein MD Primary Care Provider [phone] Encounter Details Date Type Department Care Team (Late st Contact Info) Description 12/02/2023 Telephone Cardiology at [address] [address] Sarah Madrid MD [facility] [place] [address] Social History Tobacco Use Types Packs/Day Years Used Date Smoking Tobacco: Former Smokeless Tobacco: Never Alcohol Use Standard Drinks/Week Comments No 0 (1 standard drink = 0.6 oz pur e alcohol) [facility] Inpatient Questions Answer Date Recorded Does Anyone [...] Initial contact time: 5:44 PM Referring Provider: [facility], Cristobal Sanchez MD CAD s/p CABG (FRIAS-LAD, 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 Daughter checked pulse & it was in the 30s prompting presentation to [facility]. BP 130/80s, remains in the 30s without fluctuation. Troponin elevated at 82, in August was 71, priorto that was 61, described as stably/chronically mildly elevated. Follows with Dr. Hernandez at [facility] Cardiology. No known tick bites or [...] AM EST Hospital Encounter [place] [address] Arrived documented as of this encounter Visit Diagnoses Not on filedocumented in this encounter Care Teams Utilization Management Nurse Relationship Specialty Start Date End Date Devorah Epstein MD [address] [facility] [address] [place] [address] PCP - General Family Medicine 09/01/17 documented as of this encounter
--- OUTSIDE RECORDS SUMMARY | 2024-04-29 19:13 | XMS_ITS | Encounter Summary ---
[place] [address] Care Team Providers Care Facility Service Associate Name Role Phone Devorah Epstein MD Primary Care Provider [phone] Encounter Details Date Type Department Care Team (Late st Contact Info) Description 12/02/2023 External [place] [phone] Social History Tobacco Use Types Packs/Day Years Used Date Smoking Tobacco: Former Smokeless Tobacco: Never Alcohol Use Standard Drinks/Week Comments No 0 (1 standard drink = 0.6 oz pur e alcohol) [facility] Utilities Answer Date Recorded In the past [...] any time in the past 12 m [facility], were you homeless or living in a half-way (including now)? No 12/04/2023 DH IPV Inpatient [...] st Contact Info) Description 06/26/2024 10:00 AM [facility] Hospital Encounter Non-[place] [address] Arrived documented as of this encounter Procedures Procedure Name Priority Date/Time Associated Diagnosis Comments ECG SCAN Routine 12/02/2023 4:56 PM EDT documented in this encounter Results * Scan Doc: ECG (12/02/2023 4:56 PM EDT) Historical Provider MD RAMEY MGR SCAN EX T ORDR/RSLT documented in this encounter Visit Diagnoses Not on filedocumented in this encounter Care Teams Facility Service Associate Relationship Specialty Start Date End Date Devorah Epstein MD [facility] [address] [place] [address] PCP - General Family Medicine 09/01/17 documented as of this encounter
--- OUTSIDE RECORDS SUMMARY | 2024-04-29 19:13 | XMS_ITS | Encounter Summary ---
Author Organization [facility] Address [facility] [place] [address] Care Team Providers Care Hourly Shift Name Role Phone Devorah Epstein MD Primary Care Provider [phone] Encounter Details Date Type Department Care Team (Late st Contact Info) Description 12/05/2017 Tele[place] [address] Scott Watts PA [facility] [place] [address] Social History Tobacco Use Types Packs/Day Years [...] daily. He is due to see his bag making machine operator Dr. Marie this week so I deferred [...] st Contact Info) Description 06/26/2024 10:00 AM [facility] Hospital Encounter Non[place] [address] Arrived documented as of this encounter Visit Diagnoses Not on filedocumented in this encounter Care Teams Hourly Shift Relationship Specialty Start Date End Date Devorah Epstein MD [address] [place] [address] PCP - General Family Medicine 09/01/17 documented as of this encounter
--- OUTSIDE RECORDS SUMMARY | 2024-04-29 19:13 | XMS_ITS | Encounter Summary ---
[place] [address] Care Team Providers Care Orderly Name Role Phone Devorah Epstein MD Primary Care Provider [phone] Encounter Details Date Type Department Care Team (Late st Contact Info) Description 01/02/2018 2:10 PM EDT Office Visit [place] [address] Pablo Govea MD Pericardial effusion Social History Tobacco Use Types [...] PM EDT Cardiac Surgery Clinic Note: ID: [id number] Cardiac Surgery Attending: Dr. Govea Airline Mechanic: Dr. Marie PCP: Dr. Epstein S: -Overall is feeling better since hospitalization. -Dry cough initially resolved after pericardiocentesis, however this has returned over the past week or two. Also reports dyspnea on exertion. -Last saw heavy truck mechanic Dr. Marie 1 week ago, bispropolol was increased and losartan was added on. -Occasionally feels very lightheaded upon standing with HR in the 30s. -Is continuing cardiac rehab 3x weekly at [facility]. TTE: Small circumferential pericardial effusion, fibrinous. No [...] increase to BID. -Patient to follow-up with Airline Mechanic as discussed/arranged: 2 months from last visit. DW Attending Surgeon. Signed: Alana France PA-C [facility] Section of Cardiac Surgery 01/02/2018 documented in this encounter Plan of Treatment Upcoming Encounters Date Type Department Care Team (Late st Contact Info) Description 06/26/2024 10:00 AM EST Hospital Encounter Non-Invasive [place] [address] Arrived documented as of this encounter Results [...] residents interpretationand agree with the findings, Jesica Mnan at 01/02/2018 3:21 PM Pablo Govea MD IMG DX ORDERABLES documented in this encounter Visit Diagnoses Diagnosis Pericardial effusion Unspecified disease of pericardium Pericardial effusion Unspecified disease of pericardium documented in this encounter Care Teams Orderly Relationship Specialty Start Date End Date Devorah Epstein MD [address] [place] [address] [address] [place] [address] PCP - General Family Medicine 09/01/17 documented as of this encounter
--- OUTSIDE RECORDS SUMMARY | 2024-04-29 19:13 | XMS_ITS | Encounter Summary ---
Author Organization [facility] [place] [address] Care Team Providers Care Senior Test Engineer Name Role Phone Devorah Epstein MD Primary Care Provider [phone] Encounter Details Date Type Department Care Team (Late st Contact Info) Description 09/20/2023 Telephone Cardiology at [address] [address] Elma Downs PA [facility] [place] [address] Social History Tobacco Use Types Packs/Day Years [...] Initial contact time: 3:23 PM Referring Provider: [facility] Patient Location: Coleen Medina APRN [...] HTN, HLD, and GERD who presented to [facility] ER with LOYOLA and chest [...] and therefore seems 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 Discussed historically he is not on OAC for ?friable lung tissue. Would review further with patient and primary team if OAC benefits > risks. [id number] score is 5 (age +2, HTN, CHF, CAD). I encouraged Coleen Median APRN to contact us if there is any change in symptoms, decision-making, or further need for guidance in management. The above recommendations were based on my discussion with Coleen Medina APRN; I have not personally interviewed or examined this patient. Elma Downs PA-C Cardiovascular Medicine Pager [phone] 09/20/2023 documented in this encounter Plan of Treatment Upcoming Encounters Date Type Department Care Team (Late st Contact Info) Description 06/26/2024 10:00 AM EST Hospital Encounter Non-Invasive [place] [address] Arrived documented as of this encounter Visit Diagnoses Not on filedocumented in this encounter Care Teams Senior Test Engineer Relationship Specialty Start Date End Date Devorah Epstein MD [facility] [address] [place] [address] PCP - General Family Medicine 09/01/17 documented as of this encounter
--- OUTSIDE RECORDS SUMMARY | 2024-04-29 19:13 | XMS_ITS | Encounter Summary ---
Author Organization [facility] [place] [address] Care Team Providers Care Web Page Designer Name Role Phone Devorah Epstein MD Primary Care Provider [phone] Reason for Visit * Auth/Cert (Routine) Specialty Diagnoses / Procedures Referred By Binh taylor Referred To Contact Diagnoses Atrial fib/flutter, transient bradycardia Albert Oreilly MD [facility] [place] [address] [facility] Referral ID Status Reason Start Date Expiration Date Visits Re quested Visits Authorized [id number] 1 1 Encounter Details Date Type Department Care Team (Late st Contact Info) Description 12/05/2023 3:00 PM EDT - 12/05/2023 5:00 PM EDT Surgery Electrophys[place] [address] Heriberto Geronimo MD [facility] [place] [address] ELECTROPHYSIOLOGY PROCEDURE Social History Tobacco Use Types Packs/Day Years Used Date Smoking Tobacco: Former Smokeless Tobacco: Never Alcohol Use Standard Drinks/Week Comments No 0 (1 standard drink = 0.6 oz pur e alcohol) [facility] Utilities Answer Date Recorded In the past 12 months has [employer] electric, gas, oil, or water [employer] threatened to shut off services in your [...] any time in the past 12 m [facility], were you homeless or living in a prison (including now)? No 12/04/2023 DH IPV Inpatient [...] HTN, HLD, A- fib, presented initially to [facility] for one month of episodic dyspnea on exertion and epigastric discomfort and now being transferred to [facility] for symptomatic a- fib with slow ventricular [...] Non-Hospital Problems Diagnosis Pericardial effusion Atherosclerosis of [place] coronary artery of [place] heart with angina pectoris History of Presentation (per 12/02/2023 Admission H&P): Patient reports a month of episodic dyspnea on exertion and epigastric discomfort. Daughter checkedpulse at home and it was in the 30s, which prompted presentation to [facility]. BP 130/80s, remains in the 30s without fluctuation. Troponin elevated at 82, in August was 71, priorto that was 61, described as stably/chronically mildly elevated. Follows with Dr. Hernandez at [facility] Cardiology. No known tick bites or other [...] up appointment with the cardiology department at [facility]. If you do not receive a call to schedule this, please call [facility] main line and ask for [facility] cardiology scheduling desk in order to set this appointment. You will additionally have follow up with the EP (Electrophysiology) team for your pacemaker. Your Inpatient Doctor: MD Albert Kendrick MD Aditya Sharma, MD Your Primary Care Provider: Devorah Epstein MD [phone] For questions regarding this document or issues relating to this hospitalization on the Medical Service, please contact your inpatient physician through the [facility] Smoke Control Supervisor . Issues afterhours and on weekends will [...] this product, please call the office at [phone]. Future Appointments and Orders Future Orders Complete By Expires Referral to Cardiology [REF12 Custom] As directed Process Instructions: If no progress note charted, please enter Clinical details in comments. Scheduling Instructions: Questions: My question or request is: 83 yo w/ hx of AF & CHB s/p micra placement Provider Contact Information: Devorah Epstein MD [address] / [facility] [address] Discharge References/Attachments: Discharge References/Attachments None documented in [...] this product, please call the office at [phone]. * Patient Instructions* Darrell Gallardo MD - [...] up appointment with the cardiology department at [facility]. If you do not receive a call to schedule this, please call [facility] main line and ask for [facility] cardiology scheduling desk in order to set this appointment. You will additionally have follow up with the EP (Electrophysiology) team for your pacemaker. Your Inpatient Doctor: MD Albert Kendrick MD Aditya Sharma, MD Your Primary Care Provider: Devorah Epstein MD [phone] For questions regarding this document or issues relating to this hospitalization on the Medical Service, please contact your inpatient physician through the [facility] Smoke Control Supervisor . Issues afterhours and on weekends will [...] Cardiac Device Implant Progress Note Serge Cabrera [id number] 12/06/2023 Assessment/Plan: Doing well post op day [...] Device Interrogation: Data Device: Medtronic Micra (VR2) #[id number] - Implanted 12/05/2023 Diagnostics Pacing Mode: VVIR Presenting EGMs: HEEL SPRAYER FIRST Underlying Rhythm: Atrial fibrillation Ventricular Pacin.2% Battery and Leads Voltage: 3.06V Longevity: >10 years Impedance (ohms) Sensing (mV) Threshold 730 15 0.25V @ 0.24 ms Comments: - Device is functioning appropriately - Programming changes None - Follow up: Per device clinic David Calixto MD 12/06/2023 Pager: [phone] Associated attestation - Nikki Serrano MD - [...] transportation. Will be transported to unit by SENIOR POLICY ADVISOR. Artem MICHELE * Nikki Serrano MD - [...] HTN, HLD, A- fib, presented initially to [facility] for one month of episodic dyspnea on exertion and epigastric discomfort and now being transferred to [facility] for symptomatic a- fib with slow ventricular [...] 2017, HTN, HLD, A-fib, presented initially to [facility] for one month of episodic dyspnea on exertion and epigastric discomfort and now being transferred to [facility] for symptomatic a-fib with slow ventricular response [...] course Cyndi Archer, Internal Medicine PGY-1 Pager [phone], M1-S2 Service Cardiology Attending Note I interviewed and examined the patient during comprehensive bedside rounds. I concur with the summary of interval events, active hospital-focused problem list and plan of care as described in the note below. I personally reviewed the medications, laboratory results, treatment decisions and updated the patient. Albert Oreilly MD, FACP, FACC Section of Cardiovascular Medicine [facility] Creative Art Directorclinical dietician [facility] This patient meets or has met [...] 2017, HTN, HLD, A-fib, presented initially to [facility] for one month of episodic dyspnea on exertion and epigastric discomfort and now being transferred to [facility] for symptomatic a-fib with slow ventricular response [...] course Cyndi Archer, Internal Medicine PGY-1 Pager [phone], M1-S2 Service Cardiology Attending Note I interviewed and examined the patient during comprehensive bedside rounds. I concur with the summary of interval events, active hospital-focused problem list and plan of care as described in the note below. I personally reviewed the medications, laboratory results, treatment decisions and updated the patient. Albert Oreilly MD, FACP, FACC Section of Cardiovascular Medicine [facility] Creative Art Directorclinical dietician [facility] This patient meets or has met [...] PCP: Devorah Epstein MD PCP phone #: [phone] ID/Chief Complaint: 83 yo M with H CAD s/p CABG (FRIAS-LAD, SVG-OM) in August 2017, HTN, HLD, A-fib, presented initially to [facility] for one month of episodic dyspnea on exertion and epigastric discomfort and now being transferred to [facility] for symptomatic a-fib with slow ventricular response and likely permanent pacemaker. History of Present Illness: Patient reports a month of episodic dyspnea on exertion and epigastric discomfort. Daughter checkedpulse at home and it was in the 30s, which prompted presentation to [facility]. BP 130/80s, remains in the 30s without fluctuation. Troponin elevated at 82, in August was 71, priorto that was 61, described as stably/chronically mildly elevated. Follows with Dr. Hernandez at [facility] Cardiology. No known tick bites or other [...] Atrial fib/flutter, transient Pericardial effusion Atherosclerosis of [place] coronary artery of [place] heart with angina pectoris Meds: No current [...] in the last 7068 hours. Invalid input(s): [id number] Heme: No results for input(s): LDH, HAPTOGLOBIN, [...] 2017, HTN, HLD, A-fib, presented initially to [facility] for one month of episodic dyspnea on exertion and epigastric discomfort and now being transferred to [facility] for symptomatic a-fib with slow ventricular response and likely permanent pacemaker. Plan to hold all AV guido blocking agents, will order tick panel and plan for TTE on arrival. Some concern for infiltrative cardiomyopathy based on prior view of biatrial enlargement. Will also obtain SPEP/UPEP/FLE on arrival. Admit to Cardiology, S2 Team Pager #[phone] #Atrial fibrillation with slow ventricular response -Consult [...] MD, FACP, FACC Section of Cardiovascular Medicine [facility] Creative Art Directorclinical dietician [facility] This patient meets or has met [...] DME used at home: respiratory supplies (CPAP ([facility])) DME Needed at Discharge: none Patient is insured through: Primary Insurance: MEDICARE Payor: MEDICARE / Plan: MEDICARE PART A & B / Product Type: *No Product type* / Secondary Insurance: [employer] [place] Prescription Coverage: Yes This plan was formulated [...] 2023. Patient seen in outpatient clinic at [facility] and receives 2 layer wraps changes [...] by changing from an oval to a [place] when it is stretched. 7. Start by [...] chat or the wound care team at [phone] or pager [phone] with skin and wound care concerns or [...] Operative Note Patient Name: Serge Cabrera : [id number] MR#: [id number] Case Date: 12/05/2023 Surgeon: Surgeons and Role: [...] Used? N/A * [facility] [place] - Keron Humphrey RN - 12/05/2023 3:04 [...] Admitted From: Transfer from another hospital Location: [facility] Reason for Hospitalization: low heart rate, and possible pacemaker Covid Vaccination Status: Unvaccinated Last COVID test: Past medical History: No past medical history on file. Hospitalizations Within the Past 30 Days: no previous admission in last 30 days Current Decision-Making Capacity: Self If AD's have not been completed the following surrogate would be surrogate decision maker per [place] surrogate decision making law. (Only good for 180 days) Any patient receiving care in [place] must abide by [place] law. The hierarchy for surrogate decision making [...] (i) The agent with financial power of assistant attorney general or a conservator appointed in accordance with [...] were you homeless or living in a prison (including now)?: No In the past 12 months has the [employer] gas, oil, or water [employer] threatened to shut off services in your [...] living?: No Current DME: respiratory supplies (CPAP ([facility])) Home Address confirmed as: [address] [place] [id number] Social & Family Supports: All names listed below confirmed with patient as current and correct Extended Emergency Contact Information Primary Emergency Contact: [place] [address] [place] Mobile Relation: Child Current Care Provided by: self Provides Primary Care For: no one Caregiver if needed: none Quality of Family relationships: helpful, involved, supportive Community Resources being provided currently: other (see comments) (Pt receives wound care from [facility] on a weekly basis. Also typically receives PT from [facility], but due to leg wound, PT has [...] *No Product type* / Secondary Insurance: [employer] [place] [employer] ONLY if patient has Medicare A&B - Does this patient have secondary insurance?: Yes ; Prescription Coverage: Yes Preferred Pharmacy: [id number] AT [address] [address] [place] Status: Patient is a : No Primary Care Provider confirmed: Devorah Epstein MD [phone] Patient/Caregiver Goals of Treatment: Potential Needs for Transition of Care: unable to assess Agency Referrals: TBD Transportation: no concerns Transportation Anticipated: family or friend will provide (Sanna (daughter) will provide a ride) Concerns to be Addressed: unable to assess Assessment: Patient is admitted to Cardiology service for Afib/flutter, transient. Uses a CPAP (formerly known as [employer]). Pt notes receiving wound care at [facility] on a weekly basis. Had been receiving PT at [facility] up until late last year, but had [...] of care planning. [facility] Ext. [phone] * Consult Note - Giulia Ibarra RN [...] CoFlex TLS Zinc Lite. He goes to [facility] for wound care and his does the dressing at home. Dressings are done every Monday and Monday. ? Current Wound Care Recommendations reviewed: Wound Care will follow up on Monday. Follow hospital standard for pressure injury prevention and skin care. Refer to adult/pediatric pressure ulcer prevention job aid in the clinical policy library. ?? ? Please contact Siena Ibarra RN on pager [phone] or the wound care team at [phone] with skin and wound care concerns or [...] 12/03/2023 Admit Date: 12/02/2023 Patient Location: [facility] Attending Bilingual Receptionist: Maggie Reason for Consult: We are seeing [...] chamber PPM (with or without LBBAP) versus REVENUE AGENT pending echo. Recommendations: -Recommend 48 hours of [...] with junctional escape. 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 He currently lives in [place], [place]. He is originally from the [facility] [place]. 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 Fabio Pringle MD 12/03/2023 Pager #[phone] Staff addendum: I have seen and evaluated [...] EST Hospital Encounter Non-Invasive [place] [id number] Arrived Scheduled Orders Name Type Priority Associated [...] & Lateral (Generic) (12/06/2023 6:59 AM EDT) [employer] WORKSTATION ID [id number] RAD Anatomical Region Laterality Modality Chest N/A [...] who have questions please contact the health care tech that requested your imaging first. ? Narrative [...] patients who have questions please contactthe health care tech that requested your imaging first. Albert Oreilly MD IMG DX ORDERABLES * (ABNORMAL) Hemogram (12/06/2023 1:53 AM EDT) White Blood Cell 7.6 4.0 - 9.5 x10(3)/mc L [facility] Red Blood Cell 4.84 4.58 - 5.54 x10(6)/[facility] Hemoglobin 14.0 13.7 - 16.5 g/dL [facility] Hematocrit 44.2 40.5 - 48.5 % [facility] Mean Cell Volume 91.3 82.9 - 93.1 fL [facility] Mean Cell Hemoglobin 28.9 27.5 - 32.1 pg [facility] Mean Cell Hemoglobin Concentration 31.7(L) 32.0 - 35.7 g/dL [facility] Platelet 140(L) 145 - 357 x10(3)/[facility] RDW Standard Deviation 51.2(H) 36.0 - 45.0 [facility] RDW coefficient of variation 15.4(H) 11.4 - 13.8 % [facility] Mean Platelet Volume 10.3 7.6 - 12.9 fL [facility] NRBC% auto 0.0 % [facility] NRBC Absolute 0.000 0.000 - 0.000 x10(3)/[facility] Blood 12/06/2023 1:53 AM EDT 12/06/2023 2:23 AM EDT Narrative Resulting Agency Comment Spec In Lab Albert Oreilly MD HEMATOLOGY ORDERAB LES [facility] [place] [address] * Phosphorus (12/06/2023 1:53 AM EDT) Phosphorus 2.8 2.5 - 4.5 mg/dL [facility] Blood 12/06/2023 1:53 AM EDT 12/06/2023 2:23 AM EDT Narrative Resulting Agency Comment Spec In Lab Albert Oreilly MD CHEMISTRY ORDERABL ES Performing Organization Address [facility] Co de Phone Number [facility] [place] [address] * Magnesium (12/06/2023 1:53 AM EDT) Magnesium 0.86 0.69 - 1.07 mmol/L [facility] Blood 12/06/2023 1:53 AM EDT 12/06/2023 2:23 AM EDT Narrative Resulting Agency Comment Spec In Lab Albert Oreilly MD CHEMISTRY ORDERABL ES Performing Organization Address [facility] de Phone Number [facility] [place] [address] * (ABNORMAL) Basic Metabolic Panel (non-fasting) (12/06/2023 1:53 AM EDT) Glucose 254(H) 65 - 199 mg/dL [facility] Comment:Diabetes: >=200 mg/d L plus symptoms Blood Urea Nitrogen 30(H) 10 - 20 mg/dL [facility] Creatinine 1.47 0.80 - 1.50 mg/dL [facility] Sodium 139 135 - 145 mmol/L [facility] Potassium 4.0 3.5 - 5.0 mmol/L [facility] Comment: Please note: ??Patients with WBC >100,000 may have falsely elevated Potassium levels. ??For accurate Potassium quantification in these patients send serum separator tube (gold top) for subsequent determinations. ??Contact the Clinical Chemistry Laboratory if there are any questions. Chloride 104 98 - 107 mmol/L [facility] Carbon Dioxide 19(L) 22 - 31 mmol/L [facility] Anion Gap 16(H) 5 - 15 mmol/L [facility] Calcium 9.8 8.5 - 10.5 mg/dL [facility] Est Glomerular Filtration Rate 47(L) >=60 mL/min/1. 73 m?? [facility] Comment: This patient's estimated GFR was [...] Lab Albert Oreilly MD CHEMISTRY ORDERABL ES [facility] [place] [address] * ELECTROPHYSIOLOGY PROCEDURE (12/05/2023 3:14 PM EDT) Anatomical Region Laterality Modality Other Narrative 12/06/2023 10:27 PM EDT [facility] Cardiac Electrophysiology Procedure Report Procedure: Implant leadless pacemaker Procedure Date: 12/05/2023 Smoke Control Supervisor: Heriberto Geronimo MD Charge Gang Weigher: Fabio Pringle MD Primary Care physician: Devorah Epstein MD Referring physician: Mei Sanchez MD Anesthesia: general anesthesia provided by anesthesia service Background: NrDarnell Cabrera ( 40) is an 83 y.o. 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 ??The Micra was then deployed. ?? [...] higher than the previous placement. RENEE and YI contrast injection views showed adequate positioning. After tug test electrical parameters remained excellent. The retention suture was cut and removed. ?? A muhxvs-yv-bzpaf stitch was placed around the sheath puncture site with syvek dressing underneath and the sheath removed with good hemostasis after a 20 minute manual hold. ?? Implant: Medtronic Micra VR Model [id number] Serial [id number] Programming: VVIR 60-120 Sensin.3 mV Impedance 830 [...] access Procedures performed: leadless pacemaker implantation (cpt 32641) Heriberto Geronimo MD S Cardiac Electrophysiology 12/06/2023 10:26 PM . Procedure Note Heriberto Geronimo MD - 12/06/2023 [facility] Cardiac Electrophysiology Procedure Report Procedure: Implant leadless pacemaker Procedure Date: 12/05/2023 Smoke Control Supervisor: Heriberto Geronimo MD Charge Gang Weigher: Fabio Pringle MD Primary Care physician: Devorah Epstein MD Referring physician: Mei Sanchez MD Anesthesia: general anesthesia provided by anesthesia service Background: NrDarnell Cabrera ( 40) is an 83 y.o. 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 The Micra was then deployed.Initial electrical [...] higher than the previous placement. RENEE and YI contrastinjection views showed adequate positioning. After tug test electricalparameters remained excellent. The retention suture was cut and removed.A yervnj-wf-ndqmp stitch was placed around the sheath puncture site withsyvek dressing underneath and the sheath removed with good hemostasisafter a 20 minute manual hold. Implant: Medtronic Micra VR Model [id number] Serial [id number] Programming: VVIR 60-120 Sensin.3 mV Impedance 830 [...] access Procedures performed: leadless pacemaker implantation (cpt 79951) Heriberto Geronimo MD [facility] Cardiac Electrophysiology 12/06/2023 10:26 PM . Heriberto Geronimo MD EP PROCEDURE ORDERAB LES * (ABNORMAL) Hemogram (12/05/2023 3:32 AM EDT) White Blood Cell 4.2 4.0 - 9.5 x10(3)/mc L [facility] Red Blood Cell 4.54(L) 4.58 - 5.54 x10(6)/mc L [facility] Hemoglobin 13.2(L) 13.7 - 16.5 g/dL [facility] Hematocrit 41.7 40.5 - 48.5 % [facility] Mean Cell Volume 91.9 82.9 - 93.1 fL [facility] Mean Cell Hemoglobin 29.1 27.5 - 32.1 pg [facility] Mean Cell Hemoglobin Concentration 31.7(L) 32.0 - 35.7 g/dL [facility] Platelet 106(L) 145 - 357 x10(3)/mc L [facility] RDW Standard Deviation 51.9(H) 36.0 - 45.0 fL [facility] RDW coefficient of variation 15.5(H) 11.4 - 13.8 % [facility] Mean Platelet Volume 10.5 7.6 - 12.9 fL [facility] NRBC% auto 0.0 % [facility] NRBC Absolute 0.000 0.000 - 0.000 x10(3)/mc L [facility] Blood 12/05/2023 3:32 AM EDT 12/05/2023 3:53 AM EDT Narrative Resulting Agency Comment Spec In Lab Albert Oreilly MD HEMATOLOGY ORDERAB LES Performing Organization Address [facility] [place] [address] * Phosphorus (12/05/2023 3:32 AM EDT) Phosphorus 3.9 2.5 - 4.5 mg/dL [facility] Blood 12/05/2023 3:32 AM EDT 12/05/2023 3:53 AM EDT Narrative Resulting Agency Comment Spec In Lab Albert Oreilly MD CHEMISTRY ORDERABL ES Performing Organization Address [facility] Co de Phone Number [facility] [place] [address] * Magnesium (12/05/2023 3:32 AM EDT) Magnesium 0.90 0.69 - 1.07 mmol/L [facility] Blood 12/05/2023 3:32 AM EDT 12/05/2023 3:53 AM EDT Narrative Resulting Agency Comment Spec In Lab Albert Oreilly MD CHEMISTRY ORDERABL ES [facility] [place] [address] * (ABNORMAL) Basic Metabolic Panel (non-fasting) (12/05/2023 3:32 AM EDT) Glucose 140 65 - 199 mg/dL [facility] Comment:Diabetes: >=200 mg/d L plus symptoms Blood Urea Nitrogen 33(H) 10 - 20 mg/dL [facility] Creatinine 1.54(H) 0.80 - 1.50 mg/dL [facility] Sodium 141 135 - 145 mmol/L [facility] Potassium 4.1 3.5 - 5.0 mmol/L [facility] [facility] Comment: Please note: ??Patients with WBC >100,000 may have falsely elevated Potassium levels. ??For accurate Potassium quantification in these patients send serum separator tube (gold top) for subsequent determinations. ??Contact the Clinical Chemistry Laboratory if there are any questions. Chloride 108(H) 98 - 107 mmol/L [facility] Carbon Dioxide 22 22 - 31 mmol/L [facility] Anion Gap 11 5 - 15 mmol/L [facility] Calcium 9.7 8.5 - 10.5 mg/dL [facility] Est Glomerular Filtration Rate 44(L) >=60 mL/min/1. 73 m?? [facility] Comment: This patient's estimated GFR was [...] MD CHEMISTRY ORDERABL ES Performing Organization Address [facility]/ZIP Co de Phone Number [facility] [place] [address] * Phosphorus (12/04/2023 9:42 AM EDT) Phosphorus 3.5 2.5 - 4.5 mg/dL [facility] Blood 12/04/2023 9:42 AM EDT 12/04/2023 10:20 AM EDT Narrative Resulting Agency Comment Spec In Lab Albert Oreilly MD CHEMISTRY ORDERABL ES Performing Organization Address [facility] de Phone Number [facility] [place] [address] * Magnesium (12/04/2023 9:42 AM EDT) Magnesium 0.96 0.69 - 1.07 mmol/L [facility] Blood 12/04/2023 9:42 AM EDT 12/04/2023 10:20 AM EDT Narrative Resulting Agency Comment Spec In Lab Albert Oreilly MD CHEMISTRY ORDERABL ES Performing Organization Address [facility] Co de Phone Number [facility] [place] [address] * (ABNORMAL) Basic Metabolic Panel (non-fasting) (12/04/2023 9:42 AM EDT) Glucose 131 65 - 199 mg/dL [facility] Comment:Diabetes: >=200 mg/d L plus symptoms Blood Urea Nitrogen 36(H) 10 - 20 mg/dL [facility] Creatinine 1.59(H) 0.80 - 1.50 mg/dL [facility] Sodium 140 135 - 145 mmol/L [facility] Potassium 4.3 3.5 - 5.0 mmol/L [facility] Comment: Please note: ??Patients with WBC >100,000 may have falsely elevated Potassium levels. ??For accurate Potassium quantification in these patients send serum separator tube (gold top) for subsequent determinations. ??Contact the Clinical Chemistry Laboratory if there are any questions. Chloride 106 98 - 107 mmol/L [facility] Carbon Dioxide 19(L) 22 - 31 mmol/L [facility] Anion Gap 15 5 - 15 mmol/L [facility] Calcium 10.4 8.5 - 10.5 mg/dL [facility] Est Glomerular Filtration Rate 43(L) >=60 mL/min/1. 73 m?? [facility] Comment: This patient's estimated GFR was [...] MD CHEMISTRY ORDERABL ES Performing Organization Address City/State/[facility] Co de Phone Number [facility] [place] [address] * ECHO COMPLETE W CONTRAST (12/04/2023 9:31 AM EDT) Anatomical Region Laterality Modality Cardiac Other 12/04/2023 8:27 AM EDT Narrative 12/04/2023 10:10 AM EDT [address] [place] [address] ? Echocardiogram Report Name: SERGE CABRERA ? Study Date: 12/04/2023 08:27 AMBP: 180/80 mmHg ? Patient Location: [address] : 1940 ? Height: 183 cm ? Account: [id number] Age: 83 yrs ? Weight: 127 kg Gender: Male ?BSA: 2.5 m2 Ordering Physician: ALBERT OREILLY Referring Physician: MEI SANCHEZ Performed By: Kaden Anthony RDCS Reason For Study: Atrial fib/flutter, transient Exam Location: [facility]. Interpretation Summary -Wall thickness is moderately increased [...] visual assessment, DI, and estimated MICHAEL. Procedure Complete-[id number]. Image enhancement Optison was used for left [...] Note Diego Hoyos MD - 12/04/2023 [address] [place] [id number] Echocardiogram Report Name: SERGE CABRERA Study Date: 408:27 AMBP: 180/80 mmHg Patient Location: [address] : 1940 Height: 183 cm Account: [id number] Age: 83 yrs Weight: 127 kg Gender: Male BSA: 2.5 m2 Ordering Physician: ALBERT OREILLY Referring Physician: MEI SANCHEZ Performed By: Kaden Anthony RDCS Reason For Study: Atrial fib/flutter, transient Exam Location: [facility]. Interpretation Summary -Wall thickness is moderately increased [...] visual assessment, DI, and estimated MICHAEL. Procedure Complete-[id number]. Image enhancement Optison was used for left [...] Electrophoresis, urine, random (12/03/2023 1:30 AM EDT) Protein, Urine 53(H) 0 - 12 mg/dL [facility] U Albumin 68 % total [facility] Globulin, Urine 32 % total [facility] M1 Band, Urine None Detected [facility] UPEP Comments See Note [facility] Comment: There is no evidence of clonal free light chains in this patient's urine sample. Urine 12/03/2023 1:30 AM EDT 12/03/2023 2:48 AM EDT Narrative Resulting Agency Comment Spec In Lab Albert Oreilly MD URINE ORDERABLES [facility] [place] [address] * (ABNORMAL) Immunoglobulins, Quantitative (12/03/2023 1:00 AM EDT) Pathologist [facility] Immunoglobulin G 685(L) 700 - 1,600 mg/dL [facility] Comment: Pediatric Reference Intervals obtained from the Cal[employer] Reference Interval project. http://www.[employer].ca/caliperproject/index.html IgA 142 70 - 400 mg/dL [facility] IgM 14(L) 40 - 230 mg/dL [facility] Blood Venous Draw / Unknown 12/03/2023 1:00 AM EDT 12/03/2023 1:17 AM EDT Narrative Resulting Agency Comment Spec In Lab Elías Duff MD CHEMISTRY ORDERABLES Performing Organization Address City/[facility]/ZIP Co de Phone Number [facility] [place] [address] * Immunofixation Electrophoresis (12/03/2023 1:00 AM EDT) [facility] Immunofixation Interpretation See Note [facility] Comment: RICHARD shows no evidence of a monoclonal immunoglobulin. Dr. Miguel A Park 12/06/2023 See scanned report. Blood Venous Draw / Unknown 12/03/2023 1:00 AM EDT 12/03/2023 1:17 AM EDT Narrative Resulting Agency Comment Spec In Lab Elías Duff MD CHEMISTRY ORDERABLES [facility] [place] [address] * (ABNORMAL) BMP w/fasting Glucose (12/03/2023 1:00 AM EDT) [facility] Glucose Fasting 134(H) 65 - 99 mg/dL [facility] Comment: ?Fasting* Glucose Interpretive Criteria Normal [...] of Diabetes Mellitus, Position Statement from the [place] [employer]. ??Diabetes Care, Volume 33, Supplement 1, Jun 2009 Blood Urea Nitrogen 35(H) 10 - 20 mg/dL [facility] Creatinine 1.86(H) 0.80 - 1.50 mg/dL [facility] Sodium 141 135 - 145 mmol/L [facility] Potassium 4.4 3.5 - 5.0 mmol/L [facility] Comment: Please note: ??Patients with WBC >100,000 may have falsely elevated Potassium levels. ??For accurate Potassium quantification in these patients send serum separator tube (gold top) for subsequent determinations. ??Contact the Clinical Chemistry Laboratory if there are any questions. Chloride 109(H) 98 - 107 mmol/L [facility] Carbon Dioxide 20(L) 22 - 31 mmol/L [facility] Anion Gap 12 5 - 15 mmol/L [facility] Calcium 9.8 8.5 - 10.5 mg/dL [facility] Est Glomerular Filtration Rate 35(L) >=60 mL/min/1. 73 m?? [facility] Comment: This patient's estimated GFR was [...] In Lab Elías Duff MD CHEMISTRY ORDERABLES [facility] [place] [address] * (ABNORMAL) Differential, Automated (12/03/2023 1:00 AM EDT) Neutrophil % 72.9 % [facility] Neutrophil Absolute 3.74 1.70 - 6.10 x10(3)/mc L [facility] Lymph % 14.5 % [facility] Lymphocytes Abs 0.7(L) 0.9 - 3.2 x10(3)/mc L [facility] Monocyte % 10.4 % [facility] Monocyte Abs 0.5 0.3 - 0.9 x10(3)/mc L [facility] Eos % 1.4 % [facility] Eosinophils Abs 0.1 0.0 - 0.4 x10(3)/mc L [facility] Basophil % 0.4 % [facility] Baso Absolute 0.0 0.0 - 0.1 x10(3)/mc L [facility] Immature Gran % 0.40 % [facility] Comment: Immature granulocytes(IG's)percentage and absolute count will include metamyelocytes, myelocytes, and promyelocytes. Blood smears from CBCs yielding IG's will be scanned manually for concordance. If this scan disagrees with the automated IG or if promyelocytes are noted, a manual differential will be performed. Immature Gran Absolute 0.02 0.00 - 0.04 x10(3)/mc L [facility] Blood 12/03/2023 1:00 AM EDT 12/03/2023 1:17 AM EDT Narrative Resulting Agency Comment Spec In Lab Elías Duff MD HEMATOLOGY ORDERABLE S [facility] [place] [address] * (ABNORMAL) Hemogram (12/03/2023 1:00 AM EDT) White Blood Cell 5.1 4.0 - 9.5 x10(3)/mc L [facility] Red Blood Cell 4.49(L) 4.58 - 5.54 x10(6)/mc L [facility] Hemoglobin 13.1(L) 13.7 - 16.5 g/dL [facility] Hematocrit 41.6 40.5 - 48.5 % [facility] Mean Cell Volume 92.7 82.9 - 93.1 [facility] Mean Cell Hemoglobin 29.2 27.5 - 32.1 pg [facility] Mean Cell Hemoglobin Concentration 31.5(L) 32.0 - 35.7 g/dL [facility] Platelet 123(L) 145 - 357 x10(3)/mc L [facility] RDW Standard Deviation 52.5(H) 36.0 - 45.0 [facility] RDW coefficient of variation 15.5(H) 11.4 - 13.8 % [facility] Mean Platelet Volume 10.1 7.6 - 12.9 [facility] NRBC% auto 0.0 % [facility] NRBC Absolute 0.000 0.000 - 0.000 x10(3)/mc L [facility] Blood 12/03/2023 1:00 AM EDT 12/03/2023 1:17 AM EDT Narrative Resulting Agency Comment Spec In Lab Elías Duff MD HEMATOLOGY ORDERABLE S [facility] [place] [address] * Free Light Chains, Serum (12/03/2023 1:00 AM EDT) Aromas Free Light Chain 2.66 0.72 - 2.75 mg/dL [facility] Lambda Free Light Chain 2.00 0.57 - 2.15 mg/dL [facility] Aromas/Lambda FLC Ratio 1.3300 0.4000 - 2.5800 [facility] Blood 12/03/2023 1:00 AM EDT 12/03/2023 1:17 AM EDT Narrative Resulting Agency Comment Spec In Lab Albert Oreilly MD CHEMISTRY ORDERABL ES [facility] [place] [address] * (ABNORMAL) Protein Electrophoresis, serum (12/03/2023 1:00 AM EDT) Total Prot Electrophoresis 6.0(L) 6.1 - 8.0 g/dL [facility] Albumin Electrophoresis 4.13 3.20 - 5.20 g/dL [facility] Alpha 1 Globulin 0.19 0.10 - 0.30 g/dL [facility] Alpha 2 Globulin 0.60 0.40 - 0.90 g/dL [facility] Beta Globulin 0.62 0.50 - 1.00 g/dL [facility] Gamma Globulin 0.46(L) 0.50 - 1.30 g/dL [facility] M1 Band Comments Below None Detected [facility] SPEP Comments See Note [facility] Comment: 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 Immunofixation (RICHARD) and quantitative immunoglobulin (NIK) testing will be performed on this sample. Blood 12/03/2023 1:00 AM EDT 12/03/2023 1:17 AM EDT Narrative Resulting Agency Comment Spec In Lab Albert Oreilly MD CHEMISTRY ORDERABL ES Performing Organization Address City/[facility]/ZIP Co de Phone Number [facility] [place] [address] * Lyme IgG & IgM Antibody (12/03/2023 1:00 AM EDT) Lyme Antibody Negative Negative [facility] Lyme Ab Comment Negative result does not exclude possibility of infection. [facility] Comment: Please note that as of 11/01/2022 that this testing is performed by the Special Chemistry Laboratory at [facility]. This change in testing location is associated with a change in testing methodology. Blood 12/03/2023 1:00 AM EDT 12/04/2023 7:29 AM EDT Narrative Resulting Agency Comment Spec In Lab Albert Oreilly MD IMMUNOLOGY ORDERAB LES Performing Organization Address [facility] Co de Phone Number [facility] [place] [address] * Acute Tick Borne Infection Panel (12/03/2023 1:00 AM EDT) [facility] Anaplasma phagocytophilum PCR Not Detected Not Detected [facility] Comment: INTERPRETATION: A positive result indicates [...] [employer] ([facility]) Laboratory at [facility]. It has not been cleared or approved by the FDA. The laboratory is regulated under CLIA as qualified to perform high-complexity testing. This test is used for clinical purposes. It should not be regarded as investigational or for research. Ehrlichia chaffeensis PCR Not Detected Not Detected [facility] Comment: INTERPRETATION: A positive result indicates [...] and its performance characteristics determined by the [employer] ([facility]) Laboratory at [facility]. It has not been cleared or approved by the FDA. The laboratory is regulated under CLIA as qualified to perform high-complexity testing. This test is used for clinical purposes. It should not be regarded as investigational or for research. Babesia microti PCR Not Detected Not Detected [facility] Comment: INTERPRETATION: A positive result indicates [...] and its performance characteristics determined by the [employer] [facility] at [facility]. It has not been cleared or approved by the FDA. The laboratory is regulated under CLIA as qualified to perform high-complexity testing. This test is used for clinical purposes. It should not be regarded as investigational or for research. Borrelia miyamotoi PCR Not Detected Not Detected [facility] Comment: INTERPRETATION: A positive result indicates [...] and its performance characteristics determined by the [employer] ([facility]) Laboratory at [facility]. It has not been cleared or approved by the FDA. The laboratory is regulated under CLIA as qualified to perform high-complexity testing. This test is used for clinical purposes. It should not be regarded as investigational or for research. Blood 12/03/2023 1:00 AM EDT 12/03/2023 9:01 AM EDT Narrative Resulting Agency Comment Spec In Lab Albert Oreilly MD MOLECULAR ORDERABL ES [facility] [place] [address] * Triglyceride (12/03/2023 1:00 AM EDT) Triglyceride 154 mg/dL [facility] Comment: Normal: ?<150 mg/dL Borderline High: 150-199 mg/dL High: ?200-499 mg/dL Very High: ? >gq=541 mg/dL Blood 12/03/2023 1:00 AM EDT 12/03/2023 1:17 AM EDT Narrative Resulting Agency Comment Spec In Lab Albert Oreilly MD CHEMISTRY ORDERABL ES [facility] [place] [address] * HDL/Cholesterol Profile (12/03/2023 1:00 AM EDT) [facility] Cholesterol, Total 78 mg/dL [facility] Comment: Desirable: ? <200 mg/dL Borderline High: 200-239 mg/dL Higher: ?>hk=581 mg/dL HDL Cholesterol 34 mg/dL [facility] Comment: Females: High Risk: <50 mg/dL Males: High Risk: <40 mg/dL Lipid Interpretation See Note [facility] Comment: It is important to review [...] ACC/AHA Guidelines (most recently Tiago et al. [facility] 03/29/22): For individuals with atherosclerotic cardiovascular disease (ASCVD)or LDL >zn=300 mg/dL, use a high-intensity statin (40-80 mg [...] Lab Albert Oreilly MD CHEMISTRY ORDERABL ES [facility] [place] [address] * LDL Cholesterol, Direct (12/03/2023 1:00 AM EDT) LDL Cholesterol, Direct 29 mg/dL [facility] Comment: Desirable: ? <100 mg/dL Above Desirable: 100-129 mg/dL Borderline High: 130-159 mg/dL High: ?160-189 mg/dL Very High: ? >sj=036 mg/dL If not reaching LDL goals on [...] MD CHEMISTRY ORDERABL ES Performing Organization Address [facility] Co de Phone Number [facility] [place] [address] * (ABNORMAL) Hemoglobin A1c (12/03/2023 1:00 AM EDT) Hemoglobin A1c 6.5(H) 4.3 - 5.6 % [facility] Comment: Reference Range: 4.3 - 5.6% [...] Mellitus, Diabetes Care 2013; 36: Suppl. 1, I80-85 Estimated Average Glucose See note mg/dL [facility] Comment: Estimated Average Glucose not appropriate for patients over 70 years of age. Blood 12/03/2023 1:00 AM EDT 12/03/2023 1:17 AM EDT Narrative Resulting Agency Comment Spec In Lab Albert Oreilly MD CHEMISTRY ORDERABL ES Performing Organization Address [facility] Co de Phone Number [facility] [place] [address] * APTT (12/03/2023 1:00 AM EDT) Partial Thromboplastin Time 31 25 - 37 sec [facility] Comment: The PTT is NOT appropriate for heparin monitoring. Use the Anti-Xa level for heparin monitoring (HEP UFH) or LMWH monitoring (HEP LMW). A PTT less than 37 seconds generally indicates adequate hemostasis. Blood 12/03/2023 1:00 AM EDT 12/03/2023 1:17 AM EDT Narrative Resulting Agency Comment Spec In Lab Albert Oreilly MD HEMATOLOGY ORDERAB LES Performing Organization Address [facility] de Phone Number [facility] [place] [address] * (ABNORMAL) Prothrombin Time (12/03/2023 1:00 AM EDT) Prothrombin Time 14.7(H) 9.4 - 12.5 sec [facility] International Normalization Ratio 1.3 [facility] Comment: An INR [...] MD HEMATOLOGY ORDERAB LES Performing Organization Address [facility] de Phone Number [facility] [place] [address] * Hepatic Function Panel (12/03/2023 1:00 AM EDT) Protein, Total 6.1 6.1 - 8.0 g/dL [facility] Albumin 4.0 3.2 - 5.2 g/dL [facility] Aspartate Aminotransferase 14 0 - 39 unit/L [facility] Alanine Aminotransferase 15 0 - 55 unit/L [facility] Alkaline Phosphatase 70 40 - 130 unit/L [facility] Bilirubin, Total 0.8 0.2 - 1.3 mg/dL [facility] Bilirubin, Direct 0.3 0.0 - 0.3 mg/dL [facility] Blood 12/03/2023 1:00 AM EDT 12/03/2023 1:17 AM EDT Narrative Resulting Agency Comment Spec In Lab Albert Oreilly MD CHEMISTRY ORDERABL ES Performing Organization Address [facility]/ZIP Co de Phone Number [facility] [place] [address] * (ABNORMAL) pro-Brain Natriuretic Peptide (12/03/2023 1:00 AM EDT) NT-proBNP 4,344(H) <=449 pg/mL [facility] Blood 12/03/2023 1:00 AM EDT 12/03/2023 1:17 AM EDT Narrative Resulting Agency Comment Spec In Lab Albert Oreilly MD CHEMISTRY ORDERABL ES Performing Organization Address [facility] Co de Phone Number [facility] [place] [address] * TSH (12/03/2023 1:00 AM EDT) Thyroid Stimulating Hormone 1.29 0.27 - 4.20 mcIU/mL [facility] Comment: Reference Interval (mcIU/mL): Females: ??First Trimester: 0.23-3.88 ??Second Trimester: 0.22-3.90 ??Third Trimester: 0.44-4.66 Blood 12/03/2023 1:00 AM EDT 12/03/2023 1:17 AM EDT Narrative Resulting Agency Comment Spec In Lab Albert Oreilly MD CHEMISTRY ORDERABL ES Performing Organization Address City/[facility]/ZIP Co de Phone Number [facility] [place] [address] * Phosphorus (12/03/2023 1:00 AM EDT) Phosphorus 3.1 2.5 - 4.5 mg/dL [facility] Blood 12/03/2023 1:00 AM EDT 12/03/2023 1:17 AM EDT Narrative Resulting Agency Comment Spec In Lab Albert Oreilly MD CHEMISTRY ORDERABL ES Performing Organization Address [facility] [place] [address] * Magnesium (12/03/2023 1:00 AM EDT) Magnesium 0.92 0.69 - 1.07 mmol/L [facility] Blood 12/03/2023 1:00 AM EDT 12/03/2023 1:17 AM EDT Narrative Resulting Agency Comment Spec In Lab Albert Oreilly MD CHEMISTRY ORDERABL ES Performing Organization Address [facility] de Phone Number [facility] [place] [address] documented in this encounter Visit Diagnoses Not [...] suppositories? No 1826 (Given - Provider: Maddie Hernandez RN) aspirin EC tablet 81 mg 81 mg, Oral, DAILY, First dose on Mon12/03/23 at 0900, Until Discontinued, Routine 08 (Given - Provider: Niki Coronado RN) 0834 (Given - Provider: Keron Humphrey RN)151 (MAR Hold - Provider: Admin Adt - Reason: Transfer to a Procedural area)1957 (AUG Unhold - Provider: Admin Adt) 0812 (Given - Provider: Keron Humphrey, RN) BUpivacaine [...] 0836 (Given - Provider: Keron Humphrey, LENY)1513 ([facility] Hold - Provider: Admin Adt - Reason: Transfer to a Procedural area)1957 ([facility] Unhold - Provider: Admin Adt) 0812 (Given - Provider: Keron Humphrey, RN) magnesium sulfate 2 g in sterile water 50 mL infusion (COMPLETED) 2 g, Intravenous, ONCE, 1 dose, On Mon12/05/23 at 0345, Administer over 120 Minutes 0351 (New Bag - Provider: Elma Adams, LENY)0551 (Stopped - Provider: Elma Adams, LENY) magnesium sulfate 2 g in sterile [...] 0835 (Given - Provider: Keron Humphrey, RN)151 (MAR Hold - Provider: Admin Adt - Reason: Transfer to a Procedural area)1957 (MAR Unhold - Provider: Admin Adt) 0812 (Given - Provider: Keron Humphrey, RN) polyethylene glycoL (Miralax) packet 17 g 17 g, Oral, DAILY, First dose on Mon12/04/23 at 1430, Until Discontinued, Routine 1349 (Given - Provider: Niki Coronado, LENY) 0900 (Not Given - Provider: Keron Humphrey, LENY - Reason: Patient/family refused)151 (MAR Hold - [...] area)1957 (MAR Unhold - Provider: Admin Adt) 0811 (Given - Provider: Keron Humphrey, RN) senna-docusate (Pericolace) 8.6-50 mg per tablet [...] Adt) 0900 (Not Given - Provider: Keron Humphrey, LENY - Reason: Patient/family refused) sodium chloride 0.9 % (flush) (BD PosiFlush Normal Saline 0.9) flush 5 mL 5 mL, Intravenous, 2 TIMES DAILY, First dose on Mon12/03/23 at 0015, Until Discontinued, Routine 08 (Given - Provider: Niki Coronado RN)2046 (Given - Provider: Elma Adams, LENY) 0900 (Given - Provider: Keron Humphrey, RN)151 (AUG Hold - Provider: Admin Adt - Reason: Transfer to a Procedural area)1957 ([facility] Unhold - Provider: Admin Adt)2100 (Given - Provider: Elma Adams, LENY) 0900 (Given - Provider: Keron Humphrey, LENY) tamsulosin (Flomax) capsule 0.4 mg (CANCELED) 0.4 mg, Oral, DAILY, First dose on Mon12/03/23 at 0900, Until Discontinued, DO NOT CRUSH OR CHEW, Routine 804 (Given - Provider: Niki Coronado RN) 0834 [...] Adt) 0813 (Given - Provider: Keron Humphrey, RN) PRN Medication Order 12/04/2023 12/05/2023 12/06/2023 acetaminophen [...] 1224 (Given - Provider: Niki Coronado RN) 151 ([facility] Hold - Provider: Admin Adt - Reason: Transfer to a Procedural area)1957 ([facility] Unhold - Provider: Admin Adt) lidocaine (Xylocaine) 1% (10 mg/mL) injection 3 mg 3 mg (0.3 mL), Subcutaneous, ONCE PRN, 1 dose, Starting on 12/02/23 at 2323, Until 12/06/23 at 1640, for discomfort with PIV insertion, Routine 151 ([facility] Hold - Provider: Admin Adt - Reason: Transfer to a Procedural area)1957 ([facility] Unhold - Provider: Admin Adt) perflutren protein-A microsphers (Optison) (0.22 mg/mL) injection 3 mL (COMPLETED) 3 mL, Intravenous, ONCE PRN, 1 dose, Starting on 12/04/23 at 0932, Until 12/04/23 at 0932, prn, Routine 0932 (Given - Provider: Kaden Anthony) polyethylene glycoL (Miralax) packet 17 g 17 g, Oral, DAILY PRN, Starting on 12/04/23 at 1438, Until Mon12/06/23 at 1640, Constipation, Routine 1513 ([facility] Hold - Provider: Admin Adt - Reason: Transfer to a Procedural area)1957 ([facility] Unhold - Provider: Admin Adt) sodium chloride 0.9 % (flush) (BD PosiFlush Normal Saline 0.9) flush 5-20 mL 5-20 mL, Intravenous, EVERY 1 MIN PRN, Starting on 12/02/23 at 2323, Until Mon12/06/23 at 1640, flush, Flush pertains to all indwelling lines. Flush per protocol found in the job aid using the link provided on this medication record., Routine 151 ([facility] Hold - Provider: Admin Adt - Reason: Transfer to a Procedural area)1957 ([facility] Unhold - Provider: Admin Adt) documented in this encounter Care Teams Web Page Designer Relationship Specialty Start Date End Date Devorah Epstein MD [facility] [address] [place] [phone] PCP - General Family Medicine 09/01/17 documented as of this encounter
--- OUTSIDE RECORDS SUMMARY | 2024-04-29 19:13 | XMS_ITS | Encounter Summary ---
[facility] Organization [facility] [place] [address] Care Team Providers Care Public Health Veterinarian Name Role Phone Devorah Epstein MD Primary Care Provider [phone] Reason for Referral * Diagnostic Test (Routine) - Closed Specialty Diagnoses / Procedures Referred By Binh taylor Referred To Contact Cardiology Diagnoses Pericardial effusion Procedures Echocardiogram Transthoracic(Leb) Vikash Smith APRN [facility] [place] [address] [facility] [place] [address] Referral ID Status Reason Start Date Expiration Date V isits Requested Visits Authorized [id number] Closed Specialty Service Requested 12/01/2017 12/01/2018 1 1 Reason for Visit * Auth/Cert Specialty Diagnoses / Procedures Referred By Binh taylor Referred To Contact Diagnoses Pericardial effusion Pericardial effusion [I31.3] n/a Procedures CARDIAC CATHETERIZATION Referral ID Status Reason Start Date Expiration Date Visits Re quested Visits Authorized [id number] 1 1 Encounter Details Date Type Department Care Team (Latest Contact Info) Description 11/30/2017 10:01 AM EDT - 12/01/2017 2:37 PM EDT Hospital Encounter Intermediate [place] [address] Kathie Panchal MD [facility] [place] [address] Pablo Govea MD Pericardial effusion (Primary Dx) Discharge Disposition: Home [...] this encounter Discharge Summaries * Vikash Smith, CONTENT DESIGNER - 12/01/2017 10:55 AM EDT Inpatient - Discharge Summary Patient Name: Keegan Cabrera Patient Age: 77 y.o. Birthdate: 1940 Language: Maltese Race: White Ethnicity: Not nor Admit Date: 11/30/2017 Discharge Date: 12/01/17 Attending Physician: Pablo Govea MD Follow-up Recommendations for Providers: Please continue routine management of cardiovascular risk factors including blood pressure, lipids,glucose, etc. Please note any changes to medications. Patient to follow-up with PCP, Devorah Epstein MD, in 1-2 weeks. Patient to follow-up with Rail Setter, Dr Marie, in two weeks. Patient to follow-up with Cardiac Surgery, Dr. Pablo Govea, in ~ 4 weeks with an Echo. Inpatient Provider Contact Information: [facility] Section of Cardiac Surgery [facility] [address] FAX [phone] Discharge Diagnoses (Hospital Problems) Primary Diagnoses: Pericardial effusion s/p pericardiocentesis 11/30/17 Secondary Diagnoses: SVT Other Diagnoses (Chronic Problems): Active Non-Hospital Problems Diagnosis ??? 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 Past Surgical History: Procedure Laterality Date ??? PRO CABG, ARTERIAL, SINGLE N/A 09/11/2017 @CABG, USING ARTERIAL GRAFT;SINGLE ARTERIAL GRAFT (WRVU 33.75) performed by Pablo Govea MD at [facility] OR ??? PRO CABG, ARTERY-VEIN, SINGLE N/A 09/11/2017 @CABG, VENOUS & ARTERIAL GRAFT;SINGLE VEIN GRAFT (WRVU 3.61) performed by Pablo Govea MD at [facility] OR ??? PRO ENDOSCOPY W/VIDEO-ASST VEIN HARVEST, CABG Right 09/11/2017 ENDOSCOPIC HARVEST VEIN(S) FOR CABG (WRVU 0.31) performed by Pablo Govea MD at [facility] MAIN OR Prior To Admission Medications [...] planned for drainage of pericardial effusion in factory laborer later today. Major Procedures/Operations: 11/30/17 Pericardiocentesis Hospital Course: Keegan Cabrera was admitted to [facility] on 11/30/2017 via the cardiac surgery clinic. He was brought to the factory laborer where Dr. Panchal performed echo guided pericardiocentesis with 1100cc serous blood tinged fluid removed. Drain was removed in the factory laborer. He tolerated the procedure and was brought [...] Pablo Govea and/or the Cardiac Surgery Physician Fur Scraper Team may be reached at . Weight: [...] should follow a low fat, low cholesterol, [place] [employer] Diet. Shower/Bath: You may shower [...] in 1-2 weeks. Patient to follow-up with Rail Setter, Dr. Marie, in two weeks. Patient to follow-up with Cardiac Surgery, Dr. Pablo Govea as needed Future Appointments and Orders Future Orders Complete By Expires Echocardiogram Transthoracic(Leb) [[id number] Custom] 12/02/2017 06/03/2018 Process Instructions: If the Echocardiogram is to be PERFORMED in a [facility] location other than [facility]--STOP and order [id number], Echocardiogram South/External. Scheduling Instructions: Questions: Is a Bubble Study requested?: Does the patient have Congenital Heart Disease?: Does patient require sedation?: GA rationale: Arrangements for VNA/home care: As above. Signed: VIKASH SMITH APRN [facility] Section of Cardiac Surgery [facility] [address] FAX [phone] Date: 12/01/2017 CC: Devorah Epstein MD No [...] Pablo Govea and/or the Cardiac Surgery Physician Fur Scraper Team may be reached at . ?? [...] should follow a low fat, low cholesterol, [place] [employer] Diet. ? Shower/Bath: You may [...] 1-2 weeks. ?? Patient to follow-up with Rail Setter, Dr. Marie, in two weeks. ?? Patient [...] answered. Pt discharged via wheel chair to [facility] with daughter in stable condition. * Sherlyn [...] guided Pericardiocentesis Baseline Frailty Assessment: Definitions from [employer] Study of Health and Aging Clinical Frailty [...] Full report to follow. KATHIE PANCHAL MD clinical research monitor Pager [phone] * Dalton Stevens MD - [...] consent was given. -Dalton Stevens MD (Pager #[phone]) documented in this encounter H&P Notes * [...] Health/Prescription Coverage: Primary Insurance: MEDICARE Secondary Insurance: [employer] Prescription Coverage: yes [facility] ? Primary Care Provider: Devorah Epstein MD [phone] ?? Patient/Caregiver Goals of Treatment: discharge to [...] planning. ?? Parvin Sim RN CM Pager [phone] * Plan of Care - Alley Martinez [...] AM EST Hospital Encounter Non-[place] [address] Arrived documented as of this encounter Procedures Procedure Name Priority Date/Time Associated Diagnosis Comments WIRELINE SUPERVISOR SCAN 12/04/2017 12:00 AM EDT ECHO LMTD [...] AM EDT Pericardial effusion TYPE AND SCREEN ([facility]/CGP/REYES) Routine 11/30/2017 10:20 AM EDT Pericardial effusion BASIC METABOLIC PANEL Routine 11/30/2017 10:20 AM EDT Pericardial effusion documented in this encounter Results * ECHO LMTD W/O CONTRAST W LMTD SPEC DOPP COLOR DOPP (01/02/2018 1:36 PM EDT) EF 80 HEARTLAB SYSTEM Anatomical Region Laterality Modality Other 01/02/2018 Narrative 01/02/2018 2:01 PM EDT Procedure: ?Transthoracic Echocardiogram Patient: ?DEBORAH VALENTINE P ?(Age): 1940(77y) Med Rec#: ? [id number] ?Sex: ?M ? Site Loc: ? [facility] ?Ht / Wt: ??183(cm)/130.6(k Pt. Loc: ?Echo Lab ?BSA: ?2.49 Study Date: ?? 01/02/2018 ?Pt. Type: Outpatient Tape: ? Referring: MIHAI Reading: Sergei Chambers ([id number]) Cyanide Pot Hardener: Gracia Banegas Interpreting Fellow: Carol Gallardo Diagnosis: [...] E-wave Vmax ?0.8 ?m/sec ? MV deceleration vjda083.3 ?msec ? MV A-wave Vmax ?0.6 ?m/sec [...] ? Mid-Inferior ?Normal ? Mid-Inferoseptal ?Normal ? [place]-Septal ? Normal ? [place]-Anterior ? Normal ? [place]-Lateral ?Normal ? [place]-Inferior ? Normal ? [place]-Tip ?Normal ? This report has been electronically signed by: Sergei Chambers MD ? 01/02/2018 14:01:14 Images reviewed and interpretation verified [facility] Cardiac Ultrasound Laboratory Procedure Note Sergei Chambers MD - 01/02/2018 Procedure: Transthoracic Echocardiogram Patient: DEBORAH BALL(Age): 1940(77y) Med Rec#: [id number] Sex: M Site Loc: [facility] Ht / Wt: 183(cm)/130.6(k Pt. Loc: Echo Lab BSA: 2.49 Study Date: 01/02/2018 Pt. Type: Outpatient Tape: Referring: MIHAI Reading: Sergei Chambers ([id number]) Cyanide Pot Hardener: Gracia Banegas Interpreting Fellow: Carol Gallardo Diagnosis: [...] MV E-wave Vmax 0.8 m/sec MV deceleration sqfo783.3 msec MV A-wave Vmax 0.6 m/sec MV [...] Normal Mid-Posterolateral Normal Mid-Inferior Normal Mid-Inferoseptal Normal [place]-Septal Normal [place]-Anterior Normal [place]-Lateral Normal [place]-Inferior Normal [place]-Tip Normal This report has been electronically signed by: Sergei Chambers MD 01/02/2018 14:01:14 Images reviewed and interpretation verified [facility] Cardiac Ultrasound Laboratory Vikash Smith QI ECHO ORDERABLES * SCAN DOC: WIRELINE SUPERVISOR (12/04/2017 12:00 AM EDT) Anatomical Region Laterality Modality Other Narrative 12/04/2017 12:00 AM EDT Ordered by an unspecified provider. Scanning Provider MEDIA MGR SCAN EXT O RDR/RSLT * ECHO LMTD W/O CONTRAST W LMTD SPEC DOPP COLOR DOPP (12/01/2017 9:27 AM EDT) EF 65 [employer] SYSTEM Anatomical Region Laterality Modality Other 12/01/2017 Narrative 12/01/2017 10:11 AM EDT Procedure: ?Transthoracic Echocardiogram Patient: ?DEBORAH Thomas ?(Age): 1940(77y) Med Rec#: ? [id number] ?Sex: ?M ? Site Loc: ? [facility] ?Ht / Wt: ??182(cm)/131(kg) Pt. Loc: ?Adult Floor ? BSA: ?2.48 Study Date: ?? 12/01/2017 ?Pt. Type: Inpatient Tape: ? Referring: Pablo Govea Reading: Sam Ricci ([id number]) Cyanide Pot Hardener: Jaswant Mata RDCS Diagnosis: *Limited post pericardiocentesis [...] 12/01/2017 10:10:49 Images reviewed and interpretation verified [facility] Cardiac Ultrasound Laboratory Procedure Note Sam Ricci MD - 12/01/2017 Procedure: Transthoracic Echocardiogram Patient: DEBORAH BALL(Age): 1940(77y) Med Rec#: [id number] Sex: M Site Loc: [facility] Ht / Wt: 182(cm)/131(kg) Pt. Loc: Adult Floor BSA: 2.48 Study Date: 12/01/2017 Pt. Type: Inpatient Tape: Referring: Pablo Govea Reading: Sam Ricci ([id number]) Cyanide Pot Hardener: Jaswant Mata RDCS Diagnosis: *Limited post pericardiocentesis [...] 12/01/2017 10:10:49 Images reviewed and interpretation verified [facility] Cardiac Ultrasound Laboratory Pablo Govea MD [...] (11/30/2017 4:29 PM EDT) Fluid Review Report [id number] ? Location: [facility]; [facility]; The signing pathologist has (i) examined the relevant preparation(s) for the specimen(s) and (ii) rendered or confirmed the diagnosis(es). . ? Fluid Review DIAGNOSIS Atypical lymphoid infiltrate seen. Electronically signed by: ??Miguel A Park MD Verified: ??12/01/2017 ?Hematopathologist Performed at: ??-[facility] Dept. of Pathology, [place], [place] DISCUSSION An atypical appearing lymphoid infiltrate [...] effusion. Indication for Study: ?? Diagnostic/therapeutic . [facility] 11/30/2017 4:29 PM EDT Gerald Arroyo MD PATHOLOGY/CYTOLOGY O RDERABLES Performing Organization Address [facility]/ZIP Co de Phone Number [facility] [place] [address] * AFB culture (11/30/2017 3:42 PM EDT) Acid Fast Bacilli Culture No Acid Fast Bacilli isolated [facility] Acid Fast Stain No Acid Fast Bacilli seen [facility] Pericardial fluid specimen (specimen) 11/30/2017 3:42 PM EDT 11/30/2017 3:42 PM EDT Narrative Resulting Agency Comment Spec In Lab Pablo Govea MD MICROBIOLOGY - GENE RAL ORDERABLES Performing Organization Address [facility] Co de Phone Number [facility] [place] [address] * Body Fluid HOLD (11/30/2017 2:10 PM EDT) HOLD, FLD Sample in lab. [facility] Body fluid specimen (specimen) Other / Unknown 11/30/2017 2:10 PM EDT 11/30/2017 3:45 PM EDT Pablo Govea MD BODY FLUIDS AND STO OLS ORDERABLES Performing Organization Address [facility] Co de Phone Number [facility] [place] [address] * Cholesterol Level Body Fluid Pericardial Fluid (11/30/2017 2:10 PM EDT) Cholesterol, Fluid 77 mg/dL [facility] Comment: No reference range is available for the specimen type submitted. ??The performance of this assay for the submitted type has not been validated and results should be interpreted accordingly and with regard to the patient's clinical status. Chol, BF Type Pericardial fl M [facility] Pericardial fluid specimen (specimen) 11/30/2017 2:10 PM EDT 11/30/2017 3:28 PM EDT Narrative Resulting Agency Comment Spec In Lab Pablo Govea MD BODY FLUIDS AND STO OLS ORDERABLES Performing Organization Address [facility] Co de Phone Number [facility] [place] [address] * Lactate Dehydrogenase Body Fluid Pericardial Fluid (11/30/2017 2:10 PM EDT) Lactate Dehydrogenase, Fluid 247 unit/L [facility] Comment: No reference range is available for the specimen type submitted. ??The performance of this assay for the submitted type has not been validated and results should be interpreted accordingly and with regard to the patient's clinical status. LDH, Fld Type Pericardial fl M [facility] Pericardial fluid specimen (specimen) 11/30/2017 2:10 PM EDT 11/30/2017 3:28 PM EDT Narrative Resulting Agency Comment Spec In Lab Pablo Govea MD BODY FLUIDS AND STO OLS ORDERABLES Performing Organization Address [facility] Phone Number [facility] [place] [address] * Protein Level Body Fluid Pericardial Fluid (11/30/2017 2:10 PM EDT) Protein, Fluid 5.3 gm/dL [facility] Comment: There is no reference range available for the specimen type submitted. For determination of transudative vs. exudative pleural effusions: Transudates: Pleural Total Protein/Serum Total Protein <0.5 g/dL. Exudates: Pleural Total Protein/Serum Total Protein >0.5 g/dL. Prot, Fld Type Pericardial fl [facility] Pericardial fluid specimen (specimen) 11/30/2017 2:10 PM EDT 11/30/2017 3:28 PM EDT Narrative Resulting Agency Comment Spec In Lab Pablo Govea MD BODY FLUIDS AND STO OLS ORDERABLES Performing Organization Address [facility]/State/ZIP Co de Phone Number [facility] [place] [address] * Glucose Level Body Fluid Pericardial Fluid (11/30/2017 2:10 PM EDT) Glucose, Fluid 117 mg/dL [facility] Comment: No reference range is available for the specimen type submitted. ??The performance of this assay for the submitted type has not been validated and results should be interpreted accordingly and with regard to the patient's clinical status. Gluc, Fld Type Pericardial [facility] Pericardial fluid specimen (specimen) 11/30/2017 2:10 PM EDT 11/30/2017 3:28 PM EDT Narrative Resulting Agency Comment Spec In Lab Pablo Govea MD BODY FLUIDS AND STO OLS ORDERABLES [facility] [place] [address] * Cell Count Body Fluid Pericardial Fluid (11/30/2017 2:10 PM EDT) Body Fluid Source Pericardial [facility] Color, Fld Red [facility] Appearance, Fld Cloudy [facility] WBC Count, Fld 2,089 /mcl [facility] Comment: Guideline listed below apply to all body fluids. Differentials on BAL specimens are performed by the Cytology lab section. When Body Fluid WBC count is greater than Zero, a smear is made and scanned. All scan information is correlated with numeric results prior to being released to patients chart. Polymorphonuclear cells BF % 1 % [facility] Comment: Polymorphonuclear cell percent and absolute values may contain Neutrophils, Eosinophils, and Basophils. Body fluid smear will be scanned manually for concordance. Mononuclear cells BF % 99 % [facility] Comment: Mononuclear cell percent and absolute values may contain Lymphocytes and Monocytes. Body fluid smear will be scanned manually for concordance. Polymorphonuclear cells BF ABS 22 /[facility] Comment: Polymorphonuclear cell percent and absolute values may contain Neutrophils, Eosinophils, and Basophils. Body fluid smear will be scanned manually for concordance. Mononuclear cells BF ABS 2,067 /mcl [facility] Comment: Mononuclear cell percent and absolute values may contain Lymphocytes and Monocytes. Body fluid smear will be scanned manually for concordance. Pericardial fluid specimen (specimen) 11/30/2017 2:10 PM EDT 11/30/2017 3:28 PM EDT Narrative Resulting Agency Comment Spec In Lab Pablo Govea MD BODY FLUIDS AND STO OLS ORDERABLES Performing Organization Address City/[facility]/ZIP Co de Phone Number [facility] [place] [address] * ABORH Recheck Status (11/30/2017 10:20 AM EDT) ABORH Type Recheck Completed [facility] Blood specimen (specimen) 11/30/2017 10:20 AM EDT 11/30/2017 10:31 AM EDT Narrative Resulting Agency Comment Spec In Lab [facility] B[facility] LAB O RDERABLES Performing Organization Address [facility] Co de Phone Number [facility] [place] [address] * Antibody screen (11/30/2017 10:20 AM EDT) Ab Screen Interp Negative [facility] Expires at [id number] on: 12/03/2017 [facility] Blood specimen (specimen) 11/30/2017 10:20 AM EDT 11/30/2017 10:31 AM EDT Narrative Resulting Agency Comment Spec In Lab [facility] BLOOD B[facility] LAB O RDERABLES Performing Organization Address City/[facility]/ZIP Co de Phone Number [facility] [place] [address] * ABO/Rh Typing (11/30/2017 10:20 AM EDT) ABORH Type B Pos [facility] Blood specimen (specimen) 11/30/2017 10:20 AM EDT 11/30/2017 10:31 AM EDT Narrative Resulting Agency Comment Spec In Lab David [facility] BLOOD BANK LAB O RDERABLES [facility] [place] [address] * (ABNORMAL) Differential, Automated (11/30/2017 10:20 AM EDT) Neutrophil % 73.4 % [facility] Neutrophil Absolute 4.30 1.70 - 6.10 x10(3)/mc L [facility] Lymph % 13.3 % [facility] Lymphocytes Abs 0.8(L) 0.9 - 3.2 x10(3)/mc L [facility] Monocyte % 9.2 % [facility] Monocyte Abs 0.5 0.3 - 0.9 x10(3)/mc L [facility] Eos % 3.1 % [facility] Eosinophils Abs 0.2 0.0 - 0.4 x10(3)/mc L [facility] Basophil % 0.5 % [facility] Baso Absolute 0.0 0.0 - 0.1 x10(3)/mc L [facility] Immature Gran % 0.50 % [facility] Comment: Immature granulocytes(IG's)percentage and absolute count will include metamyelocytes, myelocytes, and promyelocytes. Blood smears from CBCs yielding IG's will be scanned manually for concordance. If this scan disagrees with the automated IG or if promyelocytes are noted, a manual differential will be performed. Immature Gran Absolute 0.03 0.00 - 0.04 x10(3)/mc L [facility] Blood specimen (specimen) 11/30/2017 10:20 AM EDT 11/30/2017 10:31 AM EDT Narrative Resulting Agency Comment Spec In Lab David YE HEMATOLOGY ORDER KARENA [facility] [place] [address] * (ABNORMAL) Hemogram (11/30/2017 10:20 AM EDT) White Blood Cell 5.9 4.0 - 9.5 x10(3)/mc L [facility] Red Blood Cell 4.43(L) 4.58 - 5.54 x10(6)/mc L [facility] Hemoglobin 11.4(L) 13.7 - 16.5 gm/dL [facility] Hematocrit 36.8(L) 40.5 - 48.5 % [facility] Mean Cell Volume 83.1 82.9 - 93.1 fL [facility] Mean Cell Hemoglobin 25.7(L) 27.5 - 32.1 pg [facility] Mean Cell Hemoglobin Concentration 31.0(L) 32.0 - 35.7 gm/dL [facility] Platelet 179 145 - 357 x10(3)/mc L [facility] RDW Standard Deviation 41.1 36.0 - 45.0 fL [facility] RDW coefficient of variation 13.6 11.4 - 13.8 % [facility] Mean Platelet Volume 9.5 7.6 - 12.9 fL [facility] NRBC% auto 0.0 % [facility] NRBC Absolute 0.000 0.000 - 0.000 x10(3)/mc L [facility] Blood specimen (specimen) 11/30/2017 10:20 AM EDT 11/30/2017 10:31 AM EDT Narrative Resulting Agency Comment Spec In Lab David YE HEMATOLOGY ORDER KARENA [facility] [place] [address] * (ABNORMAL) Basic Metabolic Panel (non-fasting) (11/30/2017 10:20 AM EDT) Glucose 128 65 - 199 mg/dL [facility] Comment:Diabetes: >=200 mg/d L plus symptoms Blood Urea Nitrogen 17 10 - 20 mg/dL [facility] [...] 107 mmol/L [facility] Carbon Dioxide 26 22 - 31 mmol/L [facility] Anion Gap 13 5 - 15 mmol/L [facility] Calcium 10.0 8.5 - 10.5 mg/dL [facility] Est Glomerular Filtration Rate 54(L) >=60 [facility] Comment: The reported eGFR should be multiplied by 1.2 for patients. The MDRD is not an appropriate measure of renal function for patients with body mass extremes or in patients with acute kidney failure. http://[employer]/DHnkdep http://[employer]/DHMCnkf Blood specimen (specimen) 11/30/2017 10:20 AM EDT 11/30/2017 10:31 AM EDT Narrative Resulting Agency Comment Spec In Lab Pablo Govea MD CHEMISTRY ORDERABLE S [facility] [place] [address] documented in this encounter Visit Diagnoses Diagnosis [...] Discontinued, Routine 1641 (Given - Provider: Sherlyn Tamayo RN) senna-docusate (PERICOLACE) 8.6-50 mg per tablet 2 tablet 2 tablet, Oral, DAILY, First dose on Kimberly 11/30/17 at 1630, Until Discontinued, Routine 1638 (Given [...] 11/30/17 at 1600, Until 12/01/17 at 1637, flush, Flush pertains to all indwelling lines. Flush per protocol found in the job aid using the link provided on this medication record., Routine Linked Groups Order Group 1: ondansetron (ZOFRAN) tablet 4-8 mgJump to med 4-8 mg, Oral, EVERY 8 HOURS PRN, Starting on Kimberly 6 at 1600, Until 12/01/17 at 1637, Nausea, [...] first. documented in this encounter Care Teams Public Health Veterinarian Relationship Specialty Start Date End Date Devorah Epstein MD [facility] [address] [place] [address] PCP - General Family Medicine 09/01/17 documented as of this encounter
--- OUTSIDE RECORDS SUMMARY | 2024-04-29 19:13 | XMS_ITS | Encounter Summary ---
[place] [address] Care Team Providers Care Quality Assurance Assistant Name Role Phone Devorah Epstein MD Primary Care Provider [phone] Encounter Details Date Type Department Care Team (Late st Contact Info) Description 02/07/2018 External [place] [address] Ramon Jack MD [facility] [place] [address] Social History Tobacco Use Types Packs/Day Years [...] AM EST Hospital Encounter [place] [id number] Arrived documented as of this encounter Procedures Procedure Name Priority Date/Time Associated Diagnosis Comments ECG SCAN Routine 02/07/2018 documented in this encounter Results * Scan Doc: ECG (02/07/2018) Ramon Jack MD MEDIA MGR SCAN EXT O RDR/RSLT documented in this encounter Visit Diagnoses Not on filedocumented in this encounter Care Teams Quality Assurance Assistant Relationship Specialty Start Date End Date Devorah Epstein MD [facility] [address] [place] [address] PCP - General Family Medicine 09/01/17 documented as of this encounter
--- OUTSIDE RECORDS SUMMARY | 2024-04-29 19:14 | XMS_ITS | Encounter Summary ---
[place] [address] Care Team Providers Care Librarian Assistant Name Role Phone Devorah Epstein MD Primary Care Provider [phone] Reason for Visit * Auth/Cert Specialty Diagnoses / Procedures Referred By Binh taylor Referred To Contact Diagnoses Pericardial effusion Pericardial effusion [I31.3] n/a Procedures CARDIAC CATHETERIZATION Referral ID Status Reason Start Date Expiration Date Visits Re quested Visits Authorized [id number] 1 1 Encounter Details Date Type Department Care Team (Late st Contact Info) Description 11/30/2017 9:30 AM EDT - 11/30/2017 10:30 AM EDT Surgery [place] [address] Kathie Panchal MD [facility] [place] [address] CARDIAC CATHETERIZATION Social History Tobacco Use Types [...] - Discharge Summary Patient Name: Keegan ALICEAN: [id number] Patient Age: 77 y.o. Birthdate: 1940 Language: Maori Race: White Ethnicity: Not nor Admit Date: 11/30/2017 Discharge Date: 12/01/17 Attending Physician: Pablo Govea MD Follow-up Recommendations for Providers: Please continue routine management of cardiovascular risk factors including blood pressure, lipids,glucose, etc. Please note any changes to medications. Patient to follow-up with PCP, Devorah Epstein MD, in 1-2 weeks. Patient to follow-up with Supervisor Education, Dr Marie, in two weeks. Patient to follow-up with Cardiac Surgery, Dr. Pablo Govea, in ~ 4 weeks with an Echo. Inpatient Provider Contact Information: [facility] Section of Cardiac Surgery [facility] [address] FAX [phone] Discharge Diagnoses (Hospital Problems) Primary Diagnoses: Pericardial effusion s/p pericardiocentesis 11/30/17 Secondary Diagnoses: SVT Other Diagnoses (Chronic Problems): Active Non-Hospital Problems Diagnosis ??? 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 Past Surgical History: Procedure Laterality Date ??? PRO CABG, ARTERIAL, SINGLE N/A 09/11/2017 @CABG, USING ARTERIAL GRAFT;SINGLE ARTERIAL GRAFT (WRVU 33.75) performed by Pablo Govea MD at [facility] MA[facility] OR ??? PRO CABG, ARTERY-VEIN, SINGLE N/A 09/11/2017 @CABG, VENOUS & ARTERIAL GRAFT;SINGLE VEIN GRAFT (WRVU 3.61) performed by Pablo Govea MD at [facility] OR ??? PRO ENDOSCOPY W/VIDEO-ASST VEIN HARVEST, CABG Right 09/11/2017 ENDOSCOPIC HARVEST VEIN(S) FOR CABG (WRVU 0.31) performed by Pablo Govea MD at [facility] OR Prior To Admission Medications [...] planned for drainage of pericardial effusion in construction laborer later today. Major Procedures/Operations: 11/30/17 Pericardiocentesis Hospital Course: Keegan Cabrera was admitted to [facility] on 11/30/2017 via the cardiac surgery clinic. He was brought to the construction laborer where Dr. Panchal performed echo guided pericardiocentesis with 1100cc serous blood tinged fluid removed. Drain was removed in the construction laborer. He tolerated the procedure and was [...] Pablo Govea and/or the Cardiac Surgery Physician Director Engineering Team may be reached at . Weight: [...] should follow a low fat, low cholesterol, [place] Heart [employer] Diet. Shower/Bath: You may shower [...] there is a lot of swelling, apply kahtrin wraps during the day and remove at bedtime. Elevate your legs when you are sitting. Home oxygen therapy: N/A Follow up appointments: Patient to follow-up with PCP, Devorah Epstein MD, in 1-2 weeks. Patient to follow-up with Supervisor Education, Dr. Marie, in two weeks. Patient to follow-up with Cardiac Surgery, Dr. Pablo Govea as needed Future Appointments and Orders Future Orders Complete By Expires Echocardiogram Transthoracic(Leb) [[id number] Custom] 12/02/2017 06/03/2018 Process Instructions: If the Echocardiogram is to be PERFORMED in a [facility] location other than [place]--STOP and order [id number], Echocardiogram South/External. Scheduling Instructions: Questions: Is a Bubble Study requested?: Does the patient have Congenital Heart Disease?: Does patient require sedation?: GA rationale: Arrangements for VNA/home care: As above. Signed: VIKASH SMITH APRN [facility] Section of Cardiac Surgery [facility] [address] FAX [phone] Date: 12/01/2017 CC: Devorah Epstein MD No referring provider defined for this encounter. documented in this encounter Discharge Instructions * Patient Instructions* Vikash Smith, CONTRACT OFFICER - 12/01/2017 1:45 PM EDT Discharge Instructions: [...] Pablo Govea and/or the Cardiac Surgery Physician Director Engineering Team may be reached at . ?? [...] should follow a low fat, low cholesterol, [place] Heart [employer] Diet. ? Shower/Bath: You may [...] 1-2 weeks. ?? Patient to follow-up with Supervisor Education, Dr. Marie, in two weeks. ?? Patient [...] answered. Pt discharged via wheel chair to [facility] with daughter in stable condition. * Sherlyn [...] guided Pericardiocentesis Baseline Frailty Assessment: Definitions from [place] Study of Health and Aging Clinical Frailty [...] Full report to follow. KATHIE PANCHAL MD orthotic and prosthetic technician Pager [phone] * Dalton Stevens MD - [...] consent was given. -Dalton Stevens MD (Pager #[phone]) documented in this encounter H&P Notes * [...] Health/Prescription Coverage: Primary Insurance: MEDICARE Secondary Insurance: [employer] ZAMBIAN Prescription Coverage: yes Preferred Pharmacy: [email or web address] ? Primary Care Provider: Devorah Epstein MD [phone] ?? Patient/Caregiver Goals of Treatment: discharge to [...] care planning. ?? 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 [id number] ?Sex: ?M ? Site Loc: ? [facility] ?Ht / Wt: ??183(cm)/130.6(k Pt. Loc: ?Echo Lab ?BSA: ?2.49 Study Date: ?? 01/02/2018 ?Pt. Type: Outpatient Tape: ? Referring: MIHAI Reading: Sergei Chambers ([id number]) Regional Project Manager: Gracia Banegas Interpreting Fellow: Carol Gallardo Diagnosis: [...] E-wave Vmax ?0.8 ?m/sec ? MV deceleration xjrv625.3 ?msec ? MV A-wave Vmax ?0.6 ?m/sec [...] ? Mid-Inferior ?Normal ? Mid-Inferoseptal ?Normal ? [place]-Septal ? Normal ? [place]-Anterior ? Normal ? [place]-Lateral ?Normal ? [place]-Inferior ? Normal ? [place]-Tip ?Normal ? This report has been electronically signed by: Sergei Chambers MD ? 01/02/2018 14:01:14 Images reviewed and interpretation verified [facility] Cardiac Ultrasound Laboratory Procedure Note Sergei Chambers MD - 01/02/2018 Procedure: Transthoracic Echocardiogram Patient: KENDRICK BALL(Age): 1940(77y) Med Rec#: [id number] Sex: M Site Loc: [facility] Ht / Wt: 183(cm)/130.6(k Pt. Loc: Echo Lab BSA: 2.49 Study Date: 01/02/2018 Pt. Type: Outpatient Tape: Referring: MIHAI Reading: Sergei Chambers ([id number]) Regional Project Manager: Gracia Banegas Interpreting Fellow: Carol Gallardo Diagnosis: [...] MV E-wave Vmax 0.8 m/sec MV deceleration tzwb394.3 msec MV A-wave Vmax 0.6 m/sec MV [...] Normal Mid-Posterolateral Normal Mid-Inferior Normal Mid-Inferoseptal Normal [place]-Septal Normal [place]-Anterior Normal [place]-Lateral Normal [place]-Inferior Normal [place]-Tip Normal This report has been electronically signed by: Sergei Chambers MD 01/02/2018 14:01:14 Images reviewed and interpretation verified [facility] Cardiac [facility]trasound Laboratory Vikash Smith APRN ECHO ORDERABLES * 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 [id number] ?Sex: ?M ? Site Loc: ? [facility] ?Ht / Wt: ??182(cm)/131(kg) Pt. Loc: ?Adult Floor ? BSA: ?2.48 Study Date: ?? 12/01/2017 ?Pt. Type: Inpatient Tape: ? Referring: Pablo Govea Reading: Sam Ricci ([id number]) Regional Project Manager: Jaswant Mata RDCS Diagnosis: *Limited post pericardiocentesis [...] 12/01/2017 10:10:49 Images reviewed and interpretation verified [facility] Cardiac [facility] Procedure Note Sam Ricci MD - 12/01/2017 Procedure: Transthoracic Echocardiogram Patient: KENDRICK Thomas DOB(Age): 1940(77y) Med Rec#: [id number] Sex: M Site Loc: [facility] Ht / Wt: 182(cm)/131(kg) Pt. Loc: Adult Floor BSA: 2.48 Study Date: 12/01/2017 Pt. Type: Inpatient Tape: Referring: Pablo Govea Reading: Sam Ricci ([id number]) Regional Project Manager: Jaswant Mata [facility] Diagnosis: *Limited post pericardiocentesis BP: 142/67 HR: [...] 12/01/2017 10:10:49 Images reviewed and interpretation verified [facility] Cardiac [facility]trasound Laboratory Pablo Govea MD ECHO [...] (11/30/2017 4:29 PM EDT) Fluid Review Report [id number] ? Location: [facility]; [facility]; The signing pathologist has (i) examined the relevant preparation(s) for the specimen(s) and (ii) rendered or confirmed the diagnosis(es). . ? Fluid Review DIAGNOSIS Atypical lymphoid infiltrate seen. Electronically signed by: ??Vivian DORSEY, Miguel A Verified: ??12/01/2017 ?Hematopathologist Performed at: ??-[facility] Dept. of Pathology, [place], [place] DISCUSSION An atypical appearing lymphoid infiltrate [...] effusion. Indication for Study: ?? Diagnostic/therapeutic . [facility] 11/30/2017 4:29 PM EDT Gerald Arroyo MD PATHOLOGY/CYTOLOGY O RDERABLES Performing Organization Address [facility] de Phone Number [facility] [place] [address] * AFB culture (11/30/2017 3:42 PM EDT) Acid Fast Bacilli Culture No Acid Fast Bacilli isolated [facility] Acid Fast Stain No Acid Fast Bacilli seen [facility] Pericardial fluid specimen (specimen) 11/30/2017 3:42 PM EDT 11/30/2017 3:42 PM EDT Narrative Resulting Agency Comment Spec In Lab Pablo Govea MD MICROBIOLOGY - GENE RAL ORDERABLES Performing Organization Address [facility] de Phone Number [facility] [place] [address] * Body Fluid HOLD (11/30/2017 2:10 PM EDT) HOLD, FLD Sample in lab. [facility] Body fluid specimen (specimen) Other / Unknown 11/30/2017 2:10 PM EDT 11/30/2017 3:45 PM EDT Pablo Govea MD BODY FLUIDS AND STO OLS ORDERABLES Performing Organization Address [facility]/ZIP Co de Phone Number [facility] [place] [address] * Cholesterol Level Body Fluid Pericardial Fluid (11/30/2017 2:10 PM EDT) Cholesterol, Fluid 77 mg/dL [facility] Comment: No reference range is available for the specimen type submitted. ??The performance of this assay for the submitted type has not been validated and results should be interpreted accordingly and with regard to the patient's clinical status. Chol, BF Type Pericardial fl [facility] Pericardial fluid specimen (specimen) 11/30/2017 2:10 PM EDT 11/30/2017 3:28 PM EDT Narrative Resulting Agency Comment Spec In Lab Pablo Govea MD BODY FLUIDS AND STO OLS ORDERABLES Performing Organization Address [facility] de Phone Number [facility] [place] [address] * Lactate Dehydrogenase Body Fluid Pericardial Fluid (11/30/2017 2:10 PM EDT) Lactate Dehydrogenase, Fluid 247 unit/L [facility] Comment: No reference range is available for the specimen type submitted. ??The performance of this assay for the submitted type has not been validated and results should be interpreted accordingly and with regard to the patient's clinical status. LDH, Fld Type Pericardial fl M [facility] Pericardial fluid specimen (specimen) 11/30/2017 2:10 PM EDT 11/30/2017 3:28 PM EDT Narrative Resulting Agency Comment Spec In Lab Pablo Govea MD BODY FLUIDS AND STO OLS ORDERABLES Performing Organization Address [facility] Co de Phone Number [facility] [place] [address] * Protein Level Body Fluid Pericardial Fluid (11/30/2017 2:10 PM EDT) Protein, Fluid 5.3 gm/dL [facility] Comment: There is no reference range available for the specimen type submitted. For determination of transudative vs. exudative pleural effusions: Transudates: Pleural Total Protein/Serum Total Protein <0.5 g/dL. Exudates: Pleural Total Protein/Serum Total Protein >0.5 g/dL. Prot, Fld Type Pericardial [facility] Pericardial fluid specimen (specimen) 11/30/2017 2:10 PM EDT 11/30/2017 3:28 PM EDT Narrative Resulting Agency Comment Spec In Lab Pablo Govea MD BODY FLUIDS AND STO OLS ORDERABLES Performing Organization Address [facility] Co de Phone Number [facility] [place] [address] * Glucose Level Body Fluid Pericardial Fluid (11/30/2017 2:10 PM EDT) Glucose, Fluid 117 mg/dL [facility] Comment: No reference range is available for the specimen type submitted. ??The performance of this assay for the submitted type has not been validated and results should be interpreted accordingly and with regard to the patient's clinical status. Gluc, Fld Type Pericardial [facility] Pericardial fluid specimen (specimen) 11/30/2017 2:10 PM EDT 11/30/2017 3:28 PM EDT Narrative Resulting Agency Comment Spec In Lab Pablo Govea MD BODY FLUIDS AND STO OLS ORDERABLES Performing Organization Address [facility] Co de Phone Number [facility] [place] [address] * Cell Count Body Fluid Pericardial Fluid (11/30/2017 2:10 PM EDT) Body Fluid Source Pericardial [facility] Color, Fld Red [facility] Appearance, Fld Cloudy [facility] WBC Count, Fld 2,089 /mcl [facility] Comment: Guideline listed below apply to all body fluids. Differentials on BAL specimens are performed by the Cytology lab section. When Body Fluid WBC count is greater than Zero, a smear is made and scanned. All scan information is correlated with numeric results prior to being released to patients chart. Polymorphonuclear cells BF % 1 % [facility] Comment: Polymorphonuclear cell percent and absolute values may contain Neutrophils, Eosinophils, and Basophils. Body fluid smear will be scanned manually for concordance. Mononuclear cells BF % 99 % [facility] Comment: Mononuclear cell percent and absolute values may contain Lymphocytes and Monocytes. Body fluid smear will be scanned manually for concordance. Polymorphonuclear cells BF ABS 22 /[facility] Comment: Polymorphonuclear cell percent and absolute values may contain Neutrophils, Eosinophils, and Basophils. Body fluid smear will be scanned manually for concordance. Mononuclear cells BF ABS 2,067 /[facility] Comment: Mononuclear cell percent and absolute values may contain Lymphocytes and Monocytes. Body fluid smear will be scanned manually for concordance. Pericardial fluid specimen (specimen) 11/30/2017 2:10 PM EDT 11/30/2017 3:28 PM EDT Narrative Resulting Agency Comment Spec In Lab Pablo Govea MD BODY FLUIDS AND STO OLS ORDERABLES [facility] [place] [address] * ABORH Recheck Status (11/30/2017 10:20 AM EDT) ABORH Type Recheck Completed [facility] Blood specimen (specimen) 11/30/2017 10:20 AM EDT 11/30/2017 10:31 AM EDT Narrative Resulting Agency Comment Spec In Lab [facility] LAB O RDERABLES Performing Organization Address City/[facility]/ZIP Co de Phone Number [facility] [place] [address] * Antibody screen (11/30/2017 10:20 AM EDT) Ab Screen Interp Negative [facility] Expires at [id number] on: 12/03/2017 [facility] Blood specimen (specimen) 11/30/2017 10:20 AM EDT 11/30/2017 10:31 AM EDT Narrative Resulting Agency Comment Spec In Lab [facility] LAB O RDERABLES Performing Organization Address City/[facility]/ZIP Co de Phone Number [facility] [place] [address] * ABO/Rh Typing (11/30/2017 10:20 AM EDT) ABORH Type B Pos [facility] Blood specimen (specimen) 11/30/2017 10:20 AM EDT 11/30/2017 10:31 AM EDT Narrative Resulting Agency Comment Spec In Lab [facility] LAB O RDERABLES Performing Organization Address City/[facility]/ZIP Co de Phone Number [facility] [place] [address] * (ABNORMAL) Differential, Automated (11/30/2017 10:20 AM EDT) Neutrophil % 73.4 % [facility] Neutrophil Absolute 4.30 1.70 - 6.10 x10(3)/mc L [facility] Lymph % 13.3 % [facility] Lymphocytes Abs 0.8(L) 0.9 - 3.2 x10(3)/mc L [facility] Monocyte % 9.2 % [facility] Monocyte Abs 0.5 0.3 - 0.9 x10(3)/mc L [facility] Eos % 3.1 % [facility] Eosinophils Abs 0.2 0.0 - 0.4 x10(3)/mc L [facility] Basophil % 0.5 % [facility] Baso Absolute 0.0 0.0 - 0.1 x10(3)/mc L [facility] Immature Gran % 0.50 % [facility] Comment: Immature granulocytes(IG's)percentage and absolute count will include metamyelocytes, myelocytes, and promyelocytes. Blood smears from CBCs yielding IG's will be scanned manually for concordance. If this scan disagrees with the automated IG or if promyelocytes are noted, a manual differential will be performed. Immature Gran Absolute 0.03 0.00 - 0.04 x10(3)/ L [facility] Blood specimen (specimen) 11/30/2017 10:20 AM EDT 11/30/2017 10:31 AM EDT Narrative Resulting Agency Comment Spec In Lab [facility] HEMATOLOGY ORDER KARENA [facility] [place] [address] * (ABNORMAL) Hemogram (11/30/2017 10:20 AM EDT) White Blood Cell 5.9 4.0 - 9.5 x10(3)/ L [facility] Red Blood Cell 4.43(L) 4.58 - 5.54 x10(6)/mc L [facility] Hemoglobin 11.4(L) 13.7 - 16.5 gm/dL [facility] Hematocrit 36.8(L) 40.5 - 48.5 % [facility] Mean Cell Volume 83.1 82.9 - 93.1 fL [facility] Mean Cell Hemoglobin 25.7(L) 27.5 - 32.1 pg [facility] Mean Cell Hemoglobin Concentration 31.0(L) 32.0 - 35.7 gm/dL [facility] Platelet 179 145 - 357 x10(3)/ L [facility] RDW Standard Deviation 41.1 36.0 - 45.0 fL [facility] RDW coefficient of variation 13.6 11.4 - 13.8 % [facility] Mean Platelet Volume 9.5 7.6 - 12.9 fL [facility] NRBC% auto 0.0 % [facility] NRBC Absolute 0.000 0.000 - 0.000 x10(3)/mc L [facility] Blood specimen (specimen) 11/30/2017 10:20 AM EDT 11/30/2017 10:31 AM EDT Narrative Resulting Agency Comment Spec In Lab [facility] HEMATOLOGY ORDER KARENA [facility] [place] [address] * (ABNORMAL) Basic Metabolic Panel (non-fasting) (11/30/2017 10:20 AM EDT) Glucose 128 65 - 199 mg/dL [facility] Comment:Diabetes: >=200 mg/d L plus symptoms Blood Urea Nitrogen 17 10 - 20 mg/dL [facility] Creatinine 1.29 0.80 - 1.50 mg/dL [facility] Sodium 142 135 - 145 mmol/L [facility] Potassium 3.7 3.5 - 5.0 mmol/L [facility] Comment: Please note: ??Patients with WBC >100,000 may have falsely elevated Potassium levels. ??For accurate Potassium quantification in these patients send serum separator tube (gold top) for subsequent determinations. ??Contact the Clinical Chemistry Laboratory if there are any questions. Chloride 103 98 - 107 mmol/L [facility] Carbon Dioxide 26 22 - 31 mmol/L [facility] Anion Gap 13 5 - 15 mmol/L [facility] Calcium 10.0 8.5 - 10.5 mg/dL [facility] Est Glomerular Filtration Rate 54(L) >=60 [facility] Comment: The reported eGFR should be multiplied by 1.2 for patients. The MDRD is not an appropriate measure of renal function for patients with body mass extremes or in patients with acute kidney failure. http://[employer]/nkdep http://[employer]/[facility]kf Blood specimen (specimen) 11/30/2017 10:20 AM EDT 11/30/2017 10:31 AM EDT Narrative Resulting Agency Comment Spec In Lab Pablo Govea MD CHEMISTRY ORDERABLE S [facility] [place] [address] documented in this encounter Visit Diagnoses Diagnosis [...] mcg/mL multi-dose injection ONCE PRN, Starting on Mon11/30/17 at 1321, Until Kimberly 11/30/17 at 1413, Cath (Intra-Procedure), Routine Given 11/30/2017 1:21 PM EDT 25 mcg lidocaine (XYLOCAINE) 10 mg/mL (1 %) injection ONCE PRN, Starting on Mon11/30/17 at 1235, Until Kimberly 11/30/17 at 1413, [...] mg/mL multi-dose injection ONCE PRN, Starting on Mon11/30/17 at 1321, Until Mon11/30/17 at 1413, Cath (Intra-Procedure), Routine Given 11/30/2017 [...] Kimberly 11/30/17 at 1630, Until Discontinued, Routine 1637 (Given - Provider: Sherlyn Tamayo RN)2353 (Given - Provider: Alley Martinez, LENY) 0950 (Given - Provider: Mara Moon RN) predniSONE (DELTASONE) tablet 20 mg 20 mg, Oral, DAILY, First dose on Mon12/01/17 at 0900, Until Discontinued, Routine 0900 (Given - Provid er: Mara Moon RN) predniSONE (DELTASONE) tablet 40 mg (COMPLETED) 40 mg, Oral, ONCE, 1 dose, On Kimberly 11/30/17 at 1630, Routine 1641 (Given - Provider: [...] 11/30/17 at 1600, Until 12/01/17 at 1637, Pain, Maximum dose of acetaminophen [...] first. documented in this encounter Care Teams Librarian Assistant Relationship Specialty Start Date End Date Devorah Epstein MD Frank CROSS [address] [place] [id number] PCP - General Family Medicine 09/01/17 documented as of this encounter
--- OUTSIDE RECORDS SUMMARY | 2024-04-29 19:14 | XMS_ITS | Encounter Summary ---
[facility] Organization [facility] [place] [address] Care Team Providers Care Internal Medicine Nurse Practitioner Name Role Phone Devorah Epstein MD Primary Care Provider [phone] Reason for Referral * Diagnostic Test (Emergency) - Closed Specialty Diagnoses / Procedures Referred By Binh taylor Referred To Contact Cardiology Diagnoses Pericardial effusion Procedures Echocardiogram Transthoracic(Leb) David Green PA [facility] [place] [address] [facility] [place] [address] Referral ID Status Reason Start Date Expiration Date V isits Requested Visits Authorized [id number] Closed Specialty Service Requested 11/30/2017 11/30/2018 1 1 Reason for Visit * Auth/Cert Specialty Diagnoses / Procedures Referred By Binh taylor Referred To Contact Diagnoses Pericardial effusion Pericardial effusion [I31.3] n/a Procedures CARDIAC CATHETERIZATION Referral ID Status Reason Start Date Expiration Date Visits Re quested Visits Authorized [id number] 1 1 Encounter Details Date Type Department Care Team (Late st Contact Info) Description 11/30/2017 8:15 AM EDT Office Visit [place] [address] David Green PA [facility] [place] [address] Pericardial effusion (Primary Dx) Social History Tobacco [...] AM EDT Cardiac Surgery Clinic Note: ID: [id number] Cardiac Surgery Attending: Dr. Govea S: Patient [...] AM. - Will obtain labs, T&S. - medical lab specialist for Pericardial Drain. - Admit to Cardiac Surgery. DW Attending Surgeon. Signed: CASSI NICHOLS [facility] Section of Cardiac Surgery 11/30/2017 documented in this encounter Plan of Treatment Upcoming Encounters Date Type Department Care Team (Late st Contact Info) Description 06/26/2024 10:00 AM EST Hospital Encounter Non-[place] [address] Arrived documented as of this encounter Procedures Procedure Name Priority Date/Time Associated Diagnosis Comments CARDIAC CATHETERIZATION Routine 12/01/19 18 2:25 PM EDT Pericardial effusion ECHO COMPLETE STAT 11/30/2017 9:50 AM EDT Pericardial effusion documented in this encounter Results * CARDIAC CATHETERIZATION (11/30/2017 2:25 PM EDT) Anatomical Region Laterality Modality Other Narrative 12/05/2017 10:14 AM EDT ?[facility] ? Cardiac Catheterization/Intervention Report ? Patient Name: Keegan Cabrera Ivan ? Procedure Date: 11/30/2017 ? A #: [id number] ? Primary Physician: Ansley, Mario V ? Case #: [id number] ? File Name: [id number] ? Catheterization Order Number: [id number] ? [facility] ? Final Report [place], [place] ? Patient Name: ? Peter P. Chernovetz ?ID#: ?[id number] ? : ?1940 ? Procedure Date: ? [...] Procedure Note Mario Panchal MD - 01/22/2018 [facility] Cardiac Catheterization/Intervention Report Patient Name: Keegan Cabrera Procedure Date: 11/30/2017 A #: [id number] Primary Physician: Mario Panchal V Case #: [id number] File Name: [id number] Catheterization Order Number: [id number] [facility] FinalReport [place], [place] Patient Name: Keegan Cabrera ID#:[id number] :1940 Procedure Date: November 30, 2017 Case [...] EDT) Glucose 128 65 - 199 mg/dL [facility] Comment:Diabetes: >=200 mg/d L plus symptoms Blood Urea Nitrogen 17 10 - 20 mg/dL [facility] Creatinine 1.29 0.80 - 1.50 mg/dL [facility] Sodium 142 135 - 145 mmol/L [facility] Potassium 3.7 3.5 - 5.0 mmol/L [facility] Comment: Please note: ??Patients with WBC >100,000 may have falsely elevated Potassium levels. ??For accurate Potassium quantification in these patients send serum separator tube (gold top) for subsequent determinations. ??Contact the Clinical Chemistry Laboratory if there are any questions. Chloride 103 98 - 107 mmol/L [facility] Carbon Dioxide 26 22 - 31 mmol/L [facility] Anion Gap 13 5 - 15 mmol/L [facility] Calcium 10.0 8.5 - 10.5 mg/dL [facility] Est Glomerular Filtration Rate 54(L) >=60 [facility] Comment: The reported eGFR should be multiplied by 1.2 for patients. The MDRD is not an appropriate measure of renal function for patients with body mass extremes or in patients with acute kidney failure. http://Wummelkiste/DHnkdep http://Wummelkiste/DHMCnkf Blood specimen (specimen) 11/30/2017 10:20 AM EDT 11/30/2017 10:31 AM EDT Narrative Resulting Agency Comment Spec In Lab Pablo Govea MD CHEMISTRY ORDERABLE S [facility] [place] [address] * ECHO COMPLETE (11/30/2017 9:50 AM EDT) Anatomical Region Laterality Modality Other 11/30/2017 Narrative 11/30/2017 10:33 AM EDT Procedure: ?Transthoracic Echocardiogram Patient: ?DEBORAH Thomas ?(Age): 1940(77y) Med Rec#: ? [id number] ?Sex: ?M ? Site Loc: ? [facility] ?Ht / Wt: ??183(cm)/131(kg) Pt. Loc: ?Adult Floor ? BSA: ?2.49 Study Date: ?? 11/30/2017 ?Pt. Type: Outpatient Tape: ? Referring: CHENTORYCKIDANIELJ Reading: Grant Rubin ([id number]) Graphic Technician: Grant Hoffman Graphic Technician: Shai Louann Diagnosis: *ICD-10-PCS Pericardial effusion (noninflammatory) [...] 11/30/2017 10:32:38 Images reviewed and interpretation verified [facility] Cardiac Ultrasound Laboratory Procedure Note Grant Rubin MD - 11/30/2017 Procedure: Transthoracic Echocardiogram Patient: DEBORAH Thomas (Age): 1940(77y) Med Rec#: [id number] Sex: M Site Loc: [facility] Ht / Wt: 183(cm)/131(kg) Pt. Loc: Adult Floor BSA: 2.49 Study Date: 11/30/2017 Pt. Type: Outpatient Tape: Referring: [facility] Reading: Grant Rubin ([id number]) Graphic Technician: Grant Hoffman Graphic Technician: Louann Gibbons Diagnosis: *ICD-10-PCS Pericardial effusion (noninflammatory) [...] 11/30/2017 10:32:38 Images reviewed and interpretation verified [facility] Cardiac [facility]trasound Laboratory Pablo Govea MD ECHO ORDERABLES documented in this encounter Visit Diagnoses Diagnosis Pericardial effusion- Primary Unspecified disease of pericardium Pericardial effusion Unspecified disease of pericardium documented in this encounter Care Teams Internal Medicine Nurse Practitioner Relationship Specialty Start Date End Date Devorah Epstein MD [address] [place] [address] PCP - General Family Medicine 09/01/17 documented as of this encounter
--- OUTSIDE RECORDS SUMMARY | 2024-04-29 19:14 | XMS_ITS | Encounter Summary ---
Author Organization [facility] [place] [address] Care Team Providers Care Mushroom Farmer Name Role Phone Devorah Epstein MD Primary Care Provider [phone] Encounter Details Date Type Department Care Team (Latest Contact Info) Description 11/29/2017 - 11/29/2017 12:04 AM EDT Hospital Encounter Radiology Library at [facility] [place] [address] Pablo Sue MD [facility] [place] [address] Discharge Disposition: Home Social History Tobacco Use [...] st Contact Info) Description 06/26/2024 10:00 AM [facility] Hospital Encounter Non-Invasive [place] [address] Arrived documented as of this encounter Procedures Procedure Name Priority Date/Time Associated Diagnosis Comments FILM LIBRARY STORAGE ONLY ULTRASOUND STUDY Routine 11/29/2017 12:00 AM EDT documented in this encounter Results * Film Library- Storage Only Ultrasound Study (11/29/2017 12:00 AM EDT) Narrative [facility] - 11/29/2017 4:21 PM EDT This exam is for storage only and is auto-finalizing. Pablo Sue MD IMG FILM LIBRARY OR DERABLES [place], [place] documented in this encounter Visit Diagnoses Not on filedocumented in this encounter Care Teams Mushroom Farmer Relationship Specialty Start Date End Date Devorah Epstein MD [address] [place] [address] PCP - General Family Medicine 09/01/17 documented as of this encounter
--- OUTSIDE RECORDS SUMMARY | 2024-04-29 19:14 | XMS_ITS | Encounter Summary ---
Author Organization [facility] [place] [address] Care Team Providers Care Checker Product Design Name Role Phone Devorah Epstein MD Primary Care Provider [phone] Encounter Details Date Type Department Care Team (Latest Contact Info) Description 11/29/2017 12:10 AM EDT - 11/29/2017 11:59 PM EDT Hospital Encounter Radiology Library at [facility] [place] [place] [address] Pablo Sue MD [facility] [place] [address] Discharge Disposition: Home Social History Tobacco Use [...] st Contact Info) Description 06/26/2024 10:00 AM [facility] Hospital Encounter Non[place] [address] Arrived documented as of this encounter Procedures Procedure Name Priority Date/Time Associated Diagnosis Comments FILM LIBRARY STORAGE ONLY DX CHEST Routine 11/29/2017 12:10 AM EDT documented in this encounter Results * Film Library- Storage Only DX Chest (11/29/2017 12:10 AM EDT) Narrative [facility] - 11/29/2017 4:22 PM EDT This exam is for storage only and is auto-finalizing. Pablo Sue MD IMG FILM LIBRARY OR DERABLES [place], [place] documented in this encounter Visit Diagnoses Not on filedocumented in this encounter Care Teams Checker Product Design Relationship Specialty Start Date End Date Devorah Epstein MD [address] [place] [address] PCP - General Family Medicine 09/01/17 documented as of this encounter
--- OUTSIDE RECORDS SUMMARY | 2024-04-29 19:14 | XMS_ITS | Encounter Summary ---
Author Organization [facility] [place] [address] Care Team Providers Care Mc Kay Machine Operator Name Role Phone Devorah Epstein MD Primary Care Provider [phone] Encounter Details Date Type Department Care Team (Latest Contact Info) Description 11/29/2017 12:05 AM EDT - 11/29/2017 12:09 AM EDT Hospital Encounter Radiology Library at [facility] [place] [address] Pablo Sue MD [facility] [place] [address] Discharge Disposition: Home Social History Tobacco Use [...] st Contact Info) Description 06/26/2024 10:00 AM [facility] Hospital Encounter Non-[place] [address] Arrived documented as of this encounter Procedures Procedure Name Priority Date/Time Associated Diagnosis Comments FILM LIBRARY STORAGE ONLY CT ABDOMEN Routine 11/29/2017 12:05 AM EDT documented in this encounter Results * Film Library- Storage Only CT Abdomen (11/29/2017 12:05 AM EDT) Narrative [facility] - 11/29/2017 4:21 PM EDT This exam is for storage only and is auto-finalizing. Pablo Sue MD IMG FILM LIBRARY OR DERABLES [place], [place] documented in this encounter Visit Diagnoses Not on filedocumented in this encounter Care Teams Mc Kay Machine Operator Relationship Specialty Start Date End Date Devorah Epstein MD [address] [place] [address] PCP - General Family Medicine 09/01/17 documented as of this encounter
--- OUTSIDE RECORDS SUMMARY | 2024-04-29 19:14 | XMS_ITS | Encounter Summary ---
[place] [address] Care Team Providers Care Can Cleaner Name Role Phone Devorah Epstein MD Primary Care Provider [phone] Reason for Visit * Auth/Cert Specialty Diagnoses / Procedures Referred By Binh taylor Referred To Contact Diagnoses Pericardial effusion Pericardial effusion [I31.3] n/a Procedures CARDIAC CATHETERIZATION Referral ID Status Reason Start Date Expiration Date Visits Re quested Visits Authorized [id number] 1 1 Encounter Details Date Type Department Care Team (Latest Contact Info) Description 11/30/2017 9:00 AM EDT - 11/30/2017 10:00 AM EDT Hospital Encounter [place] [phone] Pablo Govea MD Discharge Disposition: Home Social History Tobacco Use [...] AM EST Hospital Encounter Non-[place] [address] Arrived documented as of this encounter Procedures Procedure Name Priority Date/Time Associated Diagnosis Comments ECHO COMPLETE STAT 11/30/2017 9:50 AM EDT Pericardial effusion documented in this encounter Results * ECHO COMPLETE (11/30/2017 9:50 AM EDT) Anatomical Region Laterality Modality Other 11/30/2017 Narrative 11/30/2017 10:33 AM EDT Procedure: ?Transthoracic Echocardiogram Patient: ?KENDRICK Thomas ?(Age): 1940(77y) Med Rec#: ? [id number] ?Sex: ?M ? Site Loc: ? [facility] ?Ht / Wt: ??183(cm)/131(kg) Pt. Loc: ?Adult Floor ? BSA: ?2.49 Study Date: ?? 11/30/2017 ?Pt. Type: Outpatient Tape: ? Referring: CHENTORYCKIDANIELJ Reading: Grant Rubin ([id number]) Newsroom Intern: Grant Hoffman Newsroom Intern: Louann Gibbons Diagnosis: *ICD-10-PCS Pericardial effusion (noninflammatory) [...] 11/30/2017 10:32:38 Images reviewed and interpretation verified [facility] Cardiac Ultrasound Laboratory Procedure Note Grant Rubin MD - 11/30/2017 Procedure: Transthoracic Echocardiogram Patient: KENDRICK Thomas DOB(Age): 1940(77y) Med Rec#: [id number] Sex: M Site Loc: [facility] Ht / Wt: 183(cm)/131(kg) Pt. Loc: Adult Floor BSA: 2.49 Study Date: 11/30/2017 Pt. Type: Outpatient Tape: Referring: VAIBHAVJ Reading: Grant Rubin ([id number]) Newsroom Intern: Grant Hoffman Newsroom Intern: Louann Gibbons Diagnosis: *ICD-10-PCS Pericardial effusion (noninflammatory) [...] 11/30/2017 10:32:38 Images reviewed and interpretation verified [facility] Cardiac Ultrasound Laboratory Pablo Govea MD ECHO ORDERABLES documented in this encounter Visit Diagnoses Not on filedocumented in this encounter Care Teams Can Cleaner Relationship Specialty Start Date End Date Devorah Epstein MD [address] [place] [address] PCP - General Family Medicine 09/01/17 documented as of this encounter
--- OUTSIDE RECORDS SUMMARY | 2024-04-29 19:14 | XMS_ITS | Encounter Summary ---
Author Organization [facility] [place] [address] Care Team Providers Care Director Home Health Name Role Phone Devorah Epstein MD Primary Care Provider [phone] Encounter Details Date Type Department Care Team (Latest Contact Info) Description 10/17/2017 1:19 PM EDT - 10/17/2017 11:59 PM EDT Hospital Encounter XRay at [address] [place] [address] Flower Smith APRN [facility] [place] [address] S/P CABG x 2 Discharge Disposition: Home [...] AM EST Hospital Encounter Non-Invasive [place] [address] Arrived documented as of this encounter Procedures [...] [facility], at10/17/2017 3:01 PM Flower Sarah BUSBY IMG DX ORDERABLES documented in this encounter Visit Diagnoses Diagnosis S/P CABG x 2 Postsurgical aortocoronary bypass status documented in this encounter Care Teams Director Home Health Relationship Specialty Start Date End Date Devorah Epstein MD [facility] [address] [place] [address] PCP - General Family Medicine 09/01/17 documented as of this encounter
--- OUTSIDE RECORDS SUMMARY | 2024-04-29 19:14 | XMS_ITS | Encounter Summary ---
Author Organization [facility] Address [facility] [place] [address] Care Team Providers Care Tibco Developer Name Role Phone Devorah Epstein MD Primary Care Provider [phone] Reason for Referral * Consultation (Routine) - Specialty Diagnoses / Procedures Referred By Contact Referred To Contact Cardiac Rehabilitation Diagnoses S/P CABG x 2 Pablo Govea MD [facility] [place] [address] Cardiac Rehab, [facility] [address] [place] [address] Referral ID Status Reason Start Date Expiration Date V isits Requested Visits Authorized [id number] Consult, Test & Treat 09/15/2017 03/14/2018 36 36 Reason for Visit * Auth/Cert Specialty Diagnoses / Procedures Referred By Contac t Referred To Contact Diagnoses Atherosclerosis of [place] coronary artery of [place] heart with angina pectoris cad UNKNOWN Procedures PRO CABG, ARTERIAL, SINGLE PRO CABG, ARTERY-VEIN, SINGLE PRO ENDOSCOPY W/VIDEO-ASST VEIN HARVEST, CABG @CABG, USING ARTERIAL GRAFT;SINGLE ARTERIAL GRAFT (WRVU 33.75) @CABG, VENOUS & ARTERIAL GRAFT;SINGLE VEIN GRAFT (WRVU 3.61) ENDOSCOPIC HARVEST VEIN(S) FOR CABG (WRVU 0.31) Referral ID Status Reason Start Date Expiration Date Visits Re quested Visits Authorized [id number] 1 1 Encounter Details Date Type Department Care Team (Latest Contact Info) Description 09/11/2017 5:55 AM EDT - 09/15/2017 10:54 AM EDT Hospital Encounter Intermediate [place] [address] Pablo Govea MD Atherosclerosis of [place] coronary artery of [place] heart with angina pectoris; S/P CABG x [...] Patient Age: 77 y.o. Birthdate: 1940 Language: Sinhala Race: White Ethnicity: Not nor Admit Date: 09/11/2017 Discharge Date: 09/15/2017 Attending Physician: Pablo Govea MD Follow-up Recommendations for Providers: Please continue routine management of cardiovascular risk factors including blood pressure, lipids,glucose, etc. Please note any changes to medications. Patient to follow-up with PCP, Devorah Epstein MD, in 1-2 weeks. Patient to follow-up with Driver Wheelchair, Dr. Marie, in two weeks. Patient to follow-up with Cardiac Surgery, Dr. Pablo Govea, in ~ 4 weeks with CXR, EKG. Inpatient Provider Contact Information: [facility] Section of Cardiac Surgery [facility] [address] FAX [phone] Discharge Diagnoses (Hospital Problems) Primary Diagnoses: CAD [...] 33.75) performed by Pablo Govea MD at [facility] MAIN OR ??? PRO CABG, ARTERY-VEIN, SINGLE N/A 09/11/2017 @CABG, VENOUS & ARTERIAL GRAFT;SINGLE VEIN GRAFT (WRVU 3.61) performed by Pablo Govea MD at [facility] MAIN OR ??? PRO ENDOSCOPY W/VIDEO-ASST VEIN HARVEST, CABG Right 09/11/2017 ENDOSCOPIC HARVEST VEIN(S) FOR CABG (WRVU 0.31) performed by Pablo Govea MD at [facility] MAIN OR Prior To Admission [...] who had a stress test done at [facility] that revealed moderate risk for a cardiac [...] Hospital Course: Keegan Cabrera was admitted to [facility] on 09/11/2017via the Same Day Program. [...] Pablo Govea and/or the Cardiac Surgery Physician Window Cutter Team may be reached at . Weight: [...] Dr. Pablo Swenson. You may use a [place] or treadmill but avoid any pulling [...] friends, go to a movie, go to uatsdin, etc. Heavy activities: No hunting, skiing, jogging, [...] should resume a low fat, low cholesterol, [place] Heart [employer] Diet Driving: No driving until [...] in 1-2 weeks. Patient to follow-up with Driver Wheelchair, Dr. Marie, in two weeks. Patient to follow-up with Cardiac Surgery, Dr. Pablo Govea, in ~ 4 weeks with CXR, EKG. Cardiac Rehabilitation: Keegan Thomas Sabrinarosemarie was seen today regarding participation in the outpatientPhase 2 Cardiac Rehabilitation at [facility] . The patient agrees to a referral to this program. The referral will be sent at discharge and the patient should be contacted by the Program within 1- 2 weeks from discharge. Future Appointments and Orders Future Orders Complete By Expires XR Chest PA & Lateral (Generic) [[id number] Custom] 09/16/2017 03/18/2018 Process Instructions: Scheduling Instructions: Questions: Where will study be performed?: [facility] Portable exam?: Reason for exam and clinical history: s/p cabg Other pertinent information: Stat read required?: Date of injury if applicable: Requested Time: EKG 12 Lead [EKG1 Custom] As directed Process Instructions: Scheduling Instructions: Questions: Which [facility] location will this be performed?: [facility] Is a rhythm strip needed?: No If EKG Reason is Pre-op Evaluation, indicate diagnosis for surgery.: Referral to Cardiac Rehab [RLP494 Custom] As directed Process Instructions: If no progress note charted, please enter Clinical details in comments. Scheduling Instructions: Questions: My question or request is: s/p CABG. Cardiac rehab at [facility]. Referral to Home Health - at DISCHARGE [DNS7698 CPT(R)] As directed Process Instructions: Scheduling Instructions: Comments: DOCUMENTATION FOR VNA SERVICES (INCLUDING THOSE PATIENTS WITH MEDICARE COVERAGE REQUIRING HOME VNA SERVICES AND/OR HOSPICE SERVICES) PATIENT'S LOCATION: Keegan Cabrera [address] [place] [address] [id number] [phone] (home) Telephone Information: Aircraft Maintenance Supervisor's Name: self In discussion with the attending physician, it is certified that this patient is under their care and that they, or a Nurse Practitioner, or Physician Window Cutter who is working directly with them, hada [...] for services as follows: HOME HEALTH AGENCY: [facility]. PHONE: [phone] FAX: [phone] RN orders: Cardiopulmonary assessment, incisional assessment, assess [...] issues please call the Cardiac SurgeryOffice at [phone] FOR MEDICARE ONLY: (please delete this section [...] OR AFTER 09/21/17 Signed: VIKASH SMITH APRN [facility] Section of Cardiac Surgery [facility] [address] FAX [phone] Date: 09/15/2017 CC: MD Lucian Henry Dana C, MD [address] [place] [address] documented in this encounter Discharge Instructions * [...] Pablo Govea and/or the Cardiac Surgery Physician Window Cutter Team may be reached at . ?? [...] Dr. Pablo Swenson. You may use a [place] Track or treadmill but avoid any pulling [...] friends, go to a movie, go to uatsdin, etc. ?? Heavy activities: No hunting, skiing, [...] should resume a low fat, low cholesterol, [place] Heart [employer] Diet ?? Driving: No driving [...] 1-2 weeks. ?? Patient to follow-up with Driver Wheelchair, Dr. Marie, in two weeks. ?? Patient to follow-up with Cardiac Surgery, Dr. Pablo Govea, in ~ 4 weeks with CXR, EKG. ?? Cardiac Rehabilitation: Keegan Cabrera??was seen today regarding participation in the outpatient Phase [address] [facility]??Hospital . ?? The patient agrees to [...] sebastian 3-4x/day with FWW CARLOS Jackman Pager: [phone] Inpatient Physical Therapy SPTA observed while treating patient and POC and Rx discussed prior to Rx. Joan Garza PTA Pager: [phone] 09/15/17 0935 Rehab Evaluation Document Type therapy note (daily [...] Assessment/Treatment (Group);Transfer Assessment/Treatment (Group) Bed Mobility Assessment/Treatment Mihnfp-is-Ouz [place] (Bed Mobility) independent Avy-ye-Jhlwsq [place] (Bed Mobility) independent Comment (Bed Mobility) HOB elevated, pt has bed features at home Transfer Assessment/Treatment [place] (Sit-Stand Transfers) independent [place] (Stand-Sit Transfers) independent Pjj-Babau-Cau Assistive Device (Transfers) rolling walker Comment (Transfers) no LOB, up from recliner and EOB Gait Assessment/Treatment [place] (Gait) conditional independence Assistive Device (Gait) rolling walker Distance in Feet (Gait) 160 Gait Pattern Analysis swing-through gait Deviations (Gait) step length decreased Comment (Gait) decreased gait speed due to R knee discomfort Stairs Assessment/Treatment Number of Stairs (Stairs) 1 Handrail Location (Stairs) left side (ascending) [place] (Stairs) supervision required Technique (Stairs) fkry-fm-ucsx (ascending);zikk-jc-myfo (descending) Comment (Stairs) no LOB, good control Plan of Care Review Plan Of Care Reviewed With patient;family Progress progress toward functional goals as expected Bed Mobility Goal Bed Mobility Goal, Date Established 09/13/17 Bed Mobility Goal, Time to Achieve 5 days Bed Mobility Goal, Activity Type supine to sit/sit to supine Bed Mobility Goal, [place] Level independent Bed Mobility Goal, Outcome Achieved goal met Gait Training Goal Gait Training Goal, Date Established 09/13/17 Gait Training Goal, Time to Achieve 5 days Gait Training Goal, [place] Level conditional independence Gait Training Goal, Assist Device (LRD) Gait Training Goal, Distance to Achieve 300ft Gait Training Goal, Additional Goal Pt up and down 1 step without rail and supervision Gait Training Goal, Outcome goal partially met Transfer Training Goal Transfer Training Goal, Date Established 09/13/17 Transfer Training Goal, Time to Achieve 5 days Transfer Training Goal, Activity Type cqd-tq-oddks/ehcwc-mj-bua;wdb-rf-bupmy/yvgvo-an-xql Transfer Train Goal, [place] Level conditional independence Transfer Training Goal, Assist [...] Hood RN - 09/14/2017 1:47 PM EDT UPPER LINING CEMENTER Vikash notified, pt had a 10 beat run of Vtach, asymptomatic, VSS. Magnesium given, will continue to monitor. * Vikash Smith, QI - 09/14/2017 9:08 AM EDT Cardiac Surgery Progress Note: ID: [id number] POD #3, s/p CABG x 2. Pmhx: [...] Surgeon on rounds. VIKASH SMITH APRN Date: 09/14/2017 * Vaishali Escobar RN - 09/14/2017 8:24 AM EDT The patient/marketing representative has been provided a list of Home Health Agencies/DME vendors which servetheir preferred geographic area. A letter describing our affiliations was reviewed with them and they were educated about their right to choose where referrals are placed. Patient requests referral to [facility]. PHONE: [phone] FAX: [phone] Expected date of discharge: 09/15/17 Referral routed to the District Loss Prevention Manager for matching with agency/vendor and to provide [...] CPG GOAL OUTCOME EVALUATION: On-going * Vikash Smith APRN - 09/13/2017 8:29 AM EDT Cardiac Surgery Progress Note: ID: [id number] POD #2, s/p CABG x 2. Pmhx: [...] : urine clear yellow Incisions:sternotomy dressing CDI Tubes/Lines/Drains:PW, [place] LABS: Recent Labs 09/12/17 0425 09/11/17 1700 [...] 2. Pathway. Hematuria has resolved. Will d/c omer today, d/c pw. Increase bb to 25 bid for run of atach. Pt has first degree of 0.24, similar to first degree preop. Neuro:routine neuro exams, scheduled APAP, oxycodone prn CV: metoprolol 25mg PO BID, nightly statin Resp:2L NC, wean as tolerated, CPAP at night, pulse oximetry, hourly IS GI: ADAT daily protonix, RBOs :OMER D/C Renal: replete K+ per protocol ID:intra-op antibiotics COMPLETE Heme:daily ASA Endo: IDA Dispo:[facility] Attending Surgeon on rounds. VIKASH SMITH, PRESALES ENGINEER Date: 09/13/2017 * Mona Nix RCP - 09/13/2017 5:09 AM EDT Pt compliant with home NIV overnight. Will continue to monitor pt. * Analia Shannon APRN - 09/12/2017 9:42 AM EDT Cardiac Surgery Progress Note: ID: [id number] POD #1, s/p CABG x 2. Pmhx: [...] Surgeon on rounds. Signed: Analia Shannon APRN [facility] Section of Cardiac Surgery Date: 09/12/2017 * Ju Witt, RECEIVING TANK OPERATOR - 09/11/2017 12:45 PM EDT AMV Protocol: [...] who had a stress test done at [facility] that revealed moderate risk for a cardiac [...] there is no significant disease read bythe thread winder automatic. ?? Impression 77-year-old gentleman who is a [...] 30 minute visit 20 minutes were spent budf-km-gskq discussing the risks and benefits of CABG surgery ? * Pablo Govea MD - 09/11/2017 7:04 AM EDT This is a patient of Dr. Marie that we are seeing for consideration of CABG surgery. ?? This is a 77-year-old male who had been having symptoms of dyspnea on exertion who had a stress test done at [facility] that revealed moderate risk for a cardiac [...] there is no significant disease read bythe thread winder automatic. ?? Impression 77-year-old gentleman who is a [...] 30 minute visit 20 minutes were spent ycpi-fz-ruad discussing the risks and benefits of CABG [...] Outcome: Ongoing (Interventions Implemented as Appropriate) 09/13/17 9661 Coping/Psychosocial Plan Of Care Reviewed With patient [...] baseline level of independence. 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 Pt would benefit from ongoing physical therapy interventions. Staff Mobility Recommendations Ambulate 4x/daily with nursing, 1 assist, rolling walker GAVI ABREU, PT Pager: [phone] Inpatient Physical Therapy 09/13/17 1035 Rehab Evaluation [...] threshold step to enter. 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 He [...] Gait Assessment/Treatment (Group);Transfer Assessment/Treatment (Group) Transfer Assessment/Treatment [place] (Sit-Stand Transfers) contact guard assist;verbal cues required [place] (Stand-Sit Transfers) contact guard assist Avv-Osqxe-Prl Assistive Device (Transfers) rolling walker Gait Assessment/Treatment [place] (Gait) contact guard assist Assistive Device (Gait) [...] to sit/sit to supine Bed Mobility Goal, [place] Level independent Gait Training Goal Gait Training Goal, Date Established 09/13/17 Gait Training Goal, Time to Achieve 5 days Gait Training Goal, [place] Level conditional independence Gait Training Goal, Assist Device (LRD) Gait Training Goal, Distance to Achieve 300 ft Gait Training Goal, Additional Goal Pt up and down 1 step without rail with supervision Transfer Training Goal Transfer Training Goal, Date Established 09/13/17 Transfer Training Goal, Time to Achieve 5 days Transfer Training Goal, Activity Type tpn-au-dkhmx/mtmil-rm-cod;bkh-bq-liaez/huksl-mm-wnq Transfer Train Goal, [place] Level conditional independence Transfer Training Goal, Assist [...] Problem List Diagnosis Code ??? Atherosclerosis of [place] coronary artery of [place] heart with angina pectoris I25.119 Additional personal [...] Hamlin RN - 09/13/2017 12:15 PM EDT [facility] CARD[facility]AC REHABILITATION Keegan Cabrera was seen today regarding participation in the outpatient Phase 2 Cardiac Rehabilitation at [facility] . The patient agrees to [...] of chest tightness at beginning of shift, UPPER LINING CEMENTER Shiva notified. [place] catheter draining brown/tea colored [...] Assessment Outcome: Ongoing (Interventions Implemented as Appropriate) 03/21/18 0107 Discharge Needs Assessment Concerns To Be [...] Health/Prescription Coverage: Primary Insurance: MEDICARE Secondary Insurance: [employer] [place] Prescription Coverage: yes Preferred Pharmacy: [facility] Primary Care Provider: Devorah Epstein MD [phone] Patient/Caregiver Goals of Treatment: discharge to home [...] of care planning. Vaishali Escobar RN Pager: [phone] * Plan of Care - Lenora Ibrahim [...] monitor urine output. 0630: No urine output 9090-1091. Bladder scan yield 64cc. C/o need to [...] OUTCOME SUMMARY: Post op CABGx2 arrived to [facility] at 1100. Total chest tube output 250mL. Cardiovascular: 100% AAI paced at 80 b/min, [place] rhythm is sinus jasmeet with pauses 50-70. [...] - 09/11/2017 11:01 AM EDT 09/11/2017 [facility] 1940 [id number] Preoperative Diagnosis: Coronary artery disease Stable Angina Postoperative Diagnosis: Coronary artery diseaseStable Angina Procedure: CABG times 2: ALFREDO to LAD, SVG to om. Endoscopic vein harvest Surgeon: Pablo Govea M.D. Window Cutter: ashwin flores Anesthesia: General endotracheal anesthesia Drains: [...] the medial aspect of the knee. The [facility] Institute[facility] XB7 system was used to dissect out [...] applied. The patient was transported to the [facility] on [facility]. All counts were correct. * OR Attestation - Pablo Govea MD - 09/11/2017 10:55 AM EDT Attestation: Case Date: 09/11/2017 I performed this procedure without the involvement of a resident. Pablo Govea MD 09/11/2017 * Brief Op Note - Pablo Govea MD - 09/11/2017 10:54 AM EDT Brief Operative Note Patient Name: Keegan Cabrera : [id number] MR#: [id number] Case Date: 09/11/2017 Surgeon: Surgeon(s) and Role: * Pablo Govea MD - Primary * David Green PA - Physician Window Cutter Preoperative diagnosis: cad Postoperative diagnosis: cad Procedure: [...] AM EST Hospital Encounter Non-In[place] [id number] Arrived Scheduled Orders Name Type Priority Associated [...] Comments LAB SCAN 09/18/2017 12:00 AM EDT MACHINIST FIRST CLASS SCAN 09/18/2017 12:00 AM EDT POTASSIUM Routine 09/15/2017 4:43 AM EDT XR CHEST PA AND LATERAL Routine 09/14/2017 9:08 AM EDT HEMOGRAM Routine 09/14/2017 4:15 AM EDT DIFFERENTIAL, AUTOMATED Routine 09/14/2017 4:15 AM EDT CBC (WITH DIFF) Routine 09/14/2017 4:15 AM EDT BASIC METABOLIC PANEL Routine 09/14/2017 4:15 AM EDT POCT GLUCOSE [...] Routine 09/12/2017 4:25 AM EDT CARDIAC ENZYMES (MC/CGP) Routine 09/12/2017 4:25 AM EDT CREATININE Routine [...] Routine 09/11/2017 2:27 PM EDT BLOOD GAS ARTERIAL POC Routine 09/11/2017 2:09 PM EDT POCT GLUCOSE Routine 09/11/2017 1:33 PM EDT PREPARE ALBUMIN 5% IN 250 ML Routine 09/11/2017 11:56 AM EDT BLOOD GAS ARTERIAL POC Routine 09/11/2017 11:37 AM EDT XR CHEST ONE VIEW STAT 09/11/2017 11: 35 AM EDT EKG 12-LEAD STAT 09/11/2017 11:24 AM EDT S/P CABG x 2 HEMOGRAM STAT 09/11/2017 10:15 AM EDT APTT STAT 09/11/2017 10:15 AM EDT THROMBIN TIME STAT 09/11/2017 10:15 AM EDT PROTHROMBIN TIME STAT 09/11/2017 10:1 5 AM EDT FIBRINOGEN STAT 09/11/2017 10:15 AM EDT BLOOD GAS ARTERIAL POC Routine 09/11/2017 10:13 AM EDT BLOOD GAS ARTERIAL POC Routine 09/11/2017 9:36 AM EDT HEMOGLOBIN AND HEMATOCRIT, BLOOD STAT 09/11/2017 9:30 AM EDT FIBRINOGEN STAT 09/11/2017 9:30 AM EDT PLATELET COUNT STAT 09/11/2017 9:30 AM EDT BLOOD GAS ARTERIAL POC Routine 09/11/2017 9:15 AM EDT BLOOD GAS ARTERIAL POC Routine 09/11/2017 8:12 AM EDT ENDOSCOPIC HARVEST VEIN(S) FOR CABG (WRVU 0.31) 09/11/2017 7:24 AM EDT Atherosclerosis of [place] coronary artery of [place] heart with angina pectoris @CABG, VENOUS & ARTERIAL GRAFT;SINGLE VEIN GRAFT (WRVU 3.61) 09/11/2017 7:24 AM EDT Atherosclerosis of [place] coronary artery of [place] heart with angina pectoris @CABG, USING ARTERIAL GRAFT;SINGLE ARTERIAL GRAFT (WRVU 33.75) 09/11/2017 7:24 AM EDT Atherosclerosis of [place] coronary artery of [place] heart with angina pectoris PREPARE RBC STAT [...] [facility], at10/17/2017 3:01 PM Vikash Smith PRESALES ENGINEER IMG DX ORDERABLES * SCAN DOC: LAB (09/18/2017 12:00 AM EDT) Narrative 09/18/2017 12:00 AM EDT Ordered by an unspecified provider. Scanning Provider MEDIA MGR SCAN EXT O RDR/RSLT * SCAN DOC: MACHINIST FIRST CLASS (09/18/2017 12:00 AM EDT) Anatomical Region Laterality Modality Other Narrative 09/18/2017 12:00 AM EDT Ordered by an unspecified provider. Scanning Provider MEDIA MGR SCAN EXT O RDR/RSLT * Potassium (09/15/2017 4:43 AM EDT) Potassium 3.5 3.5 - 5.0 mmol/L [facility] [...] Agency Comment Spec In Lab Analia Shannon PRESALES ENGINEER CHEMISTRY ORDERABL ES [facility] [place] [address] * XR Chest PA & Lateral (Generic) [...] Ba at 09/14/2017 10:34 AM Analia Shannon QI IMG DX ORDERABLES * (ABNORMAL) Differential, Automated (09/14/2017 4:15 AM EDT) Neutrophil % 73.5 % [facility] Neutrophil Absolute 4.13 1.70 - 6.10 x10(3)/mc L [facility] Lymph % 14.6 % [facility] Lymphocytes Abs 0.8(L) 0.9 - 3.2 x10(3)/[facility] Monocyte % 9.8 % [facility] Monocyte Abs 0.6 0.3 - 0.9 x10(3)/[facility] LAB[facility] Eos % 1.2 % [facility] Eosinophils Abs 0.1 0.0 - 0.4 x10(3)/[facility] LAB[facility] Basophil % 0.2 % [facility] Baso Absolute 0.0 0.0 - 0.1 x10(3)/[facility] LABOR[facility]ORY Immature Gran % 0.70 % [facility] Comment: Immature granulocytes(IG's)percentage and absolute count will include metamyelocytes, myelocytes, and promyelocytes. Blood smears from CBCs yielding IG's will be scanned manually for concordance. If this scan disagrees with the automated IG or if promyelocytes are noted, a manual differential will be performed. Immature Gran Absolute 0.04 0.00 - 0.04 x10(3)/ L [facility] Blood specimen (specimen) 09/14/2017 4:15 AM EDT 09/14/2017 4:21 AM EDT Narrative Resulting Agency Comment Spec In Lab Analia S Shiva BUSBY HEMATOLOGY ORDERAB LES [facility] [place] [address] * (ABNORMAL) Hemogram (09/14/2017 4:15 AM EDT) [facility] White Blood Cell 5.6 4.0 - 9.5 x10(3)/ L [facility] Red Blood Cell 3.49(L) 4.58 - 5.54 x10(6)/ L [facility] Hemoglobin 10.5(L) 13.7 - 16.5 gm/dL [facility] Hematocrit 31.2(L) 40.5 - 48.5 % [facility] Mean Cell Volume 89.4 82.9 - 93.1 fL [facility] Mean Cell Hemoglobin 30.1 27.5 - 32.1 pg [facility] Mean Cell Hemoglobin Concentration 33.7 32.0 - 35.7 gm/dL [facility] Platelet 114(L) 145 - 357 x10(3)/ L [facility] RDW Standard Deviation 43.9 36.0 - 45.0 [facility] RDW coefficient of variation 13.4 11.4 - 13.8 % [facility] Mean Platelet Volume 9.6 7.6 - 12.9 [facility] NRBC% auto 0.0 % [facility] NRBC Absolute 0.000 0.000 - 0.000 x10(3)/[facility] Blood specimen (specimen) 09/14/2017 4:15 AM EDT 09/14/2017 4:21 AM EDT Narrative Resulting Agency Comment Spec In Lab Analia Shannon APRN HEMATOLOGY ORDERAB LES [facility] [place] [address] * (ABNORMAL) Basic Metabolic Panel (non-fasting) (09/14/2017 4:15 AM EDT) [facility] Glucose 157 65 - 199 mg/dL [facility] Comment:Diabetes: >=200 mg/d L plus symptoms Blood Urea Nitrogen 27(H) 10 - 20 mg/dL [facility] Creatinine 1.19 0.80 - 1.50 mg/dL [facility] Sodium 138 135 - 145 mmol/L [facility] Potassium 3.4(L) 3.5 - 5.0 mmol/L [facility] Comment: Please note: ??Patients with WBC >100,000 may have falsely elevated Potassium levels. ??For accurate Potassium quantification in these patients send serum separator tube (gold top) for subsequent determinations. ??Contact the Clinical Chemistry Laboratory if there are any questions. Chloride 102 98 - 107 mmol/L [facility] Carbon Dioxide 25 22 - 31 mmol/L [facility] Anion Gap 11 5 - 15 mmol/L [facility] Calcium 8.6 8.5 - 10.5 mg/dL [facility] Est Glomerular Filtration Rate 59(L) >=60 [facility] Comment: The reported eGFR should be multiplied by 1.2 for patients. The MDRD is not an appropriate measure of renal function for patients with body mass extremes or in patients with acute kidney failure. http://Qualtré/DHnkdep http://Qualtré/DHMCnkf Blood specimen (specimen) 09/14/2017 4:15 AM EDT 09/14/2017 4:21 AM EDT Narrative Resulting Agency Comment Spec In Lab Analia Shannon APRN CHEMISTRY ORDERABL ES [facility] [place] [address] * POCT Glucose (09/13/2017 7:40 AM EDT) Glucose, POC 144 65 - 199 mg/dL [facility] Comment: Supplemental ranges: <140 mg/dL before meals <180 mg/dL all other times of the day Blood specimen (specimen) 09/13/2017 7:40 AM EDT 09/13/2017 7:40 AM EDT Pablo Govea MD POINT OF CARE TEST ORDERABLES Performing Organization Address [facility] Co de Phone Number [facility] [place] [address] * Potassium (09/13/2017 3:38 AM EDT) Potassium 4.1 3.5 - 5.0 mmol/L [facility] APRN CHEMISTRY ORDERABL ES Performing Organization Address [facility] Co de Phone Number [facility] [place] [address] * POCT Glucose (09/12/2017 8:54 PM EDT) Glucose, POC 141 65 - 199 mg/dL [facility] Comment: Supplemental ranges: <140 mg/dL before meals <180 mg/dL all other times of the day Blood specimen (specimen) 09/12/2017 8:54 PM EDT 09/12/2017 8:54 PM EDT Pablo Govea MD POINT OF CARE TEST ORDERABLES Performing Organization Address [facility]/ZIP Co de Phone Number [facility] [place] [address] * POCT Glucose (09/12/2017 4:15 PM EDT) Glucose, POC 139 65 - 199 mg/dL [facility] Comment: Supplemental ranges: <140 mg/dL before meals <180 mg/dL all other times of the day Blood specimen (specimen) 09/12/2017 4:15 PM EDT 09/12/2017 4:15 PM EDT Pablo Govea MD POINT OF CARE TEST ORDERABLES [facility] [place] [address] * POCT Glucose (09/12/2017 11:39 AM EDT) Glucose, POC 122 65 - 199 mg/dL [facility] Comment: Supplemental ranges: <140 mg/dL before meals <180 mg/dL all other times of the day Blood specimen (specimen) 09/12/2017 11:39 AM EDT 09/12/2017 11:39 AM EDT Pablo Govea MD POINT OF CARE TEST ORDERABLES Performing Organization Address City/[facility]/ZIP Co de Phone Number [facility] [place] [address] * POCT Glucose (09/12/2017 10:05 AM EDT) Glucose, POC 135 65 - 199 mg/dL [facility] Comment: Supplemental ranges: <140 mg/dL before meals <180 mg/dL all other times of the day Blood specimen (specimen) 09/12/2017 10:05 AM EDT 09/12/2017 10:05 AM EDT Pablo Govea MD POINT OF CARE TEST ORDERABLES [facility] [place] [address] * POCT Glucose (09/12/2017 7:47 AM EDT) Glucose, POC 143 65 - 199 mg/dL [facility] Comment: Supplemental ranges: <140 mg/dL before meals <180 mg/dL all other times of the day Blood specimen (specimen) 09/12/2017 7:47 AM EDT 09/12/2017 7:47 AM EDT Pablo Govea MD POINT OF CARE TEST ORDERABLES [facility] [place] [address] * (ABNORMAL) Differential, Automated (09/12/2017 4:25 AM EDT) Neutrophil % 82.3 % [facility] Neutrophil Absolute 4.63 1.70 - 6.10 x10(3)/mc L [facility] Lymph % 7.3 % [facility] Lymphocytes Abs 0.4(L) 0.9 - 3.2 x10(3)/ L [facility] Monocyte % 9.8 % [facility] Monocyte Abs 0.6 0.3 - 0.9 x10(3)/mc L [facility] Eos % 0.0 % [facility] Eosinophils Abs 0.0 0.0 - 0.4 x10(3)/ L [facility] Basophil % 0.2 % [facility] Baso Absolute 0.0 0.0 - 0.1 x10(3)/ L [facility] Immature Gran % 0.40 % [facility] Comment: Immature granulocytes(IG's)percentage and absolute count will include metamyelocytes, myelocytes, and promyelocytes. Blood smears from CBCs yielding IG's will be scanned manually for concordance. If this scan disagrees with the automated IG or if promyelocytes are noted, a manual differential will be performed. Immature Gran Absolute 0.02 0.00 - 0.04 x10(3)/mc L [facility] Blood specimen (specimen) 09/12/2017 4:25 AM EDT 09/12/2017 4:39 AM EDT Narrative Resulting Agency Comment Spec In Lab David YE HEMATOLOGY ORDER KARENA [facility] [place] [address] * (ABNORMAL) Hemogram (09/12/2017 4:25 AM EDT) White Blood Cell 5.6 4.0 - 9.5 x10(3)/mc L [facility] Red Blood Cell 3.56(L) 4.58 - 5.54 x10(6)/mc L [facility] Hemoglobin 10.7(L) 13.7 - 16.5 gm/dL [facility] Hematocrit 31.8(L) 40.5 - 48.5 % [facility] Mean Cell Volume 89.3 82.9 - 93.1 fL [facility] Mean Cell Hemoglobin 30.1 27.5 - 32.1 pg [facility] Mean Cell Hemoglobin Concentration 33.6 32.0 - 35.7 gm/dL [facility] Platelet 113(L) 145 - 357 x10(3)/mc L [facility] RDW Standard Deviation 44.1 36.0 - 45.0 [facility] RDW coefficient of variation 13.5 11.4 - 13.8 % [facility] Mean Platelet Volume 9.7 7.6 - 12.9 [facility] NRBC% auto 0.0 % [facility] NRBC Absolute 0.000 0.000 - 0.000 x10(3)/mc L [facility] Blood specimen (specimen) 09/12/2017 4:25 AM EDT 09/12/2017 4:39 AM EDT Narrative Resulting Agency Comment Spec In Lab David YE HEMATOLOGY ORDER KARENA [facility] [place] [address] * POCT Glucose (09/12/2017 4:25 AM EDT) Glucose, POC 155 65 - 199 mg/dL [facility] Comment: Supplemental ranges: <140 mg/dL before meals <180 mg/dL all other times of the day Blood specimen (specimen) 09/12/2017 4:25 AM EDT 09/12/2017 4:25 AM EDT Pablo Govea MD POINT OF CARE TEST ORDERABLES Performing Organization Address City/[facility]/ZIP Co de Phone Number [facility] [place] [address] * (ABNORMAL) Electrolytes panel (09/12/2017 4:25 AM EDT) [facility] Sodium 139 135 - 145 mmol/L [facility] Potassium 4.0 3.5 - 5.0 mmol/L [facility] Comment: Please note: ??Patients with WBC >100,000 may have falsely elevated Potassium levels. ??For accurate Potassium quantification in these patients send serum separator tube (gold top) for subsequent determinations. ??Contact the Clinical Chemistry Laboratory if there are any questions. Chloride 107 98 - 107 mmol/L [facility] Carbon Dioxide 21(L) 22 - 31 mmol/L [facility] Anion Gap 11 5 - 15 mmol/L [facility] Blood specimen (specimen) 09/12/2017 4:25 AM EDT 09/12/2017 4:40 AM EDT Narrative Resulting Agency Comment Spec In Lab Pablo Govea MD CHEMISTRY ORDERABLE S Performing Organization Address City/[facility]/ZIP Co de Phone Number [facility] [place] [address] * (ABNORMAL) Cardiac Enzymes (LEB/CGP) (09/12/2017 4:25 AM EDT) [facility] Troponin-T 0.13(H) 0.00 - 0.00 ng/mL [facility] Comment: The 99th percentile for Troponin T is less than 0.01 ng/mL, any detectable cTnT concentration using this assay should be considered elevated. According to the third universal definition of myocardial infarction the following criteria with a clinical presentation consistent with acute myocardial ischemia meets the diagnosis for a myocardial infarction ([place]). Detection of a rise and/or fall of cTnT, with at least one value greater than the 99th percentile (> or = 0.01) and with at least one of the following ?? Symptoms of ischemia ?? New or presumed new significant [id number] wave (ST-T) changes or new left bundle [...] additional sample may be indicated. Reference: Third [place] Definition of Myocardial Infarction. Journal of the [place] [employer] 2012;60:1581-98 Creatine Kinase 290(H) 0 - 200 unit/L [facility] Blood specimen (specimen) 09/12/2017 4:25 AM EDT 09/12/2017 4:39 AM EDT Narrative Resulting Agency Comment Spec In Lab Pablo Govea MD CHEMISTRY ORDERABLE S [facility] [place] [address] * Potassium (09/12/2017 4:25 AM EDT) Potassium 4.0 3.5 - 5.0 mmol/L [facility] MD CHEMISTRY ORDERABLE S Performing Organization Address [facility] de Phone Number [facility] [place] [address] * (ABNORMAL) Glucose, fasting (09/12/2017 4:25 AM EDT) Glucose Fasting 155(H) 65 - 99 mg/dL [facility] Comment: ?Fasting* Glucose Interpretive Criteria [...] of Diabetes Mellitus, Position Statement from the [place] [employer]. ??Diabetes Care, Volume 33, Supplement 1, Jun 2009 Blood specimen (specimen) 09/12/2017 4:25 AM EDT 09/12/2017 4:39 AM EDT Narrative Resulting Agency Comment Spec In Lab Pablo Govea MD CHEMISTRY ORDERABLE S Performing Organization Address [facility] de Phone Number [facility] [place] [address] * Creatinine (09/12/2017 4:25 AM EDT) Creatinine 1.13 0.80 - 1.50 mg/dL [facility] Est Glomerular Filtration Rate >60 >=60 [facility] Comment: The reported eGFR should be multiplied by 1.2 for patients. The MDRD is not an appropriate measure of renal function for patients with body mass extremes or in patients with acute kidney failure. http://eCoast.com/DHnkdep http://[email or web address]/DHMCnkf Blood specimen (specimen) 09/12/2017 4:25 AM EDT 09/12/2017 4:39 AM EDT Narrative Resulting Agency Comment Spec In Lab Pablo Govea MD CHEMISTRY ORDERABLE S Performing Organization Address [facility]/ZIP Co de Phone Number [facility] [place] [address] * (ABNORMAL) BUN (09/12/2017 4:25 AM EDT) Blood Urea Nitrogen 21(H) 10 - 20 mg/dL [facility] Blood specimen (specimen) 09/12/2017 4:25 AM EDT 09/12/2017 4:39 AM EDT Narrative Resulting Agency Comment Spec In Lab Pablo Govea MD CHEMISTRY ORDERABLE S Performing Organization Address [facility] Co de Phone Number [facility] [place] [address] * POCT Glucose (09/12/2017 2:16 AM EDT) Glucose, POC 139 65 - 199 mg/dL [facility] Comment: Supplemental ranges: <140 mg/dL before meals <180 mg/dL all other times of the day Blood specimen (specimen) 09/12/2017 2:16 AM EDT 09/12/2017 2:16 AM EDT Pablo Govea MD POINT OF CARE TEST ORDERABLES Performing Organization Address City/[facility]/ZIP Co de Phone Number [facility] [place] [address] * POCT Glucose (09/11/2017 11:31 PM EDT) Glucose, POC 156 65 - 199 mg/dL [facility] Comment: Supplemental ranges: <140 mg/dL before meals <180 mg/dL all other times of the day Blood specimen (specimen) 09/11/2017 11:31 PM EDT 09/11/2017 11:31 PM EDT Pablo Govea MD POINT OF CARE TEST ORDERABLES Performing Organization Address City/[facility]/ZIP Co de Phone Number [facility] [place] [address] * POCT Glucose (09/11/2017 7:05 PM EDT) Glucose, POC 145 65 - 199 mg/dL [facility] Comment: Supplemental ranges: <140 mg/dL before meals <180 mg/dL all other times of the day Blood specimen (specimen) 09/11/2017 7:05 PM EDT 09/11/2017 7:05 PM EDT Pablo Govea MD POINT OF CARE TEST ORDERABLES Performing Organization Address [facility] Co de Phone Number [facility] [place] [address] * POCT Glucose (09/11/2017 5:58 PM EDT) Glucose, POC 157 65 - 199 mg/dL [facility] Comment: Supplemental ranges: <140 mg/dL before meals <180 mg/dL all other times of the day Blood specimen (specimen) 09/11/2017 5:58 PM EDT 09/11/2017 5:58 PM EDT Pablo Govea MD POINT OF CARE TEST ORDERABLES Performing Organization Address City/[facility] Co de Phone Number [facility] [place] [address] * (ABNORMAL) Hemoglobin (09/11/2017 5:00 PM EDT) Hemoglobin 11.6(L) 13.7 - 16.5 gm/dL [facility] Blood specimen (specimen) 09/11/2017 5:00 PM EDT 09/11/2017 5:25 PM EDT Narrative Resulting Agency Comment Spec In Lab Pablo Govea MD HEMATOLOGY ORDERABL ES Performing Organization Address [facility] Co de Phone Number [facility] [place] [address] * Potassium (09/11/2017 5:00 PM EDT) [facility] Potassium 4.1 3.5 - 5.0 mmol/L [facility] MD CHEMISTRY ORDERABLE S Performing Organization Address [facility] Co de Phone Number [facility] [place] [address] * (ABNORMAL) BLOOD GAS 2 ARTERIAL (09/11/2017 2:09 PM EDT) pH, Arterial 7.32(L) 7.35 - 7.45 [facility] PCO2, Arterial 39 35 - 45 mmHg [facility] PO2, Arterial 101 85 - 104 mmHg [facility] Bicarbonate, Arterial 19.8(L) 20.0 - 26.0 mmol/L [facility] Base Excess, Arterial -6.2(L) -3.0 - 3.0 mmol/L [facility] Hgb Blood Gas 13.8 13.7 - 16.5 gm/dL [facility] Oxyhemoglobin, Arterial 95.1 94.0 - 97.0 % [facility] Carboxyhemoglob in, Arterial 0.9 % [facility] Comment: Nonsmokers: 0.5-1.5% COHB Smokers: Variable, but usually less than 10% Toxic: 20-30% COHB Lethal: Greater than 60% COHB Methemoglobin, Arterial 0.7 <=1.5 % [facility] Na Whole Blood 138 135 - 145 mmol/L [facility] K Whole Blood 4.1 3.5 - 5.0 mmol/L [facility] Comment: Please note: Patients with WBC >100,000 may have falsely elevated Potassium levels. Contact the Clinical Chemistry Laboratory if there are any questions. ICa Whole Blood 1.23 1.15 - 1.33 mmol/L [facility] Comment: Note: ??Total bilirubin higher than 20 mg/dL may lead to falsely low ionized calcium. CL Whole Blood 111(H) 98 - 107 mmol/L [facility] Gluc Whole Bld 155 65 - 199 mg/dL [facility] Comment:Diabetes: >=200 mg/d L plus symptoms. Lactate WB 1.3 0.5 - 2.2 mmol/L [facility] FIO2 Art 40 % [facility] PF Ratio Art 252 [facility] Blood specimen (specimen) 09/11/2017 2:09 PM EDT 09/11/2017 2:09 PM EDT Pablo Govea MD POINT OF CARE TEST ORDERABLES Performing Organization Address [facility] de Phone Number [facility] [place] [address] * POCT Glucose (09/11/2017 1:33 PM EDT) Glucose, POC 138 65 - 199 mg/dL [facility] Comment: Supplemental ranges: <140 mg/dL before meals <180 mg/dL all other times of the day Blood specimen (specimen) 09/11/2017 1:33 PM EDT 09/11/2017 1:33 PM EDT Pablo Govea MD POINT OF CARE TEST ORDERABLES Performing Organization Address City/[facility] Co de Phone Number [facility] [place] [address] * Prepare Albumin 5% in 250 mL (09/11/2017 11:56 AM EDT) Pathologist [facility] Dispensed? Yes [facility] Blood specimen (specimen) No Charge / Unknown 09/11/2017 11:56 AM EDT 09/11/2017 11:58 AM EDT Narrative Resulting Agency Comment Spec In Lab David YE BLOOD BANK LAB O RDERABLES [facility] [place] [address] * (ABNORMAL) BLOOD GAS 2 ARTERIAL (09/11/2017 11:37 AM EDT) pH, Arterial 7.30(L) 7.35 - 7.45 [facility] PCO2, Arterial 45 35 - 45 mmHg [facility] PO2, Arterial 260(H) 85 - 104 mmHg [facility] Bicarbonate, Arterial 21.7 20.0 - 26.0 mmol/L [facility] Base Excess, Arterial -4.7(L) -3.0 - 3.0 mmol/L [facility] Hgb Blood Gas 12.9(L) 13.7 - 16.5 gm/dL [facility] Oxyhemoglobin, Arterial 97.7(H) 94.0 - 97.0 % [facility] Carboxyhemoglob in, Arterial 0.4 % [facility] Comment: Nonsmokers: 0.5-1.5% COHB Smokers: Variable, but usually less than 10% Toxic: 20-30% COHB Lethal: Greater than 60% COHB Methemoglobin, Arterial 0.8 <=1.5 % [facility] Na Whole Blood 138 135 - 145 mmol/L [facility] K Whole Blood 4.0 3.5 - 5.0 mmol/L [facility] Comment: Please note: Patients with WBC >100,000 may have falsely elevated Potassium levels. Contact the Clinical Chemistry Laboratory if there are any questions. ICa Whole Blood 1.21 1.15 - 1.33 mmol/L [facility] Comment: Note: ??Total bilirubin higher than 20 mg/dL may lead to falsely low ionized calcium. CL Whole Blood 112(H) 98 - 107 mmol/L [facility] Gluc Whole Bld 139 65 - 199 mg/dL [facility] Comment:Diabetes: >=200 mg/d L plus symptoms. Lactate WB 1.4 0.5 - 2.2 mmol/L [facility] FIO2 Art 100 % [facility] PF Ratio Art 260 [facility] Blood specimen (specimen) 09/11/2017 11:37 AM EDT 09/11/2017 11:37 AM EDT Pablo Govea MD POINT OF CARE TEST ORDERABLES Performing Organization Address City/State/[facility] Co wy Phone Number [facility] [place] [address] * XR Chest PA or AP 1 [...] (Bezet) 423 ms MUSE SYSTEM Calculated R Andrews 49 degrees MUSE SYSTEM Calculated T Andrews 42 degrees MUSE SYSTEM INTERPRETATION Atrial fibrillation with slow ventricular response T wave abnormality, consider inferior ischemia Abnormal ECG When compared with ECG of 01-SEP-2017 09:11, Atrial fibrillation has replaced Sinus rhythm Confirmed by MD Afia, Albert [email or web address] ([id number]) on 09/11/2017 10:06:48 PM MUSE SYSTEM 09/11/2017 11:2 4 AM EDT 09/11/2017 10:06 PM EDT Pablo Govea MD ECG ORDERABLES MUSE SYSTEM * (ABNORMAL) Thrombin time (09/11/2017 10:15 AM EDT) Thrombin Time 22(H) 15 - 20 sec [facility] Comment: A prolongation in the [...] MD HEMATOLOGY ORDERABL ES Performing Organization Address [facility]/ZIP Co de Phone Number [facility] [place] [address] * Fibrinogen (09/11/2017 10:15 AM EDT) Fibrinogen 193 180 - 510 mg/dL [facility] Comment: Called by: ambreen, Read back by: Molly Villavicencio, Date/Time:09/11/17 10:36. A fibrinogen level >100 mg/dL is adequate for hemostasis in most patients without underlying bleeding disorders. Blood specimen (specimen) 09/11/2017 10:15 AM EDT 09/11/2017 10:19 AM EDT Narrative Resulting Agency Comment Spec In Lab Pablo Govea MD HEMATOLOGY ORDERABL ES Performing Organization Address [facility] Co de Phone Number [facility] [place] [address] * APTT (09/11/2017 10:15 AM EDT) Pathologist [facility] Partial Thromboplastin Time 34 25 - 35 sec [facility] Comment: The recommended therapeutic range for full dose, unfractionated heparin at [facility] is 80 ? 114 seconds. The use of the anti-Xa (heparin) level rather than the PTT is recommended for monitoring anticoagulation intensity in critically ill patients receiving unfractionated heparin by continuous IV infusion. Blood specimen (specimen) 09/11/2017 10:15 AM EDT 09/11/2017 10:19 AM EDT Narrative Resulting Agency Comment Spec In Lab Pablo Govea MD HEMATOLOGY ORDERABL ES Performing Organization Address [facility]/ZIP Co de Phone Number [facility] [place] [address] * (ABNORMAL) Prothrombin Time (09/11/2017 10:15 AM EDT) Prothrombin Time 17.5(H) 11.8 - 14.0 sec [facility] International Normalization Ratio 1.5(H) 0.9 - 1.1 [facility] Comment: An INR <2.0 indicates [...] Lab Pablo Govea MD HEMATOLOGY ORDERABL ES [facility] [place] [address] * (ABNORMAL) Hemogram (09/11/2017 10:15 AM EDT) Pathologist [facility] White Blood Cell 9.3 4.0 - 9.5 x10(3)/mc L [facility] Red Blood Cell 3.32(L) 4.58 - 5.54 x10(6)/mc L [facility] Hemoglobin 10.0(L) 13.7 - 16.5 gm/dL [facility] Hematocrit 30.3(L) 40.5 - 48.5 % [facility] Comment: This result has been called to ADWOA ORELLANA by RO LOVE on 09 11 2017 at 1028, and has been read back. Mean Cell Volume 91.3 82.9 - 93.1 fL [facility] Mean Cell Hemoglobin 30.1 27.5 - 32.1 pg [facility] Mean Cell Hemoglobin Concentration 33.0 32.0 - 35.7 gm/dL [facility] Platelet 161 145 - 357 x10(3)/mc L [facility] RDW Standard Deviation 43.3 36.0 - 45.0 fL [facility] RDW coefficient of variation 13.0 11.4 - 13.8 % [facility] Mean Platelet Volume 9.4 7.6 - 12.9 fL [facility] NRBC% auto 0.0 % [facility] NRBC Absolute 0.000 0.000 - 0.000 x10(3)/mc L [facility] Blood specimen (specimen) 09/11/2017 10:15 AM EDT 09/11/2017 10:19 AM EDT Narrative Resulting Agency Comment Spec In Lab Pablo Govea MD HEMATOLOGY ORDERABL ES [facility] [place] [address] * (ABNORMAL) BLOOD GAS 2 ARTERIAL (09/11/2017 10:13 AM EDT) pH, Arterial 7.29(Criti krishna) 7.35 - 7.45 [facility] Comment:Noted by surgical instrument repair specialist. PCO2, Arterial 45 35 - 45 mmHg [facility] PO2, Arterial 87 85 - 104 mmHg [facility] Bicarbonate, Arterial 21.3 20.0 - 26.0 mmol/L [facility] Base Excess, Arterial -5.3(L) -3.0 - 3.0 mmol/L [facility] Hgb Blood Gas 10.7(L) 13.7 - 16.5 gm/dL [facility] Oxyhemoglobin, Arterial 94.1 94.0 - 97.0 % [facility] Carboxyhemoglob in, Arterial 0.3 % [facility] Comment: Nonsmokers: 0.5-1.5% COHB Smokers: Variable, but usually less than 10% Toxic: 20-30% COHB Lethal: Greater than 60% COHB Methemoglobin, Arterial 0.3 <=1.5 % [facility] Na Whole Blood 136 135 - 145 mmol/L [facility] K Whole Blood 4.2 3.5 - 5.0 mmol/L [facility] Comment: Please note: Patients with WBC >100,000 may have falsely elevated Potassium levels. Contact the Clinical Chemistry Laboratory if there are any questions. ICa Whole Blood 1.22 1.15 - 1.33 mmol/L [facility] Comment: Note: ??Total bilirubin higher than 20 mg/dL may lead to falsely low ionized calcium. CL Whole Blood 110(H) 98 - 107 mmol/L [facility] Gluc Whole Bld 165 65 - 199 mg/dL [facility] Comment:Diabetes: >=200 mg/d L plus symptoms. Lactate WB 1.8 0.5 - 2.2 mmol/L [facility] Blood specimen (specimen) 09/11/2017 10:13 AM EDT 09/11/2017 10:13 AM EDT Pablo Govea MD POINT OF CARE TEST ORDERABLES Performing Organization Address City/State/[facility] Co de Phone Number [facility] [place] [address] * (ABNORMAL) BLOOD GAS 2 ARTERIAL (09/11/2017 9:36 AM EDT) pH, Arterial 7.30(L) 7.35 - 7.45 [facility] PCO2, Arterial 45 35 - 45 mmHg [facility] PO2, Arterial 227(H) 85 - 104 mmHg [facility] Bicarbonate, Arterial 21.5 20.0 - 26.0 mmol/L [facility] Base Excess, Arterial -4.9(L) -3.0 - 3.0 mmol/L [facility] Hgb Blood Gas 10.6(L) 13.7 - 16.5 gm/dL [facility] Oxyhemoglobin, Arterial 98.5(H) 94.0 - 97.0 % [facility] Carboxyhemoglob in, Arterial 0.3 % [facility] Comment: Nonsmokers: 0.5-1.5% COHB Smokers: Variable, but usually less than 10% Toxic: 20-30% COHB Lethal: Greater than 60% COHB Methemoglobin, Arterial 0.3 <=1.5 % [facility] Na Whole Blood 134(L) 135 - 145 mmol/L [facility] K Whole Blood 4.6 3.5 - 5.0 mmol/L [facility] Comment: Please note: Patients with WBC >100,000 may have falsely elevated Potassium levels. Contact the Clinical Chemistry Laboratory if there are any questions. ICa Whole Blood 1.07(L) 1.15 - 1.33 mmol/L [facility] Comment: Note: ??Total bilirubin higher than 20 mg/dL may lead to falsely low ionized calcium. CL Whole Blood 107 98 - 107 mmol/L [facility] Gluc Whole Bld 183 65 - 199 mg/dL [facility] Comment:Diabetes: >=200 mg/d L plus symptoms. Lactate WB 1.8 0.5 - 2.2 mmol/L [facility] Blood specimen (specimen) 09/11/2017 9:36 AM EDT 09/11/2017 9:36 AM EDT Pablo Govea MD POINT OF CARE TEST ORDERABLES [facility] [place] [address] * Platelet count (09/11/2017 9:30 AM EDT) Platelet 176 145 - 357 x10(3)/mc L [facility] Immature Plt % 1.4 0.0 - 7.4 % [facility] Comment: Limitation of the Immature Platelet Fraction (IPF)-May be less reliable when the platelet count is less than 30u705/uL due to statistical imprecision. The IPF value [...] in a decreased state of production. References: [employer] The Clinical Value of the Immature Platelet Fraction (IPF) in Cell Recovery Document Number 10-1143 11/2010 [employer] The Role of the Immature Platelet Fraction (IPF) in the Differential Diagnosis of Thrombocytopenia, Document MKT-10-1209 V05 P011/06 Blood specimen (specimen) 09/11/2017 9:30 AM EDT 09/11/2017 9:38 AM EDT Narrative Resulting Agency Comment Spec In Lab Pablo Govea MD HEMATOLOGY ORDERABL ES Performing Organization Address [facility] Co de Phone Number [facility] [place] [address] * (ABNORMAL) Hemoglobin and Hematocrit, blood (09/11/2017 9:30 AM EDT) Hemoglobin 9.9(L) 13.7 - 16.5 gm/dL [facility] Hematocrit 29.2(L) 40.5 - 48.5 % [facility] Comment: This result has been called to MOMO VILLAVICENCIO by DILLAN NASCIMENTO on 09 11 2017 at 0954, and has been read back. Blood specimen (specimen) 09/11/2017 9:30 AM EDT 09/11/2017 9:38 AM EDT Narrative Resulting Agency Comment Spec In Lab Pablo Govea MD HEMATOLOGY ORDERABL ES Performing Organization Address [facility] Co de Phone Number [facility] [place] [address] * Fibrinogen (09/11/2017 9:30 AM EDT) Fibrinogen 182 180 - 510 mg/dL [facility] Comment: Called by: eds, Read back by: Molly Villavicencio, Date/Time:09/11/17 09:51. A fibrinogen level >100 mg/dL is adequate for hemostasis in most patients without underlying bleeding disorders. Blood specimen (specimen) 09/11/2017 9:30 AM EDT 09/11/2017 9:38 AM EDT Narrative Resulting Agency Comment Spec In Lab Pablo Govea MD HEMATOLOGY ORDERABL ES [facility] [place] [address] * (ABNORMAL) BLOOD GAS 2 ARTERIAL (09/11/2017 9:15 AM EDT) pH, Arterial 7.31(L) 7.35 - 7.45 [facility] PCO2, Arterial 46(H) 35 - 45 mmHg [facility] PO2, Arterial 317(H) 85 - 104 mmHg [facility] Bicarbonate, Arterial 22.2 20.0 - 26.0 mmol/L [facility] Base Excess, Arterial -4.1(L) -3.0 - 3.0 mmol/L [facility] Hgb Blood Gas 10.8(L) 13.7 - 16.5 gm/dL [facility] Oxyhemoglobin, Arterial 98.5(H) 94.0 - 97.0 % [facility] Carboxyhemoglob in, Arterial 0.3 % [facility] Comment: Nonsmokers: 0.5-1.5% COHB Smokers: Variable, but usually less than 10% Toxic: 20-30% COHB Lethal: Greater than 60% COHB Methemoglobin, Arterial 0.3 <=1.5 % [facility] Na Whole Blood 134(L) 135 - 145 mmol/L [facility] K Whole Blood 5.0 3.5 - 5.0 mmol/L [facility] Comment: Please note: Patients with WBC >100,000 may have falsely elevated Potassium levels. Contact the Clinical Chemistry Laboratory if there are any questions. ICa Whole Blood 0.96(L) 1.15 - 1.33 mmol/L [facility] Comment: Note: ??Total bilirubin higher than 20 mg/dL may lead to falsely low ionized calcium. CL Whole Blood 106 98 - 107 mmol/L [facility] Gluc Whole Bld 188 65 - 199 mg/dL [facility] Comment:Diabetes: >=200 mg/d L plus symptoms. Lactate WB 1.5 0.5 - 2.2 mmol/L [facility] Blood specimen (specimen) 09/11/2017 9:15 AM EDT 09/11/2017 9:15 AM EDT Pablo Govea MD POINT OF CARE TEST ORDERABLES [facility] [place] [address] * (ABNORMAL) BLOOD GAS 2 ARTERIAL (09/11/2017 8:12 AM EDT) pH, Arterial 7.35(L) 7.35 - 7.45 [facility] PCO2, Arterial 41 35 - 45 mmHg [facility] PO2, Arterial 148(H) 85 - 104 mmHg [facility] Bicarbonate, Arterial 22.3 20.0 - 26.0 mmol/L [facility] Base Excess, Arterial -3.3(L) -3.0 - 3.0 mmol/L [facility] Hgb Blood Gas 13.1(L) 13.7 - 16.5 gm/dL [facility] Oxyhemoglobin, Arterial 97.8(H) 94.0 - 97.0 % [facility] Carboxyhemoglob in, Arterial 0.6 % [facility] Comment: Nonsmokers: 0.5-1.5% COHB Smokers: Variable, but usually less than 10% Toxic: 20-30% COHB Lethal: Greater than 60% COHB Methemoglobin, Arterial 0.1 <=1.5 % [facility] Na Whole Blood 140 135 - 145 mmol/L [facility] K Whole Blood 3.9 3.5 - 5.0 mmol/L [facility] Comment: Please note: Patients with WBC >100,000 may have falsely elevated Potassium levels. Contact the Clinical Chemistry Laboratory if there are any questions. ICa Whole Blood 1.23 1.15 - 1.33 mmol/L [facility] Comment: Note: ??Total bilirubin higher than 20 mg/dL may lead to falsely low ionized calcium. CL Whole Blood 110(H) 98 - 107 mmol/L [facility] Gluc Whole Bld 118 65 - 199 mg/dL [facility] Comment:Diabetes: >=200 mg/d L plus symptoms. Lactate WB 2.1 0.5 - 2.2 mmol/L [facility] FIO2 Art 70 % [facility] PF Ratio Art 211 [facility] Blood specimen (specimen) 09/11/2017 8:12 AM EDT 09/11/2017 8:12 AM EDT Pablo Govea MD POINT OF CARE TEST ORDERABLES Performing Organization Address [facility] Co de Phone Number [facility] [place] [address] * Prepare RBC (09/11/2017 6:30 AM EDT) Dispensed? 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 angina pectoris S/P CABG x 2 Postsurgical aortocoronary bypass status documented in this encounter Admitting Diagnoses Diagnosis Atherosclerosis of [place] coronary artery of [place] heart with angina pectoris documented in this [...] on Mon09/11/17 at 1615, Until Discontinued, Give LA if unable to take PO, Routine Given 09/11/2017 9:15 PM EDT 300 mg chlorhexidine (PERIDEX) 0.12 % oral solution 15 mL 15 mL, Oral, EVERY 12 HOURS SCHEDULED (2 times per day), First dose on Mon09/11/17 at 1130, Until Discontinued, [place] teeth, Routine Given 09/12/2017 8:19 AM EDT [...] if phenyleprine and/or vasopressin ineffective.Call pager # [phone] if initiated., Routine Rate/Dose Change 09/11/2017 6:00 [...] last modification) on Mon09/14/17 at 1515, Routine Given 09/14/2017 5:26 PM [...] 2.0 L/min/M2. Maximum volume 2 L. Call housekeeping/laundry supervisor for additional fluid orders: pager #[phone]. New Bag 09/11/2017 11:00 AM EDT 100 [...] Belgica Olson RN)0924 (Given - Provider: Mara Hood, LENY)1632 (Given - Provider: Mara Hood, LENY)2007 (Not Given - Provider: Mar Nash RN - Reason: Patient/family refused) 0542 (Given - Provider: Mar Nash RN)1031 (Given - Provider: Mara Hood, LENY)1725 (Given - Provider: Mara Hood RN)2017 (Given - Provider: Elías Smith RN) 0408 (Given - Provider: Юлия Chacon RN)0925 (Given - Provider: Mara Hood, RN) AMIOdarone (CORDARONE) bolus from bag 150 mg [...] Provider: Elías Smith RN - Comment: .47) 0925 (Given - Provider: Mara Hood RN - Comment: QTC .46) aspirin chewable tablet 81 mg(Linked Group 2) 81 mg, Oral, DAILY, First dose (after last modification) on Mon09/11/17 at 1615, Until Discontinued, Routine 0925 (Given - Provider: Mara Hood RN) 0828 (Given - Provider: Mara Hood, LENY) 0926 (Given - Provider: Mara Hood, LENY) aspirin suppository 300 mg(Linked Group 2) 300 mg, Rectal, DAILY, First dose (after last modification) on Mon09/11/17 at 1615, Until Discontinued, Give LA if unable to take PO, Routine 0925 (See Alternative - Provider: Mara Hood RN) 0828 (See Alternative - Provider: Mara Hood RN) 0926 (See Alternative - Provider: Mara Hood, LENY) furosemide (LASIX) injection 20 mg 20 mg, Intravenous, 2 TIMES DAILY, First dose on Mon09/12/17 at 1700, Until Discontinued 0921 (Given - Provider: Mara Hood RN)1633 (Given - Provider: Mara Hood RN) 0835 (Given - Provider: Mara Hood, LENY)1718 (Given - Provider: Mara Hood, LENY) 0926 (Given - Provider: Mara Hood, LENY) insulin lispro (humaLOG) VIAL injection 1-4 Units [...] Mon09/14/17 at 1315, Administer over 120 Minutes 1319 (New Bag - Provider: Juan Pinzon RN)1519 (Stopped - Provider: Mara Hood RN) meTOPROLOL tartrate (LOPRESSOR) tablet 25 mg (CANCELED) 25 mg, Oral, EVERY 12 HOURS SCHEDULED (2 times per day), First dose (after last modification) on Mon09/13/17 at 0900, Until Discontinued, Routine 09 (Given - Provider: Mara Hood RN)2007 (Given - Provider: Mar Nash RN) 08 (Given - Provider: Mara Hood, LENY) meTOPROLOL tartrate (LOPRESSOR) tablet 25 mg 25 mg, Oral, EVERY 8 HOURS SCHEDULED, First dose (after last modification) on Mon09/14/17 at 1400, Until Discontinued, Routine 1319 (Given - Provider: Juan Pinzon, RN)2139 (Given - Provider: Юлия Chacon, LENY) 0502 (Given - Provider: Юлия Chacon RN) pantoprazole [...] 0924 (Given - Provider: Mara Hood RN) 08 (Given - Provider: Mara Hood RN) 09 [...] refused) 2017 (Not Given - Provider: Elías Smith, LENY - Reason: Patient/family refused) simvastatin (ZOCOR) tablet 20 mg 20 mg, Oral, NIGHTLY, First dose (after last modification) on Mon09/14/17 at 2100, Until Discontinued 2017 (Given - Provider: Elías Smith, LENY) simvastatin (ZOCOR) tablet 40 mg (CANCELED) 40 [...] Mara Hood, LENY)1900 (Given - Provider: Elías Smith RN) 0300 (Given - Provider: Юлия Chacon, LENY) Continuous Medication Order 09/13/2017 09/14/2017 09/15/2017 AMIOdarone [...] dosing. 2253 (New Bag - Provider: Mar Nash, RN) 0144 (New Bag - Provider: Mar Nash, RN)0500 (Rate/Dose Change - Provider: Mar Nash [...] on Mon09/11/17 at 1615, Until Discontinued, Give LA if unable to take PO, Routine Group [...] Routine documented in this encounter Care Teams Tibco Developer Relationship Specialty Start Date End Date Devorah Epstein MD [address] [place] [address] PCP - General Family Medicine 09/01/17 documented as of this encounter
--- OUTSIDE RECORDS SUMMARY | 2024-04-29 19:14 | XMS_ITS | Encounter Summary ---
[place] [address] Care Team Providers Care Store Host Name Role Phone Devorah Epstein MD Primary Care Provider [phone] Encounter Details Date Type Department Care Team (Late st Contact Info) Description 10/17/2017 2:40 PM EDT Office [place] [address] Pablo Govea MD S/P CABG (coronary artery bypass graft) Social [...] acute changes Overall impression Mr. 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
--- OUTSIDE RECORDS SUMMARY | 2024-04-29 19:15 | XMS_ITS | Encounter Summary ---
[place] [address] Care Team Providers Care Import Export Clerk Name Role Phone Devorah Epstein MD Primary Care Provider Encounter Details Date Type Department Care Team (Late st Contact Info) Description 09/01/2017 2:10 PM EST Laboratory [place] [address] Social History Tobacco Use Types Packs/Day Years [...] AM EST Hospital Encounter Non-Invasive [place] [address] Arrived documented as of this encounter Visit Diagnoses Not on filedocumented in this encounter Care Teams Import Export Clerk Relationship Specialty Start Date End Date Devorah Epstein MD [address] [place] [address] PCP - General Family Medicine 09/01/17 documented as of this encounter
--- OUTSIDE RECORDS SUMMARY | 2024-04-29 19:15 | XMS_ITS | Encounter Summary ---
Author Organization [facility] [place] [address] Care Team Providers Care Car Hop Name Role Phone Devorah Epstein MD Primary Care Provider [phone] Encounter Details Date Type Department Care Team (Latest Contact Info) Description 09/01/2017 8:26 AM EST - 09/01/2017 2:20 PM EST Hospital Encounter [place] [id number] [place] [address] Abnormal stress test; LOYOLA (dyspnea on exertion); Atherosclerosis of [place] coronary artery of [place] heart with angina pectoris Discharge Disposition: Home [...] by your doctor, do not take any ubeh-lhx-beyhutz medicines or herbal preparations without first discussing this with your doctor or pharmacist. There is the possibility of side effect and interactions when these are combined. Follow up Care Who to Call with Questions or Problems If there are any questions or problems that you think might be related to your cardiac cath or angioplasty, contact the joint cutter contract specialist by calling [facility] at . documented in this encounter Medications [...] and family . Patient will go to [facility] and xray prior to discharge from hospital documented in this encounter H&P Notes * Marcell Gilman MD - 09/01/2017 8:54 AM EST Complete Adult Pre-Procedural H&P Patient Name: Keegan Cabrera : 1940 77 y.o. MR#: [id number] Chief Complaint: Dyspnea Planned Procedure: Left heart [...] AM EST Hospital Encounter Non[place] [address] Arrived documented as of this encounter Procedures Procedure Name Priority Date/Time Associated Diagnosis Comments ABORH RECHECK STATUS Routine 09/01/2017 3:15 PM EST HEMOGRAM Routine 09/01/2017 3:15 PM EST [facility]rosclerosis of [place] coronary artery of [place] heart with angina pectoris DIFFERENTIAL, AUTOMATED Routine 09/01/2017 3:15 PM EST Atherosclerosis of [place] coronary artery of [place] heart with angina pectoris TYPE AND SCREEN, SDP (FUTURE SURGERY, [facility] SAME DAY PROGRAM ONLY) Routine 09/01/2017 3:15 PM EST [facility]rosclerosis of [facility] coronary artery of [place] heart with angina pectoris ABO/RH TYPING Routine 09/01/2017 3:15 PM EST Atherosclerosis of [place] coronary artery of [place] heart with angina pectoris CBC (WITH DIFF) Routine 09/01/2017 3:15 PM EST [facility]rosclerosis of [facility] coronary artery of [place] heart with angina pectoris ANTIBODY SCREEN Routine 09/01/2017 3:15 PM EST Atherosclerosis of [place] coronary artery of [place] heart with angina pectoris BASIC METABOLIC PANEL Routine 09/01/2017 3:15 PM EST Atherosclerosis of [place] coronary artery of [place] heart with angina pectoris EKG 12-LEAD Routine 09/01/2017 9:11 AM EST Abnormal stress test LOYOLA (dyspnea on exertion) documented in this encounter Results * ABORH Recheck Status (09/01/2017 3:15 PM EST) ABORH Recheck Order Order Placed [facility] ABORH Type Recheck Complete [facility] Blood specimen (specimen) 09/01/2017 3:15 PM EST 09/01/2017 4:27 PM EST Narrative Resulting Agency Comment Spec In Lab Pablo Govea MD BLOOD BANK LAB ZAY UPRI [facility] [place] [place] [address] * Differential, Automated (09/01/2017 3:15 PM EST) Neutrophil % 71.6 % [facility] Neutrophil Absolute 4.17 1.70 - 6.10 x10(3)/[facility] LABORAT[facility] Lymph % 16.5 % [facility] Lymphocytes Abs 1.0 0.9 - 3.2 x10(3)/[facility]OR[facility]ORY Monocyte % 8.8 % [facility] Monocyte Abs 0.5 0.3 - 0.9 x10(3)/[facility] LABORATORY Eos % 1.9 % [facility] Eosinophils Abs 0.1 0.0 - 0.4 x10(3)/[facility] Basophil % 0.7 % [facility] Baso Absolute 0.0 0.0 - 0.1 x10(3)/[facility] Immature Gran % 0.50 % [facility] Comment: Immature granulocytes(IG's)percentage and absolute count will include metamyelocytes, myelocytes, and promyelocytes. Blood smears from CBCs yielding IG's will be scanned manually for concordance. If this scan disagrees with the automated IG or if promyelocytes are noted, a manual differential will be performed. Immature Gran Absolute 0.03 0.00 - 0.04 x10(3)/[facility] LABORATORY Blood specimen (specimen) 09/01/2017 3:15 PM EST 09/01/2017 3:30 PM EST Narrative Resulting Agency Comment Spec In Lab Pablo Govea MD HEMATOLOGY ORDERABL ES Performing Organization Address City/[facility] Co de Phone Number [facility] [place] [address] * Hemogram (09/01/2017 3:15 PM EST) White Blood Cell 5.8 4.0 - 9.5 x10(3)/[facility]ORATORY Red Blood Cell 4.90 4.58 - 5.54 x10(6)/[facility] Hemoglobin 14.9 13.7 - 16.5 gm/dL [facility] Hematocrit 43.8 40.5 - 48.5 % [facility] Mean Cell Volume 89.4 82.9 - 93.1 fL [facility] Mean Cell Hemoglobin 30.4 27.5 - 32.1 pg [facility] Mean Cell Hemoglobin Concentration 34.0 32.0 - 35.7 gm/dL [facility] Platelet 157 145 - 357 x10(3)/[facility] LABORATORY RDW Standard Deviation 43.4 36.0 - 45.0 [facility] LABORATORY RDW coefficient of variation 13.5 11.4 - 13.8 % [facility] Mean Platelet Volume 9.3 7.6 - 12.9 [facility] LABORATORY NRBC% auto 0.0 % [facility] NRBC Absolute 0.000 0.000 - 0.000 x10(3)/[facility] Blood specimen (specimen) 09/01/2017 3:15 PM EST 09/01/2017 3:30 PM EST Narrative Resulting Agency Comment Spec In Lab Pablo Govea MD HEMATOLOGY ORDERABL ES Performing Organization Address City/[facility]/ZIP Co de Phone Number [facility] [place] [address] * Antibody screen (09/01/2017 3:15 PM EST) Ab Screen Interp Negative [facility] Expires at [id number] on: 09/14/2017 [facility] Blood specimen (specimen) 09/01/2017 3:15 PM EST 09/01/2017 3:41 PM EST Narrative Resulting Agency Comment Spec In Lab Pablo Govea MD BLOOD BANK LAB ORDE KHUSHI [facility] [place] [address] * ABO/Rh Typing (09/01/2017 3:15 PM EST) Pathologist [facility] ABORH Type B Pos [facility] Blood specimen (specimen) 09/01/2017 3:15 PM EST 09/01/2017 3:41 PM EST Narrative Resulting Agency Comment Spec In Lab Pablo Govea MD BLOOD BANK LAB ORDGisel PURI Performing Organization Address City/[facility]/ZIP Co de Phone Number [facility] [place] [address] * (ABNORMAL) Basic Metabolic Panel (non-fasting) (09/01/2017 3:15 PM EST) [facility] Glucose 119 65 - 199 mg/dL [facility] Comment:Diabetes: >=200 mg/d L plus symptoms Blood Urea Nitrogen 21(H) 10 - 20 mg/dL [facility] Creatinine 1.12 0.80 - 1.50 mg/dL [facility] Sodium 141 135 - 145 mmol/L [facility] Potassium 3.9 3.5 - 5.0 mmol/L [facility] Comment: Please note: ??Patients with WBC >100,000 may have falsely elevated Potassium levels. ??For accurate Potassium quantification in these patients send serum separator tube (gold top) for subsequent determinations. ??Contact the Clinical Chemistry Laboratory if there are any questions. Chloride 103 98 - 107 mmol/L [facility] Carbon Dioxide 24 22 - 31 mmol/L [facility] Anion Gap 14 5 - 15 mmol/L [facility] Calcium 10.1 8.5 - 10.5 mg/dL [facility] Est Glomerular Filtration Rate >60 >=60 [facility] Comment: The reported eGFR should be multiplied by 1.2 for patients. The MDRD is not an appropriate measure of renal function for patients with body mass extremes or in patients with acute kidney failure. http://Reflex/DHnkdep http://Reflex/DHMCnkf Blood specimen (specimen) 09/01/2017 3:15 PM EST 09/01/2017 3:30 PM EST Narrative Resulting Agency Comment Spec In Lab Pablo Govea MD CHEMISTRY ORDERABLE S Performing Organization Address City/[facility]/ZIP Co de Phone Number [facility] [place] [address] * EKG 12 Lead (09/01/2017 9:11 AM EST) Ventricular rate 78 BPM MUSE SYSTEM Atrial Rate 78 BPM MUSE SYSTEM P-R Interval 240 ms MUSE SYSTEM QRS Duration 94 ms MUSE SYSTEM Q-T Interval 408 ms MUSE SYSTEM QTC Calculated (Bezet) 465 ms MUSE SYSTEM Calculated P [place] 56 degrees MUSE SYSTEM Calculated R [place] 43 degrees MUSE SYSTEM Calculated T [place] -2 degrees MUSE SYSTEM INTERPRETATION Sinus rhythm with 1st degree A-V block Nonspecific ST and T wave abnormality Abnormal ECG No previous ECGs available I personally reviewed the tracing and edited the fellows interpretation Confirmed by fellow MD Don, Grant ([id number]) on 09/01/2017 11:44:57 AM Confirmed by MD AFSHAN, ISABEL ([id number]) on 09/02/2017 3:03:24 PM MUSE SYSTEM 09/01/2017 9:11 AM EST 09/02/2017 3:03 PM EST Brianna Brock MD ECG ORDERABLES Performing Organization Address City/[facility]/ZIP Co de Phone Number MUSE SYSTEM documented in this encounter Visit Diagnoses Diagnosis Abnormal stress test Other nonspecific abnormal cardiovascular system function study LOYOLA (dyspnea on exertion) Other dyspnea and respiratory abnormality Atherosclerosis of [place] coronary artery of [place] heart with angina pectoris documented in this [...] Routine 1028 (Given - Provid er: Navin Stringer, LENY) iohexol (OMNIPAQUE) 350 mg/mL solution (CANCELED) ONCE [...] RN) documented in this encounter Care Teams Car Hop Relationship Specialty Start Date End Date Devorah Epstein MD [address] [place] [address] PCP - General Family Medicine 09/01/17 documented as of this encounter
--- OUTSIDE RECORDS SUMMARY | 2024-04-29 19:15 | XMS_ITS | Encounter Summary ---
Author Organization [facility] [place] [address] Care Team Providers Care Research And Evaluation Manager Name Role Phone Devorah Epstein MD Primary Care Provider [phone] Encounter Details Date Type Department Care Team (Late st Contact Info) Description 09/01/2017 9:30 AM EST - 09/01/2017 10:30 AM EST Surgery [place] [phone] [place] [address] CARDIAC CATHETERIZATION Social History Tobacco Use Types [...] by your doctor, do not take any [id number] medicines or herbal preparations without first discussing this with your doctor or pharmacist. There is the possibility of side effect and interactions when these are combined. Follow up Care Who to Call with Questions or Problems If there are any questions or problems that you think might be related to your cardiac cath or angioplasty, contact the band director national van owner operator by calling [facility] at . documented in this encounter Medications [...] family . Patient will go to [facility] and xray prior to discharge from hospital documented in this encounter H&P Notes * Marcell Gilman MD - 09/01/2017 8:54 AM EST Complete Adult Pre-Procedural H&P Patient Name: Keegan Cabrera : 1940 77 y.o. MR#: [id number] Chief Complaint: Dyspnea Planned Procedure: Left heart [...] AM EST Hospital Encounter Non-Invasive [place] [address] Arrived documented as of this encounter Procedures Procedure Name Priority Date/Time Associated Diagnosis Comments ABORH RECHECK STATUS Routine 09/01/2017 3:15 PM EST HEMOGRAM Routine 09/01/2017 3:15 PM EST Atherosclerosis [place] coronary artery [place] heart with angina pectoris DIFFERENTIAL, AUTOMATED Routine 09/01/2017 3:15 PM EST Atherosclerosis [place] coronary artery [place] heart with angina pectoris TYPE AND SCREEN, SDP (FUTURE SURGERY, [facility] SAME DAY PROGRAM ONLY) Routine 09/01/2017 3:15 PM EST Atherosclerosis [place] coronary artery [place] heart with angina pectoris ABO/RH TYPING Routine 09/01/2017 3:15 PM EST Atherosclerosis [place] coronary [place] heart with angina pectoris CBC (WITH DIFF) Routine 09/01/2017 3:15 PM EST Atherosclerosis [place] coronary artery [place] heart with angina pectoris ANTIBODY SCREEN Routine 09/01/2017 3:15 PM EST Atherosclerosis [place] coronary artery of [place] heart with angina pectoris BASIC METABOLIC PANEL Routine 09/01/2017 3:15 PM EST Atherosclerosis [place] coronary artery [place] heart with angina pectoris EKG 12-LEAD Routine 09/01/2017 9:11 AM EST Abnormal stress test LOYOLA (dyspnea on exertion) documented in this encounter Results * ABORH Recheck Status (09/01/2017 3:15 PM EST) ABORH Recheck Order Order Placed [facility] ABORH Type Recheck Complete [facility] Blood specimen (specimen) 09/01/2017 3:15 PM EST 09/01/2017 4:27 PM EST Narrative Resulting Agency Comment Spec In Lab Pablo Govea MD BLOOD BANK LAB ZAY PURI [facility] [place] [address] * Differential, Automated (09/01/2017 3:15 PM EST) Neutrophil % 71.6 % [facility] Neutrophil Absolute 4.17 1.70 - 6.10 x10(3)/[facility] LABORATORY Lymph % 16.5 % [facility] Lymphocytes Abs 1.0 0.9 - 3.2 x10(3)/[facility] Monocyte % 8.8 % [facility] Monocyte Abs 0.5 0.3 - 0.9 x10(3)/[facility]OR[facility] Eos % 1.9 % [facility] Eosinophils Abs 0.1 0.0 - 0.4 x10(3)/[facility] Basophil % 0.7 % [facility] Baso Absolute 0.0 0.0 - 0.1 x10(3)/[facility]ORATORY Immature Gran % 0.50 % [facility] Comment: Immature granulocytes(IG's)percentage and absolute count will include metamyelocytes, myelocytes, and promyelocytes. Blood smears from CBCs yielding IG's will be scanned manually for concordance. If this scan disagrees with the automated IG or if promyelocytes are noted, a manual differential will be performed. Immature Gran Absolute 0.03 0.00 - 0.04 x10(3)/[facility] Blood specimen (specimen) 09/01/2017 3:15 PM EST 09/01/2017 3:30 PM EST Narrative Resulting Agency Comment Spec In Lab Pablo Goeva MD HEMATOLOGY ORDERABL ES [facility] [place] [address] * Hemogram (09/01/2017 3:15 PM EST) [facility] White Blood Cell 5.8 4.0 - 9.5 x10(3)/[facility] Red Blood Cell 4.90 4.58 - 5.54 x10(6)/[facility] Hemoglobin 14.9 13.7 - 16.5 gm/dL [facility] Hematocrit 43.8 40.5 - 48.5 % [facility] Mean Cell Volume 89.4 82.9 - 93.1 fL [facility] Mean Cell Hemoglobin 30.4 27.5 - 32.1 pg [facility] Mean Cell Hemoglobin Concentration 34.0 32.0 - 35.7 gm/dL [facility] Platelet 157 145 - 357 x10(3)/[facility]ORATORY RDW Standard Deviation 43.4 36.0 - 45.0 [facility]ORY RDW coefficient of variation 13.5 11.4 - 13.8 % [facility] Mean Platelet Volume 9.3 7.6 - 12.9 [facility] NRBC% auto 0.0 % [facility] NRBC Absolute 0.000 0.000 - 0.000 x10(3)/[facility] Blood specimen (specimen) 09/01/2017 3:15 PM EST 09/01/2017 3:30 PM EST Narrative Resulting Agency Comment Spec In Lab Pablo Govea MD HEMATOLOGY ORDERABL ES [facility] [place] [address] * Antibody screen (09/01/2017 3:15 PM EST) Pathologist [facility] Ab Screen Interp Negative [facility] Expires at 2359 on: 09/14/2017 [facility] Blood specimen (specimen) 09/01/2017 3:15 PM EST 09/01/2017 3:41 PM EST Narrative Resulting Agency Comment Spec In Lab Pablo Govea MD BLOOD BANK LAB ZAY CORDONFAYE Performing Organization Address City/[facility]/ZIP Co de Phone Number [facility] [place] [address] * ABO/Rh Typing (09/01/2017 3:15 PM EST) Pathologist [facility] ABORH Type B Pos [facility] Blood specimen (specimen) 09/01/2017 3:15 PM EST 09/01/2017 3:41 PM EST Narrative Resulting Agency Comment Spec In Lab Pablo Govea MD BLOOD BANK LAB ZAY KHUSHI Performing Organization Address City/[facility] Co de Phone Number [facility] [place] [address] * (ABNORMAL) Basic Metabolic Panel (non-fasting) (09/01/2017 3:15 PM EST) [facility] Glucose 119 65 - 199 mg/dL [facility] Comment:Diabetes: >=200 mg/d L plus symptoms Blood Urea Nitrogen 21(H) 10 - 20 mg/dL [facility] Creatinine 1.12 0.80 - 1.50 mg/dL [facility] Sodium 141 135 - 145 mmol/L [facility] Potassium 3.9 3.5 - 5.0 mmol/L [facility] Comment: Please note: ??Patients with WBC >100,000 may have falsely elevated Potassium levels. ??For accurate Potassium quantification in these patients send serum separator tube (gold top) for subsequent determinations. ??Contact the Clinical Chemistry Laboratory if there are any questions. Chloride 103 98 - 107 mmol/L [facility] Carbon Dioxide 24 22 - 31 mmol/L [facility] Anion Gap 14 5 - 15 mmol/L [facility] Calcium 10.1 8.5 - 10.5 mg/dL [facility] Est Glomerular Filtration Rate >60 >=60 [facility] Comment: The reported eGFR should be multiplied by 1.2 for patients. The MDRD is not an appropriate measure of renal function for patients with body mass extremes or in patients with acute kidney failure. http://[place]/DHnkdep http://[place]/DHMCnkf Blood specimen (specimen) 09/01/2017 3:15 PM EST 09/01/2017 3:30 PM EST Narrative Resulting Agency Comment Spec In Lab Pablo Govea MD CHEMISTRY ORDERABLE S Performing Organization Address City/[facility] Co de Phone Number [facility] [place] [place] [address] * EKG 12 Lead (09/01/2017 9:11 AM EST) Ventricular rate 78 BPM MUSE SYSTEM Atrial Rate 78 BPM MUSE SYSTEM P-R Interval 240 ms MUSE SYSTEM QRS Duration 94 ms MUSE SYSTEM Q-T Interval 408 ms MUSE SYSTEM QTC Calculated (Bezet) 465 ms MUSE SYSTEM Calculated P [place] 56 degrees MUSE SYSTEM Calculated R [place] 43 degrees MUSE SYSTEM Calculated T [place] -2 degrees MUSE SYSTEM INTERPRETATION Sinus rhythm with 1st degree A-V block Nonspecific ST and T wave abnormality Abnormal ECG No previous ECGs available I personally reviewed the tracing and edited the fellows interpretation Confirmed by fellow MD Don, Grant ([id number]) on 09/01/2017 11:44:57 AM Confirmed by MD AFSHAN, ISABEL ([id number]) on 09/02/2017 3:03:24 PM MUSE SYSTEM 09/01/2017 9:11 AM EST 09/02/2017 3:03 PM EST Brianna Brock MD ECG ORDERABLES Performing Organization Address City/[facility]/ZIP Co de Phone Number MUSE SYSTEM documented in this encounter Visit Diagnoses Diagnosis Abnormal stress test Other nonspecific abnormal cardiovascular system function study LOYOLA (dyspnea on exertion) Other dyspnea and respiratory abnormality Atherosclerosis of [place] coronary artery of [place] heart with angina pectoris LOYOLA (dyspnea on [...] RN) documented in this encounter Care Teams Research And Evaluation Manager Relationship Specialty Start Date End Date Devorah Epstein MD [address] [place] [address] PCP - General Family Medicine 09/01/17 documented as of this encounter
--- OUTSIDE RECORDS SUMMARY | 2024-04-29 19:15 | XMS_ITS | Encounter Summary ---
[place] [address] Care Team Providers Care Dye Winch Operator Name Role Phone Devorah Epstein MD Primary Care Provider [phone] Encounter Details Date Type Department Care Team (Late st Contact Info) Description 09/01/2017 2:20 PM EST Clinical Support [place] [phone] Social History Tobacco Use Types Packs/Day Years [...] AM EST Hospital Encounter Non-[place] [address] Arrived documented as of this encounter Visit Diagnoses Not on filedocumented in this encounter Care Teams Dye Winch Operator Relationship Specialty Start Date End Date Devorah Epstein MD [address] [place] [address] PCP - General Family Medicine 09/01/17 documented as of this encounter
--- OUTSIDE RECORDS SUMMARY | 2024-04-29 19:15 | XMS_ITS | Encounter Summary ---
[place] [address] Care Team Providers Care Commander [employer] Name Role Phone Devorah Epstein MD Primary Care Provider [phone] Reason for Visit * Auth/Cert Specialty Diagnoses / Procedures Referred By Binh taylor Referred To Contact Diagnoses Atherosclerosis of [place] coronary artery of [place] heart with angina pectoris cad UNKNOWN Procedures PRO CABG, ARTERIAL, SINGLE PRO CABG, ARTERY-VEIN, SINGLE PRO ENDOSCOPY W/VIDEO-ASST VEIN HARVEST, CABG @CABG, USING ARTERIAL GRAFT;SINGLE ARTERIAL GRAFT (WRVU 33.75) @CABG, VENOUS & ARTERIAL GRAFT;SINGLE VEIN GRAFT (WRVU 3.61) ENDOSCOPIC HARVEST VEIN(S) FOR CABG (WRVU 0.31) Referral ID Status Reason Start Date Expiration Date Visits Re quested Visits Authorized [id number] 1 1 Encounter Details Date Type Department Care Team (Late st Contact Info) Description 09/11/2017 7:30 AM EDT - 09/11/2017 11:43 AM EDT [place] [id number] Pablo Govea MD @CABG, USING ARTERIAL GRAFT;SINGLE ARTERIAL GRAFT (WRVU [...] this encounter Discharge Summaries * Flower Smith, BUSINESS ADMINISTRATION INSTRUCTOR - 09/15/2017 9:27 AM EDT Inpatient - Discharge Summary Patient Name: Keegan Cabrera Patient Age: 77 y.o. Birthdate: 1940 Language: Tajik Race: White Ethnicity: Not nor Admit Date: 09/11/2017 Discharge Date: 09/15/2017 Attending Physician: Pablo Govea MD Follow-up Recommendations for Providers: Please continue routine management of cardiovascular risk factors including blood pressure, lipids,glucose, etc. Please note any changes to medications. Patient to follow-up with PCP, Devorah Epstein MD, in 1-2 weeks. Patient to follow-up with Maintenance Mechanic Technician, Dr. Marie, in two weeks. Patient to follow-up with Cardiac Surgery, Dr. Pablo Govea, in ~ 4 weeks with CXR, EKG. Inpatient Provider Contact Information: [facility] Section of Cardiac Surgery [facility] [address] FAX [phone] Discharge Diagnoses (Hospital Problems) Primary Diagnoses: CAD [...] 33.75) performed by Pablo Govea MD at [facility] MAIN OR ??? PRO CABG, ARTERY-VEIN, SINGLE N/A 09/11/2017 @CABG, VENOUS & ARTERIAL GRAFT;SINGLE VEIN GRAFT (WRVU 3.61) performed by Pablo Govea MD at [facility] MAIN OR ??? PRO ENDOSCOPY W/VIDEO-ASST VEIN HARVEST, CABG Right 09/11/2017 ENDOSCOPIC HARVEST VEIN(S) FOR CABG (WRVU 0.31) performed by Pablo Govea MD at [facility] MAIN OR Prior To Admission Medications Prescriptions [...] who had a stress test done at [facility] that revealed moderate risk for a cardiac [...] Hospital Course: Keegan Cabrera was admitted to [facility] on 09/11/2017via the Same Day Program. [...] Pablo Govea and/or the Cardiac Surgery Physician Pizza Baker Team may be reached at . Weight: [...] Dr. Pablo Swenson. You may use a [place] Track or treadmill but avoid any pulling [...] friends, go to a movie, go to denominational, etc. Heavy activities: No hunting, skiing, jogging, snow shoveling, snowmobiling, lawn mowing, swimming,golf or tennis until after your return appointment with the surgeon. Do not ride motorcycles, ATSquidbid'stractors or horses. Avoid the use of a [...] should resume a low fat, low cholesterol, [place] Heart [employer] Diet Driving: No driving until [...] in 1-2 weeks. Patient to follow-up with Maintenance Mechanic Technician, Dr. Marie, in two weeks. Patient to follow-up with Cardiac Surgery, Dr. Pablo Govea, in ~ 4 weeks with CXR, EKG. Cardiac Rehabilitation: Keegan Cabrera was seen today regarding participation in the outpatientPhase 2 Cardiac Rehabilitation at [facility] . The patient agrees to a referral to this program. The referral will be sent at discharge and the patient should be contacted by the Program within 1- 2 weeks from discharge. Future Appointments and Orders Future Orders Complete By Expires XR Chest PA & Lateral (Generic) [[id number] Custom] 09/16/2017 03/18/2018 Process Instructions: Scheduling Instructions: Questions: Where will study be performed?: [place] [facility] Portable exam?: Reason for exam and clinical history: s/p cabg Other pertinent information: Stat read required?: Date of injury if applicable: Requested Time: EKG 12 Lead [EKG1 Custom] As directed Process Instructions: Scheduling Instructions: Questions: Which DH location will this be performed?: [place] Is a rhythm strip needed?: No If EKG Reason is Pre-op Evaluation, indicate diagnosis for surgery.: Referral to Cardiac Rehab [QVB509 Custom] As directed Process Instructions: If no progress note charted, please enter Clinical details in comments. Scheduling Instructions: Questions: My question or request is: s/p CABG. Cardiac rehab at [facility]. Referral to Home Health - at DISCHARGE [EAP6321 CPT(R)] As directed Process Instructions: Scheduling Instructions: Comments: DOCUMENTATION FOR VNA SERVICES (INCLUDING THOSE PATIENTS WITH MEDICARE COVERAGE REQUIRING HOME VNA SERVICES AND/OR HOSPICE SERVICES) PATIENT'S LOCATION: Keegan Cabrera [address] [place] [address] (home) Telephone Information: Metal Mockup Maker's Name: self In discussion with the attending physician, it is certified that this patient is under their care and that they, or a Nurse Practitioner, or Physician Pizza Baker who is working directly with them, hada [...] for services as follows: HOME HEALTH AGENCY: [facility] PHONE: [phone] FAX: [phone] RN orders: Cardiopulmonary assessment, incisional assessment, assess [...] issues please call the Cardiac SurgeryOffice at [phone] FOR MEDICARE ONLY: (please delete this section [...] OR AFTER 09/21/17 Signed: FLOWER SMITH APRN [facility] Section of Cardiac Surgery [facility] [address] FAX [phone] Date: 09/15/2017 CC: MD Lucian Henry Dana C, MD [address] [place], [place] [address]HENRY MAY [address] [address] documented in this encounter Discharge Instructions * [...] Thomas. Jeferson and/or the Cardiac Surgery Physician Pizza Baker Team may be reached at . ?? [...] Dr. Pablo Swenson. You may use a [place] Track or treadmill but avoid any pulling [...] friends, go to a movie, go to denominational, etc. ?? Heavy activities: No hunting, skiing, [...] should resume a low fat, low cholesterol, [place] Heart [employer] Diet ?? Driving: No driving [...] 1-2 weeks. ?? Patient to follow-up with Maintenance Mechanic Technician, Dr. Marie, in two weeks. ?? Patient to follow-up with Cardiac Surgery, Dr. Pablo Govea, in ~ 4 weeks with CXR, EKG. ?? Cardiac Rehabilitation: Keegan Cabrera??was seen today regarding participation in the outpatient Phase 2 Cardiac Rehabilitation at [facility]??Hospital . ?? The patient agrees to [...] Recommendations Ambulated in sebastian 3-4x/day with FWW DENVER JackmanA Pager: [phone] Inpatient Physical Therapy SPTA observed while treating patient and POC and Rx discussed prior to Rx. Joan Garza PTA Pager: [phone] 09/15/17 0922 Rehab Evaluation Document Type therapy note (daily [...] Assessment/Treatment (Group);Transfer Assessment/Treatment (Group) Bed Mobility Assessment/Treatment Ddrlwi-dg-Uut [place] (Bed Mobility) independent Mmw-he-Szfobs [place] (Bed Mobility) independent Comment (Bed Mobility) HOB elevated, pt has bed features at home Transfer Assessment/Treatment [place] (Sit-Stand Transfers) independent [place] (Stand-Sit Transfers) independent Dop-Rixua-Sqt Assistive Device (Transfers) rolling walker Comment (Transfers) no LOB, up from recliner and EOB Gait Assessment/Treatment [place] (Gait) conditional independence Assistive Device (Gait) rolling walker Distance in Feet (Gait) 160 Gait Pattern Analysis swing-through gait Deviations (Gait) step length decreased Comment (Gait) decreased gait speed due to R knee discomfort Stairs Assessment/Treatment Number of Stairs (Stairs) 1 Handrail Location (Stairs) left side (ascending) [place] (Stairs) supervision required Technique (Stairs) tdqb-nw-tihl (ascending);iemg-ab-wcqb (descending) Comment (Stairs) no LOB, good control Plan of Care Review Plan Of Care Reviewed With patient;family Progress progress toward functional goals as expected Bed Mobility Goal Bed Mobility Goal, Date Established 09/13/17 Bed Mobility Goal, Time to Achieve 5 days Bed Mobility Goal, Activity Type supine to sit/sit to supine Bed Mobility Goal, [place] Level independent Bed Mobility Goal, Outcome Achieved goal met Gait Training Goal Gait Training Goal, Date Established 09/13/17 Gait Training Goal, Time to Achieve 5 days Gait Training Goal, [place] Level conditional independence Gait Training Goal, Assist Device (LRD) Gait Training Goal, Distance to Achieve 300ft Gait Training Goal, Additional Goal Pt up and down 1 step without rail and supervision Gait Training Goal, Outcome goal partially met Transfer Training Goal Transfer Training Goal, Date Established 09/13/17 Transfer Training Goal, Time to Achieve 5 days Transfer Training Goal, Activity Type web-oi-ggiie/mygfv-kr-moz;qic-ei-bgxvf/gogzj-ho-ufa Transfer Train Goal, [place] Level conditional independence Transfer Training Goal, Assist [...] Hood RN - 09/14/2017 1:47 PM EDT MATERIALS MGMT TECH Flower notified, pt had a 10 beat run of Vtach, asymptomatic, VSS. Magnesium given, will continue to monitor. * Flower Smith APRN - 09/14/2017 9:08 AM EDT Cardiac Surgery Progress Note: ID: [id number] POD #3, s/p CABG x 2. Pmhx: [...] Dispo:[facility] Attending Surgeon on rounds. FLOWER REILLYFIELD, BUSINESS ADMINISTRATION INSTRUCTOR Date: 09/14/2017 * Vaishali Escobar RN - 09/14/2017 8:24 AM EDT The patient/sales and marketing representative has been provided a list of Home Health Agencies/DME vendors which servetheir preferred geographic area. A letter describing our affiliations was reviewed with them and they were educated about their right to choose where referrals are placed. Patient requests referral to [facility] [employer]. PHONE: [phone] FAX: [phone] Expected date of discharge: 09/15/17 Referral routed to the Sales Attendant Building Materials for matching with agency/vendor and to provide [...] AM EDT Cardiac Surgery Progress Note: ID: [id number] POD #2, s/p CABG x 2. Pmhx: [...] : urine clear yellow Incisions:sternotomy dressing CDI Tubes/Lines/Drains:Srinivasa CAMPBELL LABS: Recent Labs 09/12/17 0425 09/11/17 [...] Pathway. Hematuria has resolved. Will d/c srinivasa today, d/c pw. Increase bb to 25 [...] Dispo:[facility] Attending Surgeon on rounds. FLOWER SMITH, BUSINESS ADMINISTRATION INSTRUCTOR Date: 09/13/2017 * Mona Nix RCP - 09/13/2017 5:09 AM EDT Pt compliant with home NIV overnight. Will continue to monitor pt. * Analia Shannon APRN - 09/12/2017 9:42 AM EDT Cardiac Surgery Progress Note: ID: [id number] POD #1, s/p CABG x 2. Pmhx: [...] Surgeon on rounds. Signed: Analia Shannon APRN [facility] Section of Cardiac Surgery Date: 09/12/2017 * Ju Witt, [facility] - 09/11/2017 12:45 PM EDT AMV Protocol: [...] who had a stress test done at [facility] that revealed moderate risk for a cardiac [...] there is no significant disease read bythe lead developer. ?? Impression 77-year-old gentleman who is a [...] 30 minute visit 20 minutes were spent bfqw-my-yfmz discussing the risks and benefits of CABG surgery ? * Pablo Govae MD - 09/11/2017 7:04 AM EDT This is a patient of Dr. Marie that we are seeing for consideration of CABG surgery. ?? This is a 77-year-old male who had been having symptoms of dyspnea on exertion who had a stress test done at [facility] that revealed moderate risk for a cardiac [...] there is no significant disease read bythe lead developer. ?? Impression 77-year-old gentleman who is a [...] 30 minute visit 20 minutes were spent cpvp-yi-lhie discussing the risks and benefits of CABG [...] fair -- Goal: Fall Prevention-Safe Patient Handling 09/13/17203609/14/176 09/14/172138 Daily Care Interventions Self-Care Promotion independence [...] baseline level of independence. Pt was indep ROSE GRADER and anticipate he will make gains with mobility and be safe for home d/c once medically ready. Pt would benefit from ongoing physical therapy interventions. Staff Mobility Recommendations Ambulate 4x/daily with nursing, 1 assist, rolling walker GIOVANNA ABREU, PT Pager: [phone] Inpatient Physical Therapy 09/13/17 1035 Rehab Evaluation [...] threshold step to enter. Pt was indep ROSE GRADER, He is indep wihtout a device. He [...] Gait Assessment/Treatment (Group);Transfer Assessment/Treatment (Group) Transfer Assessment/Treatment [place] (Sit-Stand Transfers) contact guard assist;verbal cues required [place] (Stand-Sit Transfers) contact guard assist Fnq-Ohsrx-Fga Assistive Device (Transfers) rolling walker Gait Assessment/Treatment [place] (Gait) contact guard assist Assistive Device (Gait) [...] to sit/sit to supine Bed Mobility Goal, [place] Level independent Gait Training Goal Gait Training Goal, Date Established 09/13/17 Gait Training Goal, Time to Achieve 5 days Gait Training Goal, [place] Level conditional independence Gait Training Goal, Assist Device (LRD) Gait Training Goal, Distance to Achieve 300 ft Gait Training Goal, Additional Goal Pt up and down 1 step without rail with supervision Transfer Training Goal Transfer Training Goal, Date Established 09/13/17 Transfer Training Goal, Time to Achieve 5 days Transfer Training Goal, Activity Type rbm-lz-tpjko/dulwh-wn-vuc;pwt-ny-flhgv/qsfat-th-uvo Transfer Train Goal, [place] Level conditional independence Transfer Training Goal, Assist [...] List Diagnosis Code ??? Atherosclerosis of [place] coronary artery of [place] heart with angina pectoris I25.119 Additional personal [...] Hamlin RN - 09/13/2017 12:15 PM EDT [facility]IL[facility] Keegan Cabrera was seen today regarding participation in the outpatient Phase 2 Cardiac Rehabilitation at [facility] . The patient agrees to a referral [...] (Interventions Implemented as Appropriate) 09/12/17 2130 09/13/17 0107 Coping/Psychosocial Plan Of Care Reviewed With patient -- Plan of Care Review Progress -- progress toward functional goals as expected OUTCOME EVALUATION NOTE: OUTCOME SUMMARY: No acute complications overnight. Patient complained of chest tightness at beginning of shift, MATERIALS MGMT TECH Shiva notified. Tello catheter draining brown/tea colored [...] Health/Prescription Coverage: Primary Insurance: MEDICARE Secondary Insurance: [employer] Prescription Coverage: yes Preferred Pharmacy: [facility] Primary Care Provider: Devorah Epstein MD [phone] Patient/Caregiver Goals of Treatment: discharge to home [...] of care planning. Vaishali Escobar RN Pager: [phone] * Plan of Care - Lenora Ibrahim [...] monitor urine output. 0630: No urine output [id number]. Bladder scan yield 64cc. C/o need to [...] 100% AAI paced at 80 b/min, [place] rhythm is sinus jasmeet with pauses 50-70. [...] 11:01 AM EDT 09/11/2017 Keegan Cabrera 1940 [id number] Preoperative Diagnosis: Coronary artery disease Stable Angina Postoperative Diagnosis: Coronary artery diseaseStable Angina Procedure: CABG times 2: ALFREDO to LAD, SVG to om. Endoscopic vein harvest Surgeon: Pablo Govea M.D. Pizza Baker: ashwin flores Anesthesia: General endotracheal anesthesia Drains: [...] the medial aspect of the knee. The KeynoirView XB7 system was used to dissect out [...] applied. The patient was transported to the [facility] on levo. All counts were correct. * OR Attestation - Pablo Govea MD - 09/11/2017 10:55 AM EDT Attestation: Case Date: 09/11/2017 I performed this procedure without the involvement of a resident. Pablo Govea MD 09/11/2017 * Brief Op Note - Pablo Govea MD - 09/11/2017 10:54 AM EDT Brief Operative Note Patient Name: Keegan Cabrera : [id number] MR#: [id number] Case Date: 09/11/2017 Surgeon: Surgeon(s) and Role: * Pablo Govea MD - Primary * David Green PA - Physician Pizza Baker Preoperative diagnosis: cad Postoperative diagnosis: cad Procedure: [...] AM EST Hospital Encounter Non[place] [address] Arrived Scheduled Orders Name Type Priority Associated [...] Comments LAB SCAN 09/18/2017 12:00 AM EDT OTHER WOOD PROCESSING MACHINE OPERATOR SCAN 09/18/2017 12:00 AM EDT POTASSIUM Routine [...] Routine 09/12/2017 4:25 AM EDT CARDIAC ENZYMES ([facility]) Routine 09/12/2017 4:25 AM EDT CREATININE Routine [...] 09/11/2017 7:24 AM EDT Atherosclerosis of [place] coronary artery of [place] heart with angina pectoris @CABG, VENOUS & ARTERIAL GRAFT;SINGLE VEIN GRAFT (WRVU 3.61) 09/11/2017 7:24 AM EDT Atherosclerosis of [place] coronary artery of [place] heart with angina pectoris @CABG, USING ARTERIAL GRAFT;SINGLE ARTERIAL GRAFT (WRVU 33.75) 09/11/2017 7:24 AM EDT Atherosclerosis of [place] coronary artery of [place] heart with angina pectoris PREPARE RBC STAT [...] [facility], at10/17/2017 3:01 PM Flower Smith QI IMG DX ORDERABLES * SCAN DOC: LAB (09/18/2017 12:00 AM EDT) Narrative 09/18/2017 12:00 AM EDT Ordered by an unspecified provider. Scanning Provider MEDIA MGR SCAN EXT O RDR/RSLT * SCAN DOC: OTHER WOOD PROCESSING MACHINE OPERATOR (09/18/2017 12:00 AM EDT) Anatomical Region Laterality Modality Other Narrative 09/18/2017 12:00 AM EDT Ordered by an unspecified provider. Scanning Provider MEDIA MGR SCAN EXT O RDR/RSLT * Potassium (09/15/2017 4:43 AM EDT) Potassium 3.5 3.5 - 5.0 mmol/L [facility] Lab Analia Shannon APRN CHEMISTRY ORDERABL ES [facility] [place] [address] * XR Chest PA & Lateral (Generic) [...] and associated atelectasis.No pneumothorax. The cardiomediastinal silhouette, ah, and pulmonaryvascular markings are within normal limits. [...] 4:15 AM EDT) Neutrophil % 73.5 % [facility] Neutrophil Absolute 4.13 1.70 - 6.10 x10(3)/mc L [facility] Lymph % 14.6 % [facility] Lymphocytes Abs 0.8(L) 0.9 - 3.2 x10(3)/[facility] Monocyte % 9.8 % [facility] Monocyte Abs 0.6 0.3 - 0.9 x10(3)/[facility] Eos % 1.2 % [facility] Eosinophils Abs 0.1 0.0 - 0.4 x10(3)/[facility] Basophil % 0.2 % [facility] Baso Absolute 0.0 0.0 - 0.1 x10(3)/[facility] Immature Gran % 0.70 % [facility] Comment: Immature granulocytes(IG's)percentage and absolute count will include metamyelocytes, myelocytes, and promyelocytes. Blood smears from CBCs yielding IG's will be scanned manually for concordance. If this scan disagrees with the automated IG or if promyelocytes are noted, a manual differential will be performed. Immature Gran Absolute 0.04 0.00 - 0.04 x10(3)/[facility] Blood specimen (specimen) 09/14/2017 4:15 AM EDT 09/14/2017 4:21 AM EDT Narrative Resulting Agency Comment Spec In Lab Analia Shannon APRN HEMATOLOGY ORDERAB LES [facility] [place] [address] * (ABNORMAL) Hemogram (09/14/2017 4:15 AM EDT) White Blood Cell 5.6 4.0 - 9.5 x10(3)/[facility] Red Blood Cell 3.49(L) 4.58 - 5.54 x10(6)/[facility] Hemoglobin 10.5(L) 13.7 - 16.5 gm/dL [facility] Hematocrit 31.2(L) 40.5 - 48.5 % [facility] Mean Cell Volume 89.4 82.9 - 93.1 fL [facility] Mean Cell Hemoglobin 30.1 27.5 - 32.1 pg [facility] Mean Cell Hemoglobin Concentration 33.7 32.0 - 35.7 gm/dL [facility] Platelet 114(L) 145 - 357 x10(3)/mc L [facility] RDW Standard Deviation 43.9 36.0 - 45.0 fL [facility] RDW coefficient of variation 13.4 11.4 - 13.8 % [facility] Mean Platelet Volume 9.6 7.6 - 12.9 fL [facility] NRBC% auto 0.0 % [facility] NRBC Absolute 0.000 0.000 - 0.000 x10(3)/mc L [facility] Blood specimen (specimen) 09/14/2017 4:15 AM EDT 09/14/2017 4:21 AM EDT Narrative Resulting Agency Comment Spec In Lab Analia Shannon APRN HEMATOLOGY ORDERAB LES [facility] [place] [address] * (ABNORMAL) Basic Metabolic Panel (non-fasting) (09/14/2017 4:15 AM EDT) Glucose 157 65 - 199 mg/dL [facility] Comment:Diabetes: >=200 mg/d L plus symptoms Blood Urea Nitrogen 27(H) 10 - 20 mg/dL [facility] Creatinine 1.19 0.80 - 1.50 mg/dL [facility] Sodium 138 135 - 145 mmol/L [facility] Potassium 3.4(L) 3.5 - 5.0 mmol/L [facility] Comment: Please note: ??Patients with WBC >100,000 may have falsely elevated Potassium levels. ??For accurate Potassium quantification in these patients send serum separator tube (gold top) for subsequent determinations. ??Contact the Clinical Chemistry Laboratory if there are any questions. Chloride 102 98 - 107 mmol/L [facility] Carbon Dioxide 25 22 - 31 mmol/L [facility] Anion Gap 11 5 - 15 mmol/L [facility] Calcium 8.6 8.5 - 10.5 mg/dL [facility] Est Glomerular Filtration Rate 59(L) >=60 [facility] Comment: The reported eGFR should be multiplied by 1.2 for patients. The MDRD is not an appropriate measure of renal function for patients with body mass extremes or in patients with acute kidney failure. http://intelworks/DHnkdep http://intelworks/DHMCnkf Blood specimen (specimen) 09/14/2017 4:15 AM EDT 09/14/2017 4:21 AM EDT Narrative Resulting Agency Comment Spec In Lab Analia Shannon APRN CHEMISTRY ORDERABL ES [facility] [place] [address] * POCT Glucose (09/13/2017 7:40 AM EDT) Glucose, POC 144 65 - 199 mg/dL [facility] Comment: Supplemental ranges: <140 mg/dL before meals <180 mg/dL all other times of the day Blood specimen (specimen) 09/13/2017 7:40 AM EDT 09/13/2017 7:40 AM EDT Pablo Govea MD POINT OF CARE TEST ORDERABLES [facility] [place] [address] * Potassium (09/13/2017 3:38 AM EDT) Potassium 4.1 3.5 - 5.0 mmol/L [facility] [...] APRN CHEMISTRY ORDERABL ES Performing Organization Address City/[facility] Co de Phone Number [facility] [place] [address] * POCT Glucose (09/12/2017 8:54 PM EDT) Glucose, POC 141 65 - 199 mg/dL [facility] Comment: Supplemental ranges: <140 mg/dL before meals <180 mg/dL all other times of the day Blood specimen (specimen) 09/12/2017 8:54 PM EDT 09/12/2017 8:54 PM EDT Pablo Govea MD POINT OF CARE TEST ORDERABLES Performing Organization Address [facility] Co de Phone Number [facility] [place] [address] * POCT Glucose (09/12/2017 4:15 PM EDT) Glucose, POC 139 65 - 199 mg/dL [facility] Comment: Supplemental ranges: <140 mg/dL before meals <180 mg/dL all other times of the day Blood specimen (specimen) 09/12/2017 4:15 PM EDT 09/12/2017 4:15 PM EDT Pablo Govea MD POINT OF CARE TEST ORDERABLES Performing Organization Address [facility] Co de Phone Number [facility] [place] [address] * POCT Glucose (09/12/2017 11:39 AM EDT) Glucose, POC 122 65 - 199 mg/dL [facility] Comment: Supplemental ranges: <140 mg/dL before meals <180 mg/dL all other times of the day Blood specimen (specimen) 09/12/2017 11:39 AM EDT 09/12/2017 11:39 AM EDT Pablo Govea MD POINT OF CARE TEST ORDERABLES Performing Organization Address City/[facility]/ZIP Co de Phone Number [facility] [place] [address] * POCT Glucose (09/12/2017 10:05 AM EDT) Glucose, POC 135 65 - 199 mg/dL [facility] Comment: Supplemental ranges: <140 mg/dL before meals <180 mg/dL all other times of the day Blood specimen (specimen) 09/12/2017 10:05 AM EDT 09/12/2017 10:05 AM EDT Pablo Govea MD POINT OF CARE TEST ORDERABLES Performing Organization Address City/[facility]/ZIP Co de Phone Number [facility] [place] [address] * POCT Glucose (09/12/2017 7:47 AM EDT) Glucose, POC 143 65 - 199 mg/dL [facility] Comment: Supplemental ranges: <140 mg/dL before meals <180 mg/dL all other times of the day Blood specimen (specimen) 09/12/2017 7:47 AM EDT 09/12/2017 7:47 AM EDT Pablo Govea MD POINT OF CARE TEST ORDERABLES Performing Organization Address City/[facility]/ZIP Co de Phone Number [facility] [place] [address] * (ABNORMAL) Differential, Automated (09/12/2017 4:25 AM EDT) Neutrophil % 82.3 % [facility] Neutrophil Absolute 4.63 1.70 - 6.10 x10(3)/[facility] LAB[facility] Lymph % 7.3 % [facility] Lymphocytes Abs 0.4(L) 0.9 - 3.2 x10(3)/[facility]ORY Monocyte % 9.8 % [facility] Monocyte Abs 0.6 0.3 - 0.9 x10(3)/[facility] Eos % 0.0 % [facility] Eosinophils Abs 0.0 0.0 - 0.4 x10(3)/[facility] Basophil % 0.2 % [facility] Baso Absolute 0.0 0.0 - 0.1 x10(3)/[facility] Immature Gran % 0.40 % [facility] Comment: Immature granulocytes(IG's)percentage and absolute count will include metamyelocytes, myelocytes, and promyelocytes. Blood smears from CBCs yielding IG's will be scanned manually for concordance. If this scan disagrees with the automated IG or if promyelocytes are noted, a manual differential will be performed. Immature Gran Absolute 0.02 0.00 - 0.04 x10(3)/[facility] LAB[facility]ORY Blood specimen (specimen) 09/12/2017 4:25 AM EDT 09/12/2017 4:39 AM EDT Narrative Resulting Agency Comment Spec In Lab David YE HEMATOLOGY ORDER KARENA [facility] [place] [address] * (ABNORMAL) Hemogram (09/12/2017 4:25 AM EDT) White Blood Cell 5.6 4.0 - 9.5 x10(3)/[facility] Red Blood Cell 3.56(L) 4.58 - 5.54 x10(6)/[facility] Hemoglobin 10.7(L) 13.7 - 16.5 gm/dL [facility] Hematocrit 31.8(L) 40.5 - 48.5 % [facility] Mean Cell Volume 89.3 82.9 - 93.1 fL [facility] Mean Cell Hemoglobin 30.1 27.5 - 32.1 pg [facility] Mean Cell Hemoglobin Concentration 33.6 32.0 - 35.7 gm/dL [facility] Platelet 113(L) 145 - 357 x10(3)/mc L [facility] RDW Standard Deviation 44.1 36.0 - 45.0 [facility] RDW coefficient of variation 13.5 11.4 - 13.8 % [facility] Mean Platelet Volume 9.7 7.6 - 12.9 fL [facility] NRBC% auto 0.0 % [facility] NRBC Absolute 0.000 0.000 - 0.000 x10(3)/mc L [facility] Blood specimen (specimen) 09/12/2017 4:25 AM EDT 09/12/2017 4:39 AM EDT Narrative Resulting Agency Comment Spec In Lab David YE HEMATOLOGY ORDER KARENA Performing Organization Address City/[facility]/ZIP Co de Phone Number [facility] [place] [address] * POCT Glucose (09/12/2017 4:25 AM EDT) Glucose, POC 155 65 - 199 mg/dL [facility] Comment: Supplemental ranges: <140 mg/dL before meals <180 mg/dL all other times of the day Blood specimen (specimen) 09/12/2017 4:25 AM EDT 09/12/2017 4:25 AM EDT Pablo Govea MD POINT OF CARE TEST ORDERABLES Performing Organization Address City/[facility]/ZIP Co de Phone Number [facility] [place] [address] * (ABNORMAL) Electrolytes panel (09/12/2017 4:25 AM EDT) [facility] Sodium 139 135 - 145 mmol/L [facility] Potassium 4.0 3.5 - 5.0 mmol/L [facility] Comment: Please note: ??Patients with WBC >100,000 may have falsely elevated Potassium levels. ??For accurate Potassium quantification in these patients send serum separator tube (gold top) for subsequent determinations. ??Contact the Clinical Chemistry Laboratory if there are any questions. Chloride 107 98 - 107 mmol/L [facility] Carbon Dioxide 21(L) 22 - 31 mmol/L [facility] Anion Gap 11 5 - 15 mmol/L [facility] Blood specimen (specimen) 09/12/2017 4:25 AM EDT 09/12/2017 4:40 AM EDT Narrative Resulting Agency Comment Spec In Lab Pablo Govea MD CHEMISTRY ORDERABLE S [facility] [place] [address] * (ABNORMAL) Cardiac Enzymes (LEB/CGP) (09/12/2017 4:25 AM EDT) [facility] Troponin-T 0.13(H) 0.00 - 0.00 ng/mL [facility] Comment: The 99th percentile for Troponin T is less than 0.01 ng/mL, any detectable cTnT concentration using this assay should be considered elevated. According to the third universal definition of myocardial infarction the following criteria with a clinical presentation consistent with acute myocardial ischemia meets the diagnosis for a myocardial infarction (AR). Detection of a rise and/or fall of cTnT, with at least one value greater than the 99th percentile (> or = 0.01) and with at least one of the following ?? Symptoms of ischemia ?? New or presumed new significant DZ-atbmpxx-T wave (ST-T) changes or new left bundle [...] additional sample may be indicated. Reference: Third S [place] Definition of Myocardial Infarction. Journal of the [place] [employer] 2012;60:1581-98 Creatine Kinase 290(H) 0 - 200 unit/L [facility] Blood specimen (specimen) 09/12/2017 4:25 AM EDT 09/12/2017 4:39 AM EDT Narrative Resulting Agency Comment Spec In Lab Pablo Govea MD CHEMISTRY ORDERABLE S Performing Organization Address [facility] de Phone Number [facility] [place] [address] * Potassium (09/12/2017 4:25 AM EDT) Potassium 4.0 3.5 - 5.0 mmol/L [facility] MD CHEMISTRY ORDERABLE S Performing Organization Address [facility] de Phone Number [facility] [place] [address] * (ABNORMAL) Glucose, fasting (09/12/2017 4:25 AM EDT) Glucose Fasting 155(H) 65 - 99 mg/dL [facility] Comment: ?Fasting* Glucose Interpretive Criteria [...] of Diabetes Mellitus, Position Statement from the [place] [employer]. ??Diabetes Care, Volume 33, Supplement 1, Jun 2009 Blood specimen (specimen) 09/12/2017 4:25 AM EDT 09/12/2017 4:39 AM EDT Narrative Resulting Agency Comment Spec In Lab Pablo Govea MD CHEMISTRY ORDERABLE S Performing Organization Address [facility] de Phone Number [facility] [place] [address] * Creatinine (09/12/2017 4:25 AM EDT) Creatinine 1.13 0.80 - 1.50 mg/dL [facility] Est Glomerular Filtration Rate >60 >=60 [facility] Comment: The reported eGFR should be multiplied by 1.2 for patients. The MDRD is not an appropriate measure of renal function for patients with body mass extremes or in patients with acute kidney failure. http://[employer]DHnkdep http://[employer] )/DHMCnkf Blood specimen (specimen) 09/12/2017 4:25 AM EDT 09/12/2017 4:39 AM EDT Narrative Resulting Agency Comment Spec In Lab Pablo Govea MD CHEMISTRY ORDERABLE S Performing Organization Address [facility] Co de Phone Number [facility] [place] [address] * (ABNORMAL) BUN (09/12/2017 4:25 AM EDT) Blood Urea Nitrogen 21(H) 10 - 20 mg/dL [facility] Blood specimen (specimen) 09/12/2017 4:25 AM EDT 09/12/2017 4:39 AM EDT Narrative Resulting Agency Comment Spec In Lab Pablo Govea MD CHEMISTRY ORDERABLE S [facility] [place] [address] * POCT Glucose (09/12/2017 2:16 AM EDT) Glucose, POC 139 65 - 199 mg/dL [facility] Comment: Supplemental ranges: <140 mg/dL before meals <180 mg/dL all other times of the day Blood specimen (specimen) 09/12/2017 2:16 AM EDT 09/12/2017 2:16 AM EDT Pablo Govea MD POINT OF CARE TEST ORDERABLES Performing Organization Address City/[facility]/ZIP Co de Phone Number [facility] [place] [address] * POCT Glucose (09/11/2017 11:31 PM EDT) Glucose, POC 156 65 - 199 mg/dL [facility] Comment: Supplemental ranges: <140 mg/dL before meals <180 mg/dL all other times of the day Blood specimen (specimen) 09/11/2017 11:31 PM EDT 09/11/2017 11:31 PM EDT Pablo Govea MD POINT OF CARE TEST ORDERABLES [facility] [place] [address] * POCT Glucose (09/11/2017 7:05 PM EDT) Glucose, POC 145 65 - 199 mg/dL [facility] Comment: Supplemental ranges: <140 mg/dL before meals <180 mg/dL all other times of the day Blood specimen (specimen) 09/11/2017 7:05 PM EDT 09/11/2017 7:05 PM EDT Pablo Govea MD POINT OF CARE TEST ORDERABLES Performing Organization Address [facility]/ZIP Co de Phone Number [facility] [place] [address] * POCT Glucose (09/11/2017 5:58 PM EDT) Glucose, POC 157 65 - 199 mg/dL [facility] Comment: Supplemental ranges: <140 mg/dL before meals <180 mg/dL all other times of the day Blood specimen (specimen) 09/11/2017 5:58 PM EDT 09/11/2017 5:58 PM EDT Pablo Govea MD POINT OF CARE TEST ORDERABLES Performing Organization Address [facility]/ZIP Co de Phone Number [facility] [place] [address] * (ABNORMAL) Hemoglobin (09/11/2017 5:00 PM EDT) Hemoglobin 11.6(L) 13.7 - 16.5 gm/dL [facility] Blood specimen (specimen) 09/11/2017 5:00 PM EDT 09/11/2017 5:25 PM EDT Narrative Resulting Agency Comment Spec In Lab Pablo Govea MD HEMATOLOGY ORDERABL ES Performing Organization Address [facility] Co de Phone Number [facility] [place] [address] * Potassium (09/11/2017 5:00 PM EDT) Potassium 4.1 3.5 - 5.0 mmol/L [facility] ORDERABLE S [facility] [place] [address] * (ABNORMAL) BLOOD GAS 2 ARTERIAL (09/11/2017 2:09 PM EDT) pH, Arterial 7.32(L) 7.35 - 7.45 [facility] PCO2, Arterial 39 35 - 45 mmHg [facility] PO2, Arterial 101 85 - 104 mmHg [facility] Bicarbonate, Arterial 19.8(L) 20.0 - 26.0 mmol/L [facility] Base Excess, Arterial -6.2(L) -3.0 - 3.0 mmol/L [facility] Hgb Blood Gas 13.8 13.7 - 16.5 gm/dL [facility] Oxyhemoglobin, Arterial 95.1 94.0 - 97.0 % [facility] Carboxyhemoglob in, Arterial 0.9 % [facility] Comment: Nonsmokers: 0.5-1.5% COHB Smokers: Variable, but usually less than 10% Toxic: 20-30% COHB Lethal: Greater than 60% COHB Methemoglobin, Arterial 0.7 <=1.5 % [facility] Na Whole Blood 138 135 - 145 mmol/L [facility] K Whole Blood 4.1 3.5 - 5.0 mmol/L [facility] Comment: Please note: Patients with WBC >100,000 may have falsely elevated Potassium levels. Contact the Clinical Chemistry Laboratory if there are any questions. ICa Whole Blood 1.23 1.15 - 1.33 mmol/L [facility] Comment: Note: ??Total bilirubin higher than 20 mg/dL may lead to falsely low ionized calcium. CL Whole Blood 111(H) 98 - 107 mmol/L [facility] Gluc Whole Bld 155 65 - 199 mg/dL [facility] Comment:Diabetes: >=200 mg/d L plus symptoms. Lactate WB 1.3 0.5 - 2.2 mmol/L [facility] FIO2 Art 40 % [facility] PF Ratio Art 252 [facility] Blood specimen (specimen) 09/11/2017 2:09 PM EDT 09/11/2017 2:09 PM EDT Pablo Govea MD POINT OF CARE TEST ORDERABLES Performing Organization Address City/[facility]/ZIP Co de Phone Number [facility] [place] [address] * POCT Glucose (09/11/2017 1:33 PM EDT) Glucose, POC 138 65 - 199 mg/dL [facility] Comment: Supplemental ranges: <140 mg/dL before meals <180 mg/dL all other times of the day Blood specimen (specimen) 09/11/2017 1:33 PM EDT 09/11/2017 1:33 PM EDT Pablo Govea MD POINT OF CARE TEST ORDERABLES Performing Organization Address City/[facility]/ZIP Co de Phone Number [facility] [place] [address] * Prepare Albumin 5% in 250 mL (09/11/2017 11:56 AM EDT) Dispensed? Yes [facility] Blood specimen (specimen) No Charge / Unknown 09/11/2017 11:56 AM EDT 09/11/2017 11:58 AM EDT Narrative Resulting Agency Comment Spec In Lab David YE BLOOD BANK LAB O RDERABLES [facility] [place] [address] * (ABNORMAL) BLOOD GAS 2 ARTERIAL (09/11/2017 11:37 AM EDT) pH, Arterial 7.30(L) 7.35 - 7.45 [facility] PCO2, Arterial 45 35 - 45 mmHg [facility] PO2, Arterial 260(H) 85 - 104 mmHg [facility] Bicarbonate, Arterial 21.7 20.0 - 26.0 mmol/L [facility] Base Excess, Arterial -4.7(L) -3.0 - 3.0 mmol/L [facility] Hgb Blood Gas 12.9(L) 13.7 - 16.5 gm/dL [facility] Oxyhemoglobin, Arterial 97.7(H) 94.0 - 97.0 % [facility] Carboxyhemoglob in, Arterial 0.4 % [facility] Comment: Nonsmokers: 0.5-1.5% COHB Smokers: Variable, but usually less than 10% Toxic: 20-30% COHB Lethal: Greater than 60% COHB Methemoglobin, Arterial 0.8 <=1.5 % [facility] Na Whole Blood 138 135 - 145 mmol/L [facility] K Whole Blood 4.0 3.5 - 5.0 mmol/L [facility] Comment: Please note: Patients with WBC >100,000 may have falsely elevated Potassium levels. Contact the Clinical Chemistry Laboratory if there are any questions. ICa Whole Blood 1.21 1.15 - 1.33 mmol/L [facility] Comment: Note: ??Total bilirubin higher than 20 mg/dL may lead to falsely low ionized calcium. CL Whole Blood 112(H) 98 - 107 mmol/L [facility] Gluc Whole Bld 139 65 - 199 mg/dL [facility] Comment:Diabetes: >=200 mg/d L plus symptoms. Lactate WB 1.4 0.5 - 2.2 mmol/L [facility] FIO2 Art 100 % [facility] PF Ratio Art 260 [facility] Blood specimen (specimen) 09/11/2017 11:37 AM EDT 09/11/2017 11:37 AM EDT Pablo Govea MD POINT OF CARE TEST ORDERABLES [facility] [place] [address] * XR Chest PA or AP 1 [...] (Bezet) 423 ms MUSE SYSTEM Calculated R [place] 49 degrees MUSE SYSTEM Calculated T [place] 42 degrees MUSE SYSTEM INTERPRETATION Atrial fibrillation with slow ventricular response T wave abnormality, consider inferior ischemia Abnormal ECG When compared with ECG of 01-SEP-2017 09:11, Atrial fibrillation has replaced Sinus rhythm Confirmed by MD Afia, Albert [email or web address] ([id number]) on 09/11/2017 10:06:48 PM MUSE SYSTEM 09/11/2017 11:2 4 AM EDT 09/11/2017 10:06 PM EDT Pablo Govea MD ECG ORDERABLES Performing Organization Address City/[facility]/ZIP Co de Phone Number MUSE SYSTEM * (ABNORMAL) Thrombin time (09/11/2017 10:15 AM EDT) Thrombin Time 22(H) 15 - 20 sec [facility] Comment: A prolongation in the [...] Lab Pablo Govea MD HEMATOLOGY ORDERABL ES [facility] [place] [address] * Fibrinogen (09/11/2017 10:15 AM EDT) Pathologist [facility] Fibrinogen 193 180 - 510 mg/dL [facility] Comment: Called by: ambreen, Read back by: Molly Villavicencio, Date/Time:09/11/17 10:36. A fibrinogen level >100 mg/dL is adequate for hemostasis in most patients without underlying bleeding disorders. Blood specimen (specimen) 09/11/2017 10:15 AM EDT 09/11/2017 10:19 AM EDT Narrative Resulting Agency Comment Spec In Lab Pablo Govea MD HEMATOLOGY ORDERABL ES Performing Organization Address [facility] Co de Phone Number [facility] [place] [address] * APTT (09/11/2017 10:15 AM EDT) Partial Thromboplastin Time 34 25 - 35 sec [facility] Comment: The recommended therapeutic range for full dose, unfractionated heparin at [facility] is 80 ? 114 seconds. The use of the anti-Xa (heparin) level rather than the PTT is recommended for monitoring anticoagulation intensity in critically ill patients receiving unfractionated heparin by continuous IV infusion. Blood specimen (specimen) 09/11/2017 10:15 AM EDT 09/11/2017 10:19 AM EDT Narrative Resulting Agency Comment Spec In Lab Pablo Govea MD HEMATOLOGY ORDERABL ES Performing Organization Address [facility] Co de Phone Number [facility] [place] [address] * (ABNORMAL) Prothrombin Time (09/11/2017 10:15 AM EDT) Prothrombin Time 17.5(H) 11.8 - 14.0 sec [facility] International Normalization Ratio 1.5(H) 0.9 - 1.1 [facility] Comment: An INR <2.0 indicates [...] Lab Pablo Govea MD HEMATOLOGY ORDERABL ES [facility] [place] [address] * (ABNORMAL) Hemogram (09/11/2017 10:15 AM EDT) White Blood Cell 9.3 4.0 - 9.5 x10(3)/mc L [facility] Red Blood Cell 3.32(L) 4.58 - 5.54 x10(6)/mc L [facility] Hemoglobin 10.0(L) 13.7 - 16.5 gm/dL [facility] Hematocrit 30.3(L) 40.5 - 48.5 % [facility] Comment: This result has been called to ADWOA ORELLANA by RO LOVE on 09 11 2017 at 1028, and has been read back. Mean Cell Volume 91.3 82.9 - 93.1 fL [facility] Mean Cell Hemoglobin 30.1 27.5 - 32.1 pg [facility] Mean Cell Hemoglobin Concentration 33.0 32.0 - 35.7 gm/dL [facility] Platelet 161 145 - 357 x10(3)/mc L [facility] RDW Standard Deviation 43.3 36.0 - 45.0 fL [facility] RDW coefficient of variation 13.0 11.4 - 13.8 % [facility] Mean Platelet Volume 9.4 7.6 - 12.9 fL [facility] NRBC% auto 0.0 % [facility] NRBC Absolute 0.000 0.000 - 0.000 x10(3)/mc L [facility] Blood specimen (specimen) 09/11/2017 10:15 AM EDT 09/11/2017 10:19 AM EDT Narrative Resulting Agency Comment Spec In Lab Pablo Govea MD HEMATOLOGY ORDERABL ES [facility] [place] [address] * (ABNORMAL) BLOOD GAS 2 ARTERIAL (09/11/2017 10:13 AM EDT) pH, Arterial 7.29(Criti krishna) 7.35 - 7.45 [facility] Comment:Noted by wind instrument repairer. PCO2, Arterial 45 35 - 45 mmHg [facility] PO2, Arterial 87 85 - 104 mmHg [facility] Bicarbonate, Arterial 21.3 20.0 - 26.0 mmol/L [facility] Base Excess, Arterial -5.3(L) -3.0 - 3.0 mmol/L [facility] Hgb Blood Gas 10.7(L) 13.7 - 16.5 gm/dL [facility] Oxyhemoglobin, Arterial 94.1 94.0 - 97.0 % [facility] Carboxyhemoglob in, Arterial 0.3 % [facility] Comment: Nonsmokers: 0.5-1.5% COHB Smokers: Variable, but usually less than 10% Toxic: 20-30% COHB Lethal: Greater than 60% COHB Methemoglobin, Arterial 0.3 <=1.5 % [facility] Na Whole Blood 136 135 - 145 mmol/L [facility] K Whole Blood 4.2 3.5 - 5.0 mmol/L [facility] Comment: Please note: Patients with WBC >100,000 may have falsely elevated Potassium levels. Contact the Clinical Chemistry Laboratory if there are any questions. ICa Whole Blood 1.22 1.15 - 1.33 mmol/L [facility] Comment: Note: ??Total bilirubin higher than 20 mg/dL may lead to falsely low ionized calcium. CL Whole Blood 110(H) 98 - 107 mmol/L [facility] Gluc Whole Bld 165 65 - 199 mg/dL [facility] Comment:Diabetes: >=200 mg/d L plus symptoms. Lactate WB 1.8 0.5 - 2.2 mmol/L [facility] Blood specimen (specimen) 09/11/2017 10:13 AM EDT 09/11/2017 10:13 AM EDT Pablo Govea MD POINT OF CARE TEST ORDERABLES [facility] [place] [address] * (ABNORMAL) BLOOD GAS 2 ARTERIAL (09/11/2017 9:36 AM EDT) pH, Arterial 7.30(L) 7.35 - 7.45 [facility] PCO2, Arterial 45 35 - 45 mmHg [facility] PO2, Arterial 227(H) 85 - 104 mmHg [facility] Bicarbonate, Arterial 21.5 20.0 - 26.0 mmol/L [facility] Base Excess, Arterial -4.9(L) -3.0 - 3.0 mmol/L [facility] Hgb Blood Gas 10.6(L) 13.7 - 16.5 gm/dL [facility] Oxyhemoglobin, Arterial 98.5(H) 94.0 - 97.0 % [facility] Carboxyhemoglob in, Arterial 0.3 % [facility] Comment: Nonsmokers: 0.5-1.5% COHB Smokers: Variable, but usually less than 10% Toxic: 20-30% COHB Lethal: Greater than 60% COHB Methemoglobin, Arterial 0.3 <=1.5 % [facility] Na Whole Blood 134(L) 135 - 145 mmol/L [facility] K Whole Blood 4.6 3.5 - 5.0 mmol/L [facility] Comment: Please note: Patients with WBC >100,000 may have falsely elevated Potassium levels. Contact the Clinical Chemistry Laboratory if there are any questions. ICa Whole Blood 1.07(L) 1.15 - 1.33 mmol/L [facility] Comment: Note: ??Total bilirubin higher than 20 mg/dL may lead to falsely low ionized calcium. CL Whole Blood 107 98 - 107 mmol/L [facility] Gluc Whole Bld 183 65 - 199 mg/dL [facility] Comment:Diabetes: >=200 mg/d L plus symptoms. Lactate WB 1.8 0.5 - 2.2 mmol/L [facility] Blood specimen (specimen) 09/11/2017 9:36 AM EDT 09/11/2017 9:36 AM EDT Pablo Govea MD POINT OF CARE TEST ORDERABLES [facility] [place] [address] * Platelet count (09/11/2017 9:30 AM EDT) Platelet 176 145 - 357 x10(3)/mc L [facility] Immature Plt % 1.4 0.0 - 7.4 % [facility] Comment: Limitation of the Immature Platelet Fraction (IPF)-May be less reliable when the platelet count is less than 75i288/uL due to statistical imprecision. The IPF value [...] in a decreased state of production. References: [employer] The Clinical Value of the Immature Platelet Fraction (IPF) in Cell Recovery Document Number 10-1143 11/2010 [employer] The Role of the Immature Platelet Fraction (IPF) in the Differential Diagnosis of Thrombocytopenia, Document MKT-[id number] V011/04/13 P011/06 Blood specimen (specimen) 09/11/2017 9:30 AM EDT 09/11/2017 9:38 AM EDT Narrative Resulting Agency Comment Spec In Lab Pablo Govea MD HEMATOLOGY ORDERABL ES Performing Organization Address [facility]/ZIP Co de Phone Number [facility] [place] [address] * (ABNORMAL) Hemoglobin and Hematocrit, blood (09/11/2017 9:30 AM EDT) Hemoglobin 9.9(L) 13.7 - 16.5 gm/dL [facility] Hematocrit 29.2(L) 40.5 - 48.5 % [facility] Comment: This result has been called to SIENA VILLAVICENCIO by DILLAN NASCIMENTO on 09 11 2017 at 0954, and has been read back. Blood specimen (specimen) 09/11/2017 9:30 AM EDT 09/11/2017 9:38 AM EDT Narrative Resulting Agency Comment Spec In Lab Pablo Govea MD HEMATOLOGY ORDERABL ES Performing Organization Address [facility] Co de Phone Number [facility] [place] [address] * Fibrinogen (09/11/2017 9:30 AM EDT) Fibrinogen 182 180 - 510 mg/dL [facility] Comment: Called by: eds, Read back by: Molly Villavicencio, Date/Time:09/11/17 09:51. A fibrinogen level >100 mg/dL is adequate for hemostasis in most patients without underlying bleeding disorders. Blood specimen (specimen) 09/11/2017 9:30 AM EDT 09/11/2017 9:38 AM EDT Narrative Resulting Agency Comment Spec In Lab Pablo Govea MD HEMATOLOGY ORDERABL ES Performing Organization Address [facility] Co de Phone Number [facility] [place] [address] * (ABNORMAL) BLOOD GAS 2 ARTERIAL (09/11/2017 9:15 AM EDT) pH, Arterial 7.31(L) 7.35 - 7.45 [facility] PCO2, Arterial 46(H) 35 - 45 mmHg [facility] PO2, Arterial 317(H) 85 - 104 mmHg [facility] Bicarbonate, Arterial 22.2 20.0 - 26.0 mmol/L [facility] Base Excess, Arterial -4.1(L) -3.0 - 3.0 mmol/L [facility] Hgb Blood Gas 10.8(L) 13.7 - 16.5 gm/dL [facility] Oxyhemoglobin, Arterial 98.5(H) 94.0 - 97.0 % [facility] Carboxyhemoglob in, Arterial 0.3 % [facility] Comment: Nonsmokers: 0.5-1.5% COHB Smokers: Variable, but usually less than 10% Toxic: 20-30% COHB Lethal: Greater than 60% COHB Methemoglobin, Arterial 0.3 <=1.5 % [facility] Na Whole Blood 134(L) 135 - 145 mmol/L [facility] K Whole Blood 5.0 3.5 - 5.0 mmol/L [facility] Comment: Please note: Patients with WBC >100,000 may have falsely elevated Potassium levels. Contact the Clinical Chemistry Laboratory if there are any questions. ICa Whole Blood 0.96(L) 1.15 - 1.33 mmol/L [facility] Comment: Note: ??Total bilirubin higher than 20 mg/dL may lead to falsely low ionized calcium. CL Whole Blood 106 98 - 107 mmol/L [facility] Gluc Whole Bld 188 65 - 199 mg/dL [facility] Comment:Diabetes: >=200 mg/d L plus symptoms. Lactate WB 1.5 0.5 - 2.2 mmol/L [facility] Blood specimen (specimen) 09/11/2017 9:15 AM EDT 09/11/2017 9:15 AM EDT Pablo Govea MD POINT OF CARE TEST ORDERABLES [facility] [place] [address] * (ABNORMAL) BLOOD GAS 2 ARTERIAL (09/11/2017 8:12 AM EDT) pH, Arterial 7.35(L) 7.35 - 7.45 [facility] PCO2, Arterial 41 35 - 45 mmHg [facility] PO2, Arterial 148(H) 85 - 104 mmHg [facility] Bicarbonate, Arterial 22.3 20.0 - 26.0 mmol/L [facility] Base Excess, Arterial -3.3(L) -3.0 - 3.0 mmol/L [facility] Hgb Blood Gas 13.1(L) 13.7 - 16.5 gm/dL [facility] Oxyhemoglobin, Arterial 97.8(H) 94.0 - 97.0 % [facility] Carboxyhemoglob in, Arterial 0.6 % [facility] Comment: Nonsmokers: 0.5-1.5% COHB Smokers: Variable, but usually less than 10% Toxic: 20-30% COHB Lethal: Greater than 60% COHB Methemoglobin, Arterial 0.1 <=1.5 % [facility] Na Whole Blood 140 135 - 145 mmol/L [facility] K Whole Blood 3.9 3.5 - 5.0 mmol/L [facility] Comment: Please note: Patients with WBC >100,000 may have falsely elevated Potassium levels. Contact the Clinical Chemistry Laboratory if there are any questions. ICa Whole Blood 1.23 1.15 - 1.33 mmol/L [facility] Comment: Note: ??Total bilirubin higher than 20 mg/dL may lead to falsely low ionized calcium. CL Whole Blood 110(H) 98 - 107 mmol/L [facility] Gluc Whole Bld 118 65 - 199 mg/dL [facility] Comment:Diabetes: >=200 mg/d L plus symptoms. Lactate WB 2.1 0.5 - 2.2 mmol/L [facility] FIO2 Art 70 % [facility] PF Ratio Art 211 [facility] Blood specimen (specimen) 09/11/2017 8:12 AM EDT 09/11/2017 8:12 AM EDT Narrative Authorizing Provider Result Sarah Govea MD POINT OF CARE TEST ORDERABLES Performing Organization Address [facility] Co de Phone Number [facility] [place] [address] * Prepare RBC (09/11/2017 6:30 AM EDT) Dispensed? 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 Atherosclerosis [place] coronary artery of [place] heart with angina pectoris Atherosclerosis [place] coronary artery [place] heart with angina pectoris S/P CABG x 2 Postsurgical aortocoronary bypass status documented in this encounter Admitting Diagnoses Diagnosis Atherosclerosis of [place] coronary artery of [place] heart with angina pectoris documented in this [...] on Mon09/11/17 at 1615, Until Discontinued, Give WA if unable to take PO, Routine Given [...] Routine 040 (Given - Provider: Belgica Olson RN)0924 (Given - Provider: Mara Hood RN)163 (Given - Provider: Mara Hood, LENY)2007 (Not Given - Provider: Mar Nash RN - Reason: Patient/family refused) 0542 (Given - Provider: Mar Nash RN)1031 (Given - Provider: Mara Hood, LENY)1725 (Given - Provider: Mara Hood, LENY)2017 (Given - Provider: Elías Smith RN) 040 (Given - Provider: Юлия Chacon RN)0925 (Given - Provider: Mara Hood RN) AMIOdarone (CORDARONE) bolus from bag 150 [...] Discontinued, Routine 2018 (Given - Provider: Elías J Sarah, RN - Comment: .47) 0925 (Given - Provider: Mara Hood RN - Comment: QTC .46) aspirin chewable tablet 81 mg(Linked Group 2) 81 mg, Oral, DAILY, First dose (after last modification) on Mon09/11/17 at 1615, Until Discontinued, Routine 0925 (Given - Provider: Mara Hood RN) 0828 (Given - Provider: Mara Hood RN) 0926 (Given - Provider: Mara Hood RN) aspirin suppository 300 mg(Linked Group 2) 300 mg, Rectal, DAILY, First dose (after last modification) on Mon09/11/17 at 1615, Until Discontinued, Give WA if unable to take PO, Routine 0925 [...] Hood RN) 0835 (Given - Provider: Mara Hood RN)1718 (Given - Provider: Mara Hood RN) 0926 (Given - Provider: Mara Hood RN) insulin [...] RN)2139 (Given - Provider: Юлия Chacon RN) 0502 (Given - Provider: Юлия Chacon, LENY) pantoprazole (PROTONIX) injection 40 mg(Linked Group 4) [...] Until Discontinued 2007 (Given - Provider: Mar Nash, LENY) sodium chloride 0.9 % flush 5 mL 5 mL, Intravenous, EVERY 8 HOURS, First dose on Mon09/12/17 at 1100, Until Discontinued, Routine 0300 (Not Given - Provider: Belgica Olson RN - Reason: See comment - Comment: given earlier)1100 (Not Given - Provider: Mara Hood, LENY - Reason: Contraindicated)2007 (Given - Provider: Mar Nash RN) 0300 (Not Given - Provider: Mar Nash RN - Reason: Order parameters not met - Comment: IV infusing)1100 (Given - Provider: Mara Hood RN)1900 (Given - Provider: Elías Smith RN) 0300 (Given - Provider: Юлия Chacon RN) [...] on Mon09/11/17 at 1615, Until Discontinued, Give WA if unable to take PO, Routine Group 3: POCT Fingerstick Glucose (CANCELED) Routine, 4 TIMES DAILY BEFORE MEALS & AT BEDTIME, First occurrence on 3/20/18 at 1100, Until Specified, Consider choosing FOUR [...] Routine documented in this encounter Care Teams Commander [employer] Relationship Specialty Start Date End Date Devorah Epstein MD [address] [place] [address] PCP - General Family Medicine 09/01/17 documented as of this encounter
--- OUTSIDE RECORDS SUMMARY | 2024-04-29 19:15 | XMS_ITS | Encounter Summary ---
Author Organization [facility] [place] [address] Care Team Providers Care Press Technician Name Role Phone Unavailable Primary Care Provider Unavailabl e Encounter Details Date Type Department Care Team (Late st Contact Info) Description 08/29/2017 [place] [address] Didier Soler PA [facility] [place] [address] Abnormal stress test; LOYOLA (dyspnea on exertion) [...] AM EST Hospital Encounter [place] [id number] Arrived documented as of this encounter Procedures [...] ?KENDRICK Thomas ?(Age): 1940(77y) Med Rec#: ? [id number] ?Sex: ?M ? Site Loc: ? Ht / Wt: ??(cm)/ (kg) ? Pt. Loc: ? Study Date: ?? 09/11/2017 ?Pt. Type: Tape: ? Reading: Kalyan Tinsley ([id number]) Diagnosis: SUMMARY: 1. Intraoperative TONIE performed at [...] ? Mid-Inferior ?Normal ? Mid-Inferoseptal ?Normal ? [place]-Septal ? Normal ? [place]-Anterior ? Normal ? [place]-Lateral ?Normal ? [place]-Inferior ? Normal ? [place]-Tip ?Normal ? This report has been electronically signed by: Kalyan Tinsley MD ? 09/11/2017 10:34:09 Images reviewed and interpretation verified [facility] Cardiac Ultrasound Laboratory Procedure Note Kalyan Tinsley MD - 09/11/2017 Procedure: Transesophageal Echocardiogram Patient: KENDRICK BALL(Age): 1940(77y) Med Rec#: [id number] Sex: M Site Loc: Ht / Wt: (cm)/ (kg) Pt. Loc: Study Date: 09/11/2017 Pt. Type: Tape: Reading: Kalyan Tinsley ([id number]) Diagnosis: SUMMARY: 1. Intraoperative TONIE performed at [...] Normal Mid-Posterolateral Normal Mid-Inferior Normal Mid-Inferoseptal Normal [place]-Septal Normal [place]-Anterior Normal [place]-Lateral Normal [place]-Inferior Normal [place]-Tip Normal This report has been electronically signed by: Kalyan Tinsley MD 09/11/2017 10:34:09 Images reviewed and interpretation verified [facility] Cardiac Ultrasound Laboratory Unknown ECHO ORDERABLES * CARDIAC CATHETERIZATION (09/01/2017 11:10 AM EST) Anatomical Region Laterality Modality Other Narrative 09/11/2017 9:11 AM EDT ?[facility] ? Cardiac Catheterization/Intervention Report ? Patient Name: Keegan Cabrera. ? Procedure Date: 09/01/2017 ? A #: [id number] ? Primary Physician: Brianna Brock ? Case #: [id number] ? File Name: [id number] ? Catheterization Order Number: [id number] ? [facility] ? Final Report [place], [place] ? Patient Name: ? Peter P. Chernovetz ?ID#: ?[id number] ? : ?1940 ? Procedure Date: ? [...] Deployment ?* Access Site Angiography ? History ?eKegan Cabrera is a 77 year old man. [...] presented with: stable angina (w/i 42 days). [place] ?Cardiovascular Society angina class was III. This [...] pigtail. ??This ?demonstrated a mild (~15 mmHg) bevw-nb-dfpg gradient when comparing from ?LV apex to aorta. ??After an induced PVC there was not an increase in the ?sbak-jn-wpnv difference or decrease in the aortic pulse pressure noted ?(no Brockenbrough-Braunwald sign). ??With the distal portion of the ?catheter pulled back to the LVOT there was no ysdv-sc-ugky gradient noted ?across the aortic valve. ?Diagnostic [...] Procedure Note Brianna Brock MD - 09/13/2017 [facility] Cardiac Catheterization/Intervention Report Patient Name: Keegan Cabrera Procedure Date: 09/01/2017 A #: [id number] Primary Physician: Brianna Brock Case #: [id number] File Name: [id number] Catheterization Order Number: [id number] [facility] FinalReport [place], [place] Patient Name: Keegan Cabrera ID#:[id number] :1940 Procedure Date: September 01, 2017 Case [...] presented with: stable angina (w/i 42 days). [place] Cardiovascular Society angina class was III. This [...] 18.9 minutes, dose area product was 109,126 zNOew4hgc air kerma was 1,600 mGY. The patient [...] dual-lumen pigtail.This demonstrated a mild (~15 mmHg) ahhn-jy-pmfq gradient when comparingfrom LV apex to aorta. After an induced PVC there was not an increase inthe vpai-xf-nmrq difference or decrease in the aortic pulse pressurenoted (no Brockenbrough-Braunwald sign). With the distal portion of the catheter pulled back to the LVOT there was no jvlt-qg-cdqx gradientnoted across the aortic valve. Diagnostic angiography [...]
--- OUTSIDE RECORDS SUMMARY | 2024-04-29 19:15 | XMS_ITS | Encounter Summary ---
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 Impression 77-year-old gentleman who is a reasonable [...] 30 minute visit 20 minutes were spent [id number] discussing the risks and benefits of CABG surgery documented in this encounter Plan of Treatment Upcoming Encounters Date Type Department Care Team (Late st Contact Info) Description 06/26/2024 10:00 AM EST Hospital Encounter Non-[place] [phone] Arrived documented as of this encounter Procedures Procedure Name Priority Date/Time Associated Diagnosis Comments ENDOSCOPIC HARVEST VEIN(S) FOR CABG Routine 09/01/2017 1:59 PM EST Atherosclerosis 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 @CABG,USING ARTERIAL GRAFT;SINGLE ARTERIAL GRAFT Routine 09/01/2017 1:59 PM EST Atherosclerosis 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 @CABG,VENOUS & ARTERIAL GRAFT;SINGLE VEIN GRAFT Routine 09/01/2017 1:59 PM EST Atherosclerosis 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 documented in this [...] Panel (non-fasting) (09/01/2017 3:15 PM EST) Glucose 119 65 - 199 mg/dL [facility] Comment:Diabetes: >=200 mg/d L plus symptoms Blood Urea Nitrogen 21(H) 10 - 20 mg/dL [facility] Creatinine 1.12 0.80 - 1.50 mg/dL [facility] Sodium 141 135 - 145 mmol/L [facility] Potassium 3.9 3.5 - 5.0 mmol/L [facility] Comment: Please note: ??Patients with WBC >100,000 may have falsely elevated Potassium levels. ??For accurate Potassium quantification in these patients send serum separator tube (gold top) for subsequent determinations. ??Contact the Clinical Chemistry Laboratory if there are any questions. Chloride 103 98 - 107 mmol/L [facility] Carbon Dioxide 24 22 - 31 mmol/L [facility] Anion Gap 14 5 - 15 mmol/L [facility] Calcium 10.1 8.5 - 10.5 mg/dL [facility] Est Glomerular Filtration Rate >60 >=60 [facility] Comment: The reported eGFR should be multiplied by 1.2 for patients. The MDRD is not an appropriate measure of renal function for patients with body mass extremes or in patients with acute kidney failure. http://[facility] [employer] [facility]/DHnkdep http://[facility] [employer] [facility]/DHMCnkf Blood specimen (specimen) 09/01/2017 3:15 PM EST 09/01/2017 3:30 PM EST Narrative Resulting Agency Comment Spec In Lab Pablo Govea MD CHEMISTRY ORDERABLE S Performing Organization Address City/State/[facility] Co de Phone Number [facility] [place] [address] documented in this encounter Visit Diagnoses Diagnosis Atherosclerosis 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 Atherosclerosis 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 documented in this encounter Care Teams Metal Checker Relationship Specialty Start Date End Date Devorah Epstein MD [address] [place] [address] PCP - General Family Medicine 09/01/17 documented as of this encounter
--- OUTSIDE RECORDS SUMMARY | 2024-04-29 19:15 | XMS_ITS | Encounter Summary ---
Author Organization [facility] [place] [address] Care Team Providers Care Chief Power Dispatcher Name Role Phone Devorah Epstein MD Primary Care Provider [phone] Reason for Visit * Auth/Cert Specialty Diagnoses / Procedures Referred By Binh taylor Referred To Contact Diagnoses Atherosclerosis of [place] coronary artery of [place] heart with angina pectoris cad UNKNOWN Procedures PRO CABG, ARTERIAL, SINGLE PRO CABG, ARTERY-VEIN, SINGLE PRO ENDOSCOPY W/VIDEO-ASST VEIN HARVEST, CABG @CABG, USING ARTERIAL GRAFT;SINGLE ARTERIAL GRAFT (WRVU 33.75) @CABG, VENOUS & ARTERIAL GRAFT;SINGLE VEIN GRAFT (WRVU 3.61) ENDOSCOPIC HARVEST VEIN(S) FOR CABG (WRVU 0.31) Referral ID Status Reason Start Date Expiration Date Visits Re quested Visits Authorized [id number] 1 1 Encounter Details Date Type Department Care Team (Late st Contact Info) Description 09/11/2017 7:22 AM EDT Anesthesia [place] [address] Kalyan Tinsley MD [facility] [place] [address] Keegan Woodard MD [facility] [address] Anesthesia Record Procedure Summary Procedure Name Responsible [...] Note OM 0946 Quick Note LAD 0951 Hand Knitter 0954 An Clamp Remove 0959 CP Bypass [...] Removal LDA Cath/EP Sheath 09/01/17; 1009; 6 Setswana (Fr); Right; Femoral 09/01/17 1009 by Keegan Woodson 09/11/17 1900 by Dolly Staley RN Chest Tube 09/11/17; Right; anterior; mediastinum; ([address] chest tube); 09/12/17; 0800 09/11/17 0000 by Siena Villavicencio RN 09/12/17 0800 by Milla Messer RN (RETIRED) Peripheral IV Line - Single Lumen 09/11/17; 0639; median cubital vein (antecubital fossa), right; [id number] catheter system; 20 gauge; Kaylah MICHELE; distraction, intradermal injection, tolerated well; 1; Location1: (select this item first), metacarpal vein (top of hand), right; 09/14/17; 1200 09/11/17 0639 by Parvin Romero RN 09/14/17 1200 by Dolly Staley RN Urethral Catheter 09/11/17; 0745; Surg diamond longer than 2 hours; other (see comments) ([facility] indwelling catheter with core temperature [...] Secured at Teeth: 24 cm; Inserted by: waldemar ji; Removal Date: 09/11/17; Removal Time: 1434 [...] Woodard MD - 09/11/2017 3:49 PM EDT [facility] Department of Anesthesiology Post-procedure Note Patient: Keegan Thomas Deborah Procedure Summary Date Anesthesia Start Anesthesia Stop Room / Location 09/11/17 0722 1103 [facility] OR 16 / [facility] MAIN OR Procedure Diagnosis Surgeon Responsible Provider @CABG, USING ARTERIAL GRAFT;SINGLE ARTERIAL GRAFT (WRVU 33.75) (N/A Chest); @CABG, VENOUS & ARTERIAL GRAFT;SINGLE VEIN GRAFT (WRVU 3.61) (N/A Chest); ENDOSCOPIC HARVEST VEIN(S) FOR CABG (WRVU 0.31) (Right Leg) 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 Atherosclerosis of [place] coronary artery of [place] heart with angina pectoris No past medical [...] AM EST Hospital Encounter [place] [address] Arrived documented as of this [...] mg documented in this encounter Care Teams Chief Power Dispatcher Relationship Specialty Start Date End Date Devorah Epstein MD [address] [place] [address] PCP - General Family Medicine 09/01/17 documented as of this encounter
--- OUTSIDE RECORDS SUMMARY | 2024-04-29 19:15 | XMS_ITS | Encounter Summary ---
Author Organization [facility] [place] [address] Care Team Providers Care Processing Inspector Name Role Phone Devorah Epstein MD Primary Care Provider Encounter Details Date Type Department Care Team (Latest Contact Info) Description 09/01/2017 3:26 PM EST - 09/01/2017 11:59 PM [facility] Hospital Encounter XRay at [address] [place] [address] Pablo Govea MD Atherosclerosis of [place] coronary artery of [place] heart with angina pectoris Discharge Disposition: Home [...] by mouth. 12/01 UNABLE TO FIND Saw brittono 09/15/2017 lactobacillus rhamnosus, GG, (CULTURELLE) 10 billion [...] AM EST Hospital Encounter [place] [address] Arrived documented as of this encounter Procedures Procedure Name Priority Date/Time Associated Diagnosis Comments XR CHEST PA AND LATERAL Routine 09/01/2017 3:54 PM EST Atherosclerosis of [place] coronary artery of [place] heart with angina pectoris documented in this [...] changes of the thoracic spine. 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
[2024-04-29 20:30] LABS: HCT 44.1 % (40.0-50.0); HGB 14.1 g/dL (13.5-17.5); MCH 29.8 pg (27.0-33.0); MCV 93 fL (80-95); MPV 11.6 fL (8.0-11.0); Platelet Count 134 10^3/uL (130-400); RBC 4.73 10^6/uL (4.36-5.78); RDW-SD 46.9 fL
[2024-04-29 20:47] LABS: Anion Gap 7.4 mmol/L (3-11); BUN 26 mg/dL (7-18); CO2 24.6 mmol/L (21.0-32.0); CREATININE 1.6 mg/dL (0.70-1.30); Calcium 10.1 mg/dL (8.5-10.1); Chloride 111 mmol/L (98-107); Estimated GFR 42.49 (mL/min/1.73m2); Glucose 103 mg/dL (74-106); Potassium 4.7 mmol/L (3.5-5.1); Sodium 143 mmol/L (136-145)
[2024-04-29 20:52] LABS: Hemoglobin A1C 6.4 % (<5.7)
== END 2024-04-29 19:04 | disposition home or self-care (01) ==
LOC: NCHCN 19:03
PROVIDERS: PCP Family Medicine; Visit Provider Family Medicine
DX: R73.03 Prediabetes (principal); N18.30 Chronic kidney disease, stage 3 unspecified
CPT/HCPCS: 80048; 85027; 83036

== ENCOUNTER → 2024-05-15 10:51 | Outpatient (BNVA) | payer MEDICARE, OTHER, SELFPAY | PROVIDERS: PCP Family Medicine; Referring Provider Family Medicine; Visit Provider Student in an Organized Health Care Education/Training Program | DX: Z95.810 Presence of automatic (implantable) cardiac defibrillator (principal) | CPT/HCPCS: 93279 ==

== ENCOUNTER → 2024-07-08 12:45 | Outpatient (BNVA) | payer MEDICARE, OTHER, SELFPAY | PROVIDERS: PCP Family Medicine; Referring Provider Family Medicine; Visit Provider Physician Assistant Surgical | DX: J84.9 Interstitial pulmonary disease, unspecified (principal); J47.9 Bronchiectasis, uncomplicated; J32.9 Chronic sinusitis, unspecified; Z87.01 Personal history of pneumonia (recurrent) | CPT/HCPCS: 99214 ==

== ENCOUNTER → 2024-10-17 10:42 | Outpatient (BNVA) | payer MEDICARE, OTHER, SELFPAY | PROVIDERS: PCP Family Medicine; Visit Provider Internal Medicine Cardiovascular Disease | DX: I35.0 Nonrheumatic aortic (valve) stenosis (principal); Z95.0 Presence of cardiac pacemaker; I48.19 Other persistent atrial fibrillation; I25.810 Atherosclerosis of coronary artery bypass graft(s) without angina pectoris | CPT/HCPCS: 99214 ==

== ENCOUNTER → 2024-12-05 14:17 | Outpatient (BNVA) | payer MEDICARE, OTHER, SELFPAY | PROVIDERS: PCP Family Medicine; Visit Provider Nurse Practitioner Gerontology | DX: N40.0 Benign prostatic hyperplasia without lower urinary tract symptoms (principal); Z80.42 Family history of malignant neoplasm of prostate; R39.9 Unspecified symptoms and signs involving the genitourinary system | CPT/HCPCS: 99213; 51798 ==

== ENCOUNTER 2024-12-10 18:05 | Outpatient (REF) | payer MEDICARE, OTHER, SELFPAY ==
[2024-12-11 19:11] LABS: PSA, Diagnostic 3.1 ng/mL (<=6.5)
== END 2024-12-10 18:06 | disposition home or self-care (01) ==
LOC: LBN 18:05
PROVIDERS: PCP Family Medicine; Visit Provider Nurse Practitioner Gerontology
DX: N40.0 Benign prostatic hyperplasia without lower urinary tract symptoms (principal); Z80.42 Family history of malignant neoplasm of prostate
CPT/HCPCS: 84153

== ENCOUNTER 2025-01-07 03:51 | Outpatient (CLI) | payer MEDICARE, OTHER, SELFPAY ==
[2025-01-07] MEDS: Levalbuterol HFA 15 GM INH 4 PUFF IH (15:44)
[2025-01-07] MEDS: Inhaler, Assist Device 1 EACH MC (15:44)
== END 2025-01-07 03:52 | disposition home or self-care (01) ==
PROVIDERS: PCP Family Medicine; Visit Provider Physician Assistant Surgical
DX: J44.89 Other specified chronic obstructive pulmonary disease (principal); J47.9 Bronchiectasis, uncomplicated
CPT/HCPCS: 94060; 94726; 94729

== ENCOUNTER → 2025-01-09 13:02 | Outpatient (BNVA) | payer MEDICARE, OTHER, SELFPAY ==
--- NOTE | 2025-03-10 08:37 | W.PFT ---
Date of service: 01/07/25 Time of Service: 14:54 Pulmonary Function Test Result Indications: ILD Impression 1. Good patient effort was noted. ATS standards for reproducibility were met. 2. Spirometry showed mild obstructive lung disease with an FEV1 of 93% (2.56 L) 3. Following the administration of a bronchodilator there was not a significant response 4. TLC was normal. No evidence of restrictive lung disease 5. DLCO was 74%, consistent with a mild defect in alveolar gas exchange
== END ==
PROVIDERS: PCP Family Medicine; Referring Provider Family Medicine; Visit Provider Physician Assistant Surgical
DX: J84.9 Interstitial pulmonary disease, unspecified (principal); J47.9 Bronchiectasis, uncomplicated; J32.9 Chronic sinusitis, unspecified
CPT/HCPCS: 99214; 00123

== ENCOUNTER 2025-04-09 00:12 | Outpatient (CLI) | payer MEDICARE, OTHER, SELFPAY ==
--- NOTE | 2025-04-09 12:30 | DI.US_ITS ---
APPROVED REPORT EXAM: Comprehensive 2D, Doppler, and color-flow Echocardiogram Patient Location: Out-Patient Library Cataloging Technician: Annmarie Echavarria RDCS (AE) Indications: Recheck aortic stenosis Other Information Study Quality: Adequate. Technically limited study due to body habitus. Conclusion Concentric left ventricular hypertrophy. Ejection fraction is 40 to 45%. There is global hypokinesis Grossly normal right ventricular size and function Both atria are moderately enlarged Aortic valve is calcified and trileaflet. There is mild aortic stenosis with a mean gradient 10 mmHg. Trace aortic regurgitation Mild mitral regurgitation Trace to mild tricuspid regurgitation. Estimated right ventricular systolic pressure is 45 mmHg Ascending aorta measures 4.6 cm Wall motion Left Ventricle The left ventricle is normal size. Left ventricular systolic function is moderately decreased.. Severe concentric left ventricular hypertrophy. There is global hypokinesis of the left ventricle. There is no ventricular septal defect visualized. LVEF is 40-45%. Right Ventricle Grossly normal size Preserved systolic function Atria Left atrium is moderately dilated. Right atrium is moderately dilated. The interatrial septum is intact with no evidence for an atrial septal defect. Aortic Valve Aortic valve is calcified. Aortic valve is trileaflet Mild aortic stenosis. Mean gradient is 10 mmHg Trace aortic regurgitation. Mitral Valve The mitral valve is normal in structure. No evidence of mitral valve stenosis. Mild mitral regurgitation. Tricuspid Valve The tricuspid valve is normal in structure. There is no tricuspid valve stenosis. Trace to mild tricuspid regurgitation. The RVSP is 44.7 mmHg. Pulmonic Valve The pulmonary valve is normal in structure. There is no pulmonic valvular stenosis. There is no pulmonic valvular regurgitation. Great Vessels Aortic root is mildly dilated. The ascending aorta is moderately dilated. Aortic arch is not well visualized. The IVC collapses <50% with inspiration. Pericardium There is no pericardial effusion. 2D Dimensions IVSD d PLAX 1.85 cm M: 0.6-1.2 Ao Root d 3.90 cm M: 3.1 - 3.7 LVPW d PLAX 1.81 cm M: 0.6 - 1.2 Ao Asc Diam d 4.60 cm M: 2.6 - 3.4 LVID d PLAX 4.20 cm M: 4.2 - 5.8 LVDs 3.30 cm M: 2.5 - 4.0 LV EF Teichholz 44.4 % FS 21.76 % LV EDV (Teich) 78.4 mL LV ESV (Teich) 43.6 mL Auto EF LV EDV A4C 235.3 mL LV EDV A2C 243.7 mL LV EDV BP 242.9 mL LV ESV A4C 141.5 mL LV ESV A2C 146.4 mL LV ESV BP 143.1 mL LVEF(%) A4C 39.9 % LVEF(%) A2C 39.9 % LVEF(%) BP 41.1 % LV SV A4C 93.8 ml LV SV A2C 97.3 ml LV SV BP 99.8 ml LV CO A4C 6.2 L/min LV CO A2C 7.3 L/min LV CO BP 6.7 L/min HR A4C 65.82 BPM HR A2C 74.54 BPM LV EDV Index (BP) LA Volume LA Length A4C 5.9 cm LA Length A2C 5.9 cm LA Area A4C s 28.45 cm2 LA Area A2C s 24.79 cm2 LA Vol A4C A-L 116.82 mL LA Vol A2C A-L 88.67 mL LA Vol Biplane A- L 101.8 mL LA Vol/BSA A4C A-L LA Vol/BSA A2C A-L LA Vol/BSA BP A-L 41.2 mL/m2 LA Vol A4C MOD 94.2 mL LA Vol A2C MOD 83.1 mL LA Vol BP MOD 87.9 mL RA Volume RA Area A4C 24.5 cm2 RA ESV A4C (A-L) 79.4mL RA Vol/BSA A4C A-L RA Length A4C 6.4 cm RA ESV A4C (MOD) 74.9mL LV Diastology MV E' lateral 0.074 (>0.1 m/s) MV E Vmax 1.15 (0.4-1.3 m/s) MV E/E' LAT 15.49 (<14) Aortic Valve AoV Vmax 2.15 m/s LVOT Vmax 0.88 m/s AoV Peak Grad 18.5 mmHg LVOT Peak Grad 3.1 mmHg AoV Area (Vmax) 1.43 cm2 LVOT VTI 0.170 m AoV VTI 0.343 m LVOT Mean Grad 1.9 mmHg AoV Mean Juan Alberto. 1.50 m/s LVOT SV 59.13 mL AoV Mean Grad 10.3 mmHg LVOT Diam s 2.10 cm AoV Area (VTI) 1.72 cm2 AV Regurg Peak Gr. 18.45 mmHg Velocity Ratio 0.41 Mitral Valve MV DT 160 (160-240 msec) MV Vmax TIPS 1.22 m/s MV Mean Grad 1.9 (<2mmHg) MV VTI 0.319 m Pulmonary Valve PV Vmax 0.87 (0.5-1.5 m/s) RVOT Vmax 0.62 m/s PV Peak Grad 3.0 mmHg RVOT Peak Gr. 1.6 mmHg PV Mean Juan Alberto 0.68 m/s RVOT VTI 0.095 m PV Mean Grad 2.0 mmHg RVOT Mean Gr. 0.8 mmHg Tricuspid Valve RA Pressure 8.00 mmHg TR Vmax 3.03 m/s TV S' 0.09 m/s TR Peak Grad 36.6 mmHg RVSP (TR) 44.7 mmHg
== END 2025-04-09 00:32 ==
LOC: DI 00:12
PROVIDERS: PCP Family Medicine; Visit Provider Internal Medicine Cardiovascular Disease
DX: I51.7 Cardiomegaly (principal)
CPT/HCPCS: 93306

== ENCOUNTER 2025-04-17 07:57 | Outpatient (CLI) | payer MEDICARE, OTHER, SELFPAY ==
--- NOTE | 2025-04-17 07:45 | RT.EKG_ITS ---
APPROVED REPORT Exam: Resting ECG Reason for Exam: afib Patient Location: O HR:93 bpm ECG Measurements Heart Rate [address] [id number] P [id number] QRSd 165 QRS 105 QT 424 T 266 QTc 528 Conclusion Atrial fibrillation...V-rate 90- 94, irreg A-activity Paired ventricular premature complexes...sequence of 2 V complexes LBBB/RBBB
== END 2025-04-17 07:58 | disposition home or self-care (01) ==
LOC: DI.CARD 07:58
PROVIDERS: PCP Family Medicine; Visit Provider Internal Medicine Cardiovascular Disease
DX: I48.19 Other persistent atrial fibrillation (principal); I25.810 Atherosclerosis of coronary artery bypass graft(s) without angina pectoris
CPT/HCPCS: 93010

== ENCOUNTER → 2025-04-17 12:49 | Outpatient (BNVA) | payer MEDICARE, OTHER, SELFPAY | PROVIDERS: PCP Family Medicine; Visit Provider Internal Medicine Cardiovascular Disease | DX: I35.0 Nonrheumatic aortic (valve) stenosis (principal); Z95.0 Presence of cardiac pacemaker; I48.19 Other persistent atrial fibrillation; I42.9 Cardiomyopathy, unspecified; I10 Essential (primary) hypertension; Z79.01 Long term (current) use of anticoagulants | CPT/HCPCS: 99214; 93005 ==

== ENCOUNTER → 2025-05-14 10:47 | Outpatient (BNVA) | payer MEDICARE, OTHER, SELFPAY | PROVIDERS: PCP Family Medicine; Visit Provider Registered Nurse | DX: I48.91 Unspecified atrial fibrillation (principal); I25.10 Atherosclerotic heart disease of native coronary artery without angina pectoris; I10 Essential (primary) hypertension; Z95.1 Presence of aortocoronary bypass graft; Z45.018 Encounter for adjustment and management of other part of cardiac pacemaker; Z79.02 Long term (current) use of antithrombotics/antiplatelets | CPT/HCPCS: 93279 ==